=== PATIENT | male | born 1955 | race Caucasian/White ===

== ENCOUNTER 2016-10-02 13:53 | Emergency (ER) | payer MEDICARE, MEDICAID ==
[~2016-10-02] VITALS: Ht 198.1 cm; Wt 122.5 kg
[~2016-10-02 13:53] MED LIST: ALPR1T PO; ALPR2TAB2 PO; AMLO5TAB2 PO; AMPH20TA2 PO; AMPH30TA2 PO; ASPI325T32 PO; ATOR10TA66 PO; CITA10TA PO; CLON2TAB22 PO; CLON2TAB3 PO; ESCT10T PO; HYDR1TAB8 PO; IBUP-30 PO; INSU100V5 SQ; KCL10CCR PO; LEVE500T PO; LIRA0.6P3 SQ; LISI5TAB; NFMET1000 PO; OLME1TAB25 PO; SULF1TAB38 PO; [UNRECOGNIZED DRUG - REMARK]
[2016-10-02] MEDS ORDERED: NS IV 500 ML 500 ML IV ONE (14:04)
[2016-10-02 14:10] LABS: BASOPHILS # (AUTO) 0.1 10^3/uL (0.0-0.1); BASOPHILS % (AUTO) 1 % (0-10); EOSINOPHILS # (AUTO) 0.2 10^3/uL (0.0-0.3); EOSINOPHILS % (AUTO) 2 % (0-10); LYMPHOCYTES # (AUTO) 2.6 X 10^3 (1.0-4.0); LYMPHOCYTES % (AUTO) 27 % (12-44); MEAN CORPUSCULAR HEMOGLOBIN 29 PG (25-34); MEAN CORPUSCULAR HGB CONC 35 G/DL (32-36); MEAN CORPUSCULAR VOLUME 85 FL (80-99); MEAN PLATELET VOLUME 9.8 FL (7.4-10.4); MONOCYTES # (AUTO) 0.6 X 10^3 (0.0-1.0); MONOCYTES % (AUTO) 6 % (0-12); NEUTROPHILS # (AUTO) 6.2 X 10^3 (1.8-7.8); NEUTROPHILS % (AUTO) 65 % (42-75); PLATELET COUNT 344 10^3/uL (130-400); RED BLOOD COUNT 5.72 10^6/uL (4.35-5.85); RED CELL DISTRIBUTION WIDTH 13.3 % (10.0-14.5); WHITE BLOOD COUNT 9.6 10^3/uL (4.3-11.0)
[2016-10-02 14:28] LABS: ALANINE AMINOTRANSFERASE 37 U/L (0-55); ALBUMIN 3.8 GM/DL (3.2-4.5); ALCOHOL < 10 MG/DL (<10); AMMONIA 21 UMOL/L (11-32); ANION GAP 7 MMOL/L (5-14); ASPARTATE AMINO TRANSFERASE 19 U/L (5-34); BILIRUBIN,TOTAL 0.4 MG/DL (0.1-1.0); BLOOD UREA NITROGEN 13 MG/DL (7-18); BUN/CREATININE RATIO 12; CALCIUM 8.7 MG/DL (8.5-10.1); CARBON DIOXIDE 26 MMOL/L (21-32); CHLORIDE 101 MMOL/L (98-107); CREATININE SERUM 1.06 MG/DL (0.60-1.30); GFR ESTIMATED > 60; GLUCOSE 280 MG/DL (70-105); MAGNESIUM 1.7 MG/DL (1.8-2.4); POTASSIUM 3.7 MMOL/L (3.6-5.0); SODIUM 134 MMOL/L (135-145)
--- NOTE | 2016-10-02 14:34 | Diagnostic Imaging Report ---
INDICATION: Difficulty speaking. TECHNIQUE: Routine non contrast-enhanced axial images were obtained from the skull base to the vertex. COMPARISON: 09/30/2013 FINDINGS: The ventricles and cortical sulci are diffusely prominent, compatible with age-related volume loss. There are confluent areas of abnormal, low attenuation in the periventricular white matter. This is consistent with chronic small vessel ischemic changes. Area of old small infarct is also noted involving the superolateral margins of the right frontal lobe. This is stable when compared to prior exam. There is no midline shift or mass-effect. No acute intra-axial hemorrhage is seen. There are no abnormal areas of increased or decreased density to suggest acute hemorrhage or edema. No extra-axial masses or collections are present. The bony calvarium is intact. The visualized paranasal sinuses are unremarkable. The mastoid air cells are clear. IMPRESSION: 1. No acute intracranial abnormality. No CT evidence of mass, acute infarct or intracranial hemorrhage. 2. Chronic small vessel ischemic changes in deep white matter. 3. Stable area of old small infarct involving the superolateral right frontal lobe. Dictated by: Dictated on workstation # [id number]
--- NOTE | 2016-10-02 14:39 | ED Neurological Problem ---
General Chief Complaint: Neuro-Stroke Like Symptoms Stated Complaint: CONFUSION Nursing Triage Note: Pt ambulatory to ED 3. Pt's family reports pt has had difficulty finding his words off and on for past 2 days. Family reports these symptoms are similar to pt's symptoms when he had a stroke 4 years ago. Pt alert but having diffuculty verbally answering questions during initial assessment. Family states pt "completely recovered" from prior stroke w/ no defecits. Nursing Sepsis Screen: No Definite Risk Source: patient, family Exam Limitations: clinical condition History of Present Illness Time seen by provider: 13:55 Initial Comments Patient ambulates into the emergency room with his significant other with complaints of difficulty finding words and speaking for about 2 days. Significant other is concerned because he apparently had a CVA several years ago that presented with similar symptoms. Patient woke up late today and has not taken his medications. Blood sugars have reportedly been high. Review of patient's chart notes that a prior MRI demonstrated stroke in the frontal lobe. A carotid ultrasound from 2013 was normal. Patient presents cuddling stuffed animals. Significant other states that he uses them for comfort since his stroke. Patient has been upset recently because his daughter has moved. She also reports symptoms have been present since patient returned from a libertarian 2 days ago. Patient is selectively cooperative with exam. Stroke activation was not pursued since symptoms have been present for 2 days. Patient denies any drug or alcohol use. He does have a history of hepatitis C but no mention of liver failure. Allergies and Home Medications Allergies Coded Allergies: NKANo Known Allergies (Verified Allergy, Unknown, 07/29/05) Home Medications Alprazolam 1 Mg Tab, 1-2 MG PO TID PRN for ANXIETY, (Reported) TAKES 1-2 (1MG) TABLETS NEEDED FOR ANXIETY Amlodipine Besylate 5 Mg Tab, 10 MG PO DAILY @ 1200 for 30 Days Prescribed by: FAUSTINO LARSON on 06/10/13 1435 Amphet Asp/Amphet/D-Amphet 20 Mg Tablet, 20 MG PO DAILY PRN for NERVOUSNESS for 0 Days Prescribed by: ALICJA QUINTANA on 10/01/13 0334 Aspirin 325 Mg Tablet.dr, 325 MG PO DAILY PRN for HEADACHE, (Reported) NEEDED FOR HEADACHE Atorvastatin Calcium 10 Mg Tablet, 10 MG PO DAILY for 30 Days Prescribed by: FAUSITNO LARSON on 06/10/13 1439 Citalopram Hydrobromide 10 Mg Tablet, 10 MG PO DAILY @ 1200, (Reported) Clonazepam 2 Mg Tablet, 2 MG PO HS, (Reported) Hydrocodone Bit/Ibuprofen 1 Each Tablet, 1 TAB PO Q6H PRN for PAIN, (Reported) NEEDED FOR PAIN 7.5-200MG TABLET Insulin Detemir 100 U/Ml Vial, 46 U SQ HS, (Reported) Levetiracetam 500 Mg Tab, 750 MG PO BID, #60 Ref 0 Prescribed by: SHANNAN DHILLON on 10/05/13 0956 Liraglutide 0.6 Mg/0.1 Ml Pen.injctr, 1.8 MG SQ DAILY @ 1200, (Reported) Metformin Hcl 1,000 Mg Tablet, 500 MG PO BID, (Reported) Ol[place]artn/Hydrochlorothiazide 1 Tab Tablet, 1 TAB PO DAILY @ 1200, (Reported) 40-25MG TABLET Potassium Chloride 10 Meq Capcr, 10 MEQ PO DAILY@0700 for 30 Days Prescribed by: FAUSTINO LARSON on 06/10/13 1435 Constitutional: no symptoms reported Eyes: No Symptoms Reported Ears, Nose, Mouth, Throat: no symptoms reported Respiratory: no symptoms reported Cardiovascular: no symptoms reported Gastrointestinal: no symptoms reported Genitourinary: no symptoms reported Musculoskeletal: no symptoms reported Skin: no symptoms reported Psychiatric/Neurological: See HPI Endocrine: See HPI Hematologic/Lymphatic: No Symptoms Reported Past Hcqjmjb-Hzfrih-Spctum Hx Patient Social History Alcohol Use: Denies Use Recreational Drug Use: No Smoking Status: Current Someday Smoker Type Used: Cigarettes Recent Foreign Travel: No Contact w/Someone Who Travel: No Recent Infectious Disease Expo: No Recent Hopitalizations: No Immunizations Up To Date Date of Pneumonia Vaccine: Jun 10, 2013 Date of Influenza Vaccine: Dec 02, 2013 Surgeries HX Surgeries: Yes (LIPOMA REMOVAL/LIVER BX) Respiratory Hx Respiratory Disorders: No Cardiovascular Hx Cardiac Disorders: Yes Cardiac Disorders: Hypertension Neurological Hx Neurological Disorders: Yes Neurological Disorders: Seizure Disorder, Stroke Genitourinary Hx Genitourinary Disorders: No Gastrointestinal Hx Gastrointestinal Disorders: Yes Gastrointestinal Disorders: Hepatitis (Hepatitis C) Musculoskeletal Hx Musculoskeletal Disorders: No Endocrine Hx Endocrine Disorders: Yes Endocrine Disorders: Diabetes, Insulin dep HEENT HX ENT Disorders: No Cancer Hx Cancer: No Psychosocial Hx Psychiatric Problems: Yes Behavioral Health Disorders: Anxiety, Depression Integumentary HX Skin/Integumentary Disorder: No Blood Transfusions Hx Blood Disorders: Yes (HEPATITIS C) Adverse Reaction to a Blood Tr: No Family Medical History Family Medial History: Family history: Cardiovascular disease 03 FATHER (MACKENZIE PARKINSONS SYNDROME) Family history: Hypertension 03 FATHER History of - disorder 03 MOTHER (DEPRESSION) 09 SISTER (MENTAL HEALTH ISSUES) Physical Exam Vital Signs Vital Sign - Last 12Hours 10/02/16 13:59 Temp 98.2 Pulse 95 Resp 18 B/P (MAP) 172/119 Pulse Ox 95 O2 Delivery Room Air Capillary Refill : Less Than 3 Seconds General Appearance: WD/WN, mild distress HEENT: PERRL/EOMI, normal ENT inspection, pharynx normal Neck: normal inspection Respiratory: lungs clear, normal breath sounds, no respiratory distress, no accessory muscle use Cardiovascular: regular rate, rhythm, no edema, no murmur Gastrointestinal: normal bowel sounds, non tender, soft Extremities: normal inspection, no pedal edema Neurologic/Psychiatric: no motor/sensory deficits, alert, other (Patient appears to have some difficulty with word finding. NIH score performed by nursing staff was zero) Crainal Nerves: normal hearing, PERRL, other (Difficulty with word finding) Coordination/Gait: normal finger to nose Motor/Sensory: no motor deficit, no sensory deficit Skin: normal color, warm/dry Stroke Onset of Symptoms Date of Onset of Symptoms: Sep 30, 2016 NIH Stroke Scale Assessment Select: Initial Level of Consciousness: 0=Alert Level of Consciousness-Questio: 0=Answers both month/age LOC Commands: 0=Performs both tasks Gaze: 0=Normal Visual [place]: 0=No visual loss Facial Movement (Facial Paresi: 0=Normal symmetrical mnt Motor Function-Arms Right: 0=No drift Motor Function-Arms Left: 0=No drift Motor Function-Legs Right: 0=No drift Motor Function-Legs Left: 0=No drift Limb Ataxia: 0=Absent Sensory: 0=Normal:no loss Best Language: 0=No aphasia Dysarthria: 0=Normal Extinction & Inattention: 0=No abnormality NIH Stroke Scale Score: 0 Stroke Thrombolytic Exclusion Age 18 or Over: Yes Progress/Results/Core Measures Results/Orders Lab Results Laboratory Tests Test 10/02/16 13:55 10/02/16 13:58 10/02/16 15:15 Range/Units White Blood Count 9.6 4.3-11.0 10^3/uL Red Blood Count 5.72 4.35-5.85 10^6/uL Hemoglobin 16.8 13.3-17.7 G/DL Hematocrit 48 40-54 % Mean Corpuscular Volume 85 80-99 FL Mean Corpuscular Hemoglobin 29 25-34 PG Mean Corpuscular Hemoglobin Concent 35 32-36 G/DL Red Cell Distribution Width 13.3 10.0-14.5 % Platelet Count 344 130-400 10^3/uL Mean Platelet Volume 9.8 7.4-10.4 FL Neutrophils (%) (Auto) 65 42-75 % Lymphocytes (%) (Auto) 27 12-44 % Monocytes (%) (Auto) 6 0-12 % Eosinophils (%) (Auto) 2 0-10 % Basophils (%) (Auto) 1 0-10 % Neutrophils # (Auto) 6.2 1.8-7.8 X 10^3 Lymphocytes # (Auto) 2.6 1.0-4.0 X 10^3 Monocytes # (Auto) 0.6 0.0-1.0 X 10^3 Eosinophils # (Auto) 0.2 0.0-0.3 10^3/uL Basophils # (Auto) 0.1 0.0-0.1 10^3/uL Sodium Level 134 L 135-145 MMOL/L Potassium Level 3.7 3.6-5.0 MMOL/L Chloride Level 101 98-107 MMOL/L Carbon Dioxide Level 26 21-32 MMOL/L Anion Gap 7 5-14 MMOL/L Blood Urea Nitrogen 13 7-18 MG/DL Creatinine 1.06 0.60-1.30 MG/DL Estimat Glomerular Filtration Rate > 60 BUN/Creatinine Ratio 12 Glucose Level 280 H 70-105 MG/DL Calcium Level 8.7 8.5-10.1 MG/DL Magnesium Level 1.7 L 1.8-2.4 MG/DL Total Bilirubin 0.4 0.1-1.0 MG/DL Aspartate Amino Transf (AST/SGOT) 19 5-34 U/L Alanine Aminotransferase (ALT/SGPT) 37 0-55 U/L Alkaline Phosphatase 120 40-136 U/L Ammonia 21 11-32 UMOL/L Total Protein 7.0 6.4-8.2 GM/DL Albumin 3.8 3.2-4.5 GM/DL Serum Alcohol < 10 <10 MG/DL Glucometer 247 H 70-110 MG/DL Urine Color YELLOW Urine Clarity CLEAR Urine pH 6.5 5-9 Urine Specific [place] 1.010 L 1.016-1.022 Urine Protein NEGATIVE NEGATIVE Urine Glucose (UA) 4+ H NEGATIVE Urine Ketones NEGATIVE NEGATIVE Urine Nitrite NEGATIVE NEGATIVE Urine Bilirubin NEGATIVE NEGATIVE Urine Urobilinogen NORMAL NORMAL MG/DL Urine Leukocyte Esterase NEGATIVE NEGATIVE Urine RBC (Auto) NEGATIVE NEGATIVE Urine RBC RARE /HPF Urine WBC NONE /HPF Urine Crystals NONE /LPF Urine Bacteria NONE /HPF Urine Casts NONE /LPF Urine Mucus NEGATIVE /LPF Urine Culture Indicated NO Urine Opiates Screen NEGATIVE NEGATIVE Urine Oxycodone Screen NEGATIVE NEGATIVE Urine Methadone Screen NEGATIVE NEGATIVE Urine Propoxyphene Screen NEGATIVE NEGATIVE Urine Barbiturates Screen NEGATIVE NEGATIVE Ur Tricyclic Antidepressants Screen NEGATIVE NEGATIVE Urine Phencyclidine Screen NEGATIVE NEGATIVE Urine Amphetamines Screen POSITIVE H NEGATIVE Urine Methamphetamines Screen POSITIVE H NEGATIVE Urine Benzodiazepines Screen NEGATIVE NEGATIVE Urine Cocaine Screen NEGATIVE NEGATIVE Urine Cannabinoids Screen NEGATIVE NEGATIVE My Orders Orders - KEVIN WEEKS MD Alcohol (10/02/16 14:04) Ammonia (10/02/16 14:04) Cbc With Automated Diff (10/02/16 14:04) Comprehensive Metabolic Panel (10/02/16 14:04) Drug Screen Stat (Urine) (10/02/16 14:04) Magnesium (10/02/16 14:04) Ua Culture If Indicated (10/02/16 14:04) Accucheck Stat ONCE (10/02/16 14:04) Saline Lock/Iv-Start (10/02/16 14:04) Monitor-Rhythm Ecg Trace Only (10/02/16 14:04) Ns Iv 500 Ml (Sodium Chloride 0.9%) (10/02/16 14:04) Ct Head Wo-R/O Stroke (10/02/16 14:08) Chest 1 View, Ap/Pa Only (10/02/16 14:09) Levetiracetam Injection (Keppra Injectio (10/02/16 16:00) Ketorolac Injection (Toradol Injection) (10/02/16 16:30) Medications Given in ED Current Medications Medications Dose Ordered Sig/Nacho Route Start Time Stop Time Status Last Admin Dose Admin Ketorolac Tromethamine 15 mg ONCE ONCE IVP 10/02/16 16:30 10/02/16 16:31 DC 10/02/16 16:20 15 MG Levetiracetam 1000 mg/Sodium Chloride 110 ml @ 440 mls/hr ONCE ONCE IV 10/02/16 16:00 10/02/16 16:14 DC 10/02/16 16:00 440 MLS/HR Sodium Chloride 500 ml @ 0 mls/hr Q0M ONCE IV 10/02/16 14:04 10/02/16 14:06 DC 10/02/16 14:13 500 MLS/HR Vital Signs/I&O Vital Sign - Last 12Hours 10/02/16 10/02/16 13:59 17:20 Temp 98.2 Pulse 95 84 Resp 18 18 B/P (MAP) 172/119 Pulse Ox 95 95 O2 Delivery Room Air Blood Pressure Mean: 136 Progress Note : Progress Note Patient's workup was essentially unremarkable. Ammonia level was normal. CT showed prior stroke but no acute or subacute infarct. Patient did have 2 very brief episodes of partial body tremoring which may have been partial seizures. Patient had not yet taken his Keppra prior to arrival. Keppra 1000 mg IV was administered. Patient was observed for at least one hour after administration of Keppra. There were no other neurologic episodes after Keppra administration. Patient received 500 mL bolus of saline. Patient complained of headache after the convulsive seizure like activity. Toradol 50 mg IV was administered. Blood pressure improved during his ER stay. Patient's drug screen was positive for methamphetamines. When confronted about this, patient remarks that he "doesn't know" if he used methamphetamines but acknowledges this could have happened at the libertarian he attended prior to onset of symptoms. Patient and significant other were anxious to depart after a one hour observation and were dismissed. Diagnostic Imaging Diagonstic Imaging: CT Plain Films/CT/US/NM/MRI: head Comments CT head viewed by me and report reviewed. See report below: NAME: EDDIE CARRANZA [facility] REC#: [id number] PT STATUS: REG ER : 1955 PHYSICIAN: KEVIN WEEKS MD ADMIT DATE: 10/02/16/ER Draft Date of Exam:10/02/16 CT HEAD WO-R/O STROKE INDICATION: Difficulty speaking. TECHNIQUE: Routine non contrast-enhanced axial images were obtained from the skull base to the vertex. COMPARISON: 09/30/2013 FINDINGS: The ventricles and cortical sulci are diffusely prominent, compatible with age-related volume loss. There are confluent areas of abnormal, low attenuation in the periventricular white matter. This is consistent with chronic small vessel ischemic changes. Area of old small infarct is also noted involving the superolateral margins of the right frontal lobe. This is stable when compared to prior exam. There is no midline shift or mass-effect. No acute intra-axial hemorrhage is seen. There are no abnormal areas of increased or decreased density to suggest acute hemorrhage or edema. No extra-axial masses or collections are present. The bony calvarium is intact. The visualized paranasal sinuses are unremarkable. The mastoid air cells are clear. IMPRESSION: 1. No acute intracranial abnormality. No CT evidence of mass, acute infarct or intracranial hemorrhage. 2. Chronic small vessel ischemic changes in deep white matter. 3. Stable area of old small infarct involving the superolateral right frontal lobe. Dictated on workstation # [id number] Dict: 10/02/16 1430 Trans: 10/02/16 1433 [id number] Interpreted by: RYAN SENA Imaging: Xray Plain Films/CT/US/NM/MRI: chest Comments Chest x-ray viewed by me and report reviewed. See report below: NAME: EDDIE CARRANZA [facility] REC#: [id number] PT STATUS: REG ER : 1955 PHYSICIAN: KEVIN WEEKS MD ADMIT DATE: 10/02/16/ER Signed Date of Exam: 10/02/16 CHEST 1 VIEW, AP/PA ONLY CHEST 1 VIEW, AP/PA ONLY Indication: Altered mental status, change in mental status. Comparison: 12/05/13 Findings: No focal airspace disease in the visualized lungs. Please note that the posterior lower lobes are poorly evaluated by portable radiography. No pleural effusion or pneumothorax. Normal cardiomediastinal silhouette. Impression: No acute cardiopulmonary process by portable radiography. Dictated by: Dictated on workstation # [id number] Dict: 10/02/16 1503 Trans: 10/02/16 1503 Interpreted by: HONORIO GALINDO MD Electronically signed by: HONORIO GALINDO MD 10/02/16 1503 Departure Impression Impression: Primary Impression: Expressive aphasia Additional Impressions: Partial seizure Methamphetamine abuse Disposition: 01 HOME, SELF-CARE Condition: Improved Departure-Patient Inst. Decision time for Depature: 17:13 Referrals: [facility] (PCP/Family) Primary Care Physician Patient Instructions: Methamphetamine, Seizures Add. Discharge Instructions: Continue with your Keppra as previously prescribed. Follow-up with your primary care provider soon as possible. Return to the emergency room if symptoms worsen. All discharge instructions reviewed with patient and/or family. Voiced understanding. KEVIN WEEKS MD Oct 02, 2016 14:39
--- NOTE | 2016-10-02 15:06 | Diagnostic Imaging Report ---
CHEST 1 VIEW, AP/PA ONLY Indication: Altered mental status, change in mental status. Comparison: 12/05/13 Findings: No focal airspace disease in the visualized lungs. Please note that the posterior lower lobes are poorly evaluated by portable radiography. No pleural effusion or pneumothorax. Normal cardiomediastinal silhouette. Impression: No acute cardiopulmonary process by portable radiography. Dictated by: Dictated on workstation # [id number]
[2016-10-02 15:35] LABS: BILIRUBIN,URINE NEGATIVE (NEGATIVE); KETONES,URINE NEGATIVE (NEGATIVE); LEUKOCYTE ESTERASE ,URINE NEGATIVE (NEGATIVE); NITRITE,URINE NEGATIVE (NEGATIVE); PH,URINE 6.5 (5-9); PROTEIN,URINE NEGATIVE (NEGATIVE); UROBILINOGEN,URINE NORMAL (NORMAL)
[2016-10-02] MEDS ORDERED: LEVETIRACETAM INJECTION 1,000 MG in NS (IVPB) 100 ML IV ONE (16:00)
[2016-10-02] MEDS ORDERED: KETOROLAC 30 MG/ML VIAL IVP ONE (16:30)
[2016-10-02 17:20] VITALS: BP 163/99
--- OUTSIDE RECORDS SUMMARY | 2016-10-11 18:32 | XMS REPORT ---
Author MELISSA Junior Organization [employer] Address Unknown Phone Unavailable Care Team Providers Care Extractor Machine Operator Name Role Phone MELISSA FERNANDEZ CP Unavailable Allergies No Known Allergies Problems Problem Type Condition Code Onset Dates Condition Status Problem Diabetes type 2, uncontrolled E11.65 Active Problem Anxiety F41.9 Active Problem detention 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.899 Active Problem Noncompliance of patient with dietary regimen Z91.11 Active Problem Noncompliance w/medication treatment due to intermit use of medication Z91.14 Active Problem Mood disorder F39 Active Problem Attention deficit hyperactivity disorder (ADHD), predominantly inattentive type F90.0 Active Medications No Known Medications Results No Known Results Summary Purpose [employer] Submission
--- OUTSIDE RECORDS SUMMARY | 2016-10-11 18:32 | XMS REPORT ---
Author Author MELISSA FERNANDEZ Organization [facility] Address [address] [place] [address] Care Team Providers Care Uniform Patrol Police Officer Name Role Phone MELISSA FERNANDEZ Unavailable PROBLEMS Type Condition ICD9-CM Code HBS35-[place] Code Onset Dates Condition Status SNOMED Code Problem Attention deficit hyperactivity disorder (ADHD), predominantly inattentive type F90.0 Active 76709170 Problem Anxiety F41.9 Active 65845748 Problem Mood disorder F39 Active 47948177 Assessment Noncompliance w/medication treatment due to intermit use of medication Z91.14 Oct, Active 012596542 Problem Noncompliance w/medication treatment due to intermit use of medication Z91.14 Active 336105209 Problem Noncompliance of patient with dietary regimen Z91.11 Active 426341169 Problem Generalized anxiety disorder F41.1 Active 30858129 Problem Attention deficit hyperactivity disorder, combined type F90.2 Active 41883825 Problem alf 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.899 Active 723395673 Problem Diabetes type 2, uncontrolled E11.65 Active 359662303 Problem Major depression, chronic F32.9 Active 429273224 Problem Recurrent major depressive disorder, in partial remission F33.41 Active 55431263 ALLERGIES Unknown Allergies SOCIAL HISTORY No smoking Hx information available PLAN OF CARE VITAL SIGNS MEDICATIONS Unknown Medications RESULTS Name Result Date Reference Range URINE DRUG SCREEN (IN HOUSE) Lot # [id number] Exp date Mar 2017 Control + COCAINE Negative AMPH POSITIVE MTD Negative THC Negative OPIATE Negative BENZO POSITIVE PCP Negative BAR Negative OXY Negative MAMP POSITIVE TCA Negative MDMA Negative PROCEDURES Procedure Date Ordered Related Diagnosis Body Site DRUG SCREEN NON TLC DEVICES Nov 15, 2015 IMMUNIZATIONS No Known Immunizations
--- OUTSIDE RECORDS SUMMARY | 2016-10-11 18:32 | XMS REPORT | Clinical Summary ---
Author Author [facility] Organization [facility] Address Unknown Phone Unavailable Care Team Providers Care Forge Operator Name Role Phone PCP Unavailable Source Comments Some departments are not documenting in the electronic medical record. If you do not see the information that you expected, contact Release of Information in the Health Information Management department at [phone] for further assistance in locating additional records.[facility] Allergies Not on File Current Medications Not on file Active Problems Not on file Social History Tobacco Use Types Packs/Day Years Used Date Never Assessed Sex Assigned at Date Recorded Not on file Last Filed Vital Signs Not on file Plan of Treatment Health Maintenance Due Date Last Done Comments HEPATITIS C SCREENING 1957 PHYSICAL (COMPREHENSIVE) 1964 EXAM PERTUSSIS VACCINE 1968 TETANUS VACCINE 1974 CERVICAL CANCER SCREENING 11/06/1987 BREAST CANCER SCREENING 1997 COLORECTAL CANCER 11/06/2007 SCREENING INFLUENZA VACCINE 11/17/2016 Results Not on filefrom Last 3 Months
--- OUTSIDE RECORDS SUMMARY | 2016-10-11 18:33 | XMS REPORT ---
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 Problem Encounter for long-term (current) use of other medications V58.69 Active Problem Other and unspecified bipolar disorders 296.89 Active Problem Hypocalcemia 275.41 Active Problem Chest pain, unspecified 786.50 Active Problem Hypopotassemia 276.8 Active Problem Attention deficit disorder of childhood without mention of hyperactivity 314.00 Active Problem Major depressive disorder, recurrent episode, severe, specified as with psychotic behavior 296.34 Active Problem Diabetes with renal manifestations, type II or unspecified type, uncontrolled 250.42 Active Problem Generalized anxiety disorder 300.02 Active Assessment Type 2 diabetes mellitus with hyperglycemia E11.65 Active Assessment 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
--- OUTSIDE RECORDS SUMMARY | 2016-10-11 18:33 | XMS REPORT ---
Author MELISSA Junior Organization [employer] Address Unknown Phone Unavailable Care Team Providers Care Linotype Mechanic Name Role Phone MELISSA FERNANDEZ CP Unavailable Allergies No Known Allergies Problems Problem Type Condition Code Onset Dates Condition Status Problem Anxiety F41.9 Active Problem Mood disorder F39 Active Problem Diabetes type 2, uncontrolled E11.65 Active Problem Noncompliance w/medication treatment due to intermit use of medication Z91.14 Active Problem Attention deficit hyperactivity disorder (ADHD), predominantly inattentive type F90.0 Active Problem Noncompliance of patient with dietary regimen Z91.11 Active Medications Medication Code System Code Instructions Start Date End Date Status Dosage Vicoprofen [facility] [address]-18 7.5-200 MG Orally every 6 hrs as needed for pain (DO NOT EXCEED 5 TABS/24HRS, MUST LAST 30 DAYS). July 24, 2014 1 tablet as needed Results No Known Results Summary Purpose [employer] Submission
--- OUTSIDE RECORDS SUMMARY | 2016-10-11 18:33 | XMS REPORT ---
Author MELISSA Junior [facility] [employer] Address Unknown Phone Unavailable Care Team Providers Care Railroad Car Checker Name Role Phone MELISSA FERNANDEZ CP Unavailable Allergies No Known Allergies Problems Problem Type Condition Code Onset Dates Condition Status Assessment Noncompliance w/medication treatment due to intermit use of medication Z91.14 Active Problem Diabetes type 2, uncontrolled E11.65 Active Problem Anxiety F41.9 Active Problem buttermaker 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.899 Active Problem Noncompliance of patient with dietary regimen Z91.11 Active Problem Noncompliance w/medication treatment due to intermit use of medication Z91.14 Active Problem Mood disorder F39 Active Problem Attention deficit hyperactivity disorder (ADHD), predominantly inattentive type F90.0 Active Medications Medication Code System Code Instructions Start Date End Date Status Dosage Vicoprofen [facility] [address]-42 7.5-200 MG Orally every 6 hrs as needed for pain (DO NOT EXCEED 5 TABS/24HRS, MUST LAST 30 DAYS). July 24, 2014 1 tablet as needed Procedures Procedure Coding System Code Date No Charge CPT-4 61037 Nov 11, 2015 Results No Known Results Summary Purpose [employer] Submission
--- OUTSIDE RECORDS SUMMARY | 2016-10-11 18:33 | XMS REPORT ---
Author MELISSA Junior Organization [employer] Address Unknown Phone Unavailable Care Team Providers Care Procedure Tech Name Role Phone MELISSA FERNANDEZ CP Unavailable [...] Instructions Start Date End Date Status Dosage OneTouch Ultra Test [facility] [id number] USE ONE STRIP TO TEST TWICE A DAY. DX E11.65 Results No Known Results Summary Purpose [employer] Submission
--- OUTSIDE RECORDS SUMMARY | 2016-10-11 18:33 | XMS REPORT ---
Author Author ANNE HU [facility] [employer] Address Unknown Phone Unavailable Care Team Providers Care Reservations Manager Name Role Phone ANNE HU CP Unavailable Allergies No Known Allergies Problems [...] Instructions Start Date End Date Status Dosage Vyvanse [facility] [address]-12 50 MG Orally Once a day. Dr Vargas to sign for Zachery Dec 30, 2014 1 capsule in the morning Results No Known Results Summary Purpose [employer] Submission
--- OUTSIDE RECORDS SUMMARY | 2016-10-11 18:33 | XMS REPORT ---
Author MELISSA Junior Organization [employer] Address Unknown Phone Unavailable Care Team Providers Care Aws Software Development Engineer Name Role Phone MELISSA FERNANDEZ CP Unavailable Allergies No Known Allergies Problems Problem Type Condition Code Onset Dates Condition Status Problem Noncompliance w/medication treatment due to intermit use of medication Z91.14 Active Problem Attention deficit hyperactivity disorder (ADHD), predominantly inattentive type F90.0 Active Problem Noncompliance of patient with dietary regimen Z91.11 Active Problem Major depression F32.9 Active Problem Attention deficit hyperactivity disorder, combined type F90.2 Active Problem Generalized anxiety disorder F41.1 Active Problem Anxiety F41.9 Active Problem Mood disorder F39 Active Problem group home 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.899 Active Problem Diabetes type 2, uncontrolled E11.65 Active Medications No Known Medications Results No Known Results Summary Purpose [employer] Submission
--- OUTSIDE RECORDS SUMMARY | 2016-10-11 18:33 | XMS REPORT ---
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 Problem Encounter for long-term (current) use of other medications V58.69 Active Problem Other and unspecified bipolar disorders 296.89 Active Problem Other convulsions 780.39 Active Problem Hypocalcemia 275.41 Active Problem Chest pain, unspecified 786.50 Active Problem Hypopotassemia 276.8 Active Problem Attention deficit disorder of childhood without mention of hyperactivity 314.00 Active Problem Major depressive disorder, recurrent episode, severe, specified as with psychotic behavior 296.34 Active Problem Diabetes with renal manifestations, type II or unspecified type, uncontrolled 250.42 Active Problem Generalized anxiety disorder 300.02 Active Medications Medication Code System Code Instructions Start Date End Date Status Dosage Vyvanse [facility] [address]-90 50 MG Orally Once a day. Dr Vargas to sign for Zachery Dec 30, 2014 1 capsule in the morning Results No Known Results Summary Purpose [employer] Submission
--- OUTSIDE RECORDS SUMMARY | 2016-10-11 18:33 | XMS REPORT ---
Author Author ANNE HU Organization [employer] Address Unknown Phone Unavailable Care Team Providers Care Hazmat Tanker Driver Name Role Phone ANNE HU CP Unavailable [...] Start Date End Date Status Dosage Vyvanse [facility] [address]-14 40 MG Orally Once a day Anne-Marie to sign for Ronald Dec 16, 2014 1 capsule in the morning Results No Known Results Summary Purpose [employer] Submission
--- OUTSIDE RECORDS SUMMARY | 2016-10-11 18:33 | XMS REPORT ---
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 driver 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.899 Active Problem Noncompliance of patient with dietary regimen Z91.11 Active Problem Noncompliance w/medication treatment due to intermit use of medication Z91.14 Active Problem Mood disorder F39 Active Problem Attention deficit hyperactivity disorder (ADHD), predominantly inattentive type F90.0 Active Medications Medication Code System Code Instructions Start Date End Date Status Dosage Valium [facility] [address]-14 5 MG Orally as needed Twice a day Apr 21, 2015 1 tablet as needed Vyvanse [facility] [address]-92 50 MG Orally Once a day. Dr Vargas to sign for Zachery Dec 30, 2014 1 capsule in the morning Results No Known Results Summary Purpose eClinicalWorks Submission
--- OUTSIDE RECORDS SUMMARY | 2016-10-11 18:33 | XMS REPORT ---
Author MELISSA Junior Organization [employer] Address Unknown Phone Unavailable Care Team Providers Care Petroleum Refinery Laborer Name Role Phone MELISSA FERNANDEZ CP Unavailable [...] Problem Generalized anxiety disorder 300.02 Active Medications No Known Medications Results No Known Results Summary Purpose eClinicalWorks Submission
--- OUTSIDE RECORDS SUMMARY | 2016-10-11 18:33 | XMS REPORT ---
Author MELISSA Junior Organization [employer] Address Unknown Phone Unavailable Care Team Providers Care Environmental Inspector Name Role Phone MELISSA FERNANDEZ CP Unavailable [...]
--- OUTSIDE RECORDS SUMMARY | 2016-10-11 18:33 | XMS REPORT ---
Author MELISSA Junior Organization [employer] Address Unknown Phone Unavailable Care Team Providers Care Park Superintendent Name Role Phone MELISSA FERNANDEZ CP Unavailable [...] Start Date End Date Status Dosage Vicoprofen [facility] [place] [address]-80 7.5-200 MG Orally every 6 hrs as needed for pain (DO NOT EXCEED 5 TABS/24HRS). July 24, 2014 1 tablet as needed Results No Known Results Summary Purpose [employer] Submission
--- OUTSIDE RECORDS SUMMARY | 2016-10-11 18:33 | XMS REPORT ---
Author MELISSA Junior [facility] eClinicalWorks Address Unknown Phone Unavailable Care Team Providers Care Floor Person Name Role Phone MELISSA FERNANDEZ CP Unavailable Allergies, Adverse Reactions, Alerts Substance Reaction Event Type N.K.D.A. Info Not Available Non Drug Allergy Problems Problem Type Condition Code Onset Dates Condition Status Problem Anxiety F41.9 Active Problem Mood disorder F39 Active Problem Diabetes type 2, uncontrolled E11.65 Active Problem Noncompliance w/medication treatment due to intermit use of medication Z91.14 Active Assessment Diabetes type 2, uncontrolled E11.65 Active Problem Attention deficit hyperactivity disorder (ADHD), predominantly inattentive type F90.0 Active Problem Noncompliance of patient with dietary regimen Z91.11 Active Medications Medication Code System Code Instructions Start Date End Date Status Dosage Vicoprofen [facility] [address]-89 7.5-200 MG Orally every 6 hrs as needed for pain (DO NOT EXCEED 5 TABS/24HRS, MUST LAST 30 DAYS). July 24, 2014 1 tablet as needed Lexapro [facility] 69033359520 20 MG Orally Once a day 1 tablet Atorvastatin Calcium [facility] [address]-63 10 MG Orally Once a day 1 tablet Amlodipine Besylate [facility] 01891326432 10 MG TAKE ONE TABLET BY MOUTH DAILY Aspirin [facility] [address]-00 325 mg June 18, 2013 take 1 tablet ( 325 mg) by oral route once daily Clonazepam [facility] [address]-93 1 MG TAKE ONE TABLET BY MOUTH AT BEDTIME NEEDED Levemir FlexTouch [facility] 36296594284 100 UNIT/ML INJECT 60 UNITS SUBCUTANEOUSLY DAILY (MUST HAVE DM FOLLOW-UP APPOINTMENT FOR REFILLS!!!) Victoza [facility] 72401177995 18 MG/3ML INJECT 1.8 MG SUBCUTANEOUSLY DAILY Metformin HCl [facility] [address]-62 1000 MG Twice a day TAKE ONE TABLET Benicar HCT [facility] [address]-76 40-25 MG Orally Once a day June 15, 2014 1 tablet Vyvanse [facility] [address]-64 50 MG Orally Once a day. Dr Vargas to sign for Zachery Dec 30, 2014 1 capsule in the morning OneTouch Delica Lancets 33G [facility] 86520433963 33 USE ONE LANCET TO TEST TWO TIMES A DAY OneTouch Ultra Test [facility] 13013482415 USE ONE STRIP TO TEST TWICE A DAY Alprazolam [facility] [address]-06 1 MG TAKE ONE TABLET BY MOUTH TWICE DAILY NEEDED Potassium Chloride Nessa ER [facility] 05021987419 10 MEQ TAKE ONE TABLET BY MOUTH ONCE DAILY Keppra [facility] [address]-90 750 MG 2 times a day Apr 14, 2014 1 tablet Procedures Procedure Coding System Code Date Office Visit, Est Pt., Level 3 CPT-4 13694 Feb 15, 2015 [facility] VISIT ESTABLISHED PATIENT CPT-4 G0467 Feb 15, 2015 Vital Signs Date/Time: Feb 15, 2015 Temperature 97.6 F Weight 276.4 lbs Height 77 in BMI 32.77 Index Blood Pressure Diastolic 90 mmHg Blood Pressure Systolic 142 mmHg Cardiac Monitoring Heart Rate 98 bpm Results No Known Results Summary Purpose eClinicalWorks Submission
--- OUTSIDE RECORDS SUMMARY | 2016-10-11 18:33 | XMS REPORT ---
Author MELISSA Junior Organization eClinical[employer] Address Unknown Phone Unavailable Care Team Providers Care Guest Services Ambassador Name Role Phone MELISSA FERNANDEZ CP Unavailable [...] Start Date End Date Status Dosage Vicoprofen [facility] [address]-91 7.5-200 MG Orally every 6 hrs as needed for pain (DO NOT EXCEED 5 TABS/24HRS, MUST LAST 30 DAYS). July 24, 2014 1 tablet as needed Results No Known Results Summary Purpose eClinicalWorks Submission
--- OUTSIDE RECORDS SUMMARY | 2016-10-11 18:33 | XMS REPORT ---
Author Author ANNE HU Organization eClinical[employer] Address Unknown Phone Unavailable Care Team Providers Care Environmental Technology Professor Name Role Phone ANNE HU CP Unavailable Allergies No Known Allergies Problems Problem Type Condition ICD-9 Code Onset Dates Condition Status Problem Aphasia [...] Instructions Start Date End Date Status Dosage Alprazolam [facility] 69169609513 1 MG TAKE ONE TABLET BY MOUTH TWICE DAILY NEEDED Clonazepam [facility] 77987848334 1 MG TAKE ONE TABLET BY MOUTH AT BEDTIME NEEDED Results No Known Results Summary Purpose eClinicalWorks Submission
--- OUTSIDE RECORDS SUMMARY | 2016-10-11 18:34 | XMS REPORT ---
Author Author ANNE HU Organization eClinical[employer] Address Unknown Phone Unavailable Care Team Providers Care Corporate Librarian Name Role Phone ANNE HU CP Unavailable [...] Start Date End Date Status Dosage Vyvanse [facility] [address]-68 40 MG Orally Once a day qAM discontinue vyvanse 30 mg July 28, 2014 1 capsule Results No Known Results Summary Purpose eClinicalWorks Submission
--- OUTSIDE RECORDS SUMMARY | 2016-10-11 18:34 | XMS REPORT ---
Author MELISSA Junior Organization [employer] Address Unknown Phone Unavailable Care Team Providers Care Communications Assistant Name Role Phone MELISSA FERNANDEZ CP Unavailable [...] Start Date End Date Status Dosage Vicoprofen [facility] [address]-56 7.5-200 MG Orally every 6 hrs as needed for pain (DO NOT EXCEED 5 TABS/24HRS). July 24, 2014 1 tablet as needed Results No Known Results Summary Purpose eClinicalWorks Submission
--- OUTSIDE RECORDS SUMMARY | 2016-10-11 18:34 | XMS REPORT ---
Author MELISSA Junior Organization [employer]ClinicalWorks Address Unknown Phone Unavailable Care Team Providers Care Pressure Tester Operator Name Role Phone MELISSA FERNANDEZ CP Unavailable Allergies No Known Allergies Problems Problem Type Condition Code Onset Dates Condition Status Problem Diabetes type 2, uncontrolled E11.65 Active Problem Anxiety F41.9 Active Problem [facility] 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.899 Active Problem Noncompliance of patient with dietary regimen Z91.11 Active Problem Noncompliance w/medication treatment due to intermit use of medication Z91.14 Active Problem Mood disorder F39 Active Problem Attention deficit hyperactivity disorder (ADHD), predominantly inattentive type F90.0 Active Medications No Known Medications Results No Known Results Summary Purpose eClinicalWorks Submission
--- OUTSIDE RECORDS SUMMARY | 2016-10-11 18:34 | XMS REPORT ---
Author Author ANNE HU [facility] Address Unknown Care Team Providers Care Follow Up Rep Name Role Phone FRITZANNE Unavailable PROBLEMS Type Condition ICD9-CM Code [id number] Code Onset Dates Condition Status SNOMED Code Problem Attention deficit hyperactivity disorder (ADHD), predominantly inattentive type F90.0 Active 22790705 Problem Anxiety F41.9 Active 18762639 Problem Mood disorder F39 Active 17974369 Assessment Generalized anxiety disorder F41.1 Dec, Active 49674951 Problem Noncompliance w/medication treatment due to intermit use of medication Z91.14 Active 858049728 Problem Noncompliance of patient with dietary regimen Z91.11 Active 196960930 Problem Generalized anxiety disorder F41.1 Active 31928566 Problem Attention deficit hyperactivity disorder, combined type F90.2 Active 68606393 Problem [facility] 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.899 Active 645827519 Problem Diabetes type 2, uncontrolled E11.65 Active 449109948 Problem Major depression, chronic F32.9 Active 634593812 Problem Recurrent major depressive disorder, in partial remission F33.41 Active 38849767 ALLERGIES Unknown Allergies SOCIAL HISTORY No smoking Hx information available PLAN OF CARE VITAL SIGNS Height 77 in 2016-01-12 Weight 266.9 lbs 2016-01-12 Heart Rate 80 bpm 2016-01-12 Respiratory Rate 20 2016-01-12 BMI 31.65 kg/m2 2016-01-12 Blood pressure systolic 156 mmHg 2016-01-12 Blood pressure diastolic 94 mmHg 2016-01-12 MEDICATIONS Medication Instructions Dosage Frequency Start Date End Date Duration Status Atorvastatin Calcium 10 MG TAKE ONE TABLET BY MOUTH ONCE DAILY 30 Active Benicar HCT 40-25 MG Orally Once a day 1 tablet 24h 30 Active Triamcinolone Acetonide 0.1 % Externally Twice a day 1 application to affected area 12h 30 Aug, 2015 Active Lantus 100 UNIT/ML Subcutaneous Once a day 60 units 24h Active Lexapro 20 mg Orally Once a day 1 tablet 24h 14 May, 2015 30 days Active OneTouch Ultra Test - USE ONE STRIP TO TEST TWICE A DAY 25 Active Potassium Chloride Nessa ER 10 MEQ TAKE ONE TABLET BY MOUTH ONCE DAILY 30 Active Victoza 18 MG/3ML INJECT 1.8 MG SUBCUTANEOUSLY DAILY 30 Active Levemir FlexTouch 100 UNIT/ML INJECT 60 UNITS SUBCUTANEOUSLY DAILY (MUST HAVE DIABETIC APPOINTMENT FOR REFILLS) 25 Active Amlodipine Besylate 10 MG TAKE ONE TABLET BY MOUTH DAILY 30 Active OneTouch Delica Lancets 33G 33 USE LANCETS TO TEST TWO TIMES A DAY 50 Active OneTouch Ultra Test USE ONE STRIP TO TEST TWICE A DAY. DX E11.65 Active Aspirin 325 mg take 1 tablet (325 mg) by oral route once daily Jun, Active Metformin HCl 1000 MG TAKE ONE TABLET 12h 30 Active Keppra 750 MG 1 tablet 12h Mar, 30 Active Zofran 8 MG Orally 3 times a day 1 tablet 8h 10 Active RESULTS No Results PROCEDURES Procedure Date Ordered Related Diagnosis Body Site [facility] VISIT ESTABLISHED PATIENT Jan 12, 2016 Office Visit, Est Pt., Level 3 Jan 12, 2016 IMMUNIZATIONS No Known Immunizations
--- OUTSIDE RECORDS SUMMARY | 2016-10-11 18:34 | XMS REPORT ---
Author Author ANNE HU Organization eClinicalWorks Address Unknown Phone Unavailable Care Team Providers Care Officer Lieutenant Name Role Phone ANNE HU CP Unavailable [...] Start Date End Date Status Dosage Alprazolam [facility] [address]-01 1 MG TAKE ONE TABLET BY MOUTH TWICE DAILY NEEDED Clonazepam [facility] [address]-87 1 MG TAKE ONE TABLET BY MOUTH AT BEDTIME NEEDED Results No Known Results Summary Purpose eClinicalWorks Submission
--- OUTSIDE RECORDS SUMMARY | 2016-10-11 18:34 | XMS REPORT ---
Author MELISSA Junior Organization [employer]ClinicalWorks Address Unknown Phone Unavailable Care Team Providers Care Disability Insurance Claim Examiner Name Role Phone MELISSA FERNANDEZ CP Unavailable Allergies No Known Allergies Problems Problem Type Condition Code Onset Dates Condition Status Assessment Diabetes type 2, uncontrolled E11.65 Active Problem Diabetes type 2, uncontrolled E11.65 Active Problem Anxiety F41.9 Active Problem 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 Active Problem Noncompliance of patient with dietary regimen Z91.11 Active Problem Noncompliance w/medication treatment due to intermit use of medication Z91.14 Active Problem Mood disorder F39 Active Problem Attention deficit hyperactivity disorder (ADHD), predominantly inattentive type F90.0 Active Medications Medication Code System Code Instructions Start Date End Date Status Dosage OneTouch Delica Lancets 33G [facility] [id number] 33 USE LANCETS TO TEST TWO TIMES A DAY OneTouch Ultra Test [facility] 87918782520 - USE ONE STRIP TO TEST TWICE A DAY Results No Known Results Summary Purpose eClinicalWorks Submission
--- OUTSIDE RECORDS SUMMARY | 2016-10-11 18:34 | XMS REPORT ---
Author MELISSA Junior Organization eClinicalWorks Address Unknown Phone Unavailable Care Team Providers Care Medical Office Representative Name Role Phone MELISSA FERNANDEZ CP Unavailable [...] Date Status Dosage Vicoprofen [facility] [address]-06 7.5-200 MG Orally every 6 hrs as needed for pain (DO NOT EXCEED 5 TABS/24HRS, MUST LAST 30 DAYS). July 24, 2014 1 tablet as needed Results No Known Results Summary Purpose eClinicalWorks Submission
--- OUTSIDE RECORDS SUMMARY | 2016-10-11 18:34 | XMS REPORT ---
Author MELISSA Junior Organization [employer]ClinicalWorks Address Unknown Phone Unavailable Care Team Providers Care Motor Teacher Name Role Phone MELISSA FERNANDEZ CP Unavailable [...]
--- OUTSIDE RECORDS SUMMARY | 2016-10-11 18:34 | XMS REPORT ---
Author Author ANNE HU Organization [employer]ClinicalWorks Address Unknown Phone Unavailable Care Team Providers Care Dumpster Operator Name Role Phone ANNE HU CP Unavailable [...] Start Date End Date Status Dosage Alprazolam [facility] [address]-83 1 MG TAKE ONE TABLET BY MOUTH TWICE DAILY NEEDED Clonazepam [facility] [address]-46 1 MG TAKE ONE TABLET BY MOUTH AT BEDTIME NEEDED Results No Known Results Summary Purpose eClinicalWorks Submission
--- OUTSIDE RECORDS SUMMARY | 2016-10-11 18:34 | XMS REPORT ---
Author Author ANNE HU [facility] eClinicalWorks Address Unknown Phone Unavailable Care Team Providers Care Blurb Writer Name Role Phone ANNE HU CP Unavailable [...] Start Date End Date Status Dosage Vyvanse [facility] [address]-27 50 MG Orally Once a day. Dr Vargas to sign for Zachery Dec 30, 2014 1 capsule in the morning Results No Known Results Summary Purpose eClinicalWorks Submission
--- OUTSIDE RECORDS SUMMARY | 2016-10-11 18:34 | XMS REPORT ---
Author Author ANNE HU Organization eClinicalWorks Address Unknown Phone Unavailable Care Team Providers Care Program Director Cable Television Name Role Phone ANNE HU CP Unavailable [...] Date End Date Status Dosage Vyvanse [facility] [address]-57 50 MG Orally Once a day. Anne-Marie to sign for Zachery Dec 30, 2014 1 capsule in the morning Results No Known Results Summary Purpose eClinicalWorks Submission
--- OUTSIDE RECORDS SUMMARY | 2016-10-11 18:34 | XMS REPORT ---
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
--- OUTSIDE RECORDS SUMMARY | 2016-10-11 18:35 | XMS REPORT ---
Author Author MELISSA FERNANDEZ [facility] Address [address] [place] [address] Care Team Providers Care Bending Roll Operator Name Role Phone MELISSA FERNANDEZ Unavailable PROBLEMS Type Condition ICD9-CM Code [id number] Code Onset Dates Condition Status SNOMED Code Problem Attention deficit hyperactivity disorder (ADHD), predominantly inattentive type F90.0 Active 66036270 Problem Anxiety F41.9 Active 71181060 Problem Mood disorder F39 Active 20186976 Problem Noncompliance w/medication treatment due to intermit use of medication Z91.14 Active 136478593 Problem Noncompliance of patient with dietary regimen Z91.11 Active 271807843 Problem Generalized anxiety disorder F41.1 Active 82194736 Problem Attention deficit hyperactivity disorder, combined type F90.2 Active 22514720 Problem jail 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.899 Active 567335027 Problem Diabetes type 2, uncontrolled E11.65 Active 665055051 Problem Major depression, chronic F32.9 Active 118581156 Problem Recurrent major depressive disorder, in partial remission F33.41 Active 99694211 ALLERGIES Unknown Allergies SOCIAL HISTORY No smoking Hx information available PLAN OF CARE VITAL SIGNS MEDICATIONS Unknown Medications RESULTS No Results PROCEDURES No Known procedures IMMUNIZATIONS No Known Immunizations
--- OUTSIDE RECORDS SUMMARY | 2016-10-11 18:35 | XMS REPORT ---
Author MELISSA Junior Organization eClinicalWorks Address Unknown Phone Unavailable Care Team Providers Care Relaster Name Role Phone MELISSA FERNANDEZ CP Unavailable [...] Active Problem Mood disorder F39 Active Problem snf 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.899 Active Problem Diabetes type 2, uncontrolled E11.65 Active Medications No Known Medications Results No Known Results Summary Purpose eClinicalWorks Submission
--- OUTSIDE RECORDS SUMMARY | 2016-10-11 18:35 | XMS REPORT ---
Author Author ANNE HU [facility] eClinicalWorks Address Unknown Phone Unavailable Care Team Providers Care Health Information Coder Name Role Phone ANNE HU CP Unavailable Allergies, Adverse Reactions, Alerts Substance [...] Problem Generalized anxiety disorder 300.02 Active Assessment Major depression F32.9 Active Assessment Generalized anxiety disorder F41.1 Active Assessment Attention deficit hyperactivity disorder, combined type F90.2 Active Problem Other convulsions 780.39 Active Medications Medication Code System Code Instructions Start Date End Date Status Dosage Victoza [facility] 23829622366 18 MG/3ML INJECT 1.8 MG SUBCUTANEOUSLY DAILY OneTouch Delica Lancets 33G [facility] 14839490196 33 USE ONE LANCET TO TEST TWO TIMES A DAY Benicar HCT [facility] [address]-86 40-25 MG Orally Once a day June 15, 2014 1 tablet Potassium Chloride Nessa ER [facility] 52434873808 10 MEQ TAKE ONE TABLET BY MOUTH ONCE DAILY Atorvastatin Calcium [facility] [address]-33 10 MG Orally Once a day 1 tablet Keppra [facility] [address]-79 750 MG 2 times a day Apr 14, 2014 1 tablet Aspirin [facility] [address]-13 325 mg June 18, 2013 take 1 tablet ( 325 mg) by oral route once daily Lexapro [facility] 55400624163 20 MG Orally Once a day 1 tablet Vicoprofen [facility] [address]-78 7.5-200 MG Orally every 6 hrs as needed for pain (DO NOT EXCEED 5 TABS/24HRS). July 24, 2014 1 tablet as needed Clonazepam [facility] 85846118247 1 MG TAKE ONE TABLET BY MOUTH AT BEDTIME NEEDED Vyvanse [facility] [address]-62 50 MG Orally Once a day Dec 30, 2014 1 capsule in the morning Metformin HCl [facility] [address]-35 1000 MG Twice a day TAKE ONE TABLET Alprazolam [facility] 76249166748 1 MG TAKE ONE TABLET BY MOUTH TWICE DAILY NEEDED Levemir FlexTouch [facility] 98912450387 100 UNIT/ML INJECT 60 UNITS SUBCUTANEOUSLY DAILY (MUST HAVE DM FOLLOW-UP APPOINTMENT FOR REFILLS!!!) OneTouch Ultra Test [facility] 60871528594 USE ONE STRIP TO TEST TWICE A DAY Amlodipine Besylate [facility] 81334559520 10 MG TAKE ONE TABLET BY MOUTH DAILY Procedures Procedure Coding System Code Date Office Visit, Est Pt., Level 3 CPT-4 12141 Dec 30, 2014 [facility] VISIT ESTABLISHED PATIENT CPT-4 G0467 Dec 30, 2014 Vital Signs Date/Time: Dec 30, 2014 Cardiac Monitoring Heart Rate 104 bpm Weight 272.0 lbs Height 77 in BMI 32.25 Index Blood Pressure Diastolic 90 mmHg Blood Pressure Systolic 160 mmHg Results No Known Results Summary Purpose eClinicalWorks Submission
--- OUTSIDE RECORDS SUMMARY | 2016-10-11 18:35 | XMS REPORT ---
Author Author ANNE HU Organization eClinicalWorks Address Unknown Phone Unavailable Care Team Providers Care Heel Sorter Name Role Phone ANNE HU CP Unavailable [...] Start Date End Date Status Dosage Alprazolam [facility] [address]-80 1 MG TAKE ONE TABLET BY MOUTH TWICE DAILY NEEDED Clonazepam [facility] [address]-64 1 MG TAKE ONE TABLET BY MOUTH AT BEDTIME NEEDED Results No Known Results Summary Purpose eClinicalWorks Submission
--- OUTSIDE RECORDS SUMMARY | 2016-10-11 18:35 | XMS REPORT ---
Author MELISSA Junior Organization eClinicalWorks Address Unknown Phone Unavailable Care Team Providers Care Tool And Die Repair Name Role Phone MELISSA FERNANDEZ CP Unavailable [...] Instructions Start Date End Date Status Dosage Benicar HCT [facility] [address]-64 40-25 MG Orally Once a day June 15, 2014 1 tablet Results No Known Results Summary Purpose eClinicalWorks Submission
--- OUTSIDE RECORDS SUMMARY | 2016-10-11 18:35 | XMS REPORT ---
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 [address]-54 8 MG Orally 3 times a day May 31, [address] [facility] 25539620310 10 MG TAKE ONE TABLET BY MOUTH DAILY Metformin HCl [facility] [address]-57 1000 MG Twice a day TAKE ONE TABLET Lantus [facility] [address]-38 100 UNIT/ML Subcutaneous Once a day [address] [facility] [address]-36 50 mg TAKE ONE CAPSULE BY MOUTH ONCE DAILY IN THE MORNING Victoza [facility] 30283443367 18 MG/3ML INJECT 1.8 MG SUBCUTANEOUSLY DAILY Potassium Chloride Nessa ER [facility] 13403031959 10 MEQ TAKE ONE TABLET BY MOUTH ONCE DAILY Valium [facility] [address]-80 5 mg Orally as needed Twice a day Apr 21, 2015 1 tablet as needed OneTouch Delica Lancets 33G [facility] 65020909023 33 USE ONE LANCET TO TEST TWO TIMES A DAY Aspirin [facility] [address]-37 325 mg June 18, 2013 take 1 tablet ( 325 mg) by oral route once daily Benicar HCT [facility] 79764706239 40-25 MG Orally Once a day [address] [facility] [address]-81 7.5-200 MG Orally every 6 hrs as needed for pain (DO NOT EXCEED 5 TABS/24HRS, MUST LAST 30 DAYS). July 24, 2014 1 tablet as needed Lexapro [facility] [address]-00 20 mg Orally Once a day May 31, [address] [facility] 13554176880 10 MG TAKE ONE TABLET BY MOUTH ONCE DAILY Keppra [facility] [address]-03 750 MG 2 times a day Apr 14, [address] [facility] [address]-09 0.1 % Externally Twice a day September 16, 2015 1 application to affected area OneTouch Ultra Test [facility] 85590308711 USE ONE STRIP TO TEST TWICE A DAY. DX E11.65 Procedures Procedure Coding System Code Date Office Visit, Est Pt., Level 3 CPT-4 33509 October 14, 2015 [facility] VISIT ESTABLISHED PATIENT CPT-4 G0467 October 14, 2015 Vital Signs Date/Time: October 14, 2015 Cardiac Monitoring Heart Rate 96 bpm Weight 263.2 lbs Height 77 in BMI 31.21 Index Blood Pressure Diastolic 92 mmHg Blood Pressure Systolic 148 mmHg Results No Known Results Summary Purpose eClinicalWorks Submission
== END 2016-10-02 17:20 | disposition home or self-care (01) ==
LOC: EDUNIT# 13:53 → ER 13:55
DX: B19.20 Unspecified viral hepatitis C without hepatic coma (principal); F80.1 Expressive language disorder; G40.109 Localization-related (focal) (partial) symptomatic epilepsy and epileptic syndromes with simple partial seizures, not intractable, without status epilepticus; E11.9 Type 2 diabetes mellitus without complications; F41.9 Anxiety disorder, unspecified; F32.9 Major depressive disorder, single episode, unspecified; I10 Essential (primary) hypertension; F15.10 Other stimulant abuse, uncomplicated; F17.210 Nicotine dependence, cigarettes, uncomplicated; Z82.49 Family history of ischemic heart disease and other diseases of the circulatory system; Z86.73 Personal history of transient ischemic attack (TIA), and cerebral infarction without residual deficits; Z79.82 Long term (current) use of aspirin; Z79.84 Long term (current) use of oral hypoglycemic drugs; Z79.4 Long term (current) use of insulin
CPT/HCPCS: 36415; 70450; 71010; 80053; 80306; 80320; 81000; 82140; 82962; 83735; 84484; 85025; 85379; 85610; 85730; 93005; 93041; 96365; 96374; 96375

== ENCOUNTER 2016-10-02 22:42 | Emergency (ER) | payer MEDICARE, MEDICAID ==
[~2016-10-02] VITALS: Ht 198.1 cm; Wt 122.5 kg
--- NOTE | 2016-10-02 23:01 | ED Neurological Problem ---
General Chief Complaint: Neurological Problems Stated Complaint: SEIZURE Nursing Triage Note: BROUGHT IN BY [facility] FOR SEIZURE. SEEN EARLIER FOR EXPRESSIVE ASPHASIA Nursing Sepsis Screen: No Definite Risk Source: patient, family, EMS Exam Limitations: clinical condition History of Present Illness Time seen by provider: 22:54 Initial Comments Patient presented to ER by EMS after his called the ambulance stating that he had had 2 seizures while in his sleep and then wake up. When he was having difficulty expressing himself. He was seen earlier in the ER today for the same neurologic symptoms and was worked up extensively for a potential stroke but nothing was found. His UDS was positive for amphetamines. He states his last use was probably 2 days ago. He says he is out of all of his medicines for least a day or so for seizures. Allergies and Home Medications Allergies Coded Allergies: Althea Known Allergies (Verified Allergy, Unknown, 07/29/05) Home Medications Alprazolam 1 Mg Tab, 1-2 MG PO TID PRN for ANXIETY, (Reported) TAKES 1-2 (1MG) TABLETS NEEDED FOR ANXIETY Amlodipine Besylate 5 Mg Tab, 10 MG PO DAILY @ 1200 for 30 Days Prescribed by: FAUSTINO LARSON on 06/10/13 1435 Amphet Asp/Amphet/D-Amphet 20 Mg Tablet, 20 MG PO DAILY PRN for NERVOUSNESS for 0 Days Prescribed by: ALICJA QUINTANA on 10/01/13 0334 Aspirin 325 Mg Tablet.dr, 325 MG PO DAILY PRN for HEADACHE, (Reported) NEEDED FOR HEADACHE Atorvastatin Calcium 10 Mg Tablet, 10 MG PO DAILY for 30 Days Prescribed by: FAUSTINO LARSON on 06/10/13 1439 Citalopram Hydrobromide 10 Mg Tablet, 10 MG PO DAILY @ 1200, (Reported) Clonazepam 2 Mg Tablet, 2 MG PO HS, (Reported) Hydrocodone Bit/Ibuprofen 1 Each Tablet, 1 TAB PO Q6H PRN for PAIN, (Reported) NEEDED FOR PAIN 7.5-200MG TABLET Insulin Detemir 100 U/Ml Vial, 46 U SQ HS, (Reported) Levetiracetam 500 Mg Tab, 750 MG PO BID, #60 Ref 0 Prescribed by: SHANNAN DHILLON on 10/05/13 0956 Liraglutide 0.6 Mg/0.1 Ml Pen.injctr, 1.8 MG SQ DAILY @ 1200, (Reported) Metformin Hcl 1,000 Mg Tablet, 500 MG PO BID, (Reported) Olmesartn/Hydrochlorothiazide 1 Tab Tablet, 1 TAB PO DAILY @ 1200, (Reported) 40-25MG TABLET Potassium Chloride 10 Meq Capcr, 10 MEQ PO DAILY@0700 for 30 Days Prescribed by: FAUSTINO LARSON on 06/10/13 1435 Constitutional: No chills, No diaphoresis, No dizziness, No fever, No malaise, No weakness Eyes: Denies Blindness, Denies Blurred Vision Respiratory: No cough, No short of breath Cardiovascular: No chest pain, No palpitations, No syncope Gastrointestinal: No abdominal pain, No constipation, No diarrhea, No nausea, No vomiting Genitourinary: No discharge, No dysuria Musculoskeletal: No back pain, No joint pain Skin: No pruritus, No rash Psychiatric/Neurological: See HPI, Depressed, Cognitive Dysfunction, Denies Headache, Denies Numbness, [place] Seizures Past Voymqxd-Fsfehu-Imwrai Hx Patient Social History Alcohol Use: Denies Use Recreational Drug Use: No Smoking Status: Current Everyday Smoker Type Used: Cigarettes 2nd Hand Smoke Exposure: Yes Recent Foreign Travel: No Contact w/Someone Who Travel: No Recent Infectious Disease Expo: No Recent Hopitalizations: No Immunizations Up To Date Date of Pneumonia Vaccine: Jun 10, 2013 Date of Influenza Vaccine: Dec 02, 2013 Seasonal Allergies Seasonal Allergies: No Surgeries HX Surgeries: Yes (LIPOMA REMOVAL/LIVER BX) Respiratory Hx Respiratory Disorders: No Cardiovascular Hx Cardiac Disorders: Yes Cardiac Disorders: Hypertension Neurological Hx Neurological Disorders: Yes Genitourinary Hx Genitourinary Disorders: No Gastrointestinal Hx Gastrointestinal Disorders: No Musculoskeletal Hx Musculoskeletal Disorders: No Endocrine Hx Endocrine Disorders: Yes Endocrine Disorders: Diabetes, Insulin dep HEENT HX ENT Disorders: No Cancer Hx Cancer: No Psychosocial Hx Psychiatric Problems: Yes Behavioral Health Disorders: Anxiety, Depression Integumentary HX Skin/Integumentary Disorder: No Blood Transfusions Hx Blood Disorders: Yes (HEPATITIS C) Adverse Reaction to a Blood Tr: No Family Medical History Family Medial History: Family history: Cardiovascular disease 03 FATHER (MACKENZIE PARKINSONS SYNDROME) Family history: Hypertension 03 FATHER History of - disorder 03 MOTHER (DEPRESSION) 09 SISTER (MENTAL HEALTH ISSUES) Physical Exam Vital Signs Vital Sign - Last 12Hours 10/02/16 22:47 Temp 98.2 Pulse 91 Resp 11 B/P (MAP) 179/96 Pulse Ox 98 O2 Delivery Room Air Capillary Refill : Less Than 3 Seconds General Appearance: WD/WN, mild distress HEENT: PERRL/EOMI, normal ENT inspection, TMs normal, pharynx normal Neck: non-tender, supple, normal inspection Respiratory: lungs clear, normal breath sounds Cardiovascular: normal peripheral pulses, regular rate, rhythm, no edema Peripheral Pulses: 3+ Dorsalis Pedis (R), 3+ Left Dors-Pedis (L), 3+ Radial Pulses (R), 3+ Radial Pulses (L) Gastrointestinal: normal bowel sounds, non tender, soft Extremities: normal range of motion, non-tender, normal inspection, no pedal edema, no calf tenderness, normal capillary refill 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5 13.3-17.7 G/DL Hematocrit 42 40-54 % Mean Corpuscular Volume 86 80-99 FL Mean Corpuscular Hemoglobin 30 25-34 PG Mean Corpuscular Hemoglobin Concent 35 32-36 G/DL Red Cell Distribution Width 13.1 10.0-14.5 % Platelet Count 280 130-400 10^3/uL Mean Platelet Volume 9.8 7.4-10.4 FL Neutrophils (%) (Auto) 59 42-75 % Lymphocytes (%) (Auto) 31 12-44 % Monocytes (%) (Auto) 8 0-12 % Eosinophils (%) (Auto) 2 0-10 % Basophils (%) (Auto) 0 0-10 % Neutrophils # (Auto) 5.3 1.8-7.8 X 10^3 Lymphocytes # (Auto) 2.7 1.0-4.0 X 10^3 Monocytes # (Auto) 0.7 0.0-1.0 X 10^3 Eosinophils # (Auto) 0.2 0.0-0.3 10^3/uL Basophils # (Auto) 0.0 0.0-0.1 10^3/uL Prothrombin Time 11.8 L 12.2-14.7 SEC INR Comment 0.9 0.8-1.4 Activated Partial Thromboplast Time 26 24-35 SEC D-Dimer 0.29 0.00-0.49 UG/ML Sodium Level 136 135-145 MMOL/L Potassium Level 3.6 3.6-5.0 MMOL/L Chloride Level 106 98-107 MMOL/L Carbon Dioxide Level 22 21-32 MMOL/L Anion Gap 8 5-14 MMOL/L Blood Urea Nitrogen 14 7-18 MG/DL Creatinine 0.96 0.60-1.30 MG/DL Estimat Glomerular Filtration Rate > 60 BUN/Creatinine Ratio 15 Glucose Level 344 H 70-105 MG/DL Calcium Level 8.2 L 8.5-10.1 MG/DL Total Bilirubin 0.2 0.1-1.0 MG/DL Aspartate Amino Transf (AST/SGOT) 18 5-34 U/L Alanine Aminotransferase (ALT/SGPT) 30 0-55 U/L Alkaline Phosphatase 89 40-136 U/L Troponin I < 0.30 <0.30 NG/ML Total Protein 5.6 L 6.4-8.2 GM/DL Albumin 3.1 L 3.2-4.5 GM/DL Glucometer 308 H 70-110 MG/DL My Orders Orders - ARASH AHN Cbc With Automated Diff (10/02/16 23:02) Protime With Inr (10/02/16 23:02) Partial Thromboplastin Time (10/02/16 23:02) Comprehensive Metabolic Panel (10/02/16 23:02) Fibrin Degradation Products (10/02/16 23:02) Troponin I (10/02/16 23:02) Chest 1 View, Ap/Pa Only (10/02/16 23:02) Ekg Tracing (10/02/16 23:02) Accucheck Stat ONCE (10/02/16 23:02) Saline Lock/Iv-Start (10/02/16 23:02) Vital Signs-Stroke Q1H (10/02/16 23:02) O2 (10/02/16 23:02) Intake & Output 06,14,22 (10/02/16 23:02) Monitor-Rhythm Ecg Trace Only (10/02/16 23:02) Dysphagia Screening Tool (10/02/16 23:02) Lorazepam Injection (Ativan Injection) (10/02/16 23:15) Medications Given in ED Current Medications Medications Dose Ordered Sig/Nacho Route Start Time Stop Time Status Last Admin Dose Admin Lorazepam 2 mg ONCE ONCE IVP 10/02/16 23:15 10/02/16 23:16 DC 10/02/16 23:08 2 MG Vital Signs/I&O Vital Sign - Last 12Hours 10/02/16 10/02/16 10/02/16 22:47 23:11 23:57 Temp 98.2 98.2 Pulse 91 89 Resp 11 11 B/P (MAP) 179/96 Pulse Ox 98 95 95 O2 Delivery Room Air Room Air Room Air Blood Pressure Mean: 123 Progress Note : Time: 23:41 Progress Note After speaking to the it has become apparent that this patient has a history of seizure disorder that has been treated with Keppra 1 g twice a day and according to the patient he may not be fastidious about taking his Keppra and he did have a democrat with some Adderall/amphetamines about 2 days ago. If he is withdrawing from amphetamines which were present in his urine this morning this could contribute to his seizure-like activity. That is why the called the ambulance because she saw him have two seizures which she estimated to be about a minute to minute and a half long. Patient did not vomit. There is no reason to reimage the gentlemen's head as he had a CT this morning. If there was stroke and 2 weeks of the same symptoms we should've been seen this morning. We discussed the use of amphetamines and other drugs such as alcohol can lower his seizure threshold and how important it is that he take his Keppra on time. It may also be reasonable that he follow up with his PCP to discuss altering the dosage. The stated while I was present that he was having a seizure but he was talking and responding throughout the "seizure". states she gave him his Keppra tonight and he has plenty of Keppra at home. He was given 2 mg IV Ativan in the ER tonight which should cover him for most of the night. She was given intensive instructions on how to take care of someone having a seizure. ECG Initial ECG Impression Date: Oct 02, 2016 Initial ECG Impression Time: 23:23 Initial ECG Rate: 91 Initial ECG Rhythm: Normal Sinus Initial ECG Intervals: Normal Initial ECG Impression: Nonspecific Changes Comment PVCs without ST aberrations Diagnostic Imaging Diagonstic Imaging: Xray Plain Films/CT/US/NM/MRI: chest Comments No acute cardiopulmonary process noted. Reviewed: Reviewed by Me Departure Impression Impression: Primary Impression: Convulsions Qualified Codes: R56.9 - Unspecified convulsions Disposition: HOME, SELF-CARE Condition: Stable Departure-Patient Inst. Decision time for Depature: 23:44 Referrals: [facility] (PCP/Family) Primary Care Physician Patient Instructions: Seizures, Adult (DC) Add. Discharge Instructions: Follow-up with your primary care physician this week. If the patient has a seizure is important that you make sure he is safe by lowering him to a safe level if he is standing or sitting up. He should not place anything in his mouth nor attempt to stop her restrain him from seizing. Time how long the seizure lasts. Make sure he is safe and if he has any nausea and vomiting make sure he is laying on one of his sides so that the vomiting exit his mouth. All discharge instructions reviewed with patient and/or family. Voiced understanding. Copy Copies To 1: MACKENZIE GARCIA TITUS J Oct 02, 2016 23:01
[2016-10-02 23:14] LABS: BASOPHILS % (AUTO) 0 % (0-10); EOSINOPHILS # (AUTO) 0.2 10^3/uL (0.0-0.3); EOSINOPHILS % (AUTO) 2 % (0-10); LYMPHOCYTES # (AUTO) 2.7 X 10^3 (1.0-4.0); LYMPHOCYTES % (AUTO) 31 % (12-44); MEAN CORPUSCULAR HEMOGLOBIN 30 PG (25-34); MEAN CORPUSCULAR HGB CONC 35 G/DL (32-36); MEAN CORPUSCULAR VOLUME 86 FL (80-99); MEAN PLATELET VOLUME 9.8 FL (7.4-10.4); MONOCYTES # (AUTO) 0.7 X 10^3 (0.0-1.0); MONOCYTES % (AUTO) 8 % (0-12); NEUTROPHILS # (AUTO) 5.3 X 10^3 (1.8-7.8); NEUTROPHILS % (AUTO) 59 % (42-75); PLATELET COUNT 280 10^3/uL (130-400); RED BLOOD COUNT 4.86 10^6/uL (4.35-5.85); RED CELL DISTRIBUTION WIDTH 13.1 % (10.0-14.5); WHITE BLOOD COUNT 8.9 10^3/uL (4.3-11.0)
[2016-10-02] MEDS ORDERED: LORazepam INJ 2 MG/ML (ATIVAN) VIAL IVP ONE (23:15)
[2016-10-02 23:24] LABS: INR 0.9 (0.8-1.4); PROTHROMBIN TIME PATIENT 11.8 SEC (12.2-14.7)
[2016-10-02 23:32] LABS: ALANINE AMINOTRANSFERASE 30 U/L (0-55); ALBUMIN 3.1 GM/DL (3.2-4.5); ANION GAP 8 MMOL/L (5-14); ASPARTATE AMINO TRANSFERASE 18 U/L (5-34); BILIRUBIN,TOTAL 0.2 MG/DL (0.1-1.0); BLOOD UREA NITROGEN 14 MG/DL (7-18); BUN/CREATININE RATIO 15; CALCIUM 8.2 MG/DL (8.5-10.1); CARBON DIOXIDE 22 MMOL/L (21-32); CHLORIDE 106 MMOL/L (98-107); CREATININE SERUM 0.96 MG/DL (0.60-1.30); GFR ESTIMATED > 60; GLUCOSE 344 MG/DL (70-105); POTASSIUM 3.6 MMOL/L (3.6-5.0); SODIUM 136 MMOL/L (135-145); TOTAL PROTEIN 5.6 GM/DL (6.4-8.2)
[2016-10-02 23:38] LABS: TROPONIN I < 0.30 NG/ML (<0.30)
[2016-10-02 23:57] VITALS: BP 148/105
--- NOTE | 2016-10-03 06:58 | Diagnostic Imaging Report ---
INDICATION: Seizure. TECHNIQUE: Single view chest 11:08 PM. CORRELATION STUDY: 10/02/2016 FINDINGS: Heart size is borderline. Mediastinum is mildly prominent. Vasculature is within normal limits. The lungs are clear with no consolidating infiltrate. There is no significant effusion or pneumothorax. IMPRESSION: 1. Borderline heart size without failure otherwise acute findings of the chest. Dictated by: Dictated on workstation # [id number]
--- OUTSIDE RECORDS SUMMARY | 2016-10-11 19:14 | XMS REPORT | Clinical Summary ---
Author Author [facility] Organization [facility] Address Unknown Phone Unavailable Care Team Providers Care Automation Control Integrator Name Role Phone PCP Unavailable Source Comments Some departments are not documenting in the electronic medical record. If you do not see the information that you expected, contact Release of Information in the Health Information Management department at [phone] for further assistance in locating additional records.[facility] Allergies Not on File Current Medications [...]
== END 2016-10-02 23:57 | disposition home or self-care (01) ==
LOC: EDUNIT# 22:42 → ER 22:43
DX: R56.9 Unspecified convulsions (principal); I10 Essential (primary) hypertension; F41.9 Anxiety disorder, unspecified; F32.9 Major depressive disorder, single episode, unspecified; B19.20 Unspecified viral hepatitis C without hepatic coma; E11.9 Type 2 diabetes mellitus without complications; F15.10 Other stimulant abuse, uncomplicated; F17.210 Nicotine dependence, cigarettes, uncomplicated; Z82.49 Family history of ischemic heart disease and other diseases of the circulatory system; Z79.82 Long term (current) use of aspirin; Z79.84 Long term (current) use of oral hypoglycemic drugs; Z79.4 Long term (current) use of insulin
CPT/HCPCS: 36415; 71010; 80053; 82962; 84484; 85025; 85379; 85610; 85730; 93005; 93041; 96374

== ENCOUNTER 2017-12-18 21:52 | Emergency (ER) | payer MEDICARE, MEDICAID ==
[~2017-12-18] VITALS: Ht 198.1 cm; Wt 122.5 kg
[2017-12-18] MEDS ORDERED: TETANUS,DIPTH,PERTUSS P/F (BOOSTRIX) 0.5 ML VIAL IM ONE (22:15)
[2017-12-18] MEDS ORDERED: LIDOCAINE 1% INJ 20 ML 20 ML VIAL INJ ONE (22:15)
--- NOTE | 2017-12-18 22:43 | ED Integumentary General ---
General Chief Complaint: Laceration Stated Complaint: CUT HAND BLEEDING Nursing Triage Note: WAS CLEANING WIRES AND PUNCTURE HAND WITH KNIFE- DID SEE BLOOD SQUIRT. WRAPPED IN HANDERKIEF AND PRESSURE APPLIED BLEEDING CONTROLLED Source: patient Exam Limitations: no limitations History of Present Illness Date Seen by Provider: Dec 18, 2017 Time Seen by Provider: 22:10 Initial Comments Patient is a 62-year-old male who presents to the emergency room with complaints of a laceration to his left hand. He reports that he was cleaning wires with a knife when it slipped and punctured his left hand. He reports seeing blood squirted initially and wrapped it in a handkerchief and apply pressure on the way to the emergency room. He has a 2 cm laceration to the palmar surface of the left hand just below the second finger DIP joint. Full range of motion with a hand and no tendon injury noted. Timing/Duration: just prior to arrival Location: hands (left hand) Associated Symptoms: other (laceration) Allergies and Home Medications Allergies Coded Allergies: NKANo Known Allergies (Verified Allergy, Unknown, 12/18/17) Home Medications Alprazolam 1 Mg Tab, 1-2 MG PO TID PRN for ANXIETY, (Reported) TAKES 1-2 (1MG) TABLETS NEEDED FOR ANXIETY Amlodipine Besylate 5 Mg Tab, 10 MG PO DAILY @ 1200 Prescribed by: FAUSTINO LARSON on 06/10/13 1435 Amphet Asp/Amphet/D-Amphet 20 Mg Tablet, 20 MG PO DAILY PRN for NERVOUSNESS Prescribed by: ALICJA QUINTANA on 10/01/13 0334 Aspirin 325 Mg Tablet.dr, 325 MG PO DAILY PRN for HEADACHE, (Reported) NEEDED FOR HEADACHE Atorvastatin Calcium 10 Mg Tablet, 10 MG PO DAILY Prescribed by: FAUSTINO LARSON on 06/10/13 1439 Cephalexin 500 Mg Capsule, 500 MG PO BID Prescribed by: JENNI WILLINGHAM on 12/18/17 2253 Citalopram Hydrobromide 10 Mg Tablet, 10 MG PO DAILY @ 1200, (Reported) Clonazepam 2 Mg Tablet, 2 MG PO HS, (Reported) Hydrocodone Bit/Ibuprofen 1 Each Tablet, 1 TAB PO Q6H PRN for PAIN, (Reported) NEEDED FOR PAIN 7.5-200MG TABLET Insulin Detemir 100 U/Ml Vial, 46 U SQ HS, (Reported) Levetiracetam 500 Mg Tab, 750 MG PO BID Prescribed by: SHANNAN DHILLON on 10/05/13 0956 Liraglutide 0.6 Mg/0.1 Ml Pen.injctr, 1.8 MG SQ DAILY @ 1200, (Reported) Metformin Hcl 1,000 Mg Tablet, 500 MG PO BID, (Reported) Olmesartn/Hydrochlorothiazide 1 Tab Tablet, 1 TAB PO DAILY @ 1200, (Reported) 40-25MG TABLET Potassium Chloride 10 Meq Capcr, 10 MEQ PO DAILY@0700 Prescribed by: FAUSTINO LARSON on 06/10/13 1435 Patient Home Medication List Home Medication List Reviewed: Yes Review of Systems Review of Systems Constitutional: see HPI; No chills, No fever Skin: see HPI, other (laceration) Past Szrpras-Pxbhal-Wrrqbz Hx Past Med/Social Hx: Reviewed Nursing Past Med/Soc Hx Patient Social History Alcohol Use: Denies Use Recreational Drug Use: Yes Drug of Choice: METH Type Used: Cigarettes 2nd Hand Smoke Exposure: Yes Recent Foreign Travel: No Contact w/Someone Who Travel: No Recent Infectious Disease Expo: Yes Recent Hopitalizations: No Physical Abuse: No Sexual Abuse: No Mistreated: No Fear: No Immunizations Up To Date Tetanus Booster (TDap): More than 5yrs Date of Pneumonia Vaccine: Jun 10, 2013 Date of Influenza Vaccine: Dec 02, 2013 Seasonal Allergies Seasonal Allergies: No Past Medical History Surgeries: Yes (LIPOMA REMOVAL/LIVER BX) Respiratory: No Cardiac: Yes Hypertension Neurological: Yes Seizure Disorder, Stroke Genitourinary: No Gastrointestinal: No Hepatitis Musculoskeletal: No Endocrine: Yes Diabetes, Insulin dep HEENT: No Cancer: No Psychosocial: Yes Anxiety, Depression Integumentary: No Blood Disorders: Yes (HEPATITIS C) Adverse Reaction/Blood Tranf: No Family Medical History Reviewed Nursing Family Hx Family history: Cardiovascular disease 03 FATHER (MACKENZIE PARKINSONS SYNDROME) Family history: Hypertension 03 FATHER History of - disorder 03 MOTHER (DEPRESSION) 09 SISTER (MENTAL HEALTH ISSUES) Physical Exam Vital Signs Vital Signs - First Documented 12/18/17 21:59 Temp 98.0 Pulse 68 Resp 16 B/P (MAP) 162/80 (107) Pulse Ox 99 Capillary Refill : Less Than 3 Seconds General Appearance: WD/WN, no apparent distress Neck: non-tender, full range of motion, supple, normal inspection Cardiovascular: normal peripheral pulses, regular rate, rhythm, no edema, no gallop, no JVD, no murmur Respiratory: chest non-tender, lungs clear, normal breath sounds, no respiratory distress, no accessory muscle use Neurologic/Psychiatric: alert, normal mood/affect, oriented x 3 Skin: normal color, warm/dry Skin Problem Location: upper extremities (laceration to palmar surface of left hand see images) Procedures/Interventions Wound Location: Upper Extremities (left hand) Other Wound Location Left hand see images Wound's Depth, Shape: superficial Irrigated w/ Saline (ccs): 300 Anesthesia: 1% Lidocaine Suture: Prolene Suture Size: 5-0 Number of Sutures: 3 Progress The wound was cleaned and irrigated with normal saline. The area was anesthetized with 2.5 ml of lidocaine 1%. The wound was closed with 3 simple interrupted sutures of 4-0 Prolene. Dressing was applied. Progress/Results/Core Measures Results/Orders My Orders Orders - BERNOT,JENNI Dipht,Pertuss(Acell),Tet Adult (Boostrix (12/18/17 22:15) Lidocaine 1% Inj 20 Ml (Xylocaine 1% Inj (12/18/17 22:15) Cephalexin Capsule (Keflex Capsule) (12/18/17 23:00) Medications Given in ED Vital Signs/I&O 12/18/17 12/18/17 21:59 23:10 Temp 98.0 98.0 Pulse 68 71 Resp 16 16 B/P (MAP) 162/80 (107) 136/71 Pulse Ox 99 99 Progress Progress Note : Time: 22:40 Progress Note I have seen and evaluated the patient. I have closed the wound with sutures. He tolerated the procedure well. I will be prescribing Keflex due to nature of wound. He was updated on tetanus. He agrees with plan of care. Return precautions were given. Departure Impression Primary Impression: Laceration Disposition: 01 HOME, SELF-CARE Condition: Stable/Unchanged Departure-Patient Inst. Decision time for Depature: 22:43 Referrals: [facility] (PCP/Family) Primary Care Physician Patient Instructions: Laceration Repair With Stitches (DC) Add. Discharge Instructions: Take medications as directed. Watch for signs of infection such as increased redness, pain, swelling or any other concerns as needed. Return back to the emergency room in 7 days to have the sutures removed. Follow-up with primary care as needed. All discharge instructions reviewed with patient and/or family. Voiced understanding. Scripts Cephalexin (Keflex) 500 Mg Capsule 500 MG PO BID for 7 Days, #14 CAP Prov: JENNI WILLINGHAM 12/18/17 Images Extremities-Upper 1 - Laceration JENNI WILLINGHAM Dec 18, 2017 22:43
[2017-12-18] MEDS ORDERED: CEPH-507 PO (22:53)
[2017-12-18] MEDS ORDERED: CEPHALEXIN 250 MG (KEFLEX) CAP PO ONE (23:00)
[2017-12-18 23:10] VITALS: BP 136/71
== END 2017-12-18 23:10 | disposition home or self-care (01) ==
LOC: EDUNIT# 21:52 → ER 21:53
DX: S61.412A Laceration without foreign body of left hand, initial encounter (principal); I10 Essential (primary) hypertension; G40.909 Epilepsy, unspecified, not intractable, without status epilepticus; E11.9 Type 2 diabetes mellitus without complications; F41.9 Anxiety disorder, unspecified; F32.9 Major depressive disorder, single episode, unspecified; B19.20 Unspecified viral hepatitis C without hepatic coma; F15.10 Other stimulant abuse, uncomplicated; Z77.22 Contact with and (suspected) exposure to environmental tobacco smoke (acute) (chronic); Z86.73 Personal history of transient ischemic attack (TIA), and cerebral infarction without residual deficits; Z82.49 Family history of ischemic heart disease and other diseases of the circulatory system; Z23 Encounter for immunization; Z79.82 Long term (current) use of aspirin; Z79.4 Long term (current) use of insulin; W26.0XXA Contact with knife, initial encounter
CPT/HCPCS: 12041; 90715

== ENCOUNTER → 2018-01-01 | Outpatient (CLI) | payer MEDICARE, MEDICAID ==
[~2018-01-01] MED LIST changes: +CEPH-507 PO
== END ==
LOC: RAD 12:19
PROVIDERS: ATTEND Nurse Practitioner
DX: S62.92XA Unspecified fracture of left hand, initial encounter for closed fracture (principal); Z53.1 Procedure and treatment not carried out because of patient's decision for reasons of belief and group pressure; X58.XXXA Exposure to other specified factors, initial encounter

== ENCOUNTER 2018-02-25 23:27 | Inpatient (IN) | payer MEDICARE, MEDICAID ==
[~2018-02-25] VITALS: Ht 188 cm; Wt 117.5 kg
[2018-02-25] MEDS: SODIUM BICARB 8.4% 50 MEQ/50 ML (ABBOTT) SYR ONE (00:11)
[2018-02-25] MEDS ORDERED: NS IV 1000 ML 1,000 ML IV ONE (23:32)
--- OUTSIDE RECORDS SUMMARY | 2018-02-25 23:32 | XMS REPORT | Clinical Summary ---
Author Author [facility] Organization [facility] Address Unknown Phone Unavailable Care Team Providers Care Hospital Product Specialist Name Role Phone Self, Referral PCP Unavailable Source Comments Some departments are not documenting in the electronic medical record. If you do not see the information that you expected, contact Release of Information in the Health Information Management department at [phone] for further assistance in locating additional records.[facility] Allergies Not on File Medications Not on file Active Problems Not on file Social History Date Tobacco Use Types Packs/Day Years Used Never Assessed Sex Assigned at Date Recorded Not on file Industry Job Start Date Occupation Not on file Not on file Not on file Travel End Travel History Travel Start No recent travel history available. Last Filed Vital Signs Not on file Plan of Treatment Health Maintenance Due Date Last Done Comments HEPATITIS C SCREENING 1957 PHYSICAL (COMPREHENSIVE) 1964 EXAM HIV SCREENING 1972 DTAP/TDAP VACCINES (1 - 11/06/1975 Tdap) CERVICAL CANCER SCREENING 11/06/1987 BREAST CANCER SCREENING 1997 COLORECTAL CANCER 11/06/2007 SCREENING SHINGLES RECOMBINANT 11/06/2007 VACCINE (1 of 2) INFLUENZA VACCINE 10/17/2017 Results Not on filefrom Last 3 Months
--- OUTSIDE RECORDS SUMMARY | 2018-02-25 23:33 | XMS REPORT ---
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 Active 871708360 Problem group home 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.4 Active 748205238 Problem Type 2 diabetes mellitus with diabetic nephropathy E11.21 Active 110785019 Problem Type 2 diabetes mellitus with hyperglycemia E11.65 Active 210994740 Problem Uncontrolled type 2 diabetes mellitus without complication, without long-term 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 E11.65 Active 355697605 Problem Diabetes type 2, uncontrolled E11.65 Active 717023824 Problem Noncompliance of patient with dietary regimen Z91.11 Active 678516172 Problem Mood disorder F39 Active 30206658 Problem Attention deficit hyperactivity disorder (ADHD), predominantly inattentive type F90.0 Active 40848102 Problem Major depression, chronic F32.9 Active 400162990 Problem Generalized anxiety disorder F41.1 Active 35213540 Problem Noncompliance w/medication treatment due to intermit use of medication Z91.14 Active 812237679 Problem Recurrent major depressive disorder, in partial remission F33.41 Active 18704140 Problem 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 Active 970697403 Problem Attention deficit hyperactivity disorder, combined type F90.2 Active 94939104 ALLERGIES No Information ENCOUNTERS Encounter Location Date Diagnosis [facility] [address] [facility] [id number] [address] Jan, [facility] [address] [address] Jan, [facility] [id number] [place] [address] 69134- 2518 Dec, Diabetes type 2, uncontrolled E11.65 [facility] [address] [place] [address] 33112- 4015 Dec, Diabetes type 2, uncontrolled E11.65 [facility] [id number] [place] [address] 21001- 1555 Dec, Cutaneous abscess of unspecified hand L02.519 and Cellulitis of unspecified part of limb L03.119 [facility] [id number] [place] [address] 10345 -2602 Dec, Acute pain of left wrist M25.532 and Closed fracture of left wrist, initial encounter S62.102A [facility] [id number] [place] [address] 62614- 3350 Dec, [facility] [id number] [place] [address] 85668- 5092 Dec, [facility] [id number] [place] [address] 76230- 0929 Oct, [facility] [id number] [place] [address] 22856- 8427 Oct, [facility] [id number] [place] [address] 78702- 7842 Aug, [facility] [address] [place] [address] 12420- 2914 July, Generalized anxiety disorder F41.1 ; Bipolar II disorder F31.81 ; Attention deficit hyperactivity disorder, combined type F90.2 ; Cannabis abuse F12.10 and Amphetamine and psychostimulant abuse, 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 [facility] [address] [address] 3834 Mar, Type 2 diabetes mellitus with diabetic nephropathy E11.21 [facility] [address] [address] 4751 Mar, Anxiety F41.9 ; Diabetes type 2, uncontrolled E11.65 and Tooth infection K04.7 [facility] [address] [address] 9464 Mar, Type 2 diabetes mellitus with diabetic nephropathy E11.21 [facility] [id number] [place] [address] 42554- 9340 Feb, [facility] [id number] [place] [address] 05921- 8547 Jan, Type 2 diabetes mellitus with diabetic nephropathy E11.21 [facility] [id number] [place] [address] 99596- 6758 Dec, Type 2 diabetes mellitus with diabetic nephropathy E11.21 [facility] [id number] [place] [address] 58484- 3282 Nov, Mood disorder F39 and Type 2 diabetes mellitus with hyperglycemia E11.65 [facility] [address] [place] [address] 36850- 1866 Oct, Mood disorder F39 and Type 2 diabetes mellitus with hyperglycemia E11.65 [facility] [address] [place] [address] 33964- 1354 Sep, Type 2 diabetes mellitus with diabetic nephropathy E11.21 and Seizures R56.9 [facility] [address] [address]- 4093 Sep, [facility] [address] [address] 9414 Sep, [facility] [address] [address]- 3674 Sep, [facility] [address] [address]- 3656 July, [facility] [address] [address]- 1747 Jun, [facility] [address] [address]- 1755 Jun, [facility] [address] [place] [address] 39845- 3151 Jun, Uncontrolled type 2 diabetes mellitus without complication, without long-term 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 E11.65 [facility] [address] [place] [address] 74298- 8110 May, [facility] [address] [place] [address] 51717- 5693 May, [facility] [address] [place] [address] 34948- 9692 Mar, Generalized anxiety disorder F41.1 ; Major depression F32.9 ; Attention deficit hyperactivity disorder, combined type F90.2 ; Amphetamine and psychostimulant abuse, 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 and Cannabis abuse F12.10 [facility] [address] [place] [address] 61390- 3752 Mar, Type 2 diabetes mellitus with diabetic nephropathy E11.21 ; Type 2 diabetes mellitus with hyperglycemia E11.65 and 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 [facility] [address] [place] [address] 18545- 0088 Feb, [facility] [address] [address]- 3406 Jan, [facility] [address] [place] [address] 41402- 8901 Dec, [facility] [address] [place] [address] 70115- 5299 Dec, Generalized anxiety disorder F41.1 ; Attention deficit hyperactivity disorder, combined type F90.2 and Recurrent major depressive disorder, in partial remission F33.41 [facility] [address] [address]- 0278 Dec, Diabetes type 2, uncontrolled E11.65 [facility] [address] [address]- 2140 Dec, [facility] [address] [address]- 5021 Dec, [facility] [address] [address] Dec, [facility] [address] [address]- 1171 Nov, [facility] [address] [address]- 4535 Oct, Noncompliance w/medication treatment due to intermit use of medication Z91.14 [facility] [address] [address]- 4930 Oct, Noncompliance w/medication treatment due to intermit use of medication Z91.14 [facility] [address] [address]- 5158 Oct, [facility] [address] [address]- 1889 Oct, [facility] [address] [address]- 8102 Oct, [facility] [address] [address]- 0810 Sep, Diabetic polyneuropathy associated with type 2 diabetes mellitus E11.42 [facility] [address] [address]- 5855 Sep, [facility] [id number] [address]- 0102 Aug, Diabetes type 2, uncontrolled E11.65 and Diabetic polyneuropathy associated with type 2 diabetes mellitus E11.42 [facility] [address] [address]- 3001 Aug, [facility] [address] [address]- 8750 Aug, [facility] [address] [place] [address] 28913- 7174 July, Generalized anxiety disorder F41.1 and Major depression F32.9 [facility] [address] [place] [address] 59762- 4054 July, [facility] [address] [place] [address] 99471- 3569 Jun, [facility] [address] [place] [address] 61151- 4399 May, group home 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.899 ; Diabetes type 2, uncontrolled E11.65 ; Gastroenteritis K52.9 ; Malaise R53.81 and Dysrhythmia I49.9 [facility] [address] [place] [address] 41968- 4209 May, [facility] [address] [place] [address] 77197- 2807 May, [facility] [address] [place] [address] 22100- 4375 Apr, [facility] [address] [place] [address] 02415- 0518 Apr, Type 2 diabetes mellitus with hyperglycemia E11.65 [facility] [address] [place] [address] 58663- 5116 Apr, [facility] [address] [place] [address] 82641- 7073 Apr, 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 ; Generalized anxiety disorder F41.1 ; Attention deficit hyperactivity disorder, combined type F90.2 and Major depression F32.9 [facility] [address] [address]- 2635 Mar, [facility] [id number] [place] [address] 99258- 6190 Mar, [facility] [address] [facility] [id number] [address]- 6559 Mar, [facility] [address] [facility] [id number] [place] [address]- 2977 Mar, [facility] [address] [facility] [id number] [place] [address]- 9127 Mar, [facility] [address] [place] [address], [place] [address]- 7629 Feb, [facility] [address] [facility] [id number] [place] [address]- 5442 Feb, [facility] [address] [place] [address], [place] [address]- 7341 Feb, [facility] [address] [address]- 3476 Jan, Diabetes type 2, uncontrolled E11.65 [facility] [address] [address]- 2143 Jan, [facility] [address] [address]- 7502 Jan, [facility] [address] [address]- 4247 Jan, [facility] [address] [address]- 0747 Dec, [facility] [address] [address]- 6397 Dec, [facility] [id number] [address]- 2564 Dec, [facility] [address] [address]- 0622 Dec, Type 2 diabetes mellitus with diabetic nephropathy E11.21 [facility] [address] [address]- 3187 Dec, [facility] [address] [address]- 6517 Dec, [facility] [address] [place] [address] 99384- 8246 Dec, [facility] [address] [place] [address] 59404- 9521 Dec, Attention deficit hyperactivity disorder, combined type F90.2 ; Generalized anxiety disorder F41.1 and Major depression F32.9 [facility] [address] [place] [address] 194643- 3393 Dec, Type 2 diabetes mellitus with diabetic nephropathy E11.21 and Type 2 diabetes mellitus with hyperglycemia E11.65 [facility] [address] [place] [address] 27644941- 7162 30 Nov, 2014 [facility] [address] [place] [address] 00709- 0127 Nov, [facility] [address] [place] [address] 58018- 0667 16 Nov, 2014 [facility] [address] [place] [address] 20972- 6582 Oct, [facility] [address] [place] [address] 33285- 3143 Oct, [facility] [address] [place] [address] 35294- 2106 Oct, [facility] [address] [place] [address] 70521- 7521 Sep, Hepatitis C 070.70 and URI, acute 465.9 [facility] [address] [place] [address] 26198- 8570 Sep, [facility] [address] [address]- 8106 Sep, [facility] [address] [place] [address] 47914- 0212 Sep, [facility] [address] [address]- 1335 Aug, [facility] [address] [address]- 4201 Aug, [facility] [address] [address]- 9846 Aug, [facility] [address] [place] [address] 43369- 7145 Aug, [facility] [address] [place] [address] 24517- 0920 Aug, [facility] [address] [place] [address] 02766- 5748 Aug, [facility] [address] [address]- 3563 Aug, Generalized anxiety disorder 300.02 ; Attention deficit disorder of childhood without mention of hyperactivity 314.00 and Major depressive disorder, recurrent episode, severe, specified as with psychotic behavior 296.34 [facility] [address] 1472 July, Diabetes with renal manifestations, type II or unspecified type, uncontrolled 250.42 [facility] [address] [address]- 4473 July, [facility] [address] [address]- 8507 July, [facility] [address] [address]- 3371 July, [facility] [address]- 9249 30 Jun, 2014 [facility] [address] 7038 14 Jun, 2014 [facility] [address] [address]- 0373 13 Jun, 2014 [facility] [place] [facility] [address] [id number] [place] [address]- 7958 30 May, 2014 [facility] [place] [facility] [address] [id number] [place] [address]- 2864 30 May, 2014 [facility] [place] [facility] [address] [id number] [place] [address]- 6747 30 May, 2014 [facility] [place] [facility] [address] [id number] [place] [address]- 2369 30 May, 2014 [facility] [place] [facility] [address] [id number] [place] [address]- 7037 May, [facility] [place] [facility] [address] [id number] [place] [address]- 9328 May, [facility] [place] [facility] [address] [id number] [place] [address]- 3678 May, [facility] [place] [facility] [address] [id number] [place] [address]- 1317 May, [facility] [place] [facility] [address] [id number] [place] [address]- 6591 18 May, 2014 [facility] [place] [facility] [address] [id number] [place] [address]- 2974 18 May, 2014 [facility] [place] [facility] [address] [id number] [place] [address]- 5500 May, [facility] [place] [facility] [address] [id number] [address]- 3647 May, [facility] [place] [facility] [address] [id number] [place] [address]- 8073 May, [facility] [place] [facility] [address] [id number] [place] [address]- 1247 May, [facility] [place] [facility] [address] [id number] [place] [address]- 2618 23 Apr, 2014 [facility] [place] [facility] [address] [id number] [place] [address]- 2544 23 Apr, 2014 [facility] [place] [facility] [address] [id number] [place] [address] 2546 Apr, 2014 [facility] [place] [facility] [address] [id number] [place] [address] 2546 17 Apr, 2014 [facility] [place] [facility] [address] [id number] [place] [address] 2546 Apr, 2014 [facility] [place] [facility] [address] [id number] [place] [address]- 2547 Apr, 2014 [facility] [place] [facility] [address] [id number] [place] [address]- 6246 Apr, [facility] [place] [facility] [address] [id number] [place] [address]- 5795 Apr, [facility] [place] [facility] [address] [id number] [place] [address]- 5202 Mar, [facility] [place] [facility] [address] [id number] [place] [address]- 2837 Mar, [facility] [place] [facility] [address] [id number] [place] [address]- 2873 Mar, [facility] [place] [facility] [address] [id number] [place] [address]- 2243 Mar, [facility] [place] [facility] [address] [id number] [place] [address]- 2545 Mar, [facility] [place] [facility] [address] [id number] [place] [address] 2541 Mar, [facility] [place] [facility] [address] [id number] [place] [address]- 2544 Mar, [facility] [place] [facility] [address] [id number] [place] [address]- 2546 Mar, [facility] [place] [facility] [address] [id number] [place] [address]- 4276 Mar, [facility] [place] [facility] [address] [id number] [place] [address]- 0847 16 Mar, 2014 [facility] [place] [facility] [address] [id number] [place] [address]- 0354 Mar, [facility] [place] [facility] [address] [id number] [place] [address]- 3584 Mar, [facility] [place] [facility] [address] [id number] [place] [address]- 9284 Mar, [facility] [place] [facility] [address] [id number] [place] [address]- 8888 Mar, [facility] [place] [facility] [address] [id number] [place] [address]- 9043 Mar, [facility] [place] [facility] [address] [id number] [place] [address]- 2357 Mar, [facility] [place] [facility] [address] [id number] [place] [address]- 0975 Feb, [facility] [place] [facility] [address] [id number] [place] [address]- 1099 Feb, [facility] [place] [facility] [address] [id number] [place] [address]- 9257 Feb, [facility] [place] [facility] [address] [id number] [place] [address]- 4685 Feb, [facility] [place] [facility] [address] [id number] [place] [address]- 4496 19 Feb, 2014 [facility] [place] [facility] [address] [id number] [place] [address]- 8377 19 Feb, 2014 [facility] [place] [facility] [address] [id number] [place] [address]- 3872 15 Feb, 2014 [facility] [place] [facility] [address] [id number] [place] [address]- 0965 15 Feb, 2014 [facility] [place] [facility] [address] [id number] [place] [address]- 7967 08 Feb, 2014 [facility] [place] [facility] [address] [id number] [place] [address]- 6864 Feb, [facility] [place] [facility] [address] [id number] [place] [address]- 2571 Jan, [facility] [place] [facility] [address] [id number] [place] [address]- 9689 Jan, [facility] [place] [facility] [address] [id number] [place] [address]- 4331 Jan, [facility] [place] [facility] [address] [id number] [place] [address]- 5815 Jan, [facility] [place] [facility] [address] [id number] [place] [address]- 6125 Jan, [facility] [place] [facility] [address] [id number] [place] [address]- 1527 Jan, [facility] [place] [facility] [address] [id number] [place] [address]- 6105 Jan, [facility] [place] [facility] [address] [id number] [place] [address]- 2741 Jan, [facility] [place] [facility] [address] [facility] [id number] [place] [address]- 4769 Jan, [facility] [place] [facility] [address] [id number] [place] [address]- 7307 Dec, [facility] [place] [facility] [address] [id number] [place] [address]- 1476 Dec, [facility] [place] [facility] [address] [id number] [place] [address]- 0652 Dec, [facility] [place] [facility] [address] [id number] [place] [address]- 8360 Dec, [facility] [place] [facility] [address] [id number] [address]- 8132 Dec, [facility] [place] [facility] [address] [id number] [place] [address]- 7543 Dec, [facility] [place] [facility] [address] [id number] [place] [address]- 6002 Nov, [facility] [place] [facility] [address] [id number] [place] [address]- 6208 Nov, 2013 [facility] [place] [facility] [address] [id number] [place] [address] Nov, 2013 [facility] [place] [facility] [address] [id number] [place] [address] Nov, 2013 [facility] [place] [facility] [address] [id number] [place] [address] Nov, 2013 [facility] [place] [facility] [address] [id number] [place] [address] Nov, 2013 [facility] [place] [facility] [address] [id number] [place] [address] Nov, [facility] [place] [facility] [address] [id number] [place] [address] Nov, [facility] [place] [facility] [address] [id number] [place] [address] Oct, [facility] [place] [facility] [address] [id number] [place] [address] Oct, [facility] [place] [facility] [address] [id number] [place] [address] Oct, [facility] [place] [facility] [address] [id number] [place] [address] Oct, [facility] [place] [facility] [address] [id number] [place] [address] Oct, [facility] [place] [facility] [address] [id number] [place] [address] Oct, [facility] [place] [facility] [address] [id number] [place] [address] Sep, [facility] [place] [facility] [address] [id number] [place] [address] Sep, [facility] [place] [facility] [address] [id number] [place] [address] Sep, [facility] [place] [facility] [address] [id number] [place] [address] Aug, [facility] [place] [facility] [address] [id number] [place] [address] Aug, [facility] [place] [facility] [address] [id number] [place] [address] July, [facility] [place] [facility] [address] [id number] [place] [address] July, [facility] [place] [facility] [address] [id number] [place] [address] Jun, [facility] [place] [facility] [address] [id number] [place] [address] Jun, [facility] [place] [facility] [address] [id number] [place] [address] Jun, [facility] [place] [facility] [address] [id number] [place] [address] Jun, [facility] [place] [facility] [address] [id number] [place] [address] Jun, [facility] [place] [facility] [address] [id number] [place] [address] Jun, [facility] [place] [facility] [address] [id number] [place] [address] Jun, [facility] [place] [facility] [address] [id number] [place] [address] Jun, [facility] [place] [facility] [address] [id number] [place] [address] Jun, [facility] [place] [facility] [address] [id number] [place] [address] Jun, [facility] [place] [facility] [address] [id number] [place] [address] Jun, [facility] [place] [facility] [address] [id number] [place] [address] Jun, [facility] [place] [facility] [address] [id number] [place] [address] May, [facility] [place] [facility] [address] [id number] [place] [address] May, [facility] [place] [facility] [address] [address] [id number] [place] [address] May, [facility] [place] [facility] [address] [id number] [place] [address] May, [facility] [place] [facility] [address] [id number] [place] [address] May, [facility] [place] [facility] [address] [id number] [place] [address] Apr, [facility] [place] [facility] [address] [id number] [place] [address] Apr, [facility] [place] [facility] [address] [id number] [place] [address] Apr, [facility] [place] [facility] [address] [id number] [place] [address] Apr, [facility] [place] [facility] [address] [id number] [place] [address] Mar, [facility] [place] [facility] [address] [id number] [place] [address] Mar, [facility] [place] [facility] [address] [id number] [place] [address] Mar, [facility] [place] [facility] [address] [id number] [place] [address] Mar, [facility] [address] [id number] [place] [address] Feb, [facility] [place] [facility] [address] [id number] [place] [address] Feb, [facility] [place] [facility] [address] [id number] [place] [address] Feb, [facility] [place] [facility] [address] [id number] [place] [address] Feb, [facility] [place] [facility] [address] [id number] [place] [address] Jan, [facility] [place] [facility] [address] [id number] [place] [address] Jan, [facility] [place] [facility] [address] [id number] [place] [address] Jan, [facility] [place] [facility] [address] [id number] [place] [address] Jan, [facility] [place] [facility] [address] [id number] [place] [address] Dec, [facility] [place] [facility] [address] [id number] [place] [address] 27 Nov, 2012 [facility] [place] [facility] [address] [id number] [place] [address] 23 Nov, 2012 [facility] [place] [facility] [address] [id number] [place] [address] 23 Nov, 2012 [facility] [place] [facility] [address] [id number] [place] [address] 10 Nov, 2012 [facility] [place] [facility] [address] [id number] [place] [address] 09 Nov, 2012 [facility] [place] [facility] [address] [id number] [place] [address] 15 Oct, 2012 [facility] [place] [facility] [address] [id number] [place] [address] Oct, [facility] [address] [id number] [place] [address] Sep, [facility] [place] [facility] [address] [id number] [place] [address] Sep, [facility] [address] [id number] [place] [address] Sep, [facility] [place] [facility] [address] [id number] [place] [address] Sep, [facility] [address] [id number] [place] [address] Sep, [facility] [place] [facility] [address] [id number] [place] [address] Aug, [facility] [address] [id number] [place] [address] Aug, [facility] [place] [facility] [address] [id number] [place] [address] 1447 Aug, [facility] [place] [facility] [address] [id number] [place] [address] Aug, [facility] [address] [id number] [place] [address] July, [facility] [place] [facility] [address] [id number] [place] [address]147 July, [facility] [place] [facility] [address] [id number] [place] [address] July, [facility] [place] [facility] [address] [id number] [place] [address]26 Jun, [facility] [place] [facility] [address] [id number] [place] [address] May, [facility] [place] [facility] [address] [id number] [place] [address] 74[address] May, [facility] [place] [facility] [address] [id number] [place] [address] Apr, [facility] [address] [id number] [place] [address] Mar, [facility] [address] [id number] [place] [address] Mar, [facility] [address] [id number] [place] [address] 8766 Mar, [facility] [address] [id number] [place] [address] 4056 Mar, [facility] [address] [id number] [place] [address]66 Feb, [facility] [address] [id number] [place] [address]99 Feb, [facility] [address] [id number] [place] [address] Feb, [facility] [address] [id number] [place] [address] Feb, [facility] [address] [id number] [place] [address]26 Jan, [facility] [address] [id number] [place] [address] Jan, [facility] [address] [id number] [place] [address]46 Sep, [facility] [place] [facility] [address] [id number] [place] [address]46 Sep, [facility] [place] [facility] [address] [id number] [place] [address] 7236 Aug, [facility] [place] [facility] [address] [id number] [place] [address]46 Aug, [facility] [place] [facility] [address] [id number] [place] [address] Jun, [facility] [address] [address] May, [facility] [address] [place] [address] May, [facility] [address] [place] [address] Mar, [facility] [address] [place] [address] Mar, [facility] [address] [id number] [address] Feb, [facility] [address] [place] [address] Feb, [facility] [address] [place] [address] Feb, [facility] [address] [place] [address] 64[address] Dec, [facility] [address] [place] [address] Aug, [facility] [address] [place] [address] 9[address] May, [facility] [address] [place] [address]- [address] Mar, [facility] [address] [place] [address] Oct, [facility] [address] [address] Sep, [facility] [address] [place] [address] Jun, IMMUNIZATIONS No Known Immunizations SOCIAL HISTORY Never Assessed REASON FOR VISIT Medication question PLAN OF CARE VITAL SIGNS MEDICATIONS Unknown Medications RESULTS No Results PROCEDURES No Known procedures INSTRUCTIONS MEDICATIONS ADMINISTERED No Known Medications MEDICAL (GENERAL) HISTORY Type Description Date Medical History type II diabetes Medical History hypertension Medical History hepatitis C-dx 2001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
--- OUTSIDE RECORDS SUMMARY | 2018-02-25 23:33 | XMS REPORT ---
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 Active 225328918 Problem [facility] 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.4 Active 779307267 Problem Type 2 diabetes mellitus with diabetic nephropathy E11.21 Active 056602431 Problem Type 2 diabetes mellitus with hyperglycemia E11.65 Active 033325418 Problem Uncontrolled type 2 diabetes mellitus without complication, without long-term 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 E11.65 Active 099768460 Problem Diabetes type 2, uncontrolled E11.65 Active 452240043 Problem Noncompliance of patient with dietary regimen Z91.11 Active 166253869 Problem Mood disorder F39 Active 44676879 Problem Attention deficit hyperactivity disorder (ADHD), predominantly inattentive type F90.0 Active 09840721 Problem Major depression, chronic F32.9 Active 993745159 Problem Generalized anxiety disorder F41.1 Active 72039355 Problem Noncompliance w/medication treatment due to intermit use of medication Z91.14 Active 546390442 Problem Recurrent major depressive disorder, in partial remission F33.41 Active 65347240 Problem 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 Active 820718477 Problem Attention deficit hyperactivity disorder, combined type F90.2 Active 56866750 ALLERGIES No Information ENCOUNTERS Encounter Location Date Diagnosis [facility] [address] [facility] [id number] [address] Jan, [facility] [address] [address] Jan, [facility] [id number] [place] [address] 38927- 9120 Jan, [facility] [id number] [place] [address] 53624- 1020 Dec, Diabetes type 2, uncontrolled E11.65 [facility] [id number] [place] [address] 01294- 9640 Dec, Diabetes type 2, uncontrolled E11.65 [facility] [address] [place] [address] 31285- 3961 Dec, Cutaneous abscess of unspecified hand L02.519 and Cellulitis of unspecified part of limb L03.119 [facility] [address] [place] [address] 02823 -1659 Dec, Acute pain of left wrist M25.532 and Closed fracture of left wrist, initial encounter S62.102A [facility] [address] [place] [address] 55907- 8116 Dec, [facility] [id number] [place] [address] 08893- 2909 Dec, [facility] [id number] [place] [address] 04843- 3307 Oct, [facility] [id number] [place] [address] 05893- 2686 Oct, [facility] [id number] [place] [address] 61227- 1504 Aug, [facility] [id number] [place] [address] 74635- 6418 July, Generalized anxiety disorder F41.1 ; Bipolar II disorder F31.81 ; Attention deficit hyperactivity disorder, combined type F90.2 ; Cannabis abuse F12.10 and Amphetamine and psychostimulant abuse, 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 [facility] [id number] [place] [address] 03830- 4651 Mar, Type 2 diabetes mellitus with diabetic nephropathy E11.21 [facility] [address], [place] [address] 7507 Mar, Anxiety F41.9 ; Diabetes type 2, uncontrolled E11.65 and Tooth infection K04.7 [facility] [address], [place] [address] 5824 Mar, Type 2 diabetes mellitus with diabetic nephropathy E11.21 [facility] [id number] [place] [address] 44551- 8923 Feb, [facility] [id number] [place] [address] 81268- 5817 Jan, Type 2 diabetes mellitus with diabetic nephropathy E11.21 [facility] [address] [id number] [address] 0288 Dec, Type 2 diabetes mellitus with diabetic nephropathy E11.21 [facility] [address] [id number] [address] 3429 Nov, Mood disorder F39 and Type 2 diabetes mellitus with hyperglycemia E11.65 [facility] [address] [id number], [place] [address] 4859 Oct, Mood disorder F39 and Type 2 diabetes mellitus with hyperglycemia E11.65 [facility] [address], [place] [address] 9617 Sep, Type 2 diabetes mellitus with diabetic nephropathy E11.21 and Seizures R56.9 [facility] [address], [place] [address]- 4866 Sep, [facility] [address] [id number], [place] [address] 6301 Sep, [facility] [address], [place] [address]- 2393 Sep, [facility] [address] [id number] [address] 5738 July, [facility] [address], [place] [address]- 9010 Jun, [facility] [id number] [place] [address] 76721- 0821 Jun, [facility] [address], [place] [address]- 2118 Jun, Uncontrolled type 2 diabetes mellitus without complication, without long-term 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 E11.65 [facility] [address], [place] [address]- 4912 May, [place] [id number] [place] [address] 73174- 5556 May, [place] [address] [place] [address] 99667- 9768 Mar, Generalized anxiety disorder F41.1 ; Major depression F32.9 ; Attention deficit hyperactivity disorder, combined type F90.2 ; Amphetamine and psychostimulant abuse, 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 and Cannabis abuse F12.10 [place] [address] [place] [address] 75954- 8691 Mar, Type 2 diabetes mellitus with diabetic nephropathy E11.21 ; Type 2 diabetes mellitus with hyperglycemia E11.65 and [facility] 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.4 [place] [address], [place] [address]- 3805 Feb, [place] [address], [place] [address]- 0731 Jan, [place] [address], [place] [address]- 4214 Dec, [place] [id number] [place] [address] 67748- 6528 Dec, Generalized anxiety disorder F41.1 ; Attention deficit hyperactivity disorder, combined type F90.2 and Recurrent major depressive disorder, in partial remission F33.41 [place] [id number] [place] [address] 64336- 2740 Dec, Diabetes type 2, uncontrolled E11.65 [facility] [address], [place] [address]- 8770 Dec, [facility] [address] 7566 Dec, [facility] [address], [place] [address]- 0722 Dec, [facility] [address], [place] [address]- 3551 Nov, [facility] [id number] [place] [address] 999495- 1760 Oct, Noncompliance w/medication treatment due to intermit use of medication Z91.14 [facility] [address], [place] [address]- 8858 Oct, Noncompliance w/medication treatment due to intermit use of medication Z91.14 [facility] [address], [place] [address]- 0819 Oct, [facility] [address], [place] [address]- 9639 Oct, [facility] [address], [place] [address]- 7424 Oct, [facility] [address], [place] [address]- 3636 Sep, Diabetic polyneuropathy associated with type 2 diabetes mellitus E11.42 [facility] [address], [place] [address]- 9931 Sep, [facility] [address], [place] [address]- 1455 Aug, Diabetes type 2, uncontrolled E11.65 and Diabetic polyneuropathy associated with type 2 diabetes mellitus E11.42 [facility] [address], [place] [address]- 7868 Aug, [facility] [address] [place] [address] 45721- 2749 Aug, [facility] [id number] [place] [address] 23882- 4256 July, Generalized anxiety disorder F41.1 and Major depression F32.9 [facility] [id number] [place] [address] 56719- 7138 July, [facility] [id number] [place] [address] 32220- 9859 Jun, [facility] [id number] [place] [address] 31022- 7202 May, 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 ; Diabetes type 2, uncontrolled E11.65 ; Gastroenteritis K52.9 ; Malaise R53.81 and Dysrhythmia I49.9 [place] [id number] [place] [address] 55169- 5262 May, [facility] [id number] [place] [address] 87525- 4499 May, [facility] [id number] [place] [address] 24420- 7060 Apr, [facility] [address] [place] [address] 47667- 6732 Apr, Type 2 diabetes mellitus with hyperglycemia E11.65 [facility] [address] [place] [address] 16483- 1072 Apr, [facility] [id number] [place] [address] 19705- 8894 Apr, [facility] 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.899 ; Generalized anxiety disorder F41.1 ; Attention deficit hyperactivity disorder, combined type F90.2 and Major depression F32.9 [facility] [address] [place] [address] 59094- 6720 Mar, [facility] [address] [id number] [place] [address]- 7794 Mar, [facility] [address] [facility] [id number] [place] [address]- 6154 Mar, [facility] [address] [facility] [id number] [place] [address]- 2731 Mar, [facility] [address] [facility] [id number] [place] [address], [place] [address]- 4975 Mar, [facility] [address] [facility] [id number] [place] [address]- 9666 Feb, [facility] [address] [facility] [id number] [place] [address], [place] [address]- 1028 Feb, [facility] [address] [place] [address]- 2995 Feb, [facility] [address] [place] [address] 35366- 4832 Jan, Diabetes type 2, uncontrolled E11.65 [facility] [address], [place] [address]- 5088 Jan, [facility] [address], [place] [address]- 9948 Jan, [facility] [address], [place] [address]- 6712 Jan, [facility] [address] [facility] [id number], [place] [address]- 9766 Dec, [facility] [address] [facility] [id number], [place] [address]- 8360 Dec, [facility] [address] [facility] [id number], [place] [address]- 3487 Dec, [facility] [id number], [place] [address]- 5922 Dec, Type 2 diabetes mellitus with diabetic nephropathy E11.21 [facility] [address], [place] [address]- 9928 Dec, [facility] [id number] [place] [address] 53653- 7859 Dec, [facility] [id number] [place] [address] 27530- 6746 Dec, [facility] [id number] [place] [address] 05355- 9226 Dec, Attention deficit hyperactivity disorder, combined type F90.2 ; Generalized anxiety disorder F41.1 and Major depression F32.9 [facility] [id number] [place] [address] 758605- 8491 Dec, Type 2 diabetes mellitus with diabetic nephropathy E11.21 and Type 2 diabetes mellitus with hyperglycemia E11.65 [facility] [id number] [place] [address] 74485- 2199 30 Nov, 2014 [facility] [id number] [place] [address] 32492- 7756 17 Nov, 2014 [facility] [id number] [place] [address] 25360- 0016 Nov, [facility] [id number] [place] [address] 71817- 4690 Oct, [facility] [id number] [place] [address] 80338- 6934 Oct, [facility] [id number] [place] [address] 52070- 1459 Oct, [facility] [id number] [place] [address] 904175- 4468 Sep, Hepatitis C 070.70 and URI, acute 465.9 [facility] [address], [place] [address]- 2560 Sep, [facility] [id number] [place] [address] 18607917- 6180 Sep, [facility] [address] 9695 Sep, [facility] [address], [place] [address]- 1308 Aug, [facility] [address]- 7693 Aug, [facility] [id number] [place] [address] 43549- 5653 Aug, [facility] [address] [place] [address] 431552- 0155 Aug, [facility] [id number] [place] [address] 900913- 1190 Aug, [facility] [address], [place] [address]- 9841 Aug, [facility] [address], [place] [address]- 8875 Aug, Generalized anxiety disorder 300.02 ; Attention deficit disorder of childhood without mention of hyperactivity 314.00 and Major depressive disorder, recurrent episode, severe, specified as with psychotic behavior 296.34 [facility] [address], [place] [address]- 6164 July, Diabetes with renal manifestations, type II or unspecified type, uncontrolled 250.42 [facility] [address], [place] [address]- 6576 July, [facility] [address]- 7496 July, [facility] [id number] 6720 July, [facility] [address] 4314 30 Jun, 2014 [facility] [address], [place] [address]- 4235 14 Jun, 2014 [facility] [place] [facility] [address] [id number] [place] [address]- 9434 13 Jun, 2014 [facility] [place] [facility] [address] [id number] [place] [address]- 7067 30 May, 2014 [facility] [place] [facility] [address] [id number] [place] [address]- 8621 30 May, 2014 [facility] [place] [facility] [address] [id number] [place] [address]- 1373 30 May, 2014 [facility] [place] [facility] [address] [id number] [place] [address]- 7762 30 May, 2014 [facility] [place] [facility] [address] [id number] [place] [address]- 1295 28 May, 2014 [facility] [place] [facility] [address] [id number] [place] [address]- 2517 28 May, 2014 [facility] [place] [facility] [address] [id number] [place] [address]- 8568 26 May, 2014 [facility] [place] [facility] [address] [id number] [place] [address]- 7323 26 May, 2014 [facility] [place] [facility] [address] [id number] [place] [address]- 6265 18 May, 2014 [facility] [place] [facility] [address] [id number] [place] [address]- 6202 18 May, 2014 [facility] [place] [facility] [address] [id number], [place] [address]- 8742 13 May, 2014 [facility] [place] [facility] [address] [id number] [place] [address]- 0519 13 May, 2014 [facility] [place] [facility] [address] [id number] [place] [address]- 5477 11 May, 2014 [facility] [place] [facility] [address] [id number] [place] [address]- 0293 11 May, 2014 [facility] [place] [facility] [address] [id number] [place] [address]- 1273 Apr, 2014 [facility] [place] [facility] [address] [id number] [place] [address]- 7756 Apr, 2014 [facility] [place] [facility] [address] [id number] [place] [address] 2546 Apr, 2014 [facility] [place] [facility] [address] [id number] [place] [address] 2546 Apr, 2014 [facility] [place] [facility] [address] [id number] [place] [address]- 2540 Apr, 2014 [facility] [place] [facility] [address] [id number] [place] [address]- 7246 Apr, 2014 [facility] [place] [facility] [address] [id number] [place] [address]- 254 Apr, 2014 [facility] [place] [facility] [address] [id number] [place] [address]- 5535 Apr, [facility] [place] [facility] [address] [id number] [place] [address]- 1134 Mar, [facility] [place] [facility] [address] [id number] [place] [address]- 6082 Mar, [facility] [place] [facility] [address] [id number] [place] [address]- 4697 Mar, [facility] [place] [facility] [address] [id number] [place] [address]- 2541 Mar, [facility] [place] [facility] [address] [id number] [place] [address] 2544 Mar, [facility] [place] [facility] [address] [id number] [place] [address]- 2546 Mar, [facility] [place] [facility] [address] [id number] [place] [address]- 254 Mar, [facility] [place] [facility] [address] [id number] [place] [address]- 8653 Mar, [facility] [place] [facility] [address] [id number] [place] [address]- 9637 Mar, [facility] [place] [facility] [address] [id number] [place] [address]- 9628 Mar, [facility] [place] [facility] [address] [id number] [place] [address]- 8103 Mar, [facility] [place] [facility] [address] [id number] [place] [address]- 7737 Mar, [facility] [place] [facility] [address] [id number] [place] [address]- 6145 Mar, [facility] [place] [facility] [address] [id number] [place] [address]- 6625 Mar, [facility] [place] [facility] [address] [id number] [place] [address]- 1635 Mar, [facility] [place] [facility] [address] [id number] [place] [address]- 1097 Mar, [facility] [place] [facility] [address] [id number] [place] [address]- 3156 Feb, [facility] [place] [facility] [address] [id number] [place] [address]- 9356 Feb, [facility] [place] [facility] [address] [id number] [place] [address]- 0336 Feb, [facility] [place] [facility] [address] [id number] [place] [address]- 0323 Feb, [facility] [place] [facility] [address] [id number] [place] [address]- 0545 Feb, [facility] [place] [facility] [address] [id number] [place] [address]- 4821 Feb, [facility] [place] [facility] [address] [id number] [place] [address]- 1024 15 Feb, 2014 [facility] [place] [facility] [address] [id number] [place] [address]- 8049 15 Feb, 2014 [facility] [place] [facility] [address] [id number] [place] [address]- 0656 Feb, [facility] [place] [facility] [address] [id number] [place] [address]- 4298 Feb, [facility] [place] [facility] [address] [id number] [place] [address]- 5490 Jan, [facility] [place] [facility] [address] [id number] [place] [address]- 4093 Jan, [facility] [place] [facility] [address] [id number] [place] [address]- 0932 Jan, [facility] [place] [facility] [address] [id number] [place] [address]- 9754 Jan, [facility] [place] [facility] [address] [id number] [place] [address]- 0020 Jan, [facility] [place] [facility] [address] [id number] [place] [address]- 7709 Jan, [facility] [place] [facility] [address] [id number] [place] [address]- 9897 Jan, [facility] [place] [facility] [address] [facility] [id number] [place] [address]- 5143 Jan, [facility] [place] [facility] [address] [id number] [place] [address] Jan, [facility] [place] [facility] [address] [id number], [place] [address] Dec, [facility] [place] [facility] [address] [id number] [place] [address] Dec, [facility] [place] [facility] [address] [facility] [id number] [place] [address] Dec, [facility] [place] [facility] [address] [id number] [place] [address] Dec, [facility] [place] [facility] [address] [id number] [place] [address] Dec, [facility] [place] [facility] [address] [id number] [place] [address] Dec, [facility] [place] [facility] [address] [id number] [place] [address] Nov, [facility] [place] [facility] [address] [id number] [place] [address] Nov, [facility] [place] [facility] [address] [id number] [place] [address] Nov, [facility] [place] [facility] [address] [id number] [place] [address] Nov, 2013 [facility] [place] [facility] [address] [id number] [place] [address] Nov, 2013 [facility] [place] [facility] [address] [id number] [place] [address] Nov, [facility] [place] [facility] [address] [id number] [place] [address] Nov, [facility] [place] [facility] [address] [id number] [place] [address] Nov, [facility] [place] [facility] [address] [id number] [place] [address] Oct, [facility] [place] [facility] [address] [id number] [place] [address] Oct, [facility] [place] [facility] [address] [id number] [place] [address] Oct, [facility] [place] [facility] [address] [id number] [place] [address] Oct, [facility] [place] [facility] [address] [id number] [place] [address] Oct, [facility] [place] [facility] [address] [id number] [place] [address] Oct, [facility] [place] [facility] [address] [id number] [place] [address] Sep, [facility] [place] [facility] [address] [id number] [place] [address] Sep, [facility] [place] [facility] [address] [id number] [place] [address] Sep, [facility] [place] [facility] [address] [id number] [place] [address] Aug, [facility] [place] [facility] [address] [id number] [place] [address] Aug, [facility] [place] [facility] [address] [id number] [place] [address] July, [facility] [place] [facility] [address] [id number] [place] [address] July, [facility] [place] [facility] [address] [id number] [place] [address] Jun, [facility] [place] [facility] [address] [id number] [place] [address] Jun, [facility] [place] [facility] [address] [id number] [place] [address] Jun, [facility] [place] [facility] [address] [id number] [place] [address] Jun, [facility] [place] [facility] [address] [id number] [place] [address] Jun, [facility] [place] [facility] [address] [id number] [place] [address] Jun, [facility] [place] [facility] [address] [id number] [place] [address] Jun, [facility] [place] [facility] [address] [id number] [place] [address] Jun, [facility] [place] [facility] [address] [id number] [place] [address] Jun, [facility] [place] [facility] [address] [id number] [place] [address] Jun, [facility] [place] [facility] [address] [address] [id number] [place] [address] Jun, [facility] [place] [facility] [address] [id number] [place] [address] Jun, [facility] [place] [facility] [address] [id number] [place] [address] May, [facility] [place] [facility] [address] [id number] [place] [address] May, [facility] [place] [facility] [address] [id number] [place] [address] May, [facility] [place] [facility] [address] [id number] [place] [address] May, [facility] [place] [facility] [address] [id number] [place] [address] May, [facility] [place] [facility] [address] [id number] [place] [address] Apr, [facility] [place] [facility] [address] [id number] [place] [address] Apr, [facility] [place] [facility] [address] [id number] [place] [address] Apr, [facility] [place] [facility] [address] [id number] [place] [address] Apr, [facility] [place] [facility] [address] [id number] [place] [address] Mar, [facility] [place] [facility] [address] [id number] [place] [address] Mar, [facility] [place] [facility] [address] [id number] [place] [address] Mar, [facility] [place] [facility] [address] [id number] [place] [address]97 Mar, [facility] [place] [facility] [address] [id number] [place] [address] Feb, [facility] [place] [facility] [address] [id number] [place] [address] Feb, [facility] [place] [facility] [address] [id number] [place] [address] Feb, [facility] [place] [facility] [address] [id number] [place] [address] 69[address] Feb, [facility] [place] [facility] [address] [id number] [place] [address] Jan, [facility] [place] [facility] [address] [id number] [place] [address] Jan, [facility] [place] [facility] [address] [id number], [place] [address] Jan, [facility] [place] [facility] [address] [id number] [place] [address] 79[address] Jan, [facility] [place] [facility] [address] [id number], [place] [address] 08 Dec, 2012 [facility] [place] [facility] [address] [id number], [place] [address] 27 Nov, 2012 [facility] [place] [facility] [address] [id number], [place] [address] 23 Nov, 2012 [facility] [place] [facility] [address] [id number] [place] [address] 23 Nov, 2012 [facility] [place] [facility] [address] [id number], [place] [address] 10 Nov, 2012 [facility] [place] [facility] [address] [id number], [place] [address] 09 Nov, 2012 [facility] [place] [facility] [address] [id number] [place] [address] Oct, [facility] [address] [id number] [place] [address] Oct, [facility] [place] [facility] [address] [id number] [place] [address] Sep, [facility] [address] [id number] [place] [address] Sep, [facility] [place] [facility] [address] [id number] [place] [address] 49[address] Sep, [facility] [address] [id number] [place] [address]9 Sep, [facility] [place] [facility] [address] [id number] [place] [address] Sep, [facility] [address] [id number] [place] [address] 7089 Aug, [facility] [place] [facility] [address] [id number] [place] [address] 9869 Aug, [facility] [place] [facility] [address] [id number] [place] [address] Aug, [facility] [place] [facility] [address] [id number] [place] [address] Aug, [facility] [place] [facility] [address] [id number] [place] [address] 16[address] July, [facility] [place] [facility] [address] [id number] [place] [address] July, [facility] [place] [facility] [address] [id number] [place] [address] July, [facility] [place] [facility] [address] [id number] [place] [address] Jun, [facility] [place] [facility] [address] [id number] [place] [address] 2437 May, [facility] [place] [facility] [address] [id number] [place] [address] 2547 May, [facility] [address] [id number] [place] [address] 9579 Apr, [facility] [address] [id number] [place] [address] Mar, [facility] [address] [id number] [place] [address]48 Mar, [facility] [address] [id number] [place] [address] 7443 Mar, [facility] [address] [id number] [place] [address] 9226 Mar, [facility] [address] [id number] [place] [address] Feb, [facility] [address] [id number] [place] [address] 3032 Feb, [facility] [address] [id number] [place] [address] 5974 Feb, [facility] [address] [id number] [place] [address] Feb, [facility] [address] [id number] [place] [address]- 5546 Jan, [facility] [address] [id number] [place] [address]- 2543 Jan, [facility] [place] [facility] [address] [id number] [place] [address] 0369 Sep, [facility] [place] [facility] [address] [id number] [place] [address]- 2546 Sep, [facility] [address] [id number] [place] [address] 45[address] Aug, [facility] [place] [facility] [address] [id number], [place] [address] Aug, [facility] [address] [facility] [id number] [place] [address] Jun, [facility] [address] [facility] [id number], [place] [address] May, [facility] [address] [facility] [id number] [place] [address]- 2733 May, [facility] [address] [facility] [id number], [place] [address] Mar, [facility] [address] [facility] [id number] [place] [address]- 4121 Mar, [facility] [address] [facility] [id number] [place] [address]- 5708 Feb, [facility] [address] [facility] [id number], [place] [address]- 8789 Feb, [facility] [address] [facility] [id number], [place] [address] 8926 Feb, [facility] [address] [facility] [id number], [place] [address]- 74[address] Dec, [facility] [address] [facility] [id number], [place] [address]- 3767 Aug, [facility] [address] [facility] [id number], [place] [address] 6057 May, [facility] [address] [facility] [id number], [place] [address]- 99[address] Mar, [facility] [address] [facility] [id number], [place] [address]- [address] Oct, [facility] [address] [facility] [id number], [place] [address]- [address] 14 Sep, 2009 [facility] [address] [facility] [id number], [place] [address]- [address] 16 Jun, 2009 IMMUNIZATIONS No Known Immunizations SOCIAL HISTORY Never Assessed REASON FOR VISIT med request PLAN OF CARE VITAL SIGNS MEDICATIONS Medication Instructions Dosage Frequency Start Date End Date Duration Status Benicar HCT 40-25 MG TAKE ONE TABLET BY MOUTH ONCE DAILY 30 Active RESULTS No Results PROCEDURES No Known procedures [...]
--- OUTSIDE RECORDS SUMMARY | 2018-02-25 23:34 | XMS REPORT ---
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 Active 528124627 Problem correction 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.4 Active 889252637 Problem Type 2 diabetes mellitus with diabetic nephropathy E11.21 Active 804948456 Problem Type 2 diabetes mellitus with hyperglycemia E11.65 Active 975842995 Problem Uncontrolled type 2 diabetes mellitus without complication, without long-term 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 E11.65 Active 211537951 Problem Diabetes type 2, uncontrolled E11.65 Active 569152177 Problem Noncompliance of patient with dietary regimen Z91.11 Active 392460245 Problem Mood disorder F39 Active 40032874 Problem Attention deficit hyperactivity disorder (ADHD), predominantly inattentive type F90.0 Active 78535346 Problem Major depression, chronic F32.9 Active 379726875 Problem Generalized anxiety disorder F41.1 Active 80998900 Problem Noncompliance w/medication treatment due to intermit use of medication Z91.14 Active 626708426 Problem Recurrent major depressive disorder, in partial remission F33.41 Active 23674958 Problem director ehs 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.899 Active 858915940 Problem Attention deficit hyperactivity disorder, combined type F90.2 Active 30449507 ALLERGIES No Information ENCOUNTERS Encounter Location Date Diagnosis [facility] [address] [facility] [id number] [address] Jan, [facility] [address] [address] Dec, Diabetes type 2, uncontrolled E11.65 [facility] [id number] [place] [address] 27996- 3951 Dec, Diabetes type 2, uncontrolled E11.65 [facility] [id number] [place] [address] 19321- 6966 Dec, Cutaneous abscess of unspecified hand L02.519 and Cellulitis of unspecified part of limb L03.119 [facility] [id number] [place] [address] 07811 -9940 Dec, Acute pain of left wrist M25.532 and Closed fracture of left wrist, initial encounter S62.102A [facility] [id number] [place] [address] 95230- 8389 Dec, [facility] [id number] [place] [address] 21656- 0319 Dec, [facility] [id number] [place] [address] 29905- 2317 Oct, [facility] [id number] [place] [address] 49061- 4285 Oct, [facility] [id number] [place] [address] 62070- 2290 Aug, [facility] [id number] [place] [address] 72134- 1823 July, Generalized anxiety disorder F41.1 ; Bipolar II disorder F31.81 ; Attention deficit hyperactivity disorder, combined type F90.2 ; Cannabis abuse F12.10 and Amphetamine and psychostimulant abuse, 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 [facility] [id number] [place] [address] 74458- 2235 Mar, Type 2 diabetes mellitus with diabetic nephropathy E11.21 [facility] [id number] [place] [address] 79597- 4049 Mar, Anxiety F41.9 ; Diabetes type 2, uncontrolled E11.65 and Tooth infection K04.7 [facility] [address] [place] [address]- 2902 Mar, Type 2 diabetes mellitus with diabetic nephropathy E11.21 [facility] [address] [place] [address]- 6296 Feb, [facility] [id number] [place] [address] 93372- 2795 Jan, Type 2 diabetes mellitus with diabetic nephropathy E11.21 [facility] [id number] [place] [address]- 6149 Dec, Type 2 diabetes mellitus with diabetic nephropathy E11.21 [facility] [id number] [address] 1275 Nov, Mood disorder F39 and Type 2 diabetes mellitus with hyperglycemia E11.65 [facility] [id number] [place] [address] 89973- 1675 Oct, Mood disorder F39 and Type 2 diabetes mellitus with hyperglycemia E11.65 [facility] [address] [address]- 9828 Sep, Type 2 diabetes mellitus with diabetic nephropathy E11.21 and Seizures R56.9 [facility] [address] [address]- 6462 Sep, [facility] [address] [address]- 3171 Sep, [facility] [address] [address]- 0637 Sep, [facility] [id number] [place] [address]- 6675 July, [facility] [address] [place] [address]- 2485 Jun, [facility] [address] [address]- 6538 Jun, [place] [address], [place] [address]- 5185 Jun, Uncontrolled type 2 diabetes mellitus without complication, without long-term 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 E11.65 [facility] [address] [address]- 7721 May, [place] [id number] [place] [address] 15465- 3643 May, [facility] [id number] [place] [address] 74994- 5747 Mar, Generalized anxiety disorder F41.1 ; Major depression F32.9 ; Attention deficit hyperactivity disorder, combined type F90.2 ; Amphetamine and psychostimulant abuse, 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 and Cannabis abuse F12.10 [place] [facility] [address] [address]- 0771 Mar, Type 2 diabetes mellitus with diabetic nephropathy E11.21 ; Type 2 diabetes mellitus with hyperglycemia E11.65 and correction 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.4 [facility] [facility] [address] [address]- 4225 Feb, [facility] [id number] [place] [address] 93108- 6443 Jan, [place] [address] [address]- 0676 Dec, [facility] [id number] [place] [address] 17884- 0804 Dec, Generalized anxiety disorder F41.1 ; Attention deficit hyperactivity disorder, combined type F90.2 and Recurrent major depressive disorder, in partial remission F33.41 [facility] [id number] [place] [address] 65410- 2459 Dec, Diabetes type 2, uncontrolled E11.65 [place] [address], [place] [address]- 7287 Dec, [place] [address] 8871 Dec, [facility] [address] [address]- 0226 Dec, [facility] [address] [address] Nov, [facility] [id number] [address]- 3279 Oct, Noncompliance w/medication treatment due to intermit use of medication Z91.14 [facility] [address] [address] Oct, Noncompliance w/medication treatment due to intermit use of medication Z91.14 [facility] [address], [place] [address]- 1363 Oct, [facility] [address], [place] [address]- 5614 Oct, [facility] [address], [place] [address]- 7028 Oct, [facility] [address], [place] [address]- 5302 Sep, Diabetic polyneuropathy associated with type 2 diabetes mellitus E11.42 [facility] [address], [place] [address]- 7049 Sep, [facility] [address], [place] [address]- 1526 Aug, Diabetes type 2, uncontrolled E11.65 and Diabetic polyneuropathy associated with type 2 diabetes mellitus E11.42 [facility] [address], [place] [address]- 9004 Aug, [facility] [address], [place] [address]- 6274 Aug, [facility] [address] [address]- 4123 July, Generalized anxiety disorder F41.1 and Major depression F32.9 [facility] [id number] [place] [address] 64673- 6278 July, [facility] [id number] [place] [address] 82707- 7017 Jun, [facility] [id number] [place] [address] 84329- 8104 May, director ehs 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.899 ; Diabetes type 2, uncontrolled E11.65 ; Gastroenteritis K52.9 ; Malaise R53.81 and Dysrhythmia I49.9 [facility] [id number] [place] [address] 44612- 5421 May, [facility] [facility] [id number] [place] [address] 04091- 4037 May, [facility] [id number] [place] [address] 34236- 1037 Apr, [facility] [id number] [place] [address] 38915- 9118 Apr, Type 2 diabetes mellitus with hyperglycemia E11.65 [facility] [id number] [place] [address] 13457- 9801 Apr, [facility] [id number] [place] [address] 16159- 3110 Apr, director ehs 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.899 ; Generalized anxiety disorder F41.1 ; Attention deficit hyperactivity disorder, combined type F90.2 and Major depression F32.9 [facility] [id number] [place] [address] 77665- 7543 Mar, [facility] [id number] [place] [address] 19190- 2632 Mar, [facility] [id number] [place] [address] 00934- 8432 Mar, [facility] [address] [facility] [id number], [place] [address]- 8036 Mar, [facility] [address] [facility] [id number], [place] [address]- 8475 Mar, [facility] [address] [facility] [id number] [place] [address]- 4545 Feb, [facility] [address] [facility] [id number] [place] [address] 84948- 1666 Feb, [facility] [address] [facility] [id number] [place] [address]- 1740 Feb, [facility] [id number] [place] [address] 69294- 4621 Jan, Diabetes type 2, uncontrolled E11.65 [facility] [address] [address]- 2539 Jan, [facility] [address], [place] [address]- 7139 Jan, [facility] [address], [place] [address]- 0251 Jan, [facility] [address], [place] [address]- 5737 Dec, [facility] [address], [place] [address]- 7684 Dec, [facility] [address], [place] [address]- 8412 Dec, [facility] [id number] 2806 Dec, Type 2 diabetes mellitus with diabetic nephropathy E11.21 [facility] [address] [facility] [id number], [place] [address]- 7321 Dec, [facility] [address], [place] [address]- 0938 Dec, [facility] [address], [place] [address]- 3735 Dec, [facility] [id number] [place] [address] 91471- 6643 Dec, Attention deficit hyperactivity disorder, combined type F90.2 ; Generalized anxiety disorder F41.1 and Major depression F32.9 [facility] [id number] [place] [address] 370991- 2986 Dec, Type 2 diabetes mellitus with diabetic nephropathy E11.21 and Type 2 diabetes mellitus with hyperglycemia E11.65 [facility] [id number] [place] [address] 85407- 0625 30 Nov, 2014 [facility] [id number] [place] [address] 44149- 9873 Nov, [facility] [id number] [place] [address] 03800- 3915 16 Nov, 2014 [facility] [id number] [place] [address] 78165- 1035 Oct, [facility] [id number] [place] [address] 74237- 6817 Oct, [facility] [id number] [place] [address] 80780- 0823 Oct, [facility] [id number] [place] [address] 97238- 5389 Sep, Hepatitis C 070.70 and URI, acute 465.9 [facility] [address], [place] [address]- 4073 Sep, [facility] [id number] [place] [address] 568013- 2666 Sep, [facility] [id number] [place] [address] 74113- 2546 Sep, [facility] [id number] [place] [address] 55139- 8262 Aug, [facility] [address], [place] [address]- 4715 Aug, [facility] [address], [place] [address]- 0927 Aug, [facility] [address], [place] [address]- 9268 Aug, [facility] [id number] [place] [address] 57914- 9315 Aug, [facility] [id number] [place] [address] 24767- 0400 Aug, [facility] [id number] [place] [address] 89246- 7330 Aug, Generalized anxiety disorder 300.02 ; Attention deficit disorder of childhood without mention of hyperactivity 314.00 and Major depressive disorder, recurrent episode, severe, specified as with psychotic behavior 296.34 [facility] [address] [address]- 3564 July, Diabetes with renal manifestations, type II or unspecified type, uncontrolled 250.42 [facility] [address], [place] [address]- 0794 July, [facility] [address], [place] [address]- 1324 July, [facility] [address], [place] [address]- 3854 July, [facility] [address], [place] [address]- 4273 Jun, [facility] [id number] [place] [address] 31894- 5505 Jun, [facility] [address] 9641 Jun, [facility] [address] [place] [address] 42749- 1262 30 May, 2014 [facility] [place] [facility] [address] [id number] [place] [address]- 8243 30 May, 2014 [facility] [place] [facility] [address] [id number] [place] [address]- 9485 30 May, 2014 [facility] [place] [facility] [address] [id number] [place] [address]- 9108 30 May, 2014 [facility] [place] [facility] [address] [id number] [place] [address]- 4650 May, [facility] [place] [facility] [address] [id number] [place] [address]- 6247 May, [facility] [place] [facility] [address] [id number] [place] [address]- 0983 May, [facility] [place] [facility] [address] [id number] [place] [address]- 6498 May, [facility] [place] [facility] [address] [id number] [place] [address]- 2147 18 May, 2014 [facility] [place] [facility] [address] [id number] [place] [address]- 1764 18 May, 2014 [facility] [place] [facility] [address] [id number] [place] [address]- 8982 May, [facility] [place] [facility] [address] [id number] [place] [address]- 5932 May, [facility] [place] [facility] [address] [id number], [place] [address]- 5141 May, [facility] [place] [facility] [address] [id number] [place] [address]- 1222 May, [facility] [place] [facility] [address] [id number] [place] [address]- 0237 Apr, [facility] [place] [facility] [address] [id number] [place] [address]- 6315 Apr, [facility] [place] [facility] [address] [id number] [place] [address]- 4486 17 Apr, 2014 [facility] [place] [facility] [address] [id number] [place] [address]- 9546 17 Apr, 2014 [facility] [place] [facility] [address] [id number] [place] [address]- 2546 13 Apr, 2014 [facility] [place] [facility] [address] [id number] [place] [address]- 1016 Apr, 2014 [facility] [place] [facility] [address] [id number] [place] [address]- 2544 Apr, [facility] [place] [facility] [address] [id number] [place] [address]- 0492 Apr, [facility] [place] [facility] [address] [id number] [place] [address]- 0845 Mar, [facility] [place] [facility] [address] [id number] [place] [address]- 8868 Mar, [facility] [place] [facility] [address] [id number] [place] [address]- 2374 Mar, [facility] [place] [facility] [address] [id number] [place] [address]- 0917 Mar, [facility] [place] [facility] [address] [id number] [place] [address]- 6388 Mar, [facility] [place] [facility] [address] [id number] [place] [address]- 5542 Mar, [facility] [place] [facility] [address] [id number] [place] [address]- 7532 Mar, [facility] [place] [facility] [address] [id number] [place] [address]- 1826 Mar, [facility] [place] [facility] [address] [id number] [place] [address] 2546 Mar, [facility] [place] [facility] [address] [id number] [place] [address]- 7813 Mar, [facility] [place] [facility] [address] [id number] [place] [address]- 0790 Mar, [facility] [place] [facility] [address] [id number] [place] [address]- 2486 16 Mar, 2014 [facility] [place] [facility] [address] [id number] [place] [address]- 0017 Mar, [facility] [place] [facility] [address] [id number] [place] [address]- 4988 Mar, [facility] [place] [facility] [address] [id number] [place] [address]- 1014 Mar, [facility] [place] [facility] [address] [id number] [place] [address]- 1758 Mar, [facility] [place] [facility] [address] [id number] [place] [address]- 7675 Feb, [facility] [place] [facility] [address] [id number] [place] [address]- 5823 Feb, [facility] [place] [facility] [address] [id number] [place] [address]- 4392 Feb, [facility] [place] [facility] [address] [id number] [place] [address]- 8033 Feb, [facility] [place] [facility] [address] [id number] [place] [address]- 0252 Feb, [facility] [place] [facility] [address] [id number] [place] [address]- 8772 19 Feb, 2014 [facility] [place] [facility] [address] [id number] [place] [address]- 2507 15 Feb, 2014 [facility] [place] [facility] [address] [id number] [place] [address]- 7444 15 Feb, 2014 [facility] [place] [facility] [address] [id number] [place] [address]- 9644 08 Feb, 2014 [facility] [place] [facility] [address] [id number] [place] [address]- 2897 Feb, [facility] [place] [facility] [address] [id number] [place] [address]- 2059 Jan, [facility] [place] [facility] [address] [id number] [place] [address]- 2491 Jan, [facility] [place] [facility] [address] [id number] [place] [address]- 6747 Jan, [facility] [place] [facility] [address] [id number] [place] [address]- 5217 Jan, [facility] [place] [facility] [address] [id number] [place] [address]- 1766 Jan, [facility] [place] [facility] [address] [id number] [place] [address]- 1609 Jan, [facility] [place] [facility] [address] [id number] [place] [address]- 0512 Jan, [facility] [place] [facility] [address] [id number] [place] [address]- 8195 Jan, [facility] [place] [facility] [address] [id number] [place] [address]- 5287 Jan, [facility] [place] [facility] [address] [facility] [id number] [place] [address]- 4712 Dec, [facility] [place] [facility] [address] [id number] [place] [address]- 4963 Dec, [facility] [place] [facility] [address] [id number], [place] [address]- 8664 Dec, [facility] [place] [facility] [address] [id number] [place] [address]- 3110 Dec, [facility] [place] [facility] [address] [id number] [place] [address]- 3307 Dec, [facility] [place] [facility] [address] [id number], [place] [address]- 6160 Dec, [facility] [place] [facility] [address] [id number] [place] [address]- 5545 Nov, 2013 [facility] [place] [facility] [address] [id number] [place] [address] Nov, 2013 [facility] [place] [facility] [address] [id number] [place] [address] Nov, 2013 [facility] [place] [facility] [address] [id number] [place] [address] Nov, 2013 [facility] [place] [facility] [address] [id number] [place] [address] Nov, 2013 [facility] [place] [facility] [address] [id number] [place] [address] Nov, 2013 [facility] [place] [facility] [address] [id number] [place] [address] Nov, 2013 [facility] [place] [facility] [address] [id number] [place] [address] Nov, [facility] [place] [facility] [address] [id number] [place] [address] Oct, [facility] [place] [facility] [address] [id number] [place] [address] Oct, [facility] [place] [facility] [address] [id number] [place] [address] Oct, [facility] [place] [facility] [address] [id number] [place] [address] Oct, [facility] [place] [facility] [address] [id number] [place] [address] Oct, [facility] [place] [facility] [address] [id number] [place] [address] Oct, [facility] [place] [facility] [address] [id number] [place] [address] Sep, [facility] [place] [facility] [address] [id number] [place] [address] Sep, [facility] [place] [facility] [address] [id number] [place] [address] Sep, [facility] [place] [facility] [address] [id number] [place] [address] Aug, [facility] [place] [facility] [address] [id number] [place] [address]- [address] Aug, [facility] [place] [facility] [address] [id number] [place] [address] July, [facility] [place] [facility] [address] [id number] [place] [address] July, [facility] [place] [facility] [address] [id number] [place] [address] Jun, [facility] [place] [facility] [address] [id number] [place] [address] Jun, [facility] [place] [facility] [address] [id number] [place] [address] Jun, [facility] [place] [facility] [address] [id number] [place] [address] Jun, [facility] [place] [facility] [address] [id number] [place] [address] Jun, [facility] [place] [facility] [address] [id number] [place] [address] Jun, [facility] [place] [facility] [address] [id number] [place] [address] Jun, [facility] [place] [facility] [address] [id number] [place] [address]- [address] Jun, [facility] [place] [facility] [address] [id number] [place] [address] Jun, [facility] [place] [facility] [address] [id number] [place] [address]- [address] Jun, [facility] [place] [facility] [address] [id number] [place] [address] Jun, [facility] [place] [facility] [address] [id number] [place] [address] Jun, [facility] [place] [facility] [address] [id number] [place] [address] May, [facility] [place] [facility] [address] [id number] [place] [address] May, [facility] [place] [facility] [address] [id number] [place] [address] May, [facility] [place] [facility] [address] [id number] [place] [address] May, [facility] [place] [facility] [address] [id number] [place] [address] May, [facility] [place] [facility] [address] [id number] [place] [address] Apr, [facility] [place] [facility] [address] [id number] [place] [address] Apr, [facility] [place] [facility] [address] [id number] [place] [address] Apr, [facility] [place] [facility] [address] [id number] [place] [address] Apr, [facility] [place] [facility] [address] [id number] [place] [address] Mar, [facility] [place] [facility] [address] [id number] [place] [address] Mar, [facility] [place] [facility] [address] [id number] [place] [address] Mar, [facility] [place] [facility] [address] [id number] [place] [address] Mar, [facility] [place] [facility] [address] [id number] [place] [address] Feb, [facility] [place] [facility] [address] [id number] [place] [address] 17 Feb, 2013 [facility] [place] [facility] [address] [id number] [place] [address] Feb, [facility] [place] [facility] [address] [id number] [place] [address] Feb, [facility] [place] [facility] [address] [id number] [place] [address] Jan, [facility] [place] [facility] [address] [id number] [place] [address] Jan, [facility] [place] [facility] [address] [id number] [place] [address] Jan, [facility] [place] [facility] [address] [id number] [place] [address] Jan, [facility] [place] [facility] [address] [id number] [place] [address] Dec, [facility] [place] [facility] [address] [id number] [place] [address] 27 Nov, 2012 [facility] [place] [facility] [address] [id number] [place] [address]- [address] 23 Nov, 2012 [facility] [place] [facility] [address] [id number], [place] [address] 23 Nov, 2012 [facility] [place] [facility] [address] [id number], [place] [address] 10 Nov, 2012 [facility] [place] [facility] [address] [id number] [place] [address]- [address] 09 Nov, 2012 [facility] [place] [facility] [address] [id number], [place] [address] 15 Oct, 2012 [facility] [place] [facility] [address] [id number], [place] [address] Oct, [facility] [place] [facility] [address] [id number] [place] [address] Sep, [facility] [address] [id number] [place] [address] Sep, [facility] [place] [facility] [address] [id number] [place] [address] Sep, [facility] [address] [id number] [place] [address] Sep, [facility] [place] [facility] [address] [id number] [place] [address]- [address] Sep, [facility] [address] [id number] [place] [address] Aug, [facility] [place] [facility] [address] [id number] [place] [address] Aug, [facility] [address] [id number] [place] [address]- 9499 Aug, [facility] [address] [id number] [place] [address]- [address]666 Aug, [facility] [place] [facility] [address] [id number] [place] [address] July, [facility] [address] [id number] [place] [address] July, [facility] [place] [facility] [address] [id number] [place] [address]169 July, [facility] [place] [facility] [address] [id number] [place] [address] Jun, [facility] [place] [facility] [address] [id number] [place] [address] May, [facility] [place] [facility] [address] [id number] [place] [address]46 May, [facility] [place] [facility] [address] [id number] [place] [address] Apr, [facility] [place] [facility] [address] [id number] [place] [address] Mar, [facility] [address] [id number] [place] [address] 2676 Mar, [facility] [address] [id number] [place] [address] Mar, [facility] [address] [id number] [place] [address] Mar, [facility] [address] [id number] [place] [address] Feb, [facility] [address] [id number] [place] [address] Feb, [facility] [address] [id number] [place] [address] Feb, [facility] [address] [id number] [place] [address] 116[address] Feb, [facility] [address] [id number] [place] [address]- [address]295 Jan, [facility] [address] [id number] [place] [address]- 1432 Jan, [facility] [address] [id number] [place] [address]- 7163 Sep, [facility] [address] [id number], [place] [address] Sep, [facility] [place] [facility] [address] [id number] [place] [address] Aug, [facility] [place] [facility] [address] [id number] [place] [address]- 6596 Aug, [facility] [address] [id number] [place] [address]- 2546 Jun, [facility] [place] [facility] [address] [id number], [place] [address] May, [facility] [id number], [place] [address] May, [facility] [id number], [place] [address] Mar, [facility] [id number], [place] [address] Mar, [facility] [id number], [place] [address] Feb, [facility] [id number], [place] [address] Feb, [facility] [id number], [place] [address] Feb, [facility] [id number], [place] [address] Dec, [facility] [id number], [place] [address] Aug, [facility] [id number], [place] [address] May, [facility] [id number], [place] [address] Mar, [facility] [id number], [place] [address] Oct, [facility] [id number], [place] [address] Sep, [facility] [address] [id number], [place] [address] Jun, IMMUNIZATIONS No Known Immunizations SOCIAL HISTORY Never Assessed REASON FOR VISIT Refill request PLAN OF CARE VITAL SIGNS MEDICATIONS Medication Instructions Dosage Frequency Start Date End Date Duration Status Amlodipine Besylate 10 mg 1 tablet 24h 30 Active Atorvastatin Calcium 10 mg 1 tablet 24h 30 Active Potassium Chloride Nessa ER 10 MEQ 1 tablet 24h 30 Active Metformin HCl 1000 mg TAKE ONE TABLET 12h 30 Active Lexapro 20 mg Orally Once a day 1 tablet 24h 30 days Active RESULTS No Results PROCEDURES No Known [...]
[2018-02-25] MEDS ORDERED: LORazepam INJ 2 MG/ML (ATIVAN) VIAL ONE (23:35)
--- OUTSIDE RECORDS SUMMARY | 2018-02-25 23:35 | XMS REPORT ---
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 Active 578284643 Problem MCC 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.4 Active 458588441 Problem Type 2 diabetes mellitus with diabetic nephropathy E11.21 Active 056837495 Problem Type 2 diabetes mellitus with hyperglycemia E11.65 Active 183611895 Problem Uncontrolled type 2 diabetes mellitus without complication, without long-term 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 E11.65 Active 475921627 Problem Diabetes type 2, uncontrolled E11.65 Active 589682709 Problem Noncompliance of patient with dietary regimen Z91.11 Active 902873893 Problem Mood disorder F39 Active 22398533 Problem Attention deficit hyperactivity disorder (ADHD), predominantly inattentive type F90.0 Active 59974990 Problem Major depression, chronic F32.9 Active 382029134 Problem Generalized anxiety disorder F41.1 Active 03832660 Problem Noncompliance w/medication treatment due to intermit use of medication Z91.14 Active 042953383 Problem Recurrent major depressive disorder, in partial remission F33.41 Active 47501523 Problem 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 Active 397010105 Problem Attention deficit hyperactivity disorder, combined type F90.2 Active 61137982 ALLERGIES No Information ENCOUNTERS Encounter Location Date Diagnosis [facility] [address] [facility] [id number] [address] Jan, [facility] [address], [place] [address] 89[address] Dec, [facility] [id number] [place] [address] 30508- 6441 Dec, Diabetes type 2, uncontrolled E11.65 [facility] [id number] [place] [address] 48581- 5906 Dec, Cutaneous abscess of unspecified hand L02.519 and Cellulitis of unspecified part of limb L03.119 [facility] [id number] [place] [address] 32137 -9130 Dec, Acute pain of left wrist M25.532 and Closed fracture of left wrist, initial encounter S62.102A [facility] [id number] [place] [address] 57265- 3527 Dec, [facility] [id number] [place] [address] 34448- 8486 Dec, [facility] [id number] [place] [address] 24519- 4668 Oct, [facility] [id number] [place] [address] 94165- 6767 Oct, [facility] [id number] [place] [address] 76781- 3068 Aug, [facility] [id number] [place] [address] 92942- 4790 July, Generalized anxiety disorder F41.1 ; Bipolar II disorder F31.81 ; Attention deficit hyperactivity disorder, combined type F90.2 ; Cannabis abuse F12.10 and Amphetamine and psychostimulant abuse, 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 [facility] [id number] [place] [address] 37759- 5669 Mar, Type 2 diabetes mellitus with diabetic nephropathy E11.21 [facility] [id number] [place] [address] 72803- 3062 Mar, Anxiety F41.9 ; Diabetes type 2, uncontrolled E11.65 and Tooth infection K04.7 [facility] [address], [place] [address] 7374 Mar, Type 2 diabetes mellitus with diabetic nephropathy E11.21 [facility] [address] [place] [address] 4366 Feb, [facility] [address], [place] [address] 0906 Jan, Type 2 diabetes mellitus with diabetic nephropathy E11.21 [facility] [address] [place] [address] 9590 Dec, Type 2 diabetes mellitus with diabetic nephropathy E11.21 [facility] [address] [id number], [place] [address] 0466 Nov, Mood disorder F39 and Type 2 diabetes mellitus with hyperglycemia E11.65 [facility] [address], [place] [address] 1530 Oct, Mood disorder F39 and Type 2 diabetes mellitus with hyperglycemia E11.65 [facility] [address], [place] [address] 1907 Sep, Type 2 diabetes mellitus with diabetic nephropathy E11.21 and Seizures R56.9 [facility] [address], [place] [address] 5777 Sep, [facility] [address], [place] [address]- 4562 Sep, [facility] [address], [place] [address]- 1146 Sep, [facility] [address], [place] [address] 5463 July, [facility] [address] [place] [address]- 2963 Jun, [facility] [address], [place] [address]- 3137 Jun, [facility] [address], [place] [address]- 1280 Jun, Uncontrolled type 2 diabetes mellitus without complication, without long-term 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 E11.65 [facility] [id number] [place] [address] 37783- 0533 May, [facility] [id number] [place] [address] 80194- 6378 May, [facility] [id number] [place] [address] 58139- 0099 Mar, Generalized anxiety disorder F41.1 ; Major depression F32.9 ; Attention deficit hyperactivity disorder, combined type F90.2 ; Amphetamine and psychostimulant abuse, 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 and Cannabis abuse F12.10 [facility] [id number] [place] [address] 34577- 0001 Mar, Type 2 diabetes mellitus with diabetic nephropathy E11.21 ; Type 2 diabetes mellitus with hyperglycemia E11.65 and MCC 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.4 [facility] [id number] [place] [address] 87064- 1165 Feb, [facility] [id number] [place] [address] 78002- 3101 Jan, [facility] [id number] [place] [address] 01245- 5398 Dec, [facility] [id number] [place] [address] 30871- 4592 Dec, Generalized anxiety disorder F41.1 ; Attention deficit hyperactivity disorder, combined type F90.2 and Recurrent major depressive disorder, in partial remission F33.41 [facility] [id number] [place] [address] 70414- 9776 Dec, Diabetes type 2, uncontrolled E11.65 [facility] [id number] [place] [address] 88377- 3919 Dec, [facility] [id number] [place] [address] 31888- 4796 Dec, [facility] [address] 7355 Dec, [facility] [address] [address] Nov, [facility] [address] [address] Oct, Noncompliance w/medication treatment due to intermit use of medication Z91.14 [facility] [address] 6704 Oct, Noncompliance w/medication treatment due to intermit use of medication Z91.14 [facility] [address], [place] [address]- 5202 Oct, [facility] [address], [place] [address]- 8053 Oct, [facility] [address], [place] [address]- 7728 Oct, [facility] [address], [place] [address]- 6253 Sep, Diabetic polyneuropathy associated with type 2 diabetes mellitus E11.42 [facility] [address], [place] [address]- 0925 Sep, [facility] [address], [place] [address]- 2142 Aug, Diabetes type 2, uncontrolled E11.65 and Diabetic polyneuropathy associated with type 2 diabetes mellitus E11.42 [facility] [address] 2997 Aug, [facility] [address], [place] [address]- 5842 Aug, [facility] [address], [place] [address]- 4478 July, Generalized anxiety disorder F41.1 and Major depression F32.9 [facility] [id number] [place] [address] 64812- 9247 July, [facility] [id number] [place] [address] 10432- 8520 Jun, [facility] [id number] [place] [address] 44656- 7046 May, MCC 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.899 ; Diabetes type 2, uncontrolled E11.65 ; Gastroenteritis K52.9 ; Malaise R53.81 and Dysrhythmia I49.9 [facility] [address] 34662- 5709 May, [facility] [id number] [place] [address] 26302- 6269 May, [facility] [id number] [place] [address] 18490- 5737 Apr, [facility] [id number] [place] [address] 24539- 6278 Apr, Type 2 diabetes mellitus with hyperglycemia E11.65 [facility] [id number] [place] [address] 60378- 4672 Apr, [facility] [id number] [place] [address] 64046- 5604 Apr, MCC 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.899 ; Generalized anxiety disorder F41.1 ; Attention deficit hyperactivity disorder, combined type F90.2 and Major depression F32.9 [facility] [id number] [place] [address] 34595- 4237 Mar, [facility] [id number] [place] [address] 62563- 1590 Mar, [facility] [id number] [place] [address] 10802- 5968 Mar, [facility] [id number], [place] [address]- 9909 Mar, [facility] [address] [facility] [id number], [place] [address]- 1555 Mar, [facility] [address] [facility] [id number] [place] [address]- 8586 Feb, [facility] [address], [place] [address]- 1304 Feb, [facility] [address] [facility] [id number] [place] [address]- 0593 Feb, [facility] [id number] [place] [address] 97294- 2826 Jan, Diabetes type 2, uncontrolled E11.65 [facility] [address], [place] [address]- 8738 Jan, [facility] [id number] [place] [address] 62984- 2123 Jan, [facility] [id number], [place] [address]- 3678 Jan, [facility] [address], [place] [address]- 9957 Dec, [facility] [address], [place] [address]- 8376 Dec, [facility] [address], [place] [address]- 4274 Dec, [facility] [id number], [place] [address]- 0245 Dec, Type 2 diabetes mellitus with diabetic nephropathy E11.21 [facility] [id number] 9671 Dec, [facility] [id number], [place] [address]- 6234 Dec, [facility] [address], [place] [address]- 5980 14 Dec, 2014 [facility] [id number] [place] [address] 60314- 0707 Dec, Attention deficit hyperactivity disorder, combined type F90.2 ; Generalized anxiety disorder F41.1 and Major depression F32.9 [facility] [id number] [place] [address] 141353- 9102 Dec, Type 2 diabetes mellitus with diabetic nephropathy E11.21 and Type 2 diabetes mellitus with hyperglycemia E11.65 [facility] [id number] [place] [address] 14720- 1615 30 Nov, 2014 [facility] [id number] [place] [address] 04777- 7693 17 Nov, 2014 [facility] [id number] [place] [address] 46665- 1281 Nov, [facility] [id number] [place] [address] 04230- 6352 Oct, [facility] [id number] [place] [address] 54016- 8780 Oct, [facility] [id number] [place] [address] 55382- 2942 Oct, [facility] [address], [place] [address]- 0435 Sep, Hepatitis C 070.70 and URI, acute 465.9 [facility] [address], [place] [address]- 3225 Sep, [facility] [id number] [place] [address] 97144- 3705 Sep, [facility] [address], [place] [address]- 5606 Sep, [facility] [id number] [place] [address] 944506- 7181 Aug, [facility] [address], [place] [address]- 4808 Aug, [facility] [id number] [place] [address] 74567- 7873 Aug, [facility] [address], [place] [address]- 9443 Aug, [facility] [id number] [place] [address] 28379- 9557 Aug, [facility] [id number] [place] [address] 02360- 0228 Aug, [facility] [id number] [place] [address] 65128- 8699 Aug, Generalized anxiety disorder 300.02 ; Attention deficit disorder of childhood without mention of hyperactivity 314.00 and Major depressive disorder, recurrent episode, severe, specified as with psychotic behavior 296.34 [facility] [address], [place] [address]- 8338 July, Diabetes with renal manifestations, type II or unspecified type, uncontrolled 250.42 [facility] [id number] [place] [address] 93004- 6333 July, [facility] [address], [place] [address]- 4598 July, [facility] [address], [place] [address]- 6573 July, [facility] [address], [place] [address]- 9742 Jun, [facility] [id number] [place] [address] 57947- 7915 Jun, [facility] [address] 1132 Jun, [facility] [address], [place] [address]- 4987 May, [facility] [place] [facility] [address] [id number] [place] [address]- 6304 30 May, 2014 [facility] [place] [facility] [address] [id number] [place] [address]- 4970 30 May, 2014 [facility] [place] [facility] [address] [id number] [place] [address]- 9530 30 May, 2014 [facility] [place] [facility] [address] [id number] [place] [address]- 5675 May, [facility] [place] [facility] [address] [id number] [place] [address]- 5647 May, [facility] [place] [facility] [address] [id number] [place] [address]- 8773 May, [facility] [place] [facility] [address] [id number] [place] [address]- 1821 May, [facility] [place] [facility] [address] [id number] [place] [address]- 7402 May, [facility] [place] [facility] [address] [id number] [place] [address]- 5085 18 May, 2014 [facility] [place] [facility] [address] [id number] [place] [address]- 6163 May, [facility] [place] [facility] [address] [id number] [place] [address]- 8997 May, [facility] [place] [facility] [address] [id number] [place] [address]- 3914 May, [facility] [place] [facility] [address] [id number] [place] [address]- 0610 May, [facility] [place] [facility] [address] [id number] [place] [address]- 5964 Apr, [facility] [place] [facility] [address] [id number] [place] [address]- 9158 Apr, [facility] [place] [facility] [address] [id number] [place] [address]- 4892 Apr, 2014 [facility] [place] [facility] [address] [id number] [place] [address]- 3966 Apr, [facility] [place] [facility] [address] [id number] [place] [address]- 9456 Apr, 2014 [facility] [place] [facility] [address] [id number] [place] [address]- 5136 Apr, 2014 [facility] [place] [facility] [address] [id number] [place] [address]- 0638 Apr, [facility] [place] [facility] [address] [id number] [place] [address]- 7914 Apr, [facility] [place] [facility] [address] [id number] [place] [address]- 7236 Mar, [facility] [place] [facility] [address] [id number] [place] [address]- 6976 Mar, [facility] [place] [facility] [address] [id number] [place] [address]- 3247 Mar, [facility] [place] [facility] [address] [id number] [place] [address]- 7485 Mar, [facility] [place] [facility] [address] [id number] [place] [address]- 8874 Mar, [facility] [place] [facility] [address] [id number] [place] [address]- 2782 Mar, [facility] [place] [facility] [address] [id number] [place] [address]- 1959 Mar, [facility] [place] [facility] [address] [id number] [place] [address]- 4328 Mar, [facility] [place] [facility] [address] [id number] [place] [address]- 6602 Mar, [facility] [place] [facility] [address] [id number] [place] [address]- 6260 Mar, [facility] [place] [facility] [address] [id number] [place] [address]- 3230 Mar, [facility] [place] [facility] [address] [id number] [place] [address]- 6293 Mar, [facility] [place] [facility] [address] [id number] [place] [address]- 2480 Mar, [facility] [place] [facility] [address] [id number] [place] [address]- 2522 Mar, [facility] [address] [id number] [place] [address]- 2846 Mar, [facility] [place] [facility] [address] [id number] [place] [address]- 1030 Mar, [facility] [address] [id number] [place] [address]- 8329 Feb, [facility] [address] [id number] [place] [address]- 6264 Feb, [facility] [place] [facility] [address] [id number] [place] [address]- 2939 Feb, [facility] [place] [facility] [address] [id number] [place] [address]- 0807 Feb, [facility] [place] [facility] [address] [id number] [place] [address]- 8344 Feb, [facility] [place] [facility] [address] [id number] [place] [address]- 5093 Feb, [facility] [place] [facility] [address] [id number] [place] [address]- 3149 15 Feb, 2014 [facility] [place] [facility] [address] [id number] [place] [address]- 1601 15 Feb, 2014 [facility] [place] [facility] [address] [id number] [place] [address]- 3206 08 Feb, 2014 [facility] [place] [facility] [address] [id number] [place] [address]- 4645 Feb, [facility] [place] [facility] [address] [id number] [place] [address]- 7283 Jan, [facility] [place] [facility] [address] [id number] [place] [address]- 3463 Jan, [facility] [place] [facility] [address] [id number] [place] [address]- 2534 Jan, [facility] [place] [facility] [address] [id number] [place] [address]- 4816 Jan, [facility] [place] [facility] [address] [id number] [place] [address]- 3317 Jan, [facility] [place] [facility] [address] [id number] [place] [address]- 7072 Jan, [facility] [place] [facility] [address] [id number] [place] [address]- 5022 Jan, [facility] [place] [facility] [address] [id number] [place] [address]- 9344 Jan, [facility] [place] [facility] [address] [id number] [place] [address]- 0594 Jan, [facility] [place] [facility] [address] [id number] [place] [address]- 6177 Dec, [facility] [place] [facility] [address] [id number], [place] [address]- 3089 Dec, [facility] [place] [facility] [address] [id number], [place] [address]- 0285 Dec, [facility] [place] [facility] [address] [id number] [place] [address] Dec, [facility] [place] [facility] [address] [id number], [place] [address] Dec, [facility] [place] [facility] [address] [id number] [place] [address] Dec, [facility] [place] [facility] [address] [id number] [place] [address] Nov, 2013 [facility] [place] [facility] [address] [id number] [place] [address] Nov, 2013 [facility] [place] [facility] [address] [id number] [place] [address] Nov, 2013 [facility] [place] [facility] [address] [id number] [place] [address] Nov, 2013 [facility] [place] [facility] [address] [id number] [place] [address] Nov, 2013 [facility] [place] [facility] [address] [id number] [place] [address] Nov, 2013 [facility] [place] [facility] [address] [id number] [place] [address] Nov, 2013 [facility] [place] [facility] [address] [id number] [place] [address] Nov, 2013 [facility] [place] [facility] [address] [id number] [place] [address] Oct, [facility] [place] [facility] [address] [id number] [place] [address] Oct, [facility] [place] [facility] [address] [id number] [place] [address] Oct, [facility] [place] [facility] [address] [id number] [place] [address] Oct, [facility] [place] [facility] [address] [id number] [place] [address] Oct, [facility] [place] [facility] [address] [id number] [place] [address] Oct, [facility] [place] [facility] [address] [id number] [place] [address] Sep, [facility] [place] [facility] [address] [id number] [place] [address] Sep, [facility] [place] [facility] [address] [id number] [place] [address] Sep, [facility] [place] [facility] [address] [id number] [place] [address] Aug, [facility] [place] [facility] [address] [id number] [place] [address] Aug, [facility] [place] [facility] [address] [id number] [place] [address] July, [facility] [place] [facility] [address] [id number] [place] [address] July, [facility] [place] [facility] [address] [id number] [place] [address] Jun, [facility] [place] [facility] [address] [id number] [place] [address] Jun, [facility] [place] [facility] [address] [id number] [place] [address] Jun, [facility] [place] [facility] [address] [id number] [place] [address] Jun, [facility] [place] [facility] [address] [id number] [place] [address] Jun, [facility] [place] [facility] [address] [id number] [place] [address] Jun, [facility] [place] [facility] [address] [id number] [place] [address] Jun, [facility] [place] [facility] [address] [id number] [place] [address] Jun, [facility] [place] [facility] [address] [id number] [place] [address] Jun, [facility] [place] [facility] [address] [id number] [place] [address] Jun, [facility] [place] [facility] [address] [id number] [place] [address] Jun, [facility] [place] [facility] [address] [id number] [place] [address] Jun, [facility] [place] [facility] [address] [id number] [place] [address] May, [facility] [place] [facility] [address] [facility] [id number] [place] [address] May, [facility] [place] [facility] [address] [facility] [id number] [place] [address] 18 May, 2013 [facility] [place] [facility] [address] [id number] [place] [address] May, [facility] [place] [facility] [address] [facility] [id number] [place] [address] May, [facility] [place] [facility] [address] [id number] [place] [address] Apr, [facility] [place] [facility] [address] [id number] [place] [address] Apr, [facility] [place] [facility] [address] [facility] [id number] [place] [address] 07 Apr, 2013 [facility] [place] [facility] [address] [facility] [id number] [place] [address] Apr, [facility] [place] [facility] [address] [facility] [id number] [place] [address] Mar, [facility] [place] [facility] [address] [id number] [place] [address] Mar, [facility] [place] [facility] [address] [id number] [place] [address] Mar, [facility] [place] [facility] [address] [facility] [id number] [place] [address] Mar, [facility] [place] [facility] [address] [facility] [id number] [place] [address] Feb, [facility] [place] [facility] [address] [id number] [place] [address] 39[address] Feb, [facility] [address] [id number] [place] [address] Feb, [facility] [place] [facility] [address] [id number] [place] [address] Feb, [facility] [place] [facility] [address] [id number] [place] [address] Jan, [facility] [address] [id number] [place] [address] Jan, [facility] [place] [facility] [address] [id number] [place] [address] Jan, [facility] [address] [id number] [place] [address] Jan, [facility] [address] [id number] [place] [address] Dec, [facility] [place] [facility] [address] [id number] [place] [address] 27 Nov, 2012 [facility] [place] [facility] [address] [id number] [place] [address] 23 Nov, 2012 [facility] [place] [facility] [address] [id number] [place] [address] 23 Nov, 2012 [facility] [place] [facility] [address] [id number] [place] [address] 10 Nov, 2012 [facility] [place] [facility] [address] [id number] [place] [address] 09 Nov, 2012 [facility] [place] [facility] [address] [id number] [place] [address] 15 Oct, 2012 [facility] [place] [facility] [address] [id number] [place] [address] 70[address] 13 Oct, 2012 [facility] [place] [facility] [address] [id number] [place] [address] Sep, [facility] [address] [id number] [place] [address] 4084 Sep, [facility] [place] [facility] [address] [id number] [place] [address] 2010 Sep, [facility] [place] [facility] [address] [id number] [place] [address] Sep, [facility] [place] [facility] [address] [id number] [place] [address] Sep, [facility] [place] [facility] [address] [id number] [place] [address] 1370 Aug, [facility] [place] [facility] [address] [id number] [place] [address] Aug, [facility] [place] [facility] [address] [id number] [place] [address] Aug, [facility] [place] [facility] [address] [id number] [place] [address] 8[address] Aug, [facility] [place] [facility] [address] [id number] [place] [address]34 July, [facility] [place] [facility] [address] [id number] [place] [address] July, [facility] [place] [facility] [address] [id number] [place] [address] 1809 July, [facility] [place] [facility] [address] [id number] [place] [address] 2071 Jun, [facility] [place] [facility] [address] [id number] [place] [address] May, [facility] [place] [facility] [address] [id number] [place] [address] May, [facility] [place] [facility] [address] [id number] [place] [address] Apr, [facility] [place] [facility] [address] [id number] [place] [address] Mar, [facility] [address] [id number] [place] [address] Mar, [facility] [address] [id number] [place] [address] 2546 Mar, [facility] [address] [id number] [place] [address] 8936 Mar, [facility] [address] [id number] [place] [address] 5974 Feb, [facility] [address] [id number] [place] [address] 4860 Feb, [facility] [address] [id number] [place] [address] 5971 Feb, [facility] [address] [id number] [place] [address] 5164 Feb, [facility] [address] [id number] [place] [address] 8587 Jan, [facility] [address] [id number] [place] [address] Jan, [facility] [address] [id number] [place] [address] 4107 Sep, [facility] [address] [id number] [place] [address] 2546 Sep, [facility] [address] [id number] [place] [address] Aug, [facility] [place] [facility] [address] [id number] [place] [address] 2546 Aug, [facility] [address] [id number] [place] [address] 2546 Jun, [facility] [address] [id number] [place] [address] 1396 May, [facility] [address] [id number] [address] May, [facility] [id number] [address] Mar, [facility] [address] [id number] [address] Mar, [facility] [id number] [address] Feb, [facility] [address] [facility] [id number], [place] [address] Feb, [facility] [id number], [place] [address] 79[address] Feb, [facility] [id number], [place] [address] Dec, [facility] [id number], [place] [address] Aug, [facility] [id number], [place] [address] May, [facility] [id number], [place] [address] Mar, [facility] [address] [id number], [place] [address] Oct, [facility] [address] [id number], [place] [address] Sep, [facility] [address] [id number], [place] [address] Jun, IMMUNIZATIONS No Known Immunizations SOCIAL HISTORY Never Assessed REASON FOR VISIT Diabetes-PHUC duran PLAN OF CARE Activity Details Follow Up 4 Weeks Reason:dm2 uncontrolled. VITAL SIGNS Height 77 in 2018-01-09 Weight 247 lbs 2018-01-09 Temperature 97 degrees Fahrenheit 2018-01-09 Heart Rate 88 bpm 2018-01-09 Respiratory Rate 16 2018-01-09 BMI 29.29 kg/m2 2018-01-09 Blood pressure systolic 116 mmHg 2018-01-09 Blood pressure diastolic 76 mmHg 2018-01-09 MEDICATIONS Medication Instructions Dosage Frequency Start Date End Date Duration Status Allison Delica Lancets 33G 33 TEST TWO TIMES A DAY 50 Active KayleeTouch Ultra Test - TEST TWO TIMES A DAY 25 Active Lexapro 20 mg Orally Once a day 1 tablet 24h Active Metformin HCl 1000 MG TAKE ONE TABLET 12h 30 Active Amlodipine Besylate 10 mg 1 tablet 24h 30 Active Keppra 1000 MG TAKE ONE TABLET BY MOUTH TWICE DAILY 30 Active Lantus SoloStar 100 UNIT/ML Subcutaneous twice a day 42 units 12h Oct, Active Aspirin 325 mg take 1 tablet (325 mg) by oral route once daily Jun, Active Atorvastatin Calcium 10 mg 1 tablet 24h 30 Active Potassium Chloride Nessa ER 10 MEQ 1 tablet 24h 30 Active RESULTS Name Result Date Reference Range A1C (IN HOUSE) 2018-01-09 A1C IN HOUSE 12.1 4.3 - 5.6 % Previous A1c 14.0 Lot [id number] Exp date PROCEDURES Procedure Date Ordered Result Body Site [facility] VISIT ESTABLISHED PATIENT Jan 09, 2018 GLYCATED HEMOGLOBIN TEST Jan 09, 2018 INSTRUCTIONS MEDICATIONS ADMINISTERED No Known Medications MEDICAL [...]
--- OUTSIDE RECORDS SUMMARY | 2018-02-25 23:35 | XMS REPORT ---
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 Active 036465526 Problem retirement 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.4 Active 715565896 Problem Type 2 diabetes mellitus with diabetic nephropathy E11.21 Active 706443842 Problem Type 2 diabetes mellitus with hyperglycemia E11.65 Active 789385408 Problem Uncontrolled type 2 diabetes mellitus without complication, without long-term 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 E11.65 Active 441526701 Problem Diabetes type 2, uncontrolled E11.65 Active 806663540 Problem Noncompliance of patient with dietary regimen Z91.11 Active 606778430 Problem Mood disorder F39 Active 46875997 Problem Attention deficit hyperactivity disorder (ADHD), predominantly inattentive type F90.0 Active 37367487 Problem Major depression, chronic F32.9 Active 952171174 Problem Generalized anxiety disorder F41.1 Active 04206274 Problem Noncompliance w/medication treatment due to intermit use of medication Z91.14 Active 654462692 Problem Recurrent major depressive disorder, in partial remission F33.41 Active 88050881 Problem 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 [id number] [place] [address] 97884- 3495 Dec, [facility] [id number] [place] [address] 86791- 6564 Dec, Cutaneous abscess of unspecified hand L02.519 and Cellulitis of unspecified part of limb L03.119 [facility] [address] [address] Dec, Acute pain of left wrist M25.532 and Closed fracture of left wrist, initial encounter S62.102A [facility] [address] [address]- [address]80 Dec, [facility] [address] [address]47- 4885 Dec, [facility] [address] [address]12- 5639 Oct, [facility] [id number] [place] [address] 00707- 5815 Oct, [facility] [id number] [place] [address] 87998- 3423 Aug, 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 [address] 28407- 4270 Mar, Type 2 diabetes mellitus with diabetic nephropathy E11.21 [facility] [id number] [place] [address] 54493- 7987 Mar, Anxiety F41.9 ; Diabetes type 2, uncontrolled E11.65 and Tooth infection K04.7 [facility] [address], [place] [address] 8178 Mar, Type 2 diabetes mellitus with diabetic nephropathy E11.21 [facility] [address] [place] [address] 26[address] Feb, [facility] [address], [place] [address] 2799 Jan, Type 2 diabetes mellitus with diabetic nephropathy E11.21 [facility] [address] [place] [address]- 5075 Dec, Type 2 diabetes mellitus with diabetic nephropathy E11.21 [facility] [address] 8794 Nov, Mood disorder F39 and Type 2 diabetes mellitus with hyperglycemia E11.65 [facility] [address], [place] [address]- 5766 Oct, Mood disorder F39 and Type 2 diabetes mellitus with hyperglycemia E11.65 [facility] [address], [place] [address]- 6486 Sep, Type 2 diabetes mellitus with diabetic nephropathy E11.[address] [facility] [address], [place] [address] 9063 Sep, [facility] [address], [place] [address]- [address]25 Sep, [facility] [address], [place] [address]- 1592 Sep, [facility] [address], [place] [address] 8568 July, [facility] [address], [place] [address]- 6645 Jun, [facility] [address], [place] [address]- 3830 Jun, [facility] [id number] [place] [address] 58435- 1881 Jun, Uncontrolled type 2 diabetes mellitus without complication, without long-term 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 E11.65 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 and Cannabis abuse F12.10 [facility] [id number] [place] [address] 59027- 5210 Mar, Type 2 diabetes mellitus with diabetic nephropathy E11.21 ; Type 2 diabetes mellitus with hyperglycemia E11.65 and retirement 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.4 [facility] [id number] [place] [address] 05589- 9310 Feb, [facility] [id number] [place] [address] 85202- 8298 Jan, [facility] [id number] [place] [address] 07623- 1087 Dec, [facility] [id number] [place] [address] 95121- 4728 Dec, Generalized anxiety disorder F41.1 ; Attention deficit hyperactivity disorder, combined type F90.2 and Recurrent major depressive disorder, in partial remission F33.41 [facility] [id number] [place] [address] 54198- 0826 13 Dec, 2015 Diabetes type 2, uncontrolled E11.65 [facility] [id number] [place] [address] 92100- 7429 Dec, [facility] [id number] [place] [address] 87226- 6010 Dec, [facility] [id number] [address]82 Dec, [facility] [address], [place] [address]- 6176 Nov, [facility] [address] 6664 Oct, Noncompliance w/medication treatment due to intermit use of medication Z91.14 [facility] [address] [facility] [id number] [address] 6728 Oct, Noncompliance w/medication treatment due to intermit use of medication Z91.14 [facility] [address] 3480 Oct, [facility] [address], [place] [address]- 5668 Oct, [facility] [address], [place] [address]- 7145 Oct, [facility] [address], [place] [address]- 1418 Sep, Diabetic polyneuropathy associated with type [address] [facility] [address], [place] [address]- 5140 Sep, [facility] [address], [place] [address]- 3144 Aug, Diabetes type 2, uncontrolled E11.65 and Diabetic polyneuropathy associated with type [address] [facility] [address], [place] [address]- 0085 Aug, [facility] [address] 0968 Aug, [facility] [address], [place] [address]- 1920 July, Generalized anxiety disorder F41.1 and Major depression F32.9 [facility] [address], [place] [address]- 5813 July, [facility] [id number] [place] [address] 36752- 8255 Jun, [facility] [id number] [place] [address] 80423- 4099 May, retirement 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.899 ; Diabetes type 2, uncontrolled E11.65 ; Gastroenteritis K52.9 ; Malaise R53.[address] [facility] [id number] [place] [address] 67890- 9318 May, [facility] [id number] [place] [address] 66180- 5161 May, [facility] [id number] [place] [address] 02988- 5218 Apr, [facility] [id number] [place] [address] 29661- 7063 Apr, Type 2 diabetes mellitus with hyperglycemia E11.65 [facility] [address] [place] [address] 43837- 8364 Apr, [facility] [address], [place] [address]- 0070 Apr, retirement 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.899 ; Generalized anxiety disorder F41.1 ; Attention deficit hyperactivity disorder, combined type F90.2 and Major depression F32.9 [facility] [address], [place] [address]- 8422 Mar, [facility] [id number] [place] [address] 02723- 1334 Mar, [facility] [address], [place] [address]- 9354 Mar, [facility] [id number] [address]- 5107 Mar, [facility] [address] [facility] [id number], [place] [address]- 9920 Mar, [facility] [address] [facility] [id number], [place] [address]- 8718 Feb, [facility] [address] [facility] [id number] [place] [address] 02010- 8231 Feb, [facility] [address] [facility] [id number], [place] [address]- 6904 Feb, [facility] [id number] [place] [address] 71781- 7731 Jan, Diabetes type [address], [address] [facility] [address] [place] [address] 83380- 0224 Jan, [facility] [id number] [place] [address] 69199- 7051 Jan, [facility] [address], [place] [address]- 0558 Jan, [facility] [address], [place] [address]- 2327 Dec, [facility] [address], [place] [address]- 3915 Dec, [facility] [address], [place] [address]- 3486 Dec, [facility] [id number], [place] [address]- 4112 Dec, Type 2 diabetes mellitus with diabetic nephropathy E11.21 [facility] [address], [place] [address]- 0368 Dec, [facility] [address], [place] [address]- 2601 Dec, [facility] [id number], [place] [address]- 6963 [address], [address] [facility] [id number] [place] [address] 96338- 4666 Dec, Attention deficit hyperactivity disorder, combined type F90.2 ; Generalized anxiety disorder F41.1 and Major depression F32.9 [facility] [id number] [place] [address] 510794- 8012 Dec, Type 2 diabetes mellitus with diabetic nephropathy E11.21 and Type 2 diabetes mellitus with hyperglycemia E11.65 [facility] [id number] [place] [address] 37342- 0403 30 Nov, 2014 [facility] [id number] [place] [address] 78291- 6933 17 Nov, 2014 [facility] [id number] [place] [address] 05577- 7123 16 Nov, 2014 [facility] [id number] [place] [address] 05874- 4492 Oct, [facility] [id number] [place] [address] 02298- 6424 Oct, [facility] [id number] [place] [address] 02016- 6328 Oct, [facility] [id number] [place] [address] 38992- 2836 Sep, Hepatitis C 070.70 and URI, acute 465.9 [facility] [address], [place] [address]- 2502 Sep, [facility] [id number] [place] [address] 97553- 2318 Sep, [facility] [id number] [place] [address] 42104- 2822 Sep, [facility] [id number] [place] [address] 38504- 0245 Aug, [facility] [address], [place] [address]- 9742 Aug, [facility] [id number] [place] [address] 13162- 1644 Aug, [facility] [address] [place] [address] 82287- 7097 Aug, [facility] [id number] [place] [address] 64687- 3077 Aug, [facility] [address] [place] [address] 07043- 8957 Aug, [facility] [id number] [place] [address] 95438- 9301 Aug, Generalized anxiety disorder 300.02 ; Attention deficit disorder of childhood without mention of hyperactivity 314.00 and Major depressive disorder, recurrent episode, severe, specified as with psychotic behavior 296.34 [facility] [id number] [place] [address] 74967- 9771 July, Diabetes with renal manifestations, type II or unspecified type, uncontrolled 250.42 [facility] [id number] [place] [address] 76340- 2063 July, [facility] [id number] [place] [address] 17448- 1336 July, [facility] [address], [place] [address]- 5687 July, [facility] [address], [place] [address]- 0522 Jun, [facility] [id number] [place] [address] 80815- 5925 Jun, [facility] [id number] [place] [address] 69244- 8011 Jun, [facility] [address], [place] [address]- 1719 May, [facility] [place] [facility] [address] [id number] [place] [address]- 8154 30 May, 2014 [facility] [place] [facility] [address] [id number] [place] [address]- 6091 30 May, 2014 [facility] [place] [facility] [address] [id number] [place] [address]- 9856 30 May, 2014 [facility] [place] [facility] [address] [id number] [place] [address]- 5586 May, [facility] [place] [facility] [address] [id number] [place] [address]- 7679 May, [facility] [place] [facility] [address] [id number] [place] [address]- 5057 May, [facility] [place] [facility] [address] [id number] [place] [address]- 9224 May, [facility] [place] [facility] [address] [id number] [place] [address]- 9277 18 May, 2014 [facility] [place] [facility] [address] [id number] [place] [address]- 1662 18 May, 2014 [facility] [place] [facility] [address] [id number] [place] [address]- 1234 May, [facility] [place] [facility] [address] [id number] [place] [address]- 8689 May, [facility] [place] [facility] [address] [id number] [place] [address]- 6600 11 May, 2014 [facility] [place] [facility] [address] [id number] [place] [address]- 1763 May, [facility] [place] [facility] [address] [id number] [place] [address]- 6894 Apr, [facility] [place] [facility] [address] [id number] [place] [address]- 5574 Apr, [facility] [place] [facility] [address] [id number] [place] [address]- 1769 Apr, [facility] [place] [facility] [address] [id number] [place] [address]- 2051 Apr, [facility] [place] [facility] [address] [id number] [place] 1556 Apr, [facility] [place] [facility] [address] [id number] [place] [address]- 3429 Apr, [facility] [place] [facility] [address] [id number] [place] [address]- 3425 Apr, [facility] [place] [facility] [address] [id number] [place] [address]- 0542 Apr, [facility] [place] [facility] [address] [id number] [place] [address]- 6382 Mar, [facility] [place] [facility] [address] [id number] [place] [address]- 6366 Mar, [facility] [place] [facility] [address] [id number] [place] [address]- 5706 Mar, [facility] [place] [facility] [address] [id number] [place] [address]- 7269 Mar, [facility] [place] [facility] [address] [id number] [place] [address]- 3849 Mar, [facility] [place] [facility] [address] [id number] [place] [address]- 0095 Mar, [facility] [place] [facility] [address] [id number], [place] [address]- 8019 Mar, [facility] [place] [facility] [address] [id number] [place] [address]- 8457 Mar, [facility] [place] [facility] [address] [id number] [place] [address]- 5977 Mar, [facility] [place] [facility] [address] [id number] [place] [address]- 3864 Mar, [facility] [place] [facility] [address] [id number] [place] [address]- 3936 16 Mar, 2014 [facility] [place] [facility] [address] [id number] [place] [address]- 5334 16 Mar, 2014 [facility] [place] [facility] [address] [id number] [place] [address]- 9456 Mar, [facility] [place] [facility] [address] [id number] [place] [address]- 3912 Mar, [facility] [place] [facility] [address] [id number] [place] [address]- 1234 Mar, [facility] [place] [facility] [address] [id number] [place] [address]- 9891 Mar, [facility] [place] [facility] [address] [id number] [place] [address]- 0256 Feb, [facility] [place] [facility] [address] [id number] [place] [address]- 2448 Feb, [facility] [place] [facility] [address] [id number] [place] [address]- 2029 Feb, [facility] [place] [facility] [address] [id number] [place] [address]- 1208 Feb, [facility] [place] [facility] [address] [id number] [place] [address]- 5068 Feb, [facility] [place] [facility] [address] [id number] [place] [address]- 8587 Feb, [facility] [place] [facility] [address] [id number] [place] 3205 15 Feb, 2014 [facility] [place] [facility] [address] [id number] [place] 5786 15 Feb, 2014 [facility] [place] [facility] [address] [id number] [place] [address]- 5935 08 Feb, 2014 [facility] [place] [facility] [address] [id number] [place] [address]- 9072 Feb, [facility] [place] [facility] [address] [id number] [place] [address]- 9532 Jan, [facility] [place] [facility] [address] [id number] [place] [address] Jan, [facility] [place] [facility] [address] [id number] [place] [address] Jan, [facility] [place] [facility] [address] [id number] [place] [address] Jan, [facility] [place] [facility] [address] [id number] [place] [address] Jan, [facility] [place] [facility] [address] [id number] [place] [address] Jan, [facility] [place] [facility] [address] [id number] [place] [address] Jan, [facility] [place] [facility] [address] [id number] [place] [address] Jan, [facility] [place] [facility] [address] [id number] [place] [address] Jan, [facility] [place] [facility] [address] [id number] [place] [address] Dec, [facility] [place] [facility] [address] [id number], [place] [address] Dec, [facility] [place] [facility] [address] [id number], [place] [address] Dec, [facility] [place] [facility] [address] [id number], [place] [address] Dec, [facility] [place] [facility] [address] [id number], [place] [address] Dec, [facility] [place] [facility] [address] [id number], [place] [address] Dec, [facility] [place] [facility] [address] [id number] [place] [address] Nov, 2013 [facility] [place] [facility] [address] [id number] [place] [address] Nov, 2013 [facility] [place] [facility] [address] [id number] [place] [address] Nov, 2013 [facility] [place] [facility] [address] [id number] [place] [address] Nov, 2013 [facility] [place] [facility] [address] [id number] [place] [address] Nov, 2013 [facility] [place] [facility] [address] [id number] [place] [address] Nov, 2013 [facility] [place] [facility] [address] [id number] [place] [address] Nov, 2013 [facility] [place] [facility] [address] [id number] [place] [address] Nov, 2013 [facility] [place] [facility] [address] [id number] [place] [address] Oct, [facility] [place] [facility] [address] [id number] [place] [address] Oct, [facility] [place] [facility] [address] [id number] [place] [address] Oct, [facility] [place] [facility] [address] [id number] [place] [address] Oct, [facility] [place] [facility] [address] [id number] [place] [address] Oct, [facility] [place] [facility] [address] [id number] [place] [address] 164[address] Oct, [facility] [place] [facility] [address] [id number] [place] [address] Sep, [facility] [place] [facility] [address] [id number] [place] [address] Sep, [facility] [place] [facility] [address] [id number] [place] [address] Sep, [facility] [place] [facility] [address] [id number] [place] [address] Aug, [facility] [place] [facility] [address] [id number] [place] [address] Aug, [facility] [place] [facility] [address] [id number] [place] [address] July, [facility] [place] [facility] [address] [id number] [place] [address] July, [facility] [place] [facility] [address] [id number] [place] [address] Jun, [facility] [place] [facility] [address] [id number] [place] [address] Jun, [facility] [place] [facility] [address] [id number] [place] [address] Jun, [facility] [place] [facility] [address] [id number] [place] [address] Jun, [facility] [place] [facility] [address] [id number] [place] [address] Jun, [facility] [facility] [address] [id number] [place] [address] Jun, [facility] [place] [facility] [address] [id number] [place] [address] Jun, [facility] [place] [facility] [address] [id number] [place] [address] Jun, [facility] [place] [facility] [address] [id number] [place] [address] Jun, [facility] [place] [facility] [address] [id number] [place] [address] Jun, [facility] [place] [facility] [address] [id number] [place] [address] Jun, [facility] [place] [facility] [address] [id number] [place] [address] Jun, [facility] [place] [facility] [address] [id number] [place] [address] May, [facility] [place] [facility] [address] [facility] [id number] [place] [address] May, [facility] [place] [facility] [address] [id number] [place] [address] May, [facility] [place] [facility] [address] [id number] [place] [address] May, [facility] [place] [facility] [address] [facility] [id number] [place] [address] May, [facility] [place] [facility] [address] [facility] [id number] [place] [address] Apr, [facility] [place] [facility] [address] [id number] [place] [address] Apr, [facility] [place] [facility] [address] [facility] [id number] [place] [address] Apr, [facility] [place] [facility] [address] [facility] [id number] [place] [address] Apr, [facility] [place] [facility] [address] [id number] [place] [address] Mar, [facility] [place] [facility] [address] [id number] [place] [address] Mar, [facility] [place] [facility] [address] [id number] [place] [address]105 Mar, [facility] [place] [facility] [address] [id number] [place] [address] Mar, [facility] [place] [facility] [address] [facility] [id number] [place] [address] Feb, [facility] [place] [facility] [address] [id number] [place] [address] 17 Feb, 2013 [facility] [place] [facility] [address] [id number] [place] [address] Feb, [facility] [place] [facility] [address] [id number] [place] [address] Feb, [facility] [place] [facility] [address] [id number] [place] [address] Jan, [facility] [place] [facility] [address] [id number] [place] [address] Jan, [facility] [place] [facility] [address] [id number] [place] [address] Jan, [facility] [place] [facility] [address] [id number] [place] [address] Jan, [facility] [place] [facility] [address] [id number] [place] [address] Dec, [facility] [place] [facility] [address] [id number] [place] [address] 1996 27 Nov, 2012 [facility] [place] [facility] [address] [id number] [place] [address] 23 Nov, 2012 [facility] [place] [address] [id number] [place] [address] 23 Nov, 2012 [facility] [place] [facility] [address] [id number] [place] [address]- [address] 10 Nov, 2012 [facility] [place] [facility] [address] [id number] [place] [address]- [address] 09 Nov, 2012 [facility] [address] [id number] [place] [address] 15 Oct, 2012 [facility] [place] [facility] [address] [id number] [place] [address] Oct, [facility] [facility] [address] [id number] [place] [address] Sep, [facility] [address] [id number] [place] [address]843 Sep, [facility] [place] [facility] [address] [id number] [place] [address] Sep, [facility] [address] [id number] [place] [address] Sep, [facility] [address] [id number] [place] [address] Sep, [facility] [address] [id number] [place] [address] Aug, [facility] [address] [id number] [place] [address]- 245[address] Aug, [facility] [facility] [address] [id number] [place] [address]2 Aug, [facility] [address] [id number] [place] [address] Aug, [facility] [address] [id number] [place] [address] 99[address] July, [facility] [address] [id number] [place] [address]- 7649 July, [facility] [address] [id number], [place] [address] July, [facility] [address] [id number], [place] [address]- [address] Jun, [facility] [address] [id number] [place] [address]20 May, [facility] [facility] [address] [id number] [place] [address]- 6882 May, [facility] [facility] [address] [id number] [place] [address]- [address]88 Apr, [facility] [address] [id number] [place] [address]- [address]245 Mar, [facility] [address] [id number] [place] [address]- 8096 Mar, [facility] [address] [id number] [place] [address]- [address]246 Mar, [facility] [address] [id number] [place] [address]- 0809 Mar, [facility] [facility] [address] [id number] [place] [address] 3847 Feb, [facility] [address] [id number] [place] [address]- 1419 Feb, [facility] [address] [id number] [place] [address]- 4104 Feb, [facility] [address] [id number] [place] [address]- [address]197 Feb, [facility] [address] [id number] [place] [address]- 4277 Jan, [facility] [address] [id number] [place] [address] 8416 Jan, [facility] [address] [id number] [place] [address]- 3581 Sep, [facility] [address] [id number] [place] [address]- 2546 Sep, [facility] [address] [id number] [place] [address]783 Aug, [facility] [address] [id number] [place] [address]- 4301 Aug, [facility] [address] [id number] [place] [address]- 2546 Jun, [facility] [address] [id number] [place] [address]- [address] May, [facility] [address] [id number] [address] May, [facility] [id number] [address] Mar, [facility] [address] [id number] [address] Mar, [facility] [id number] [address] 1396 Feb, [facility] [id number] [address] 6836 Feb, [facility] [id number] [address]366 Feb, [facility] [id number] [address] 7976 Dec, [facility] [address] [address]806 Aug, [facility] [id number] [address]686 May, [facility] [id number] [address]666 Mar, [facility] [address] [id number] [address] Oct, [facility] [address] [id number], [place] [address] Sep, [facility] [address] [id number], [place] [address] Jun, IMMUNIZATIONS No Known Immunizations SOCIAL HISTORY Never Assessed REASON FOR VISIT Routine nurse call/ PLAN OF CARE VITAL SIGNS MEDICATIONS Medication Instructions Dosage Frequency Start Date End Date Duration Status Bactrim DS 800-160 MG Orally Twice a day 1 tablet 12h Dec, Jan, 10 day(s) Active RESULTS No Results PROCEDURES No Known [...]
--- OUTSIDE RECORDS SUMMARY | 2018-02-25 23:36 | XMS REPORT ---
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 Active Problem USP 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.4 Active 264711607 Problem Type 2 diabetes mellitus with diabetic nephropathy E11.21 Active 184223846 Problem Type 2 diabetes mellitus with hyperglycemia E11.65 Active 547876489 Problem Uncontrolled type 2 diabetes mellitus without complication, without long-term 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 E11.65 Active 119745964 Problem Diabetes type 2, uncontrolled E11.65 Active 719896273 Problem Noncompliance of patient with dietary regimen Z91.11 Active 518914983 Problem Mood disorder F39 Active 05147535 Problem Attention deficit hyperactivity disorder (ADHD), predominantly inattentive type F90.0 Active 45467247 Problem Major depression, chronic F32.9 Active 416512934 Problem Generalized anxiety disorder F41.1 Active 28613026 Problem Noncompliance w/medication treatment due to intermit use of medication Z91.14 Active 963607493 Problem Recurrent major depressive disorder, in partial remission F33.41 Active 61851516 Problem visual developer 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.899 Active 210295154 Problem Attention deficit hyperactivity disorder, combined type F90.2 Active 39077460 ALLERGIES No Information ENCOUNTERS Encounter Location Date Diagnosis [facility] [address] [facility] [id number] [address] Dec, [facility] [address] [facility] [id number] [place] [address] 31182 -3009 Dec, Acute pain of left wrist M25.532 and Closed fracture of left wrist, initial encounter S62.102A [facility] [id number] [place] [address] 41860- 6070 Dec, [facility] [id number] [place] [address] 40276- 6414 Dec, [facility] [id number] [place] [address] 22610- 5192 Oct, [facility] [id number] [place] [address] 47237- 3646 Oct, [facility] [id number] [place] [address] 31545- 1115 Aug, [facility] [id number] [place] [address] 44018- 1533 July, Generalized anxiety disorder F41.1 ; Bipolar II disorder F31.81 ; Attention deficit hyperactivity disorder, combined type F90.2 ; Cannabis abuse F12.10 and Amphetamine and psychostimulant abuse, 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 [facility] [id number] [place] [address] 01070- 9915 Mar, Type 2 diabetes mellitus with diabetic nephropathy E11.21 [facility] [address] [address] Mar, Anxiety F41.9 ; Diabetes type 2, uncontrolled E11.65 and Tooth infection K04.7 [facility] [id number] [place] [address] 93675- 2323 Mar, Type 2 diabetes mellitus with diabetic nephropathy E11.21 [facility] [id number] [place] [address] 25700- 5161 Feb, [facility] [id number] [place] [address] 22231- 9418 Jan, Type 2 diabetes mellitus with diabetic nephropathy E11.21 [facility] [address] [id number] [address] Dec, Type 2 diabetes mellitus with diabetic nephropathy E11.21 [facility] [address] [id number] 7612 Nov, Mood disorder F39 and Type 2 diabetes mellitus with hyperglycemia E11.65 [facility] [address] [address] 4522 Oct, Mood disorder F39 and Type 2 diabetes mellitus with hyperglycemia E11.65 [facility] [id number] [place] [address] 41315- 7394 Sep, Type 2 diabetes mellitus with diabetic nephropathy E11.21 and Seizures R56.9 [facility] [address] [address]- 8506 Sep, [facility] [address] [id number] [address]- 8796 Sep, [facility] [address] [id number] [address]- 8210 Sep, [facility] [address] [address] 0776 July, [facility] [address] [address]- 5651 Jun, [facility] [address] [address] 5660 Jun, [facility] [address] [address] 1385 Jun, Uncontrolled type 2 diabetes mellitus without complication, without long-term 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 E11.65 [facility] [address] 5222 May, [facility] [address] [address]- 3989 May, [facility] [id number] [place] [address] 06319- 9563 Mar, Generalized anxiety disorder F41.1 ; Major depression F32.9 ; Attention deficit hyperactivity disorder, combined type F90.2 ; Amphetamine and psychostimulant abuse, 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 and Cannabis abuse F12.10 [facility] [address] [address] 7715 Mar, Type 2 diabetes mellitus with diabetic nephropathy E11.21 ; Type 2 diabetes mellitus with hyperglycemia E11.65 and USP 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.4 [facility] [id number] [place] [address] 57379- 9611 Feb, [facility] [id number] [place] [address] 24727- 7021 Jan, [facility] [id number] [place] [address] 29034- 3099 Dec, [facility] [id number] [place] [address] 51437- 2550 Dec, Generalized anxiety disorder F41.1 ; Attention deficit hyperactivity disorder, combined type F90.2 and Recurrent major depressive disorder, in partial remission F33.41 [place] [facility] [id number] [place] [address] 45647- 3886 Dec, Diabetes type 2, uncontrolled E11.65 [place] [facility] [id number] [place] [address] 38364- 3900 Dec, [facility] [id number] [place] [address] 01502- 2172 Dec, [facility] [id number] [place] [address] 13745- 5926 Dec, [place] [id number] [place] [address] 82921- 0320 Nov, [facility] [address] [place] [address] 99296- 5038 Oct, Noncompliance w/medication treatment due to intermit use of medication Z91.14 [facility] [address] [address]- 6919 Oct, Noncompliance w/medication treatment due to intermit use of medication Z91.14 [facility] [address], [place] [address]- 8943 Oct, [facility] [address] [address]- 9321 Oct, [facility] [address], [place] [address]- 3619 Oct, [facility] [address] [place] [address] 88233- 7178 Sep, Diabetic polyneuropathy associated with type 2 diabetes mellitus E11.42 [facility] [address] [address]- 6625 Sep, [facility] [address] [address]- 2977 Aug, Diabetes type 2, uncontrolled E11.65 and Diabetic polyneuropathy associated with type 2 diabetes mellitus E11.42 [facility] [address] [place] [address] 84916- 9078 Aug, [facility] [address] [address]- 8679 Aug, [facility] [address], [place] [address]- 5301 July, Generalized anxiety disorder F41.1 and Major depression F32.9 [facility] [address] [address]- 6393 July, [facility] [address] [address]- 6933 Jun, [facility] [address] [address]- 5988 May, USP 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.899 ; Diabetes type 2, uncontrolled E11.65 ; Gastroenteritis K52.9 ; Malaise R53.81 and Dysrhythmia I49.9 [facility] [address] [place] [address] 89061- 5875 May, [facility] [id number] [place] [address] 23483- 9562 May, [facility] [id number] [place] [address] 06651- 4599 Apr, [facility] [id number] [place] [address] 86887- 2766 Apr, Type 2 diabetes mellitus with hyperglycemia E11.65 [facility] [id number] [place] [address] 68055- 2251 Apr, [facility] [address] [place] [address] 34163- 1277 Apr, USP 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.899 ; Generalized anxiety disorder F41.1 ; Attention deficit hyperactivity disorder, combined type F90.2 and Major depression F32.9 [facility] [address] [address]- 7711 Mar, [facility] [address] [address]- 4557 Mar, [facility] [address] [address]- 9334 Mar, [facility] [address] [address]- 7388 Mar, [facility] [address], [place] [address]- 1552 Mar, [facility] [address] [address]- 2831 Feb, [facility] [address], [place] [address]- 6185 Feb, [facility] [id number] [address]- 0675 Feb, [facility] [address] [place] [address] 39215- 2543 Jan, Diabetes type 2, uncontrolled E11.65 [facility] [address] [address]- 5478 Jan, [facility] [id number] [place] [address] 98942- 5939 Jan, [facility] [address] [place] [address] 93352- 2293 Jan, [facility] [id number] [place] [address] 54165- 9225 Dec, [facility] [id number] [place] [address] 95388- 3600 Dec, [facility] [id number] [place] [address] 91848- 7138 Dec, [facility] [address] [address]- 7921 Dec, Type 2 diabetes mellitus with diabetic nephropathy E11.21 [facility] [address] [address]- 7153 Dec, [facility] [address], [place] [address]- 8241 Dec, [facility] [address] [address]- 4212 Dec, [facility] [address], [place] [address]- 8933 Dec, Attention deficit hyperactivity disorder, combined type F90.2 ; Generalized anxiety disorder F41.1 and Major depression F32.9 [facility] [address], [place] [address]- 1739 Dec, Type 2 diabetes mellitus with diabetic nephropathy E11.21 and Type 2 diabetes mellitus with hyperglycemia E11.65 [facility] [id number] [place] [address]- 2363 30 Nov, 2014 [facility] [address] [place] [address]- 0863 17 Nov, 2014 [facility] [address] [address]- 3495 16 Nov, 2014 [facility] [id number] [place] [address] 73549- 9238 Oct, [facility] [address] [place] [address]- 1877 Oct, [facility] [id number] [place] [address] 10283- 2637 Oct, [facility] [id number] [place] [address] 53030- 9343 Sep, Hepatitis C 070.70 and URI, acute 465.9 [facility] [address] [address]- 2419 Sep, [facility] [address] [place] [address] 10625- 8811 Sep, [facility] [address] [address]- 6036 Sep, [facility] [address] [address]- 9230 Aug, [facility] [address] [address]- 3996 Aug, [facility] [address] [address]- 8165 Aug, [facility] [address] [address]- 4915 Aug, [facility] [id number] [address]- 4293 Aug, [facility] [address] [address]- 8243 Aug, [facility] [address] 9501 Aug, Generalized anxiety disorder 300.02 ; Attention deficit disorder of childhood without mention of hyperactivity 314.00 and Major depressive disorder, recurrent episode, severe, specified as with psychotic behavior 296.34 [facility] [id number] [address]- 2539 July, Diabetes with renal manifestations, type II or unspecified type, uncontrolled 250.42 [facility] [id number] [place] [address] 40791- 0104 July, [facility] [id number] [place] [address] 88333- 4605 July, [facility] [id number] [place] [address] 74936- 9811 July, [facility] [address], [place] [address]- 4812 Jun, [facility] [id number] [address]- 0574 Jun, [facility] [address], [place] [address]- 8042 Jun, [facility] [address], [place] [address]- 1971 May, [facility] [address], [place] [address]- 9018 May, [facility] [address] 3494 May, [facility] [address] 9119 May, [facility] [address]- 7925 May, [facility] [place] [facility] [address] [id number] [place] [address]- 8574 May, [facility] [place] [facility] [address] [id number] [place] [address]- 0076 May, [facility] [place] [facility] [address] [id number] [place] [address]- 9964 May, [facility] [place] [facility] [address] [id number] [place] [address]- 8208 May, [facility] [place] [facility] [address] [id number] [place] [address]- 6312 May, [facility] [place] [facility] [address] [id number] [place] [address]- 4232 May, [facility] [place] [facility] [address] [facility] [id number] [place] [address]- 4186 May, [facility] [place] [facility] [address] [id number] [place] [address]- 5408 May, [facility] [place] [facility] [address] [id number] [place] [address]- 5279 May, [facility] [place] [facility] [address] [id number] [place] [address]- 9011 Apr, 2014 [facility] [place] [facility] [address] [id number] [place] [address]- 6594 Apr, 2014 [facility] [place] [facility] [address] [id number], [place] [address]- 8226 Apr, 2014 [facility] [place] [facility] [address] [id number] [place] [address]- 5430 Apr, 2014 [facility] [place] [facility] [address] [id number] [place] [address]- 4194 Apr, 2014 [facility] [place] [facility] [address] [id number] [place] [address]- 2049 Apr, 2014 [facility] [place] [facility] [address] [id number], [place] [address]- 9817 Apr, [facility] [place] [facility] [address] [id number] [place] [address]- 1247 Apr, [facility] [place] [facility] [address] [id number] [place] [address]- 6754 Mar, [facility] [place] [facility] [address] [id number] [place] [address]- 1418 Mar, [facility] [place] [facility] [address] [id number] [place] [address]- 7915 Mar, [facility] [place] [facility] [address] [id number] [place] [address]- 8926 Mar, [facility] [place] [facility] [address] [id number] [place] [address]- 9672 Mar, [facility] [place] [facility] [address] [id number] [place] [address]- 4043 Mar, [facility] [place] [facility] [address] [id number] [place] [address]- 4540 Mar, [facility] [place] [facility] [address] [id number] [place] [address]- 8224 Mar, [facility] [place] [facility] [address] [id number] [place] [address]- 1664 Mar, [facility] [place] [facility] [address] [id number] [place] [address]- 2000 Mar, [facility] [place] [facility] [address] [id number], [place] [address]- 5764 Mar, [facility] [place] [facility] [address] [id number] [place] [address]- 9469 Mar, [facility] [place] [facility] [address] [id number] [place] [address]- 4894 Mar, [facility] [place] [facility] [address] [id number], [place] [address]- 0971 Mar, [facility] [place] [facility] [address] [id number] [place] [address]- 8270 Mar, [facility] [place] [facility] [address] [id number] [place] [address]- 0568 Mar, [facility] [place] [facility] [address] [id number] [place] [address]- 0064 Feb, [facility] [place] [facility] [address] [id number] [place] [address]- 4883 Feb, [facility] [place] [facility] [address] [id number] [place] [address]- 3619 Feb, [facility] [place] [facility] [address] [id number] [place] [address]- 2703 Feb, [facility] [place] [facility] [address] [id number] [place] [address]- 3919 Feb, [facility] [place] [facility] [address] [id number] [place] [address]- 7109 Feb, [facility] [place] [facility] [address] [id number] [place] [address]- 6892 Feb, [facility] [place] [facility] [address] [id number] [place] [address]- 0549 Feb, [facility] [place] [facility] [address] [id number] [place] [address]- 2141 Feb, [facility] [place] [facility] [address] [id number] [place] [address]- 1139 Feb, [facility] [place] [facility] [address] [id number] [place] [address]- 1791 Jan, [facility] [place] [facility] [address] [id number] [place] [address]- 5667 Jan, [facility] [place] [facility] [address] [id number] [place] [address]- 1121 Jan, [facility] [place] [facility] [address] [id number] [place] [address]- 5938 Jan, [facility] [place] [facility] [address] [id number] [place] [address]- 5215 Jan, [facility] [place] [facility] [address] [id number] [place] [address]- 2903 Jan, [facility] [place] [facility] [address] [id number] [place] [address]- 9008 Jan, [facility] [place] [facility] [address] [id number] [place] [address]- 6544 Jan, [facility] [place] [facility] [address] [id number] [place] [address] Jan, [facility] [place] [facility] [address] [id number] [place] [address] Dec, [facility] [place] [facility] [address] [id number] [place] [address] Dec, [facility] [place] [facility] [address] [id number] [place] [address] Dec, [facility] [place] [facility] [address] [id number] [place] [address] Dec, [facility] [place] [facility] [address] [id number] [place] [address] Dec, [facility] [place] [facility] [address] [id number], [place] [address] Dec, [facility] [place] [facility] [address] [id number], [place] [address] Nov, [facility] [place] [facility] [address] [id number] [place] [address] Nov, [facility] [place] [facility] [address] [id number], [place] [address] Nov, [facility] [place] [facility] [address] [id number], [place] [address] Nov, [facility] [place] [facility] [address] [id number] [place] [address] 08 Nov, 2013 [facility] [place] [facility] [address] [id number] [place] [address] Nov, [facility] [place] [facility] [address] [id number] [place] [address] Nov, [facility] [place] [facility] [address] [id number] [place] [address] Nov, [facility] [place] [facility] [address] [id number] [place] [address] Oct, [facility] [place] [facility] [address] [id number] [place] [address] Oct, [facility] [place] [facility] [address] [id number] [place] [address] Oct, [facility] [place] [facility] [address] [id number] [place] [address] Oct, [facility] [place] [facility] [address] [id number] [place] [address] Oct, [facility] [place] [facility] [address] [id number] [place] [address] Oct, [facility] [place] [facility] [address] [id number] [place] [address] Sep, [facility] [place] [facility] [address] [id number] [place] [address] Sep, [facility] [place] [facility] [address] [id number] [place] [address] Sep, [facility] [place] [facility] [address] [id number] [place] [address] Aug, [facility] [place] [facility] [address] [id number] [place] [address] Aug, [facility] [place] [facility] [address] [id number] [place] [address] July, [facility] [place] [facility] [address] [id number] [place] [address] July, [facility] [place] [facility] [address] [id number] [place] [address] Jun, [facility] [place] [facility] [address] [id number] [place] [address] Jun, [facility] [place] [facility] [address] [id number] [place] [address] Jun, [facility] [place] [facility] [address] [id number] [place] [address] Jun, [facility] [place] [facility] [address] [id number] [place] [address] Jun, [facility] [place] [facility] [address] [id number] [place] [address] Jun, [facility] [place] [facility] [address] [id number] [place] [address] Jun, [facility] [place] [facility] [address] [id number] [place] [address] Jun, [facility] [facility] [address] [id number] [place] [address] Jun, [facility] [place] [facility] [address] [id number] [place] [address] Jun, [facility] [place] [facility] [address] [id number] [place] [address] Jun, [facility] [place] [facility] [address] [id number] [place] [address] Jun, [facility] [place] [facility] [address] [id number] [place] [address] May, [facility] [place] [facility] [address] [id number] [place] [address] May, [facility] [place] [facility] [address] [id number], [place] [address] 18 May, 2013 [facility] [place] [facility] [address] [id number] [place] [address] 10 May, 2013 [facility] [place] [facility] [address] [id number] [place] [address] 10 May, 2013 [facility] [place] [facility] [address] [id number] [place] [address] Apr, [facility] [place] [facility] [address] [id number] [place] [address] Apr, [facility] [place] [facility] [address] [id number] [place] [address] 07 Apr, 2013 [facility] [place] [facility] [address] [id number] [place] [address] Apr, [facility] [place] [address] [id number] [place] [address] 17 Mar, 2013 [facility] [place] [facility] [address] [id number] [place] [address]- [address]283 17 Mar, 2013 [facility] [place] [facility] [address] [id number] [place] [address] Mar, [facility] [address] [facility] [id number] [place] [address] Mar, [facility] [place] [facility] [address] [id number] [place] [address]398 17 Feb, 2013 [facility] [place] [facility] [address] [id number] [place] [address]28 17 Feb, 2013 [facility] [place] [facility] [address] [id number] [place] [address] Feb, [facility] [place] [facility] [address] [id number] [place] [address] 13 Feb, 2013 [facility] [address] [id number], [place] [address] 12 Jan, 2013 [facility] [address] [id number] [place] [address] Jan, [facility] [place] [facility] [address] [id number] [place] [address] Jan, [facility] [place] [facility] [address] [id number] [place] [address]- 1473 Jan, [facility] [address] [id number] [place] [address] Dec, [facility] [place] [facility] [address] [id number] [place] [address] Nov, [facility] [place] [facility] [address] [id number] [place] [address] Nov, [facility] [place] [facility] [address] [id number] [place] [address]- [address]64 Nov, [facility] [place] [facility] [address] [id number] [place] [address] Nov, [facility] [place] [facility] [address] [id number] [place] [address]- 4[address] Nov, [facility] [place] [address] [id number] [place] [address]4 15 Oct, 2012 [facility] [facility] [address] [id number] [place] [address]6 Oct, [facility] [facility] [address] [id number] [place] [address]687 Sep, [facility] [place] [facility] [address] [id number] [place] [address] Sep, [facility] [place] [facility] [address] [id number] [place] [address] Sep, [facility] [place] [address] [id number] [place] [address]- [address]283 Sep, [facility] [place] [facility] [address] [id number] [place] [address]28 Sep, [facility] [address] [id number] [place] [address] Aug, [facility] [address] [id number] [place] [address] 75[address] Aug, [facility] [address] [id number] [place] [address] Aug, [facility] [address] [id number] [place] [address] 8551 Aug, [facility] [address] [id number] [place] [address]63 July, [facility] [address] [id number] [place] [address]- 6267 July, [facility] [address] [id number] [place] [address]- [address] July, [facility] [address] [id number] [place] [address]- [address]842 Jun, [facility] [address] [id number] [place] [address]- 8247 May, [facility] [address] [id number] [place] [address]- 7565 May, [facility] [address] [id number] [place] [address]- 3735 Apr, [facility] [address] [id number] [place] [address] 8832 Mar, [facility] [address] [id number] [place] [address]- [address]143 Mar, [facility] [address] [id number] [place] [address]- 6441 Mar, [facility] [address] [id number] [place] [address]- 3809 Mar, [facility] [address] [id number] [place] [address]- [address]46 07 Feb, 2012 [facility] [address] [id number] [place] [address]- [address]46 Feb, [facility] [address] [id number] [place] [address] 2546 Feb, [facility] [address] [id number] [place] [address]- 2546 Feb, [facility] [address] [id number] [place] [address]46 Jan, [facility] [address] [id number] [place] [address]- 2546 Jan, [facility] [address] [id number] [place] [address]- [address]46 Sep, [facility] [address] [id number] [place] [address]- [address]46 Sep, [facility] [address] [id number] [place] [address]- 8196 Aug, [facility] [address] [id number] [place] [address]- 0416 Aug, [facility] [address] [facility] [id number] [place] [address]- [address]46 Jun, [facility] [address] [id number] [place] [address]- 2546 May, [facility] [address] [id number] [place] [address]- 2546 May, [facility] [address] [id number] [place] [address]- 2546 Mar, [facility] [address] [id number] [place] [address]- 2546 Mar, [facility] [address] [id number] [place] [address]- 2436 Feb, [facility] [address] [id number], [place] [address] Feb, [facility] [address] [id number], [place] [address]66 Feb, [facility] [address] [id number], [place] [address] 14 Dec, 2010 [facility] [id number], [place] [address] Aug, [facility] [id number], [place] [address]641 May, [facility] [id number], [place] [address]66 Mar, [facility] [id number], [place] [address] 16 Oct, 2009 [facility] [address] [id number], [place] [address] Sep, [facility] [address] [id number], [place] [address] Jun, IMMUNIZATIONS No Known Immunizations SOCIAL HISTORY Never Assessed REASON FOR VISIT Refill request PLAN OF CARE VITAL SIGNS MEDICATIONS Unknown [...]
--- OUTSIDE RECORDS SUMMARY | 2018-02-25 23:36 | XMS REPORT ---
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 Active Problem group home 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.4 Active 003112977 Problem Type 2 diabetes mellitus with diabetic nephropathy E11.21 Active 064831498 Problem Type 2 diabetes mellitus with hyperglycemia E11.65 Active 347703956 Problem Uncontrolled type 2 diabetes mellitus without complication, without long-term 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 E11.65 Active 225372809 Problem Diabetes type 2, uncontrolled E11.65 Active 423741724 Problem Noncompliance of patient with dietary regimen Z91.11 Active 700232236 Problem Mood disorder F39 Active 98587173 Problem Attention deficit hyperactivity disorder (ADHD), predominantly inattentive type F90.0 Active 26532514 Problem Major depression, chronic F32.9 Active 771215803 Problem Generalized anxiety disorder F41.1 Active 15860631 Problem Noncompliance w/medication treatment due to intermit use of medication Z91.14 Active 126139992 Problem Recurrent major depressive disorder, in partial remission F33.41 Active 27770059 Problem 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 Active 653501342 Problem Attention deficit hyperactivity disorder, combined type F90.2 Active 48285700 ALLERGIES No Information ENCOUNTERS Encounter Location Date Diagnosis [facility] [address] [facility] [id number] [address] Dec, [facility] [address] [facility] [id number] [place] [address] 12923 -3224 Dec, Acute pain of left wrist M25.532 and Closed fracture of left wrist, initial encounter S62.102A [facility] [id number] [place] [address] 40859- 6025 Dec, [facility] [id number] [place] [address] 90244- 7317 Dec, [facility] [id number] [place] [address] 42413- 4885 Oct, [facility] [id number] [place] [address] 64250- 4850 Oct, [facility] [id number] [place] [address] 22440- 5929 Aug, [facility] [id number] [place] [address] 34457- 1034 July, Generalized anxiety disorder F41.1 ; Bipolar II disorder F31.81 ; Attention deficit hyperactivity disorder, combined type F90.2 ; Cannabis abuse F12.10 and Amphetamine and psychostimulant abuse, 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 [facility] [id number] [place] [address] 76122- 5272 Mar, Type 2 diabetes mellitus with diabetic nephropathy E11.21 [facility] [address], [place] [address] 2750 Mar, Anxiety F41.9 ; Diabetes type 2, uncontrolled E11.65 and Tooth infection K04.7 [facility] [id number] [place] [address] 67274- 1626 Mar, Type 2 diabetes mellitus with diabetic nephropathy E11.21 [facility] [id number] [place] [address] 64506- 9205 Feb, [facility] [id number] [place] [address] 63066- 1003 Jan, Type 2 diabetes mellitus with diabetic nephropathy E11.21 [facility] [address] [id number] [address] [address]52 Dec, Type 2 diabetes mellitus with diabetic nephropathy E11.21 [facility] [address] [id number] 8110 Nov, Mood disorder F39 and Type 2 diabetes mellitus with hyperglycemia E11.65 [facility] [address], [place] [address] 2558 Oct, Mood disorder F39 and Type 2 diabetes mellitus with hyperglycemia E11.65 [facility] [id number] [place] [address] 39680- 6197 Sep, Type 2 diabetes mellitus with diabetic nephropathy E11.21 and Seizures R56.9 [facility] [address], [place] [address] 3986 Sep, [facility] [address] [id number] [address] 4247 Sep, [facility] [address] [id number] [address] 5204 Sep, [facility] [address], [place] [address] 6161 July, [facility] [address], [place] [address] 9976 Jun, [facility] [address], [place] [address]- 7688 Jun, [facility] [address], [place] [address] 9167 Jun, Uncontrolled type 2 diabetes mellitus without complication, without long-term 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 E11.65 [facility] [address] 9197 May, [facility] [address], [place] [address] 5247 May, [facility] [id number] [place] [address] 09576- 9694 Mar, Generalized anxiety disorder F41.1 ; Major depression F32.9 ; Attention deficit hyperactivity disorder, combined type F90.2 ; Amphetamine and psychostimulant abuse, 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 and Cannabis abuse F12.10 [facility] [address], [place] [address] 9295 Mar, Type 2 diabetes mellitus with diabetic nephropathy E11.21 ; Type 2 diabetes mellitus with hyperglycemia E11.65 and group home 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.4 [place] [facility] [id number] [place] [address] 97235- 7751 Feb, [place] [id number] [place] [address] 69002- 3012 Jan, [place] [id number] [place] [address] 43979- 0284 Dec, [place] [id number] [place] [address] 83452- 9782 Dec, Generalized anxiety disorder F41.1 ; Attention deficit hyperactivity disorder, combined type F90.2 and Recurrent major depressive disorder, in partial remission F33.41 [place] [id number] [place] [address] 26278- 7245 Dec, Diabetes type 2, uncontrolled E11.65 [place] [id number] [place] [address] 35414- 6318 Dec, [facility] [id number] [place] [address] 86451- 2051 Dec, [facility] [id number] [place] [address] 75381- 6628 Dec, [place] [id number] [place] [address] 43037- 3347 Nov, [facility] [id number] [place] [address] 88867- 9103 Oct, Noncompliance w/medication treatment due to intermit use of medication Z91.14 [facility] [address], [place] [address]- 4691 Oct, Noncompliance w/medication treatment due to intermit use of medication Z91.14 [facility] [address], [place] [address]- 0859 Oct, [facility] [address], [place] [address]- 3081 Oct, [facility] [address], [place] [address]- 6711 Oct, [facility] [id number] [place] [address] 39663- 6246 Sep, Diabetic polyneuropathy associated with type 2 diabetes mellitus E11.42 [facility] [address], [place] [address]- 1142 Sep, [facility] [id number] [address]- 8730 Aug, Diabetes type 2, uncontrolled E11.65 and Diabetic polyneuropathy associated with type 2 diabetes mellitus E11.42 [facility] [id number] [place] [address] 25234- 9802 Aug, [facility] [address], [place] [address]- 4734 Aug, [facility] [address], [place] [address]- 8345 July, Generalized anxiety disorder F41.1 and Major depression F32.9 [facility] [address], [place] [address]- 4742 July, [facility] [address], [place] [address]- 1279 Jun, [facility] [address], [place] [address]- 2983 May, group home 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.899 ; Diabetes type 2, uncontrolled E11.65 ; Gastroenteritis K52.9 ; Malaise R53.81 and Dysrhythmia I49.9 [facility] [id number] [place] [address] 88966- 0620 May, [facility] [id number] [place] [address] 60102- 7909 May, [facility] [id number] [place] [address] 57893- 2683 Apr, [facility] [id number] [place] [address] 64754- 1076 Apr, Type 2 diabetes mellitus with hyperglycemia E11.65 [facility] [id number] [place] [address] 60203- 3954 Apr, [facility] [id number] [place] [address] 40233- 8727 Apr, group home 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.899 ; Generalized anxiety disorder F41.1 ; Attention deficit hyperactivity disorder, combined type F90.2 and Major depression F32.9 [facility] [address], [place] [address]- 7718 Mar, [facility] [address], [place] [address]- 5927 Mar, [facility] [address], [place] [address]- 9151 Mar, [facility] [address], [place] [address]- 6442 Mar, [facility] [address], [place] [address]- 0711 Mar, [facility] [address], [place] [address]- 8583 Feb, [facility] [address], [place] [address]- 7737 Feb, [facility] [id number] [address]- 6658 Feb, [facility] [id number] [place] [address] 44387- 1988 Jan, Diabetes type 2, uncontrolled E11.65 [facility] [address], [place] [address]- 6790 Jan, [facility] [id number] [place] [address] 28890- 5784 Jan, [facility] [id number] [place] [address] 27102- 5239 Jan, [facility] [id number] [place] [address] 45121- 7745 Dec, [facility] [id number] [place] [address] 96697- 1793 Dec, [facility] [id number] [place] [address] 26563- 6956 Dec, [facility] [address] [address]- 0034 Dec, Type 2 diabetes mellitus with diabetic nephropathy E11.21 [facility] [address], [place] [address]- 9038 Dec, [facility] [address], [place] [address]- 2827 Dec, [facility] [address], [place] [address]- 9967 Dec, [facility] [address], [place] [address]- 9861 Dec, Attention deficit hyperactivity disorder, combined type F90.2 ; Generalized anxiety disorder F41.1 and Major depression F32.9 [facility] [address], [place] [address]- 9524 Dec, Type 2 diabetes mellitus with diabetic nephropathy E11.21 and Type 2 diabetes mellitus with hyperglycemia E11.65 [facility] [id number] [place] [address]- 9671 30 Nov, 2014 [facility] [id number] [place] [address]- 9297 17 Nov, 2014 [facility] [address], [place] [address]- 8274 16 Nov, 2014 [facility] [id number] [place] [address] 26122- 6342 Oct, [facility] [id number] [place] [address]- 7105 Oct, [facility] [id number] [place] [address] 49185- 2183 Oct, [facility] [id number] [place] [address] 08245- 7072 Sep, Hepatitis C 070.70 and URI, acute 465.9 [facility] [address], [place] [address]- 2991 Sep, [facility] [id number] [place] [address] 65129- 0875 Sep, [facility] [address], [place] [address]- 2150 Sep, [facility] [address], [place] [address]- 3458 Aug, [facility] [address], [place] [address]- 6538 Aug, [facility] [address], [place] [address]- 2689 Aug, [facility] [address], [place] [address]- 9151 Aug, [facility] [id number] [address]- 1524 Aug, [facility] [address] [address]- 7253 Aug, [facility] [address] 5071 Aug, Generalized anxiety disorder 300.02 ; Attention deficit disorder of childhood without mention of hyperactivity 314.00 and Major depressive disorder, recurrent episode, severe, specified as with psychotic behavior 296.34 [facility] [id number] [address]- 4803 July, Diabetes with renal manifestations, type II or unspecified type, uncontrolled 250.42 [facility] [id number] [place] [address] 87574- 3279 July, [facility] [id number] [place] [address] 26512- 8126 July, [facility] [id number] [place] [address] 00753- 7190 July, [facility] [address], [place] [address]- 6702 Jun, [facility] [id number] [address]- 0007 Jun, [facility] [address], [place] [address]- 1932 Jun, [facility] [address], [place] [address]- 9777 May, [facility] [address], [place] [address]- 8841 May, [facility] [address] 1966 May, [facility] [address] 9971 May, [facility] [address] 1456 May, [facility] [place] [facility] [address] [id number] [place] [address]- 9187 May, [facility] [place] [facility] [address] [id number] [place] [address]- 6368 May, [facility] [place] [facility] [address] [id number] [place] [address]- 8135 May, [facility] [place] [facility] [address] [id number] [place] [address]- 0146 May, [facility] [place] [facility] [address] [id number] [place] [address]- 0690 May, [facility] [place] [facility] [address] [id number] [place] [address]- 0454 May, [facility] [place] [facility] [address] [facility] [id number] [place] [address]- 2151 May, [facility] [place] [facility] [address] [id number] [place] [address]- 3002 May, [facility] [place] [facility] [address] [id number] [place] [address]- 9907 May, [facility] [place] [facility] [address] [id number] [place] [address]- 6857 Apr, 2014 [facility] [place] [facility] [address] [id number] [place] [address]- 8667 Apr, 2014 [facility] [place] [facility] [address] [id number], [place] [address]- 5127 Apr, 2014 [facility] [place] [facility] [address] [id number] [place] [address]- 2199 Apr, 2014 [facility] [place] [facility] [address] [id number] [place] [address]- 9089 Apr, 2014 [facility] [place] [facility] [address] [id number] [place] [address]- 3243 Apr, 2014 [facility] [place] [facility] [address] [id number], [place] [address]- 3137 Apr, [facility] [place] [facility] [address] [id number] [place] [address]- 8676 Apr, [facility] [place] [facility] [address] [id number] [place] [address]- 8730 Mar, [facility] [place] [facility] [address] [id number] [place] [address]- 8322 Mar, [facility] [place] [facility] [address] [id number] [place] [address]- 3050 Mar, [facility] [place] [facility] [address] [id number] [place] [address]- 7439 Mar, [facility] [place] [facility] [address] [id number] [place] [address]- 0262 Mar, [facility] [place] [facility] [address] [id number] [place] [address]- 2106 Mar, [facility] [place] [facility] [address] [id number] [place] [address]- 7167 Mar, [facility] [place] [facility] [address] [id number] [place] [address]- 8579 Mar, [facility] [place] [facility] [address] [id number] [place] [address]- 7957 Mar, [facility] [place] [facility] [address] [id number] [place] [address]- 8800 Mar, [facility] [place] [facility] [address] [id number], [place] [address]- 2506 Mar, [facility] [place] [facility] [address] [id number] [place] [address]- 2515 Mar, [facility] [place] [facility] [address] [id number] [place] [address]- 8801 Mar, [facility] [place] [facility] [address] [id number], [place] [address]- 2779 Mar, [facility] [place] [facility] [address] [id number] [place] [address]- 6327 Mar, [facility] [place] [facility] [address] [id number] [place] [address]- 8527 Mar, [facility] [place] [facility] [address] [id number] [place] [address]- 7240 Feb, [facility] [place] [facility] [address] [id number] [place] [address]- 0725 Feb, [facility] [place] [facility] [address] [id number] [place] [address]- 9089 Feb, [facility] [place] [facility] [address] [id number] [place] [address]- 8274 Feb, [facility] [place] [facility] [address] [id number] [place] [address]- 2679 Feb, [facility] [place] [facility] [address] [id number] [place] [address]- 3075 Feb, [facility] [place] [facility] [address] [id number] [place] [address]- 2025 Feb, [facility] [place] [facility] [address] [id number] [place] [address]- 2694 Feb, [facility] [place] [facility] [address] [id number] [place] [address]- 6878 Feb, [facility] [place] [facility] [address] [id number] [place] [address]- 7014 Feb, [facility] [place] [facility] [address] [id number] [place] [address]- 3689 Jan, [facility] [place] [facility] [address] [id number] [place] [address]- 8551 Jan, [facility] [place] [facility] [address] [id number] [place] [address]- 3167 Jan, [facility] [place] [facility] [address] [id number] [place] [address]- 8382 Jan, [facility] [place] [facility] [address] [id number] [place] [address]- 7063 Jan, [facility] [place] [facility] [address] [id number] [place] [address]- 8207 Jan, [facility] [place] [facility] [address] [id number] [place] [address]- 8181 Jan, [facility] [place] [facility] [address] [id number] [place] [address]- 0583 Jan, [facility] [place] [facility] [address] [id number] [place] [address]- 6603 Jan, [facility] [place] [facility] [address] [id number] [place] [address]- 7602 Dec, [facility] [place] [facility] [address] [id number] [place] [address]- 8147 Dec, [facility] [place] [facility] [address] [id number] [place] [address]- 3941 Dec, [facility] [place] [facility] [address] [id number] [place] [address]- 6966 Dec, [facility] [place] [facility] [address] [id number] [place] [address]- 5992 Dec, [facility] [place] [facility] [address] [id number], [place] [address]- 6532 Dec, [facility] [place] [facility] [address] [id number], [place] [address]- 9541 Nov, [facility] [place] [facility] [address] [id number] [place] [address] Nov, [facility] [place] [facility] [address] [id number], [place] [address] Nov, [facility] [place] [facility] [address] [id number], [place] [address] Nov, [facility] [place] [facility] [address] [id number] [place] [address] 08 Nov, 2013 [facility] [place] [facility] [address] [id number] [place] [address] Nov, [facility] [place] [facility] [address] [id number] [place] [address] Nov, [facility] [place] [facility] [address] [id number] [place] [address] Nov, [facility] [place] [facility] [address] [id number] [place] [address] Oct, [facility] [place] [facility] [address] [id number] [place] [address] Oct, [facility] [place] [facility] [address] [id number] [place] [address] Oct, [facility] [place] [facility] [address] [id number] [place] [address] Oct, [facility] [place] [facility] [address] [id number] [place] [address] Oct, [facility] [place] [facility] [address] [id number] [place] [address] Oct, [facility] [place] [facility] [address] [id number] [place] [address] Sep, [facility] [place] [facility] [address] [id number] [place] [address] Sep, [facility] [place] [facility] [address] [id number] [place] [address] Sep, [facility] [place] [facility] [address] [id number] [place] [address] Aug, [facility] [place] [facility] [address] [id number] [place] [address] Aug, [facility] [place] [facility] [address] [id number] [place] [address] July, [facility] [place] [facility] [address] [id number] [place] [address] July, [facility] [place] [facility] [address] [id number] [place] [address] Jun, [facility] [place] [facility] [address] [id number] [place] [address] Jun, [facility] [place] [facility] [address] [id number] [place] [address] Jun, [facility] [place] [facility] [address] [id number] [place] [address] Jun, [facility] [place] [facility] [address] [id number] [place] [address] Jun, [facility] [place] [facility] [address] [id number] [place] [address] Jun, [facility] [place] [facility] [address] [id number] [place] [address] Jun, [facility] [place] [facility] [address] [id number] [place] [address] Jun, [facility] [place] [facility] [address] [id number] [place] [address] Jun, [facility] [place] [facility] [address] [id number] [place] [address] Jun, [facility] [place] [facility] [address] [id number] [place] [address] Jun, [facility] [place] [facility] [address] [id number] [place] [address] Jun, [facility] [place] [facility] [address] [id number] [place] [address] May, [facility] [place] [facility] [address] [id number] [place] [address] May, [facility] [place] [facility] [address] [id number], [place] [address] 18 May, 2013 [facility] [place] [facility] [address] [id number] [place] [address] 10 May, 2013 [facility] [place] [facility] [address] [id number] [place] [address] 10 May, 2013 [facility] [place] [facility] [address] [id number] [place] [address] Apr, [facility] [place] [facility] [address] [id number] [place] [address] Apr, [facility] [place] [facility] [address] [id number] [place] [address] 07 Apr, 2013 [facility] [place] [facility] [address] [id number] [place] [address] Apr, [facility] [place] [facility] [address] [id number] [place] [address] 17 Mar, 2013 [facility] [place] [facility] [address] [id number] [place] [address] 17 Mar, 2013 [facility] [place] [facility] [address] [id number] [place] [address] Mar, [facility] [place] [facility] [address] [facility] [id number] [place] [address] Mar, [facility] [place] [facility] [address] [id number] [place] [address] 17 Feb, 2013 [facility] [place] [facility] [address] [id number] [place] [address] 17 Feb, 2013 [facility] [place] [facility] [address] [id number] [place] [address] Feb, [facility] [place] [facility] [address] [id number] [place] [address] 13 Feb, 2013 [facility] [place] [facility] [address] [id number], [place] [address] 12 Jan, 2013 [facility] [place] [facility] [address] [id number] [place] [address] Jan, [facility] [place] [facility] [address] [id number] [place] [address] Jan, [facility] [place] [facility] [address] [id number] [place] [address] Jan, [facility] [place] [facility] [address] [id number] [place] [address] Dec, [facility] [place] [facility] [address] [id number] [place] [address] Nov, [facility] [place] [facility] [address] [id number] [place] [address] Nov, [facility] [place] [facility] [address] [id number] [place] [address] Nov, [facility] [place] [facility] [address] [id number] [place] [address]99 Nov, [facility] [place] [facility] [address] [id number] [place] [address] Nov, [facility] [place] [facility] [address] [id number] [place] [address] 15 Oct, 2012 [facility] [place] [facility] [address] [id number] [place] [address] Oct, [facility] [place] [facility] [address] [id number] [place] [address] Sep, [facility] [place] [facility] [address] [id number] [place] [address] Sep, [facility] [place] [facility] [address] [id number] [place] [address] Sep, [facility] [place] [facility] [address] [id number] [place] [address] Sep, [facility] [place] [facility] [address] [id number] [place] [address]47 Sep, [facility] [address] [id number] [place] [address] Aug, [facility] [place] [facility] [address] [id number] [place] [address] Aug, [facility] [place] [facility] [address] [id number] [place] [address] Aug, [facility] [place] [facility] [address] [id number] [place] [address] Aug, [facility] [place] [facility] [address] [id number] [place] [address] July, [facility] [place] [facility] [address] [id number] [place] [address]169 July, [facility] [place] [facility] [address] [id number] [place] [address] July, [facility] [place] [facility] [address] [id number] [place] [address] Jun, [facility] [place] [facility] [address] [id number] [place] [address] May, [facility] [place] [facility] [address] [id number] [place] [address] May, [facility] [place] [facility] [address] [id number] [place] [address] Apr, [facility] [place] [facility] [address] [id number] [place] [address] Mar, [facility] [place] [facility] [address] [id number] [place] [address] Mar, [facility] [place] [facility] [address] [id number] [place] [address] Mar, [facility] [place] [facility] [address] [id number] [place] [address] Mar, [facility] [place] [facility] [address] [id number] [place] [address] 07 Feb, 2012 [facility] [address] [id number] [place] [address] Feb, [facility] [address] [id number] [place] [address] Feb, [facility] [address] [id number] [place] [address]46 Feb, [facility] [address] [id number] [place] [address] Jan, [facility] [address] [id number] [place] [address] Jan, [facility] [address] [id number] [place] [address] Sep, [facility] [address] [id number] [place] [address] Sep, [facility] [address] [id number] [place] [address] Aug, [facility] [address] [id number] [place] [address]846 Aug, [facility] [address] [facility] [id number] [place] [address] Jun, [facility] [address] [id number] [place] [address]46 May, [facility] [address] [id number] [place] [address]46 May, [facility] [place] [facility] [address] [id number] [place] [address] Mar, [facility] [place] [facility] [address] [id number] [place] [address]46 Mar, [facility] [address] [id number] [place] [address]6 Feb, [facility] [address] [id number], [place] [address] Feb, [facility] [id number], [place] [address] Feb, [facility] [address] [id number], [place] [address] Dec, [facility] [id number], [place] [address] Aug, [facility] [id number], [place] [address] May, [facility] [id number], [place] [address] Mar, [facility] [id number], [place] [address] 16 Oct, 2009 [facility] [id number], [place] [address] Sep, [facility] [address] [id number], [place] [address] Jun, IMMUNIZATIONS No Known Immunizations SOCIAL HISTORY Never Assessed REASON FOR VISIT ER visit PLAN OF CARE VITAL SIGNS MEDICATIONS Unknown [...]
--- OUTSIDE RECORDS SUMMARY | 2018-02-25 23:37 | XMS REPORT ---
Author Author MELISSA FERNANDEZ 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 Active Problem custodial 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.4 Active 207251545 Problem Type 2 diabetes mellitus with diabetic nephropathy E11.21 Active 952806838 Problem Type 2 diabetes mellitus with hyperglycemia E11.65 Active 668578180 Problem Uncontrolled type 2 diabetes mellitus without complication, without long-term 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 E11.65 Active 313067952 Problem Diabetes type 2, uncontrolled E11.65 Active 026847993 Problem Noncompliance of patient with dietary regimen Z91.11 Active 723954896 Problem Mood disorder F39 Active 80552602 Problem Attention deficit hyperactivity disorder (ADHD), predominantly inattentive type F90.0 Active 70487163 Problem Major depression, chronic F32.9 Active 873660940 Problem Generalized anxiety disorder F41.1 Active 11758210 Problem Noncompliance w/medication treatment due to intermit use of medication Z91.14 Active 742381296 Problem Recurrent major depressive disorder, in partial remission F33.41 Active 12502848 Problem 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 Active 080666083 Problem Attention deficit hyperactivity disorder, combined type F90.2 Active 49531097 ALLERGIES No Information ENCOUNTERS Encounter Location Date Diagnosis [facility] [address] [facility] [id number] [address] Oct, [facility] [id number] [place] [address] 98127- 4574 Oct, [place] [id number] [place] [address] 28282- 2994 Aug, [place] [id number] [place] [address] 92618- 1085 July, Generalized anxiety disorder F41.1 ; Bipolar II disorder F31.81 ; Attention deficit hyperactivity disorder, combined type F90.2 ; Cannabis abuse F12.10 and Amphetamine and psychostimulant abuse, 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 [place] [id number] [place] [address] 15858- 6421 Mar, Type 2 diabetes mellitus with diabetic nephropathy E11.21 [place] [id number] [place] [address] 27642- 8921 Mar, Anxiety F41.9 ; Diabetes type 2, uncontrolled E11.65 and Tooth infection K04.7 [place] [id number] [place] [address] 17159- 5404 Mar, Type 2 diabetes mellitus with diabetic nephropathy E11.21 [place] [id number] [place] [address] 92065- 5773 Feb, [place] [id number] [place] [address] 05543- 9437 Jan, Type 2 diabetes mellitus with diabetic nephropathy E11.21 [place] [id number] [place] [address] 29437- 8097 Dec, Type 2 diabetes mellitus with diabetic nephropathy E11.21 [place] [id number] [place] [address] 46775- 3322 Nov, Mood disorder F39 and Type 2 diabetes mellitus with hyperglycemia E11.65 [place] [id number] [place] [address] 45307- 8483 Oct, Mood disorder F39 and Type 2 diabetes mellitus with hyperglycemia E11.65 [place] [id number] [place] [address] 78490- 1196 Sep, Type 2 diabetes mellitus with diabetic nephropathy E11.21 and Seizures R56.9 [facility] [address], [place] [address] 8034 Sep, [facility] [id number] [place] [address] 57521- 0380 Sep, [facility] [id number] [place] [address] 16869- 4401 Sep, [facility] [id number] [place] [address] 17790- 5493 July, [facility] [id number] [place] [address] 07334- 7955 Jun, [facility] [id number] [place] [address] 98445- 2596 Jun, [facility] [id number] [place] [address] 26533- 1502 Jun, Uncontrolled type 2 diabetes mellitus without complication, without long-term 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 E11.65 [facility] [id number] [place] [address] 64583- 6808 May, [facility] [id number] [place] [address] 13703- 4685 May, [facility] [id number] [place] [address] 69533- 1021 Mar, Generalized anxiety disorder F41.1 ; Major depression F32.9 ; Attention deficit hyperactivity disorder, combined type F90.2 ; Amphetamine and psychostimulant abuse, 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 and Cannabis abuse F12.10 [facility] [id number] [place] [address] 66971- 9307 Mar, Type 2 diabetes mellitus with diabetic nephropathy E11.21 ; Type 2 diabetes mellitus with hyperglycemia E11.65 and extermination supervisor 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.4 [facility] [id number] [place] [address] 17973- 4311 Feb, [facility] [address], [place] [address] 5121 Jan, [facility] [id number] [place] [address] 79959- 8999 Dec, [facility] [address], [place] [address] 0339 Dec, Generalized anxiety disorder F41.1 ; Attention deficit hyperactivity disorder, combined type F90.2 and Recurrent major depressive disorder, in partial remission F33.41 [facility] [address], [place] [address] 6098 Dec, Diabetes type 2, uncontrolled E11.65 [facility] [id number] [place] [address] 31966- 7266 Dec, [facility] [id number] [place] [address] 96758- 3645 Dec, [facility] [address] [place] [address] 00703- 9652 Dec, [facility] [address], [place] [address] 8020 Nov, [facility] [address], [place] [address] 2267 Oct, Noncompliance w/medication treatment due to intermit use of medication Z91.14 [facility] [address], [place] [address] 4368 Oct, Noncompliance w/medication treatment due to intermit use of medication Z91.14 [facility] [address], [place] [address] 0391 Oct, [facility] [address] 1471 Oct, [facility] [address], [place] [address]- 2340 Oct, [facility] [address], [place] [address]- 6368 Sep, Diabetic polyneuropathy associated with type 2 diabetes mellitus E11.42 [facility] [id number] [place] [address] 30910- 6518 Sep, [facility] [id number] [place] [address] 44589- 5845 Aug, Diabetes type 2, uncontrolled E11.65 and Diabetic polyneuropathy associated with type 2 diabetes mellitus E11.42 [facility] [address], [place] [address]- 4676 Aug, [facility] [id number] [place] [address] 12087- 0753 Aug, [place] [id number] [place] [address] 12774- 1211 July, Generalized anxiety disorder F41.1 and Major depression F32.9 [place] [address], [place] [address]- 8473 July, [facility] [address] [place] [address] 45729- 7486 Jun, [facility] [address], [place] [address]- 1905 May, 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 ; Diabetes type 2, uncontrolled E11.65 ; Gastroenteritis K52.9 ; Malaise R53.81 and Dysrhythmia I49.9 [facility] [address], [place] [address]- 6640 May, [facility] [id number] [place] [address] 74452- 5983 May, [facility] [address], [place] [address]- 7705 Apr, [facility] [address] [place] [address] 87199- 9071 Apr, Type 2 diabetes mellitus with hyperglycemia E11.65 [facility] [address], [place] [address]- 7914 12 Apr, 2015 [facility] [address] 1027 03 Apr, 2015 custodial 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.899 ; Generalized anxiety disorder F41.1 ; Attention deficit hyperactivity disorder, combined type F90.2 and Major depression F32.9 [facility] [id number] [address]- 4426 Mar, [facility] [id number] [place] [address] 34263- 5037 Mar, [facility] [id number] [place] [address] 23411- 4169 Mar, [facility] [id number] [place] [address] 10787- 3608 Mar, [facility] [address], [place] [address]- 4531 Mar, [facility] [address], [place] [address]- 0124 Feb, [facility] [address], [place] [address]- 7571 Feb, [facility] [address], [place] [address]- 7774 Feb, [facility] [address], [place] [address]- 5101 Jan, Diabetes type 2, uncontrolled E11.65 [facility] [address], [place] [address]- 4796 Jan, [facility] [address], [place] [address]- 2036 Jan, [facility] [address], [place] [address]- 6994 Jan, [facility] [address], [place] [address]- 2709 Dec, [facility] [address], [place] [address]- 7139 Dec, [facility] [address], [place] [address]- 4397 Dec, [facility] [id number] [place] [address] 26312- 4308 Dec, Type 2 diabetes mellitus with diabetic nephropathy E11.21 [facility] [id number] [place] [address] 284112- 0006 Dec, [facility] [id number] [place] [address] 78183- 3994 Dec, [facility] [id number] [place] [address] 67222- 9271 Dec, [facility] [address], [place] [address]- 8063 Dec, Attention deficit hyperactivity disorder, combined type F90.2 ; Generalized anxiety disorder F41.1 and Major depression F32.9 [facility] [address], [place] [address]- 1846 Dec, Type 2 diabetes mellitus with diabetic nephropathy E11.21 and Type 2 diabetes mellitus with hyperglycemia E11.65 [facility] [address], [place] [address]- 9079 30 Nov, 2014 [facility] [address], [place] [address]- 4834 17 Nov, 2014 [facility] [id number] [place] [address] 21466- 2142 16 Nov, 2014 [facility] [address], [place] [address]- 0713 Oct, [facility] [address] [place] [address] 62883- 7706 Oct, [facility] [address] 5402 Oct, [facility] [address] [place] [address] 80643- 8816 Sep, Hepatitis C 070.70 and URI, acute 465.9 [facility] [id number] [place] [address] 03493- 0434 Sep, [facility] [id number] [place] [address] 12853- 7732 Sep, [facility] [id number] [place] [address] 25362- 0497 Sep, [facility] [id number] [place] [address] 33243- 0039 Aug, [facility] [id number] [place] [address] 14089- 5248 Aug, [facility] [address] [place] [address] 52491- 0391 Aug, [facility] [id number] [place] [address] 414051- 0359 Aug, [facility] [address], [place] [address]- 9242 Aug, [facility] [address] [place] [address] 14966- 4159 Aug, [facility] [id number] [address]- 8603 Aug, Generalized anxiety disorder 300.02 ; Attention deficit disorder of childhood without mention of hyperactivity 314.00 and Major depressive disorder, recurrent episode, severe, specified as with psychotic behavior 296.34 [facility] [id number], [place] [address]- 9976 July, Diabetes with renal manifestations, type II or unspecified type, uncontrolled 250.42 [facility] [address] [facility] [id number] [place] [address]- 7076 July, [facility] [place] [facility] [address] [id number] [place] [address]- 2416 July, [facility] [place] [facility] [address] [id number] [place] [address]- 5256 July, [facility] [place] [facility] [address] [id number] [place] [address]- 6446 30 Jun, 2014 [facility] [place] [facility] [address] [id number] [place] [address]- 5550 Jun, [facility] [place] [facility] [address] [id number] [place] [address]- 5005 Jun, [facility] [place] [facility] [address] [id number] [place] [address]- 7266 May, [facility] [place] [facility] [address] [id number] [place] [address]- 5521 May, [facility] [place] [facility] [address] [id number] [place] [address]- 2422 May, [facility] [place] [facility] [address] [id number] [place] [address]- 1267 May, [facility] [place] [facility] [address] [id number] [place] [address]- 5417 May, [facility] [place] [facility] [address] [id number] [place] [address]- 1940 May, [facility] [place] [facility] [address] [id number] [place] [address]- 9746 May, [facility] [place] [facility] [address] [id number] [place] [address]- 8636 May, [facility] [place] [facility] [address] [id number] [place] [address]- 1396 May, [facility] [place] [facility] [address] [id number] [place] [address]- 2796 May, [facility] [place] [facility] [address] [id number] [place] [address]- 3138 May, [facility] [place] [facility] [address] [id number] [place] [address]- 2480 May, [facility] [place] [facility] [address] [id number] [place] [address]- 4605 May, [facility] [place] [facility] [address] [id number] [place] [address]- 2177 May, [facility] [place] [facility] [address] [id number] [place] [address]- 9023 Apr, [facility] [place] [facility] [address] [id number] [place] [address]- 3188 Apr, [facility] [place] [facility] [address] [id number] [place] [address]- 2942 Apr, [facility] [place] [facility] [address] [id number] [place] [address]- 7202 Apr, [facility] [place] [facility] [address] [id number] [place] [address]- 1327 Apr, [facility] [place] [facility] [address] [id number] [place] [address]- 0784 Apr, [facility] [place] [facility] [address] [id number] [place] [address]- 6323 Apr, [facility] [place] [facility] [address] [id number] [place] [address]- 7494 Apr, [facility] [place] [facility] [address] [id number] [place] [address]- 7524 Mar, [facility] [place] [facility] [address] [id number] [place] [address]- 2183 Mar, [facility] [place] [facility] [address] [id number] [place] [address]- 8320 Mar, [facility] [place] [facility] [address] [id number] [place] [address]- 7263 Mar, [facility] [address] [id number] [place] [address]- 9340 Mar, [facility] [place] [facility] [address] [id number] [place] [address]- 7966 Mar, [facility] [address] [id number] [place] [address]- 3016 Mar, [facility] [place] [facility] [address] [id number] [place] [address]- 3424 Mar, [facility] [address] [id number] [place] [address]- 0028 Mar, [facility] [place] [facility] [address] [id number] [place] [address]- 3312 Mar, [facility] [place] [facility] [address] [id number] [place] [address]- 7722 Mar, [facility] [address] [id number] [place] [address]- 9218 Mar, [facility] [place] [facility] [address] [id number] [place] [address]- 6239 Mar, [facility] [address] [id number] [place] [address]- 6287 Mar, [facility] [place] [facility] [address] [id number] [place] [address]- 6409 Mar, [facility] [place] [facility] [address] [id number] [place] [address]- 5301 Mar, [facility] [place] [facility] [address] [id number] [place] [address]- 8784 Feb, [facility] [place] [facility] [address] [id number] [place] [address]- 1866 Feb, [facility] [place] [facility] [address] [id number] [place] [address]- 3357 Feb, [facility] [place] [facility] [address] [id number] [place] [address]- 4467 Feb, [facility] [place] [facility] [address] [id number] [place] [address]- 6502 Feb, [facility] [place] [facility] [address] [id number] [place] [address]- 8571 Feb, [facility] [place] [facility] [address] [id number] [place] [address]- 6864 Feb, [facility] [place] [facility] [address] [id number] [place] [address]- 4304 Feb, [facility] [place] [facility] [address] [id number] [place] [address]- 9008 Feb, [facility] [place] [facility] [address] [id number] [place] [address]- 6988 Feb, [facility] [place] [facility] [address] [id number] [place] [address]- 0674 Jan, [facility] [place] [facility] [address] [id number] [place] [address]- 7582 Jan, [facility] [place] [facility] [address] [id number] [place] [address]- 1294 Jan, [facility] [place] [facility] [address] [id number] [place] [address]- 6584 Jan, [facility] [place] [facility] [address] [id number], [place] [address]- 4529 Jan, [facility] [place] [facility] [address] [id number] [place] [address]- 3353 Jan, [facility] [place] [facility] [address] [id number] [place] [address]- 5913 Jan, [facility] [place] [facility] [address] [id number] [place] [address]- 2336 Jan, [facility] [place] [facility] [address] [id number] [place] [address]- 8926 Jan, [facility] [place] [facility] [address] [id number] [place] [address]- 7711 Dec, [facility] [place] [facility] [address] [id number] [place] [address]- 5725 Dec, [facility] [place] [facility] [address] [id number] [place] [address]- 3085 Dec, [facility] [place] [facility] [address] [id number] [place] [address]- 6569 Dec, [facility] [place] [facility] [address] [id number] [place] [address]- 4981 Dec, [facility] [place] [facility] [address] [id number] [place] [address]- 3044 Dec, [facility] [place] [facility] [address] [id number] [place] [address]- 6438 Nov, 2013 [facility] [place] [facility] [address] [id number] [place] [address]- 4400 Nov, 2013 [facility] [place] [facility] [address] [id number] [place] [address]- 0960 Nov, 2013 [facility] [place] [facility] [address] [facility] [id number] [place] [address]- 9906 Nov, 2013 [facility] [place] [facility] [address] [id number] [place] [address]- 9510 Nov, 2013 [facility] [place] [facility] [address] [id number] [place] [address]- 3125 Sep, 2013 [facility] [place] [facility] [address] [id number] [place] [address]- 2792 Nov, 2013 [facility] [place] [facility] [address] [id number] [place] [address]- 4830 Nov, 2013 [facility] [place] [facility] [address] [id number] [place] [address]- 8485 Oct, [facility] [place] [facility] [address] [id number] [place] [address]- 3409 Oct, [facility] [place] [facility] [address] [id number] [place] [address]- 3296 Oct, [facility] [place] [facility] [address] [id number] [place] [address]- 8140 Oct, [facility] [place] [facility] [address] [id number] [place] [address]- 8523 Oct, [facility] [place] [facility] [address] [id number] [place] [address] Oct, [facility] [place] [facility] [address] [id number] [place] [address] Sep, [facility] [place] [facility] [address] [id number] [place] [address] Sep, [facility] [place] [facility] [address] [id number] [place] [address] Sep, [facility] [place] [facility] [address] [id number] [place] [address] Aug, [facility] [place] [facility] [address] [id number] [place] [address] Aug, [facility] [place] [facility] [address] [id number] [place] [address] July, [facility] [place] [facility] [address] [id number] [place] [address] July, [facility] [place] [facility] [address] [id number] [place] [address] Jun, [facility] [place] [facility] [address] [id number] [place] [address] Jun, [facility] [place] [facility] [address] [id number] [place] [address] Jun, [facility] [place] [facility] [address] [id number] [place] [address] Jun, [facility] [place] [facility] [address] [id number] [place] [address] Jun, [facility] [place] [facility] [address] [id number] [place] [address] Jun, [facility] [place] [facility] [address] [id number] [place] [address] Jun, [facility] [place] [facility] [address] [id number] [place] [address] Jun, [facility] [place] [facility] [address] [id number] [place] [address] Jun, [facility] [place] [facility] [address] [id number] [place] [address] Jun, [facility] [place] [facility] [address] [id number] [place] [address] Jun, [facility] [place] [facility] [address] [id number] [place] [address]- [address] Jun, [facility] [place] [facility] [address] [id number] [place] [address] May, [facility] [place] [facility] [address] [id number] [place] [address] May, [facility] [place] [facility] [address] [id number] [place] [address] May, [facility] [place] [facility] [address] [id number] [place] [address] May, [facility] [place] [facility] [address] [id number] [place] [address]- [address] May, [facility] [place] [facility] [address] [id number] [place] [address] Apr, [facility] [place] [facility] [address] [id number] [place] [address] Apr, [facility] [place] [facility] [address] [id number] [place] [address]- [address] 07 Apr, 2013 [facility] [address] [id number] [place] [address] 07 Apr, 2013 [facility] [place] [facility] [address] [id number] [place] [address] 17 Mar, 2013 [facility] [address] [id number] [place] [address] 17 Mar, 2013 [facility] [place] [facility] [address] [id number] [place] [address] Mar, [facility] [address] [id number] [place] [address] Mar, [facility] [address] [id number] [place] [address] Feb, [facility] [address] [id number] [place] [address] Feb, [facility] [address] [id number] [place] [address] Feb, [facility] [address] [id number] [place] [address] Feb, [facility] [address] [id number] [place] [address] Jan, [facility] [address] [id number] [place] [address] Jan, [facility] [facility] [place] [facility] [address] [id number] [place] [address] Jan, [facility] [place] [facility] [address] [id number] [place] [address] Jan, [facility] [place] [facility] [address] [id number] [place] [address] Dec, [facility] [place] [facility] [address] [id number] [place] [address] Nov, [facility] [place] [facility] [address] [id number] [place] [address] Nov, [facility] [place] [facility] [address] [id number] [place] [address] 23 Nov, 2012 [facility] [place] [facility] [address] [id number] [place] [address] 10 Nov, 2012 [facility] [place] [facility] [address] [id number] [place] [address] 09 Nov, 2012 [facility] [place] [facility] [address] [id number] [place] [address] 15 Oct, 2012 [facility] [place] [facility] [address] [id number] [place] [address] Oct, [facility] [place] [facility] [address] [id number] [place] [address] Sep, [facility] [place] [facility] [address] [id number] [place] [address] Sep, [facility] [place] [facility] [address] [id number] [place] [address] Sep, [facility] [place] [facility] [address] [id number] [place] [address] Sep, [facility] [place] [facility] [address] [id number] [place] [address] Sep, [facility] [place] [facility] [address] [id number], [place] [address] Aug, [facility] [place] [facility] [address] [id number] [place] [address] Aug, [facility] [place] [facility] [address] [id number] [place] [address] Aug, [facility] [place] [facility] [address] [id number] [place] [address] Aug, [facility] [place] [facility] [address] [id number] [place] [address] July, [facility] [address] [id number] [place] [address] July, [facility] [address] [id number] [place] [address] July, [facility] [address] [id number] [place] [address] Jun, [facility] [address] [id number] [place] [address] May, [facility] [address] [id number] [place] [address] May, [facility] [address] [id number] [place] [address]- [address] Apr, [facility] [address] [id number] [place] [address] Mar, [facility] [address] [id number] [place] [address] Mar, [facility] [address] [id number] [place] [address] Mar, [facility] [address] [id number] [place] [address] Mar, [facility] [address] [id number] [place] [address] Feb, [facility] [address] [id number] [place] [address] Feb, [facility] [address] [id number] [place] [address] Feb, [facility] [place] [facility] [address] [id number] [place] [address] Feb, [facility] [address] [id number] [place] [address]- [address] 16 Jan, 2012 [facility] [address] [id number] [place] [address] Jan, [facility] [place] [facility] [address] [id number] [place] [address]- [address] Sep, [facility] [place] [facility] [address] [id number] [place] [address] Sep, [facility] [place] [facility] [address] [id number] [place] [address] Aug, [facility] [place] [facility] [address] [id number] [place] [address] Aug, [facility] [place] [facility] [address] [id number] [place] [address] Jun, [facility] [place] [facility] [address] [id number] [place] [address] May, [facility] [place] [facility] [address] [id number] [place] [address] May, [facility] [place] [facility] [address] [id number] [place] [address] Mar, [facility] [place] [facility] [address] [id number] [place] [address] Mar, [facility] [place] [facility] [address] [id number] [place] [address] Feb, [facility] [place] [facility] [address] [id number] [place] [address] Feb, [facility] [place] [facility] [address] [id number] [place] [address]- [address] 12 Feb, 2011 [facility] [place] [facility] [address] [id number] [place] [address]- [address] 14 Dec, 2010 [facility] [place] [facility] [address] [id number] [place] [address] 15 Aug, 2010 [facility] [place] [facility] [address] [id number], [place] [address] May, [facility] [address] [facility] [id number] [place] [address] Mar, [facility] [address] [facility] [id number], [place] [address] Oct, [facility] [address] [facility] [id number], [place] [address] Sep, [facility] [address] [facility] [id number], [place] [address] Jun, IMMUNIZATIONS No Known Immunizations SOCIAL HISTORY Never Assessed REASON FOR VISIT Medication refill request PLAN OF CARE VITAL SIGNS MEDICATIONS Medication Instructions Dosage Frequency Start Date End Date Duration Status Keppra 250 MG Orally Twice a day 1 tablet 12h Sep, 30 day(s) Active RESULTS No Results PROCEDURES No [...]
--- OUTSIDE RECORDS SUMMARY | 2018-02-25 23:37 | XMS REPORT ---
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 Active Problem penitentiary 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.4 Active 207537613 Problem Type 2 diabetes mellitus with diabetic nephropathy E11.21 Active 463572287 Problem Type 2 diabetes mellitus with hyperglycemia E11.65 Active 209833278 Problem Uncontrolled type 2 diabetes mellitus without complication, without long-term 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 E11.65 Active 908259021 Problem Diabetes type 2, uncontrolled E11.65 Active 621687175 Problem Noncompliance of patient with dietary regimen Z91.11 Active 305284596 Problem Mood disorder F39 Active 92894387 Problem Attention deficit hyperactivity disorder (ADHD), predominantly inattentive type F90.0 Active 07224941 Problem Major depression, chronic F32.9 Active 327516872 Problem Generalized anxiety disorder F41.1 Active 73484824 Problem Noncompliance w/medication treatment due to intermit use of medication Z91.14 Active 332441589 Problem Recurrent major depressive disorder, in partial remission F33.41 Active 76310776 Problem intermediate manager 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.899 Active 847305987 Problem Attention deficit hyperactivity disorder, combined type F90.2 Active 29100662 ALLERGIES No Information ENCOUNTERS Encounter Location Date Diagnosis [facility] [address] [facility] [id number] [address] Oct, [facility] [id number] [place] [address] 53706- 3503 Oct, [place] [place] [id number] [place] [address] 12531- 5473 Aug, [facility] [id number] [place] [address] 26356- 2239 July, Generalized anxiety disorder F41.1 ; Bipolar II disorder F31.81 ; Attention deficit hyperactivity disorder, combined type F90.2 ; Cannabis abuse F12.10 and Amphetamine and psychostimulant abuse, 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 [place] [place] [id number] [place] [address] 07378- 6316 Mar, Type 2 diabetes mellitus with diabetic nephropathy E11.21 [facility] [id number] [place] [address] 28667- 2956 Mar, Anxiety F41.9 ; Diabetes type 2, uncontrolled E11.65 and Tooth infection K04.7 [place] [id number] [place] [address] 92302- 1107 Mar, Type 2 diabetes mellitus with diabetic nephropathy E11.21 [place] [id number] [place] [address] 02678- 5916 Feb, [facility] [place] [id number] [place] [address] 40620- 5119 Jan, Type 2 diabetes mellitus with diabetic nephropathy E11.21 [facility] [place] [id number] [place] [address] 23039- 9662 Dec, Type 2 diabetes mellitus with diabetic nephropathy E11.21 [place] [id number] [place] [address] 43697- 4717 Nov, Mood disorder F39 and Type 2 diabetes mellitus with hyperglycemia E11.65 [place] [place] [id number] [place] [address] 58940- 1453 Oct, Mood disorder F39 and Type 2 diabetes mellitus with hyperglycemia E11.65 [place] [id number] [place] [address] 16334- 9670 Sep, Type 2 diabetes mellitus with diabetic nephropathy E11.21 and Seizures R56.9 [facility] [address] [address] 9551 Sep, [facility] [id number] [place] [address] 77176- 3937 Sep, [facility] [id number] [place] [address] 58689- 7579 Sep, [facility] [id number] [place] [address] 13825- 8059 July, [facility] [id number] [place] [address] 26403- 9827 Jun, [facility] [id number] [place] [address] 12601- 4284 Jun, [facility] [id number] [place] [address] 37872- 2773 Jun, Uncontrolled type 2 diabetes mellitus without complication, without long-term 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 E11.65 [facility] [id number] [place] [address] 50147- 6089 May, [facility] [id number] [place] [address] 36433- 6769 May, [facility] [id number] [place] [address] 66196- 7291 Mar, Generalized anxiety disorder F41.1 ; Major depression F32.9 ; Attention deficit hyperactivity disorder, combined type F90.2 ; Amphetamine and psychostimulant abuse, 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 and Cannabis abuse F12.10 [facility] [id number] [place] [address] 65827- 0114 Mar, Type 2 diabetes mellitus with diabetic nephropathy E11.21 ; Type 2 diabetes mellitus with hyperglycemia E11.65 and intermediate manager 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.4 [facility] [id number] [place] [address] 77841- 3033 Feb, [facility] [address] [address]- 6898 Jan, [facility] [id number] [place] [address] 53806- 4434 Dec, [facility] [address] [address]- 5559 Dec, Generalized anxiety disorder F41.1 ; Attention deficit hyperactivity disorder, combined type F90.2 and Recurrent major depressive disorder, in partial remission F33.41 [facility] [address] [address]- 4786 Dec, Diabetes type 2, uncontrolled E11.65 [facility] [id number] [place] [address] 59878- 4065 Dec, [facility] [id number] [place] [address] 85420- 6328 Dec, [facility] [id number] [place] [address] 91634- 4893 Dec, [facility] [address] [address]- 9346 Nov, [facility] [address], [place] [address]- 3974 Oct, Noncompliance w/medication treatment due to intermit use of medication Z91.14 [facility] [address], [place] [address]- 2289 Oct, Noncompliance w/medication treatment due to intermit use of medication Z91.14 [facility] [address], [place] [address]- 4750 Oct, [facility] [address] 2155 Oct, [facility] [address], [place] [address]- 7091 Oct, [facility] [address], [place] [address]- 5546 Sep, Diabetic polyneuropathy associated with type 2 diabetes mellitus E11.42 [facility] [id number] [place] [address] 84258- 7182 Sep, [facility] [id number] [place] [address] 82242- 0270 Aug, Diabetes type 2, uncontrolled E11.65 and Diabetic polyneuropathy associated with type 2 diabetes mellitus E11.42 [facility] [address], [place] [address]- 8224 Aug, [facility] [id number] [place] [address] 90485- 3000 Aug, [place] [id number] [place] [address] 90261- 4000 July, Generalized anxiety disorder F41.1 and Major depression F32.9 [place] [address], [place] [address]- 0243 July, [facility] [id number] [place] [address] 13381- 3013 Jun, [facility] [address], [place] [address]- 8555 May, intermediate manager 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.899 ; Diabetes type 2, uncontrolled E11.65 ; Gastroenteritis K52.9 ; Malaise R53.81 and Dysrhythmia I49.9 [facility] [address], [place] [address]- 6654 May, [facility] [id number] [place] [address] 99925- 5180 May, [facility] [address], [place] [address]- 1356 Apr, [facility] [id number] [place] [address] 10838- 4586 Apr, Type 2 diabetes mellitus with hyperglycemia E11.65 [facility] [address], [place] [address]- 5927 12 Apr, 2015 [facility] [address] 2629 03 Apr, 2015 penitentiary 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.899 ; Generalized anxiety disorder F41.1 ; Attention deficit hyperactivity disorder, combined type F90.2 and Major depression F32.9 [facility] [address] [place], [place] [address]- 0277 Mar, [facility] [id number] [place] [address] 13969- 2369 Mar, [facility] [id number] [place] [address] 68402- 4038 Mar, [facility] [id number] [place] [address] 15018- 2467 Mar, [facility] [address], [place] [address]- 0759 Mar, [facility] [address], [place] [address]- 0146 Feb, [facility] [address], [place] [address]- 9513 Feb, [facility] [address], [place] [address]- 7449 Feb, [facility] [address], [place] [address]- 0864 Jan, Diabetes type 2, uncontrolled E11.65 [facility] [address], [place] [address]- 8706 Jan, [facility] [address], [place] [address]- 1566 Jan, [facility] [address], [place] [address]- 8061 Jan, [facility] [address], [place] [address]- 5094 Dec, [facility] [address], [place] [address]- 3948 Dec, [facility] [address], [place] [address]- 7403 Dec, [facility] [id number] [place] [address] 93368- 1509 Dec, Type 2 diabetes mellitus with diabetic nephropathy E11.21 [facility] [id number] [place] [address] 075184- 4582 Dec, [facility] [id number] [place] [address] 59271- 4359 Dec, [facility] [id number] [place] [address] 83923- 3327 Dec, [facility] [address], [place] [address]- 6319 Dec, Attention deficit hyperactivity disorder, combined type F90.2 ; Generalized anxiety disorder F41.1 and Major depression F32.9 [facility] [address], [place] [address]- 5974 Dec, Type 2 diabetes mellitus with diabetic nephropathy E11.21 and Type 2 diabetes mellitus with hyperglycemia E11.65 [facility] [address], [place] [address]- 5851 30 Nov, 2014 [facility] [address], [place] [address]- 4023 17 Nov, 2014 [facility] [id number] [place] [address] 95558- 8462 16 Nov, 2014 [facility] [address], [place] [address]- 1705 Oct, [facility] [id number] [place] [address] 97811- 5416 Oct, [facility] [address] 4579 Oct, [facility] [id number] [place] [address] 68910- 3116 Sep, Hepatitis C 070.70 and URI, acute 465.9 [facility] [id number] [place] [address] 40584- 0171 Sep, [facility] [id number] [place] [address] 24406- 0526 Sep, [facility] [id number] [place] [address] 14608- 4587 Sep, [facility] [id number] [place] [address] 27039- 9212 Aug, [facility] [id number] [place] [address] 18540- 2924 Aug, [facility] [id number] [place] [address] 53849- 9240 Aug, [facility] [id number] [place] [address] 657790- 3336 Aug, [facility] [address], [place] [address]- 7496 Aug, [facility] [id number] [place] [address] 57303- 0575 Aug, [facility] [id number] [address]- 5968 Aug, Generalized anxiety disorder 300.02 ; Attention deficit disorder of childhood without mention of hyperactivity 314.00 and Major depressive disorder, recurrent episode, severe, specified as with psychotic behavior 296.34 [facility] [id number] [address]- 8029 July, Diabetes with renal manifestations, type II or unspecified type, uncontrolled 250.42 [facility] [address] [facility] [id number] [place] [address]- 5586 July, [facility] [place] [facility] [address] [id number] [place] [address]- 6566 July, [facility] [place] [facility] [address] [id number] [place] [address]- 0306 July, [facility] [place] [facility] [address] [id number] [place] [address]- 2210 30 Jun, 2014 [facility] [place] [facility] [address] [id number] [place] [address]- 4352 Jun, [facility] [place] [facility] [address] [id number] [place] [address]- 2557 Jun, [facility] [place] [facility] [address] [id number] [place] [address]- 3482 May, [facility] [place] [facility] [address] [id number] [place] [address]- 1790 May, [facility] [place] [facility] [address] [id number] [place] [address]- 8548 May, [facility] [place] [facility] [address] [id number] [place] [address]- 7489 May, [facility] [place] [facility] [address] [id number] [place] [address]- 3729 May, [facility] [place] [facility] [address] [id number] [place] [address]- 5481 May, [facility] [place] [facility] [address] [id number] [place] [address]- 6207 May, [facility] [place] [facility] [address] [id number] [place] [address]- 1481 May, [facility] [place] [facility] [address] [id number] [place] [address]- 5816 May, [facility] [place] [facility] [address] [id number] [place] [address]- 0205 May, [facility] [place] [facility] [address] [id number] [place] [address]- 5844 May, [facility] [place] [facility] [address] [id number] [place] [address]- 1568 May, [facility] [place] [facility] [address] [id number] [place] [address]- 9903 May, [facility] [place] [facility] [address] [id number] [place] [address]- 6661 May, [facility] [place] [facility] [address] [id number] [place] [address]- 2486 Apr, [facility] [place] [facility] [address] [id number] [place] [address]- 2617 Apr, [facility] [place] [facility] [address] [id number] [place] [address]- 1566 Apr, [facility] [place] [facility] [address] [id number] [place] [address]- 8140 Apr, [facility] [place] [facility] [address] [id number] [place] [address]- 6321 Apr, [facility] [place] [facility] [address] [id number] [place] [address]- 9753 Apr, [facility] [place] [facility] [address] [id number] [place] [address]- 7450 Apr, [facility] [place] [facility] [address] [id number] [place] [address]- 0334 Apr, [facility] [place] [facility] [address] [id number] [place] [address]- 5842 Mar, [facility] [place] [facility] [address] [id number] [place] [address]- 0139 Mar, [facility] [place] [facility] [address] [id number] [place] [address]- 5161 Mar, [facility] [place] [facility] [address] [id number] [place] [address]- 2059 Mar, [facility] [address] [id number] [place] [address]- 7032 Mar, [facility] [place] [facility] [address] [id number] [place] [address]- 9895 Mar, [facility] [address] [id number] [place] [address]- 8682 Mar, [facility] [place] [facility] [address] [id number] [place] [address]- 4306 Mar, [facility] [address] [id number] [place] [address]- 8052 Mar, [facility] [place] [facility] [address] [id number] [place] [address]- 0027 Mar, [facility] [place] [facility] [address] [id number] [place] [address]- 1826 Mar, [facility] [address] [id number] [place] [address]- 7494 Mar, [facility] [place] [facility] [address] [id number] [place] [address]- 2766 Mar, [facility] [address] [id number] [place] [address]- 2310 Mar, [facility] [place] [facility] [address] [id number] [place] [address]- 4030 Mar, [facility] [place] [facility] [address] [id number] [place] [address]- 8287 Mar, [facility] [place] [facility] [address] [id number] [place] [address]- 6453 Feb, [facility] [place] [facility] [address] [id number] [place] [address]- 8866 Feb, [facility] [place] [facility] [address] [id number] [place] [address]- 5506 Feb, [facility] [place] [facility] [address] [id number] [place] [address]- 6303 Feb, [facility] [place] [facility] [address] [id number] [place] [address]- 4558 Feb, [facility] [place] [facility] [address] [id number] [place] [address]- 3459 Feb, [facility] [place] [facility] [address] [id number] [place] [address]- 6273 Feb, [facility] [place] [facility] [address] [id number] [place] [address]- 6089 Feb, [facility] [place] [facility] [address] [id number] [place] [address]- 5874 Feb, [facility] [place] [facility] [address] [id number] [place] [address]- 3995 Feb, [facility] [place] [facility] [address] [id number] [place] [address]- 8736 Jan, [facility] [place] [facility] [address] [id number] [place] [address]- 3731 Jan, [facility] [place] [facility] [address] [id number] [place] [address]- 6173 Jan, [facility] [place] [facility] [address] [id number] [place] [address]- 7151 Jan, [facility] [place] [facility] [address] [id number], [place] [address]- 8195 Jan, [facility] [place] [facility] [address] [id number] [place] [address]- 8356 Jan, [facility] [place] [facility] [address] [id number] [place] [address]- 94[address] Jan, [facility] [place] [facility] [address] [id number] [place] [address] Jan, [facility] [place] [facility] [address] [id number] [place] [address] Jan, [facility] [place] [facility] [address] [id number] [place] [address] Dec, [facility] [place] [facility] [address] [id number] [place] [address] Dec, [facility] [place] [facility] [address] [id number] [place] [address] Dec, [facility] [place] [facility] [address] [id number] [place] [address] Dec, [facility] [place] [facility] [address] [id number] [place] [address] Dec, [facility] [place] [facility] [address] [id number] [place] [address] Dec, [facility] [place] [facility] [address] [id number] [place] [address] Nov, 2013 [facility] [place] [facility] [address] [id number] [place] [address]- [address] Nov, 2013 [facility] [place] [facility] [address] [id number] [place] [address]- [address] Nov, 2013 [facility] [place] [facility] [address] [facility] [id number] [place] [address]- [address] Nov, 2013 [facility] [place] [facility] [address] [id number] [place] [address] Nov, 2013 [facility] [place] [facility] [address] [id number] [place] [address] Sep, 2013 [facility] [place] [facility] [address] [id number] [place] [address]- [address] Nov, 2013 [facility] [place] [facility] [address] [id number] [place] [address]- [address] Nov, 2013 [facility] [place] [facility] [address] [id number] [place] [address]- [address] Oct, [facility] [place] [facility] [address] [id number] [place] [address] Oct, [facility] [place] [facility] [address] [id number] [place] [address] Oct, [facility] [place] [facility] [address] [id number] [place] [address] Oct, [facility] [place] [facility] [address] [id number] [place] [address]- [address] Oct, [facility] [place] [facility] [address] [id number] [place] [address] Oct, [facility] [place] [facility] [address] [id number] [place] [address]- [address] Sep, [facility] [place] [facility] [address] [id number] [place] [address]- [address] Sep, [facility] [place] [facility] [address] [id number] [place] [address]- [address] Sep, [facility] [place] [facility] [address] [id number] [place] [address] Aug, [facility] [place] [facility] [address] [id number] [place] [address]- [address] Aug, [facility] [place] [facility] [address] [id number] [place] [address] July, [facility] [place] [facility] [address] [id number] [place] [address]- [address] July, [facility] [place] [facility] [address] [id number] [place] [address]- [address] Jun, [facility] [place] [facility] [address] [id number] [place] [address] Jun, [facility] [place] [facility] [address] [id number] [place] [address] Jun, [facility] [place] [facility] [address] [id number] [place] [address]- [address] Jun, [facility] [place] [facility] [address] [id number] [place] [address]- [address] Jun, [facility] [place] [facility] [address] [id number] [place] [address]- [address] Jun, [facility] [place] [facility] [address] [id number] [place] [address]- [address] Jun, [facility] [place] [facility] [address] [id number] [place] [address]- [address] Jun, [facility] [place] [facility] [address] [id number] [place] [address]- [address] Jun, [facility] [place] [facility] [address] [id number] [place] [address]- [address] Jun, [facility] [place] [facility] [address] [id number] [place] [address]- [address] Jun, [facility] [place] [facility] [address] [id number] [place] [address] Jun, [facility] [place] [facility] [address] [id number] [place] [address] May, [facility] [place] [facility] [address] [id number] [place] [address] May, [facility] [place] [facility] [address] [id number] [place] [address] May, [facility] [place] [facility] [address] [id number] [place] [address] May, [facility] [place] [facility] [address] [id number] [place] [address] May, [facility] [place] [facility] [address] [id number] [place] [address] Apr, [facility] [place] [facility] [address] [id number] [place] [address] Apr, [facility] [place] [facility] [address] [id number] [place] [address] 07 Apr, 2013 [facility] [address] [id number] [place] [address] 07 Apr, 2013 [facility] [place] [facility] [address] [id number] [place] [address] 17 Mar, 2013 [facility] [address] [id number] [place] [address]46 17 Mar, 2013 [facility] [place] [facility] [address] [id number] [place] [address] Mar, [facility] [address] [id number] [place] [address] Mar, [facility] [address] [id number] [place] [address] Feb, [facility] [address] [id number] [place] [address] Feb, [facility] [address] [id number] [place] [address] Feb, [facility] [address] [id number] [place] [address] Feb, [facility] [address] [id number] [place] [address] Jan, [facility] [place] [facility] [address] [id number] [place] [address] Jan, [facility] [place] [facility] [address] [id number] [place] [address] Jan, [facility] [place] [facility] [address] [id number] [place] [address]- [address] Jan, [facility] [place] [facility] [address] [id number] [place] [address] Dec, [facility] [place] [facility] [address] [id number] [place] [address] Nov, [facility] [place] [facility] [address] [id number] [place] [address] Nov, [facility] [place] [facility] [address] [id number] [place] [address] 23 Nov, 2012 [facility] [place] [facility] [address] [id number] [place] [address]79 10 Nov, 2012 [facility] [place] [facility] [address] [id number] [place] [address]- [address] 09 Nov, 2012 [facility] [place] [facility] [address] [id number] [place] [address] 15 Oct, 2012 [facility] [place] [facility] [address] [id number] [place] [address] Oct, [facility] [place] [facility] [address] [id number] [place] [address]- [address] Sep, [facility] [place] [facility] [address] [id number] [place] [address]- 44[address] Sep, [facility] [place] [facility] [address] [id number] [place] [address]- [address]162 Sep, [facility] [place] [facility] [address] [id number] [place] [address]- 2815 Sep, [facility] [place] [facility] [address] [id number] [place] [address] Sep, [facility] [place] [facility] [address] [id number], [place] [address] Aug, [facility] [place] [facility] [address] [id number] [place] [address] Aug, [facility] [place] [facility] [address] [id number] [place] [address] 2818 Aug, [facility] [place] [facility] [address] [id number] [place] [address]146 Aug, [facility] [place] [facility] [address] [id number] [place] [address] July, [facility] [address] [id number] [place] [address] 47[address] July, [facility] [address] [id number] [place] [address] 94[address] July, [facility] [address] [id number] [place] [address]- [address] Jun, [facility] [address] [id number] [place] [address]- 1709 May, [facility] [address] [id number] [place] [address]- [address] May, [facility] [address] [id number] [place] [address]- [address] Apr, [facility] [address] [id number] [place] [address]- 1516 Mar, [facility] [address] [id number] [place] [address] 43[address] Mar, [facility] [address] [id number] [place] [address] Mar, [facility] [address] [id number] [place] [address]- 2894 Mar, [facility] [address] [id number] [place] [address]- 4137 Feb, [facility] [address] [id number] [place] [address]- [address]647 Feb, [facility] [address] [id number] [place] [address] 9995 Feb, [facility] [place] [facility] [address] [id number] [place] [address]- 2055 Feb, [facility] [address] [id number] [place] [address]- [address] 16 Jan, 2012 [facility] [address] [id number] [place] [address]- [address] Jan, [facility] [place] [facility] [address] [id number] [place] [address]- [address]76 Sep, [facility] [place] [facility] [address] [id number] [place] [address]- 2546 Sep, [facility] [place] [facility] [address] [id number] [place] [address]- 7426 Aug, [facility] [place] [facility] [address] [id number] [place] [address]- 6763 Aug, [facility] [place] [facility] [address] [id number] [place] [address]- [address]136 Jun, [facility] [place] [facility] [address] [id number] [place] [address]- 3456 May, [facility] [place] [facility] [address] [id number] [place] [address]- 8764 May, [facility] [place] [facility] [address] [id number] [place] [address]- [address] Mar, [facility] [place] [facility] [address] [id number] [place] [address]- 7266 Mar, [facility] [place] [facility] [address] [id number] [place] [address]- 1154 Feb, [facility] [place] [facility] [address] [id number] [place] [address]- 5766 Feb, [facility] [place] [facility] [address] [id number] [place] [address]- 2882 12 Feb, 2011 [facility] [place] [facility] [address] [id number] [place] [address]- 0916 14 Dec, 2010 [facility] [place] [facility] [address] [id number] [place] [address]- [address]156 15 Aug, 2010 [facility] [place] [facility] [address] [id number], [place] [address]- [address] May, [facility] [address] [facility] [id number] [place] [address] Mar, [facility] [address] [id number], [place] [address] Oct, [facility] [address] [facility] [id number], [place] [address]- [address] Sep, [facility] [address] [facility] [id number], [place] [address] Jun, IMMUNIZATIONS No Known Immunizations SOCIAL HISTORY Never Assessed REASON FOR VISIT med clarification PLAN OF CARE VITAL SIGNS MEDICATIONS Unknown [...]
[2018-02-25] MEDS ORDERED: LEVETIRACETAM 500 MG/5 ML (KEPPRA) VIAL IV ONE ×2 (23:38→23:40)
--- OUTSIDE RECORDS SUMMARY | 2018-02-25 23:38 | XMS REPORT ---
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 Active Problem senior living 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.4 Active 877686470 Problem Type 2 diabetes mellitus with diabetic nephropathy E11.21 Active 296668967 Problem Type 2 diabetes mellitus with hyperglycemia E11.65 Active 103962905 Problem Uncontrolled type 2 diabetes mellitus without complication, without long-term 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 E11.65 Active 823499357 Problem Diabetes type 2, uncontrolled E11.65 Active 918623057 Problem Noncompliance of patient with dietary regimen Z91.11 Active 132793461 Problem Mood disorder F39 Active 72003407 Problem Attention deficit hyperactivity disorder (ADHD), predominantly inattentive type F90.0 Active 07410159 Problem Major depression, chronic F32.9 Active 511716751 Problem Generalized anxiety disorder F41.1 Active 77353900 Problem Noncompliance w/medication treatment due to intermit use of medication Z91.14 Active 424093246 Problem Recurrent major depressive disorder, in partial remission F33.41 Active 17391152 Problem 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 Active 922364285 Problem Attention deficit hyperactivity disorder, combined type F90.2 Active 01628780 ALLERGIES No Information ENCOUNTERS Encounter Location Date Diagnosis [facility] [address] [facility] [id number] [address] Oct, [facility] [id number] [place] [address] 97223- 8304 Oct, [place] [id number] [place] [address] 10352- 2304 Aug, [place] [id number] [place] [address] 19608- 4476 July, Generalized anxiety disorder F41.1 ; Bipolar II disorder F31.81 ; Attention deficit hyperactivity disorder, combined type F90.2 ; Cannabis abuse F12.10 and Amphetamine and psychostimulant abuse, 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 [place] [id number] [place] [address] 20396- 3404 Mar, Type 2 diabetes mellitus with diabetic nephropathy E11.21 [place] [id number] [place] [address] 97948- 3936 Mar, Anxiety F41.9 ; Diabetes type 2, uncontrolled E11.65 and Tooth infection K04.7 [place] [id number] [place] [address] 39357- 3439 Mar, Type 2 diabetes mellitus with diabetic nephropathy E11.21 [place] [id number] [place] [address] 25013- 1254 Feb, [place] [id number] [place] [address] 86085- 5400 Jan, Type 2 diabetes mellitus with diabetic nephropathy E11.21 [place] [id number] [place] [address] 77082- 7445 Dec, Type 2 diabetes mellitus with diabetic nephropathy E11.21 [place] [id number] [place] [address] 27357- 8489 Nov, Mood disorder F39 and Type 2 diabetes mellitus with hyperglycemia E11.65 [place] [id number] [place] [address] 36351- 5196 Oct, Mood disorder F39 and Type 2 diabetes mellitus with hyperglycemia E11.65 [place] [id number] [place] [address] 56005- 4761 Sep, Type 2 diabetes mellitus with diabetic nephropathy E11.21 and Seizures R56.9 [facility] [address] [address] 6623 Sep, [facility] [id number] [place] [address] 69484- 2024 Sep, [facility] [id number] [place] [address] 85290- 4007 Sep, [facility] [id number] [place] [address] 41685- 2445 July, [facility] [id number] [place] [address] 21702- 1410 Jun, [facility] [id number] [place] [address] 34928- 1867 Jun, [facility] [id number] [place] [address] 00648- 2186 Jun, Uncontrolled type 2 diabetes mellitus without complication, without long-term 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 E11.65 [facility] [id number] [place] [address] 73236- 9578 May, [facility] [id number] [place] [address] 84339- 3143 May, [facility] [id number] [place] [address] 27390- 2297 Mar, Generalized anxiety disorder F41.1 ; Major depression F32.9 ; Attention deficit hyperactivity disorder, combined type F90.2 ; Amphetamine and psychostimulant abuse, 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 and Cannabis abuse F12.10 [facility] [id number] [place] [address] 84146- 1982 Mar, Type 2 diabetes mellitus with diabetic nephropathy E11.21 ; Type 2 diabetes mellitus with hyperglycemia E11.65 and 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.4 [facility] [id number] [place] [address] 17573- 5341 Feb, [facility] [address] [address] 3141 Jan, [facility] [id number] [place] [address] 32620- 0950 Dec, [facility] [address] [address]- 9856 Dec, Generalized anxiety disorder F41.1 ; Attention deficit hyperactivity disorder, combined type F90.2 and Recurrent major depressive disorder, in partial remission F33.41 [facility] [address] [address]- 6727 Dec, Diabetes type 2, uncontrolled E11.65 [facility] [id number] [place] [address] 35798- 5390 Dec, [facility] [id number] [place] [address] 23829- 7899 Dec, [facility] [id number] [place] [address] 91818- 0608 Dec, [facility] [address] [address]- 1061 Nov, [facility] [address] [address]- 9365 Oct, Noncompliance w/medication treatment due to intermit use of medication Z91.14 [facility] [address] [address]- 1006 Oct, Noncompliance w/medication treatment due to intermit use of medication Z91.14 [facility] [address], [place] [address]- 3516 Oct, [facility] [address] 2276 Oct, [facility] [address] [address]- 1700 Oct, [facility] [address], [place] [address]- 2709 Sep, Diabetic polyneuropathy associated with type 2 diabetes mellitus E11.42 [facility] [id number] [place] [address] 14063- 8423 Sep, [facility] [id number] [place] [address] 82416- 0380 Aug, Diabetes type 2, uncontrolled E11.65 and Diabetic polyneuropathy associated with type 2 diabetes mellitus E11.42 [facility] [address] [address]- 5275 Aug, [facility] [id number] [place] [address] 80646- 0157 Aug, [place] [id number] [place] [address] 72628- 7113 July, Generalized anxiety disorder F41.1 and Major depression F32.9 [place] [address] [address]- 5884 July, [facility] [id number] [place] [address] 57674- 0834 Jun, [facility] [address], [place] [address]- 0735 May, 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 ; Diabetes type 2, uncontrolled E11.65 ; Gastroenteritis K52.9 ; Malaise R53.81 and Dysrhythmia I49.9 [facility] [address], [place] [address]- 7532 May, [facility] [id number] [place] [address] 51031- 2127 May, [facility] [address], [place] [address]- 6357 Apr, [facility] [id number] [place] [address] 45294- 6040 Apr, Type 2 diabetes mellitus with hyperglycemia E11.65 [facility] [address], [place] [address]- 0576 12 Apr, 2015 [facility] [address] 0695 03 Apr, 2015 senior living 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.899 ; Generalized anxiety disorder F41.1 ; Attention deficit hyperactivity disorder, combined type F90.2 and Major depression F32.9 [facility] [id number] [address]- 6597 Mar, [facility] [id number] [place] [address] 82570- 9292 Mar, [facility] [id number] [place] [address] 33108- 8276 Mar, [facility] [id number] [place] [address] 55274- 2413 Mar, [facility] [address], [place] [address]- 5221 Mar, [facility] [address], [place] [address]- 9032 Feb, [facility] [address], [place] [address]- 2191 Feb, [facility] [address], [place] [address]- 3084 Feb, [facility] [address], [place] [address]- 5266 Jan, Diabetes type 2, uncontrolled E11.65 [facility] [address], [place] [address]- 4846 Jan, [facility] [address], [place] [address]- 0516 Jan, [facility] [address], [place] [address]- 0565 Jan, [facility] [address], [place] [address]- 7265 Dec, [facility] [address], [place] [address]- 8660 Dec, [facility] [address] [address]- 7568 Dec, [facility] [id number] [place] [address] 42393- 9835 Dec, Type 2 diabetes mellitus with diabetic nephropathy E11.21 [facility] [id number] [place] [address] 841929- 4297 Dec, [facility] [id number] [place] [address] 50238- 6284 Dec, [facility] [id number] [place] [address] 27670- 3974 Dec, [facility] [address], [place] [address]- 2392 Dec, Attention deficit hyperactivity disorder, combined type F90.2 ; Generalized anxiety disorder F41.1 and Major depression F32.9 [facility] [address], [place] [address]- 1830 Dec, Type 2 diabetes mellitus with diabetic nephropathy E11.21 and Type 2 diabetes mellitus with hyperglycemia E11.65 [facility] [address], [place] [address]- 8760 30 Nov, 2014 [facility] [address], [place] [address]- 0827 17 Nov, 2014 [facility] [id number] [place] [address] 49572- 5114 16 Nov, 2014 [facility] [address], [place] [address]- 9120 Oct, [facility] [id number] [place] [address] 67873- 2116 Oct, [facility] [address] 0295 Oct, [facility] [id number] [place] [address] 56368- 8586 Sep, Hepatitis C 070.70 and URI, acute 465.9 [facility] [id number] [place] [address] 98151- 7360 Sep, [facility] [id number] [place] [address] 94306- 0893 Sep, [facility] [id number] [place] [address] 72583- 5832 Sep, [facility] [id number] [place] [address] 75655- 6093 Aug, [facility] [id number] [place] [address] 33224- 5981 Aug, [facility] [id number] [place] [address] 52118- 9516 Aug, [facility] [id number] [place] [address] 552191- 1819 Aug, [facility] [address], [place] [address]- 6323 Aug, [facility] [id number] [place] [address] 53655- 9134 Aug, [facility] [id number] [address]- 2666 Aug, Generalized anxiety disorder 300.02 ; Attention deficit disorder of childhood without mention of hyperactivity 314.00 and Major depressive disorder, recurrent episode, severe, specified as with psychotic behavior 296.34 [facility] [id number] [address]- 1930 July, Diabetes with renal manifestations, type II or unspecified type, uncontrolled 250.42 [facility] [address] [facility] [id number] [place] [address]- 9276 July, [facility] [place] [facility] [address] [id number] [place] [address]- 7066 July, [facility] [place] [facility] [address] [id number] [place] [address]- 7366 July, [facility] [place] [facility] [address] [id number] [place] [address]- 9858 30 Jun, 2014 [facility] [place] [facility] [address] [id number] [place] [address]- 6664 Jun, [facility] [place] [facility] [address] [id number] [place] [address]- 1419 Jun, [facility] [place] [facility] [address] [id number] [place] [address]- 1776 May, [facility] [place] [facility] [address] [id number] [place] [address]- 4555 May, [facility] [place] [facility] [address] [id number] [place] [address]- 5188 May, [facility] [place] [facility] [address] [id number] [place] [address]- 9236 May, [facility] [place] [facility] [address] [id number] [place] [address]- 5455 May, [facility] [place] [facility] [address] [id number] [place] [address]- 5028 May, [facility] [place] [facility] [address] [id number] [place] [address]- 7383 May, [facility] [place] [facility] [address] [id number] [place] [address]- 5506 May, [facility] [place] [facility] [address] [id number] [place] [address]- 1256 May, [facility] [place] [facility] [address] [id number] [place] [address]- 8236 May, [facility] [place] [facility] [address] [id number] [place] [address]- 7456 May, [facility] [place] [facility] [address] [id number] [place] [address]- 8509 May, [facility] [place] [facility] [address] [id number] [place] [address]- 6110 May, [facility] [place] [facility] [address] [id number] [place] [address]- 7599 May, [facility] [place] [facility] [address] [id number] [place] [address]- 8055 Apr, [facility] [place] [facility] [address] [id number] [place] [address]- 8551 Apr, [facility] [place] [facility] [address] [id number] [place] [address]- 4084 Apr, [facility] [place] [facility] [address] [id number] [place] [address]- 2110 Apr, [facility] [place] [facility] [address] [id number] [place] [address]- 4915 Apr, [facility] [place] [facility] [address] [id number] [place] [address]- 0528 Apr, [facility] [place] [facility] [address] [id number] [place] [address]- 8503 Apr, [facility] [place] [facility] [address] [id number] [place] [address]- 7673 Apr, [facility] [place] [facility] [address] [id number] [place] [address]- 5050 Mar, [facility] [place] [facility] [address] [id number] [place] [address]- 9371 Mar, [facility] [place] [facility] [address] [id number] [place] [address]- 3759 Mar, [facility] [place] [facility] [address] [id number] [place] [address]- 2018 Mar, [facility] [address] [id number] [place] [address]- 2278 Mar, [facility] [place] [facility] [address] [id number] [place] [address]- 9637 Mar, [facility] [address] [id number] [place] [address]- 4312 Mar, [facility] [place] [facility] [address] [id number] [place] [address]- 6052 Mar, [facility] [address] [id number] [place] [address]- 0621 Mar, [facility] [place] [facility] [address] [id number] [place] [address]- 3519 Mar, [facility] [place] [facility] [address] [id number] [place] [address]- 2821 Mar, [facility] [address] [id number] [place] [address]- 4331 Mar, [facility] [place] [facility] [address] [id number] [place] [address]- 2085 Mar, [facility] [address] [id number] [place] [address]- 7942 Mar, [facility] [place] [facility] [address] [id number] [place] [address]- 2675 Mar, [facility] [place] [facility] [address] [id number] [place] [address]- 1287 Mar, [facility] [place] [facility] [address] [id number] [place] [address]- 5467 Feb, [facility] [place] [facility] [address] [id number] [place] [address]- 0516 Feb, [facility] [place] [facility] [address] [id number] [place] [address]- 5465 Feb, [facility] [place] [facility] [address] [id number] [place] [address]- 8987 Feb, [facility] [place] [facility] [address] [id number] [place] [address]- 6656 Feb, [facility] [place] [facility] [address] [id number] [place] [address]- 8871 Feb, [facility] [place] [facility] [address] [id number] [place] [address]- 2713 Feb, [facility] [place] [facility] [address] [id number] [place] [address]- 0970 Feb, [facility] [place] [facility] [address] [id number] [place] [address]- 1211 Feb, [facility] [place] [facility] [address] [id number] [place] [address]- 3342 Feb, [facility] [place] [facility] [address] [id number] [place] [address]- 4893 Jan, [facility] [place] [facility] [address] [id number] [place] [address]- 4915 Jan, [facility] [place] [facility] [address] [id number] [place] [address]- 1899 Jan, [facility] [place] [facility] [address] [id number] [place] [address]- 2517 Jan, [facility] [place] [facility] [address] [id number], [place] [address]- 9802 Jan, [facility] [place] [facility] [address] [id number] [place] [address]- 7941 Jan, [facility] [place] [facility] [address] [id number] [place] [address]- 9917 Jan, [facility] [place] [facility] [address] [id number] [place] [address]- 0910 Jan, [facility] [place] [facility] [address] [id number] [place] [address]- 4368 Jan, [facility] [place] [facility] [address] [id number] [place] [address]- 5648 Dec, [facility] [place] [facility] [address] [id number] [place] [address]- 3538 Dec, [facility] [place] [facility] [address] [id number] [place] [address]- 4677 Dec, [facility] [place] [facility] [address] [id number] [place] [address]- 3799 Dec, [facility] [place] [facility] [address] [id number] [place] [address] Dec, [facility] [place] [facility] [address] [id number] [place] [address] Dec, [facility] [place] [facility] [address] [id number] [place] [address] Nov, 2013 [facility] [place] [facility] [address] [id number] [place] [address] Nov, 2013 [facility] [place] [facility] [address] [id number] [place] [address] Nov, 2013 [facility] [place] [facility] [address] [facility] [id number] [place] [address] Nov, 2013 [facility] [place] [facility] [address] [id number] [place] [address] Nov, 2013 [facility] [place] [facility] [address] [id number] [place] [address] Sep, 2013 [facility] [place] [facility] [address] [id number] [place] [address] Nov, 2013 [facility] [place] [facility] [address] [id number] [place] [address] Nov, 2013 [facility] [place] [facility] [address] [id number] [place] [address] Oct, [facility] [place] [facility] [address] [id number] [place] [address] Oct, [facility] [place] [facility] [address] [id number] [place] [address] Oct, [facility] [place] [facility] [address] [id number] [place] [address] Oct, [facility] [place] [facility] [address] [id number] [place] [address] Oct, [facility] [place] [facility] [address] [id number] [place] [address] Oct, [facility] [place] [facility] [address] [id number] [place] [address] Sep, [facility] [place] [facility] [address] [id number] [place] [address] Sep, [facility] [place] [facility] [address] [id number] [place] [address] Sep, [facility] [place] [facility] [address] [id number] [place] [address] Aug, [facility] [place] [facility] [address] [id number] [place] [address] Aug, [facility] [place] [facility] [address] [id number] [place] [address] July, [facility] [place] [facility] [address] [id number] [place] [address] July, [facility] [place] [facility] [address] [id number] [place] [address] Jun, [facility] [place] [facility] [address] [id number] [place] [address] Jun, [facility] [place] [facility] [address] [id number] [place] [address] Jun, [facility] [place] [facility] [address] [id number] [place] [address] Jun, [facility] [place] [facility] [address] [id number] [place] [address] Jun, [facility] [place] [facility] [address] [id number] [place] [address] Jun, [facility] [place] [facility] [address] [id number] [place] [address] Jun, [facility] [place] [facility] [address] [id number] [place] [address] Jun, [facility] [place] [facility] [address] [id number] [place] [address] Jun, [facility] [place] [facility] [address] [id number] [place] [address] Jun, [facility] [place] [facility] [address] [id number] [place] [address] Jun, [facility] [place] [facility] [address] [id number] [place] [address] Jun, [facility] [place] [facility] [address] [id number] [place] [address] May, [facility] [place] [facility] [address] [id number] [place] [address] May, [facility] [place] [facility] [address] [id number] [place] [address] May, [facility] [place] [facility] [address] [id number] [place] [address] May, [facility] [place] [facility] [address] [id number] [place] [address] May, [facility] [place] [facility] [address] [id number] [place] [address] Apr, [facility] [place] [facility] [address] [id number] [place] [address] Apr, [facility] [place] [facility] [address] [id number] [place] [address] 07 Apr, 2013 [facility] [address] [id number] [place] [address] 07 Apr, 2013 [facility] [place] [facility] [address] [id number] [place] [address] 17 Mar, 2013 [facility] [address] [id number] [place] [address] 17 Mar, 2013 [facility] [place] [facility] [address] [id number] [place] [address] Mar, [facility] [address] [id number] [place] [address] Mar, [facility] [address] [id number] [place] [address] Feb, [facility] [address] [id number] [place] [address] Feb, [facility] [address] [id number] [place] [address] Feb, [facility] [address] [id number] [place] [address] Feb, [facility] [address] [id number] [place] [address] Jan, [facility] [place] [facility] [address] [id number] [place] [address] Jan, [facility] [place] [facility] [address] [id number] [place] [address] Jan, [facility] [place] [facility] [address] [id number] [place] [address]- [address] Jan, [facility] [place] [facility] [address] [id number] [place] [address] Dec, [facility] [place] [facility] [address] [id number] [place] [address]14 Nov, [facility] [place] [facility] [address] [id number] [place] [address] Nov, [facility] [place] [facility] [address] [id number] [place] [address] 23 Nov, 2012 [facility] [place] [facility] [address] [id number] [place] [address] 10 Nov, 2012 [facility] [place] [facility] [address] [id number] [place] [address]- [address] 09 Nov, 2012 [facility] [place] [facility] [address] [id number] [place] [address]99 15 Oct, 2012 [facility] [place] [facility] [address] [id number] [place] [address] Oct, [facility] [place] [facility] [address] [id number] [place] [address] Sep, [facility] [place] [facility] [address] [id number] [place] [address] Sep, [facility] [place] [facility] [address] [id number] [place] [address] 7910 Sep, [facility] [place] [facility] [address] [id number] [place] [address] Sep, [facility] [place] [facility] [address] [id number] [place] [address] Sep, [facility] [place] [facility] [address] [id number], [place] [address] Aug, [facility] [place] [facility] [address] [id number] [place] [address] Aug, [facility] [place] [facility] [address] [id number] [place] [address] Aug, [facility] [place] [facility] [address] [id number] [place] [address] Aug, [facility] [place] [facility] [address] [id number] [place] [address] July, [facility] [address] [id number] [place] [address] July, [facility] [address] [id number] [place] [address]842 July, [facility] [address] [id number] [place] [address] Jun, [facility] [address] [id number] [place] [address]14 May, [facility] [address] [id number] [place] [address] May, [facility] [address] [id number] [place] [address]36 Apr, [facility] [address] [id number] [place] [address] Mar, [facility] [address] [id number] [place] [address] 74[address] Mar, [facility] [address] [id number] [place] [address] Mar, [facility] [address] [id number] [place] [address] Mar, [facility] [address] [id number] [place] [address] Feb, [facility] [address] [id number] [place] [address]- 9320 Feb, [facility] [address] [id number] [place] [address]- [address] Feb, [facility] [place] [facility] [address] [id number] [place] [address]- 7926 Feb, [facility] [address] [id number] [place] [address]- [address] 16 Jan, 2012 [facility] [address] [id number] [place] [address] 17[address] Jan, [facility] [place] [facility] [address] [id number] [place] [address] 9196 Sep, [facility] [place] [facility] [address] [id number] [place] [address]- 2546 Sep, [facility] [place] [facility] [address] [id number] [place] [address]- 8266 Aug, [facility] [place] [facility] [address] [id number] [place] [address]- [address]007 Aug, [facility] [place] [facility] [address] [id number] [place] [address]- 1516 Jun, [facility] [place] [facility] [address] [id number] [place] [address]- 4716 May, [facility] [place] [facility] [address] [id number] [place] [address]- [address]498 May, [facility] [place] [facility] [address] [id number] [place] [address]- [address] Mar, [facility] [place] [facility] [address] [id number] [place] [address]- 0366 Mar, [facility] [place] [facility] [address] [id number] [place] [address]- [address]30 Feb, [facility] [place] [facility] [address] [id number] [place] [address]- [address]116 Feb, [facility] [place] [facility] [address] [id number] [place] [address]- [address]40 12 Feb, 2011 [facility] [place] [facility] [address] [id number] [place] [address]- [address]76 14 Dec, 2010 [facility] [place] [facility] [address] [id number] [place] [address]- [address]266 15 Aug, 2010 [facility] [place] [facility] [address] [id number], [place] [address] May, [facility] [address] [facility] [id number] [place] [address] Mar, [facility] [address] [facility] [id number], [place] [address]46 Oct, [facility] [address] [facility] [id number], [place] [address] Sep, [facility] [address] [facility] [id number], [place] [address] Jun, IMMUNIZATIONS No Known Immunizations SOCIAL HISTORY Never Assessed REASON FOR VISIT dr note/ PLAN OF CARE VITAL SIGNS MEDICATIONS Unknown [...]
--- OUTSIDE RECORDS SUMMARY | 2018-02-25 23:39 | XMS REPORT ---
Author Author MELISSA FERNANDEZ Organization [facility] Address [address] [place] [address] Care Team Providers Care Chucking Machine Operator Name Role Phone MELISSA FERNANDEZ Unavailable PROBLEMS Type Condition ICD9-CM Code WWY89-NU Code Onset Dates Condition Status SNOMED Code Problem Recurrent major depressive disorder, in partial remission F33.41 Active 36043458 Problem Cannabis abuse F12.10 Active 03471041 Problem Attention deficit hyperactivity disorder, combined type F90.2 Active 76675406 Problem Type 2 diabetes mellitus with hyperglycemia E11.65 Active 440449796 Problem Uncontrolled type 2 diabetes mellitus without complication, without long-term 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 E11.65 Active 086360112 Problem 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 Active 838599322 Problem Major depression F32.9 Active 739034105 Problem Type 2 diabetes mellitus with diabetic nephropathy E11.21 Active 183065292 Problem Type 2 diabetes mellitus with hyperglycemia E11.65 Active 428376848 Problem Diabetes type 2, uncontrolled E11.65 Active 058043358 Problem Mood disorder F39 Active 86648596 Problem Attention deficit hyperactivity disorder (ADHD), predominantly inattentive type F90.0 Active 22081741 Problem Noncompliance w/medication treatment due to intermit use of medication Z91.14 Active 296860555 Problem terminal 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 [id number] [address] Jun, [facility] [address] [place] [address] 7[address] Mar, Type 2 diabetes mellitus with diabetic nephropathy E11.21 [facility] [address] [place] [address] Mar, Anxiety F41.9 ; Diabetes type 2, uncontrolled E11.65 and Tooth infection K04.7 [facility] [address] [place] [address] 5[address] Mar, Type 2 diabetes mellitus with diabetic nephropathy E11.21 [facility] [address] [place] [address] Feb, [facility] [id number] [place] [address], [place] [address] Jan, Type 2 diabetes mellitus with diabetic nephropathy E11.21 [facility] [address] [place] [address] 365[address] Dec, Type 2 diabetes mellitus with diabetic nephropathy E11.21 [facility] [address] [address] Nov, Mood disorder F39 and Type 2 diabetes mellitus with hyperglycemia E11.65 [facility] [address] [place] [address] 2[address] Oct, Mood disorder F39 and Type 2 diabetes mellitus with hyperglycemia E11.65 [facility] [address] [address] Sep, Type 2 diabetes mellitus with diabetic nephropathy E11.21 and Seizures R56.9 [facility] [address] [place] [address] 84[address] Sep, [facility] [address] [place] [address] 2418 Sep, [facility] [address] [address] 8[address] Sep, [facility] [address] [address] 66[address] July, [facility] [address] [address] 8[address] Jun, [facility] [address] [address] Jun, [facility] [address] [address] 97[address] Jun, Uncontrolled type 2 diabetes mellitus without complication, without long-term 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 E11.65 [facility] [address] [address] 7[address] May, [facility] [id number] [place] [address]- 5[address] May, [address] [address] 6[address] Mar, Generalized anxiety disorder F41.1 ; Major depression F32.9 ; Attention deficit hyperactivity disorder, combined type F90.2 ; Amphetamine and psychostimulant abuse, 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 and Cannabis abuse F12.10 [place] [address] [address] 74[address] Mar, Type 2 diabetes mellitus with diabetic nephropathy E11.21 ; Type 2 diabetes mellitus with hyperglycemia E11.65 and senior living 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.4 [facility] [facility] [address] [address] 115[address] Feb, [facility] [address], [place] [address]- 07[address] Jan, [facility] [address] [address]- 1624 Dec, [facility] [facility] [id number] [place] [address]- 3778 Dec, Generalized anxiety disorder F41.1 ; Attention deficit hyperactivity disorder, combined type F90.2 and Recurrent major depressive disorder, in partial remission F33.41 [place] [facility] [id number] [address] 1218 Dec, Diabetes type 2, uncontrolled E11.65 [facility] [address] [address]- 5387 Dec, [facility] [address] [address] Dec, [facility] [address] [address] Dec, [facility] [address] [address]- 6826 Nov, [facility] [id number] [place] [address]- 3207 Oct, Noncompliance w/medication treatment due to intermit use of medication Z91.14 [facility] [address] [address]- 5[address] Oct, Noncompliance w/medication treatment due to intermit use of medication Z91.14 [facility] [address], [place] [address]- 7605 Oct, [facility] [address] [address]- 6651 Oct, [facility] [address], [place] [address]- 6881 Oct, [facility] [address] [address]- 0358 Sep, Diabetic polyneuropathy associated with type 2 diabetes mellitus E11.42 [facility] [address] [address]- 1453 Sep, [facility] [address] [address] Aug, Diabetes type 2, uncontrolled E11.65 and Diabetic polyneuropathy associated with type 2 diabetes mellitus E11.42 [facility] [address] [place] [address]- 0137 Aug, [facility] [id number] [place] [address] 13808- 1103 Aug, [address] [facility] [id number] [place] [address]- 4811 July, Generalized anxiety disorder F41.1 and Major depression F32.9 [address] [place] [address] [address]- 137[address] July, [place] [facility] [id number] [place] [address]- 7862 Jun, [place] [address] [address]- [address] May, senior living 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.899 ; Diabetes type 2, uncontrolled E11.65 ; Gastroenteritis K52.9 ; Malaise R53.81 and Dysrhythmia I49.9 [place] [id number] [place] [address] 5[address]- 7091 May, [place] [facility] [id number] [place] [address]- 7877 May, [place] [id number] [place] [address] 40435- 9326 Apr, [address] [id number] [place] [address] 518[address]- 3541 Apr, Type 2 diabetes mellitus with hyperglycemia E11.65 [facility] [id number] [place] [address] 56114- 4457 Apr, [place] [id number] [place] [address] 58856- 8224 Apr, 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 [id number] [address] 8[address] Mar, [facility] [address] [facility] [id number] [place] [address]- 3178 Mar, [facility] [address] [facility] [id number] [place] [address]- 0049 Mar, [facility] [address] [facility] [id number] [place] [address] 99361- 6042 Mar, [facility] [address] [facility] [id number] [place] [address]- 6929 Feb, [facility] [address] [facility] [id number] [place] [address] 602[address]- 0332 Feb, [facility] [address] [place] [address]- 1597 Feb, [facility] [address], [place] [address]- 3122 Jan, Diabetes type 2, uncontrolled E11.65 [facility] [address], [place] [address]- 4310 Jan, [facility] [address], [place] [address]- 7405 Jan, [facility] [address], [place] [address]- 6708 Jan, [facility] [address], [place] [address]- 7771 Dec, [facility] [address], [place] [address]- 0634 Dec, [facility] [address] [facility] [id number] [address]- 3630 Dec, [facility] [address] [id number] [address]- 7777 Dec, Type 2 diabetes mellitus with diabetic nephropathy E11.21 [facility] [place] [facility] [id number] [place] [address] 69571- 7833 Dec, [facility] [id number] [place] [address] 43208- 0721 Dec, [facility] [id number] [place] [address] 31811- 5921 Dec, [facility] [id number] [place] [address] 67009- 2662 Dec, Attention deficit hyperactivity disorder, combined type F90.2 ; Generalized anxiety disorder F41.1 and Major depression F32.9 [facility] [id number] [place] [address] 30736- 4689 Dec, Type 2 diabetes mellitus with diabetic nephropathy E11.21 and Type 2 diabetes mellitus with hyperglycemia E11.65 [facility] [id number] [place] [address] 78110- 0308 30 Nov, 2014 [facility] [id number] [place] [address] 54504- 6598 17 Nov, 2014 [facility] [id number] [place] [address] 00867- 1554 16 Nov, 2014 [facility] [id number] [place] [address] 90037- 6721 Oct, [facility] [id number] [place] [address] 02953- 2396 Oct, [facility] [id number] [place] [address] 87540- 0186 Oct, [facility] [id number] [place] [address] 11809- 4977 Sep, Hepatitis C 070.70 and URI, acute 465.9 [facility] [id number] [place] [address] 62615- 0805 Sep, [facility] [id number] [place] [address] 15760- 2546 Sep, [facility] [address] 5300 Sep, [facility] [address], [place] [address]- 9873 Aug, [facility] [address] 3452 Aug, [facility] [id number] [place] [address] 60002- 1177 Aug, [facility] [id number] [place] [address] 280771- 7989 Aug, [facility] [id number] [place] [address] 682964- 4763 Aug, [facility] [address] [place] [address] 105584- 6260 Aug, [facility] [address], [place] [address]- 7081 Aug, Generalized anxiety disorder 300.02 ; Attention deficit disorder of childhood without mention of hyperactivity 314.00 and Major depressive disorder, recurrent episode, severe, specified as with psychotic behavior 296.34 [facility] [address], [place] [address]- 0464 July, Diabetes with renal manifestations, type II or unspecified type, uncontrolled 250.42 [facility] [address], [place] [address]- 7174 July, [facility] [address] 7485 July, [facility] [id number] 1259 July, [facility] [id number] 6415 Jun, [facility] [id number] [address]- 3713 14 Jun, 2014 [facility] [place] [facility] [address] [id number] [place] [address]- 5210 13 Jun, 2014 [facility] [place] [facility] [address] [id number] [place] [address]- 2816 30 May, 2014 [facility] [place] [facility] [address] [id number] [place] [address]- 8816 30 May, 2014 [facility] [place] [facility] [address] [id number] [place] [address]- 7864 30 May, 2014 [facility] [place] [facility] [address] [id number] [place] [address]- 7950 30 May, 2014 [facility] [place] [facility] [address] [id number] [place] [address]- 5181 May, [facility] [place] [facility] [address] [id number] [place] [address]- 9342 May, [facility] [place] [facility] [address] [id number] [place] [address]- 3289 May, [facility] [place] [facility] [address] [id number] [place] [address]- 5213 26 May, 2014 [facility] [place] [facility] [address] [id number] [place] [address]- 3364 18 May, 2014 [facility] [place] [facility] [address] [id number] [place] [address]- 6307 18 May, 2014 [facility] [place] [facility] [address] [id number] [place] [address]- 1417 13 May, 2014 [facility] [place] [facility] [address] [id number] [place] [address]- 7065 13 May, 2014 [facility] [place] [facility] [address] [id number] [place] 9057 May, [facility] [place] [facility] [address] [id number] [place] [address]- 3823 11 May, 2014 [facility] [place] [facility] [address] [id number] [place] [address]- 7162 Apr, 2014 [facility] [place] [facility] [address] [id number] [place] [address]- 6106 Apr, 2014 [facility] [place] [facility] [address] [id number] [place] [address] 2546 Apr, 2014 [facility] [place] [facility] [address] [id number] [place] [address]- 9216 Apr, 2014 [facility] [place] [facility] [address] [id number] [place] [address]- 2548 Apr, 2014 [facility] [place] [facility] [address] [id number] [place] [address]- 8031 Apr, 2014 [facility] [place] [facility] [address] [id number] [place] [address]- 8301 Apr, [facility] [place] [facility] [address] [id number] [place] [address]- 1786 Apr, [facility] [place] [facility] [address] [id number] [place] [address]- 4626 Mar, [facility] [place] [facility] [address] [id number] [place] [address]- 6159 Mar, [facility] [place] [facility] [address] [id number] [place] [address]- 0409 Mar, [facility] [place] [facility] [address] [id number], [place] [address]- 7999 Mar, [facility] [place] [facility] [address] [id number] [place] [address]- 4754 Mar, [facility] [place] [facility] [address] [id number] [place] [address]- 2207 Mar, [facility] [place] [facility] [address] [id number] [place] [address]- 8054 Mar, [facility] [place] [facility] [address] [id number] [place] [address]- 8748 Mar, [facility] [place] [facility] [address] [id number] [place] [address]- 3637 Mar, [facility] [place] [facility] [address] [id number] [place] [address]- 5178 Mar, [facility] [place] [facility] [address] [id number] [place] [address]- 8187 Mar, [facility] [place] [facility] [address] [id number] [place] [address]- 5699 Mar, [facility] [place] [facility] [address] [id number] [place] [address]- 6559 Mar, [facility] [place] [facility] [address] [id number] [place] [address]- 7427 Mar, [facility] [place] [facility] [address] [id number] [place] [address]- 2563 Mar, [facility] [place] [facility] [address] [id number] [place] [address]- 9533 Mar, [facility] [place] [facility] [address] [id number] [place] [address]- 7545 Feb, [facility] [place] [facility] [address] [id number] [place] [address]- 6589 Feb, [facility] [place] [facility] [address] [id number] [place] [address]- 8522 Feb, [facility] [place] [facility] [address] [id number] [place] [address]- 2710 Feb, [facility] [place] [facility] [address] [id number] [place] [address]- 5440 Feb, [facility] [place] [facility] [address] [id number] [place] [address]- 6340 Feb, [facility] [place] [facility] [address] [id number] [place] [address]- 2699 15 Feb, 2014 [facility] [place] [facility] [address] [id number] [place] [address]- 9349 15 Feb, 2014 [facility] [place] [facility] [address] [id number] [place] [address]- 8580 Feb, [facility] [place] [facility] [address] [id number] [place] [address]- 4693 Feb, [facility] [place] [facility] [address] [id number] [place] [address]- 9134 Jan, [facility] [place] [facility] [address] [id number] [place] [address]- 3165 Jan, [facility] [place] [facility] [address] [id number] [place] [address]- 9162 Jan, [facility] [place] [facility] [address] [id number] [place] [address]- 1258 Jan, [facility] [place] [facility] [address] [id number] [place] [address]- 6847 Jan, [facility] [place] [facility] [address] [id number] [place] [address]- 0159 Jan, [facility] [place] [facility] [address] [id number] [place] [address]- 9221 Jan, [facility] [place] [facility] [address] [facility] [id number] [place] [address]- 4443 Jan, [facility] [place] [facility] [address] [id number] [place] [address]- 5160 Jan, [facility] [place] [facility] [address] [id number] [place] [address]- 2953 Dec, [facility] [place] [facility] [address] [id number] [place] [address]- 9296 Dec, [facility] [place] [facility] [address] [id number] [place] [address]- 1969 Dec, [facility] [place] [facility] [address] [id number] [place] [address]- 0123 Dec, [facility] [place] [facility] [address] [id number] [place] [address]- 9117 Dec, [facility] [place] [facility] [address] [id number] [place] [address]- 1946 Dec, [facility] [place] [facility] [address] [id number] [place] [address]- 1937 Nov, [facility] [place] [facility] [address] [id number] [place] [address]- 9424 Nov, 2013 [facility] [place] [facility] [address] [id number] [place] [address]- 4659 Nov, [facility] [place] [facility] [address] [id number] [place] [address]- 9791 Nov, [facility] [place] [facility] [address] [id number] [place] [address]- 4516 Nov, [facility] [place] [facility] [address] [id number] [place] [address]- 2920 Nov, [facility] [place] [facility] [address] [id number] [place] [address]- 9253 Nov, [facility] [place] [facility] [address] [id number] [place] [address]- 5454 Nov, [facility] [place] [facility] [address] [id number] [place] [address]- 3957 Oct, [facility] [place] [facility] [address] [id number], [place] [address]- 1446 Oct, [facility] [place] [facility] [address] [id number] [place] [address]- 0237 Oct, [facility] [place] [facility] [address] [id number] [place] [address]- 7851 Oct, [facility] [place] [facility] [address] [id number] [place] [address]- 8713 Oct, [facility] [place] [facility] [address] [id number] [place] [address]- 0986 Oct, [facility] [place] [facility] [address] [id number] [place] [address]- 9426 Sep, [facility] [place] [facility] [address] [id number] [place] [address]- 4816 Sep, [facility] [place] [facility] [address] [id number] [place] [address]- 0958 Sep, [facility] [place] [facility] [address] [id number] [place] [address]- 5769 Aug, [facility] [place] [facility] [address] [id number] [place] [address]- 9496 Aug, [facility] [place] [facility] [address] [id number] [place] [address]- 0524 July, [facility] [place] [facility] [address] [id number] [place] [address]- 2934 July, [facility] [place] [facility] [address] [id number] [place] [address]- 1319 Jun, [facility] [place] [facility] [address] [id number] [place] [address]- 6715 Jun, [facility] [place] [facility] [address] [id number] [place] [address] Jun, [facility] [place] [facility] [address] [id number] [place] [address] Jun, [facility] [place] [facility] [address] [id number] [place] [address] Jun, [facility] [place] [facility] [address] [id number] [place] [address] Jun, [facility] [place] [facility] [address] [id number] [place] [address] Jun, [facility] [place] [facility] [address] [id number] [place] [address] Jun, [facility] [place] [facility] [address] [id number] [place] [address] Jun, [facility] [place] [facility] [address] [id number] [place] [address] Jun, [facility] [place] [facility] [address] [id number] [place] [address] Jun, [facility] [place] [facility] [address] [id number] [place] [address] Jun, [facility] [place] [facility] [address] [id number] [place] [address] May, [facility] [place] [facility] [address] [id number] [place] [address] May, [facility] [place] [facility] [address] [id number] [place] [address] May, [facility] [place] [facility] [address] [id number] [place] [address] May, [facility] [place] [facility] [address] [id number] [place] [address] May, [facility] [place] [facility] [address] [id number] [place] [address] Apr, [facility] [place] [facility] [address] [id number] [place] [address] Apr, [facility] [place] [facility] [address] [id number] [place] [address] Apr, [facility] [place] [facility] [address] [id number] [place] [address] Apr, [facility] [place] [facility] [address] [id number] [place] [address] Mar, [facility] [place] [facility] [address] [id number] [place] [address] Mar, [facility] [place] [facility] [address] [id number], [place] [address] Mar, [facility] [address] [id number] [place] [address] Mar, [facility] [place] [facility] [address] [id number] [place] [address] Feb, [facility] [place] [facility] [address] [id number] [place] [address] Feb, [facility] [place] [facility] [address] [id number] [place] [address] Feb, [facility] [place] [facility] [address] [id number] [place] [address] Feb, [facility] [place] [facility] [address] [id number] [place] [address] Jan, [facility] [place] [facility] [address] [id number] [place] [address] Jan, [facility] [place] [facility] [address] [id number] [place] [address] Jan, [facility] [place] [facility] [address] [id number] [place] [address] Jan, [facility] [place] [facility] [address] [id number] [place] [address] 08 Dec, 2012 [facility] [place] [facility] [address] [id number], [place] [address] 27 Nov, 2012 [facility] [place] [facility] [address] [id number], [place] [address] 23 Nov, 2012 [facility] [place] [facility] [address] [id number] [place] [address] 23 Nov, 2012 [facility] [place] [facility] [address] [id number] [place] [address] 10 Nov, 2012 [facility] [place] [facility] [address] [id number] [place] [address] 09 Nov, 2012 [facility] [place] [facility] [address] [id number] [place] [address] Oct, [facility] [address] [id number] [place] [address] Oct, [facility] [address] [id number] [place] [address] Sep, [facility] [facility] [address] [id number] [place] [address] Sep, [facility] [address] [id number] [place] [address] Sep, [facility] [address] [id number] [place] [address] Sep, [facility] [address] [id number] [place] [address] Sep, [facility] [address] [id number] [place] [address] Aug, [facility] [address] [id number] [place] [address] Aug, [facility] [address] [id number] [place] [address] Aug, [facility] [address] [id number] [place] [address] Aug, [facility] [address] [id number] [place] [address] July, [facility] [address] [id number] [place] [address] July, [facility] [address] [id number] [place] [address] July, [facility] [address] [id number] [place] [address] Jun, [facility] [address] [id number] [place] [address] May, [facility] [address] [id number] [place] [address] May, [facility] [place] [facility] [address] [id number] [place] [address] Apr, [facility] [place] [facility] [address] [id number] [place] [address] Mar, [facility] [place] [facility] [address] [id number] [place] [address] Mar, [facility] [address] [id number] [place] [address] Mar, [facility] [place] [facility] [address] [id number] [place] [address] Mar, [facility] [place] [facility] [address] [id number] [place] [address] Feb, [facility] [place] [facility] [address] [id number] [place] [address] Feb, [facility] [place] [facility] [address] [id number] [place] [address] Feb, [facility] [place] [facility] [address] [id number] [place] [address] Feb, [facility] [place] [facility] [address] [id number] [place] [address] Jan, [facility] [place] [facility] [address] [id number] [address] Jan, [facility] [place] [facility] [address] [id number] [place] [address] Sep, [facility] [place] [facility] [address] [id number], [place] [address] Sep, [facility] [place] [facility] [address] [id number] [place] [address] Aug, [facility] [place] [facility] [id number] [place] [address] 20 Aug, 2011 [facility] [address] [facility] [id number] [place] [address] Jun, [facility] [address] [facility] [id number] [place] [address] 30 May, 2011 [facility] [address] [facility] [id number] [place] [address] May, [facility] [address] [facility] [id number] [place] [address] Mar, [facility] [address] [facility] [id number] [place] [address] Mar, [facility] [address] [facility] [id number] [place] [address] Feb, [facility] [id number] [place] [address] Feb, [facility] [address] [facility] [id number] [place] [address] Feb, [facility] [id number] [place] [address] 14 Dec, 2010 [facility] [id number] [place] [address] Aug, [facility] [address] [id number] [place] [address] 18 May, 2010 [facility] [address] [facility] [id number], [place] [address] 10 Mar, 2010 [facility] [address] [facility] [id number], [place] [address] 16 Oct, 2009 [facility] [address] [facility] [id number] [place] [address] 14 Sep, 2009 [facility] [address] [id number] [address] 16 Jun, 2009 IMMUNIZATIONS No Known Immunizations [...]
--- OUTSIDE RECORDS SUMMARY | 2018-02-25 23:39 | XMS REPORT ---
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 Active Problem supervisor intermediates 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.4 Active 862179056 Problem Type 2 diabetes mellitus with diabetic nephropathy E11.21 Active 890904176 Problem Type 2 diabetes mellitus with hyperglycemia E11.65 Active 474349100 Problem Uncontrolled type 2 diabetes mellitus without complication, without long-term 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 E11.65 Active 983380925 Problem Diabetes type 2, uncontrolled E11.65 Active 229521088 Problem Noncompliance of patient with dietary regimen Z91.11 Active 881049088 Problem Mood disorder F39 Active 59370380 Problem Attention deficit hyperactivity disorder (ADHD), predominantly inattentive type F90.0 Active 54835648 Problem Major depression, chronic F32.9 Active 917957509 Problem Generalized anxiety disorder F41.1 Active 25571913 Problem Noncompliance w/medication treatment due to intermit use of medication Z91.14 Active 905575351 Problem Recurrent major depressive disorder, in partial remission F33.41 Active 17938088 Problem FDC 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.899 Active 340158283 Problem Attention deficit hyperactivity disorder, combined type F90.2 Active 16051127 ALLERGIES Substance Reaction Event Type Date Status Vicoprofen VIOLATION OF CONTRACT Drug Allergy July, Active Losartan Potassium-HCTZ elevated BP Drug Allergy July, Active Lisinopril-Hydrochlorothiazide cough/headache Drug Allergy July, Active Clonidine HCl throat swelling Drug Allergy July, Active ENCOUNTERS Encounter Location Date Diagnosis [place] [facility] [id number] [place] [address] 81580- 1767 Aug, [place] [id number] [place] [address] 28866- 4516 July, Generalized anxiety disorder F41.1 ; Bipolar II disorder F31.81 ; Attention deficit hyperactivity disorder, combined type F90.2 ; Cannabis abuse F12.10 and Amphetamine and psychostimulant abuse, 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 [place] [facility] [id number] [place] [address] 03525- 2282 Mar, Type 2 diabetes mellitus with diabetic nephropathy E11.21 [place] [id number] [place] [address] 38290- 2895 Mar, Anxiety F41.9 ; Diabetes type 2, uncontrolled E11.65 and Tooth infection K04.7 [place] [id number] [place] [address] 77155- 3061 Mar, Type 2 diabetes mellitus with diabetic nephropathy E11.21 [place] [id number] [place] [address] 28900- 8445 Feb, [place] [id number] [place] [address] 60157- 4951 Jan, Type 2 diabetes mellitus with diabetic nephropathy E11.21 [place] [id number] [place] [address] 71303- 2577 Dec, Type 2 diabetes mellitus with diabetic nephropathy E11.21 [place] [id number] [place] [address] 00849- 4313 Nov, Mood disorder F39 and Type 2 diabetes mellitus with hyperglycemia E11.65 [place] [id number] [place] [address] 76827- 0693 Oct, Mood disorder F39 and Type 2 diabetes mellitus with hyperglycemia E11.65 [place] [id number] [place] [address] 91641- 2501 Sep, Type 2 diabetes mellitus with diabetic nephropathy E11.21 and Seizures R56.9 [facility] [id number] [place] [address] 20479- 4270 Sep, [facility] [id number] [place] [address] 63734- 5577 Sep, [facility] [id number] [place] [address] 52020- 6812 Sep, [facility] [id number] [place] [address] 33323- 2074 July, [facility] [id number] [place] [address] 44945- 4960 Jun, [facility] [id number] [place] [address] 50989- 7952 Jun, [facility] [id number] [place] [address] 21451- 2070 Jun, Uncontrolled type 2 diabetes mellitus without complication, without long-term 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 E11.65 [place] [id number] [place] [address] 16119- 1528 May, [facility] [id number] [place] [address] 16539- 9296 May, [place] [id number] [place] [address] 43732- 4639 Mar, Generalized anxiety disorder F41.1 ; Major depression F32.9 ; Attention deficit hyperactivity disorder, combined type F90.2 ; Amphetamine and psychostimulant abuse, 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 and Cannabis abuse F12.10 [facility] [address] [address] 2219 Mar, Type 2 diabetes mellitus with diabetic nephropathy E11.21 ; Type 2 diabetes mellitus with hyperglycemia E11.65 and FDC 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.4 [place] [id number] [place] [address] 13357- 5406 Feb, [facility] [address] [address]- 6445 Jan, [facility] [address] [address]- 2298 Dec, [facility] [address] [address]- 5789 Dec, Generalized anxiety disorder F41.1 ; Attention deficit hyperactivity disorder, combined type F90.2 and Recurrent major depressive disorder, in partial remission F33.41 [facility] [address] [address]- 0082 Dec, Diabetes type 2, uncontrolled E11.65 [facility] [id number] [address]- 9699 Dec, [facility] [id number] [place] [address] 69941- 5839 Dec, [facility] [address] [address]- 6734 Dec, [facility] [address] [address]- 6074 Nov, [facility] [address] [address]- 2841 Oct, Noncompliance w/medication treatment due to intermit use of medication Z91.14 [facility] [address] [address]- 3004 Oct, Noncompliance w/medication treatment due to intermit use of medication Z91.14 [facility] [address] 2486 Oct, [facility] [address] [address]- 1429 Oct, [facility] [address] [address] 8732 Oct, [facility] [address] [address]- 5141 Sep, Diabetic polyneuropathy associated with type 2 diabetes mellitus E11.42 [facility] [address] [place] [address] 43871- 6246 Sep, [facility] [id number] [place] [address] 37405- 7963 Aug, Diabetes type 2, uncontrolled E11.65 and Diabetic polyneuropathy associated with type 2 diabetes mellitus E11.42 [facility] [address] [place] [address] 00570- 3374 Aug, [facility] [id number] [place] [address] 67349- 3082 Aug, [facility] [id number] [place] [address] 80706- 7848 July, Generalized anxiety disorder F41.1 and Major depression F32.9 [facility] [id number] [place] [address] 11815- 4705 July, [facility] [id number] [place] [address] 70786- 1192 Jun, [facility] [address] [place] [address] 21559- 7713 May, FDC 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.899 ; Diabetes type 2, uncontrolled E11.65 ; Gastroenteritis K52.9 ; Malaise R53.81 and Dysrhythmia I49.9 [facility] [address] [address]- 3939 May, [facility] [id number] [place] [address] 80926- 9775 May, [facility] [address] [place] [address] 51629- 2382 Apr, [facility] [id number] [place] [address] 43063- 7309 15 Apr, 2015 Type 2 diabetes mellitus with hyperglycemia E11.65 [facility] [address] [place] [address] 83664- 1676 Apr, [facility] [id number] [place] [address] 78934- 9962 Apr, FDC 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.899 ; Generalized anxiety disorder F41.1 ; Attention deficit hyperactivity disorder, combined type F90.2 and Major depression F32.9 [facility] [address] [place] [address] 17707- 6925 Mar, [facility] [id number] [place] [address] 24254- 2239 Mar, [facility] [id number] [place] [address] 94475- 5814 Mar, [facility] [id number] [place] [address] 86717- 4839 Mar, [facility] [address] [place] [address] 35159- 1403 Mar, [facility] [id number] [place] [address] 08329- 3152 Feb, [facility] [address] [place] [address] 58704- 5153 Feb, [facility] [address] [place] [address] 43741- 2597 Feb, [facility] [address] [address]- 0409 Jan, Diabetes type 2, uncontrolled E11.65 [facility] [address] [place] [address] 71682- 2212 Jan, [facility] [address] [address]- 8559 Jan, [facility] [id number] [address]- 2492 Jan, [facility] [address] [address]- 4158 30 Dec, 2014 [facility] [address] [address]- 1138 Dec, [facility] [address] [address]- 2894 Dec, [facility] [id number] [place] [address] 32005- 3483 Dec, Type 2 diabetes mellitus with diabetic nephropathy E11.21 [facility] [id number] [place] [address] 06255- 4639 Dec, [facility] [id number] [place] [address] 41298- 9462 Dec, [facility] [id number] [place] [address] 30417- 8229 Dec, [facility] [address] [address]- 6816 Dec, Attention deficit hyperactivity disorder, combined type F90.2 ; Generalized anxiety disorder F41.1 and Major depression F32.9 [facility] [address] [address]- 6152 Dec, Type 2 diabetes mellitus with diabetic nephropathy E11.21 and Type 2 diabetes mellitus with hyperglycemia E11.65 [facility] [address] [address]- 2059 30 Nov, 2014 [facility] [address] [address]- 0132 17 Nov, 2014 [facility] [address] 1506 16 Nov, 2014 [facility] [address] [address]- 9032 Oct, [facility] [id number] 8731 Oct, [facility] [address] 6348 Oct, [facility] [address] 8250 Sep, Hepatitis C 070.70 and URI, acute 465.9 [facility] [id number] [place] [address] 62321- 0031 Sep, [facility] [address] 0037 Sep, [facility] [id number] [place] [address] 801326- 4423 Sep, [facility] [id number] [place] [address] 18161- 2549 Aug, [facility] [id number] [place] [address] 63897- 2838 Aug, [facility] [address] [address]- 4018 Aug, [facility] [address] [address]- 1099 Aug, [facility] [address] [address]- 6605 Aug, [facility] [address] 0414 Aug, [facility] [id number] 5070 Aug, Generalized anxiety disorder 300.02 ; Attention deficit disorder of childhood without mention of hyperactivity 314.00 and Major depressive disorder, recurrent episode, severe, specified as with psychotic behavior 296.34 [facility] [id number] 5694 July, Diabetes with renal manifestations, type II or unspecified type, uncontrolled 250.42 [facility] [place] [facility] [address] [id number] [place] [address]- 7929 July, [facility] [place] [facility] [address] [id number] [place] [address]- 9346 July, [facility] [place] [facility] [address] [id number] [place] [address]- 7832 July, [facility] [place] [facility] [address] [id number] [place] [address]- 9947 Jun, [facility] [place] [facility] [address] [id number] [place] [address]- 3126 Jun, [facility] [place] [facility] [address] [id number] [place] [address]- 0132 Jun, [facility] [place] [facility] [address] [id number] [place] [address]- 6373 May, [facility] [place] [facility] [address] [id number] [place] [address]- 7758 May, [facility] [place] [facility] [address] [id number] [place] [address]- 6924 May, [facility] [place] [facility] [address] [id number] [place] [address]- 4152 May, [facility] [place] [facility] [address] [id number] [place] [address]- 8938 May, [facility] [place] [facility] [address] [id number] [place] [address]- 3128 May, [facility] [place] [facility] [address] [id number] [place] [address]- 4156 May, [facility] [place] [facility] [address] [id number] [place] [address]- 5665 May, [facility] [place] [facility] [address] [id number] [place] [address]- 1898 May, [facility] [place] [facility] [address] [id number] [place] [address]- 6272 18 May, 2014 [facility] [place] [facility] [address] [id number] [place] [address]- 2823 13 May, 2014 [facility] [place] [facility] [address] [id number] [place] [address]- 3723 13 May, 2014 [facility] [place] [facility] [address] [id number] [place] [address]- 6170 11 May, 2014 [facility] [place] [facility] [address] [id number] [place] [address]- 1995 May, [facility] [place] [facility] [address] [id number] [place] [address]- 9009 Apr, [facility] [place] [facility] [address] [id number] [place] [address]- 0140 Apr, 2014 [facility] [place] [facility] [address] [id number] [place] [address]- 1780 Apr, [facility] [place] [facility] [address] [id number] [place] [address]- 2911 Apr, [facility] [place] [facility] [address] [id number] [place] [address]- 2460 Apr, [facility] [place] [facility] [address] [id number] [place] [address]- 8939 Apr, [facility] [place] [facility] [address] [id number] [place] [address]- 7103 Apr, [facility] [place] [facility] [address] [id number] [place] [address]- 5493 Apr, [facility] [place] [facility] [address] [id number] [place] [address]- 5720 Mar, [facility] [place] [facility] [address] [id number] [place] [address]- 4615 Mar, [facility] [place] [facility] [address] [id number] [place] 6870 Mar, [facility] [place] [facility] [address] [id number] [place] [address]- 2756 Mar, [facility] [place] [facility] [address] [id number] [place] [address]- 8662 Mar, [facility] [place] [facility] [address] [id number] [place] [address]- 1406 Mar, [facility] [place] [facility] [address] [id number] [place] [address]- 6303 Mar, [facility] [place] [facility] [address] [id number] [place] [address]- 8925 Mar, [facility] [place] [facility] [address] [id number] [place] [address]- 9326 Mar, [facility] [place] [facility] [address] [id number] [place] [address]- 4346 Mar, [facility] [place] [facility] [address] [id number] [place] [address]- 3434 Mar, [facility] [place] [facility] [address] [id number] [place] [address]- 2961 Mar, [facility] [place] [facility] [address] [id number] [place] [address]- 5275 Mar, [facility] [place] [facility] [address] [id number] [place] [address]- 1360 Mar, [facility] [place] [facility] [address] [id number] [place] [address]- 4461 Mar, [facility] [place] [facility] [address] [id number] [place] [address]- 8679 Mar, [facility] [place] [facility] [address] [id number] [place] [address]- 7109 Feb, [facility] [place] [facility] [address] [id number] [place] [address]- 3665 Feb, [facility] [place] [facility] [address] [id number] [place] [address]- 6809 Feb, [facility] [place] [facility] [address] [id number] [place] [address]- 3209 Feb, [facility] [place] [facility] [address] [id number] [place] [address]- 9156 Feb, [facility] [place] [facility] [address] [id number] [place] [address]- 3430 Feb, [facility] [place] [facility] [address] [id number] [place] [address]- 0315 15 Feb, 2014 [facility] [place] [facility] [address] [id number] [place] [address]- 8487 15 Feb, 2014 [facility] [place] [facility] [address] [id number] [place] [address]- 9822 Feb, [facility] [place] [facility] [address] [id number] [place] [address]- 1087 Feb, [facility] [place] [facility] [address] [id number] [place] [address]- 9011 Jan, [facility] [place] [facility] [address] [id number] [place] [address]- 8053 Jan, [facility] [place] [facility] [address] [id number] [place] [address]- 1993 Jan, [facility] [place] [facility] [address] [id number] [place] [address]- 2376 Jan, [facility] [place] [facility] [address] [id number] [address]- 1092 Jan, [facility] [place] [facility] [address] [id number] [place] [address]- 9665 Jan, [facility] [place] [facility] [address] [id number] [place] [address]- 5125 Jan, [facility] [place] [facility] [address] [id number] [address]- 7246 Jan, [facility] [place] [facility] [address] [id number] [place] [address]- 5919 Jan, [facility] [place] [facility] [address] [id number] [place] [address]- 6078 Dec, [facility] [place] [facility] [address] [id number] [place] [address]- 9431 Dec, [facility] [place] [facility] [address] [id number] [place] [address]- 5220 Dec, [facility] [place] [facility] [address] [id number] [place] [address]- 0109 Dec, [facility] [place] [facility] [address] [id number] [place] [address]- 6382 Dec, [facility] [place] [facility] [address] [id number] [place] [address]- 5144 Dec, [facility] [place] [facility] [address] [id number] [place] [address]- 2423 Nov, 2013 [facility] [place] [facility] [address] [id number] [place] [address]- 8890 Nov, 2013 [facility] [place] [facility] [address] [id number] [place] [address]- 1741 Sep, 2013 [facility] [place] [facility] [address] [id number] [place] [address]- 8602 Sep, 2013 [facility] [place] [facility] [address] [id number] [place] [address]- 0960 Sep, 2013 [facility] [place] [facility] [address] [id number] [place] [address] 2548 Sep, 2013 [facility] [place] [facility] [address] [id number] [place] [address]- 2546 Sep, 2013 [facility] [place] [facility] [address] [id number] [place] [address]- 25[address] Sep, 2013 [facility] [place] [facility] [address] [id number] [place] [address] Oct, [facility] [place] [facility] [address] [id number] [place] [address] Oct, [facility] [place] [facility] [address] [id number] [place] [address] Oct, [facility] [place] [facility] [address] [id number] [place] [address] Oct, [facility] [place] [facility] [address] [id number] [place] [address] Oct, [facility] [place] [facility] [address] [id number] [place] [address] Oct, [facility] [place] [facility] [address] [id number] [place] [address] Sep, [facility] [place] [facility] [address] [id number] [place] [address] Sep, [facility] [place] [facility] [address] [id number] [place] [address] Sep, [facility] [place] [facility] [address] [id number] [place] [address] Aug, [facility] [place] [facility] [address] [id number] [place] [address] Aug, [facility] [place] [facility] [address] [id number] [place] [address] July, [facility] [place] [facility] [address] [id number] [place] [address] July, [facility] [place] [facility] [address] [id number] [place] [address] Jun, [facility] [place] [facility] [address] [id number] [place] [address] Jun, [facility] [place] [facility] [address] [id number] [place] [address] Jun, [facility] [place] [facility] [address] [id number] [place] [address] Jun, [facility] [place] [facility] [address] [id number] [place] [address] Jun, [facility] [place] [facility] [address] [id number] [place] [address] Jun, [facility] [place] [facility] [address] [id number] [place] [address] Jun, [facility] [place] [facility] [address] [id number] [place] [address] Jun, [facility] [place] [facility] [address] [id number] [place] [address] Jun, [facility] [place] [facility] [address] [id number] [place] [address] Jun, [facility] [place] [facility] [address] [id number] [place] [address] Jun, [facility] [place] [facility] [address] [id number] [place] [address] Jun, [facility] [place] [facility] [address] [id number] [place] [address] May, [facility] [place] [facility] [address] [id number] [place] [address] May, [facility] [place] [facility] [address] [id number] [place] [address] May, [facility] [place] [facility] [address] [id number] [place] [address] May, [facility] [place] [facility] [address] [id number] [place] [address] May, [facility] [place] [facility] [address] [id number] [place] [address] Apr, [facility] [place] [facility] [address] [id number] [place] [address] Apr, [facility] [place] [facility] [address] [id number] [place] [address] 07 Apr, 2013 [facility] [place] [facility] [address] [id number] [place] [address] Apr, [facility] [place] [facility] [address] [id number] [place] [address] 17 Mar, 2013 [facility] [place] [facility] [address] [id number] [place] [address] Mar, [facility] [place] [facility] [address] [id number] [place] [address] Mar, [facility] [place] [facility] [address] [id number] [place] [address] Mar, [facility] [place] [facility] [address] [id number] [place] [address] Feb, [facility] [place] [facility] [address] [id number] [place] [address] Feb, [facility] [place] [facility] [address] [id number] [place] [address] Feb, [facility] [place] [facility] [address] [id number] [place] [address] Feb, [facility] [place] [facility] [address] [id number] [place] [address] Jan, [facility] [place] [facility] [address] [id number] [place] [address] Jan, [facility] [place] [facility] [address] [id number] [place] [address] Jan, [facility] [place] [facility] [address] [id number] [place] [address] Jan, [facility] [place] [facility] [address] [id number] [place] [address] 08 Dec, 2012 [facility] [place] [facility] [address] [id number] [place] [address] 27 Nov, 2012 [facility] [address] [id number] [place] [address] 23 Nov, 2012 [facility] [place] [facility] [address] [id number] [place] [address] 23 Nov, 2012 [facility] [place] [facility] [address] [id number] [place] [address] 10 Nov, 2012 [facility] [place] [facility] [address] [id number] [place] [address] 09 Nov, 2012 [facility] [address] [id number] [place] [address] 15 Oct, 2012 [facility] [place] [facility] [address] [id number] [place] [address] Oct, [facility] [address] [id number] [place] [address] Sep, [facility] [place] [facility] [address] [id number] [place] [address] Sep, [facility] [place] [facility] [address] [id number] [place] [address] Sep, [facility] [place] [facility] [address] [id number] [place] [address] Sep, [facility] [place] [facility] [address] [id number] [place] [address] Sep, [facility] [place] [facility] [address] [id number] [place] [address] Aug, [facility] [place] [facility] [address] [id number] [place] [address] Aug, [facility] [place] [facility] [address] [id number] [place] [address] Aug, [facility] [place] [facility] [address] [id number] [place] [address] Aug, [facility] [place] [facility] [address] [id number] [place] [address] July, [facility] [address] [id number] [place] [address] July, [facility] [address] [id number] [place] [address] July, [facility] [address] [id number] [place] [address] Jun, [facility] [address] [id number] [place] [address] May, [facility] [address] [id number] [place] [address] May, [facility] [address] [id number] [place] [address] Apr, [facility] [address] [id number] [place] [address] Mar, [facility] [address] [id number] [place] [address] Mar, [facility] [address] [id number] [place] [address] Mar, [facility] [address] [id number] [place] [address] Mar, [facility] [address] [id number] [place] [address] Feb, [facility] [place] [facility] [address] [id number] [place] [address] Feb, [facility] [place] [facility] [address] [id number] [place] [address] Feb, [facility] [place] [facility] [address] [id number] [place] [address] Feb, [facility] [place] [facility] [address] [id number] [place] [address] Jan, [facility] [place] [facility] [address] [id number] [place] [address] 2546 Jan, [facility] [place] [facility] [address] [id number] [place] [address] Sep, [facility] [place] [facility] [address] [id number] [place] [address] Sep, [facility] [place] [facility] [address] [id number] [place] [address] Aug, [facility] [place] [facility] [address] [id number] [place] [address] 2546 Aug, [facility] [place] [facility] [address] [id number] [place] [address] 2546 Jun, [facility] [place] [facility] [address] [id number] [place] [address] May, [facility] [place] [facility] [address] [id number] [place] [address] May, [facility] [place] [facility] [address] [id number] [place] [address] 47[address] Mar, [facility] [place] [facility] [address] [id number] [place] [address] 47[address] Mar, [facility] [place] [facility] [address] [id number] [place] [address] Feb, [facility] [place] [facility] [address] [id number] [place] [address] 2546 Feb, [facility] [place] [facility] [address] [id number] [place] [address] 2546 Feb, [facility] [place] [facility] [address] [id number] [place] [address] 2546 14 Dec, 2010 [facility] [place] [facility] [address] [id number] [place] [address] Aug, [facility] [place] [facility] [address] [facility] [id number] [place] [address] May, [facility] [address] [facility] [id number] [place] [address] Mar, [facility] [address] [facility] [id number] [place] [address] Oct, [facility] [address] [facility] [id number] [place] [address] Sep, [facility] [address] [facility] [id number] [place] [address] Jun, IMMUNIZATIONS No Known Immunizations SOCIAL HISTORY Never Assessed REASON FOR VISIT intake Josie PLAN OF CARE Activity Details Follow Up 4 Weeks Reason: f/u VITAL SIGNS Height 77 in 2017-07-20 Weight 246.8 lbs 2017-07-20 Heart Rate 82 bpm 2017-07-20 Respiratory Rate 20 2017-07-20 BMI 29.26 kg/m2 2017-07-20 Blood pressure systolic 144 mmHg 2017-07-20 Blood pressure diastolic 80 mmHg 2017-07-20 MEDICATIONS Medication Instructions Dosage Frequency Start Date End Date Duration Status Atorvastatin Calcium 10 MG TAKE ONE TABLET BY MOUTH ONCE DAILY 30 Active Triamcinolone Acetonide 0.1 % Externally Twice a day 1 application to affected area 12h 30 Aug, 2015 Active Escitalopram Oxalate 20 MG TAKE ONE TABLET BY MOUTH ONCE DAILY 30 Active Amlodipine Besylate 10 MG TAKE ONE TABLET BY MOUTH ONCE DAILY 30 Active Aspirin 325 mg take 1 tablet (325 mg) by oral route once daily Jun, Active OneTouch Delica Lancets 33G 33 TEST TWO TIMES A DAY 50 Active Metformin HCl 1000 MG TAKE ONE TABLET 12h 30 Active Gabapentin 300 MG Orally twice a day 1 capsule 12h July, 30 day( s) Active Keppra 1000 MG Orally 2 times a day 1 tablet 12h 30 Active Zofran 8 MG Orally 3 times a day 1 tablet 8h 10 Active Potassium Chloride Nessa ER 10 MEQ TAKE ONE TABLET BY MOUTH ONCE DAILY 30 Active Lantus SoloStar 100 UNIT/ML Subcutaneous twice a day 42 units 12h 21 Oct, 2016 Active Benicar HCT 40-25 MG TAKE ONE TABLET BY MOUTH ONCE DAILY 30 Active Lexapro 20 mg Orally Once a day 1 tablet 24h Active OneTouch Ultra Test - TEST TWO TIMES A DAY 25 Active Levetiracetam 250 MG TAKE ONE TABLET BY MOUTH TWICE DAILY 30 Active Keppra 250 MG Orally Twice a day 1 tablet 12h Sep, 30 day(s) Active RESULTS No Results PROCEDURES Procedure Date Ordered Result Body Site [facility] VISIT ESTABLISHED PATIENT July 20, 2017 INSTRUCTIONS MEDICATIONS ADMINISTERED No Known Medications MEDICAL [...]
[2018-02-25] MEDS ORDERED: NS (IVPB) 100 ML ONE (23:40)
--- OUTSIDE RECORDS SUMMARY | 2018-02-25 23:40 | XMS REPORT ---
Author Author MELISSA FERNANDEZ [facility] Address [address] [place] [address] Care Team Providers Care Cruise Guide Name Role Phone MELISSA FERNANDEZ Unavailable PROBLEMS Type Condition ICD9-CM Code [id number] Code Onset Dates Condition Status SNOMED Code Problem Recurrent major depressive disorder, in partial remission F33.41 Active 65953467 Problem Cannabis abuse F12.10 Active 08224894 Problem Attention deficit hyperactivity disorder, combined type F90.2 Active 46293404 Problem Type 2 diabetes mellitus with hyperglycemia E11.65 Active 490482535 Problem Uncontrolled type 2 diabetes mellitus without complication, without long-term 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 E11.65 Active 041095236 Problem terminal clerk 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.4 Active 177833877 Problem Major depression F32.9 Active 271417267 Problem Type 2 diabetes mellitus with diabetic nephropathy E11.21 Active 341527747 Problem Type 2 diabetes mellitus with hyperglycemia E11.65 Active 860587723 Problem Diabetes type 2, uncontrolled E11.65 Active 469866129 Problem Mood disorder F39 Active 79637458 Problem Attention deficit hyperactivity disorder (ADHD), predominantly inattentive type F90.0 Active 48736457 Problem Noncompliance w/medication treatment due to intermit use of medication Z91.14 Active 766895089 Problem terminal clerk 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.899 Active 641910034 Problem Anxiety F41.9 Active 67744374 Problem Generalized anxiety disorder F41.1 Active 02373939 Problem Noncompliance of patient with dietary regimen Z91.11 Active 446532332 Problem Major depression, chronic F32.9 Active 363968263 ALLERGIES No Information SOCIAL HISTORY Never Assessed PLAN OF CARE VITAL SIGNS MEDICATIONS Medication Instructions Dosage Frequency Start Date End Date Duration Status Levemir FlexTouch 100 UNIT/ML Subcutaneous Once a day inject 60 units 24h daily Active RESULTS No Results PROCEDURES No Known procedures IMMUNIZATIONS No Known Immunizations MEDICAL (GENERAL) HISTORY Type Description Date Medical [...]
--- OUTSIDE RECORDS SUMMARY | 2018-02-25 23:40 | XMS REPORT ---
Author Author JONATAN Hernandez [facility] Address Unknown Care Team Providers Care Surgeon/President Name Role Phone [email or web address] WREN Unavailable PROBLEMS Type Condition ICD9-CM Code [id number] Code Onset Dates Condition Status SNOMED Code Problem Recurrent major depressive disorder, in partial remission F33.41 Active 68545196 Problem Cannabis abuse F12.10 Active 09416835 Problem Attention deficit hyperactivity disorder, combined type F90.2 Active 00705429 Problem Type 2 diabetes mellitus with hyperglycemia E11.65 Active 461099003 Problem Uncontrolled type 2 diabetes mellitus without complication, without long-term 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 E11.65 Active 890124902 Problem 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.4 Active 028264224 Problem Major depression F32.9 Active 270873194 Problem Type 2 diabetes mellitus with diabetic nephropathy E11.21 Active 676971345 Problem Type 2 diabetes mellitus with hyperglycemia E11.65 Active 995559434 Problem Diabetes type 2, uncontrolled E11.65 Active 282910806 Problem Mood disorder F39 Active 97902962 Problem Attention deficit hyperactivity disorder (ADHD), predominantly inattentive type F90.0 Active 77503613 Problem Noncompliance w/medication treatment due to intermit use of medication Z91.14 Active 535001062 Problem 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 Active 482416531 Problem Anxiety F41.9 Active 92892334 Problem Generalized anxiety disorder F41.1 Active 19744890 Problem Noncompliance of patient with dietary regimen Z91.11 Active 473518602 Problem Major depression, chronic F32.9 Active 821325738 ALLERGIES No Information SOCIAL HISTORY Never Assessed PLAN OF CARE VITAL SIGNS MEDICATIONS Unknown [...]
--- OUTSIDE RECORDS SUMMARY | 2018-02-25 23:40 | XMS REPORT ---
Author Author ANNE Stephens Organization [facility] Address Unknown Care Team Providers Care Cobbler Apprentice Name Role Phone ANNE Stephens Unavailable PROBLEMS Type Condition ICD9-CM Code HYP69-UN Code Onset Dates Condition Status SNOMED Code Problem Recurrent major depressive disorder, in partial remission F33.41 Active 35463237 Problem Cannabis abuse F12.10 Active 54652998 Problem Attention deficit hyperactivity disorder, combined type F90.2 Active 85554366 Problem Type 2 diabetes mellitus with hyperglycemia E11.65 Active 120416514 Problem Uncontrolled type 2 diabetes mellitus without complication, without long-term 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 E11.65 Active 347015253 Problem 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 mechanic 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.4 Active 837952403 Problem Major depression F32.9 Active 629369834 Problem Type 2 diabetes mellitus with diabetic nephropathy E11.21 Active 736741007 Problem Type 2 diabetes mellitus with hyperglycemia E11.65 Active 216334046 Problem Diabetes type 2, uncontrolled E11.65 Active 894818697 Problem Mood disorder F39 Active 51770515 Problem Attention deficit hyperactivity disorder (ADHD), predominantly inattentive type F90.0 Active 65125423 Problem Noncompliance w/medication treatment due to intermit use of medication Z91.14 Active 061484516 Problem scagliola mechanic 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.899 Active 500607401 Problem Anxiety F41.9 Active 01325625 Problem Generalized anxiety disorder F41.1 Active 95580039 Problem Noncompliance of patient with dietary regimen Z91.11 Active 829946802 Problem Major depression, chronic F32.9 Active 636836372 ALLERGIES Substance Reaction Event Type Date Status Vicoprofen VIOLATION OF CONTRACT Drug Allergy Mar, Active SOCIAL HISTORY No smoking Hx information available PLAN OF CARE Activity Details Follow Up prn Reason: VITAL SIGNS Height 77 in 2016-04-12 Weight 259.2 lbs 2016-04-12 Heart Rate 100 bpm 2016-04-12 Respiratory Rate 20 2016-04-12 BMI 30.73 kg/m2 2016-04-12 Blood pressure systolic 142 mmHg 2016-04-12 Blood pressure diastolic 74 mmHg 2016-04-12 MEDICATIONS Medication Instructions Dosage Frequency Start Date End Date Duration Status OneTouch Delica Lancets 33G 33 USE LANCETS TO TEST TWO TIMES A DAY 50 Active Levemir FlexTouch 100 UNIT/ML INJECT 60 UNITS SUBCUTANEOUSLY DAILY (MUST HAVE DIABETIC APPOINTMENT FOR REFILLS) 25 Active Metformin HCl 1000 MG TAKE ONE TABLET 12h 30 Active OneTouch Ultra Test - USE ONE STRIP TO TEST TWICE A DAY 25 Active OneTouch Ultra Test USE ONE STRIP TO TEST TWICE A DAY. DX E11.65 Active Victoza 18 MG/3ML INJECT 1.8 MG SUBCUTANEOUSLY DAILY 30 Active Potassium Chloride Nessa ER 10 MEQ TAKE ONE TABLET BY MOUTH ONCE DAILY 30 Active Keppra 750 MG 1 tablet 12h Mar, 30 Active Aspirin 325 mg take 1 tablet (325 mg) by oral route once daily Jun, Active Triamcinolone Acetonide 0.1 % Externally Twice a day 1 application to affected area 12h Aug, Active Lexapro 20 MG TAKE ONE TABLET BY MOUTH ONCE DAILY. 30 Active Insulin Syringe 31G X 5/16 as directed Feb, Active Amlodipine Besylate 10 MG TAKE ONE TABLET BY MOUTH DAILY 30 Active Zofran 8 MG Orally 3 times a day 1 tablet 8h 10 Active Benicar HCT 40-25 MG Orally Once a day 1 tablet 24h 30 Active Atorvastatin Calcium 10 MG TAKE ONE TABLET BY MOUTH ONCE DAILY 30 Active RESULTS No Results PROCEDURES Procedure Date Ordered Related Diagnosis Body Site [facility] VISIT ESTABLISHED PATIENT Apr 12, 2016 Office Visit, Est Pt., Level 3 Apr 12, 2016 IMMUNIZATIONS No Known Immunizations
--- OUTSIDE RECORDS SUMMARY | 2018-02-25 23:40 | XMS REPORT ---
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 Active Problem halfway 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.4 Active 339532966 Problem Type 2 diabetes mellitus with diabetic nephropathy E11.21 Active 775280782 Problem Type 2 diabetes mellitus with hyperglycemia E11.65 Active 326919947 Problem Uncontrolled type 2 diabetes mellitus without complication, without long-term 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 E11.65 Active 955346002 Problem Diabetes type 2, uncontrolled E11.65 Active 518847589 Problem Noncompliance of patient with dietary regimen Z91.11 Active 661033268 Problem Mood disorder F39 Active 30223445 Problem Attention deficit hyperactivity disorder (ADHD), predominantly inattentive type F90.0 Active 48623083 Problem Major depression, chronic F32.9 Active 008986707 Problem Generalized anxiety disorder F41.1 Active 21398519 Problem Noncompliance w/medication treatment due to intermit use of medication Z91.14 Active 074035238 Problem Recurrent major depressive disorder, in partial remission F33.41 Active 20491463 Problem 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 Active 007250512 Problem Attention deficit hyperactivity disorder, combined type F90.2 Active 17561158 ALLERGIES No Information ENCOUNTERS Encounter Location Date Diagnosis [facility] [address] [facility] [id number] [address] July, Generalized anxiety disorder F41.1 ; Bipolar II disorder F31.81 ; Attention deficit hyperactivity disorder, combined type F90.2 ; Cannabis abuse F12.10 and Amphetamine and psychostimulant abuse, 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 [facility] [id number] [place] [address] 13812- 2755 Mar, Type 2 diabetes mellitus with diabetic nephropathy E11.21 [facility] [id number] [place] [address] 90689- 5106 Mar, Anxiety F41.9 ; Diabetes type 2, uncontrolled E11.65 and Tooth infection K04.7 [facility] [id number] [place] [address] 98359- 7202 Mar, Type 2 diabetes mellitus with diabetic nephropathy E11.21 [facility] [id number] [place] [address] 85066- 7165 Feb, [facility] [id number] [place] [address] 57571- 4555 Jan, Type 2 diabetes mellitus with diabetic nephropathy E11.21 [facility] [id number] [place] [address] 06232- 8696 Dec, Type 2 diabetes mellitus with diabetic nephropathy E11.21 [facility] [id number] [place] [address] 08649- 8509 Nov, Mood disorder F39 and Type 2 diabetes mellitus with hyperglycemia E11.65 [facility] [id number] [place] [address] 24935- 7515 Oct, Mood disorder F39 and Type 2 diabetes mellitus with hyperglycemia E11.65 [facility] [id number] [place] [address] 06909- 0505 Sep, Type 2 diabetes mellitus with diabetic nephropathy E11.21 and Seizures R56.9 [facility] [id number] [place] [address] 77596- 0717 Sep, [facility] [id number] [place] [address] 64452- 7600 Sep, [facility] [address] [place] [address] 4202 Sep, [facility] [address] [address] 1191 July, [facility] [address] [address]- 7336 Jun, [facility] [id number] [place] [address] 62661- 1270 Jun, [facility] [id number] [place] [address] 36884- 7001 Jun, Uncontrolled type 2 diabetes mellitus without complication, without long-term 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 E11.65 [facility] [id number] [place] [address] 99378- 8248 May, [facility] [id number] [place] [address] 83842- 1806 May, [facility] [id number] [place] [address] 98777- 6563 Mar, Generalized anxiety disorder F41.1 ; Major depression F32.9 ; Attention deficit hyperactivity disorder, combined type F90.2 ; Amphetamine and psychostimulant abuse, 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 and Cannabis abuse F12.10 [facility] [address] [address] 3889 Mar, Type 2 diabetes mellitus with diabetic nephropathy E11.21 ; Type 2 diabetes mellitus with hyperglycemia E11.65 and halfway 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.4 [facility] [address] [address] 8487 Feb, [facility] [address] [address]- 7582 Jan, [facility] [address] [address]- 7019 Dec, [facility] [address] [address]- 1589 Dec, Generalized anxiety disorder F41.1 ; Attention deficit hyperactivity disorder, combined type F90.2 and Recurrent major depressive disorder, in partial remission F33.41 [facility] [id number] [place] [address] 53910- 2069 Dec, Diabetes type 2, uncontrolled E11.65 [facility] [address] [address]- 2156 Dec, [facility] [id number] [place] [address] 313179- 6940 Dec, [facility] [id number] [place] [address] 51532- 1798 Dec, [facility] [id number] [place] [address] 44478- 8582 Nov, [facility] [id number] [place] [address] 45437- 6511 Oct, Noncompliance w/medication treatment due to intermit use of medication Z91.14 [facility] [id number] [place] [address] 47377- 8358 Oct, Noncompliance w/medication treatment due to intermit use of medication Z91.14 [facility] [address] [address]- 0813 Oct, [facility] [address] [place] [address] 27591- 1538 Oct, [facility] [address] [address]- 4418 Oct, [facility] [id number] [place] [address] 42428- 4839 Sep, Diabetic polyneuropathy associated with type 2 diabetes mellitus E11.42 [facility] [address] [address]- 3874 Sep, [facility] [id number] [place] [address] 89280- 2415 Aug, Diabetes type 2, uncontrolled E11.65 and Diabetic polyneuropathy associated with type 2 diabetes mellitus E11.42 [facility] [address] [address]- 5996 Aug, [facility] [id number] [place] [address] 54717- 6325 Aug, [facility] [id number] [place] [address] 84282- 7533 July, Generalized anxiety disorder F41.1 and Major depression F32.9 [facility] [id number] [place] [address] 66615- 1522 July, [facility] [id number] [place] [address] 43507- 1467 Jun, [facility] [id number] [place] [address] 79197- 8183 May, halfway 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.899 ; Diabetes type 2, uncontrolled E11.65 ; Gastroenteritis K52.9 ; Malaise R53.81 and Dysrhythmia I49.9 [facility] [address] [place] [address] 32535- 1890 May, [facility] [address] [place] [address] 79363- 8291 May, [facility] [address] [place] [address] 53651- 5027 Apr, [facility] [address] [place] [address] 49017- 3865 Apr, Type 2 diabetes mellitus with hyperglycemia E11.65 [facility] [id number] [place] [address] 56008- 3221 Apr, [facility] [address] [address]- 0727 Apr, halfway 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.899 ; Generalized anxiety disorder F41.1 ; Attention deficit hyperactivity disorder, combined type F90.2 and Major depression F32.9 [facility] [address] [address]- 8622 Mar, [facility] [address] [address]- 8517 Mar, [facility] [id number] [place] [address] 76922- 1852 Mar, [facility] [id number] [place] [address] 76884- 9815 Mar, [facility] [id number] [place] [address] 78609- 7211 Mar, [facility] [id number] [place] [address] 16447- 5227 Feb, [facility] [id number] [place] [address] 43709- 8021 Feb, [facility] [address] [address]- 0843 Feb, [facility] [id number] [place] [address] 69406- 7842 Jan, Diabetes type 2, uncontrolled E11.65 [facility] [address] [address]- 9964 Jan, [facility] [address] [address]- 2813 Jan, [facility] [address] [address]- 7055 Jan, [facility] [address] 5175 Dec, [facility] [address] 1030 Dec, [facility] [address] [address]- 2025 Dec, [facility] [address] [address]- 4217 Dec, Type 2 diabetes mellitus with diabetic nephropathy E11.21 [facility] [id number] [place] [address] 801302- 0899 Dec, [facility] [id number] [place] [address] 99083- 6417 Dec, [facility] [id number] [place] [address] 13987- 4836 Dec, [facility] [id number] [place] [address] 93572- 1689 Dec, Attention deficit hyperactivity disorder, combined type F90.2 ; Generalized anxiety disorder F41.1 and Major depression F32.9 [facility] [id number] [place] [address] 41736- 2605 Dec, Type 2 diabetes mellitus with diabetic nephropathy E11.21 and Type 2 diabetes mellitus with hyperglycemia E11.65 [facility] [id number] [place] [address] 25461- 3106 Nov, [facility] [id number] [place] [address] 78179- 3372 17 Nov, 2014 [facility] [id number] [place] [address] 86402- 7682 Nov, [facility] [id number] [place] [address] 40972- 3819 Oct, [facility] [id number] [place] [address] 05051- 9872 Oct, [facility] [id number] [place] [address] 760968- 7767 Oct, [facility] [id number] [place] [address] 27872- 7086 Sep, Hepatitis C 070.70 and URI, acute 465.9 [facility] [address] [address]- 5046 Sep, [facility] [address] [address]- 0493 Sep, [facility] [address] [address]- 0791 Sep, [facility] [address] [address]- 0105 Aug, [facility] [address] [address]- 0389 Aug, [facility] [address] [place] [address] 62962- 9235 Aug, [facility] [address] [address]- 9270 Aug, [facility] [address] [place] [address] 20655- 2985 Aug, [facility] [address] [address]- 4084 Aug, [facility] [address] [address]- 4347 Aug, Generalized anxiety disorder 300.02 ; Attention deficit disorder of childhood without mention of hyperactivity 314.00 and Major depressive disorder, recurrent episode, severe, specified as with psychotic behavior 296.34 [facility] [address] [address]- 3269 July, Diabetes with renal manifestations, type II or unspecified type, uncontrolled 250.42 [facility] [address] [address]- 5387 July, [facility] [address] [address]- 9809 July, [facility] [address] [address]- 0329 July, [facility] [address] [facility] [place] [place] [id number] [place] [address]- 1218 30 Jun, 2014 [facility] [place] [facility] [address] [id number] [place] [address]- 3706 14 Jun, 2014 [facility] [place] [facility] [address] [id number] [place] [address]- 3546 13 Jun, 2014 [facility] [place] [facility] [address] [id number] [place] [address]- 2806 30 May, 2014 [facility] [place] [facility] [address] [id number] [place] [address]- 0998 30 May, 2014 [facility] [place] [facility] [address] [id number] [place] [address]- 8879 30 May, 2014 [facility] [place] [facility] [address] [id number] [place] [address]- 2335 30 May, 2014 [facility] [place] [facility] [address] [id number] [place] [address]- 7653 28 May, 2014 [facility] [place] [facility] [address] [id number] [place] [address]- 1197 28 May, 2014 [facility] [place] [facility] [address] [id number] [place] [address]- 3640 26 May, 2014 [facility] [place] [facility] [address] [id number] [place] [address]- 3119 26 May, 2014 [facility] [place] [facility] [address] [id number] [place] [address]- 6341 18 May, 2014 [facility] [place] [facility] [address] [id number] [place] [address]- 4248 18 May, 2014 [facility] [place] [facility] [address] [id number] [place] [address]- 8566 13 May, 2014 [facility] [place] [facility] [address] [id number] [place] [address]- 2546 13 May, 2014 [facility] [place] [facility] [address] [id number] [place] [address]- 8523 May, [facility] [place] [facility] [address] [id number] [place] [address]- 3045 May, [facility] [place] [facility] [address] [id number] [place] [address]- 5006 Apr, [facility] [place] [facility] [address] [id number] [place] [address]- 4108 Apr, [facility] [place] [facility] [address] [id number] [place] [address]- 8248 Apr, [facility] [place] [facility] [address] [id number] [place] [address]- 3306 Apr, [facility] [place] [facility] [address] [id number] [place] [address]- 8805 Apr, [facility] [place] [facility] [address] [id number] [place] [address]- 2500 Apr, [facility] [place] [facility] [address] [id number] [place] [address]- 0273 Apr, [facility] [place] [facility] [address] [id number] [place] [address]- 2606 Apr, [facility] [place] [facility] [address] [id number] [place] [address]- 9469 Mar, [facility] [place] [facility] [address] [id number] [place] [address]- 9818 Mar, [facility] [place] [facility] [address] [id number] [place] [address]- 2605 Mar, [facility] [place] [facility] [address] [id number] [place] [address]- 7474 Mar, [facility] [place] [facility] [address] [id number] [place] [address]- 9754 Mar, [facility] [place] [facility] [address] [id number] [place] [address]- 7901 Mar, [facility] [place] [facility] [address] [id number] [place] [address]- 0102 Mar, [facility] [address] [id number] [place] [address]- 3394 Mar, [facility] [place] [facility] [address] [id number] [place] [address]- 0306 Mar, [facility] [address] [id number] [place] [address]- 6893 Mar, [facility] [place] [facility] [address] [id number] [place] [address]- 0345 Mar, [facility] [address] [id number] [place] [address]- 6256 Mar, [facility] [place] [facility] [address] [id number] [place] [address]- 2700 Mar, [facility] [address] [id number] [place] [address]- 5108 Mar, [facility] [address] [id number] [place] [address]- 6210 Mar, [facility] [address] [id number] [place] [address]- 4720 Mar, [facility] [address] [id number] [place] [address]- 2926 Feb, [facility] [place] [facility] [address] [id number] [place] [address]- 2445 Feb, [facility] [place] [facility] [address] [id number] [place] [address]- 2250 Feb, [facility] [place] [facility] [address] [id number] [place] [address]- 8309 Feb, [facility] [place] [facility] [address] [id number] [place] [address]- 7116 Feb, [facility] [place] [facility] [address] [id number] [place] [address]- 6300 Feb, [facility] [place] [facility] [address] [id number] [place] [address]- 2900 Feb, [facility] [place] [facility] [address] [id number] [place] [address]- 7093 Feb, [facility] [place] [facility] [address] [id number] [place] [address]- 7576 Feb, [facility] [place] [facility] [address] [id number] [place] [address]- 9933 Feb, [facility] [place] [facility] [address] [id number] [place] [address]- 7200 Jan, [facility] [place] [facility] [address] [id number] [place] [address]- 9045 Jan, [facility] [place] [facility] [address] [id number] [place] [address]- 9602 Jan, [facility] [place] [facility] [address] [id number] [place] [address]- 7027 Jan, [facility] [place] [facility] [address] [id number] [place] [address]- 9190 Jan, [facility] [place] [facility] [address] [id number] [address]- 3155 Jan, [facility] [place] [facility] [address] [id number] [address]- 4377 Jan, [facility] [place] [facility] [address] [id number] [address]- 1674 Jan, [facility] [place] [facility] [address] [id number] [place] [address]- 3984 Jan, [facility] [place] [facility] [address] [id number] [address]- 7989 Dec, [facility] [place] [facility] [address] [id number] [place] [address]- 8892 Dec, [facility] [place] [facility] [address] [id number] [place] [address]- 4248 Dec, [facility] [place] [facility] [address] [id number] [place] [address]- 4432 Dec, [facility] [place] [facility] [address] [id number] [place] [address]- 0140 Dec, [facility] [place] [facility] [address] [id number] [place] [address]- 2077 Dec, [facility] [place] [facility] [address] [id number] [place] [address]- 4390 Nov, 2013 [facility] [place] [facility] [address] [id number] [place] [address]- 8077 Nov, 2013 [facility] [place] [facility] [address] [id number] [place] [address]- 2981 Nov, 2013 [facility] [place] [facility] [address] [id number] [place] [address]- 2192 09 Nov, 2013 [facility] [place] [facility] [address] [id number] [place] [address]- 6653 08 Nov, 2013 [facility] [place] [facility] [address] [id number] [place] [address]- 2927 08 Nov, 2013 [facility] [place] [facility] [address] [id number] [place] [address]- 4562 08 Nov, 2013 [facility] [place] [facility] [address] [id number] [place] [address]- 3527 08 Nov, 2013 [facility] [place] [facility] [address] [id number] [place] [address]- 9744 Oct, [facility] [place] [facility] [address] [id number] [place] [address]- 3854 Oct, [facility] [place] [facility] [address] [id number] [place] [address]- 2181 Oct, [facility] [place] [facility] [address] [id number] [place] [address]- 4124 Oct, [facility] [place] [facility] [address] [id number] [place] [address]- 8418 Oct, [facility] [place] [facility] [address] [id number] [place] [address]- 9789 Oct, [facility] [place] [facility] [address] [id number] [place] [address] Sep, [facility] [place] [facility] [address] [id number] [place] [address] Sep, [facility] [place] [facility] [address] [id number] [place] [address] Sep, [facility] [place] [facility] [address] [id number] [place] [address] Aug, [facility] [place] [facility] [address] [id number] [place] [address] Aug, [facility] [place] [facility] [address] [id number] [place] [address] July, [facility] [place] [facility] [address] [id number] [place] [address] July, [facility] [place] [facility] [address] [id number] [place] [address] Jun, [facility] [place] [facility] [address] [id number] [place] [address] Jun, [facility] [place] [facility] [address] [id number] [place] [address] Jun, [facility] [place] [facility] [address] [id number] [place] [address] Jun, [facility] [place] [facility] [address] [id number] [place] [address] Jun, [facility] [place] [facility] [address] [id number] [place] [address] Jun, [facility] [place] [facility] [address] [id number] [place] [address] Jun, [facility] [place] [facility] [address] [id number] [place] [address] Jun, [facility] [place] [facility] [address] [id number] [place] [address] Jun, [facility] [place] [facility] [address] [id number] [place] [address] Jun, [facility] [place] [facility] [address] [id number] [place] [address] Jun, [facility] [place] [facility] [address] [id number] [place] [address] Jun, [facility] [place] [facility] [address] [id number] [place] [address] May, [facility] [place] [facility] [address] [id number] [place] [address] May, [facility] [place] [facility] [address] [id number] [place] [address] May, [facility] [place] [facility] [address] [id number] [place] [address] May, [facility] [place] [facility] [address] [id number] [place] [address] May, [facility] [place] [facility] [address] [id number] [place] [address] Apr, [facility] [place] [facility] [address] [id number] [place] [address] Apr, [facility] [place] [facility] [address] [id number] [place] [address] Apr, [facility] [place] [facility] [address] [id number] [place] [address] Apr, [facility] [place] [facility] [address] [id number] [place] [address] Mar, [facility] [place] [facility] [address] [id number] [place] [address] 17 Mar, [facility] [address] [id number] [place] [address] Mar, [facility] [address] [id number] [place] [address] Mar, [facility] [address] [id number] [place] [address] Feb, [facility] [address] [id number] [place] [address] Feb, [facility] [address] [id number] [place] [address] Feb, [facility] [address] [id number] [place] [address] Feb, [facility] [address] [id number] [place] [address] Jan, [facility] [address] [id number] [place] [address] Jan, [facility] [address] [id number] [place] [address] Jan, [facility] [address] [id number] [place] [address] Jan, [facility] [place] [facility] [address] [id number] [place] [address] 08 Dec, 2012 [facility] [address] [id number] [place] [address] 27 Nov, 2012 [facility] [place] [facility] [address] [id number] [place] [address] Nov, [facility] [place] [facility] [address] [id number] [place] [address] Nov, [facility] [place] [facility] [address] [id number] [place] [address] Nov, [facility] [address] [id number] [place] [address] Nov, [facility] [place] [facility] [address] [id number] [place] [address] Oct, [facility] [place] [facility] [address] [id number] [place] [address] Oct, [facility] [place] [facility] [address] [id number] [place] [address] Sep, [facility] [address] [id number] [place] [address] Sep, [facility] [place] [facility] [address] [id number] [place] [address] Sep, [facility] [place] [facility] [address] [id number] [place] [address] Sep, [facility] [place] [facility] [address] [id number] [place] [address] Sep, [facility] [place] [facility] [address] [id number] [place] [address] Aug, [facility] [place] [facility] [address] [id number] [place] [address] Aug, [facility] [place] [facility] [address] [id number] [place] [address] Aug, [facility] [place] [facility] [address] [id number] [place] [address] Aug, [facility] [place] [facility] [address] [id number] [place] [address] July, [facility] [place] [facility] [address] [id number] [place] [address] July, [facility] [place] [facility] [address] [id number] [place] [address] July, [facility] [place] [facility] [address] [id number] [place] [address] Jun, [facility] [address] [id number] [place] [address] May, [facility] [place] [facility] [address] [id number] [place] [address] May, [facility] [place] [facility] [address] [id number] [place] [address] Apr, [facility] [place] [facility] [address] [id number] [place] [address] Mar, [facility] [place] [facility] [address] [id number] [place] [address] Mar, [facility] [place] [facility] [address] [id number] [place] [address]45 Mar, [facility] [address] [id number] [place] [address] 39[address] Mar, [facility] [place] [facility] [address] [id number] [place] [address] Feb, [facility] [place] [facility] [address] [id number] [place] [address] Feb, [facility] [place] [facility] [address] [id number] [place] [address] Feb, [facility] [place] [facility] [address] [id number] [place] [address] Feb, [facility] [place] [facility] [address] [id number] [place] [address] Jan, [facility] [place] [facility] [address] [id number] [place] [address] Jan, [facility] [place] [facility] [address] [id number] [place] [address] Sep, [facility] [place] [facility] [address] [id number] [place] [address] Sep, [facility] [place] [facility] [address] [id number] [place] [address] Aug, [facility] [place] [facility] [address] [id number] [place] [address] Aug, [facility] [place] [facility] [address] [id number] [place] [address] Jun, [facility] [place] [facility] [address] [id number] [place] [address] May, [facility] [place] [facility] [address] [id number] [place] [address] May, [facility] [place] [facility] [address] [id number] [place] [address] 269[address] Mar, [facility] [place] [facility] [address] [id number] [place] [address] Mar, [facility] [place] [facility] [address] [id number] [place] [address] Feb, [facility] [place] [facility] [address] [id number] [place] [address] Feb, [facility] [place] [facility] [address] [id number] [place] [address] Feb, [facility] [place] [facility] [address] [id number] [place] [address] 14 Dec, 2010 [facility] [place] [facility] [address] [id number] [place] [address] 15 Aug, 2010 [facility] [place] [facility] [address] [id number] [place] [address] 18 May, 2010 [facility] [place] [facility] [address] [id number] [place] [address] 10 Mar, 2010 [facility] [place] [facility] [address] [id number] [place] [address] 16 Oct, 2009 [facility] [place] [facility] [address] [id number] [place] [address] Sep, [facility] [address] [facility] [id number] [place] [id number] Jun, IMMUNIZATIONS No Known Immunizations SOCIAL HISTORY Never Assessed REASON FOR VISIT Refill request/unable to contact PLAN OF CARE VITAL SIGNS MEDICATIONS No Known Medications RESULTS No Results PROCEDURES No Known [...]
--- OUTSIDE RECORDS SUMMARY | 2018-02-25 23:41 | XMS REPORT ---
Author Author MELISSA FERNANDEZ [facility] Address [address] [place] [address] Care Team Providers Care Crime Victim Specialist Name Role Phone MELISSA FERNANDEZ Unavailable PROBLEMS Type Condition ICD9-CM Code [id number] Code Onset Dates Condition Status SNOMED Code Problem Major depression, chronic F32.9 Active 632336560 Problem Generalized anxiety disorder F41.1 Active 41235433 Problem Attention deficit hyperactivity disorder, combined type F90.2 Active 64244048 Problem Uncontrolled type 2 diabetes mellitus without complication, without long-term 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 E11.65 Active 494002722 Problem Type 2 diabetes mellitus with diabetic nephropathy E11.21 Active 990119971 Problem Major depression F32.9 Active 416840442 Problem Cannabis abuse F12.10 Active 22879706 Problem Type 2 diabetes mellitus with hyperglycemia E11.65 Active 281411447 Problem group home 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.4 Active 126141437 Problem Noncompliance w/medication treatment due to intermit use of medication Z91.14 Active 141948680 Problem Noncompliance of patient with dietary regimen Z91.11 Active 279731083 Problem Anxiety F41.9 Active 39097165 Problem Diabetes type 2, uncontrolled E11.65 Active 015400588 Problem Attention deficit hyperactivity disorder (ADHD), predominantly inattentive type F90.0 Active 58177753 Problem group home 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.899 Active 460090923 Problem Mood disorder F39 Active 70989748 Problem Recurrent major depressive disorder, in partial remission F33.41 Active 47056202 ALLERGIES No Known Allergies SOCIAL HISTORY No smoking Hx information available PLAN OF CARE VITAL SIGNS MEDICATIONS Medication Instructions Dosage Frequency Start Date End Date Duration Status Insulin Syringe 31G X 5/16" 1 ML as directed Feb, Active Lantus 100 UNIT/ML Subcutaneous Once a day 60 units 24h Active RESULTS No Results PROCEDURES No Known procedures IMMUNIZATIONS No Known Immunizations
--- OUTSIDE RECORDS SUMMARY | 2018-02-25 23:41 | XMS REPORT ---
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 Name Role Phone MELISSA FERNANDEZ Unavailable PROBLEMS Type Condition ICD9-CM Code FUX09-UH Code Onset Dates Condition Status SNOMED Code Problem Recurrent major depressive disorder, in partial remission F33.41 Active 31765956 Problem Cannabis abuse F12.10 Active 13608389 Problem Attention deficit hyperactivity disorder, combined type F90.2 Active 23932335 Problem Type 2 diabetes mellitus with hyperglycemia E11.65 Active 592319038 Problem Uncontrolled type 2 diabetes mellitus without complication, without long-term 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 E11.65 Active 285428767 Problem emt intermediate 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.4 Active 086134614 Problem Major depression F32.9 Active 768377692 Problem Type 2 diabetes mellitus with diabetic nephropathy E11.21 Active 692107903 Problem Type 2 diabetes mellitus with hyperglycemia E11.65 Active 695321006 Problem Diabetes type 2, uncontrolled E11.65 Active 283123789 Problem Mood disorder F39 Active 07527688 Problem Attention deficit hyperactivity disorder (ADHD), predominantly inattentive type F90.0 Active 72010046 Problem Noncompliance w/medication treatment due to intermit use of medication Z91.14 Active 565193218 Problem emt intermediate 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.899 Active 697180437 Problem Anxiety F41.9 Active 03992339 Problem Generalized anxiety disorder F41.1 Active 47056099 Problem Noncompliance of patient with dietary regimen Z91.11 Active 942007255 Problem Major depression, chronic F32.9 Active 988761762 ALLERGIES No Information ENCOUNTERS Encounter Location Date Diagnosis [facility] [id number] [address] Jun, [facility] [id number], [place] [address] Jun, [facility] [address] [place] [address] Mar, Type 2 diabetes mellitus with diabetic nephropathy E11.21 [facility] [address] [place] [address] Mar, Anxiety F41.9 ; Diabetes type 2, uncontrolled E11.65 and Tooth infection K04.7 [facility] [address] [place] [address] 4366 Mar, Type 2 diabetes mellitus with diabetic nephropathy E11.21 [facility] [address] [place] [address] 1949 Feb, [facility] [id number] [place] [address], [place] [address]- [address] Jan, Type 2 diabetes mellitus with diabetic nephropathy E11.21 [facility] [address] [place] [address]- 1618 Dec, Type 2 diabetes mellitus with diabetic nephropathy E11.21 [facility] [address] [address] Nov, Mood disorder F39 and Type 2 diabetes mellitus with hyperglycemia E11.65 [facility] [address] [place] [address]- 45[address] Oct, Mood disorder F39 and Type 2 diabetes mellitus with hyperglycemia E11.65 [facility] [address] [address]- 09[address] Sep, Type 2 diabetes mellitus with diabetic nephropathy E11.21 and Seizures R56.9 [facility] [address] [place] [address]- 290[address] Sep, [facility] [address] [place] [address]- 0766 Sep, [facility] [address], [place] [address]- 6226 Sep, [facility] [address], [place] [address] 5735 July, [facility] [address], [place] [address]- 5268 Jun, [facility] [address] [address]- 1006 Jun, [facility] [address], [place] [address] 1968 Jun, Uncontrolled type 2 diabetes mellitus without complication, without long-term 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 E11.65 [facility] [address], [place] [address] 95[address] May, [facility] [id number] [place] [address]- 2699 May, [address], [place] [address] 1944 Mar, Generalized anxiety disorder F41.1 ; Major depression F32.9 ; Attention deficit hyperactivity disorder, combined type F90.2 ; Amphetamine and psychostimulant abuse, 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 and Cannabis abuse F12.10 [address] [place] [address], [place] [address] 1856 Mar, Type 2 diabetes mellitus with diabetic nephropathy E11.21 ; Type 2 diabetes mellitus with hyperglycemia E11.65 and long-term 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.4 [place] [address], [place] [address]- 1274 Feb, [facility] [address], [place] [address]- 5[address] Jan, [facility] [address], [place] [address]- 8199 Dec, [place] [place] [id number] [place] [address]- 0288 Dec, Generalized anxiety disorder F41.1 ; Attention deficit hyperactivity disorder, combined type F90.2 and Recurrent major depressive disorder, in partial remission F33.41 [address] [id number], [place] [address]- 5613 Dec, Diabetes type 2, uncontrolled E11.65 [facility] [address], [place] [address]- 4[address] Dec, [facility] [address] [address] Dec, [facility] [address] [address] Dec, [facility] [address], [place] [address]- 8731 Nov, [facility] [id number] [place] [address]- 4306 Oct, Noncompliance w/medication treatment due to intermit use of medication Z91.14 [facility] [address], [place] [address]- [address] Oct, Noncompliance w/medication treatment due to intermit use of medication Z91.14 [facility] [address], [place] [address]- 9904 Oct, [facility] [address], [place] [address]- 1901 Oct, [facility] [address], [place] [address]- 9031 Oct, [facility] [address], [place] [address]- 3941 Sep, Diabetic polyneuropathy associated with type 2 diabetes mellitus E11.42 [facility] [address], [place] [address] Sep, [facility] [address] [address] Aug, Diabetes type 2, uncontrolled E11.65 and Diabetic polyneuropathy associated with type 2 diabetes mellitus E11.42 [facility] [address] [place] [address]- 1545 Aug, [facility] [id number] [place] [address] 34[address]- 9416 Aug, [address] [place] [id number] [place] [address]- 9120 July, Generalized anxiety disorder F41.1 and Major depression F32.9 [address] [place] [address] [address]- [address] July, [address] [id number] [place] [address]- 2886 Jun, [address] [address]- [address] May, long-term 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.899 ; Diabetes type 2, uncontrolled E11.65 ; Gastroenteritis K52.9 ; Malaise R53.81 and Dysrhythmia I49.9 [address] [place] [id number] [place] [address]- 7738 May, [address] [place] [id number] [place] [address]- 1485 May, [address] [id number] [place] [address] 21414- 6707 Apr, [address] [id number] [place] [address] 87191- 8913 Apr, Type 2 diabetes mellitus with hyperglycemia E11.65 [address] [id number] [place] [address] 05[address]- 0848 Apr, [place] [id number] [place] [address] 68695- 7763 Apr, emt intermediate 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.899 ; Generalized anxiety disorder F41.1 ; Attention deficit hyperactivity disorder, combined type F90.2 and Major depression F32.9 [place] [id number] [place] [address] 97[address]- 8064 Mar, [facility] [address] [facility] [id number] [address]- [address] Mar, [facility] [address] [facility] [id number] [place] [address]- 9903 Mar, [facility] [address] [facility] [id number] [place] [address]- 7072 Mar, [facility] [address] [facility] [id number] [place] [address] 39871- 0962 Mar, [facility] [address] [facility] [id number] [place] [address]- 7861 Feb, [facility] [address] [facility] [id number] [place] [address] 99471- 0573 Feb, [facility] [address] [place] [address]- 7877 Feb, [facility] [address], [place] [address]- 1784 Jan, Diabetes type 2, uncontrolled E11.65 [facility] [address], [place] [address]- 5374 Jan, [facility] [address], [place] [address]- 0600 Jan, [facility] [address], [place] [address]- 8094 Jan, [facility] [address], [place] [address]- 0948 Dec, [facility] [address], [place] [address]- 0458 Dec, [facility] [address] [facility] [id number], [place] [address]- 8243 Dec, [facility] [id number], [place] [address]- 2554 Dec, Type 2 diabetes mellitus with diabetic nephropathy E11.21 [facility] [place] [facility] [address] [place] [address] 68282- 8990 Dec, [facility] [id number] [place] [address] 95343- 6554 Dec, [facility] [id number] [place] [address] 20395- 2641 Dec, [facility] [id number] [place] [address] 30895- 9359 Dec, Attention deficit hyperactivity disorder, combined type F90.2 ; Generalized anxiety disorder F41.1 and Major depression F32.9 [facility] [id number] [place] [address] 65595- 8983 Dec, Type 2 diabetes mellitus with diabetic nephropathy E11.21 and Type 2 diabetes mellitus with hyperglycemia E11.65 [facility] [id number] [place] [address] 78872- 4787 30 Nov, 2014 [facility] [id number] [place] [address] 14691- 9081 17 Nov, 2014 [facility] [id number] [place] [address] 88177- 2921 16 Nov, 2014 [facility] [id number] [place] [address] 12112- 6358 Oct, [facility] [id number] [place] [address] 86774- 5055 Oct, [facility] [id number] [place] [address] 18128- 1650 Oct, [facility] [id number] [place] [address] 29717- 1681 Sep, Hepatitis C 070.70 and URI, acute 465.9 [facility] [id number] [place] [address] 16548- 1128 Sep, [facility] [id number] [place] [address] 09069- 2546 Sep, [facility] [address] 0841 Sep, [facility] [address], [place] [address]- 2124 Aug, [facility] [address] 2135 Aug, [facility] [id number] [place] [address] 52671- 3723 Aug, [facility] [address] [place] [address] 011294- 8894 Aug, [facility] [address] [place] [address] 814619- 4066 Aug, [facility] [address] [place] [address] 594542- 5232 Aug, [facility] [address], [place] [address]- 6863 Aug, Generalized anxiety disorder 300.02 ; Attention deficit disorder of childhood without mention of hyperactivity 314.00 and Major depressive disorder, recurrent episode, severe, specified as with psychotic behavior 296.34 [facility] [address], [place] [address]- 9687 July, Diabetes with renal manifestations, type II or unspecified type, uncontrolled 250.42 [facility] [address], [place] [address]- 9878 July, [facility] [address] 1481 July, [facility] [id number] 2983 July, [facility] [id number] 2607 Jun, [facility] [id number], [place] [address]- 9959 14 Jun, 2014 [facility] [place] [facility] [address] [id number] [place] [address]- 6453 13 Jun, 2014 [facility] [place] [facility] [address] [id number] [place] [address]- 8816 30 May, 2014 [facility] [place] [facility] [address] [id number] [place] [address]- 3086 30 May, 2014 [facility] [place] [facility] [address] [id number] [place] [address]- 9955 30 May, 2014 [facility] [place] [facility] [address] [id number] [place] [address]- 8982 30 May, 2014 [facility] [place] [facility] [address] [id number] [place] [address]- 1204 May, [facility] [place] [facility] [address] [id number] [place] [address]- 5176 May, [facility] [place] [facility] [address] [id number] [place] [address]- 2049 May, [facility] [place] [facility] [address] [id number] [place] [address]- 8291 26 May, 2014 [facility] [place] [facility] [address] [id number] [place] [address]- 3779 18 May, 2014 [facility] [place] [facility] [address] [id number] [place] [address]- 5881 18 May, 2014 [facility] [place] [facility] [address] [id number] [place] [address]- 5547 13 May, 2014 [facility] [place] [facility] [address] [id number] [place] [address]- 9872 13 May, 2014 [facility] [place] [facility] [address] [id number] [place] 7196 May, [facility] [place] [facility] [address] [id number] [place] [address]- 3533 11 May, 2014 [facility] [place] [facility] [address] [id number] [place] [address]- 7694 Apr, 2014 [facility] [place] [facility] [address] [id number] [place] [address]- 6856 Apr, 2014 [facility] [place] [facility] [address] [id number] [place] [address] 2546 Apr, 2014 [facility] [place] [facility] [address] [id number] [place] [address]- 8616 Apr, 2014 [facility] [place] [facility] [address] [id number] [place] [address]- 2542 Apr, 2014 [facility] [place] [facility] [address] [id number] [place] [address]- 0801 Apr, 2014 [facility] [place] [facility] [address] [id number] [place] [address]- 0410 Apr, [facility] [place] [facility] [address] [id number] [place] [address]- 8968 Apr, [facility] [place] [facility] [address] [id number] [place] [address]- 7096 Mar, [facility] [place] [facility] [address] [id number] [place] [address]- 4132 Mar, [facility] [place] [facility] [address] [id number] [place] [address]- 8210 Mar, [facility] [place] [facility] [address] [id number], [place] [address]- 8271 Mar, [facility] [place] [facility] [address] [id number] [place] [address]- 5346 Mar, [facility] [place] [facility] [address] [id number] [place] [address]- 0021 Mar, [facility] [place] [facility] [address] [id number] [place] [address]- 3322 Mar, [facility] [place] [facility] [address] [id number] [place] [address]- 3017 Mar, [facility] [place] [facility] [address] [id number] [place] [address]- 8375 Mar, [facility] [place] [facility] [address] [id number] [place] [address]- 5811 Mar, [facility] [place] [facility] [address] [id number] [place] [address]- 7229 Mar, [facility] [place] [facility] [address] [id number] [place] [address]- 5967 Mar, [facility] [place] [facility] [address] [id number] [place] [address]- 5352 Mar, [facility] [place] [facility] [address] [id number] [place] [address]- 7359 Mar, [facility] [place] [facility] [address] [id number] [place] [address]- 0203 Mar, [facility] [place] [facility] [address] [id number] [place] [address]- 3299 Mar, [facility] [place] [facility] [address] [id number] [place] [address]- 6939 Feb, [facility] [place] [facility] [address] [id number] [place] [address]- 3105 Feb, [facility] [place] [facility] [address] [id number] [place] [address]- 0287 Feb, [facility] [place] [facility] [address] [id number] [place] [address]- 6119 Feb, [facility] [place] [facility] [address] [id number] [place] [address]- 9330 Feb, [facility] [place] [facility] [address] [id number] [place] [address]- 1513 Feb, [facility] [place] [facility] [address] [id number] [place] [address]- 2102 15 Feb, 2014 [facility] [place] [facility] [address] [id number] [place] [address]- 3804 15 Feb, 2014 [facility] [place] [facility] [address] [id number] [place] [address]- 8785 Feb, [facility] [place] [facility] [address] [id number] [place] [address]- 1578 Feb, [facility] [place] [facility] [address] [id number] [place] [address]- 8262 Jan, [facility] [place] [facility] [address] [id number] [place] [address]- 2036 Jan, [facility] [place] [facility] [address] [id number] [place] [address]- 2758 Jan, [facility] [place] [facility] [address] [id number] [place] [address]- 3988 Jan, [facility] [place] [facility] [address] [id number] [place] [address]- 3827 Jan, [facility] [place] [facility] [address] [id number] [place] [address]- 5659 Jan, [facility] [place] [facility] [address] [id number] [place] [address]- 4185 Jan, [facility] [place] [facility] [address] [facility] [id number] [place] [address]- 2221 Jan, [facility] [place] [facility] [address] [id number] [place] [address]- 6880 Jan, [facility] [place] [facility] [address] [id number] [place] [address]- 9804 Dec, [facility] [place] [facility] [address] [id number] [place] [address]- 7297 Dec, [facility] [place] [facility] [address] [id number] [place] [address]- 1638 Dec, [facility] [place] [facility] [address] [id number] [place] [address]- 4372 Dec, [facility] [place] [facility] [address] [id number] [place] [address]- 4144 Dec, [facility] [place] [facility] [address] [id number] [place] [address]- 7634 Dec, [facility] [place] [facility] [address] [id number] [place] [address]- 4004 Nov, [facility] [place] [facility] [address] [id number] [place] [address]- 4358 Nov, 2013 [facility] [place] [facility] [address] [id number] [place] [address]- 0261 Nov, [facility] [place] [facility] [address] [id number] [place] [address]- 5318 Nov, [facility] [place] [facility] [address] [id number] [place] [address]- 9209 Nov, [facility] [place] [facility] [address] [id number] [place] [address]- 9352 Nov, [facility] [place] [facility] [address] [id number] [place] [address]- 4708 Nov, [facility] [place] [facility] [address] [id number] [place] [address]- 9678 Nov, [facility] [place] [facility] [address] [id number] [place] [address]- 0300 Oct, [facility] [place] [facility] [address] [id number], [place] [address]- 5196 Oct, [facility] [place] [facility] [address] [id number] [place] [address]- 9545 Oct, [facility] [place] [facility] [address] [id number] [place] [address]- 0650 Oct, [facility] [place] [facility] [address] [id number] [place] [address]- 2466 Oct, [facility] [place] [facility] [address] [id number] [place] [address]- 8388 Oct, [facility] [place] [facility] [address] [id number] [place] [address]- 1891 Sep, [facility] [place] [facility] [address] [id number] [place] [address]- 3064 Sep, [facility] [place] [facility] [address] [id number] [place] [address]- 6148 Sep, [facility] [place] [facility] [address] [id number] [place] [address]- 9751 Aug, [facility] [place] [facility] [address] [id number] [place] [address]- 6050 Aug, [facility] [place] [facility] [address] [id number] [place] [address] July, [facility] [place] [facility] [address] [id number] [place] [address] July, [facility] [place] [facility] [address] [id number] [place] [address] Jun, [facility] [place] [facility] [address] [id number] [place] [address] Jun, [facility] [place] [facility] [address] [id number] [place] [address] Jun, [facility] [place] [facility] [address] [id number] [place] [address] Jun, [facility] [place] [facility] [address] [id number] [place] [address] Jun, [facility] [place] [facility] [address] [id number] [place] [address] Jun, [facility] [place] [facility] [address] [id number] [place] [address] Jun, [facility] [place] [facility] [address] [id number] [place] [address] Jun, [facility] [place] [facility] [address] [id number] [place] [address] Jun, [facility] [place] [facility] [address] [id number] [place] [address] Jun, [facility] [place] [facility] [address] [id number] [place] [address] Jun, [facility] [place] [facility] [address] [id number] [place] [address] Jun, [facility] [place] [facility] [address] [id number] [place] [address] May, [facility] [place] [facility] [address] [id number] [place] [address] May, [facility] [place] [facility] [address] [id number] [place] [address] May, [facility] [place] [facility] [address] [id number] [place] [address] May, [facility] [place] [facility] [address] [id number] [place] [address] May, [facility] [place] [facility] [address] [id number] [place] [address] Apr, [facility] [place] [facility] [address] [id number] [place] [address]- [address] Apr, [facility] [place] [facility] [address] [id number] [place] [address] Apr, [facility] [place] [facility] [address] [id number] [place] [address] Apr, [facility] [place] [facility] [address] [id number] [place] [address] Mar, [facility] [place] [facility] [address] [id number] [place] [address] Mar, [facility] [place] [facility] [address] [id number], [place] [address] Mar, [facility] [address] [id number] [place] [address] Mar, [facility] [place] [facility] [address] [id number] [place] [address] Feb, [facility] [place] [facility] [address] [id number] [place] [address] Feb, [facility] [place] [facility] [address] [id number] [place] [address] Feb, [facility] [place] [facility] [address] [id number] [place] [address] Feb, [facility] [place] [facility] [address] [id number] [place] [address] Jan, [facility] [place] [facility] [address] [id number] [place] [address] Jan, [facility] [place] [facility] [address] [id number] [place] [address] Jan, [facility] [place] [facility] [address] [id number] [place] [address] Jan, [facility] [place] [facility] [address] [id number] [place] [address] 08 Dec, 2012 [facility] [place] [facility] [address] [id number], [place] [address] 27 Nov, 2012 [facility] [place] [facility] [address] [id number], [place] [address] 23 Nov, 2012 [facility] [place] [facility] [address] [address] [id number] [place] [address] 23 Nov, 2012 [facility] [place] [facility] [address] [id number] [place] [address] 10 Nov, 2012 [facility] [place] [facility] [address] [id number] [place] [address] 09 Nov, 2012 [facility] [place] [facility] [address] [id number] [place] [address] Oct, [facility] [address] [id number] [place] [address] Oct, [facility] [address] [id number] [place] [address] Sep, [facility] [address] [id number] [place] [address] Sep, [facility] [address] [id number] [place] [address] Sep, [facility] [address] [id number] [place] [address] Sep, [facility] [address] [id number] [place] [address] Sep, [facility] [address] [id number] [place] [address] Aug, [facility] [address] [id number] [place] [address] Aug, [facility] [address] [id number] [place] [address] Aug, [facility] [address] [id number] [place] [address] Aug, [facility] [address] [id number] [place] [address] July, [facility] [address] [id number] [place] [address] July, [facility] [address] [id number] [place] [address] July, [facility] [address] [id number] [place] [address] Jun, [facility] [address] [id number] [place] [address] May, [facility] [address] [id number] [place] [address] May, [facility] [place] [facility] [address] [id number] [place] [address] Apr, [facility] [place] [facility] [address] [id number] [place] [address] Mar, [facility] [place] [facility] [address] [id number] [place] [address] Mar, [facility] [address] [id number] [place] [address] Mar, [facility] [place] [facility] [address] [id number] [place] [address] Mar, [facility] [place] [facility] [address] [id number] [place] [address] Feb, [facility] [place] [facility] [address] [id number] [place] [address] Feb, [facility] [place] [facility] [address] [id number] [place] [address] Feb, [facility] [place] [facility] [address] [id number] [place] [address] Feb, [facility] [place] [facility] [address] [id number] [place] [address] Jan, [facility] [place] [facility] [address] [id number], [place] [address] Jan, [facility] [place] [facility] [address] [id number] [place] [address] Sep, [facility] [place] [facility] [address] [id number], [place] [address] Sep, [facility] [place] [facility] [address] [id number] [place] [address] Aug, [facility] [place] [facility] [id number] [place] [address] 20 Aug, 2011 [facility] [address] [facility] [id number] [place] [address] Jun, [facility] [address] [facility] [id number] [place] [address] 30 May, 2011 [facility] [address] [facility] [id number] [place] [address] May, [facility] [address] [facility] [id number] [place] [address] Mar, [facility] [address] [facility] [id number] [place] [address] Mar, [facility] [address] [facility] [id number] [place] [address] Feb, [facility] [id number] [place] [address] Feb, [facility] [address] [facility] [id number] [place] [address] Feb, [facility] [id number] [place] [address] 14 Dec, 2010 [facility] [id number] [place] [address] Aug, [facility] [address] [id number] [place] [address] 18 May, 2010 [facility] [address] [facility] [id number], [place] [address] 10 Mar, 2010 [facility] [address] [facility] [id number], [place] [address] 16 Oct, 2009 [facility] [address] [facility] [id number] [place] [address] 14 Sep, 2009 [facility] [address] [id number], [place] [address] 16 Jun, 2009 IMMUNIZATIONS No Known Immunizations SOCIAL HISTORY Never Assessed REASON FOR VISIT Tesha REYNA required PLAN OF CARE VITAL SIGNS MEDICATIONS Unknown [...]
--- OUTSIDE RECORDS SUMMARY | 2018-02-25 23:41 | XMS REPORT ---
Author Author MELISSA FERNANDEZ [facility] Address [address] [place] [address] Care Team Providers Care Developer [employer] Name Role Phone MELISSA FERNANDEZ Unavailable PROBLEMS Type Condition ICD9-CM Code [id number] Code Onset Dates Condition Status SNOMED Code Problem Recurrent major depressive disorder, in partial remission F33.41 Active 74248127 Problem Cannabis abuse F12.10 Active 46181446 Problem Attention deficit hyperactivity disorder, combined type F90.2 Active 42405211 Problem Type 2 diabetes mellitus with hyperglycemia E11.65 Active 898705898 Problem Uncontrolled type 2 diabetes mellitus without complication, without long-term 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 E11.65 Active 999918533 Problem long term care pharmacist 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.4 Active 325680955 Problem Major depression F32.9 Active 238579258 Problem Type 2 diabetes mellitus with diabetic nephropathy E11.21 Active 613257302 Problem Type 2 diabetes mellitus with hyperglycemia E11.65 Active 316662682 Problem Diabetes type 2, uncontrolled E11.65 Active 491091165 Problem Mood disorder F39 Active 63044489 Problem Attention deficit hyperactivity disorder (ADHD), predominantly inattentive type F90.0 Active 67792521 Problem Noncompliance w/medication treatment due to intermit use of medication Z91.14 Active 590467219 Problem skilled nursing 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.899 Active 184003960 Problem Anxiety F41.9 Active 24954979 Problem Generalized anxiety disorder F41.1 Active 58409392 Problem Noncompliance of patient with dietary regimen Z91.11 Active 264430846 Problem Major depression, chronic F32.9 Active 957686865 ALLERGIES Substance Reaction Event Type Date Status Vicoprofen VIOLATION OF CONTRACT Drug Allergy Mar, Active SOCIAL HISTORY No smoking Hx information available PLAN OF CARE Activity Details Follow Up 4 Weeks Reason:dm2 VITAL SIGNS Height 77 in 2016-03-20 Weight 264.0 lbs 2016-03-20 Temperature 98.3 degrees Fahrenheit 2016-03-20 Heart Rate 120 bpm 2016-03-20 Respiratory Rate 22 2016-03-20 BMI 31.30 kg/m2 2016-03-20 Blood pressure systolic 162 mmHg 2016-03-20 Blood pressure diastolic 110 mmHg 2016-03-20 MEDICATIONS Medication Instructions Dosage Frequency Start Date End Date Duration Status Zofran 8 MG Orally 3 times a day 1 tablet 8h 10 Active Amlodipine Besylate 10 MG TAKE ONE TABLET BY MOUTH DAILY 30 Active Potassium Chloride Nessa ER 10 MEQ TAKE ONE TABLET BY MOUTH ONCE DAILY 30 Active Victoza 18 MG/3ML INJECT 1.8 MG SUBCUTANEOUSLY DAILY 30 Active Lantus 100 UNIT/ML Subcutaneous Once a day 60 units 24h Active OneTouch Delica Lancets 33G 33 USE LANCETS TO TEST TWO TIMES A DAY 50 Active Aspirin 325 mg take 1 tablet (325 mg) by oral route once daily Jun, Active Insulin Syringe 31G X 5/16 as directed Feb, Active Metformin HCl 1000 MG TAKE ONE TABLET 12h 30 Active Benicar HCT 40-25 MG Orally Once a day 1 tablet 24h 30 Active Levemir FlexTouch 100 UNIT/ML INJECT 60 UNITS SUBCUTANEOUSLY DAILY (MUST HAVE DIABETIC APPOINTMENT FOR REFILLS) 25 Active OneTouch Ultra Test - USE ONE STRIP TO TEST TWICE A DAY 25 Active Atorvastatin Calcium 10 MG TAKE ONE TABLET BY MOUTH ONCE DAILY 30 Active Lexapro 20 MG TAKE ONE TABLET BY MOUTH ONCE DAILY. 30 Active Keppra 750 MG 1 tablet 12h 27 Mar, 2014 30 Active Triamcinolone Acetonide 0.1 % Externally Twice a day 1 application to affected area 12h 30 Aug, 2015 Active OneTouch Ultra Test USE ONE STRIP TO TEST TWICE A DAY. DX E11.65 Active RESULTS Name Result Date Reference Range A1C (IN HOUSE) 2016-03-20 A1C IN HOUSE >14.0 4.3 - 5.6 % Previous A1c 11.3 Lot [id number] Exp date PROCEDURES Procedure Date Ordered Related Diagnosis Body Site GLYCATED HEMOGLOBIN TEST Mar 20, 2016 [facility] VISIT ESTABLISHED PATIENT Mar 20, 2016 Office Visit, Est Pt., Level 3 Mar 20, 2016 IMMUNIZATIONS No Known Immunizations
--- OUTSIDE RECORDS SUMMARY | 2018-02-25 23:42 | XMS REPORT ---
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 Active Problem [facility] 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.4 Active 331057632 Problem Type 2 diabetes mellitus with diabetic nephropathy E11.21 Active 764328912 Problem Type 2 diabetes mellitus with hyperglycemia E11.65 Active 635607675 Problem Uncontrolled type 2 diabetes mellitus without complication, without long-term 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 E11.65 Active 315279040 Problem Diabetes type 2, uncontrolled E11.65 Active 253750309 Problem Noncompliance of patient with dietary regimen Z91.11 Active 075867495 Problem Mood disorder F39 Active 79335027 Problem Attention deficit hyperactivity disorder (ADHD), predominantly inattentive type F90.0 Active 70938112 Problem Major depression, chronic F32.9 Active 066330343 Problem Generalized anxiety disorder F41.1 Active 10289222 Problem Noncompliance w/medication treatment due to intermit use of medication Z91.14 Active 470468351 Problem Recurrent major depressive disorder, in partial remission F33.41 Active 29591094 Problem 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 Active 323806470 Problem Attention deficit hyperactivity disorder, combined type F90.2 Active 07241419 ALLERGIES No Information ENCOUNTERS Encounter Location Date Diagnosis [facility] [address] [facility] [id number] [address] Aug, [facility] [id number] [place] [address] 90854- 5441 Aug, [facility] [address], [place] [address] 12[address] July, Generalized anxiety disorder F41.1 ; Bipolar II disorder F31.81 ; Attention deficit hyperactivity disorder, combined type F90.2 ; Cannabis abuse F12.10 and Amphetamine and psychostimulant abuse, 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 [facility] [id number] [place] [address] 94556- 3428 Mar, Type 2 diabetes mellitus with diabetic nephropathy E11.21 [facility] [id number] [place] [address] 72140- 6053 Mar, Anxiety F41.9 ; Diabetes type 2, uncontrolled E11.65 and Tooth infection K04.7 [facility] [id number] [place] [address] 42963- 3566 Mar, Type 2 diabetes mellitus with diabetic nephropathy E11.21 [facility] [id number] [place] [address] 25238- 9403 Feb, [facility] [id number] [place] [address] 47719- 2214 Jan, Type 2 diabetes mellitus with diabetic nephropathy E11.21 [facility] [address] [id number], [place] [address] 7621 Dec, Type 2 diabetes mellitus with diabetic nephropathy E11.21 [facility] [id number], [place] [address] 7456 Nov, Mood disorder F39 and Type 2 diabetes mellitus with hyperglycemia E11.65 [facility] [id number] [place] [address] 86492- 3532 Oct, Mood disorder F39 and Type 2 diabetes mellitus with hyperglycemia E11.65 [facility] [id number], [place] [address] 7172 Sep, Type 2 diabetes mellitus with diabetic nephropathy E11.21 and Seizures R56.9 [facility] [address] [place] [address] 2195 Sep, [facility] [address], [place] [address] 6790 Sep, [facility] [address], [place] [address] 5980 Sep, [facility] [address], [place] [address] 7549 July, [facility] [address], [place] [address] 6279 Jun, [facility] [id number] [place] [address] 76443- 4441 Jun, [facility] [address], [place] [address] 2649 Jun, Uncontrolled type 2 diabetes mellitus without complication, without long-term 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 E11.65 [facility] [address], [place] [address] 6056 May, [facility] [address], [place] [address]- 5276 May, [facility] [address], [place] [address] 0987 Mar, Generalized anxiety disorder F41.1 ; Major depression F32.9 ; Attention deficit hyperactivity disorder, combined type F90.2 ; Amphetamine and psychostimulant abuse, 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 and Cannabis abuse F12.10 [facility] [id number], [place] [address] 8211 Mar, Type 2 diabetes mellitus with diabetic nephropathy E11.21 ; Type 2 diabetes mellitus with hyperglycemia E11.65 and [facility] 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.4 [facility] [address], [place] [address] 4916 Feb, [facility] [address], [place] [address]- 2072 Jan, [facility] [address], [place] [address]- 2816 Dec, [facility] [id number] [place] [address] 96220- 0980 Dec, Generalized anxiety disorder F41.1 ; Attention deficit hyperactivity disorder, combined type F90.2 and Recurrent major depressive disorder, in partial remission F33.41 [facility] [id number] [place] [address] 01642- 3048 Dec, Diabetes type 2, uncontrolled E11.65 [facility] [id number], [place] [address]- 7817 Dec, [facility] [id number] [place] [address] 97864- 1470 Dec, [facility] [id number] [place] [address] 18807- 7529 Dec, [facility] [id number] [place] [address] 35371- 4143 Nov, [facility] [id number] [place] [address] 12478- 0268 Oct, Noncompliance w/medication treatment due to intermit use of medication Z91.14 [facility] [address], [place] [address]- 4425 Oct, Noncompliance w/medication treatment due to intermit use of medication Z91.14 [facility] [address], [place] [address]- 6569 Oct, [facility] [id number], [place] [address]- 9565 Oct, [facility] [address] 8326 Oct, [facility] [address], [place] [address]- 9422 Sep, Diabetic polyneuropathy associated with type 2 diabetes mellitus E11.42 [facility] [address], [place] [address]- 3442 Sep, [facility] [id number] [place] [address] 82755- 9994 Aug, Diabetes type 2, uncontrolled E11.65 and Diabetic polyneuropathy associated with type 2 diabetes mellitus E11.42 [facility] [id number] [place] [address] 49645- 2303 Aug, [facility] [id number] [place] [address] 68792- 4426 Aug, [facility] [id number] [place] [address] 38476- 8212 July, Generalized anxiety disorder F41.1 and Major depression F32.9 [facility] [id number] [place] [address] 30466- 3375 July, [facility] [id number] [place] [address] 04890- 5630 Jun, [facility] [id number] [place] [address] 45684- 4809 May, 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 ; Diabetes type 2, uncontrolled E11.65 ; Gastroenteritis K52.9 ; Malaise R53.81 and Dysrhythmia I49.9 [facility] [address], [place] [address]- 9526 May, [facility] [address], [place] [address]- 1820 May, [facility] [id number] [place] [address] 88396- 6577 Apr, [facility] [id number] [place] [address] 92335- 9193 Apr, Type 2 diabetes mellitus with hyperglycemia E11.65 [facility] [id number] [place] [address] 20087- 2546 Apr, [facility] [address] 5629 Apr, 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 ; Generalized anxiety disorder F41.1 ; Attention deficit hyperactivity disorder, combined type F90.2 and Major depression F32.9 [facility] [address], [place] [address]- 1976 Mar, [facility] [id number] [place] [address] 22386- 5932 Mar, [facility] [id number] [place] [address] 85696- 6695 Mar, [facility] [id number] [place] [address] 28072- 7586 Mar, [facility] [id number] [place] [address] 58489- 1874 Mar, [facility] [id number] [place] [address] 48217- 7621 Feb, [facility] [id number] [place] [address] 91120- 7395 Feb, [facility] [address], [place] [address]- 8466 Feb, [facility] [address], [place] [address]- 7418 Jan, Diabetes type 2, uncontrolled E11.65 [facility] [address], [place] [address]- 7086 Jan, [facility] [id number] [place] [address] 66872- 5246 Jan, [facility] [address], [place] [address]- 2546 Jan, [facility] [address], [place] [address]- 5694 Dec, [facility] [address], [place] [address]- 6526 Dec, [facility] [id number] [place] [address] 54622- 0718 30 Dec, 2014 [facility] [id number] [place] [address] 80326- 7766 Dec, Type 2 diabetes mellitus with diabetic nephropathy E11.21 [facility] [id number] [place] [address] 02400- 3069 Dec, [facility] [id number] [place] [address] 24782- 0276 Dec, [facility] [id number] [place] [address] 72368- 8555 Dec, [facility] [id number] [place] [address] 85771- 1500 Dec, Attention deficit hyperactivity disorder, combined type F90.2 ; Generalized anxiety disorder F41.1 and Major depression F32.9 [facility] [id number] [place] [address] 08883- 4809 Dec, Type 2 diabetes mellitus with diabetic nephropathy E11.21 and Type 2 diabetes mellitus with hyperglycemia E11.65 [facility] [address], [place] [address]- 1109 30 Nov, 2014 [facility] [id number] [place] [address] 00911- 9854 17 Nov, 2014 [facility] [id number] [place] [address] 32342- 4279 16 Nov, 2014 [facility] [id number] [place] [address] 47333- 3065 31 Oct, 2014 [facility] [id number] [place] [address] 28270- 9462 Oct, [facility] [id number] [place] [address] 22123- 8256 Oct, [facility] [id number] [place] [address] 679878- 9666 Sep, Hepatitis C 070.70 and URI, acute 465.9 [facility] [address] 7963 Sep, [facility] [id number] [place] [address] 475370- 0801 Sep, [facility] [id number] [place] [address] 223360- 3665 Sep, [facility] [id number] [place] [address] 043609- 3330 Aug, [facility] [id number] [place] [address] 500460- 6003 Aug, [facility] [id number] [place] [address] 09666- 5008 Aug, [facility] [id number] [place] [address] 80657- 3058 Aug, [facility] [id number] [place] [address] 871035- 2361 Aug, [facility] [id number] [place] [address] 42546- 2090 Aug, [facility] [id number] [place] [address] 684317- 3774 Aug, Generalized anxiety disorder 300.02 ; Attention deficit disorder of childhood without mention of hyperactivity 314.00 and Major depressive disorder, recurrent episode, severe, specified as with psychotic behavior 296.34 [facility] [id number] [place] [address] 002010- 6136 July, Diabetes with renal manifestations, type II or unspecified type, uncontrolled 250.42 [facility] [id number] [place] [address] 47782- 7077 July, [facility] [address] [facility] [id number] [place] [address]- 1036 July, [facility] [place] [facility] [address] [id number] [place] [address]- 2331 July, [facility] [place] [facility] [address] [id number] [place] [address]- 8316 30 Jun, 2014 [facility] [place] [facility] [address] [id number] [place] [address]- 9106 14 Jun, 2014 [facility] [place] [facility] [address] [id number] [place] [address]- 2095 Jun, [facility] [place] [facility] [address] [id number] [place] [address]- 6046 30 May, 2014 [facility] [place] [facility] [address] [id number] [place] [address]- 9633 30 May, 2014 [facility] [place] [facility] [address] [id number] [place] [address]- 5291 30 May, 2014 [facility] [place] [facility] [address] [id number] [place] [address]- 6891 30 May, 2014 [facility] [place] [facility] [address] [id number] [place] [address]- 0003 May, [facility] [place] [facility] [address] [id number] [place] [address]- 4173 28 May, 2014 [facility] [place] [facility] [address] [id number] [place] [address]- 5969 May, [facility] [place] [facility] [address] [id number] [place] [address]- 0056 May, [facility] [place] [facility] [address] [id number] [place] [address]- 7446 18 May, 2014 [facility] [place] [facility] [address] [id number] [place] [address]- 2546 18 May, 2014 [facility] [place] [facility] [address] [id number] [place] [address]- 3432 May, [facility] [place] [facility] [address] [id number] [place] [address]- 0596 13 May, 2014 [facility] [place] [facility] [address] [id number] [place] [address]- 0159 May, [facility] [place] [facility] [address] [id number] [place] [address]- 0394 May, [facility] [place] [facility] [address] [id number] [place] [address]- 6346 Apr, 2014 [facility] [place] [facility] [address] [id number] [place] [address]- 1254 Apr, [facility] [place] [facility] [address] [id number] [place] [address]- 8284 Apr, 2014 [facility] [place] [facility] [address] [id number] [place] [address]- 8380 Apr, 2014 [facility] [place] [facility] [address] [id number] [place] [address]- 5460 Apr, [facility] [place] [facility] [address] [id number] [place] [address]- 9711 Apr, [facility] [place] [facility] [address] [id number] [place] [address]- 5212 Apr, [facility] [place] [facility] [address] [id number] [place] [address]- 8028 Apr, [facility] [place] [facility] [address] [id number] [place] [address]- 6215 Mar, [facility] [place] [facility] [address] [id number] [place] [address]- 3289 Mar, [facility] [place] [facility] [address] [id number] [place] [address]- 4136 Mar, [facility] [place] [facility] [address] [id number] [place] [address]- 0408 Mar, [facility] [place] [facility] [address] [id number] [place] [address]- 7258 Mar, [facility] [address] [id number] [place] [address]- 6183 Mar, [facility] [place] [facility] [address] [id number] [place] [address]- 2314 Mar, [facility] [address] [id number] [place] [address]- 9858 Mar, [facility] [place] [facility] [address] [id number] [place] [address]- 0537 Mar, [facility] [place] [facility] [address] [id number] [place] [address]- 2354 Mar, [facility] [place] [facility] [address] [id number] [place] [address]- 2085 Mar, [facility] [address] [id number] [place] [address]- 2731 Mar, [facility] [address] [id number] [place] [address]- 1047 Mar, [facility] [place] [facility] [address] [id number] [place] [address]- 8620 Mar, [facility] [address] [id number] [place] [address]- 4590 Mar, [facility] [place] [facility] [address] [id number] [place] [address]- 9593 Mar, [facility] [place] [facility] [address] [id number] [place] [address]- 9036 Feb, [facility] [place] [facility] [address] [id number] [place] [address]- 9648 Feb, [facility] [place] [facility] [address] [id number] [place] [address]- 3933 Feb, [facility] [place] [facility] [address] [id number] [place] [address]- 6548 Feb, [facility] [place] [facility] [address] [id number] [place] [address]- 4194 Feb, [facility] [place] [facility] [address] [id number] [place] [address]- 0377 Feb, [facility] [place] [facility] [address] [id number] [place] [address]- 0303 Feb, [facility] [place] [facility] [address] [id number] [place] [address]- 1273 Feb, [facility] [place] [facility] [address] [id number] [place] [address]- 2209 Feb, [facility] [place] [facility] [address] [id number] [place] [address]- 7689 Feb, [facility] [place] [facility] [address] [id number] [place] [address]- 1150 Jan, [facility] [place] [facility] [address] [id number] [place] [address]- 6759 Jan, [facility] [place] [facility] [address] [id number] [place] [address]- 1951 Jan, [facility] [place] [facility] [address] [id number] [place] [address]- 9652 Jan, [facility] [place] [facility] [address] [id number] [place] [address]- 5586 Jan, [facility] [place] [facility] [address] [id number], [place] [address]- 1424 Jan, [facility] [place] [facility] [address] [id number] [place] [address]- 4754 Jan, [facility] [place] [facility] [address] [id number], [place] [address]- 5911 Jan, [facility] [place] [facility] [address] [id number] [place] [address]- 8757 Jan, [facility] [place] [facility] [address] [id number] [place] [address]- 2748 Dec, [facility] [place] [facility] [address] [id number] [place] [address]- 4149 Dec, [facility] [place] [facility] [address] [id number] [place] [address]- 4173 Dec, [facility] [place] [facility] [address] [id number] [place] [address]- 7087 Dec, [facility] [place] [facility] [address] [id number] [place] [address]- 4507 Dec, [facility] [place] [facility] [address] [id number] [place] [address]- 1384 Dec, [facility] [place] [facility] [address] [id number] [place] [address]- 5377 Nov, 2013 [facility] [place] [facility] [address] [id number] [place] [address]- 0154 Nov, 2013 [facility] [place] [facility] [address] [id number] [place] [address]- 6085 Sep, 2013 [facility] [place] [facility] [address] [id number] [place] [address]- 3175 Nov, 2013 [facility] [place] [facility] [address] [id number] [place] [address]- 7977 Sep, 2013 [facility] [place] [facility] [address] [id number] [place] [address]- 3966 08 Nov, 2013 [facility] [place] [facility] [address] [id number] [place] [address]- 2544 Sep, 2013 [facility] [place] [facility] [address] [id number] [place] [address] Nov, 2013 [facility] [place] [facility] [address] [id number] [place] [address] Oct, [facility] [place] [facility] [address] [id number] [place] [address] Oct, [facility] [place] [facility] [address] [id number] [place] [address] Oct, [facility] [place] [facility] [address] [id number] [place] [address] Oct, [facility] [place] [facility] [address] [id number] [place] [address] Oct, [facility] [place] [facility] [address] [id number] [place] [address] Oct, [facility] [place] [facility] [address] [id number] [place] [address] Sep, [facility] [place] [facility] [address] [id number] [place] [address] Sep, [facility] [place] [facility] [address] [id number] [place] [address] Sep, [facility] [place] [facility] [address] [id number] [place] [address] Aug, [facility] [place] [facility] [address] [id number] [place] [address] Aug, [facility] [place] [facility] [address] [id number] [place] [address] July, [facility] [place] [facility] [address] [id number] [place] [address] July, [facility] [place] [facility] [address] [id number] [place] [address] Jun, [facility] [place] [facility] [address] [id number] [place] [address] Jun, [facility] [place] [facility] [address] [id number] [place] [address]- [address] Jun, [facility] [place] [facility] [address] [id number] [place] [address]- [address] Jun, [facility] [place] [facility] [address] [id number] [place] [address]- [address] Jun, [facility] [place] [facility] [address] [id number] [place] [address] Jun, [facility] [place] [facility] [address] [id number] [place] [address] Jun, [facility] [place] [facility] [address] [id number] [place] [address] Jun, [facility] [place] [facility] [address] [id number] [place] [address]- [address] Jun, [facility] [place] [facility] [address] [id number] [place] [address] Jun, [facility] [place] [facility] [address] [id number] [place] [address]- [address] Jun, [facility] [place] [facility] [address] [id number] [place] [address] Jun, [facility] [place] [facility] [address] [id number] [place] [address] May, [facility] [place] [facility] [address] [id number] [place] [address] May, [facility] [place] [facility] [address] [id number] [place] [address] May, [facility] [place] [facility] [address] [id number] [place] [address] May, [facility] [place] [facility] [address] [id number] [place] [address] May, [facility] [place] [facility] [address] [id number] [place] [address] Apr, [facility] [place] [facility] [address] [id number] [place] [address] Apr, [facility] [place] [facility] [address] [id number] [place] [address] Apr, [facility] [place] [facility] [address] [id number] [place] [address] 07 Apr, 2013 [facility] [address] [id number] [place] [address] Mar, [facility] [address] [id number] [place] [address] Mar, [facility] [address] [id number] [place] [address] Mar, [facility] [address] [id number] [place] [address] Mar, [facility] [address] [id number] [place] [address] 2008 Feb, [facility] [address] [id number] [place] [address] Feb, [facility] [address] [id number] [place] [address] Feb, [facility] [address] [id number] [place] [address] Feb, [facility] [address] [id number] [place] [address] Jan, [facility] [address] [id number] [place] [address] Jan, [facility] [place] [place] [facility] [address] [id number] [place] [address] Jan, [facility] [place] [facility] [address] [id number] [place] [address] Jan, [facility] [place] [facility] [address] [id number] [place] [address] Dec, [facility] [place] [facility] [address] [id number] [place] [address] Nov, [facility] [place] [facility] [address] [id number] [place] [address] Nov, [facility] [place] [facility] [address] [id number] [place] [address] Nov, [facility] [place] [facility] [address] [id number] [place] [address] Nov, [facility] [place] [facility] [address] [id number] [place] [address] Nov, [facility] [place] [facility] [address] [id number] [place] [address] Oct, [facility] [place] [facility] [address] [id number] [place] [address] Oct, [facility] [place] [facility] [address] [id number] [place] [address] Sep, [facility] [place] [facility] [address] [id number] [place] [address] Sep, [facility] [place] [facility] [address] [id number] [place] [address] Sep, [facility] [place] [facility] [address] [id number] [place] [address] Sep, [facility] [place] [facility] [address] [id number] [place] [address] Sep, [facility] [place] [facility] [address] [id number] [place] [address] Aug, [facility] [place] [facility] [address] [id number] [place] [address] Aug, [facility] [place] [facility] [address] [id number] [place] [address] Aug, [facility] [place] [facility] [address] [id number] [place] [address] Aug, [facility] [place] [facility] [address] [id number] [place] [address] July, [facility] [place] [facility] [address] [id number] [place] [address] July, [facility] [address] [id number] [place] [address] July, [facility] [address] [id number] [place] [address] Jun, [facility] [address] [id number] [place] [address] May, [facility] [place] [facility] [address] [id number] [place] [address] May, [facility] [address] [id number] [place] [address] Apr, [facility] [place] [facility] [address] [id number] [place] [address] Mar, [facility] [address] [id number] [place] [address] Mar, [facility] [address] [id number] [place] [address] Mar, [facility] [address] [id number] [place] [address] Mar, [facility] [address] [id number] [place] [address] Feb, [facility] [address] [id number] [place] [address] Feb, [facility] [place] [facility] [address] [id number] [place] [address]- [address] Feb, [facility] [place] [facility] [address] [id number] [place] [address] Feb, [facility] [place] [facility] [address] [id number] [place] [address]- [address] Jan, [facility] [place] [facility] [address] [id number] [place] [address] Jan, [facility] [place] [facility] [address] [id number] [place] [address]- [address] Sep, [facility] [place] [facility] [address] [id number] [place] [address]- [address] Sep, [facility] [place] [facility] [address] [id number] [place] [address] Aug, [facility] [place] [facility] [address] [id number] [place] [address] Aug, [facility] [place] [facility] [address] [id number] [place] [address]- [address] Jun, [facility] [place] [facility] [address] [id number] [place] [address] May, [facility] [place] [facility] [address] [id number] [place] [address] May, [facility] [place] [facility] [address] [id number] [place] [address] Mar, [facility] [place] [facility] [address] [id number] [place] [address] Mar, [facility] [place] [facility] [address] [id number] [place] [address]- [address] Feb, [facility] [place] [facility] [address] [id number] [place] [address]- [address] Feb, [facility] [place] [facility] [address] [id number] [place] [address]- [address] Feb, [facility] [place] [facility] [address] [id number] [place] [address] 14 Dec, 2010 [facility] [place] [facility] [address] [id number] [place] [address] 15 Aug, 2010 [facility] [place] [facility] [address] [id number] [place] [address] 18 May, 2010 [facility] [place] [facility] [address] [id number], [place] [address] Mar, [facility] [address] [facility] [id number] [place] [address] Oct, [facility] [address] [facility] [id number], [place] [address] Sep, [facility] [address] [facility] [id number] [place] [address] Jun, IMMUNIZATIONS No Known Immunizations SOCIAL HISTORY Never Assessed REASON FOR VISIT Controlled Med Refill PLAN OF CARE VITAL SIGNS MEDICATIONS Medication Instructions Dosage Frequency Start Date End Date Duration Status Ativan 2 MG Orally 2 times a day 1 tablet as needed 12h 21 Sep, 2016 Active RESULTS No Results PROCEDURES No Known [...]
--- OUTSIDE RECORDS SUMMARY | 2018-02-25 23:42 | XMS REPORT ---
Author Author MELISSA FERNANDEZ [facility] Address [address] [place] [address] Care Team Providers Care Occupational Health And Safety Adviser Name Role Phone MELISSA FERNANDEZ Unavailable PROBLEMS Type Condition ICD9-CM Code NLU25-YF Code Onset Dates Condition Status SNOMED Code Problem Cannabis abuse F12.10 Active 74770038 Problem Type 2 diabetes mellitus with hyperglycemia E11.65 Active 833741805 Problem Major depression F32.9 Active 168063455 Problem Bipolar II disorder F31.81 Active 13467112 Problem Anxiety F41.9 Active 17074799 Problem Amphetamine and psychostimulant abuse, 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 Active Problem half-way 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.4 Active 758476895 Problem Type 2 diabetes mellitus with diabetic nephropathy E11.21 Active 999359001 Problem Type 2 diabetes mellitus with hyperglycemia E11.65 Active 985896547 Problem Uncontrolled type 2 diabetes mellitus without complication, without long-term 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 E11.65 Active 130401924 Problem Diabetes type 2, uncontrolled E11.65 Active 211243289 Problem Noncompliance of patient with dietary regimen Z91.11 Active 712578036 Problem Mood disorder F39 Active 05325395 Problem Attention deficit hyperactivity disorder (ADHD), predominantly inattentive type F90.0 Active 83155805 Problem Major depression, chronic F32.9 Active 734017245 Problem Generalized anxiety disorder F41.1 Active 65291394 Problem Noncompliance w/medication treatment due to intermit use of medication Z91.14 Active 217059420 Problem Recurrent major depressive disorder, in partial remission F33.41 Active 12453928 Problem intermediate accountant 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.899 Active 365338150 Problem Attention deficit hyperactivity disorder, combined type F90.2 Active 10030445 ALLERGIES No Information ENCOUNTERS Encounter Location Date Diagnosis [facility] [address] [facility] [id number], [place] [address] Aug, [facility] [id number] [place] [address] 98615- 6349 July, Generalized anxiety disorder F41.1 ; Bipolar II disorder F31.81 ; Attention deficit hyperactivity disorder, combined type F90.2 ; Cannabis abuse F12.10 and Amphetamine and psychostimulant abuse, 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 [facility] [id number] [place] [address] 50099- 1147 Mar, Type 2 diabetes mellitus with diabetic nephropathy E11.21 [facility] [id number] [place] [address] 81510- 2800 Mar, Anxiety F41.9 ; Diabetes type 2, uncontrolled E11.65 and Tooth infection K04.7 [facility] [id number] [place] [address] 33780- 2266 Mar, Type 2 diabetes mellitus with diabetic nephropathy E11.21 [facility] [id number] [place] [address] 97851- 7264 Feb, [facility] [id number] [place] [address] 14554- 8900 Jan, Type 2 diabetes mellitus with diabetic nephropathy E11.21 [facility] [id number] [place] [address] 95443- 6036 Dec, Type 2 diabetes mellitus with diabetic nephropathy E11.21 [facility] [id number] [place] [address] 82628- 3364 Nov, Mood disorder F39 and Type 2 diabetes mellitus with hyperglycemia E11.65 [facility] [id number] [place] [address] 77426- 3039 Oct, Mood disorder F39 and Type 2 diabetes mellitus with hyperglycemia E11.65 [facility] [id number] [place] [address] 62495- 4048 Sep, Type 2 diabetes mellitus with diabetic nephropathy E11.21 and Seizures R56.9 [facility] [id number] [place] [address] 00813- 9729 Sep, [facility] [place] [address] [place] [address] 6290 Sep, [facility] [address], [place] [address] 6338 Sep, [facility] [id number] [place] [address] 87654- 3107 July, [facility] [id number] [place] [address] 96940- 5164 Jun, [facility] [id number] [place] [address] 25576- 4788 Jun, [facility] [id number] [place] [address] 27164- 8933 Jun, Uncontrolled type 2 diabetes mellitus without complication, without long-term 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 E11.65 [facility] [place] [id number] [place] [address] 29655- 6398 May, [facility] [id number] [place] [address] 94555- 2481 May, [facility] [id number] [place] [address] 24080- 4981 Mar, Generalized anxiety disorder F41.1 ; Major depression F32.9 ; Attention deficit hyperactivity disorder, combined type F90.2 ; Amphetamine and psychostimulant abuse, 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 and Cannabis abuse F12.10 [facility] [address] [address] 3393 Mar, Type 2 diabetes mellitus with diabetic nephropathy E11.21 ; Type 2 diabetes mellitus with hyperglycemia E11.65 and half-way 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.4 [facility] [id number] [place] [address] 44791- 4665 Feb, [facility] [id number] [place] [address] 31296- 1328 Jan, [facility] [id number] [place] [address] 23545- 8550 Dec, [facility] [address], [place] [address] 0551 Dec, Generalized anxiety disorder F41.1 ; Attention deficit hyperactivity disorder, combined type F90.2 and Recurrent major depressive disorder, in partial remission F33.41 [facility] [address], [place] [address]- 4784 Dec, Diabetes type 2, uncontrolled E11.65 [facility] [id number] [place] [address] 52499- 5503 Dec, [facility] [address] [id number] [address] 6418 Dec, [facility] [place] [id number] [place] [address] 63853- 3983 Dec, [facility] [address] [address]- 1022 Nov, [facility] [place] [id number] [place] [address] 49991- 0751 Oct, Noncompliance w/medication treatment due to intermit use of medication Z91.14 [facility] [place] [address] [address] 3715 Oct, Noncompliance w/medication treatment due to intermit use of medication Z91.14 [facility] [address], [place] [address]- 3431 Oct, [facility] [place] [address], [place] [address]- 4971 Oct, [facility] [address] [address]- 4258 Oct, [facility] [address] [address] 8936 Sep, Diabetic polyneuropathy associated with type 2 diabetes mellitus E11.42 [facility] [address], [place] [address]- 4201 Sep, [facility] [id number] [place] [address] 26692- 4273 Aug, Diabetes type 2, uncontrolled E11.65 and Diabetic polyneuropathy associated with type 2 diabetes mellitus E11.42 [facility] [id number] [place] [address] 60492- 2708 Aug, [facility] [id number] [place] [address] 48283- 2285 Aug, [facility] [id number] [place] [address] 12640- 3981 July, Generalized anxiety disorder F41.1 and Major depression F32.9 [facility] [id number] [place] [address] 74010- 3017 July, [facility] [id number] [place] [address] 68553- 2544 Jun, [facility] [id number] [place] [address] 01692- 3931 May, intermediate accountant 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.899 ; Diabetes type 2, uncontrolled E11.65 ; Gastroenteritis K52.9 ; Malaise R53.81 and Dysrhythmia I49.9 [facility] [id number] [place] [address] 30274- 5286 May, [facility] [id number] [place] [address] 60834- 1636 May, [facility] [id number] [place] [address] 61222- 9533 Apr, [facility] [id number] [place] [address] 96307- 6311 Apr, Type 2 diabetes mellitus with hyperglycemia E11.65 [facility] [id number] [place] [address] 61914- 8670 Apr, [facility] [id number] [place] [address] 15986- 1394 Apr, intermediate accountant 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.899 ; Generalized anxiety disorder F41.1 ; Attention deficit hyperactivity disorder, combined type F90.2 and Major depression F32.9 [facility] [address], [place] [address]- 2309 Mar, [facility] [address], [place] [address]- 2096 Mar, [facility] [address], [place] [address]- 4480 Mar, [facility] [id number] [place] [address] 34951- 4365 Mar, [facility] [id number] [place] [address] 61566- 3722 Mar, [facility] [id number] [place] [address] 11126- 4606 Feb, [facility] [address], [place] [address]- 2033 Feb, [facility] [id number] [place] [address] 486142- 4465 Feb, [facility] [address], [place] [address]- 0432 Jan, Diabetes type 2, uncontrolled E11.65 [facility] [address], [place] [address]- 2777 Jan, [facility] [address], [place] [address]- 8959 Jan, [facility] [id number] [address]- 7336 Jan, [facility] [address], [place] [address]- 5346 Dec, [facility] [address], [place] [address]- 7201 Dec, [facility] [address], [place] [address]- 9012 Dec, [facility] [id number] [place] [address] 11963- 9229 Dec, Type 2 diabetes mellitus with diabetic nephropathy E11.21 [facility] [id number] [place] [address] 95029- 4643 Dec, [facility] [id number] [place] [address] 01882- 6165 Dec, [facility] [id number] [place] [address] 75050- 3314 Dec, [facility] [id number] [place] [address] 21208- 5077 Dec, Attention deficit hyperactivity disorder, combined type F90.2 ; Generalized anxiety disorder F41.1 and Major depression F32.9 [facility] [id number] [place] [address] 60894- 9274 Dec, Type 2 diabetes mellitus with diabetic nephropathy E11.21 and Type 2 diabetes mellitus with hyperglycemia E11.65 [facility] [id number] [place] [address] 30950- 3402 30 Nov, 2014 [facility] [address], [place] [address]- 9634 17 Nov, 2014 [facility] [id number] [place] [address] 78651- 4055 16 Nov, 2014 [facility] [id number] [place] [address] 77766- 8151 Oct, [facility] [id number] [place] [address] 03815- 9802 Oct, [facility] [address]- 3185 Oct, [facility] [id number] [place] [address] 87661- 8327 Sep, Hepatitis C 070.70 and URI, acute 465.9 [facility] [id number] [place] [address] 54494- 1854 Sep, [facility] [id number] [place] [address] 43445- 9230 Sep, [facility] [id number] [place] [address] 26939- 6072 Sep, [facility] [id number] [place] [address] 86434- 2131 Aug, [facility] [id number] [place] [address] 03227- 4836 Aug, [facility] [id number] [place] [address] 50106- 4613 Aug, [facility] [id number] [place] [address] 79955- 8402 Aug, [facility] [id number] [place] [address] 07546- 7972 Aug, [facility] [id number] [place] [address] 35261- 0221 Aug, [facility] [address], [place] [address]- 1252 Aug, Generalized anxiety disorder 300.02 ; Attention deficit disorder of childhood without mention of hyperactivity 314.00 and Major depressive disorder, recurrent episode, severe, specified as with psychotic behavior 296.34 [facility] [address], [place] [address]- 4289 July, Diabetes with renal manifestations, type II or unspecified type, uncontrolled 250.42 [facility] [id number] [place] [address] 74531- 8352 July, [facility] [id number] [place] [address] 13321- 6843 July, [facility] [address] [facility] [id number] [place] [address]- 3496 July, [facility] [place] [facility] [address] [id number] [place] [address]- 0077 30 Jun, 2014 [facility] [place] [facility] [address] [id number] [place] [address]- 9596 14 Jun, 2014 [facility] [place] [facility] [address] [id number] [place] [address]- 3724 Jun, [facility] [place] [facility] [address] [id number] [place] [address]- 4145 30 May, 2014 [facility] [place] [facility] [address] [id number] [place] [address]- 0814 30 May, 2014 [facility] [place] [facility] [address] [id number] [place] [address]- 1528 30 May, 2014 [facility] [place] [facility] [address] [id number] [place] [address]- 6538 30 May, 2014 [facility] [place] [facility] [address] [id number] [place] [address]- 5271 May, [facility] [place] [facility] [address] [id number] [place] [address]- 4126 May, [facility] [place] [facility] [address] [id number] [place] [address]- 1497 May, [facility] [place] [facility] [address] [id number] [place] [address]- 3026 26 May, 2014 [facility] [place] [facility] [address] [id number] [place] [address]- 4086 18 May, 2014 [facility] [place] [facility] [address] [id number] [place] [address]- 5120 18 May, 2014 [facility] [place] [facility] [address] [id number] [place] [address]- 5696 May, [facility] [place] [facility] [address] [id number] [place] [address]- 5876 May, [facility] [place] [facility] [address] [id number] [place] [address]- 0035 May, [facility] [place] [facility] [address] [id number] [place] [address]- 4014 May, [facility] [place] [facility] [address] [id number] [place] [address]- 2799 Apr, [facility] [place] [facility] [address] [id number] [place] [address]- 6824 Apr, [facility] [place] [facility] [address] [id number] [place] [address]- 7595 Apr, [facility] [place] [facility] [address] [id number] [place] [address]- 7861 Apr, [facility] [place] [facility] [address] [id number] [place] [address]- 0204 Apr, [facility] [place] [facility] [address] [id number] [place] [address]- 1026 Apr, [facility] [place] [facility] [address] [id number] [place] [address]- 5542 Apr, [facility] [place] [facility] [address] [id number] [place] [address]- 4611 Apr, [facility] [place] [facility] [address] [id number] [place] [address]- 0496 Mar, [facility] [place] [facility] [address] [id number] [place] [address]- 4264 Mar, [facility] [place] [facility] [address] [id number] [place] [address]- 2231 Mar, [facility] [place] [facility] [address] [id number] [place] [address]- 3666 Mar, [facility] [place] [facility] [address] [id number] [place] [address]- 5572 Mar, [facility] [place] [facility] [address] [id number] [place] [address]- 5788 Mar, [facility] [address] [id number] [place] [address]- 3242 Mar, [facility] [place] [facility] [address] [id number] [place] [address]- 7099 Mar, [facility] [address] [id number] [place] [address]- 9204 Mar, [facility] [place] [facility] [address] [id number] [place] [address]- 1893 Mar, [facility] [address] [id number] [place] [address]- 6571 Mar, [facility] [place] [facility] [address] [id number] [place] [address]- 3726 Mar, [facility] [address] [id number] [place] [address]- 7937 Mar, [facility] [address] [id number] [place] [address]- 8596 Mar, [facility] [place] [facility] [address] [id number] [place] [address]- 9231 Mar, [facility] [address] [id number] [place] [address]- 2292 Mar, [facility] [place] [facility] [address] [id number] [place] [address]- 5245 Feb, [facility] [place] [facility] [address] [id number] [place] [address]- 9167 Feb, [facility] [place] [facility] [address] [id number] [place] [address]- 7076 Feb, [facility] [place] [facility] [address] [id number] [place] [address]- 6862 Feb, [facility] [place] [facility] [address] [id number] [place] [address]- 3124 Feb, [facility] [place] [facility] [address] [id number] [place] [address]- 6783 Feb, [facility] [place] [facility] [address] [id number] [place] [address]- 5595 Feb, [facility] [place] [facility] [address] [id number] [place] [address]- 7233 Feb, [facility] [place] [facility] [address] [id number] [place] [address] Feb, [facility] [place] [facility] [address] [id number] [place] [address] Feb, [facility] [place] [facility] [address] [id number] [place] [address] Jan, [facility] [place] [facility] [address] [id number] [place] [address] Jan, [facility] [place] [facility] [address] [id number] [place] [address] Jan, [facility] [place] [facility] [address] [id number] [place] [address] Jan, [facility] [place] [facility] [address] [id number], [place] [address] Jan, [facility] [place] [facility] [address] [id number], [place] [address] Jan, [facility] [place] [facility] [address] [id number], [place] [address] Jan, [facility] [place] [facility] [address] [id number] [place] [address] Jan, [facility] [place] [facility] [address] [id number], [place] [address] Jan, [facility] [place] [facility] [address] [id number] [place] [address] Dec, [facility] [place] [facility] [address] [id number] [place] [address] Dec, [facility] [place] [facility] [address] [id number] [place] [address] Dec, [facility] [place] [facility] [address] [id number] [place] [address] Dec, [facility] [place] [facility] [address] [id number] [place] [address] Dec, [facility] [place] [facility] [address] [id number] [place] [address] Dec, [facility] [place] [facility] [address] [id number] [place] [address] Nov, 2013 [facility] [place] [facility] [address] [id number] [place] [address] Nov, 2013 [facility] [place] [facility] [address] [id number] [place] [address]- [address] 09 Nov, 2013 [facility] [place] [facility] [address] [id number] [place] [address]- [address] 09 Nov, 2013 [facility] [place] [facility] [address] [id number] [place] [address] 08 Nov, 2013 [facility] [place] [facility] [address] [id number] [place] [address] 08 Nov, 2013 [facility] [place] [facility] [address] [id number] [place] [address]- [address] 08 Nov, 2013 [facility] [place] [facility] [address] [id number] [place] [address] 08 Nov, 2013 [facility] [place] [facility] [address] [id number] [place] [address] Oct, [facility] [place] [facility] [address] [id number] [place] [address] Oct, [facility] [place] [facility] [address] [id number] [place] [address] Oct, [facility] [place] [facility] [address] [id number] [place] [address] Oct, [facility] [place] [facility] [address] [id number] [place] [address] Oct, [facility] [place] [facility] [address] [id number] [place] [address] Oct, [facility] [place] [facility] [address] [id number] [place] [address] Sep, [facility] [place] [facility] [address] [id number] [place] [address] Sep, [facility] [place] [facility] [address] [id number] [place] [address] Sep, [facility] [place] [facility] [address] [id number] [place] [address] Aug, [facility] [place] [facility] [address] [id number] [place] [address] Aug, [facility] [place] [facility] [address] [id number] [place] [address] July, [facility] [place] [facility] [address] [id number] [place] [address] July, [facility] [place] [facility] [address] [id number] [place] [address] Jun, [facility] [place] [facility] [address] [id number] [place] [address] Jun, [facility] [place] [facility] [address] [id number] [place] [address] Jun, [facility] [place] [facility] [address] [id number] [place] [address] Jun, [facility] [place] [facility] [address] [id number] [place] [address] Jun, [facility] [place] [facility] [address] [id number] [place] [address] Jun, [facility] [place] [facility] [address] [id number] [place] [address] Jun, [facility] [place] [facility] [address] [id number] [place] [address] Jun, [facility] [place] [facility] [address] [id number] [place] [address] Jun, [facility] [place] [facility] [address] [id number] [place] [address] Jun, [facility] [place] [facility] [address] [id number] [place] [address] Jun, [facility] [place] [facility] [address] [id number] [place] [address] Jun, [facility] [place] [facility] [address] [id number] [place] [address] May, [facility] [place] [facility] [address] [id number] [place] [address] May, [facility] [place] [facility] [address] [id number] [place] [address] 14[address] May, [facility] [place] [facility] [address] [id number] [place] [address] May, [facility] [place] [facility] [address] [id number] [place] [address] May, [facility] [place] [facility] [address] [id number] [place] [address]30 Apr, [facility] [place] [facility] [address] [id number] [place] [address]64 Apr, [facility] [place] [facility] [address] [id number] [place] [address] Apr, [facility] [place] [facility] [address] [id number] [place] [address]- [address] Apr, [facility] [place] [facility] [address] [id number] [place] [address] 17 Mar, 2013 [facility] [address] [id number] [place] [address] 17 Mar, 2013 [facility] [place] [facility] [address] [id number] [place] [address] Mar, [facility] [address] [id number] [place] [address] Mar, [facility] [place] [facility] [address] [id number] [place] [address]106 Feb, [facility] [address] [id number] [place] [address] Feb, [facility] [address] [id number] [place] [address] 8560 Feb, [facility] [address] [id number] [place] [address] Feb, [facility] [address] [id number] [place] [address] Jan, [facility] [place] [facility] [address] [id number] [place] [address] Jan, [facility] [address] [id number] [place] [address] 37[address] Jan, [facility] [place] [facility] [address] [id number] [place] [address] 65[address] Jan, [facility] [place] [facility] [address] [id number] [place] [address]- 8565 Dec, [facility] [place] [facility] [address] [id number] [place] [address] Nov, [facility] [place] [facility] [address] [id number] [place] [address] Nov, [facility] [place] [facility] [address] [id number] [place] [address] 69[address] Nov, [facility] [address] [id number] [place] [address]- [address]88 Nov, [facility] [place] [facility] [address] [id number] [place] [address] Nov, [facility] [place] [facility] [address] [id number] [place] [address] Oct, [facility] [place] [facility] [address] [id number] [place] [address] Oct, [facility] [place] [facility] [address] [id number] [place] [address] Sep, [facility] [place] [facility] [address] [id number] [place] [address] Sep, [facility] [place] [facility] [address] [id number] [place] [address] Sep, [facility] [place] [facility] [address] [id number] [place] [address]- [address] Sep, [facility] [place] [facility] [address] [id number] [place] [address]65 Sep, [facility] [place] [facility] [address] [id number] [place] [address] Aug, [facility] [place] [facility] [address] [id number] [place] [address]- 9[address] Aug, [facility] [place] [facility] [address] [id number] [place] [address] Aug, [facility] [place] [facility] [address] [id number] [place] [address] Aug, [facility] [place] [facility] [address] [id number] [place] [address]- [address] July, [facility] [place] [facility] [address] [id number] [place] [address]- [address]44 July, [facility] [place] [facility] [address] [id number] [place] [address] 2546 July, [facility] [address] [id number] [place] [address] Jun, [facility] [place] [facility] [address] [id number] [place] [address] 2546 May, [facility] [address] [id number] [place] [address]- 2546 May, [facility] [place] [facility] [address] [id number] [place] [address] 2546 Apr, [facility] [place] [facility] [address] [id number] [place] [address]- 7716 Mar, [facility] [place] [facility] [address] [id number] [place] [address]- 2546 Mar, [facility] [address] [id number] [place] [address]- 5320 Mar, [facility] [place] [facility] [address] [id number] [place] [address]- 0424 Mar, [facility] [address] [id number] [place] [address]- 8848 Feb, [facility] [address] [id number] [place] [address]- 9276 Feb, [facility] [place] [facility] [address] [id number] [place] [address]- 2546 Feb, [facility] [place] [facility] [address] [id number] [place] [address]- 2546 Feb, [facility] [place] [facility] [address] [id number] [place] [address]- 2546 Jan, [facility] [place] [facility] [address] [id number] [place] [address]- 2546 Jan, [facility] [place] [facility] [address] [id number] [place] [address]- 2546 Sep, [facility] [place] [facility] [address] [id number] [place] [address]- [address] Sep, [facility] [place] [facility] [address] [id number] [place] [address]- 4299 Aug, [facility] [place] [facility] [address] [id number] [place] [address]- 6476 Aug, [facility] [place] [facility] [address] [id number] [place] [address]- 5466 Jun, [facility] [place] [facility] [address] [id number] [place] [address]- 7330 May, [facility] [place] [facility] [address] [id number] [place] [address]- 1726 May, [facility] [place] [facility] [address] [id number] [place] [address]- 0863 Mar, [facility] [place] [facility] [address] [id number] [place] [address]- 4932 Mar, [facility] [place] [facility] [address] [id number] [place] [address]- 9282 Feb, [facility] [place] [facility] [address] [id number] [place] [address]- 9476 Feb, [facility] [place] [facility] [address] [id number] [place] [address]- 0252 Feb, [facility] [place] [facility] [address] [id number] [place] [address]- [address] 14 Dec, 2010 [facility] [place] [facility] [address] [id number] [place] [address]- [address]71 15 Aug, 2010 [facility] [place] [facility] [address] [id number] [place] [address]- [address]136 18 May, 2010 [facility] [place] [facility] [address] [id number] [place] [address]- [address] 10 Mar, 2010 [facility] [place] [facility] [address] [id number] [place] [address]- [address] Oct, [facility] [address] [facility] [id number] [place] [address]- [address] Sep, [facility] [address] [facility] [id number] [place] [address]- [address]46 Jun, IMMUNIZATIONS No Known Immunizations SOCIAL HISTORY Never Assessed REASON FOR VISIT narc violation. PLAN OF CARE VITAL SIGNS MEDICATIONS Unknown [...]
--- OUTSIDE RECORDS SUMMARY | 2018-02-25 23:43 | XMS REPORT ---
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 Active Problem shelter 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.4 Active 640981817 Problem Type 2 diabetes mellitus with diabetic nephropathy E11.21 Active 923568334 Problem Type 2 diabetes mellitus with hyperglycemia E11.65 Active 435143191 Problem Uncontrolled type 2 diabetes mellitus without complication, without long-term 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 E11.65 Active 917834672 Problem Diabetes type 2, uncontrolled E11.65 Active 753645855 Problem Noncompliance of patient with dietary regimen Z91.11 Active 808127247 Problem Mood disorder F39 Active 62714182 Problem Attention deficit hyperactivity disorder (ADHD), predominantly inattentive type F90.0 Active 90502819 Problem Major depression, chronic F32.9 Active 289443703 Problem Generalized anxiety disorder F41.1 Active 84462015 Problem Noncompliance w/medication treatment due to intermit use of medication Z91.14 Active 005419402 Problem Recurrent major depressive disorder, in partial remission F33.41 Active 63963020 Problem 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 Active 879426868 Problem Attention deficit hyperactivity disorder, combined type F90.2 Active 19814213 ALLERGIES No Information ENCOUNTERS Encounter Location Date Diagnosis [facility] [address] [facility] [id number] [address] Aug, [facility] [id number] [place] [address] 98697- 1493 July, Generalized anxiety disorder F41.1 ; Bipolar II disorder F31.81 ; Attention deficit hyperactivity disorder, combined type F90.2 ; Cannabis abuse F12.10 and Amphetamine and psychostimulant abuse, 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 [facility] [id number] [place] [address] 22761- 5186 Mar, Type 2 diabetes mellitus with diabetic nephropathy E11.21 [place] [id number] [place] [address] 32073- 4096 Mar, Anxiety F41.9 ; Diabetes type 2, uncontrolled E11.65 and Tooth infection K04.7 [place] [id number] [place] [address] 63471- 5879 Mar, Type 2 diabetes mellitus with diabetic nephropathy E11.21 [place] [id number] [place] [address] 83630- 8040 Feb, [place] [id number] [place] [address] 32772- 2608 Jan, Type 2 diabetes mellitus with diabetic nephropathy E11.21 [place] [id number] [place] [address] 65332- 5172 Dec, Type 2 diabetes mellitus with diabetic nephropathy E11.21 [place] [id number] [place] [address] 19531- 2484 Nov, Mood disorder F39 and Type 2 diabetes mellitus with hyperglycemia E11.65 [facility] [id number] [place] [address] 27040- 7738 Oct, Mood disorder F39 and Type 2 diabetes mellitus with hyperglycemia E11.65 [facility] [id number] [place] [address] 78225- 5093 Sep, Type 2 diabetes mellitus with diabetic nephropathy E11.21 and Seizures R56.9 [facility] [id number] [place] [address] 23566- 1440 Sep, [place] [address] [place] [address] 3999 Sep, [facility] [address] [address] 8719 Sep, [facility] [id number] [place] [address] 62241- 3700 July, [facility] [id number] [place] [address] 89740- 5102 Jun, [facility] [id number] [place] [address] 58775- 7670 Jun, [facility] [id number] [place] [address] 52494- 9942 Jun, Uncontrolled type 2 diabetes mellitus without complication, without long-term 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 E11.65 [place] [id number] [place] [address] 26255- 9710 May, [facility] [id number] [place] [address] 35618- 2082 May, [facility] [id number] [place] [address] 27513- 4710 Mar, Generalized anxiety disorder F41.1 ; Major depression F32.9 ; Attention deficit hyperactivity disorder, combined type F90.2 ; Amphetamine and psychostimulant abuse, 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 and Cannabis abuse F12.10 [facility] [address] [address] 1697 Mar, Type 2 diabetes mellitus with diabetic nephropathy E11.21 ; Type 2 diabetes mellitus with hyperglycemia E11.65 and shelter 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.4 [facility] [id number] [place] [address] 15272- 7433 Feb, [facility] [id number] [place] [address] 18931- 8372 Jan, [facility] [id number] [place] [address] 95586- 3641 Dec, [facility] [address] [address] 1500 Dec, Generalized anxiety disorder F41.1 ; Attention deficit hyperactivity disorder, combined type F90.2 and Recurrent major depressive disorder, in partial remission F33.41 [place] [address] [address]- 0066 Dec, Diabetes type 2, uncontrolled E11.65 [place] [id number] [place] [address] 99622- 6399 Dec, [facility] [id number] [address]- 5063 Dec, [place] [id number] [place] [address] 02449- 7014 Dec, [place] [address] [address]- 2759 Nov, [place] [address] [place] [address] 69236- 5992 Oct, Noncompliance w/medication treatment due to intermit use of medication Z91.14 [place] [address] [address]- 8883 Oct, Noncompliance w/medication treatment due to intermit use of medication Z91.14 [place] [address] [address]- 1332 Oct, [place] [address] [address]- 4981 Oct, [place] [address] [address]- 4755 Oct, [place] [address] 5125 Sep, Diabetic polyneuropathy associated with type 2 diabetes mellitus E11.42 [facility] [address] [address]- 5600 Sep, [facility] [id number] [place] [address] 52484- 6206 Aug, Diabetes type 2, uncontrolled E11.65 and Diabetic polyneuropathy associated with type 2 diabetes mellitus E11.42 [facility] [id number] [place] [address] 96628- 4466 Aug, [facility] [id number] [place] [address] 44952- 1638 Aug, [facility] [id number] [place] [address] 81575- 6351 July, Generalized anxiety disorder F41.1 and Major depression F32.9 [facility] [id number] [place] [address] 46014- 5534 July, [facility] [id number] [place] [address] 54154- 1728 Jun, [facility] [id number] [place] [address] 39035- 9113 May, 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 ; Diabetes type 2, uncontrolled E11.65 ; Gastroenteritis K52.9 ; Malaise R53.81 and Dysrhythmia I49.9 [facility] [address] [place] [address] 82275- 6784 May, [facility] [id number] [place] [address] 71135- 7907 May, [facility] [id number] [place] [address] 39083- 7914 Apr, [facility] [id number] [place] [address] 01684- 2816 Apr, Type 2 diabetes mellitus with hyperglycemia E11.65 [facility] [id number] [place] [address] 21298- 3373 Apr, [facility] [id number] [place] [address] 18812- 5282 Apr, 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 ; Generalized anxiety disorder F41.1 ; Attention deficit hyperactivity disorder, combined type F90.2 and Major depression F32.9 [facility] [address] [address]- 6640 Mar, [facility] [address] [address]- 1476 Mar, [facility] [address] [address]- 7658 Mar, [facility] [id number] [place] [address] 00426- 2954 Mar, [facility] [id number] [place] [address] 37299- 2272 Mar, [facility] [id number] [place] [address] 17627- 1117 Feb, [facility] [address] [address]- 1916 Feb, [facility] [id number] [place] [address] 320075- 6016 Feb, [facility] [address] [address]- 0462 Jan, Diabetes type 2, uncontrolled E11.65 [facility] [address] [address]- 6834 Jan, [facility] [address] [address]- 3420 Jan, [facility] [id number] [address]- 6696 Jan, [facility] [address] [address]- 8336 Dec, [facility] [address] [address]- 3153 Dec, [facility] [address] [address]- 8359 Dec, [facility] [id number] [place] [address] 81012- 6124 Dec, Type 2 diabetes mellitus with diabetic nephropathy E11.21 [facility] [id number] [place] [address] 95821- 5264 Dec, [facility] [id number] [place] [address] 10835- 6259 Dec, [facility] [id number] [place] [address] 10365- 2622 Dec, [facility] [id number] [place] [address] 78283- 1850 Dec, Attention deficit hyperactivity disorder, combined type F90.2 ; Generalized anxiety disorder F41.1 and Major depression F32.9 [facility] [id number] [place] [address] 64532- 3024 Dec, Type 2 diabetes mellitus with diabetic nephropathy E11.21 and Type 2 diabetes mellitus with hyperglycemia E11.65 [facility] [id number] [place] [address] 14101- 1406 30 Nov, 2014 [facility] [address] [address]- 0282 17 Nov, 2014 [facility] [id number] [place] [address] 74233- 1387 16 Nov, 2014 [facility] [id number] [place] [address] 73425- 4926 Oct, [facility] [id number] [place] [address] 97925- 0449 Oct, [facility] [address] 3193 Oct, [facility] [id number] [place] [address] 95083- 2450 Sep, Hepatitis C 070.70 and URI, acute 465.9 [facility] [id number] [place] [address] 51290- 2343 Sep, [facility] [id number] [place] [address] 67261- 7103 Sep, [facility] [id number] [place] [address] 21589- 6768 Sep, [facility] [id number] [place] [address] 80907- 2110 Aug, [facility] [id number] [place] [address] 98245- 7873 Aug, [facility] [id number] [place] [address] 39430- 5469 Aug, [facility] [id number] [place] [address] 78596- 2520 Aug, [facility] [address] [place] [address] 63705- 6601 Aug, [facility] [id number] [place] [address] 78324- 1851 Aug, [facility] [address] [address]- 4288 Aug, Generalized anxiety disorder 300.02 ; Attention deficit disorder of childhood without mention of hyperactivity 314.00 and Major depressive disorder, recurrent episode, severe, specified as with psychotic behavior 296.34 [facility] [address] [address]- 6532 July, Diabetes with renal manifestations, type II or unspecified type, uncontrolled 250.42 [facility] [address] [place] [address] 20029- 8628 July, [facility] [id number] [place] [address] 51521- 4345 July, [facility] [address] [facility] [place] [facility] [id number] [place] [address]- 0566 July, [facility] [place] [facility] [address] [id number] [place] [address]- 7379 30 Jun, 2014 [facility] [place] [facility] [address] [id number] [place] [address]- 4446 14 Jun, 2014 [facility] [place] [facility] [address] [id number] [place] [address]- 4215 Jun, [facility] [place] [facility] [address] [id number] [place] [address]- 6673 30 May, 2014 [facility] [place] [facility] [address] [id number] [place] [address]- 9483 30 May, 2014 [facility] [place] [facility] [address] [id number] [place] [address]- 4372 30 May, 2014 [facility] [place] [facility] [address] [id number] [place] [address]- 7215 30 May, 2014 [facility] [place] [facility] [address] [id number] [place] [address]- 0487 May, [facility] [place] [facility] [address] [id number] [place] [address]- 4337 May, [facility] [place] [facility] [address] [id number] [place] [address]- 0910 May, [facility] [place] [facility] [address] [id number] [place] [address]- 4826 26 May, 2014 [facility] [place] [facility] [address] [id number] [place] [address]- 0565 18 May, 2014 [facility] [place] [facility] [address] [id number] [place] [address]- 5781 18 May, 2014 [facility] [place] [facility] [address] [id number] [place] [address]- 4146 May, [facility] [place] [facility] [address] [id number] [place] [address]- 6465 May, [facility] [place] [facility] [address] [id number] [place] [address]- 7161 May, [facility] [place] [facility] [address] [id number] [place] [address]- 5408 May, [facility] [place] [facility] [address] [id number] [place] [address]- 3060 Apr, [facility] [place] [facility] [address] [id number] [place] [address]- 0174 Apr, [facility] [place] [facility] [address] [id number] [place] [address]- 4458 Apr, [facility] [place] [facility] [address] [id number] [place] [address]- 1026 Apr, [facility] [place] [facility] [address] [id number] [place] [address]- 0248 Apr, [facility] [place] [facility] [address] [id number] [place] [address]- 9450 Apr, [facility] [place] [facility] [address] [id number] [place] [address]- 7996 Apr, [facility] [place] [facility] [address] [id number] [place] [address]- 9479 Apr, [facility] [place] [facility] [address] [id number] [place] [address]- 8963 Mar, [facility] [place] [facility] [address] [id number] [place] [address]- 0277 Mar, [facility] [place] [facility] [address] [id number] [place] [address]- 6661 Mar, [facility] [place] [facility] [address] [id number] [place] [address]- 9578 Mar, [facility] [place] [facility] [address] [id number] [place] [address]- 1529 Mar, [facility] [place] [facility] [address] [id number] [place] [address]- 3686 Mar, [facility] [address] [id number] [place] [address]- 3332 Mar, [facility] [place] [facility] [address] [id number] [place] [address]- 1307 Mar, [facility] [address] [id number] [place] [address]- 6909 Mar, [facility] [place] [facility] [address] [id number] [place] [address]- 7300 Mar, [facility] [address] [id number] [place] [address]- 1380 Mar, [facility] [place] [facility] [address] [id number] [place] [address]- 9235 Mar, [facility] [address] [id number] [place] [address]- 1253 Mar, [facility] [address] [id number] [place] [address]- 9984 Mar, [facility] [place] [facility] [address] [id number] [place] [address]- 0089 Mar, [facility] [address] [id number] [place] [address]- 2238 Mar, [facility] [place] [facility] [address] [id number] [place] [address]- 3873 Feb, [facility] [place] [facility] [address] [id number] [place] [address]- 5741 Feb, [facility] [place] [facility] [address] [id number] [place] [address]- 7200 Feb, [facility] [place] [facility] [address] [id number] [place] [address]- 4242 Feb, [facility] [place] [facility] [address] [id number] [place] [address]- 7963 Feb, [facility] [place] [facility] [address] [id number] [place] [address]- 5081 Feb, [facility] [place] [facility] [address] [id number] [place] [address]- 0463 Feb, [facility] [place] [facility] [address] [id number] [place] [address]- 1393 Feb, [facility] [place] [facility] [address] [id number] [place] [address]- 1376 Feb, [facility] [place] [facility] [address] [id number] [place] [address]- 8179 Feb, [facility] [place] [facility] [address] [id number] [place] [address]- 4999 Jan, [facility] [place] [facility] [address] [id number] [place] [address]- 5970 Jan, [facility] [place] [facility] [address] [id number] [place] [address]- 5583 Jan, [facility] [place] [facility] [address] [id number] [place] [address]- 2656 Jan, [facility] [place] [facility] [address] [id number] [place] [address]- 2110 Jan, [facility] [place] [facility] [address] [id number] [place] [address]- 0127 Jan, [facility] [place] [facility] [address] [id number] [place] [address]- 1908 Jan, [facility] [place] [facility] [address] [id number] [place] [address]- 3086 Jan, [facility] [place] [facility] [address] [id number] [place] [address]- 4642 Jan, [facility] [place] [facility] [address] [id number] [place] [address]- 5255 Dec, [facility] [place] [facility] [address] [id number] [place] [address]- 3096 Dec, [facility] [place] [facility] [address] [id number] [place] [address] Dec, [facility] [place] [facility] [address] [id number] [place] [address] Dec, [facility] [place] [facility] [address] [id number] [place] [address] Dec, [facility] [place] [facility] [address] [id number] [place] [address] Dec, [facility] [place] [facility] [address] [id number] [place] [address] Nov, 2013 [facility] [place] [facility] [address] [id number] [place] [address] Nov, 2013 [facility] [place] [facility] [address] [id number] [place] [address] 09 Nov, 2013 [facility] [place] [facility] [address] [id number] [place] [address] 09 Nov, 2013 [facility] [place] [facility] [address] [id number] [place] [address] 08 Nov, 2013 [facility] [place] [facility] [address] [id number] [place] [address]- [address] 08 Nov, 2013 [facility] [place] [facility] [address] [id number] [place] [address] 08 Nov, 2013 [facility] [place] [facility] [address] [id number] [place] [address] 08 Nov, 2013 [facility] [place] [facility] [address] [id number] [place] [address] Oct, [facility] [place] [facility] [address] [id number] [place] [address] Oct, [facility] [place] [facility] [address] [id number] [place] [address] Oct, [facility] [place] [facility] [address] [id number] [place] [address] Oct, [facility] [place] [facility] [address] [id number] [place] [address] Oct, [facility] [place] [facility] [address] [id number] [place] [address] Oct, [facility] [place] [facility] [address] [id number] [place] [address] Sep, [facility] [place] [facility] [address] [id number] [place] [address] Sep, [facility] [place] [facility] [address] [id number] [place] [address] Sep, [facility] [place] [facility] [address] [id number] [place] [address] Aug, [facility] [place] [facility] [address] [id number] [place] [address] Aug, [facility] [place] [facility] [address] [id number] [place] [address] July, [facility] [place] [facility] [address] [id number] [place] [address] July, [facility] [place] [facility] [address] [id number] [place] [address] Jun, [facility] [place] [facility] [address] [id number] [place] [address] Jun, [facility] [place] [facility] [address] [id number] [place] [address] Jun, [facility] [place] [facility] [address] [id number] [place] [address] Jun, [facility] [place] [facility] [address] [id number] [place] [address] Jun, [facility] [place] [facility] [address] [id number] [place] [address] Jun, [facility] [place] [facility] [address] [id number] [place] [address] Jun, [facility] [place] [facility] [address] [id number] [place] [address] Jun, [facility] [place] [facility] [address] [id number] [place] [address] Jun, [facility] [place] [facility] [address] [address] [id number] [place] [address] Jun, [facility] [place] [facility] [address] [id number] [place] [address] Jun, [facility] [place] [facility] [address] [id number] [place] [address] Jun, [facility] [place] [facility] [address] [id number] [place] [address] May, [facility] [place] [facility] [address] [id number] [place] [address] May, [facility] [place] [facility] [address] [id number] [place] [address] May, [facility] [place] [facility] [address] [id number] [place] [address] May, [facility] [place] [facility] [address] [id number] [place] [address] May, [facility] [place] [facility] [address] [id number] [place] [address] Apr, [facility] [place] [facility] [address] [id number] [place] [address] Apr, [facility] [place] [facility] [address] [id number] [place] [address] Apr, [facility] [place] [facility] [address] [id number] [place] [address] Apr, [facility] [place] [facility] [address] [id number] [place] [address] 17 Mar, 2013 [facility] [address] [id number] [place] [address] 17 Mar, 2013 [facility] [place] [facility] [address] [id number] [place] [address] Mar, [facility] [address] [id number] [place] [address] Mar, [facility] [place] [facility] [address] [id number] [place] [address] Feb, [facility] [address] [id number] [place] [address] Feb, [facility] [address] [id number] [place] [address] Feb, [facility] [address] [id number] [place] [address] Feb, [facility] [address] [id number] [place] [address] Jan, [facility] [place] [facility] [address] [id number] [place] [address] Jan, [facility] [address] [id number] [place] [address] Jan, [facility] [place] [facility] [address] [id number] [place] [address] Jan, [facility] [place] [facility] [address] [id number] [place] [address] Dec, [facility] [place] [facility] [address] [id number] [place] [address] Nov, [facility] [place] [facility] [address] [id number] [place] [address] Nov, [facility] [place] [facility] [address] [id number] [place] [address] Nov, [facility] [address] [id number] [place] [address] Nov, [facility] [place] [facility] [address] [id number] [place] [address] Nov, [facility] [place] [facility] [address] [id number] [place] [address] Oct, [facility] [place] [facility] [address] [id number] [place] [address]67 Oct, [facility] [place] [facility] [address] [id number] [place] [address] Sep, [facility] [place] [facility] [address] [id number] [place] [address] Sep, [facility] [place] [facility] [address] [id number] [place] [address] Sep, [facility] [place] [facility] [address] [id number] [place] [address] Sep, [facility] [place] [facility] [address] [id number] [place] [address] Sep, [facility] [place] [facility] [address] [id number] [place] [address]162 Aug, [facility] [place] [facility] [address] [id number] [place] [address] Aug, [facility] [place] [facility] [address] [id number] [place] [address] 04[address] Aug, [facility] [place] [facility] [address] [id number] [place] [address] Aug, [facility] [place] [facility] [address] [id number] [place] [address] July, [facility] [place] [facility] [address] [id number] [place] [address] July, [facility] [place] [facility] [address] [id number] [place] [address] 2546 July, [facility] [address] [id number] [place] [address] Jun, [facility] [place] [facility] [address] [id number] [place] [address] 2546 May, [facility] [address] [id number] [place] [address]46 May, [facility] [place] [facility] [address] [id number] [place] [address] 2546 Apr, [facility] [place] [facility] [address] [id number] [place] [address] Mar, [facility] [place] [facility] [address] [id number] [place] [address]- 2546 Mar, [facility] [address] [id number] [place] [address]- [address] Mar, [facility] [place] [facility] [address] [id number] [place] [address]- [address]84 Mar, [facility] [address] [id number] [place] [address]- 6693 Feb, [facility] [address] [id number] [place] [address]- [address] Feb, [facility] [place] [facility] [address] [id number] [place] [address]- 2546 Feb, [facility] [place] [facility] [address] [id number] [place] [address]- [address] Feb, [facility] [place] [facility] [address] [id number] [place] [address]- [address]46 Jan, [facility] [place] [facility] [address] [id number] [place] [address]- 2546 Jan, [facility] [place] [facility] [address] [id number] [place] [address] Sep, [facility] [place] [facility] [address] [id number] [place] [address]- [address]67 Sep, [facility] [place] [facility] [address] [id number] [place] [address] 0432 Aug, [facility] [place] [facility] [address] [id number] [place] [address]206 Aug, [facility] [place] [facility] [address] [id number] [place] [address]- 1786 Jun, [facility] [place] [facility] [address] [id number] [place] [address]- 0725 May, [facility] [place] [facility] [address] [id number] [place] [address]- 1156 May, [facility] [place] [facility] [address] [id number] [place] [address]- 8660 Mar, [facility] [place] [facility] [address] [id number] [place] [address]- [address] Mar, [facility] [place] [facility] [address] [id number] [place] [address]- 2445 Feb, [facility] [place] [facility] [address] [id number] [place] [address]- 9127 Feb, [facility] [place] [facility] [address] [id number] [place] [address]- 9255 Feb, [facility] [place] [facility] [address] [id number] [place] [address]- 1081 14 Dec, 2010 [facility] [place] [facility] [address] [id number] [place] [address]- [address] 15 Aug, 2010 [facility] [place] [facility] [address] [id number] [place] [address]- [address]26 18 May, 2010 [facility] [place] [facility] [address] [id number] [place] [address]- 6187 10 Mar, 2010 [facility] [place] [facility] [address] [id number] [place] [address] Oct, [facility] [address] [facility] [place] [id number] [place] [address] Sep, [facility] [address] [facility] [place] [id number] [place] [address]- [address] Jun, IMMUNIZATIONS No Known Immunizations SOCIAL HISTORY Never Assessed REASON FOR VISIT Controlled Refill Request PLAN OF CARE VITAL SIGNS MEDICATIONS Medication [...]
--- OUTSIDE RECORDS SUMMARY | 2018-02-25 23:44 | XMS REPORT ---
Author Author MELISSA FERNANDEZ Organization [facility] Address [address] [place] [address] Care Team Providers Care Cheese Processor Name Role Phone MELISSA FERNANDEZ Unavailable PROBLEMS Type Condition ICD9-CM Code HWG27-AS Code Onset Dates Condition Status SNOMED Code Problem Recurrent major depressive disorder, in partial remission F33.41 Active 25461676 Problem Cannabis abuse F12.10 Active 58805720 Problem Attention deficit hyperactivity disorder, combined type F90.2 Active 36199160 Problem Type 2 diabetes mellitus with hyperglycemia E11.65 Active 121904224 Problem Uncontrolled type 2 diabetes mellitus without complication, without long-term 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 E11.65 Active 190310014 Problem 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 Active 315078054 Problem Major depression F32.9 Active 485268255 Problem Type 2 diabetes mellitus with diabetic nephropathy E11.21 Active 533951921 Problem Type 2 diabetes mellitus with hyperglycemia E11.65 Active 684041833 Problem Diabetes type 2, uncontrolled E11.65 Active 137171281 Problem Mood disorder F39 Active 59904842 Problem Attention deficit hyperactivity disorder (ADHD), predominantly inattentive type F90.0 Active 48474958 Problem Noncompliance w/medication treatment due to intermit use of medication Z91.14 Active 730274906 Problem 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.899 Active 073522250 Problem Anxiety F41.9 Active 88233347 Problem Generalized anxiety disorder F41.1 Active 56673574 Problem Noncompliance of patient with dietary regimen Z91.11 Active 913139456 Problem Major depression, chronic F32.9 Active 420649508 ALLERGIES No Information ENCOUNTERS Encounter Location Date Diagnosis [facility] [id number] [address] Jun, [facility] [id number] [address] Jun, [facility] [address] [address] Mar, Type 2 diabetes mellitus with diabetic nephropathy E11.21 [facility] [address] [address] Mar, Anxiety F41.9 ; Diabetes type 2, uncontrolled E11.65 and Tooth infection K04.7 [facility] [address] [address] Mar, Type 2 diabetes mellitus with diabetic nephropathy E11.21 [facility] [address] [address] Feb, [facility] [id number] [place] [address], [place] [address] Jan, Type 2 diabetes mellitus with diabetic nephropathy E11.21 [facility] [address] [address] 1518 Dec, Type 2 diabetes mellitus with diabetic nephropathy E11.21 [facility] [address] [address] Nov, Mood disorder F39 and Type 2 diabetes mellitus with hyperglycemia E11.65 [facility] [address] [address]- 8766 Oct, Mood disorder F39 and Type 2 diabetes mellitus with hyperglycemia E11.65 [facility] [address] [address] 160[address] Sep, Type 2 diabetes mellitus with diabetic nephropathy E11.21 and Seizures R56.9 [facility] [address] [address]- 0873 Sep, [facility] [address] [address]- 2906 Sep, [facility] [address] [address] 1706 Sep, [facility] [address] [address] 7983 July, [facility] [address] [address] Jun, [facility] [address] [address] Jun, [facility] [address] [address] 3[address] Jun, Uncontrolled type 2 diabetes mellitus without complication, without long-term 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 E11.65 [facility] [address] [address] 0[address] May, [facility] [id number] [place] [address]99- 6767 May, [address] [address] [address] Mar, Generalized anxiety disorder F41.1 ; Major depression F32.9 ; Attention deficit hyperactivity disorder, combined type F90.2 ; Amphetamine and psychostimulant abuse, 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 and Cannabis abuse F12.10 [place] [facility] [address] [address]25 Mar, Type 2 diabetes mellitus with diabetic nephropathy E11.21 ; Type 2 diabetes mellitus with hyperglycemia E11.65 and senior living 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.4 [facility] [address] [address] 37[address] Feb, [facility] [address] [address] 5127 Jan, [facility] [address] [address]- 4147 Dec, [facility] [facility] [id number] [place] [address] 26049- 6149 Dec, Generalized anxiety disorder F41.1 ; Attention deficit hyperactivity disorder, combined type F90.2 and Recurrent major depressive disorder, in partial remission F33.41 [facility] [id number] [address]- 4161 Dec, Diabetes type 2, uncontrolled E11.65 [facility] [address] [address]- 1319 Dec, [facility] [address] [address] Dec, [facility] [address] [address] Dec, [facility] [address] [address] 3237 Nov, [facility] [id number] [place] [address] 8[address]- 8278 Oct, Noncompliance w/medication treatment due to intermit use of medication Z91.14 [facility] [address] [address] Oct, Noncompliance w/medication treatment due to intermit use of medication Z91.14 [facility] [address], [place] [address]- 8609 Oct, [facility] [address] [address]- 6824 Oct, [facility] [address] [address]- 9735 Oct, [facility] [address] [address]- 2596 Sep, Diabetic polyneuropathy associated with type 2 diabetes mellitus E11.42 [facility] [address] [address]- 7[address] Sep, [facility] [address] [address] Aug, Diabetes type 2, uncontrolled E11.65 and Diabetic polyneuropathy associated with type 2 diabetes mellitus E11.42 [facility] [address] [place] [address] 47066- 9400 Aug, [facility] [id number] [place] [address] 44[address]- 9863 Aug, [place] [id number] [place] [address] 40587- 5430 July, Generalized anxiety disorder F41.1 and Major depression F32.9 [place] [address] [address] July, [facility] [id number] [place] [address] 24[address]- 9927 Jun, [place] [address] [address]- [address] May, senior living 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.899 ; Diabetes type 2, uncontrolled E11.65 ; Gastroenteritis K52.9 ; Malaise R53.81 and Dysrhythmia I49.9 [place] [id number] [place] [address] 59892- 0329 May, [place] [id number] [place] [address] 36127- 1946 May, [place] [id number] [place] [address] 55[address]- 2014 Apr, [place] [id number] [place] [address] 72086- 2685 Apr, Type 2 diabetes mellitus with hyperglycemia E11.65 [facility] [id number] [place] [address] 08609- 1076 Apr, [place] [id number] [place] [address] 73041- 7844 Apr, 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.899 ; Generalized anxiety disorder F41.1 ; Attention deficit hyperactivity disorder, combined type F90.2 and Major depression F32.9 [facility] [facility] [id number] [place] [address] 45773- 9309 Mar, [facility] [address] [facility] [id number] [address] 6[address] Mar, [facility] [address] [facility] [id number] [place] [address]- 8308 Mar, [facility] [address] [facility] [id number] [place] [address]- 3367 Mar, [facility] [address] [facility] [id number] [place] [address] 56271- 0250 Mar, [facility] [address] [facility] [id number] [place] [address]- 3806 Feb, [facility] [address] [facility] [id number] [place] [address] 21366- 4100 Feb, [facility] [address] [address]- 3569 Feb, [facility] [address] [address]- 8089 Jan, Diabetes type 2, uncontrolled E11.65 [facility] [address], [place] [address]- 6908 Jan, [facility] [address], [place] [address]- 9683 Jan, [facility] [address] [address]- 2343 Jan, [facility] [address] [address]- 1455 Dec, [facility] [address] [address]- 6162 Dec, [facility] [address] [facility] [id number], [place] [address]- 2450 Dec, [facility] [id number] [address]- 1295 Dec, Type 2 diabetes mellitus with diabetic nephropathy E11.21 [facility] [place] [facility] [id number] [place] [address] 08623- 5196 Dec, [facility] [id number] [place] [address] 95754- 3308 Dec, [facility] [id number] [place] [address] 75676- 8207 Dec, [facility] [id number] [place] [address] 11029- 9313 Dec, Attention deficit hyperactivity disorder, combined type F90.2 ; Generalized anxiety disorder F41.1 and Major depression F32.9 [facility] [id number] [place] [address] 52199- 2430 Dec, Type 2 diabetes mellitus with diabetic nephropathy E11.21 and Type 2 diabetes mellitus with hyperglycemia E11.65 [facility] [id number] [place] [address] 22764- 4051 30 Nov, 2014 [facility] [id number] [place] [address] 52338- 4086 17 Nov, 2014 [facility] [id number] [place] [address] 49064- 9286 16 Nov, 2014 [facility] [id number] [place] [address] 66083- 7881 Oct, [facility] [id number] [place] [address] 61608- 7666 Oct, [facility] [id number] [place] [address] 22708- 7291 Oct, [facility] [id number] [place] [address] 01161- 1936 Sep, Hepatitis C 070.70 and URI, acute 465.9 [facility] [id number] [place] [address] 90295- 9480 Sep, [facility] [id number] [place] [address] 15364- 2546 Sep, [facility] [address] 7314 Sep, [facility] [address] [address]- 4358 Aug, [facility] [address] 9836 Aug, [facility] [id number] [place] [address] 49770- 1123 Aug, [facility] [id number] [place] [address] 517334- 0789 Aug, [facility] [id number] [place] [address] 640438- 3555 Aug, [facility] [id number] [place] [address] 956384- 3128 Aug, [facility] [address] [address]- 5109 Aug, Generalized anxiety disorder 300.02 ; Attention deficit disorder of childhood without mention of hyperactivity 314.00 and Major depressive disorder, recurrent episode, severe, specified as with psychotic behavior 296.34 [facility] [address], [place] [address]- 1541 July, Diabetes with renal manifestations, type II or unspecified type, uncontrolled 250.42 [facility] [address] [address]- 4537 July, [facility] [address] 2497 July, [facility] [id number]- 2195 July, [facility] [id number] 8320 Jun, [facility] [id number] [address]- 5347 14 Jun, 2014 [facility] [place] [facility] [address] [id number] [place] [address]- 7492 13 Jun, 2014 [facility] [place] [facility] [address] [id number] [place] [address]- 9436 30 May, 2014 [facility] [place] [facility] [address] [id number] [place] [address]- 8943 30 May, 2014 [facility] [place] [facility] [address] [id number] [place] [address]- 5644 30 May, 2014 [facility] [place] [facility] [address] [id number] [place] [address]- 7296 30 May, 2014 [facility] [place] [facility] [address] [id number] [place] [address]- 1263 May, [facility] [place] [facility] [address] [id number] [place] [address]- 7928 May, [facility] [place] [facility] [address] [id number] [place] [address]- 9223 May, [facility] [place] [facility] [address] [id number] [place] [address]- 6417 26 May, 2014 [facility] [place] [facility] [address] [id number] [place] [address]- 9748 18 May, 2014 [facility] [place] [facility] [address] [id number] [place] [address]- 5462 18 May, 2014 [facility] [place] [facility] [address] [id number] [place] [address]- 6682 13 May, 2014 [facility] [place] [facility] [address] [id number] [place] [address]- 5813 13 May, 2014 [facility] [place] [facility] [address] [id number] [place] 6123 May, [facility] [place] [facility] [address] [id number] [place] [address]- 6522 11 May, 2014 [facility] [place] [facility] [address] [id number] [place] [address]- 8081 Apr, 2014 [facility] [place] [facility] [address] [id number] [place] [address]- 7306 Apr, 2014 [facility] [place] [facility] [address] [id number] [place] [address] 2546 Apr, 2014 [facility] [place] [facility] [address] [id number] [place] [address]- 8746 Apr, 2014 [facility] [place] [facility] [address] [id number] [place] [address]- 2543 Apr, 2014 [facility] [place] [facility] [address] [id number] [place] [address]- 7170 Apr, 2014 [facility] [place] [facility] [address] [id number] [place] [address]- 8924 Apr, [facility] [place] [facility] [address] [id number] [place] [address]- 0398 Apr, [facility] [place] [facility] [address] [id number] [place] [address]- 4069 Mar, [facility] [place] [facility] [address] [id number] [place] [address]- 8312 Mar, [facility] [place] [facility] [address] [id number] [place] [address]- 5213 Mar, [facility] [place] [facility] [address] [id number], [place] [address]- 8631 Mar, [facility] [place] [facility] [address] [id number] [place] [address]- 4361 Mar, [facility] [place] [facility] [address] [id number] [place] [address]- 6443 Mar, [facility] [place] [facility] [address] [id number] [place] [address]- 5137 Mar, [facility] [place] [facility] [address] [id number] [place] [address]- 7111 Mar, [facility] [place] [facility] [address] [id number] [place] [address]- 7925 Mar, [facility] [place] [facility] [address] [id number] [place] [address]- 3589 Mar, [facility] [place] [facility] [address] [id number] [place] [address]- 2390 Mar, [facility] [place] [facility] [address] [id number] [place] [address]- 5855 Mar, [facility] [place] [facility] [address] [id number] [place] [address]- 2047 Mar, [facility] [place] [facility] [address] [id number] [place] [address]- 4145 Mar, [facility] [place] [facility] [address] [id number] [place] [address]- 7604 Mar, [facility] [place] [facility] [address] [id number] [place] [address]- 5004 Mar, [facility] [place] [facility] [address] [id number] [place] [address]- 7382 Feb, [facility] [place] [facility] [address] [id number] [place] [address]- 7844 Feb, [facility] [place] [facility] [address] [id number] [place] [address]- 4076 Feb, [facility] [place] [facility] [address] [id number] [place] [address]- 4983 Feb, [facility] [place] [facility] [address] [id number] [place] [address]- 1945 Feb, [facility] [place] [facility] [address] [id number] [place] [address]- 5773 Feb, [facility] [place] [facility] [address] [id number] [place] [address]- 3492 15 Feb, 2014 [facility] [place] [facility] [address] [id number] [place] [address]- 2409 15 Feb, 2014 [facility] [place] [facility] [address] [id number] [place] [address]- 0428 Feb, [facility] [place] [facility] [address] [id number] [place] [address]- 8406 Feb, [facility] [place] [facility] [address] [id number] [place] [address]- 8519 Jan, [facility] [place] [facility] [address] [id number] [place] [address]- 6479 Jan, [facility] [place] [facility] [address] [id number] [place] [address]- 4305 Jan, [facility] [place] [facility] [address] [id number] [place] [address]- 7522 Jan, [facility] [place] [facility] [address] [id number] [place] [address]- 2615 Jan, [facility] [place] [facility] [address] [id number] [place] [address]- 0301 Jan, [facility] [place] [facility] [address] [id number] [place] [address]- 2277 Jan, [facility] [place] [facility] [address] [facility] [id number] [place] [address]- 6939 Jan, [facility] [place] [facility] [address] [id number] [place] [address]- 9987 Jan, [facility] [place] [facility] [address] [id number] [place] [address]- 4152 Dec, [facility] [place] [facility] [address] [id number] [place] [address]- 2678 Dec, [facility] [place] [facility] [address] [id number] [place] [address]- 8829 Dec, [facility] [place] [facility] [address] [id number] [place] [address]- 7310 Dec, [facility] [place] [facility] [address] [id number] [place] [address]- 8876 Dec, [facility] [place] [facility] [address] [id number] [place] [address]- 3025 Dec, [facility] [place] [facility] [address] [id number] [place] [address]- 7476 Nov, [facility] [place] [facility] [address] [id number] [place] [address]- 3341 Nov, 2013 [facility] [place] [facility] [address] [id number] [place] [address]- 8461 Nov, [facility] [place] [facility] [address] [id number] [place] [address]- 1565 Nov, [facility] [place] [facility] [address] [id number] [place] [address]- 2693 Nov, [facility] [place] [facility] [address] [id number] [place] [address]- 2234 Nov, [facility] [place] [facility] [address] [id number] [place] [address]- 0462 Nov, [facility] [place] [facility] [address] [id number] [place] [address]- 6286 Nov, [facility] [place] [facility] [address] [id number] [place] [address]- 0450 Oct, [facility] [place] [facility] [address] [id number] [address]- 9503 Oct, [facility] [place] [facility] [address] [id number] [place] [address] Oct, [facility] [place] [facility] [address] [id number] [place] [address] Oct, [facility] [place] [facility] [address] [id number] [place] [address] Oct, [facility] [place] [facility] [address] [id number] [place] [address] Oct, [facility] [place] [facility] [address] [id number] [place] [address] Sep, [facility] [place] [facility] [address] [id number] [place] [address] Sep, [facility] [place] [facility] [address] [id number] [place] [address] Sep, [facility] [place] [facility] [address] [id number] [place] [address] Aug, [facility] [place] [facility] [address] [id number] [place] [address] Aug, [facility] [place] [facility] [address] [id number] [place] [address] July, [facility] [place] [facility] [address] [id number] [place] [address] July, [facility] [place] [facility] [address] [id number] [place] [address] Jun, [facility] [place] [facility] [address] [id number] [place] [address]- [address] Jun, [facility] [place] [facility] [address] [id number] [place] [address]- [address] Jun, [facility] [place] [facility] [address] [id number] [place] [address]- [address] Jun, [facility] [place] [facility] [address] [id number] [place] [address]- [address] Jun, [facility] [place] [facility] [address] [id number] [place] [address] Jun, [facility] [place] [facility] [address] [id number] [place] [address]- [address] Jun, [facility] [place] [facility] [address] [id number] [place] [address]- [address] Jun, [facility] [place] [facility] [address] [id number] [place] [address]- [address] Jun, [facility] [place] [facility] [address] [id number] [place] [address]- [address] Jun, [facility] [place] [facility] [address] [id number] [place] [address]- [address] Jun, [facility] [place] [facility] [address] [id number] [place] [address]- [address] Jun, [facility] [place] [facility] [address] [id number] [place] [address]- [address] May, [facility] [place] [facility] [address] [id number] [place] [address] May, [facility] [place] [facility] [address] [id number] [place] [address] May, [facility] [place] [facility] [address] [id number] [place] [address]- [address] May, [facility] [place] [facility] [address] [id number] [place] [address]- [address] May, [facility] [place] [facility] [address] [id number] [place] [address] Apr, [facility] [place] [facility] [address] [id number] [place] [address] Apr, [facility] [place] [facility] [address] [id number] [place] [address]- [address] Apr, [facility] [place] [facility] [address] [id number] [place] [address] Apr, [facility] [place] [facility] [address] [id number] [place] [address] Mar, [facility] [place] [facility] [address] [id number] [place] [address] Mar, [facility] [place] [facility] [address] [id number] [address] Mar, [facility] [facility] [address] [id number] [place] [address] Mar, [facility] [place] [facility] [address] [id number] [place] [address] Feb, [facility] [place] [facility] [address] [id number] [place] [address] Feb, [facility] [place] [facility] [address] [id number] [place] [address] Feb, [facility] [place] [facility] [address] [id number] [place] [address] Feb, [facility] [place] [facility] [address] [id number] [place] [address] Jan, [facility] [place] [facility] [address] [id number] [place] [address] Jan, [facility] [place] [facility] [address] [id number] [place] [address] Jan, [facility] [place] [facility] [address] [id number] [place] [address] Jan, [facility] [place] [facility] [address] [id number] [place] [address] 08 Dec, 2012 [facility] [place] [facility] [address] [id number] [address] 27 Nov, 2012 [facility] [place] [facility] [address] [id number], [place] [address] 23 Nov, 2012 [facility] [place] [facility] [address] [id number] [place] [address] 23 Nov, 2012 [facility] [place] [facility] [address] [id number] [place] [address] 10 Nov, 2012 [facility] [place] [facility] [address] [id number] [place] [address] 09 Nov, 2012 [facility] [place] [facility] [address] [id number] [place] [address] Oct, [facility] [address] [id number] [place] [address] Oct, [facility] [address] [id number] [place] [address]46 Sep, [facility] [address] [id number] [place] [address] Sep, [facility] [address] [id number] [place] [address] Sep, [facility] [address] [id number] [place] [address] Sep, [facility] [address] [id number] [place] [address] Sep, [facility] [address] [id number] [place] [address] Aug, [facility] [address] [id number] [place] [address]185 Aug, [facility] [address] [id number] [place] [address] Aug, [facility] [address] [id number] [place] [address] 4089 Aug, [facility] [address] [id number] [place] [address] July, [facility] [address] [id number] [place] [address] July, [facility] [address] [id number] [place] [address] July, [facility] [address] [id number] [place] [address] Jun, [facility] [address] [id number] [place] [address]98 May, [facility] [address] [id number] [place] [address] 2785 May, [facility] [place] [facility] [address] [id number] [place] [address] 3315 Apr, [facility] [place] [facility] [address] [id number] [place] [address] Mar, [facility] [place] [facility] [address] [id number] [place] [address] Mar, [facility] [address] [id number] [place] [address] Mar, [facility] [place] [facility] [address] [id number] [place] [address] Mar, [facility] [place] [facility] [address] [id number] [place] [address] 8345 Feb, [facility] [place] [facility] [address] [id number] [place] [address]- 40[address] Feb, [facility] [place] [facility] [address] [id number] [place] [address] 4748 Feb, [facility] [place] [facility] [address] [id number] [place] [address] 8447 Feb, [facility] [place] [facility] [address] [id number] [place] [address] Jan, [facility] [place] [facility] [address] [id number], [place] [address] Jan, [facility] [place] [facility] [address] [id number] [place] [address]- 6974 Sep, [facility] [place] [facility] [address] [id number], [place] [address] Sep, [facility] [place] [facility] [address] [id number] [place] [address]- [address]349 Aug, [facility] [place] [facility] [id number] [address] 20 Aug, 2011 [facility] [address] [facility] [id number] [place] [address] Jun, [facility] [address] [facility] [id number] [place] [address]- 7916 30 May, 2011 [facility] [address] [facility] [id number] [place] [address]- [address] May, [facility] [address] [facility] [id number] [place] [address] 254 Mar, [facility] [address] [facility] [id number] [place] [address] 0925 Mar, [facility] [address] [facility] [id number] [place] [address] 97[address] Feb, [facility] [id number] [address] Feb, [facility] [address] [facility] [id number] [place] [address] 3985 Feb, [facility] [id number] [address] 14 Dec, 2010 [facility] [id number] [address] Aug, [facility] [address] [id number] [address] 18 May, 2010 [facility] [address] [facility] [id number], [place] [address] 2543 10 Mar, 2010 [facility] [address] [facility] [id number], [place] [address] 16 Oct, 2009 [facility] [address] [facility] [id number] [place] [address] 2546 14 Sep, 2009 [facility] [address] [id number] [address] 16 Jun, 2009 IMMUNIZATIONS No Known Immunizations SOCIAL HISTORY Never Assessed REASON FOR VISIT med refill PLAN OF CARE VITAL SIGNS MEDICATIONS Unknown [...]
--- OUTSIDE RECORDS SUMMARY | 2018-02-25 23:46 | XMS REPORT ---
Author Author MELISSA FERNANDEZ Organization [facility] Address [address] [place] [address] Care Team Providers Care Land Surveyor Assistant Name Role Phone MELISSA FERNANDEZ Unavailable PROBLEMS Type Condition ICD9-CM Code NVD41-UG Code Onset Dates Condition Status SNOMED Code Problem Recurrent major depressive disorder, in partial remission F33.41 Active 92962567 Problem Cannabis abuse F12.10 Active 15387383 Problem Attention deficit hyperactivity disorder, combined type F90.2 Active 00110961 Problem Type 2 diabetes mellitus with hyperglycemia E11.65 Active 873528787 Problem Uncontrolled type 2 diabetes mellitus without complication, without long-term 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 E11.65 Active 177972803 Problem body finisher 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.4 Active 939992571 Problem Major depression F32.9 Active 124329878 Problem Type 2 diabetes mellitus with diabetic nephropathy E11.21 Active 369493283 Problem Type 2 diabetes mellitus with hyperglycemia E11.65 Active 079319286 Problem Diabetes type 2, uncontrolled E11.65 Active 840669587 Problem Mood disorder F39 Active 82353614 Problem Attention deficit hyperactivity disorder (ADHD), predominantly inattentive type F90.0 Active 69462184 Problem Noncompliance w/medication treatment due to intermit use of medication Z91.14 Active 070652693 Problem body finisher 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.899 Active 367266533 Problem Anxiety F41.9 Active 19888276 Problem Generalized anxiety disorder F41.1 Active 68580358 Problem Noncompliance of patient with dietary regimen Z91.11 Active 349023678 Problem Major depression, chronic F32.9 Active 335113886 ALLERGIES No Information ENCOUNTERS Encounter Location Date Diagnosis [facility] [address] [facility] [id number], [place] [address] July, [facility] [address] [facility] [id number], [place] [address] Mar, Type 2 diabetes mellitus with diabetic nephropathy E11.21 [facility] [address], [place] [address] Mar, Anxiety F41.9 ; Diabetes type 2, uncontrolled E11.65 and Tooth infection K04.7 [facility] [address], [place] [address] Mar, Type 2 diabetes mellitus with diabetic nephropathy E11.21 [facility] [id number] [address] Feb, [facility] [id number] [place] [address] 10411- 4691 Jan, Type 2 diabetes mellitus with diabetic nephropathy E11.21 [facility] [id number] [place] [address] 21823- 9904 Dec, Type 2 diabetes mellitus with diabetic nephropathy E11.21 [facility] [id number] [address] 245[address] Nov, Mood disorder F39 and Type 2 diabetes mellitus with hyperglycemia E11.65 [facility] [address], [place] [address] Oct, Mood disorder F39 and Type 2 diabetes mellitus with hyperglycemia E11.65 [facility] [address], [place] [address] 8[address] Sep, Type 2 diabetes mellitus with diabetic nephropathy E11.21 and Seizures R56.9 [facility] [address], [place] [address] 9791 Sep, [facility] [address], [place] [address] 0551 Sep, [facility] [id number], [place] [address] 8608 Sep, [facility] [address], [place] [address] 8717 July, [facility] [address], [place] [address] 0837 Jun, [facility] [address], [place] [address] Jun, [place] [id number] [place] [address] 30363- 9878 Jun, Uncontrolled type 2 diabetes mellitus without complication, without long-term 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 E11.65 [place] [id number] [place] [address] 53145- 2843 May, [place] [id number] [place] [address] 13019- 0017 May, [place] [id number] [place] [address] 15709- 8494 Mar, Generalized anxiety disorder F41.1 ; Major depression F32.9 ; Attention deficit hyperactivity disorder, combined type F90.2 ; Amphetamine and psychostimulant abuse, 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 and Cannabis abuse F12.10 [place] [id number] [place] [address] 73574- 3165 Mar, Type 2 diabetes mellitus with diabetic nephropathy E11.21 ; Type 2 diabetes mellitus with hyperglycemia E11.65 and body finisher 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.4 [place] [address], [place] [address] 7198 Feb, [place] [address], [place] [address] 7696 Jan, [place] [id number] [place] [address] 08462- 0906 Dec, [place] [address], [place] [address] 7159 Dec, Generalized anxiety disorder F41.1 ; Attention deficit hyperactivity disorder, combined type F90.2 and Recurrent major depressive disorder, in partial remission F33.41 [place] [address], [place] [address] 0257 Dec, Diabetes type 2, uncontrolled E11.65 [place] [address] [facility] [id number] [place] [address]- 7182 Dec, [facility] [address] [address] 7384 Dec, [facility] [address] [facility] [id number], [place] [address] 2540 Dec, [facility] [address], [place] [address] 1798 Nov, [facility] [address] [facility] [id number], [place] [address] 7236 Oct, Noncompliance w/medication treatment due to intermit use of medication Z91.14 [facility] [address], [place] [address] 2933 Oct, Noncompliance w/medication treatment due to intermit use of medication Z91.14 [facility] [address], [place] [address] 4831 Oct, [facility] [address], [place] [address]- 6471 Oct, [facility] [address], [place] [address] 2698 Oct, [facility] [id number], [place] [address] 3448 Sep, Diabetic polyneuropathy associated with type 2 diabetes mellitus E11.42 [facility] [address], [place] [address]- 6633 Sep, [facility] [address], [place] [address] 2689 Aug, Diabetes type 2, uncontrolled E11.65 and Diabetic polyneuropathy associated with type 2 diabetes mellitus E11.42 [facility] [address], [place] [address]- 7394 Aug, [facility] [address], [place] [address]- 7641 Aug, [facility] [id number] [place] [address] 14533- 6910 July, Generalized anxiety disorder F41.1 and Major depression F32.9 [facility] [address], [place] [address]- 7306 July, [facility] [id number] [place] [address] 81350- 1954 Jun, [facility] [id number] [place] [address] 55734- 1201 May, body finisher 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.899 ; Diabetes type 2, uncontrolled E11.65 ; Gastroenteritis K52.9 ; Malaise R53.81 and Dysrhythmia I49.9 [place] [id number], [place] [address]- 1278 May, [place] [id number] [place] [address] 01785- 5231 May, [facility] [id number] [place] [address] 73982- 7783 Apr, [place] [id number] [place] [address] 68687- 3767 Apr, Type 2 diabetes mellitus with hyperglycemia E11.65 [place] [address], [place] [address] 1943 Apr, [place] [address], [place] [address]- 3533 Apr, USP 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.899 ; Generalized anxiety disorder F41.1 ; Attention deficit hyperactivity disorder, combined type F90.2 and Major depression F32.9 [facility] [address], [place] [address]- 4677 Mar, [facility] [id number] [place] [address] 73187- 7581 Mar, [facility] [address] [facility] [id number] [place] [address]- 3713 Mar, [facility] [address] [facility] [id number] [place] [address]- 6320 Mar, [facility] [address] [facility] [id number] [place] [address]- 6097 Mar, [facility] [address] [facility] [id number] [place] [address], [place] [address]- 4440 Feb, [facility] [address] [facility] [id number] [place] [address]- 0108 Feb, [facility] [address] [facility] [id number] [place] [address] 27986- 6281 Feb, [facility] [address] [address]- 4765 Jan, Diabetes type 2, uncontrolled E11.65 [facility] [address] [address]- 3039 Jan, [facility] [id number] [place] [address] 56488- 8243 Jan, [facility] [address], [place] [address]- 1775 Jan, [facility] [address], [place] [address]- 2967 Dec, [facility] [id number], [place] [address]- 1292 Dec, [facility] [address], [place] [address]- 1027 Dec, [facility] [address], [place] [address]- 5374 Dec, Type 2 diabetes mellitus with diabetic nephropathy E11.21 [facility] [address], [place] [address]- 3178 Dec, [facility] [id number] [place] [address] 32457- 7593 Dec, [facility] [id number] [place] [address] 13999- 9386 Dec, [facility] [id number] [place] [address] 64042- 9644 Dec, Attention deficit hyperactivity disorder, combined type F90.2 ; Generalized anxiety disorder F41.1 and Major depression F32.9 [facility] [id number] [place] [address] 86792- 0161 Dec, Type 2 diabetes mellitus with diabetic nephropathy E11.21 and Type 2 diabetes mellitus with hyperglycemia E11.65 [facility] [id number] [place] [address] 24408- 6699 30 Nov, 2014 [facility] [id number] [place] [address] 27295- 7245 17 Nov, 2014 [facility] [id number] [place] [address] 86869- 1090 16 Nov, 2014 [facility] [id number] [place] [address] 63868- 1571 Oct, [facility] [id number] [place] [address] 17303- 7006 Oct, [facility] [id number] [place] [address] 64701- 8560 Oct, [facility] [id number] [place] [address] 26114- 9051 Sep, Hepatitis C 070.70 and URI, acute 465.9 [facility] [id number] [place] [address] 20103- 1874 Sep, [facility] [id number] [place] [address] 555854- 7681 Sep, [facility] [id number] [place] [address] 97415- 2410 Sep, [facility] [address], [place] [address]- 5689 Aug, [facility] [address] 7823 Aug, [facility] [address], [place] [address]- 3502 Aug, [facility] [id number] [place] [address] 796275- 1557 Aug, [facility] [id number] [place] [address] 00457- 9668 Aug, [facility] [id number] [place] [address] 35616- 2153 Aug, [facility] [id number] [place] [address] 73499- 0156 Aug, Generalized anxiety disorder 300.02 ; Attention deficit disorder of childhood without mention of hyperactivity 314.00 and Major depressive disorder, recurrent episode, severe, specified as with psychotic behavior 296.34 [facility] [id number] [place] [address] 72022- 8246 July, Diabetes with renal manifestations, type II or unspecified type, uncontrolled 250.42 [facility] [address], [place] [address]- 7536 July, [facility] [address], [place] [address]- 8555 July, [facility] [address], [place] [address]- 8235 July, [facility] [id number], [place] [address]- 3398 Jun, [facility] [address] 0005 Jun, [facility] [id number] [place] [address] 41778- 1032 Jun, [facility] [place] [facility] [address] [id number] [place] [address]- 4524 30 May, 2014 [facility] [place] [facility] [address] [id number] [place] [address]- 6836 30 May, 2014 [facility] [place] [facility] [address] [id number] [place] [address]- 2189 30 May, 2014 [facility] [place] [facility] [address] [id number] [place] [address]- 4364 30 May, 2014 [facility] [place] [facility] [address] [id number] [place] [address]- 9935 May, [facility] [place] [facility] [address] [id number] [place] [address]- 2399 May, [facility] [place] [facility] [address] [id number] [place] [address]- 0347 May, [facility] [place] [facility] [address] [id number] [place] [address]- 9420 May, [facility] [place] [facility] [address] [id number] [place] [address]- 7407 May, [facility] [place] [facility] [address] [id number] [place] [address]- 0012 May, [facility] [place] [facility] [address] [id number] [place] [address]- 1967 May, [facility] [place] [facility] [address] [id number] [place] [address]- 8643 May, [facility] [place] [facility] [address] [id number] [place] [address]- 9776 May, [facility] [place] [facility] [address] [id number] [place] [address]- 8370 May, [facility] [place] [facility] [address] [id number] [place] [address]- 0939 Apr, [facility] [place] [facility] [address] [id number] [place] [address]- 7925 Apr, 2014 [facility] [place] [facility] [address] [id number] [place] [address]- 6090 Apr, 2014 [facility] [place] [facility] [address] [id number] [place] [address]- 2546 Apr, 2014 [facility] [place] [facility] [address] [id number] [place] [address]- 5212 Apr, 2014 [facility] [place] [facility] [address] [id number] [place] [address]- 4771 Apr, 2014 [facility] [place] [facility] [address] [id number] [place] [address]- 3725 Apr, 2014 [facility] [place] [facility] [address] [id number] [place] [address]- 5219 Apr, 2014 [facility] [place] [facility] [address] [id number] [place] [address]- 4346 Mar, [facility] [place] [facility] [address] [id number] [place] [address]- 3445 Mar, [facility] [place] [facility] [address] [id number] [place] [address]- 2796 Mar, [facility] [place] [facility] [address] [id number] [place] [address]- 7100 Mar, [facility] [place] [facility] [address] [id number] [place] [address]- 7649 Mar, [facility] [place] [facility] [address] [id number] [place] [address]- 5601 Mar, [facility] [place] [facility] [address] [id number] [place] [address]- 5927 Mar, [facility] [place] [facility] [address] [id number] [place] [address]- 9799 Mar, [facility] [place] [facility] [address] [id number] [place] [address]- 5840 Mar, [facility] [place] [facility] [address] [id number] [place] [address]- 9786 Mar, [facility] [place] [facility] [address] [id number] [place] [address]- 8686 Mar, [facility] [place] [facility] [address] [id number] [place] [address]- 5998 Mar, [facility] [place] [facility] [address] [id number] [place] [address]- 2260 Mar, [facility] [place] [facility] [address] [id number] [place] [address]- 8407 Mar, [facility] [place] [facility] [address] [id number] [place] [address]- 6203 Mar, [facility] [place] [facility] [address] [id number] [place] [address]- 4856 Mar, [facility] [place] [facility] [address] [id number] [place] [address]- 7845 Feb, [facility] [place] [facility] [address] [id number] [place] [address]- 0473 Feb, [facility] [place] [facility] [address] [id number] [place] [address]- 2740 Feb, [facility] [place] [facility] [address] [id number] [place] [address]- 6897 Feb, [facility] [place] [facility] [address] [id number] [place] [address]- 7521 Feb, [facility] [place] [facility] [address] [id number] [place] [address]- 8416 19 Feb, 2014 [facility] [place] [facility] [address] [id number] [place] [address]- 7976 15 Feb, 2014 [facility] [place] [facility] [address] [id number] [place] [address]- 0857 15 Feb, 2014 [facility] [place] [facility] [address] [id number] [place] [address]- 6597 08 Feb, 2014 [facility] [place] [facility] [address] [id number] [place] [address]- 4938 Feb, [facility] [place] [facility] [address] [id number] [place] [address]- 3637 Jan, [facility] [place] [facility] [address] [id number] [place] [address]- 6845 Jan, [facility] [place] [facility] [address] [id number] [place] [address]- 7037 Jan, [facility] [place] [facility] [address] [id number] [place] [address]- 2744 Jan, [facility] [place] [facility] [address] [id number] [place] [address]- 1358 Jan, [facility] [place] [facility] [address] [id number] [place] [address]- 0161 Jan, [facility] [place] [facility] [address] [id number] [place] [address]- 5934 Jan, [facility] [place] [facility] [address] [id number] [place] [address]- 7189 Jan, [facility] [place] [facility] [address] [id number] [place] [address]- 4006 Jan, [facility] [place] [facility] [address] [id number] [place] [address]- 8404 Dec, [facility] [place] [facility] [address] [id number] [place] [address]- 6845 Dec, [facility] [place] [facility] [address] [id number] [place] [address]- 4674 Dec, [facility] [place] [facility] [address] [id number] [place] [address]- 6605 Dec, [facility] [place] [facility] [address] [id number] [place] [address]- 5667 Dec, [facility] [place] [facility] [address] [id number] [place] [address]- 3554 Dec, [facility] [place] [facility] [address] [id number] [place] [address] Nov, [facility] [place] [facility] [address] [id number] [place] [address] Nov, 2013 [facility] [place] [facility] [address] [id number] [place] [address] Nov, 2013 [facility] [place] [facility] [address] [id number] [place] [address] Nov, 2013 [facility] [place] [facility] [address] [id number] [place] [address] Nov, 2013 [facility] [place] [facility] [address] [id number] [place] [address] Nov, [facility] [place] [facility] [address] [id number] [place] [address] Nov, [facility] [place] [facility] [address] [id number] [place] [address] Nov, [facility] [place] [facility] [address] [id number] [place] [address] Oct, [facility] [place] [facility] [address] [id number] [place] [address] Oct, [facility] [place] [facility] [address] [id number], [place] [address] Oct, [facility] [place] [facility] [address] [id number] [place] [address] Oct, [facility] [place] [facility] [address] [id number] [place] [address] Oct, [facility] [place] [facility] [address] [id number] [place] [address] Oct, [facility] [place] [facility] [address] [id number] [place] [address] Sep, [facility] [place] [facility] [address] [id number] [place] [address] Sep, [facility] [place] [facility] [address] [id number] [place] [address] Sep, [facility] [place] [facility] [address] [id number] [place] [address] Aug, [facility] [place] [facility] [address] [id number] [place] [address] Aug, [facility] [place] [facility] [address] [id number] [place] [address] July, [facility] [place] [facility] [address] [id number] [place] [address] July, [facility] [address] [id number] [place] [address] Jun, [facility] [place] [facility] [address] [id number] [place] [address] Jun, [facility] [place] [facility] [address] [id number] [place] [address] Jun, [facility] [place] [facility] [address] [id number] [place] [address] Jun, [facility] [place] [facility] [address] [id number] [place] [address] Jun, [facility] [place] [facility] [address] [id number] [place] [address] Jun, [facility] [place] [facility] [address] [id number] [place] [address] Jun, [facility] [place] [facility] [address] [id number] [place] [address] Jun, [facility] [place] [facility] [address] [id number] [place] [address] Jun, [facility] [place] [facility] [address] [id number] [place] [address] Jun, [facility] [place] [facility] [address] [id number] [place] [address] Jun, [facility] [place] [facility] [address] [id number] [place] [address] Jun, [facility] [place] [facility] [address] [id number] [place] [address] May, [facility] [place] [facility] [address] [id number] [place] [address] May, [facility] [place] [facility] [address] [id number] [place] [address] May, [facility] [place] [facility] [address] [id number] [place] [address] May, [facility] [place] [facility] [address] [id number] [place] [address] May, [facility] [place] [facility] [address] [id number] [place] [address] Apr, [facility] [place] [facility] [address] [id number] [place] [address] Apr, [facility] [place] [facility] [address] [id number] [place] [address] Apr, [facility] [place] [facility] [address] [id number] [place] [address] Apr, [facility] [place] [facility] [address] [id number] [place] [address] Mar, [facility] [place] [facility] [address] [id number] [place] [address] Mar, [facility] [place] [facility] [address] [id number] [place] [address] Mar, [facility] [place] [facility] [address] [id number], [place] [address] Mar, [facility] [place] [facility] [address] [id number] [place] [address] Feb, [facility] [place] [facility] [address] [id number] [place] [address] Feb, [facility] [place] [facility] [address] [id number] [place] [address] Feb, [facility] [place] [facility] [address] [id number] [place] [address] Feb, [facility] [place] [facility] [address] [id number] [place] [address] Jan, [facility] [place] [facility] [address] [id number] [place] [address] Jan, [facility] [place] [facility] [address] [id number] [place] [address] Jan, [facility] [place] [facility] [address] [id number] [place] [address] Jan, [facility] [place] [facility] [address] [id number] [place] [address] 08 Dec, 2012 [facility] [place] [facility] [address] [id number] [place] [address] 27 Nov, 2012 [facility] [place] [facility] [address] [id number], [place] [address] 23 Nov, 2012 [facility] [place] [facility] [address] [id number], [place] [address] 23 Nov, 2012 [facility] [place] [facility] [address] [id number] [place] [address] 10 Nov, 2012 [facility] [place] [facility] [address] [id number] [place] [address] 09 Nov, 2012 [facility] [place] [facility] [address] [id number] [place] [address] 15 Oct, 2012 [facility] [place] [facility] [address] [id number] [place] [address] Oct, [facility] [address] [id number] [place] [address] Sep, [facility] [address] [id number] [place] [address] 14[address] Sep, [facility] [address] [id number] [place] [address] Sep, [facility] [address] [id number] [place] [address] Sep, [facility] [address] [id number] [place] [address] Sep, [facility] [address] [id number] [place] [address] Aug, [facility] [address] [id number] [place] [address] 39[address] Aug, [facility] [address] [id number] [place] [address] Aug, [facility] [address] [id number] [place] [address] Aug, [facility] [address] [id number] [place] [address] July, [facility] [address] [id number] [place] [address] July, [facility] [address] [id number] [place] [address] July, [facility] [place] [facility] [address] [id number] [place] [address] Jun, [facility] [address] [id number] [place] [address]46 May, [facility] [address] [id number] [place] [address] May, [facility] [address] [id number] [place] [address] 1989 Apr, [facility] [place] [facility] [address] [id number] [place] [address] Mar, [facility] [place] [facility] [address] [id number] [place] [address]36 Mar, [facility] [place] [facility] [address] [id number] [place] [address] 3317 Mar, [facility] [address] [id number] [place] [address] Mar, [facility] [place] [facility] [address] [id number] [place] [address] Feb, [facility] [place] [facility] [address] [id number] [place] [address] 6046 Feb, [facility] [place] [facility] [address] [id number] [place] [address] Feb, [facility] [place] [facility] [address] [id number] [place] [address] 45[address] Feb, [facility] [place] [facility] [address] [id number] [place] [address] Jan, [facility] [place] [facility] [address] [id number] [place] [address] 9806 Jan, [facility] [place] [facility] [address] [id number], [place] [address] Sep, [facility] [place] [facility] [address] [id number] [place] [address]- 4869 Sep, [facility] [place] [facility] [address] [id number] [place] [address]- 1716 Aug, [facility] [place] [facility] [address] [id number] [place] [address] 3313 Aug, [facility] [place] [facility] [address] [id number], [place] [address] 09 Jun, 2011 [facility] [address] [id number], [place] [address] 30 May, 2011 [facility] [address] [id number], [place] [address] May, [facility] [id number], [place] [address] Mar, [facility] [id number], [place] [address] Mar, [facility] [id number], [place] [address] Feb, [facility] [id number], [place] [address] Feb, [facility] [id number], [place] [address] Feb, [facility] [id number], [place] [address] Dec, [facility] [id number], [place] [address] Aug, [facility] [address] [id number], [place] [address] May, [facility] [address] [id number], [place] [address] Mar, [facility] [address] [id number], [place] [address] 16 Oct, 2009 [facility] [id number], [place] [address] 14 Sep, 2009 [facility] [id number], [place] [address] Jun, IMMUNIZATIONS No Known Immunizations SOCIAL HISTORY Never Assessed REASON FOR VISIT PLAN OF CARE VITAL SIGNS MEDICATIONS Medication Instructions Dosage Frequency Start Date End Date Duration Status Lantus SoloStar 100 UNIT/ML Subcutaneous twice a day 42 units 12h 21 Oct, 2016 Active RESULTS No Results PROCEDURES No [...]
[2018-02-25 23:48] LABS: BASOPHILS # (AUTO) 0.1 10^3/uL (0.0-0.1); BASOPHILS % (AUTO) 1 % (0-10); EOSINOPHILS # (AUTO) 0.3 10^3/uL (0.0-0.3); EOSINOPHILS % (AUTO) 2 % (0-10); HEMATOCRIT 46 % (40-54); HEMOGLOBIN 16.2 G/DL (13.3-17.7); LYMPHOCYTES # (AUTO) 2.9 X 10^3 (1.0-4.0); LYMPHOCYTES % (AUTO) 23 % (12-44); MEAN CORPUSCULAR HEMOGLOBIN 30 PG (25-34); MEAN CORPUSCULAR HGB CONC 35 G/DL (32-36); MEAN CORPUSCULAR VOLUME 86 FL (80-99); MEAN PLATELET VOLUME 10.4 FL (7.4-10.4); MONOCYTES # (AUTO) 0.6 X 10^3 (0.0-1.0); MONOCYTES % (AUTO) 5 % (0-12); NEUTROPHILS % (AUTO) 70 % (42-75); PLATELET COUNT 420 10^3/uL (130-400); RED BLOOD COUNT 5.38 10^6/uL (4.35-5.85); RED CELL DISTRIBUTION WIDTH 12.8 % (10.0-14.5); WHITE BLOOD COUNT 12.9 10^3/uL (4.3-11.0)
--- OUTSIDE RECORDS SUMMARY | 2018-02-25 23:49 | XMS REPORT ---
Author Author MELISSA FERNANDEZ Organization [facility] Address [address] [place] [address] Care Team Providers Care Principal Statistical Scientist Name Role Phone MELISSA FERNANDEZ Unavailable PROBLEMS Type Condition ICD9-CM Code [id number] Code Onset Dates Condition Status SNOMED Code Problem Recurrent major depressive disorder, in partial remission F33.41 Active 13933411 Problem Cannabis abuse F12.10 Active 97838340 Problem Attention deficit hyperactivity disorder, combined type F90.2 Active 17027937 Problem Type 2 diabetes mellitus with hyperglycemia E11.65 Active 726093750 Problem Uncontrolled type 2 diabetes mellitus without complication, without long-term 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 E11.65 Active 266814402 Problem 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 Active 183321634 Problem Major depression F32.9 Active 183601539 Problem Type 2 diabetes mellitus with diabetic nephropathy E11.21 Active 391632053 Problem Type 2 diabetes mellitus with hyperglycemia E11.65 Active 757868132 Problem Diabetes type 2, uncontrolled E11.65 Active 662118816 Problem Mood disorder F39 Active 98014220 Problem Attention deficit hyperactivity disorder (ADHD), predominantly inattentive type F90.0 Active 00856491 Problem Noncompliance w/medication treatment due to intermit use of medication Z91.14 Active 602534016 Problem 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 Active 415492710 Problem Anxiety F41.9 Active 22925212 Problem Generalized anxiety disorder F41.1 Active 98250098 Problem Noncompliance of patient with dietary regimen Z91.11 Active 872861441 Problem Major depression, chronic F32.9 Active 122868700 ALLERGIES No Information ENCOUNTERS Encounter Location Date Diagnosis [facility] [id number], [place] [address] Jun, [facility] [address] [facility] [id number] [address] Jun, [facility] [address] [place] [address] Mar, Type 2 diabetes mellitus with diabetic nephropathy E11.21 [facility] [address] [place] [address]756 Mar, Anxiety F41.9 ; Diabetes type 2, uncontrolled E11.65 and Tooth infection K04.7 [facility] [address] [place] [address] 8[address] Mar, Type 2 diabetes mellitus with diabetic nephropathy E11.21 [facility] [address] [place] [address] 1985 Feb, [facility] [id number] [place] [address], [place] [address] Jan, Type 2 diabetes mellitus with diabetic nephropathy E11.21 [facility] [address] [place] [address] 8145 Dec, Type 2 diabetes mellitus with diabetic nephropathy E11.21 [facility] [address], [place] [address] Nov, Mood disorder F39 and Type 2 diabetes mellitus with hyperglycemia E11.65 [facility] [address] [place] [address] 0483 Oct, Mood disorder F39 and Type 2 diabetes mellitus with hyperglycemia E11.65 [facility] [address], [place] [address] Sep, Type 2 diabetes mellitus with diabetic nephropathy E11.21 and Seizures R56.9 [facility] [address] [place] [address] 0831 Sep, [facility] [address] [place] [address]- 2440 Sep, [facility] [address], [place] [address] 0[address] Sep, [facility] [address], [place] [address] 8780 July, [facility] [address], [place] [address] 7[address] Jun, [facility] [address], [place] [address] Jun, [facility] [address], [place] [address] 9[address] Jun, Uncontrolled type 2 diabetes mellitus without complication, without long-term 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 E11.65 [facility] [address], [place] [address] 6[address] May, [facility] [id number] [place] [address]- 9183 May, [address], [place] [address] 0947 Mar, Generalized anxiety disorder F41.1 ; Major depression F32.9 ; Attention deficit hyperactivity disorder, combined type F90.2 ; Amphetamine and psychostimulant abuse, 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 and Cannabis abuse F12.10 [address] [place] [address], [place] [address] 8515 Mar, Type 2 diabetes mellitus with diabetic nephropathy E11.21 ; Type 2 diabetes mellitus with hyperglycemia E11.65 and longterm 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.4 [address] [place] [address], [place] [address] 6126 Feb, [facility] [address], [place] [address] 7845 Jan, [facility] [address], [place] [address]- 7505 Dec, [address] [place] [id number] [place] [address]- 3465 Dec, Generalized anxiety disorder F41.1 ; Attention deficit hyperactivity disorder, combined type F90.2 and Recurrent major depressive disorder, in partial remission F33.41 [address] [place] [id number], [place] [address] 37[address] Dec, Diabetes type 2, uncontrolled E11.65 [facility] [address], [place] [address] 2986 Dec, [facility] [address] [address] Dec, [facility] [address] [address] Dec, [facility] [address], [place] [address]- 0236 Nov, [facility] [id number] [place] [address]- 7744 Oct, Noncompliance w/medication treatment due to intermit use of medication Z91.14 [facility] [address], [place] [address] 2915 Oct, Noncompliance w/medication treatment due to intermit use of medication Z91.14 [facility] [address], [place] [address]- 8490 Oct, [facility] [address], [place] [address]- 1070 Oct, [facility] [address], [place] [address]- 0967 Oct, [facility] [address], [place] [address]- 0911 Sep, Diabetic polyneuropathy associated with type 2 diabetes mellitus E11.42 [facility] [address], [place] [address]- 7313 Sep, [facility] [address] [address] Aug, Diabetes type 2, uncontrolled E11.65 and Diabetic polyneuropathy associated with type 2 diabetes mellitus E11.42 [facility] [id number] [place] [address]- 8780 Aug, [facility] [id number] [place] [address] 39[address]- 7727 Aug, [address] [place] [id number] [place] [address]- 2882 July, Generalized anxiety disorder F41.1 and Major depression F32.9 [address] [address] [address] July, [address] [id number] [place] [address] 8[address]- 8311 Jun, [address] [address] May, longterm 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.899 ; Diabetes type 2, uncontrolled E11.65 ; Gastroenteritis K52.9 ; Malaise R53.81 and Dysrhythmia I49.9 [place] [id number] [place] [address]- 8093 May, [place] [id number] [place] [address] 97186- 8373 May, [place] [id number] [place] [address] 77697- 5642 Apr, [place] [id number] [place] [address] 00818- 9667 Apr, Type 2 diabetes mellitus with hyperglycemia E11.65 [place] [id number] [place] [address] 90227- 4238 Apr, [place] [id number] [place] [address] 30192- 3135 Apr, 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 ; Generalized anxiety disorder F41.1 ; Attention deficit hyperactivity disorder, combined type F90.2 and Major depression F32.9 [place] [id number] [place] [address]- 7757 Mar, [facility] [address] [facility] [id number], [place] [address]80 Mar, [facility] [address] [facility] [id number] [place] [address]- 8425 Mar, [facility] [address] [facility] [id number] [place] [address]- 3632 Mar, [facility] [address] [facility] [id number] [place] [address] 27824- 7806 Mar, [facility] [address] [facility] [id number] [place] [address]- 9905 Feb, [facility] [address] [facility] [id number] [place] [address] 52039- 5454 Feb, [facility] [address] [place] [address]- 5277 Feb, [facility] [address], [place] [address]- 5682 Jan, Diabetes type 2, uncontrolled E11.65 [facility] [address], [place] [address]- 8625 Jan, [facility] [address], [place] [address]- 5344 Jan, [facility] [address], [place] [address]- 3874 Jan, [facility] [address], [place] [address]- 0035 Dec, [facility] [address], [place] [address]- 1856 Dec, [facility] [address] [facility] [id number], [place] [address]- 6145 Dec, [facility] [id number], [place] [address]- 1529 Dec, Type 2 diabetes mellitus with diabetic nephropathy E11.21 [facility] [place] [facility] [id number] [place] [address] 01726- 6431 Dec, [facility] [id number] [place] [address] 55268- 9661 Dec, [facility] [id number] [place] [address] 19537- 6331 Dec, [facility] [id number] [place] [address] 32077- 5429 Dec, Attention deficit hyperactivity disorder, combined type F90.2 ; Generalized anxiety disorder F41.1 and Major depression F32.9 [facility] [id number] [place] [address] 33580- 5978 Dec, Type 2 diabetes mellitus with diabetic nephropathy E11.21 and Type 2 diabetes mellitus with hyperglycemia E11.65 [facility] [id number] [place] [address] 81667- 1485 30 Nov, 2014 [facility] [id number] [place] [address] 39343- 9037 17 Nov, 2014 [facility] [id number] [place] [address] 40626- 2699 16 Nov, 2014 [facility] [id number] [place] [address] 69046- 4244 Oct, [facility] [id number] [place] [address] 60464- 1850 Oct, [facility] [id number] [place] [address] 90571- 9649 Oct, [facility] [id number] [place] [address] 79015- 5235 Sep, Hepatitis C 070.70 and URI, acute 465.9 [facility] [id number] [place] [address] 35244- 0323 Sep, [facility] [id number] [place] [address] 85704- 2546 Sep, [facility] [address] 2226 Sep, [facility] [address], [place] [address]- 5528 Aug, [facility] [address] 9680 Aug, [facility] [id number] [place] [address] 76671- 6691 Aug, [facility] [id number] [place] [address] 654206- 8726 Aug, [facility] [id number] [place] [address] 715280- 7003 Aug, [facility] [id number] [place] [address] 902694- 2779 Aug, [facility] [address], [place] [address]- 3438 Aug, Generalized anxiety disorder 300.02 ; Attention deficit disorder of childhood without mention of hyperactivity 314.00 and Major depressive disorder, recurrent episode, severe, specified as with psychotic behavior 296.34 [facility] [address], [place] [address]- 7466 July, Diabetes with renal manifestations, type II or unspecified type, uncontrolled 250.42 [facility] [address], [place] [address]- 3356 July, [facility] [address] 6576 July, [facility] [id number] 5003 July, [facility] [id number] 6203 Jun, [facility] [id number], [place] [address]- 5985 14 Jun, 2014 [facility] [place] [facility] [address] [id number] [place] [address]- 8404 13 Jun, 2014 [facility] [place] [facility] [address] [id number] [place] [address]- 2276 30 May, 2014 [facility] [place] [facility] [address] [id number] [place] [address]- 8003 30 May, 2014 [facility] [place] [facility] [address] [id number] [place] [address]- 7670 30 May, 2014 [facility] [place] [facility] [address] [id number] [place] [address]- 6627 30 May, 2014 [facility] [place] [facility] [address] [id number] [place] [address]- 7417 May, [facility] [place] [facility] [address] [id number] [place] [address]- 6546 May, [facility] [place] [facility] [address] [id number] [place] [address]- 0255 May, [facility] [place] [facility] [address] [id number] [place] [address]- 5026 26 May, 2014 [facility] [place] [facility] [address] [id number] [place] [address]- 7927 18 May, 2014 [facility] [place] [facility] [address] [id number] [place] [address]- 7644 18 May, 2014 [facility] [place] [facility] [address] [id number] [place] [address]- 7046 13 May, 2014 [facility] [place] [facility] [address] [id number] [place] [address]- 6457 13 May, 2014 [facility] [place] [facility] [address] [id number] [place] 6856 May, [facility] [place] [facility] [address] [id number] [place] [address]- 6783 11 May, 2014 [facility] [place] [facility] [address] [id number] [place] [address]- 5724 Apr, 2014 [facility] [place] [facility] [address] [id number] [place] [address]- 1336 Apr, 2014 [facility] [place] [facility] [address] [id number] [place] [address] 2546 Apr, 2014 [facility] [place] [facility] [address] [id number] [place] [address]- 7356 Apr, 2014 [facility] [place] [facility] [address] [id number] [place] [address]- 2545 Apr, 2014 [facility] [place] [facility] [address] [id number] [place] [address]- 1086 Apr, 2014 [facility] [place] [facility] [address] [id number] [place] [address]- 2350 Apr, [facility] [place] [facility] [address] [id number] [place] [address]- 8016 Apr, [facility] [place] [facility] [address] [id number] [place] [address]- 8001 Mar, [facility] [place] [facility] [address] [id number] [place] [address]- 0872 Mar, [facility] [place] [facility] [address] [id number] [place] [address]- 9630 Mar, [facility] [place] [facility] [address] [id number], [place] [address]- 5008 Mar, [facility] [place] [facility] [address] [id number] [place] [address]- 1027 Mar, [facility] [place] [facility] [address] [id number] [place] [address]- 5836 Mar, [facility] [place] [facility] [address] [id number] [place] [address]- 2420 Mar, [facility] [place] [facility] [address] [id number] [place] [address]- 1939 Mar, [facility] [place] [facility] [address] [id number] [place] [address]- 0807 Mar, [facility] [place] [facility] [address] [id number] [place] [address]- 4231 Mar, [facility] [place] [facility] [address] [id number] [place] [address]- 6283 Mar, [facility] [place] [facility] [address] [id number] [place] [address]- 1032 Mar, [facility] [place] [facility] [address] [id number] [place] [address]- 5352 Mar, [facility] [place] [facility] [address] [id number] [place] [address]- 3332 Mar, [facility] [place] [facility] [address] [id number] [place] [address]- 4769 Mar, [facility] [place] [facility] [address] [id number] [place] [address]- 7354 Mar, [facility] [place] [facility] [address] [id number] [place] [address]- 1288 Feb, [facility] [place] [facility] [address] [id number] [place] [address]- 9623 Feb, [facility] [place] [facility] [address] [id number] [place] [address]- 8817 Feb, [facility] [place] [facility] [address] [id number] [place] [address]- 7725 Feb, [facility] [place] [facility] [address] [id number] [place] [address]- 8437 Feb, [facility] [place] [facility] [address] [id number] [place] [address]- 2555 Feb, [facility] [place] [facility] [address] [id number] [place] [address]- 4018 15 Feb, 2014 [facility] [place] [facility] [address] [id number] [place] [address]- 6669 15 Feb, 2014 [facility] [place] [facility] [address] [id number] [place] [address]- 7526 Feb, [facility] [place] [facility] [address] [id number] [place] [address]- 7055 Feb, [facility] [place] [facility] [address] [id number] [place] [address]- 5101 Jan, [facility] [place] [facility] [address] [id number] [place] [address]- 5804 Jan, [facility] [place] [facility] [address] [id number] [place] [address]- 9128 Jan, [facility] [place] [facility] [address] [id number] [place] [address]- 1046 Jan, [facility] [place] [facility] [address] [id number] [place] [address]- 7079 Jan, [facility] [place] [facility] [address] [id number] [place] [address]- 3241 Jan, [facility] [place] [facility] [address] [id number] [place] [address]- 1521 Jan, [facility] [place] [facility] [address] [facility] [id number] [place] [address]- 2629 Jan, [facility] [place] [facility] [address] [id number] [place] [address]- 2437 Jan, [facility] [place] [facility] [address] [id number] [place] [address]- 5344 Dec, [facility] [place] [facility] [address] [id number] [place] [address]- 7154 Dec, [facility] [place] [facility] [address] [id number] [place] [address]- 0481 Dec, [facility] [place] [facility] [address] [id number] [place] [address]- 3198 Dec, [facility] [place] [facility] [address] [id number] [place] [address]- 2040 Dec, [facility] [place] [facility] [address] [id number] [place] [address]- 1352 Dec, [facility] [place] [facility] [address] [id number] [place] [address]- 1568 Nov, [facility] [place] [facility] [address] [id number] [place] [address]- 8853 Nov, 2013 [facility] [place] [facility] [address] [id number] [place] [address]- 1959 Nov, [facility] [place] [facility] [address] [id number] [place] [address]- 7330 Nov, [facility] [place] [facility] [address] [id number] [place] [address]- 0383 Nov, [facility] [place] [facility] [address] [id number] [place] [address]- 2152 Nov, [facility] [place] [facility] [address] [id number] [place] [address] Nov, [facility] [place] [facility] [address] [id number] [place] [address] Nov, [facility] [place] [facility] [address] [id number] [place] [address] Oct, [facility] [place] [facility] [address] [id number], [place] [address] Oct, [facility] [place] [facility] [address] [id number] [place] [address] Oct, [facility] [place] [facility] [address] [id number] [place] [address] Oct, [facility] [place] [facility] [address] [id number] [place] [address] Oct, [facility] [place] [facility] [address] [id number] [place] [address] Oct, [facility] [place] [facility] [address] [id number] [place] [address] Sep, [facility] [place] [facility] [address] [id number] [place] [address] Sep, [facility] [place] [facility] [address] [id number] [place] [address] Sep, [facility] [place] [facility] [address] [id number] [place] [address] Aug, [facility] [place] [facility] [address] [id number] [place] [address] Aug, [facility] [place] [facility] [address] [id number] [place] [address] July, [facility] [place] [facility] [address] [id number] [place] [address] July, [facility] [place] [facility] [address] [id number] [place] [address] Jun, [facility] [place] [facility] [address] [id number] [place] [address] Jun, [facility] [place] [facility] [address] [id number] [place] [address] Jun, [facility] [place] [facility] [address] [id number] [place] [address] Jun, [facility] [place] [facility] [address] [id number] [place] [address] Jun, [facility] [place] [facility] [address] [id number] [place] [address] Jun, [facility] [place] [facility] [address] [id number] [place] [address] Jun, [facility] [place] [facility] [address] [id number] [place] [address] Jun, [facility] [place] [facility] [address] [id number] [place] [address] Jun, [facility] [place] [facility] [address] [id number] [place] [address] Jun, [facility] [place] [facility] [address] [id number] [place] [address] Jun, [facility] [place] [facility] [address] [id number] [place] [address] Jun, [facility] [place] [facility] [address] [id number] [place] [address] May, [facility] [place] [facility] [address] [id number] [place] [address] May, [facility] [place] [facility] [address] [id number] [place] [address] May, [facility] [place] [facility] [address] [id number] [place] [address] May, [facility] [place] [facility] [address] [id number] [place] [address] May, [facility] [place] [facility] [address] [id number] [place] [address] Apr, [facility] [place] [facility] [address] [id number] [place] [address] Apr, [facility] [place] [facility] [address] [id number] [place] [address] Apr, [facility] [place] [facility] [address] [id number] [place] [address] Apr, [facility] [place] [facility] [address] [id number] [place] [address] Mar, [facility] [place] [facility] [address] [id number] [place] [address] Mar, [facility] [place] [facility] [address] [id number], [place] [address] Mar, [facility] [address] [id number] [place] [address] Mar, [facility] [place] [facility] [address] [id number] [place] [address] [address] Feb, [facility] [place] [facility] [address] [id number] [place] [address] Feb, [facility] [place] [facility] [address] [id number] [place] [address] Feb, [facility] [place] [facility] [address] [id number] [place] [address] Feb, [facility] [place] [facility] [address] [id number] [place] [address] Jan, [facility] [place] [facility] [address] [id number] [place] [address] Jan, [facility] [place] [facility] [address] [id number] [place] [address] Jan, [facility] [place] [facility] [address] [id number] [place] [address] Jan, [facility] [place] [facility] [address] [id number] [place] [address] 08 Dec, 2012 [facility] [place] [facility] [address] [id number], [place] [address] 27 Nov, 2012 [facility] [place] [facility] [address] [id number], [place] [address] 23 Nov, 2012 [facility] [place] [facility] [address] [id number] [place] [address] 23 Nov, 2012 [facility] [place] [facility] [address] [id number] [place] [address] 10 Nov, 2012 [facility] [place] [facility] [address] [id number] [place] [address] 09 Nov, 2012 [facility] [place] [facility] [address] [id number] [place] [address] Oct, [facility] [address] [id number] [place] [address] Oct, [facility] [address] [id number] [place] [address] Sep, [facility] [address] [id number] [place] [address] Sep, [facility] [address] [id number] [place] [address] Sep, [facility] [address] [id number] [place] [address] Sep, [facility] [address] [id number] [place] [address] Sep, [facility] [address] [id number] [place] [address] Aug, [facility] [address] [id number] [place] [address] 96[address] Aug, [facility] [address] [id number] [place] [address] Aug, [facility] [address] [id number] [place] [address] Aug, [facility] [address] [id number] [place] [address] July, [facility] [address] [id number] [place] [address] July, [facility] [address] [id number] [place] [address] July, [facility] [address] [id number] [place] [address] Jun, [facility] [address] [id number] [place] [address] May, [facility] [address] [id number] [place] [address] May, [facility] [place] [facility] [address] [id number] [place] [address] 2814 Apr, [facility] [place] [facility] [address] [id number] [place] [address] Mar, [facility] [place] [facility] [address] [id number] [place] [address] Mar, [facility] [address] [id number] [place] [address] Mar, [facility] [place] [facility] [address] [id number] [place] [address] 56[address] Mar, [facility] [place] [facility] [address] [id number] [place] [address]841 Feb, [facility] [place] [facility] [address] [id number] [place] [address] Feb, [facility] [place] [facility] [address] [id number] [place] [address] Feb, [facility] [place] [facility] [address] [id number] [place] [address] Feb, [facility] [place] [facility] [address] [id number] [place] [address] 101[address] Jan, [facility] [place] [facility] [address] [id number], [place] [address] Jan, [facility] [place] [facility] [address] [id number] [place] [address] Sep, [facility] [place] [facility] [address] [id number], [place] [address] Sep, [facility] [place] [facility] [address] [id number] [place] [address] 9080 Aug, [facility] [place] [facility] [id number] [place] [address] 20 Aug, 2011 [facility] [address] [facility] [id number] [place] [address] Jun, [facility] [address] [facility] [id number] [place] [address] 30 May, 2011 [facility] [address] [facility] [id number] [place] [address] May, [facility] [address] [facility] [id number] [place] [address] 2544 Mar, [facility] [address] [facility] [id number] [place] [address] 7634 Mar, [facility] [address] [facility] [id number] [place] [address] 49[address] Feb, [facility] [id number] [place] [address] Feb, [facility] [address] [facility] [id number] [place] [address] 69[address] Feb, [facility] [id number] [place] [address] 14 Dec, 2010 [facility] [id number] [place] [address] Aug, [facility] [address] [id number] [place] [address] 18 May, 2010 [facility] [address] [facility] [id number], [place] [address] 254 10 Mar, 2010 [facility] [address] [facility] [id number], [place] [address] 16 Oct, 2009 [facility] [address] [facility] [id number] [place] [address] 2546 14 Sep, 2009 [facility] [address] [id number], [place] [address] 16 Jun, 2009 IMMUNIZATIONS No Known Immunizations SOCIAL HISTORY Never Assessed REASON FOR VISIT VICTOZA PLAN OF CARE VITAL SIGNS MEDICATIONS Unknown [...]
--- OUTSIDE RECORDS SUMMARY | 2018-02-25 23:49 | XMS REPORT ---
Author Author MELISSA FERNANDEZ Organization [facility] Address [address] [place] [address] Care Team Providers Care Manager Field Services Name Role Phone MELISSA FERNANDEZ Unavailable PROBLEMS Type Condition ICD9-CM Code [id number] Code Onset Dates Condition Status SNOMED Code Problem Recurrent major depressive disorder, in partial remission F33.41 Active 59053899 Problem Cannabis abuse F12.10 Active 35106294 Problem Attention deficit hyperactivity disorder, combined type F90.2 Active 61930155 Problem Type 2 diabetes mellitus with hyperglycemia E11.65 Active 552392545 Problem Uncontrolled type 2 diabetes mellitus without complication, without long-term 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 E11.65 Active 040295937 Problem long term acute care registered nurse 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.4 Active 091816372 Problem Major depression F32.9 Active 740347453 Problem Type 2 diabetes mellitus with diabetic nephropathy E11.21 Active 516000903 Problem Type 2 diabetes mellitus with hyperglycemia E11.65 Active 124977601 Problem Diabetes type 2, uncontrolled E11.65 Active 728926520 Problem Mood disorder F39 Active 29814873 Problem Attention deficit hyperactivity disorder (ADHD), predominantly inattentive type F90.0 Active 62447019 Problem Noncompliance w/medication treatment due to intermit use of medication Z91.14 Active 118328140 Problem long term acute care registered nurse 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.899 Active 763282109 Problem Anxiety F41.9 Active 12081340 Problem Generalized anxiety disorder F41.1 Active 77381635 Problem Noncompliance of patient with dietary regimen Z91.11 Active 059071607 Problem Major depression, chronic F32.9 Active 227826100 ALLERGIES Substance Reaction Event Type Date Status Vicoprofen VIOLATION OF CONTRACT Drug Allergy May, Active Losartan Potassium-HCTZ elevated BP Drug Allergy May, Active Lisinopril-Hydrochlorothiazide cough/headache Drug Allergy May, Active Clonidine HCl throat swelling Drug Allergy May, Active SOCIAL HISTORY Never Assessed PLAN OF CARE VITAL SIGNS MEDICATIONS Medication Instructions Dosage Frequency Start Date End Date Duration Status Benicar HCT 40-25 MG Orally Once a day 1 tablet 24h Active RESULTS No Results PROCEDURES No [...]
--- OUTSIDE RECORDS SUMMARY | 2018-02-25 23:50 | XMS REPORT ---
Author Author MELISSA FERNANDEZ Organization [facility] [place] Address [address] [place] [address] Care Team Providers Care Plant Biology Professor Name Role Phone MELISSA FERNANDEZ Unavailable PROBLEMS Type Condition ICD9-CM Code FRR82-PD Code Onset Dates Condition Status SNOMED Code Problem Recurrent major depressive disorder, in partial remission F33.41 Active 67300624 Problem Cannabis abuse F12.10 Active 43542169 Problem Attention deficit hyperactivity disorder, combined type F90.2 Active 50139425 Problem Type 2 diabetes mellitus with hyperglycemia E11.65 Active 276362522 Problem Uncontrolled type 2 diabetes mellitus without complication, without long-term 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 E11.65 Active 794340032 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 Active 745897038 Problem Major depression F32.9 Active 494729401 Problem Type 2 diabetes mellitus with diabetic nephropathy E11.21 Active 601556463 Problem Type 2 diabetes mellitus with hyperglycemia E11.65 Active 632122437 Problem Diabetes type 2, uncontrolled E11.65 Active 300619606 Problem Mood disorder F39 Active 19674490 Problem Attention deficit hyperactivity disorder (ADHD), predominantly inattentive type F90.0 Active 31218730 Problem Noncompliance w/medication treatment due to intermit use of medication Z91.14 Active 728294664 Problem 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 Active 190854347 Problem Anxiety F41.9 Active 71149254 Problem Generalized anxiety disorder F41.1 Active 28517133 Problem Noncompliance of patient with dietary regimen Z91.11 Active 596905730 Problem Major depression, chronic F32.9 Active 358967128 ALLERGIES Substance Reaction Event Type Date Status Vicoprofen VIOLATION OF CONTRACT Drug Allergy Oct, Active Losartan Potassium-HCTZ elevated BP Drug Allergy Oct, Active Lisinopril-Hydrochlorothiazide cough/headache Drug Allergy Oct, Active Clonidine HCl throat swelling Drug Allergy Oct, Active ENCOUNTERS Encounter Location Date Diagnosis [facility] [place] [address] [address] July, [facility] [place] [id number] [place] [address] 48012- 6231 Mar, Type 2 diabetes mellitus with diabetic nephropathy E11.21 [facility] [place] [id number] [place] [address] 44415- 3372 Mar, Anxiety F41.9 ; Diabetes type 2, uncontrolled E11.65 and Tooth infection K04.7 [facility] [place] [id number] [place] [address] 79889- 7263 Mar, Type 2 diabetes mellitus with diabetic nephropathy E11.21 [facility] [place] [id number] [place] [address], [place] [address] 63[address] Feb, [facility] [place] [id number] [place] [address] 78133- 7869 Jan, Type 2 diabetes mellitus with diabetic nephropathy E11.21 [facility] [place] [id number] [place] [address] 35545- 2013 Dec, Type 2 diabetes mellitus with diabetic nephropathy E11.21 [facility] [place] [id number] [place] [address] 38036- 8641 Nov, Mood disorder F39 and Type 2 diabetes mellitus with hyperglycemia E11.65 [facility] [place] [id number] [address] 7739 Oct, Mood disorder F39 and Type 2 diabetes mellitus with hyperglycemia E11.65 [facility] [place] [address] [address] 8795 Sep, Type 2 diabetes mellitus with diabetic nephropathy E11.21 and Seizures R56.9 [facility] [place] [id number] [address] 4160 Sep, [facility] [place] [id number] [address] 4630 Sep, [facility] [place] [id number] [place] [address] 04969- 8810 Sep, [facility] [place] [address] [address] 6791 July, [facility] [place] [address] [address] Jun, [facility] [place] [address] [address] 1971 Jun, [facility] [place] [id number] [place] [address] 83757- 6847 Jun, Uncontrolled type 2 diabetes mellitus without complication, without long-term 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 E11.65 [place] [id number] [place] [address] 37858- 0501 May, [facility] [place] [address] [address]- 7480 May, [facility] [place] [id number] [place] [address] 55723- 1589 Mar, Generalized anxiety disorder F41.1 ; Major depression F32.9 ; Attention deficit hyperactivity disorder, combined type F90.2 ; Amphetamine and psychostimulant abuse, 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 and Cannabis abuse F12.10 [facility] [place] [address] [address] 1566 Mar, Type 2 diabetes mellitus with diabetic nephropathy E11.21 ; Type 2 diabetes mellitus with hyperglycemia E11.65 and 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 [facility] [place] [address] [address]- 0911 Feb, [facility] [place] [address] [address]- 4451 Jan, [facility] [place] [address] [address]- 6830 Dec, [facility] [place] [address] [address]- 3007 Dec, Generalized anxiety disorder F41.1 ; Attention deficit hyperactivity disorder, combined type F90.2 and Recurrent major depressive disorder, in partial remission F33.41 [place] [address] [address]- 2426 Dec, Diabetes type 2, uncontrolled E11.65 [facility] [place] [address] [address]- 3686 Dec, [facility] [place] [id number] [place] [address] 33580- 7076 Dec, [facility] [place] [id number] [address]- 4577 Dec, [facility] [place] [id number] [place] [address] 36944- 2007 Nov, [facility] [place] [id number] [place] [address] 46607- 7603 Oct, Noncompliance w/medication treatment due to intermit use of medication Z91.14 [facility] [place] [address] [address]- 8678 Oct, Noncompliance w/medication treatment due to intermit use of medication Z91.14 [place] [address] [address]- 5897 Oct, [facility] [place] [address] [address]- 5593 Oct, [facility] [place] [address] [address]- 5162 Oct, [facility] [place] [address] [address]- 7579 Sep, Diabetic polyneuropathy associated with type 2 diabetes mellitus E11.42 [facility] [place] [address] [address]- 7786 Sep, [facility] [place] [address] [address]- 4130 Aug, Diabetes type 2, uncontrolled E11.65 and Diabetic polyneuropathy associated with type 2 diabetes mellitus E11.42 [facility] [place] [address] [address]- 9035 Aug, [facility] [place] [address] [address]- 2406 Aug, [facility] [place] [id number] [place] [address] 92620- 7835 July, Generalized anxiety disorder F41.1 and Major depression F32.9 [facility] [place] [address] [address]- 4218 July, [facility] [place] [id number] [place] [address] 93806- 6594 Jun, [facility] [place] [id number] [place] [address] 13129- 2691 May, prison 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.899 ; Diabetes type 2, uncontrolled E11.65 ; Gastroenteritis K52.9 ; Malaise R53.81 and Dysrhythmia I49.9 [facility] [place] [id number] [place] [address] 66626- 9642 May, [facility] [place] [address] [address]- 4198 May, [facility] [place] [address] [address]- 5984 Apr, [facility] [place] [address] [address]- 2051 Apr, Type 2 diabetes mellitus with hyperglycemia E11.65 [facility] [place] [id number] [place] [address] 78902- 5582 Apr, [facility] [place] [address] [address]- 8115 Apr, prison 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.899 ; Generalized anxiety disorder F41.1 ; Attention deficit hyperactivity disorder, combined type F90.2 and Major depression F32.9 [facility] [place] [address] [address]- 1139 Mar, [facility] [place] [id number] [place] [address] 80156- 6835 Mar, [facility] [place] [address] [address]- 1340 Mar, [facility] [place] [id number] [place] [address] 88044- 8342 Mar, [facility] [place] [id number] [place] [address], [place] [address]- 8725 Mar, [facility] [place] [id number] [place] [address] 89044- 2593 Feb, [facility] [place] [id number] [place] [address] 87841- 3760 Feb, [facility] [place] [id number] [place] [address] 36345- 8596 Feb, [facility] [place] [id number] [place] [address] 85227- 0577 Jan, Diabetes type 2, uncontrolled E11.65 [facility] [place] [address] [address]- 7659 Jan, [facility] [place] [id number] [place] [address] 18707- 5177 Jan, [facility] [place] [address] [address]- 6403 Jan, [facility] [place] [address] [address]- 1169 Dec, [facility] [place] [address] [address]- 9683 Dec, [facility] [place] [address] [address]- 8327 Dec, [facility] [place] [address] [address]- 0371 Dec, Type 2 diabetes mellitus with diabetic nephropathy E11.21 [facility] [place] [id number] [place] [address] 39495- 2234 Dec, [facility] [place] [id number] [place] [address] 05315- 4620 Dec, [facility] [place] [id number] [place] [address] 92020- 2171 Dec, [facility] [place] [id number] [place] [address] 39300- 7270 Dec, Attention deficit hyperactivity disorder, combined type F90.2 ; Generalized anxiety disorder F41.1 and Major depression F32.9 [facility] [place] [id number] [place] [address] 72729- 6784 Dec, Type 2 diabetes mellitus with diabetic nephropathy E11.21 and Type 2 diabetes mellitus with hyperglycemia E11.65 [facility] [place] [id number] [place] [address] 69736- 4303 30 Nov, 2014 [facility] [place] [id number] [place] [address] 20791- 3067 17 Nov, 2014 [facility] [place] [id number] [place] [address] 21344- 6520 16 Nov, 2014 [facility] [place] [id number] [place] [address] 59690- 4310 Oct, [facility] [place] [id number] [place] [address] 81499- 6719 Oct, [facility] [place] [id number] [place] [address] 14894- 0743 Oct, [facility] [place] [id number] [place] [address] 24016- 9255 Sep, Hepatitis C 070.70 and URI, acute 465.9 [facility] [place] [id number] [place] [address] 13863- 8254 Sep, [facility] [place] [address] [address]- 0474 Sep, [facility] [place] [address] 3221 Sep, [facility] [place] [address] [address]- 5542 Aug, [facility] [place] [id number] [place] [address] 28806- 4495 Aug, [facility] [place] [id number] [place] [address] 49503- 0748 Aug, [facility] [place] [id number] [place] [address] 27232- 7491 Aug, [facility] [place] [id number] [place] [address] 75329- 1767 Aug, [facility] [place] [address] [address]- 6492 Aug, [facility] [place] [address] [address]- 2343 Aug, Generalized anxiety disorder 300.02 ; Attention deficit disorder of childhood without mention of hyperactivity 314.00 and Major depressive disorder, recurrent episode, severe, specified as with psychotic behavior 296.34 [facility] [place] [address] [address]- 8211 July, Diabetes with renal manifestations, type II or unspecified type, uncontrolled 250.42 [facility] [place] [address] [address]- 0588 July, [facility] [place] [address] [address]- 8789 July, [facility] [place] [address] [address]- 4751 July, [facility] [place] [id number] [place] [address] [place] [address]- 1685 30 Jun, 2014 [facility] [place] [facility] [address] [id number] [place] [address]- 4104 14 Jun, 2014 [facility] [place] [facility] [address] [id number] [place] [address]- 9828 13 Jun, 2014 [facility] [place] [facility] [address] [id number] [place] [address]- 1631 30 May, 2014 [facility] [place] [facility] [address] [id number] [place] [address]- 8887 30 May, 2014 [facility] [place] [facility] [address] [id number] [place] [address]- 4831 30 May, 2014 [facility] [place] [facility] [address] [id number] [place] [address]- 9397 30 May, 2014 [facility] [place] [facility] [address] [id number] [place] [address]- 9035 28 May, 2014 [facility] [place] [facility] [address] [id number] [place] [address]- 3191 28 May, 2014 [facility] [place] [facility] [address] [id number] [place] [address]- 7763 26 May, 2014 [facility] [place] [facility] [address] [id number] [place] [address]- 5618 26 May, 2014 [facility] [place] [facility] [address] [id number] [place] [address]- 9554 18 May, 2014 [facility] [place] [facility] [address] [id number] [place] [address]- 4445 18 May, 2014 [facility] [place] [facility] [address] [id number] [place] [address]- 1364 13 May, 2014 [facility] [place] [facility] [address] [id number] [place] [address]- 1908 13 May, 2014 [facility] [place] [facility] [address] [id number] [place] [address]- 2981 11 May, 2014 [facility] [place] [facility] [address] [id number] [place] [address]- 3589 May, [facility] [place] [facility] [address] [id number] [place] [address]- 6522 Apr, 2014 [facility] [place] [facility] [address] [id number] [place] [address]- 0789 Apr, 2014 [facility] [place] [facility] [address] [id number] [place] [address]- 2666 Apr, 2014 [facility] [place] [facility] [address] [id number] [place] [address]- 6053 Apr, 2014 [facility] [place] [facility] [address] [id number] [place] [address]- 1596 Apr, [facility] [place] [facility] [address] [id number] [place] [address]- 6855 Apr, [facility] [place] [facility] [address] [id number] [place] [address]- 4030 Apr, [facility] [place] [facility] [address] [id number] [place] [address]- 3559 Apr, [facility] [place] [facility] [address] [id number] [place] [address]- 7587 Mar, [facility] [place] [facility] [address] [id number] [place] [address]- 7963 Mar, [facility] [place] [facility] [address] [id number] [place] [address]- 6751 Mar, [facility] [place] [facility] [address] [id number] [place] [address]- 1044 Mar, [facility] [place] [facility] [address] [id number] [place] [address]- 5097 Mar, [facility] [place] [facility] [address] [id number] [place] [address]- 9660 Mar, [facility] [place] [facility] [address] [id number] [place] [address]- 7592 Mar, [facility] [address] [id number] [place] [address]- 4454 Mar, [facility] [place] [facility] [address] [id number] [place] [address]- 6447 Mar, [facility] [place] [facility] [address] [id number] [place] [address]- 8908 Mar, [facility] [place] [facility] [address] [id number] [place] [address]- 0439 Mar, [facility] [place] [facility] [address] [id number] [place] [address]- 9672 Mar, [facility] [place] [facility] [address] [id number] [place] [address]- 3993 Mar, [facility] [address] [id number] [place] [address]- 3588 Mar, [facility] [place] [facility] [address] [id number] [place] [address]- 7350 Mar, [facility] [place] [facility] [address] [id number] [place] [address]- 1658 Mar, [facility] [place] [facility] [address] [id number] [place] [address]- 8458 Feb, [facility] [place] [facility] [address] [id number] [place] [address]- 8661 Feb, [facility] [place] [facility] [address] [id number] [place] [address]- 1845 Feb, [facility] [place] [facility] [address] [id number] [place] [address]- 5176 Feb, [facility] [place] [facility] [address] [id number] [place] [address]- 2090 Feb, [facility] [place] [facility] [address] [id number] [place] [address]- 9854 Feb, [facility] [place] [facility] [address] [id number] [place] [address]- 7418 15 Feb, 2014 [facility] [place] [facility] [address] [id number] [place] [address]- 2823 Feb, [facility] [place] [facility] [address] [id number] [place] [address]- 0531 Feb, [facility] [place] [facility] [address] [id number] [place] [address]- 3997 Feb, [facility] [place] [facility] [address] [id number] [place] [address]- 1077 Jan, [facility] [place] [facility] [address] [id number] [place] [address]- 0233 Jan, [facility] [place] [facility] [address] [id number] [place] [address]- 5480 Jan, [facility] [place] [facility] [address] [id number] [place] [address]- 2628 Jan, [facility] [place] [facility] [address] [id number] [place] [address]- 4836 Jan, [facility] [place] [facility] [address] [id number] [place] [address]- 8880 Jan, [facility] [place] [facility] [address] [id number] [place] [address]- 8241 Jan, [facility] [place] [facility] [address] [id number] [place] [address]- 6383 Jan, [facility] [place] [facility] [address] [id number] [place] [address]- 6365 Jan, [facility] [place] [facility] [address] [id number] [place] [address]- 4251 Dec, [facility] [place] [facility] [address] [id number] [place] [address]- 0799 Dec, [facility] [place] [facility] [address] [id number] [place] [address] Dec, [facility] [place] [facility] [address] [id number] [place] [address] Dec, [facility] [place] [facility] [address] [id number] [place] [address] Dec, [facility] [place] [facility] [address] [id number] [place] [address] Dec, [facility] [place] [facility] [address] [id number] [place] [address] Nov, 2013 [facility] [place] [facility] [address] [id number] [place] [address] Nov, 2013 [facility] [place] [facility] [address] [id number] [place] [address] Nov, 2013 [facility] [place] [facility] [address] [id number] [place] [address] Nov, 2013 [facility] [place] [facility] [address] [id number] [address] Nov, 2013 [facility] [place] [facility] [address] [id number] [place] [address] Nov, 2013 [facility] [place] [facility] [address] [id number] [place] [address] Nov, 2013 [facility] [place] [facility] [address] [id number] [address] Nov, 2013 [facility] [place] [facility] [address] [id number] [place] [address] Oct, [facility] [place] [facility] [address] [id number] [place] [address] Oct, [facility] [place] [facility] [address] [id number] [place] [address] Oct, [facility] [place] [facility] [address] [id number] [place] [address] Oct, [facility] [place] [facility] [address] [id number] [place] [address] Oct, [facility] [place] [facility] [address] [id number] [place] [address] Oct, [facility] [place] [facility] [address] [id number] [place] [address] Sep, [facility] [place] [facility] [address] [id number] [place] [address] Sep, [facility] [place] [facility] [address] [id number] [place] [address] Sep, [facility] [place] [facility] [address] [id number] [place] [address] Aug, [facility] [place] [facility] [address] [id number] [place] [address] Aug, [facility] [place] [facility] [address] [id number] [place] [address] July, [facility] [place] [facility] [address] [id number] [place] [address] July, [facility] [place] [facility] [address] [id number] [place] [address] Jun, [facility] [place] [facility] [address] [id number] [place] [address] Jun, [facility] [place] [facility] [address] [id number] [place] [address] Jun, [facility] [place] [facility] [address] [id number] [place] [address] Jun, [facility] [place] [facility] [address] [id number] [place] [address] Jun, [facility] [place] [facility] [address] [id number] [place] [address] Jun, [facility] [place] [facility] [address] [id number] [place] [address] Jun, [facility] [place] [facility] [address] [id number] [place] [address] Jun, [facility] [place] [facility] [address] [id number] [place] [address] Jun, [facility] [place] [facility] [address] [id number] [place] [address] Jun, [facility] [place] [facility] [address] [id number] [place] [address] Jun, [facility] [place] [facility] [address] [id number] [place] [address] Jun, [facility] [place] [facility] [address] [id number] [place] [place] [address] May, [facility] [place] [facility] [address] [id number] [place] [address] May, [facility] [place] [facility] [address] [id number] [place] [address] May, [facility] [place] [facility] [address] [id number] [place] [address] May, [facility] [place] [facility] [address] [id number] [place] [address] May, [facility] [place] [facility] [address] [id number] [place] [address] Apr, [facility] [place] [facility] [address] [id number] [place] [address] Apr, [facility] [place] [facility] [address] [id number] [place] [address] Apr, [facility] [place] [facility] [address] [id number] [place] [address] Apr, [facility] [place] [facility] [address] [id number] [place] [address] Mar, [facility] [place] [facility] [address] [id number] [place] [address] 17 Mar, 2013 [facility] [address] [id number] [place] [address] Mar, [facility] [address] [id number] [place] [address] 13 Mar, 2013 [facility] [address] [id number] [place] [address] 17 Feb, 2013 [facility] [place] [facility] [address] [id number] [place] [address] 17 Feb, 2013 [facility] [address] [id number] [place] [address] Feb, [facility] [place] [facility] [address] [id number] [place] [address] 14[address] Feb, [facility] [address] [id number] [place] [address] Jan, [facility] [place] [facility] [address] [id number] [place] [address] Jan, [facility] [address] [id number] [place] [address]16 05 Jan, 2013 [facility] [place] [facility] [address] [id number] [place] [address] Jan, [facility] [address] [id number] [place] [address] 08 Dec, 2012 [facility] [place] [facility] [address] [id number] [address] 27 Nov, 2012 [facility] [place] [facility] [address] [id number] [place] [address]90 23 Nov, 2012 [facility] [place] [facility] [address] [id number] [place] [address] 23 Nov, 2012 [facility] [place] [facility] [address] [id number] [address] 10 Nov, 2012 [facility] [place] [facility] [address] [id number] [place] [address] 7988 Nov, [facility] [address] [id number] [place] [address] Oct, [facility] [place] [facility] [address] [id number] [place] [address] 2456 Oct, [facility] [place] [facility] [address] [id number] [place] [address] Sep, [facility] [place] [facility] [address] [id number] [place] [address] Sep, [facility] [place] [facility] [address] [id number] [place] [address] Sep, [facility] [place] [facility] [address] [id number] [place] [address] Sep, [facility] [place] [facility] [address] [id number] [place] [address] Sep, [facility] [address] [id number] [place] [address] Aug, [facility] [place] [facility] [address] [id number] [place] [address] Aug, [facility] [place] [facility] [address] [id number] [place] [address] 39[address] Aug, [facility] [place] [facility] [address] [id number] [place] [address] Aug, [facility] [place] [facility] [address] [id number] [place] [address] July, [facility] [place] [facility] [address] [id number] [place] [address] July, [facility] [place] [facility] [address] [id number] [place] [address] July, [facility] [place] [facility] [address] [id number] [place] [address] 28[address] Jun, [facility] [place] [facility] [address] [id number] [place] [address] May, [facility] [place] [facility] [address] [id number] [place] [address] May, [facility] [place] [facility] [address] [facility] [id number] [place] [address] Apr, [facility] [place] [facility] [address] [id number] [place] [address] Mar, [facility] [place] [facility] [address] [id number] [place] [address]245 Mar, [facility] [place] [facility] [address] [id number] [place] [address] Mar, [facility] [place] [facility] [address] [id number] [place] [address] Mar, [facility] [place] [facility] [address] [id number] [place] [address] 58[address] Feb, [facility] [place] [facility] [address] [id number] [place] [address]168 Feb, [facility] [place] [facility] [address] [id number] [place] [address] 2085 Feb, [facility] [place] [facility] [address] [id number] [address] Feb, [facility] [place] [facility] [address] [id number] [address] Jan, [facility] [place] [facility] [address] [id number] [place] [address]46 Jan, [facility] [place] [facility] [address] [id number] [place] [address]46 Sep, [facility] [place] [facility] [address] [id number] [place] [address] 2546 Sep, [facility] [place] [facility] [address] [id number] [place] [address] 8466 Aug, [facility] [address] [id number] [place] [address] 98[address] Aug, [facility] [address] [id number] [place] [address]- 6536 Jun, [facility] [address] [id number] [place] [address]36 30 May, 2011 [facility] [address] [id number] [place] [address] 1815 May, [facility] [address] [id number] [place] [address] 6965 Mar, [facility] [address] [id number] [place] [address] 6807 Mar, [facility] [address] [id number] [place] [address]- 6567 Feb, [facility] [address] [id number] [place] [address] 68[address] Feb, [facility] [address] [id number] [place] [address] Feb, [facility] [address] [id number] [place] [address] 14 Dec, 2010 [facility] [address] [id number] [place] [address]- 2738 15 Aug, 2010 [facility] [address] [id number] [place] [address]66 18 May, 2010 [facility] [place] [facility] [address] [id number] [place] [address]- 9585 10 Mar, 2010 [facility] [place] [facility] [address] [id number] [place] [address]- 2546 16 Oct, 2009 [facility] [address] [id number] [place] [address]- 8992 14 Sep, 2009 [facility] [place] [address] [facility] [id number] [place] [address] Jun, IMMUNIZATIONS No Known Immunizations SOCIAL HISTORY Never Assessed REASON FOR VISIT Seizure f/u and hospital f/u, was in the hospital last month, medication f/u. wants to restart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
--- OUTSIDE RECORDS SUMMARY | 2018-02-25 23:51 | XMS REPORT ---
Author Author MELISSA FERNANDEZ [facility] Address [address] [place] [address] Care Team Providers Care Bartender Helper Name Role Phone MELISSA FERNANDEZ Unavailable PROBLEMS Type Condition ICD9-CM Code NRV01-FE Code Onset Dates Condition Status SNOMED Code Problem Cannabis abuse F12.10 Active 70369433 Problem Type 2 diabetes mellitus with hyperglycemia E11.65 Active 157724591 Problem Major depression F32.9 Active 591642323 Problem Bipolar II disorder F31.81 Active 73171809 Problem Anxiety F41.9 Active 04056902 Problem Amphetamine and psychostimulant abuse, 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 Active Problem skilled nursing 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.4 Active 709973001 Problem Type 2 diabetes mellitus with diabetic nephropathy E11.21 Active 748416363 Problem Type 2 diabetes mellitus with hyperglycemia E11.65 Active 103982151 Problem Uncontrolled type 2 diabetes mellitus without complication, without long-term 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 E11.65 Active 711603428 Problem Diabetes type 2, uncontrolled E11.65 Active 159223388 Problem Noncompliance of patient with dietary regimen Z91.11 Active 280160951 Problem Mood disorder F39 Active 62689050 Problem Attention deficit hyperactivity disorder (ADHD), predominantly inattentive type F90.0 Active 73869285 Problem Major depression, chronic F32.9 Active 545860408 Problem Generalized anxiety disorder F41.1 Active 86681564 Problem Noncompliance w/medication treatment due to intermit use of medication Z91.14 Active 717469600 Problem Recurrent major depressive disorder, in partial remission F33.41 Active 79855541 Problem 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 Active 201575871 Problem Attention deficit hyperactivity disorder, combined type F90.2 Active 79432998 ALLERGIES No Information ENCOUNTERS Encounter Location Date Diagnosis [facility] [address] [facility] [id number] [address] Aug, [facility] [id number] [place] [address] 36614- 8898 Aug, [facility] [address], [place] [address] 58[address] July, Generalized anxiety disorder F41.1 ; Bipolar II disorder F31.81 ; Attention deficit hyperactivity disorder, combined type F90.2 ; Cannabis abuse F12.10 and Amphetamine and psychostimulant abuse, 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 [facility] [id number] [place] [address] 48209- 8609 Mar, Type 2 diabetes mellitus with diabetic nephropathy E11.21 [facility] [id number] [place] [address] 57742- 3787 Mar, Anxiety F41.9 ; Diabetes type 2, uncontrolled E11.65 and Tooth infection K04.7 [place] [id number] [place] [address] 06596- 8172 Mar, Type 2 diabetes mellitus with diabetic nephropathy E11.21 [facility] [id number] [place] [address] 68127- 8958 Feb, [facility] [id number] [place] [address] 75320- 4742 Jan, Type 2 diabetes mellitus with diabetic nephropathy E11.21 [facility] [address] [id number] [address] 4066 Dec, Type 2 diabetes mellitus with diabetic nephropathy E11.21 [facility] [address] [id number] [address] 5315 Nov, Mood disorder F39 and Type 2 diabetes mellitus with hyperglycemia E11.65 [facility] [id number] [place] [address] 23703- 0919 Oct, Mood disorder F39 and Type 2 diabetes mellitus with hyperglycemia E11.65 [facility] [id number], [place] [address] 6[address] Sep, Type 2 diabetes mellitus with diabetic nephropathy E11.21 and Seizures R56.9 [facility] [address] [place] [address] 7573 Sep, [facility] [address], [place] [address] 6645 Sep, [facility] [address], [place] [address]- 9667 Sep, [facility] [address], [place] [address] 8475 July, [facility] [address], [place] [address] 5376 Jun, [facility] [id number] [place] [address] 41617- 5553 Jun, [facility] [address], [place] [address]- 1557 Jun, Uncontrolled type 2 diabetes mellitus without complication, without long-term 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 E11.65 [facility] [address], [place] [address] 1318 May, [facility] [address], [place] [address] 2257 May, [facility] [address], [place] [address] 8639 Mar, Generalized anxiety disorder F41.1 ; Major depression F32.9 ; Attention deficit hyperactivity disorder, combined type F90.2 ; Amphetamine and psychostimulant abuse, 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 and Cannabis abuse F12.10 [facility] [id number] [address] 7318 Mar, Type 2 diabetes mellitus with diabetic nephropathy E11.21 ; Type 2 diabetes mellitus with hyperglycemia E11.65 and skilled nursing 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.4 [facility] [address], [place] [address] 2489 Feb, [facility] [address], [place] [address]- 0623 Jan, [facility] [address], [place] [address]- 7020 Dec, [facility] [id number] [place] [address] 28663- 9650 Dec, Generalized anxiety disorder F41.1 ; Attention deficit hyperactivity disorder, combined type F90.2 and Recurrent major depressive disorder, in partial remission F33.41 [facility] [id number] [place] [address] 20100- 5357 Dec, Diabetes type 2, uncontrolled E11.65 [facility] [id number], [place] [address]- 2223 Dec, [facility] [id number] [place] [address] 27218- 9559 Dec, [facility] [id number] [place] [address] 76238- 2486 Dec, [facility] [id number] [place] [address] 46632- 4295 Nov, [facility] [id number] [place] [address] 84729- 8912 Oct, Noncompliance w/medication treatment due to intermit use of medication Z91.14 [place] [address], [place] [address]- 1532 Oct, Noncompliance w/medication treatment due to intermit use of medication Z91.14 [facility] [address], [place] [address]- 8771 Oct, [facility] [id number] [address]- 4632 Oct, [facility] [address] [address] Oct, [facility] [address], [place] [address]- 1733 Sep, Diabetic polyneuropathy associated with type 2 diabetes mellitus E11.42 [facility] [address], [place] [address]- 2741 Sep, [facility] [id number] [place] [address] 53908- 7312 Aug, Diabetes type 2, uncontrolled E11.65 and Diabetic polyneuropathy associated with type 2 diabetes mellitus E11.42 [facility] [id number] [place] [address] 28358- 7968 Aug, [facility] [id number] [place] [address] 01335- 8481 Aug, [facility] [id number] [place] [address] 21971- 4257 July, Generalized anxiety disorder F41.1 and Major depression F32.9 [place] [id number] [place] [address] 76715- 6960 July, [facility] [id number] [place] [address] 45584- 1962 Jun, [facility] [id number] [place] [address] 17602- 9069 May, 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 ; Diabetes type 2, uncontrolled E11.65 ; Gastroenteritis K52.9 ; Malaise R53.81 and Dysrhythmia I49.9 [facility] [address], [place] [address]- 8843 May, [facility] [address], [place] [address]- 5108 May, [facility] [id number] [place] [address] 60033- 1430 Apr, [facility] [id number] [place] [address] 95311- 7365 Apr, Type 2 diabetes mellitus with hyperglycemia E11.65 [facility] [id number] [place] [address] 86864- 2546 Apr, [facility] [address] 0221 Apr, 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 ; Generalized anxiety disorder F41.1 ; Attention deficit hyperactivity disorder, combined type F90.2 and Major depression F32.9 [facility] [address], [place] [address]- 0596 Mar, [facility] [id number] [place] [address] 95540- 5251 Mar, [facility] [id number] [place] [address] 81244- 4477 Mar, [facility] [id number] [place] [address] 68771- 2696 Mar, [facility] [id number] [place] [address] 98565- 1348 Mar, [facility] [id number] [place] [address] 33701- 6949 Feb, [facility] [id number] [place] [address] 32405- 9223 Feb, [facility] [address], [place] [address]- 1226 Feb, [facility] [address], [place] [address]- 5106 Jan, Diabetes type 2, uncontrolled E11.65 [facility] [address], [place] [address]- 3426 Jan, [facility] [id number] [place] [address] 10359- 2896 Jan, [facility] [address], [place] [address]- 2546 Jan, [facility] [address], [place] [address]- 9566 Dec, [facility] [address], [place] [address]- 5395 Dec, [facility] [id number] [place] [address] 60330- 2416 30 Dec, 2014 [facility] [id number] [place] [address] 55202- 6714 Dec, Type 2 diabetes mellitus with diabetic nephropathy E11.21 [facility] [id number] [place] [address] 19602- 2165 Dec, [facility] [id number] [place] [address] 02760- 6869 Dec, [facility] [id number] [place] [address] 82791- 5249 Dec, [facility] [id number] [place] [address] 70783- 6746 Dec, Attention deficit hyperactivity disorder, combined type F90.2 ; Generalized anxiety disorder F41.1 and Major depression F32.9 [facility] [id number] [place] [address] 43442- 1814 Dec, Type 2 diabetes mellitus with diabetic nephropathy E11.21 and Type 2 diabetes mellitus with hyperglycemia E11.65 [facility] [address], [place] [address]- 0669 30 Nov, 2014 [facility] [id number] [place] [address] 76961- 8442 17 Nov, 2014 [facility] [id number] [place] [address] 93509- 3922 16 Nov, 2014 [facility] [id number] [place] [address] 49976- 8078 31 Oct, 2014 [facility] [id number] [place] [address] 32509- 1596 Oct, [facility] [id number] [place] [address] 04133- 2406 Oct, [facility] [id number] [place] [address] 966937- 4269 Sep, Hepatitis C 070.70 and URI, acute 465.9 [facility] [address] 8523 Sep, [facility] [id number] [place] [address] 955991- 0009 Sep, [facility] [id number] [place] [address] 769231- 3205 Sep, [facility] [id number] [place] [address] 797582- 1931 Aug, [facility] [id number] [place] [address] 174739- 5114 Aug, [facility] [id number] [place] [address] 72356- 9175 Aug, [facility] [id number] [place] [address] 36886- 9770 Aug, [facility] [id number] [place] [address] 729380- 0446 Aug, [facility] [id number] [place] [address] 11770- 1647 Aug, [facility] [id number] [place] [address] 753410- 2919 Aug, Generalized anxiety disorder 300.02 ; Attention deficit disorder of childhood without mention of hyperactivity 314.00 and Major depressive disorder, recurrent episode, severe, specified as with psychotic behavior 296.34 [facility] [id number] [place] [address] 606524- 1065 July, Diabetes with renal manifestations, type II or unspecified type, uncontrolled 250.42 [facility] [id number] [place] [address] 72831- 8316 July, [facility] [address] [facility] [id number] [place] [address]- 7056 July, [facility] [place] [facility] [address] [id number] [place] [address]- 2047 July, [facility] [place] [facility] [address] [id number] [place] [address]- 8246 30 Jun, 2014 [facility] [place] [facility] [address] [id number] [place] [address]- 1406 14 Jun, 2014 [facility] [place] [facility] [address] [id number] [place] [address]- 9907 Jun, [facility] [place] [facility] [address] [id number] [place] [address]- 3015 30 May, 2014 [facility] [place] [facility] [address] [id number] [place] [address]- 8577 30 May, 2014 [facility] [place] [facility] [address] [id number] [place] [address]- 2849 30 May, 2014 [facility] [place] [facility] [address] [id number] [place] [address]- 3278 30 May, 2014 [facility] [place] [facility] [address] [id number] [place] [address]- 2280 May, [facility] [place] [facility] [address] [id number] [place] [address]- 1080 28 May, 2014 [facility] [place] [facility] [address] [id number] [place] [address]- 1471 May, [facility] [place] [facility] [address] [id number] [place] [address]- 1326 May, [facility] [place] [facility] [address] [id number] [place] [address]- 4996 18 May, 2014 [facility] [place] [facility] [address] [id number] [place] [address]- 2546 18 May, 2014 [facility] [place] [facility] [address] [id number] [place] [address]- 8339 May, [facility] [place] [facility] [address] [id number] [place] [address]- 9117 13 May, 2014 [facility] [place] [facility] [address] [id number] [place] [address]- 1032 May, [facility] [place] [facility] [address] [id number] [place] [address]- 4742 May, [facility] [place] [facility] [address] [id number] [place] [address]- 9116 Apr, 2014 [facility] [place] [facility] [address] [id number] [place] [address]- 5970 Apr, [facility] [place] [facility] [address] [id number] [place] [address]- 3111 Apr, 2014 [facility] [place] [facility] [address] [id number] [place] [address]- 1845 Apr, 2014 [facility] [place] [facility] [address] [id number] [place] [address]- 0771 Apr, [facility] [place] [facility] [address] [id number] [place] [address]- 3636 Apr, [facility] [place] [facility] [address] [id number] [place] [address]- 5198 Apr, [facility] [place] [facility] [address] [id number] [place] [address]- 7439 Apr, [facility] [place] [facility] [address] [id number] [place] [address]- 9571 Mar, [facility] [place] [facility] [address] [id number] [place] [address]- 8881 Mar, [facility] [place] [facility] [address] [id number] [place] [address]- 6822 Mar, [facility] [place] [facility] [address] [id number] [place] [address]- 2273 Mar, [facility] [place] [facility] [address] [id number] [place] [address]- 3554 Mar, [facility] [address] [id number] [place] [address]- 0531 Mar, [facility] [place] [facility] [address] [id number] [place] [address]- 0285 Mar, [facility] [address] [id number] [place] [address]- 6353 Mar, [facility] [place] [facility] [address] [id number] [place] [address]- 4112 Mar, [facility] [place] [facility] [address] [id number] [place] [address]- 9014 Mar, [facility] [place] [facility] [address] [id number] [place] [address]- 9457 Mar, [facility] [address] [id number] [place] [address]- 4797 Mar, [facility] [address] [id number] [place] [address]- 0896 Mar, [facility] [place] [facility] [address] [id number] [place] [address]- 7039 Mar, [facility] [address] [id number] [place] [address]- 3862 Mar, [facility] [place] [facility] [address] [id number] [place] [address]- 5009 Mar, [facility] [place] [facility] [address] [id number] [place] [address]- 4532 Feb, [facility] [place] [facility] [address] [id number] [place] [address]- 8958 Feb, [facility] [place] [facility] [address] [id number] [place] [address]- 7162 Feb, [facility] [place] [facility] [address] [id number] [place] [address]- 3895 Feb, [facility] [place] [facility] [address] [id number] [place] [address]- 9086 Feb, [facility] [place] [facility] [address] [id number] [place] [address]- 7541 Feb, [facility] [place] [facility] [address] [id number] [place] [address]- 4941 Feb, [facility] [place] [facility] [address] [id number] [place] [address]- 9801 Feb, [facility] [place] [facility] [address] [id number] [place] [address]- 7547 Feb, [facility] [place] [facility] [address] [id number] [place] [address]- 9292 Feb, [facility] [place] [facility] [address] [id number] [place] [address]- 7336 Jan, [facility] [place] [facility] [address] [id number] [place] [address]- 1869 Jan, [facility] [place] [facility] [address] [id number] [place] [address]- 8852 Jan, [facility] [place] [facility] [address] [id number] [place] [address]- 4022 Jan, [facility] [place] [facility] [address] [id number] [place] [address]- 6680 Jan, [facility] [place] [facility] [address] [id number], [place] [address]- 5101 Jan, [facility] [place] [facility] [address] [id number] [place] [address]- 0301 Jan, [facility] [place] [facility] [address] [id number], [place] [address]- 7773 Jan, [facility] [place] [facility] [address] [id number] [place] [address]- 5289 Jan, [facility] [place] [facility] [address] [id number] [place] [address]- 4139 Dec, [facility] [place] [facility] [address] [id number] [place] [address]- 3238 Dec, [facility] [place] [facility] [address] [id number] [place] [address]- 3726 Dec, [facility] [place] [facility] [address] [id number] [place] [address]- 7365 Dec, [facility] [place] [facility] [address] [id number] [place] [address]- 9804 Dec, [facility] [place] [facility] [address] [id number] [place] [address]- 8911 Dec, [facility] [place] [facility] [address] [id number] [place] [address]- 5458 Nov, 2013 [facility] [place] [facility] [address] [id number] [place] [address]- 5881 Nov, 2013 [facility] [place] [facility] [address] [id number] [place] [address] Sep, 2013 [facility] [place] [facility] [address] [id number] [place] [address] Nov, 2013 [facility] [place] [facility] [address] [id number] [place] [address] Sep, 2013 [facility] [place] [facility] [address] [id number] [place] [address] 08 Nov, 2013 [facility] [place] [facility] [address] [id number] [place] [address] Sep, 2013 [facility] [place] [facility] [address] [id number] [place] [address] Nov, 2013 [facility] [place] [facility] [address] [id number] [place] [address] Oct, [facility] [place] [facility] [address] [id number] [place] [address] Oct, [facility] [place] [facility] [address] [id number] [place] [address] Oct, [facility] [place] [facility] [address] [id number] [place] [address] Oct, [facility] [place] [facility] [address] [id number] [place] [address] Oct, [facility] [place] [facility] [address] [id number] [place] [address] Oct, [facility] [place] [facility] [address] [id number] [place] [address] Sep, [facility] [place] [facility] [address] [id number] [place] [address] Sep, [facility] [place] [facility] [address] [id number] [place] [address] Sep, [facility] [place] [facility] [address] [id number] [place] [address] Aug, [facility] [place] [facility] [address] [id number] [place] [address] Aug, [facility] [place] [facility] [address] [id number] [place] [address] July, [facility] [place] [facility] [address] [id number] [place] [address] July, [facility] [place] [facility] [address] [id number] [place] [address] Jun, [facility] [place] [facility] [address] [id number] [place] [address] Jun, [facility] [place] [facility] [address] [id number] [place] [address] Jun, [facility] [place] [facility] [address] [id number] [place] [address] Jun, [facility] [place] [facility] [address] [id number] [place] [address] Jun, [facility] [place] [facility] [address] [id number] [place] [address] Jun, [facility] [place] [facility] [address] [id number] [place] [address] Jun, [facility] [place] [facility] [address] [id number] [place] [address] Jun, [facility] [place] [facility] [address] [id number] [place] [address] Jun, [facility] [place] [facility] [address] [id number] [place] [address] Jun, [facility] [place] [facility] [address] [id number] [place] [address] Jun, [facility] [place] [facility] [address] [id number] [place] [address] Jun, [facility] [place] [facility] [address] [id number] [place] [address] May, [facility] [place] [facility] [address] [id number] [place] [address] May, [facility] [place] [facility] [address] [id number] [place] [address] May, [facility] [place] [facility] [address] [id number] [place] [address] May, [facility] [place] [facility] [address] [id number] [place] [address] May, [facility] [place] [facility] [address] [id number] [place] [address] Apr, [facility] [place] [facility] [address] [id number] [place] [address] Apr, [facility] [place] [facility] [address] [id number] [place] [address] Apr, [facility] [place] [facility] [address] [id number] [place] [address] 07 Apr, 2013 [facility] [address] [id number] [place] [address] Mar, [facility] [address] [id number] [place] [address] Mar, [facility] [address] [id number] [place] [address] Mar, [facility] [address] [id number] [place] [address] Mar, [facility] [address] [id number] [place] [address] 47[address] Feb, [facility] [address] [id number] [place] [address] Feb, [facility] [address] [id number] [place] [address] Feb, [facility] [address] [id number] [place] [address] Feb, [facility] [address] [id number] [place] [address] Jan, [facility] [address] [id number] [place] [address] Jan, [facility] [place] [facility] [address] [id number] [place] [address] Jan, [facility] [place] [facility] [address] [id number] [place] [address] Jan, [facility] [place] [facility] [address] [id number] [place] [address] Dec, [facility] [place] [facility] [address] [id number] [place] [address] Nov, [facility] [place] [facility] [address] [id number] [place] [address] Nov, [facility] [place] [facility] [address] [id number] [place] [address] Nov, [facility] [place] [facility] [address] [id number] [place] [address] Nov, [facility] [place] [facility] [address] [id number] [place] [address] Nov, [facility] [place] [facility] [address] [id number] [place] [address] Oct, [facility] [place] [facility] [address] [id number] [place] [address] Oct, [facility] [place] [facility] [address] [id number] [place] [address]- [address] Sep, [facility] [place] [facility] [address] [id number] [place] [address] Sep, [facility] [place] [facility] [address] [id number] [place] [address] Sep, [facility] [place] [facility] [address] [id number] [place] [address]994 Sep, [facility] [place] [facility] [address] [id number] [place] [address] Sep, [facility] [place] [facility] [address] [id number] [place] [address] 9837 Aug, [facility] [place] [facility] [address] [id number] [place] [address] Aug, [facility] [place] [facility] [address] [id number] [place] [address] Aug, [facility] [place] [facility] [address] [id number] [place] [address] Aug, [facility] [place] [facility] [address] [id number] [place] [address] 39[address] July, [facility] [place] [facility] [address] [id number] [place] [address] July, [facility] [address] [id number] [place] [address]- [address] July, [facility] [address] [id number] [place] [address]- [address] Jun, [facility] [address] [id number] [place] [address]- [address] May, [facility] [place] [facility] [address] [id number] [place] [address] May, [facility] [address] [id number] [place] [address]18 Apr, [facility] [place] [facility] [address] [id number] [place] [address]0 Mar, [facility] [address] [id number] [place] [address]- [address]858 Mar, [facility] [address] [id number] [place] [address] Mar, [facility] [address] [id number] [place] [address]- [address] Mar, [facility] [address] [id number] [place] [address] Feb, [facility] [address] [id number] [place] [address]- [address] Feb, [facility] [place] [facility] [address] [id number] [place] [address]- [address] Feb, [facility] [place] [facility] [address] [id number] [place] [address]- 9418 Feb, [facility] [place] [facility] [address] [id number] [place] [address]- [address] Jan, [facility] [place] [facility] [address] [id number] [place] [address]- [address] Jan, [facility] [place] [facility] [address] [id number] [place] [address]- [address]46 Sep, [facility] [place] [facility] [address] [id number] [place] [address]- [address]46 Sep, [facility] [place] [facility] [address] [id number] [place] [address]- 2546 Aug, [facility] [place] [facility] [address] [id number] [place] [address]- 6686 Aug, [facility] [place] [facility] [address] [id number] [place] [address]- 2546 Jun, [facility] [place] [facility] [address] [id number] [place] [address]- 58[address] May, [facility] [place] [facility] [address] [id number] [place] [address]- 3937 May, [facility] [place] [facility] [address] [id number] [place] [address]- 1326 Mar, [facility] [place] [facility] [address] [id number] [place] [address]- 4670 Mar, [facility] [place] [facility] [address] [id number] [place] [address]- 2536 Feb, [facility] [place] [facility] [address] [id number] [place] [address]- 7006 Feb, [facility] [place] [facility] [address] [id number] [place] [address]- 2756 Feb, [facility] [place] [facility] [address] [id number] [place] [address] 14 Dec, 2010 [facility] [place] [facility] [address] [id number] [place] [address]- [address] 15 Aug, 2010 [facility] [place] [facility] [address] [id number] [place] [address]- [address]46 18 May, 2010 [facility] [place] [facility] [address] [id number], [place] [address] Mar, [facility] [address] [facility] [id number] [place] [address] Oct, [facility] [address] [facility] [id number], [place] [address] Sep, [facility] [address] [facility] [id number] [place] [address] Jun, IMMUNIZATIONS No Known Immunizations SOCIAL HISTORY Never Assessed REASON FOR VISIT Controlled refill Request PLAN OF CARE VITAL SIGNS MEDICATIONS [...]
--- OUTSIDE RECORDS SUMMARY | 2018-02-25 23:53 | XMS REPORT | Continuity of Care Document ---
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 12/20/2017 BERNRITA, JENNI Ot E11.9 TYPE 2 DIABETES MELLITUS WITHOUT COMPLIC 12/20/2017 BERNRITA, JENNI Ot F15.10 OTHER STIMULANT ABUSE, UNCOMPLICATED 12/20/2017 MARKO WILLINGHAMIS Ot F32.9 MAJOR DEPRESSIVE DISORDER, SINGLE EPISOD 12/20/2017 MARKO WILLINGHAMIS Ot F41.9 ANXIETY DISORDER, UNSPECIFIED 12/20/2017 TARSHA JENNI Ot G40.909 EPILEPSY, UNSP, NOT INTRACTABLE, WITHOUT 12/20/2017 BERNOT, JENNI Ot I10 ESSENTIAL (PRIMARY) HYPERTENSION 12/20/2017 TARSHA, JENNI Ot S61.412A LACERATION WITHOUT FOREIGN BODY OF LEFT 12/20/2017 JENNI WILLINGHAM Ot W26.0XXA CONTACT WITH KNIFE, INITIAL ENCOUNTER 12/20/2017 JENNI WILLINGHAM Ot Z23 ENCOUNTER FOR IMMUNIZATION 12/20/2017 MARKO WILLINGHAMIS Ot Z77.22 CNTCT W AND EXPSR TO ENVIRON TOBACCO SMO 12/20/2017 MARKO WILLINGHAMIS Ot Z79.4 JAIL (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 OF INSULIN 12/20/2017 TARSHA JENNI Ot Z79.82 JAIL (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 OF ASPIRIN 12/20/2017 TARSHA JENNI Ot Z82.49 FAMILY HX OF ISCHEM HEART DIS AND OTH DI 12/20/2017 MARKO WILLINGHAMIS Ot Z86.73 PRSNL HX OF TIA (TIA), AND CEREB INFRC W 12/20/2017 MARKO WILLINGHAMIS Ot B19.20 UNSPECIFIED VIRAL HEPATITIS C WITHOUT HE 12/20/2017 MARKO WILLINGHAMIS Ot E11.9 TYPE 2 DIABETES MELLITUS WITHOUT COMPLIC 12/20/2017 TARSHA JENNI Ot F15.10 OTHER STIMULANT ABUSE, UNCOMPLICATED 12/20/2017 MARKO WILLINGHAMIS Ot F32.9 MAJOR DEPRESSIVE DISORDER, SINGLE EPISOD 12/20/2017 TARSHA JENNI Ot F41.9 ANXIETY DISORDER, UNSPECIFIED 12/20/2017 BERNRITA JENNI Ot G40.909 EPILEPSY, UNSP, NOT INTRACTABLE, WITHOUT 12/20/2017 BERNOT, JENNI Ot I10 ESSENTIAL (PRIMARY) HYPERTENSION 12/20/2017 MARKO WILLINGHAMIS Ot S61.412A LACERATION WITHOUT FOREIGN BODY OF LEFT 12/20/2017 JENNI WILLINGHAM Ot W26.0XXA CONTACT WITH KNIFE, INITIAL ENCOUNTER 12/20/2017 JENNI WILLINGHAM Ot Z23 ENCOUNTER FOR IMMUNIZATION 12/20/2017 JENNI WILLINGHAM Ot Z77.22 CNTCT W AND EXPSR TO ENVIRON TOBACCO SMO 12/20/2017 JENNI WILLINGHAM Ot Z79.4 NET MENDER (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 OF INSULIN 12/20/2017 JENNI WILLINGHAM Ot Z79.82 JAIL (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 OF ASPIRIN 12/20/2017 JENNI WILLINGHAM Ot Z82.49 FAMILY HX OF ISCHEM HEART DIS AND OTH DI 12/20/2017 JENNI WILLINGHAM Ot Z86.73 PRSNL HX OF TIA (TIA), AND CEREB INFRC W 01/03/2018 NWNATALIIA HOUSTON O [employer] Ot S62.92XA UNSP FRACTURE OF LEFT WRIST AND HAND, IN 01/03/2018 NWIRLANDA HOUSTONDORE O [employer] Ot X58.XXXA EXPOSURE TO OTHER SPECIFIED FACTORS, INI 01/03/2018 NWCORINNE HOUSTONRE O [employer] Ot Z53.1 PROC/TRTMT NOT CRD OUT BEC PT BELIEF AND Procedures Code Description [place] [address] A1C (IN-HOUSE) 03/22/2012 23008 ROUTINE VENIPUNCTURE 03/29/2012 86321 URINE DRUG SCREEN (IN-HOUSE ) 03/29/2012 34408 MICRO ALBUMIN-IN HOUSE 03/29/2012 74979 CBC 03/29/2012 19300 CMP 03/29/2012 32707 LIPID PANEL 03/29/2012 1990487 GFR CALC (RESULT ONLY) 03/29/2012 96108 A1C (IN-HOUSE) 07/05/2012 [facility] 07/05/2012 25266 A1C (IN-HOUSE) 04/25/2013 51173 MICRO ALBUMIN-IN HOUSE 10/10/2013 07291 EEG 10/10/2013 72005 A1C (IN-HOUSE) 10/10/2013 95941 PSYCH DIAG EVAL W/MED SRVCS 04/04/2014 97851 ROUTINE VENIPUNCTURE 04/08/2014 76966 CBC 04/08/2014 98426 CMP 04/08/2014 04945 LIPID PANEL 04/08/2014 6307857 GFR CALC (RESULT ONLY) 04/08/2014 43284 HEP C PCR QUANT (SERIAL) 04/08/2014 Results Test Result Range Complete blood count (CBC) with automated white blood cell (WBC) differential - 10/02/16 13:55 Blood leukocytes automated count (number/volume) 9.6 10*3/uL 4.3-11.0 Blood erythrocytes automated count (number/volume) 5.72 10*6/uL 4.35-5.85 Venous blood hemoglobin measurement (mass/volume) 16.8 g/dL 13.3-17.7 Blood hematocrit (volume fraction) 48 % 40-54 Automated erythrocyte mean corpuscular volume 85 [foz_us] 80-99 Automated erythrocyte mean corpuscular hemoglobin (mass per erythrocyte) 29 pg 25-34 Automated erythrocyte mean corpuscular hemoglobin concentration measurement ( mass/volume) 35 g/dL 32-36 Automated erythrocyte distribution width ratio 13.3 % 10.0-14.5 Automated blood platelet count (count/volume) 344 10*3/uL 130-400 Automated blood platelet mean volume measurement 9.8 [foz_us] 7.4-10.4 Automated blood neutrophils/100 leukocytes 65 % 42-75 Automated blood lymphocytes/100 leukocytes 27 % 12-44 Blood monocytes/100 leukocytes 6 % 0-12 Automated blood eosinophils/100 leukocytes 2 % 0-10 Automated blood basophils/100 leukocytes 1 % 0-10 Blood neutrophils automated count (number/volume) 6.2 10*3 1.8-7.8 Blood lymphocytes automated count (number/volume) 2.6 10*3 1.0-4.0 Blood monocytes automated count (number/volume) 0.6 10*3 0.0-1.0 Automated eosinophil count 0.2 10*3/uL 0.0-0.3 Automated blood basophil count (count/volume) 0.1 10*3/uL 0.0-0.1 Comprehensive metabolic panel - 10/02/16 13:55 Serum or plasma sodium measurement (moles/volume) 134 mmol/L 135-145 Serum or plasma potassium measurement (moles/volume) 3.7 mmol/L 3.6-5.0 Serum or plasma chloride measurement (moles/volume) 101 mmol/L 98-107 Carbon dioxide 26 mmol/L 21-32 Serum or plasma anion gap determination (moles/volume) 7 mmol/L 5-14 Serum or plasma urea nitrogen measurement (mass/volume) 13 mg/dL 7-18 Serum or plasma creatinine measurement (mass/volume) 1.06 mg/dL 0.60-1.30 Serum or plasma urea nitrogen/creatinine mass ratio 12 NRG Serum or plasma creatinine measurement with calculation of estimated glomerular filtration rate > NRG Serum or plasma glucose measurement (mass/volume) 280 mg/dL 70-105 Serum or plasma calcium measurement (mass/volume) 8.7 mg/dL 8.5-10.1 Serum or plasma total bilirubin measurement (mass/volume) 0.4 mg/dL 0.1-1.0 Serum or plasma alkaline phosphatase measurement (enzymatic activity/volume) 120 U/L 40-136 Serum or plasma aspartate aminotransferase measurement (enzymatic activity/ volume) 19 U/L 5-34 Serum or plasma alanine aminotransferase measurement (enzymatic activity/volume ) 37 U/L 0-55 Serum or plasma protein measurement (mass/volume) 7.0 g/dL 6.4-8.2 Serum or plasma albumin measurement (mass/volume) 3.8 g/dL 3.2-4.5 Magnesium - 10/02/16 13:55 Magnesium 1.7 mg/dL 1.8-2.4 Ammonia - 10/02/16 13:55 Ammonia 21 umol/L 11-32 Serum or plasma ethanol measurement (mass/volume) - 10/02/16 13:55 Serum or plasma ethanol measurement (mass/volume) < mg/dL <10 Capillary blood glucose measurement by glucometer (mass/volume) - 10/02/16 13: 58 Capillary blood glucose measurement by glucometer (mass/volume) 247 mg/dL 70-110 Complete urinalysis with reflex to culture - 10/02/16 15:15 Urine color determination YELLOW NRG Urine clarity determination CLEAR NRG Urine pH measurement by test strip 6.5 5-9 Specific gravity of urine by test strip 1.010 1.016- 1.022 Urine protein assay by test strip, semi-quantitative NEGATIVE NEGATIVE Urine glucose detection by automated test strip 4+ NEGATIVE Erythrocytes detection in urine sediment by light microscopy NEGATIVE NEGATIVE Urine ketones detection by automated test strip NEGATIVE NEGATIVE Urine nitrite detection by test strip NEGATIVE NEGATIVE Urine total bilirubin detection by test strip NEGATIVE NEGATIVE Urine urobilinogen measurement by automated test strip (mass/volume) NORMAL NORMAL Urine leukocyte esterase detection by dipstick NEGATIVE NEGATIVE Automated urine sediment erythrocyte count by microscopy (number/high power field) RARE NRG Automated urine sediment leukocyte count by microscopy (number/high power field ) NONE NRG Bacteria detection in urine sediment by light microscopy NONE NRG Crystals detection in urine sediment by light microscopy NONE NRG Casts detection in urine sediment by light microscopy NONE NRG Mucus detection in urine sediment by light microscopy NEGATIVE NRG Complete urinalysis with reflex to culture NO NRG Urine drug screening test - 10/02/16 15:15 Urine phencyclidine detection by screening method NEGATIVE NEGATIVE Urine benzodiazepines detection by screening method NEGATIVE NEGATIVE Urine cocaine detection NEGATIVE NEGATIVE Urine amphetamines detection by screening method POSITIVE NEGATIVE Urine methamphetamine detection by screening method POSITIVE NEGATIVE Urine cannabinoids detection by screening method NEGATIVE NEGATIVE Urine opiates detection by screening method NEGATIVE NEGATIVE Urine barbiturates detection NEGATIVE NEGATIVE Screening urine tricyclic antidepressants detection NEGATIVE NEGATIVE Urine methadone detection by screening method NEGATIVE NEGATIVE Urine oxycodone detection NEGATIVE NEGATIVE Urine propoxyphene detection NEGATIVE NEGATIVE Complete blood count (CBC) with automated white blood cell (WBC) differential - 10/02/16 23:05 Blood leukocytes automated count (number/volume) 8.9 10*3/uL 4.3-11.0 Blood erythrocytes automated count (number/volume) 4.86 10*6/uL 4.35-5.85 Venous blood hemoglobin measurement (mass/volume) 14.5 g/dL 13.3-17.7 Blood hematocrit (volume fraction) 42 % 40-54 Automated erythrocyte mean corpuscular volume 86 [foz_us] 80-99 Automated erythrocyte mean corpuscular hemoglobin (mass per erythrocyte) 30 pg 25-34 Automated erythrocyte mean corpuscular hemoglobin concentration measurement ( mass/volume) 35 g/dL 32-36 Automated erythrocyte distribution width ratio 13.1 % 10.0-14.5 Automated blood platelet count (count/volume) 280 10*3/uL 130-400 Automated blood platelet mean volume measurement 9.8 [foz_us] 7.4-10.4 Automated blood neutrophils/100 leukocytes 59 % 42-75 Automated blood lymphocytes/100 leukocytes 31 % 12-44 Blood monocytes/100 leukocytes 8 % 0-12 Automated blood eosinophils/100 leukocytes 2 % 0-10 Automated blood basophils/100 leukocytes 0 % 0-10 Blood neutrophils automated count (number/volume) 5.3 10*3 1.8-7.8 Blood lymphocytes automated count (number/volume) 2.7 10*3 1.0-4.0 Blood monocytes automated count (number/volume) 0.7 10*3 0.0-1.0 Automated eosinophil count 0.2 10*3/uL 0.0-0.3 Automated blood basophil count (count/volume) 0.0 10*3/uL 0.0-0.1 PT panel in platelet poor plasma by coagulation assay - 10/02/16 23:05 Prothrombin time (PT) in platelet poor plasma by coagulation assay 11.8 s 12.2-14.7 INR in platelet poor plasma or blood by coagulation assay 0.9 0.8-1.4 Activated partial thromboplastin time (aPTT) in platelet poor plasma bycoagulation assay - 10/02/16 23:05 Activated partial thromboplastin time (aPTT) in platelet poor plasma bycoagulation assay 26 s 24-35 Fibrin D-dimer FEU measurement in platelet poor plasma (mass/volume) - 23:05 Fibrin D-dimer FEU measurement in platelet poor plasma (mass/volume) 0.29 ug/mL 0.00-0.49 Comprehensive metabolic panel - 10/02/16 23:05 Serum or plasma sodium measurement (moles/volume) 136 mmol/L 135-145 Serum or plasma potassium measurement (moles/volume) 3.6 mmol/L 3.6-5.0 Serum or plasma chloride measurement (moles/volume) 106 mmol/L 98-107 Carbon dioxide 22 mmol/L 21-32 Serum or plasma anion gap determination (moles/volume) 8 mmol/L 5-14 Serum or plasma urea nitrogen measurement (mass/volume) 14 mg/dL 7-18 Serum or plasma creatinine measurement (mass/volume) 0.96 mg/dL 0.60-1.30 Serum or plasma urea nitrogen/creatinine mass ratio 15 NRG Serum or plasma creatinine measurement with calculation of estimated glomerular filtration rate > NRG Serum or plasma glucose measurement (mass/volume) 344 mg/dL 70-105 Serum or plasma calcium measurement (mass/volume) 8.2 mg/dL 8.5-10.1 Serum or plasma total bilirubin measurement (mass/volume) 0.2 mg/dL 0.1-1.0 Serum or plasma alkaline phosphatase measurement (enzymatic activity/volume) 89 U/L 40-136 Serum or plasma aspartate aminotransferase measurement (enzymatic activity/ volume) 18 U/L 5-34 Serum or plasma alanine aminotransferase measurement (enzymatic activity/volume ) 30 U/L 0-55 Serum or plasma protein measurement (mass/volume) 5.6 g/dL 6.4-8.2 Serum or plasma albumin measurement (mass/volume) 3.1 g/dL 3.2-4.5 Serum or plasma troponin i.cardiac measurement (mass/volume) - 10/02/16 23:05 Serum or plasma troponin i.cardiac measurement (mass/volume) < ng/ mL <0.30 Capillary blood glucose measurement by glucometer (mass/volume) - 10/02/16 23: 18 Capillary blood glucose measurement by glucometer (mass/volume) 308 mg/dL 70-110 Encounters ACCT No. Visit Date/Time Discharge Status Pt. Type Provider Facility Loc./Unit Complaint [id number] 07/03/2014 12:50:00 07/03/2014 23:59:59 CLS Outpatient ANNE QUINONES [id number] 04/08/2014 12:29:00 04/08/2014 23:59:59 CLS Outpatient MELISSA FERNANDEZ APRN [id number] 04/03/2014 07:48:00 04/03/2014 23:59:59 CLS Outpatient ANNE QUINONES [id number] 04/03/2014 07:48:00 04/03/2014 23:59:59 CLS Outpatient ANNE QUINONES [id number] 01/07/2014 11:52:00 01/07/2014 23:59:59 CLS Outpatient MELISSA FERNANDEZ APRN [id number] 10/31/2013 12:28:00 10/31/2013 23:59:59 CLS Outpatient MELISSA FERNANDEZ APRN [id number] 10/10/2013 11:23:00 10/10/2013 23:59:59 CLS Outpatient MELISSA FERNANDEZ APRN [id number] 07/16/2013 14:11:00 07/16/2013 23:59:59 CLS Outpatient MELISSA FERNANDEZ APRN [id number] 06/24/2013 10:07:00 06/24/2013 23:59:59 CLS Outpatient TRAY DUMONT MD [id number] 06/24/2013 10:07:00 06/24/2013 23:59:59 CLS Outpatient TRAY DUMONT MD [id number] 06/18/2013 12:34:00 06/18/2013 23:59:59 CLS Outpatient MELISSA FERNANDEZ APRN [id number] 06/03/2013 13:41:00 06/03/2013 23:59:59 CLS Outpatient SHANNAN DHILLON MD [id number] 04/25/2013 15:50:00 04/25/2013 23:59:59 CLS Outpatient TRAY DUMONT MD [id number] 04/25/2013 15:50:00 04/25/2013 23:59:59 CLS Outpatient MELISSA FERNANDEZ APRN [id number] 12/13/2012 11:39:00 12/13/2012 23:59:59 CLS Outpatient MELISSA FERNANDEZ APRN [id number] 10/14/2012 11:24:00 10/14/2012 23:59:59 CLS Outpatient MELISSA FERNANDEZ APRN [id number] 03/29/2012 10:12:00 03/29/2012 23:59:59 CLS Outpatient MELISSA FERNANDEZ APRN [id number] 03/22/2012 12:34:00 03/22/2012 23:59:59 CLS Outpatient [id number] 09/06/2011 11:19:00 09/06/2011 23:59:59 CLS Outpatient [id number] 09/06/2011 11:19:00 09/06/2011 23:59:59 CLS Outpatient MELISSA FERNANDEZ APRN [id number] 08/05/2012 10:50:00 Document Registration [id number] 07/05/2012 08:53:00 Document Registration [id number] 07/20/2017 13:20:00 07/20/2017 23:59:59 CLS Outpatient MELISSA FERNANDEZ APRN [facility] [id number] 01/01/2018 12:19:00 01/01/2018 23:59:59 CLS Outpatient NWAGSUKUMAR NATALIIA Armas APRN [facility] RAD ACUTE PAIN OF LEFT WRIST [id number] 12/18/2017 21:53:00 12/18/2017 23:10:00 DIS Emergency JENNI WILLINGHAM [facility] ER CUT HAND BLEEDING [id number] 10/02/2016 22:43:00 10/02/2016 23:57:00 DIS Emergency ARASH AHN MD [facility] ER SEIZURE [id number] 10/02/2016 13:55:00 10/02/2016 17:20:00 DIS Emergency DESI MOORE, KEVIN Villavicencio [facility] ER CONFUSION [id number] 12/05/2013 16:26:00 12/05/2013 18:27:00 DIS Emergency LIAN MOORE, ALEXANDRE Guzman [facility] ER CP [id number] 09/30/2013 19:50:00 10/05/2013 15:31:00 DIS Inpatient JACQUIE MOORE, SHANNAN Crystal [facility] 4TH HYPERGLYCEMIA,WEAKNESS [id number] 06/09/2013 14:52:00 06/10/2013 16:40:00 DIS Inpatient JULIA MOORE, TRAY Jeff [facility] CSD CHEST PAIN
[2018-02-25 23:54] LABS: ABG BASE EXCESS -17.9 MMOL/L (-2.5-2.5); ABG OXYGEN SATURATION 95 % (94-100); ABG PCO2 46 MMHG (35-45); ABG PO2 105 MMHG (79-93); ABG TCO2 12.6 MMOL/L (21.0-31.0)
[2018-02-26] VITALS (37 sets, daily range): BP systolic 56–146; BP diastolic 33–107
[2018-02-26 00:04] LABS: ABG PH 7.01 (7.37-7.43); ALLENS TEST POSITIVE; INSPIRED O2 10; PATIENT TEMP 96.9; VENTILATOR NO
[2018-02-26 00:08] LABS: ALANINE AMINOTRANSFERASE 33 U/L (0-55); ALBUMIN 3.9 GM/DL (3.2-4.5); ALKALINE PHOSPHATASE 128 U/L (40-136); AMYLASE 160 U/L (25-125); BILIRUBIN,TOTAL 0.2 MG/DL (0.1-1.0); BUN/CREATININE RATIO 12; CALCIUM 9.6 MG/DL (8.5-10.1); CARBON DIOXIDE 10 MMOL/L (21-32); CHLORIDE 99 MMOL/L (98-107); CREATINE KINASE 160 U/L (30-200); CREATININE SERUM 1.69 MG/DL (0.60-1.30); GFR ESTIMATED 42; LIPASE 326 U/L (8-78); MAGNESIUM 2.3 MG/DL (1.8-2.4); SODIUM 137 MMOL/L (135-145); TOTAL PROTEIN 6.6 GM/DL (6.4-8.2)
[2018-02-26] MEDS: SODIUM BICARB 8.4% 50 MEQ/50 ML (ABBOTT) SYR ONE (00:08)
[2018-02-26] MEDS ORDERED: LEVETIRACETAM INJECTION 1,000 MG in NS (IVPB) 100 ML IV SCH (00:15)
[2018-02-26] MEDS ORDERED: SODIUM BICARB 8.4% 50 MEQ/50 ML (ABBOTT) SYR IV ONE (00:15)
[2018-02-26] MEDS ORDERED: LORazepam INJ 2 MG/ML (ATIVAN) VIAL IVP ONE (00:15)
[2018-02-26 00:16] LABS: BILIRUBIN,URINE NEGATIVE (NEGATIVE); CLARITY,URINE CLEAR; COLOR,URINE YELLOW; GLUCOSE, URINE (UA) 4+ (NEGATIVE); KETONES,URINE NEGATIVE (NEGATIVE); LEUKOCYTE ESTERASE ,URINE 1+ (NEGATIVE); NITRITE,URINE NEGATIVE (NEGATIVE); PH,URINE 6 (5-9); PROTEIN,URINE 2+ (NEGATIVE); UROBILINOGEN,URINE NORMAL (NORMAL)
[2018-02-26 00:23] LABS: RBC,URINE 0-2 /HPF
[2018-02-26 00:24] LABS: BACTERIA,URINE FEW /HPF; SQUAMOUS EPITHELIAL CELL,UR 0-2 /HPF; WBC,URINE RARE /HPF
[2018-02-26 00:27] LABS: CREATINE KINASE MB 6.5 NG/ML (<6.6); MYOGLOBIN SERUM 300.5 NG/ML (10.0-92.0); TSH (THYROID ANALYZER) 1.75 UIU/ML (0.35-4.94)
[2018-02-26 00:29] LABS: AMPHETAMINE SCREEN, URINE POSITIVE (NEGATIVE); BENZODIAZEPINES SCREEN URINE NEGATIVE (NEGATIVE); CANNABINOID SCREEN, URINE POSITIVE (NEGATIVE); COCAINE SCREEN URINE NEGATIVE (NEGATIVE); METHAMPHETAMINE SCREEN URINE S POSITIVE (NEGATIVE)
[2018-02-26 00:30] LABS: ACETAMINOPHEN < 10 UG/ML (10-30)
[2018-02-26 00:30] LABS: BARBITURATE SCREEN URINE NEGATIVE (NEGATIVE); METHADONE STAT NEGATIVE (NEGATIVE); OPIATE SCREEN URINE NEGATIVE (NEGATIVE); OXYCODONE STAT NEGATIVE (NEGATIVE); PROPOXYPHENE STAT NEGATIVE (NEGATIVE); TRICYCLIC ANTIDEPRESSANTS SCRE NEGATIVE (NEGATIVE)
[2018-02-26 00:33] LABS: GLUCOSE 508 MG/DL (70-105)
[2018-02-26] MEDS ORDERED: NS IV 1000 ML 1,000 ML IV ONE ×2 (00:43→06:45)
[2018-02-26] MEDS ORDERED: inSUlin (REGULAR) HUMAN 1 UNIT/0.01 ML (CHARGE PER UNIT) ONE ×2 (01:26→02:21)
[2018-02-26] MEDS ORDERED: inSUlin (REGULAR) HUMAN 1 UNIT/0.01 ML (CHARGE PER UNIT) IV ONE (01:30)
[2018-02-26 01:36] LABS: ABG BASE EXCESS -0.5 MMOL/L (-2.5-2.5); ABG OXYGEN SATURATION 100 % (94-100); ABG PCO2 45 MMHG (35-45); ABG PH 7.35 (7.37-7.43); ABG PO2 249 MMHG (79-93); ABG TCO2 26.1 MMOL/L (21.0-31.0); ALLENS TEST POSITIVE; INSPIRED O2 80%; PATIENT TEMP 96.8; VENTILATOR YES
[2018-02-26] MEDS ORDERED: MIDAZOLAM 2 MG/2 ML (VERSED) VIAL ONE (01:36)
[2018-02-26] MEDS ORDERED: ROCURONIUM 10 MG/ML 5 ML SYRINGE IV ONE ×2 (01:43→07:37)
[2018-02-26] MEDS ORDERED: MIDAZOLAM 5 MG/5 ML (VERSED) VIAL ONE (01:47)
--- OUTSIDE RECORDS SUMMARY | 2018-02-26 02:00 | XMS REPORT | Clinical Summary ---
Author Author [facility] Organization [facility] Address Unknown Phone Unavailable Care Team Providers Care [employer] Me[employer] Supervisor Name Role Phone Self, Referral PCP Unavailable Source Comments Some departments are not documenting in the electronic medical record. If you do not see the information that you expected, contact Release of Information in the Health Information Management department at [phone] for further assistance in locating additional records.[facility] Allergies Not on File Medications Not [...]
[2018-02-26] MEDS ORDERED: PROPOFOL DRIP (ICU) 100 ML IV ONE (02:01)
--- OUTSIDE RECORDS SUMMARY | 2018-02-26 02:15 | XMS REPORT | Continuity of Care Document ---
Author Author [facility] Address Unknown Phone Unavailable Allergies Active Description [...] APRN 401.1 ESSENTIAL HYPERTENSION BENIGN 07/16/2009 [employer], ANNE M 401.1 ESSENTIAL HYPERTENSION BENIGN 07/16/2009 MELISSA FERNANDEZ APRN 401.1 ESSENTIAL HYPERTENSION BENIGN 07/16/2009 [employer], ANNE M 401.1 ESSENTIAL HYPERTENSION BENIGN 07/16/2009 [employer], ANNE M 401.1 ESSENTIAL HYPERTENSION BENIGN 09/07/2009 [...] 250.00 DIABETES MELLITUS TYPE 2 09/07/2009 REBECCA DISTRIBUTION SUPERVISOR, MELISSA T 250.00 DIABETES MELLITUS TYPE 2 [...] 250.00 DIABETES MELLITUS TYPE 2 09/07/2009 [employer], ANNE M 250.00 DIABETES MELLITUS TYPE 2 09/07/2009 REBECCA COLBY, MELISSA T 250.00 DIABETES MELLITUS TYPE 2 09/07/2009 [employer], ANNE M 250.00 DIABETES MELLITUS TYPE 2 09/07/2009 [employer], ANNE M 250.00 DIABETES MELLITUS TYPE 2 [...] T 070.54 HEPATITIS C CHRONIC 09/08/2009 [employer], ANNE M 070.54 HEPATITIS C CHRONIC 09/08/2009 MELISSA FERNANDEZ APRN T 070.54 HEPATITIS C CHRONIC 09/08/2009 [employer], ANNE M 070.54 HEPATITIS C CHRONIC 09/08/2009 [employer], ANNE M 070.54 HEPATITIS C CHRONIC 11/01/2009 465.9 UPPER RESPIRATORY INFECTION 11/01/2009 REBECCA COLBY MELISSA T 465.9 UPPER RESPIRATORY INFECTION 11/01/2009 465.9 UPPER RESPIRATORY INFECTION 11/01/2009 MELISSA FERNANDEZ APRN T 465.9 UPPER RESPIRATORY INFECTION 11/01/2009 465.9 UPPER RESPIRATORY INFECTION 11/01/2009 465.9 UPPER RESPIRATORY INFECTION 11/01/2009 MELISSA FERNNADEZ APRN T 465.9 UPPER RESPIRATORY INFECTION 11/01/2009 [...] T 465.9 UPPER RESPIRATORY INFECTION 11/01/2009 [employer], ANNE M 465.9 UPPER RESPIRATORY INFECTION 11/01/2009 MELISSA FERNANDEZ APRN T 465.9 UPPER RESPIRATORY INFECTION 11/01/2009 [employer], ANNE M 465.9 UPPER RESPIRATORY INFECTION 11/01/2009 [employer], ANNE M 465.9 UPPER RESPIRATORY INFECTION 11/25/2010 [...] MELISSA FERNANDEZ APRN 724.5 BACKACHE 11/25/2010 [employer], ANNE M 357.9 NEUROPATHY UNSP 11/25/2010 [employer], ANNE M 724.5 BACKACHE 11/25/2010 MELISSA FERNANDEZ APRN T 357.9 NEUROPATHY UNSP 11/25/2010 MELISSA FERNANDEZ APRN 724.5 BACKACHE 11/25/2010 [employer], ANNE M 357.9 NEUROPATHY UNSP 11/25/2010 [employer], ANNE M 724.5 BACKACHE 11/25/2010 [employer], ANNE M 357.9 NEUROPATHY UNSP 11/25/2010 [employer], ANNE M 724.5 BACKACHE 06/26/2011 250.42 DIABETES [...] TYPE 2 UNCONTROLLED 06/26/2011 MELISSA FERNANDEZ APRN T 250.42 DIABETES W/ RENAL MANIFESTATIONS TYPE 2 UNCONTROLLED 06/26/2011 [employer], ANNE M 250.42 DIABETES W/ RENAL MANIFESTATIONS TYPE 2 UNCONTROLLED 06/26/2011 [employer], ANNE M 250.42 DIABETES W/ RENAL MANIFESTATIONS [...] T 296.89 MO BIPOLAR II 08/05/2012 RE[employer]CCA [employer] SUPERVISOR, MELISSA T V58.69 MEDICATION HIGH RISK 08/05/2012 TRAY DUMONT MD 296.89 MO BIPOLAR II 08/05/2012 TRAY DUMONT MD V58.69 MEDICATION HIGH RISK 08/05/2012 REBECCA COLBY, MELISSA T 296.89 MO BIPOLAR II 08/05/2012 REBECCA COLBY, MELISSA T V58.69 MEDICATION HIGH RISK 08/05/2012 [employer], ANNE M 296.89 MO BIPOLAR II 08/05/2012 [employer], ANNE M V58.69 MEDICATION HIGH RISK 08/05/2012 REBECCA ALMARAZN, MELISSA T 296.89 MO BIPOLAR II 08/05/2012 REBECCA ALMARAZN, MELISSA T V58.69 MEDICATION HIGH RISK 08/05/2012 [employer], ANNE M 296.89 MO BIPOLAR II 08/05/2012 [employer], ANNE M V58.69 MEDICATION HIGH RISK 08/05/2012 [employer], ANNE M 296.89 MO BIPOLAR II 08/05/2012 [employer], ANNE M V58.69 MEDICATION HIGH RISK 06/03/2013 [...] 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 06/10/2013 TRAY DUMONT MD Ot 250.00 DIAB MONICA WO COMPL, [...] TRAY DUMONT MD 275.41 HYPOCALCEMIA 06/18/2013 TRAY DUOMNT MD 276.8 HYPOKALEMIA 06/18/2013 TRAY DUMONT MD 786.50 CHEST PAIN 06/18/2013 MELISSA FERNANDEZ APRN T 275.41 HYPOCALCEMIA 06/18/2013 MELISSA FERNANDEZ APRN T 276.8 HYPOKALEMIA 06/18/2013 REBECCA COLBY, MELISSA T 786.50 CHEST PAIN 06/18/2013 [employer], ANNE M 275.41 HYPOCALCEMIA 06/18/2013 [employer], ANNE M 276.8 HYPOKALEMIA 06/18/2013 [employer], ANNE M 786.50 CHEST PAIN 06/18/2013 MELISSA FERNANDEZ APRN T 275.41 HYPOCALCEMIA 06/18/2013 MELISSA FERNANDEZ APRN T 276.8 HYPOKALEMIA 06/18/2013 MELISSA FERNANDEZ APRN T 786.50 CHEST PAIN 06/18/2013 [employer], ANNE M 275.41 HYPOCALCEMIA 06/18/2013 [employer], ANNE M 276.8 HYPOKALEMIA 06/18/2013 [employer], ANNE M 786.50 CHEST PAIN 06/18/2013 [employer], ANNE M 275.41 HYPOCALCEMIA 06/18/2013 [employer], ANNE M 276.8 HYPOKALEMIA 06/18/2013 [employer], ANNE M 786.50 CHEST PAIN 10/05/2013 SHANNAN [...] MELISSA FERNANDEZ APRN 780.39 SEIZURES OTHER 10/10/2013 TRAY [...] M 300.02 AN GEN ANXIETY 04/03/2014 ANNE QUINNOES M 314.00 ADHD INATTENTIVE 04/03/2014 MELISSA FERNANDEZ [...] DISTURBANCES 10/02/2016 KEVIN WEEKS MD Ot 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 ADMINISTRATIVE ASSISTANT (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 OF INSULIN 10/02/2016 KEVIN WEEKS MD Ot Z79.82 CUSTODIAL (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 OF ASPIRIN 10/02/2016 KEVIN WEEKS MD Ot Z79.84 FIELD ADMINISTRATIVE ASSISTANT (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 OF ORAL HYPOGLYC 10/02/2016 KEVIN [...] CONVULSIONS 10/02/2016 ARASH AHN MD Ot Z79.4 FIELD ADMINISTRATIVE ASSISTANT (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 OF INSULIN 10/02/2016 ARASH AHN MD Ot Z79.82 FIELD ADMINISTRATIVE ASSISTANT (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 OF ASPIRIN 10/02/2016 ARASH AHN MD Ot Z79.84 FIELD ADMINISTRATIVE ASSISTANT (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 OF ORAL HYPOGLYC 10/02/2016 ARASH [...] DISORDER 10/04/2016 KEVIN WEEKS MD Ot G40.109 [facility] SYMPTC EPI W SIMP PRT SEIZ,NOT 10/04/2016 KEVIN WEEKS MD Ot I10 ESSENTIAL (PRIMARY) HYPERTENSION 10/04/2016 KEVIN WEEKS MD Ot R47.9 UNSPECIFIED SPEECH DISTURBANCES 10/04/2016 KEVIN WEEKS MD Ot Z79.4 CUSTODIAL (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 OF INSULIN 10/04/2016 KEVIN WEEKS MD Ot Z79.82 CUSTODIAL (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 OF ASPIRIN 10/04/2016 KEVIN WEEKS MD Ot Z79.84 FIELD ADMINISTRATIVE ASSISTANT (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 OF ORAL HYPOGLYC 10/04/2016 KEVIN [...] TOBACCO SMO 12/18/2017 MARKO WILLINGHAMIS Ot Z79.4 CUSTODIAL (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 OF INSULIN 12/18/2017 MARKO WILLINGHAMIS Ot Z79.82 FIELD ADMINISTRATIVE ASSISTANT (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 OF ASPIRIN 12/18/2017 MARKO WILLINGHAMIS [...] TOBACCO SMO 12/20/2017 MARKO WILLINGHAMIS Ot Z79.4 CUSTODIAL (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 OF INSULIN 12/20/2017 TARSHA JENNI Ot Z79.82 CUSTODIAL (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 OF ASPIRIN 12/20/2017 TARSHA JENNI [...] TOBACCO SMO 12/20/2017 JENNI WILLINGHAM Ot Z79.4 FIELD ADMINISTRATIVE ASSISTANT (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 OF INSULIN 12/20/2017 JENNI WILLINGHAM Ot Z79.82 CUSTODIAL (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 OF ASPIRIN 12/20/2017 JENNI WILLINGHAM Ot Z82.49 FAMILY HX OF ISCHEM HEART DIS AND OTH DI 12/20/2017 JENNI WILLINGHAM Ot Z86.73 PRSNL HX OF TIA (TIA), AND CEREB INFRC W 01/03/2018 NWNATALIIA HOUSTON O DISTRIBUTION SUPERVISOR Ot S62.92XA UNSP FRACTURE OF LEFT WRIST AND HAND, IN 01/03/2018 NWIRLANDA HOUSTONDORE O DISTRIBUTION SUPERVISOR Ot X58.XXXA EXPOSURE TO OTHER SPECIFIED FACTORS, INI 01/03/2018 NWCORINNE HOUSTONRE O DISTRIBUTION SUPERVISOR Ot Z53.1 PROC/TRTMT NOT CRD OUT BEC PT BELIEF AND Procedures Code Description [place] [address] A1C (IN-HOUSE) 03/22/2012 12773 ROUTINE VENIPUNCTURE 03/29/2012 96680 URINE DRUG SCREEN (IN-HOUSE ) 03/29/2012 43726 MICRO ALBUMIN-IN HOUSE 03/29/2012 88584 CBC 03/29/2012 81525 CMP 03/29/2012 13796 LIPID PANEL 03/29/2012 7394384 GFR CALC (RESULT ONLY) 03/29/2012 52480 A1C (IN-HOUSE) 07/05/2012 [facility] 07/05/2012 54090 A1C (IN-HOUSE) 04/25/2013 05223 MICRO ALBUMIN-IN HOUSE 10/10/2013 68753 EEG 10/10/2013 28488 A1C (IN-HOUSE) 10/10/2013 64551 PSYCH DIAG EVAL W/MED SRVCS 04/04/2014 73173 ROUTINE VENIPUNCTURE 04/08/2014 99679 CBC 04/08/2014 06582 CMP 04/08/2014 35268 LIPID PANEL 04/08/2014 [id number] GFR CALC (RESULT ONLY) 04/08/2014 99240 HEP C PCR QUANT (SERIAL) 04/08/2014 Results [...] measurement by glucometer (mass/volume) 308 mg/dL 70-110 Complete blood count (CBC) with automated white blood cell (WBC) differential - 02/25/18 23:35 Blood leukocytes automated count (number/volume) 12.9 10*3/uL 4.3-11.0 Blood erythrocytes automated count (number/volume) 5.38 10*6/uL 4.35-5.85 Venous blood hemoglobin measurement (mass/volume) 16.2 g/dL 13.3-17.7 Blood hematocrit (volume fraction) 46 % 40-54 Automated erythrocyte mean corpuscular volume 86 [foz_us] 80-99 Automated erythrocyte mean corpuscular hemoglobin (mass per erythrocyte) 30 pg 25-34 Automated erythrocyte mean corpuscular hemoglobin concentration measurement ( mass/volume) 35 g/dL 32-36 Automated erythrocyte distribution width ratio 12.8 % 10.0-14.5 Automated blood platelet count (count/volume) 420 10*3/uL 130-400 Automated blood platelet mean volume measurement 10.4 [foz_us] 7.4-10.4 Automated blood neutrophils/100 leukocytes 70 % 42-75 Automated blood lymphocytes/100 leukocytes 23 % 12-44 Blood monocytes/100 leukocytes 5 % 0-12 Automated blood eosinophils/100 leukocytes 2 % 0-10 Automated blood basophils/100 leukocytes 1 % 0-10 Blood neutrophils automated count (number/volume) 9.0 10*3 1.8-7.8 Blood lymphocytes automated count (number/volume) 2.9 10*3 1.0-4.0 Blood monocytes automated count (number/volume) 0.6 10*3 0.0-1.0 Automated eosinophil count 0.3 10*3/uL 0.0-0.3 Automated blood basophil count (count/volume) 0.1 10*3/uL 0.0-0.1 Capillary blood glucose measurement by glucometer (mass/volume) - 02/25/18 23: 35 Capillary blood glucose measurement by glucometer (mass/volume) 445 mg/dL 70-110 PT panel in platelet poor plasma by coagulation assay - 02/25/18 23:35 Prothrombin time (PT) in platelet poor plasma by coagulation assay 13.0 s 12.2-14.7 INR in platelet poor plasma or blood by coagulation assay 1.0 0.8-1.4 Activated partial thromboplastin time (aPTT) in platelet poor plasma bycoagulation assay - 02/25/18 23:35 Activated partial thromboplastin time (aPTT) in platelet poor plasma bycoagulation assay 22 s 24-35 Comprehensive metabolic panel - 02/25/18 23:35 Serum or plasma sodium measurement (moles/volume) 137 mmol/L 135-145 Serum or plasma potassium measurement (moles/volume) 4.0 mmol/L 3.6-5.0 Serum or plasma chloride measurement (moles/volume) 99 mmol/L 98-107 Carbon dioxide 10 mmol/L 21-32 Serum or plasma anion gap determination (moles/volume) 28 mmol/L 5-14 Serum or plasma urea nitrogen measurement (mass/volume) 20 mg/dL 7-18 Serum or plasma creatinine measurement (mass/volume) 1.69 mg/dL 0.60-1.30 Serum or plasma urea nitrogen/creatinine mass ratio 12 NRG Serum or plasma creatinine measurement with calculation of estimated glomerular filtration rate 42 NRG Serum or plasma glucose measurement (mass/volume) 508 mg/dL 70-105 Serum or plasma calcium measurement (mass/volume) 9.6 mg/dL 8.5-10.1 Serum or plasma total bilirubin measurement (mass/volume) 0.2 mg/dL 0.1-1.0 Serum or plasma alkaline phosphatase measurement (enzymatic activity/volume) 128 U/L 40-136 Serum or plasma aspartate aminotransferase measurement (enzymatic activity/ volume) 18 U/L 5-34 Serum or plasma alanine aminotransferase measurement (enzymatic activity/volume ) 33 U/L 0-55 Serum or plasma protein measurement (mass/volume) 6.6 g/dL 6.4-8.2 Serum or plasma albumin measurement (mass/volume) 3.9 g/dL 3.2-4.5 CALCIUM CORRECTED 9.7 mg/dL 8.5-10.1 Magnesium - 02/25/18: Magnesium 2.3 mg/dL 1.8-2.4 Serum or plasma creatine kinase measurement (enzymatic activity/volume) - 02/25: Serum or plasma creatine kinase measurement (enzymatic activity/volume) 160 U/L 30-200 Serum or plasma creatine kinase MB measurement (enzymatic activity/volume) - : Serum or plasma creatine kinase MB measurement (enzymatic activity/volume) 6.5 ng/mL <6.6 Serum or plasma troponin i.cardiac measurement (mass/volume) - 02/25/18 Serum or plasma troponin i.cardiac measurement (mass/volume) < ng/ mL <0.30 Serum or plasma lithium measurement (moles/volume) - 02/25/18 BNP level 21.9 pg/mL <100.0 Myoglobin, serum - 02/25/18: Myoglobin, serum 300.5 ng/mL 10.0-92.0 Serum or plasma amylase measurement (enzymatic activity/volume) - 02/25/18: Serum or plasma amylase measurement (enzymatic activity/volume) 160 U/L 25-125 Lipase - 02/25/18: Lipase 326 U/L 8-78 Serum or plasma thyrotropin measurement by detection limit <=0.05 miu/l (units/ volume) - 02/25/18 Serum or plasma thyrotropin measurement by detection limit <=0.05 miu/l (units/ volume) 1.75 u[iU]/mL 0.35-4.94 Serum or plasma acetaminophen measurement (mass/volume) - 02/25/18 23: Serum or plasma acetaminophen measurement (mass/volume) < ug/mL 10-30 Serum or plasma ethanol measurement (mass/volume) - 02/25/18 Serum or plasma ethanol measurement (mass/volume) < mg/dL <10 Blood lactic acid measurement (moles/volume) - 02/25/18: Blood lactic acid measurement (moles/volume) > mmol/L 0.50-2.00 Arterial blood gas measurement - 02/25/18 23:45 Blood pCO2 46 mm[Hg] 35-45 Blood pO2 105 mm[Hg] 79-93 Arterial blood bicarbonate measurement (moles/volume) 11 mmol/L 23-27 Arterial blood base excess by calculation -17.9 mmol/L - 2.5-2.5 Arterial blood oxygen saturation measurement 95 % 94-100 * Inhaled oxygen flow rate 10 NRG Arterial blood pH measurement with patient temperature correction 7.01 7.37-7.43 Arterial blood carbon dioxide, total measurement (moles/volume) 12.6 mmol/L 21.0-31.0 Body site LEFT RADIAL NRG Assessment of wrist artery patency prior to arterial puncture POSITIVE NRG Setting of ventilation mode NO NRG Measurement of body temperature 96.9 NRG Complete urinalysis with reflex to culture - 02/25/18 23:50 Urine color determination YELLOW NRG Urine clarity determination CLEAR NRG Urine pH measurement by test strip 6 5-9 Specific gravity of urine by test strip 1.010 1.016- 1.022 Urine protein assay by test strip, semi-quantitative 2+ NEGATIVE Urine glucose detection by automated test strip 4+ NEGATIVE Erythrocytes detection in urine sediment by light microscopy 1+ NEGATIVE Urine ketones detection by automated test strip NEGATIVE NEGATIVE Urine nitrite detection by test strip NEGATIVE NEGATIVE Urine total bilirubin detection by test strip NEGATIVE NEGATIVE Urine urobilinogen measurement by automated test strip (mass/volume) NORMAL NORMAL Urine leukocyte esterase detection by dipstick 1+ NEGATIVE Automated urine sediment erythrocyte count by microscopy (number/high power field) [HPF] NRG Automated urine sediment leukocyte count by microscopy (number/high power field ) RARE NRG Bacteria detection in urine sediment by light microscopy FEW NRG Squamous epithelial cells detection in urine sediment by light microscopy 0-2 NRG Crystals detection in urine sediment by light microscopy NONE NRG Casts detection in urine sediment by light microscopy NONE NRG Mucus detection in urine sediment by light microscopy NEGATIVE NRG Complete urinalysis with reflex to culture NO NRG Urine drug screening test - 02/25/18 23:50 Urine phencyclidine detection by screening method NEGATIVE NEGATIVE Urine benzodiazepines detection by screening method NEGATIVE NEGATIVE Urine cocaine detection NEGATIVE NEGATIVE Urine amphetamines detection by screening method POSITIVE NEGATIVE Urine methamphetamine detection by screening method POSITIVE NEGATIVE Urine cannabinoids detection by screening method POSITIVE NEGATIVE Urine opiates detection by screening method NEGATIVE NEGATIVE Urine barbiturates detection NEGATIVE NEGATIVE Screening urine tricyclic antidepressants detection NEGATIVE NEGATIVE Urine methadone detection by screening method NEGATIVE NEGATIVE Urine oxycodone detection NEGATIVE NEGATIVE Urine propoxyphene detection NEGATIVE NEGATIVE Ammonia - 02/26/18 00:05 Ammonia 38 umol/L 11-32 Arterial blood gas measurement - 02/26/18 01:25 Blood pCO2 45 mm[Hg] 35-45 Blood pO2 249 mm[Hg] 79-93 Arterial blood bicarbonate measurement (moles/volume) 25 mmol/L 23-27 Arterial blood base excess by calculation -0.5 mmol/L - 2.5-2.5 Arterial blood oxygen saturation measurement 100 % 94- 100 * Inhaled oxygen flow rate 80% NRG Arterial blood pH measurement with patient temperature correction 7.35 7.37-7.43 Arterial blood carbon dioxide, total measurement (moles/volume) 26.1 mmol/L 21.0-31.0 Body site L RADIAL NRG Assessment of wrist artery patency prior to arterial puncture POSITIVE NRG Setting of ventilation mode YES NRG Measurement of body temperature 96.8 NRG Encounters ACCT No. Visit Date/Time Discharge Status Pt. Type Provider Facility Loc./Unit Complaint [id number] 07/03/2014 12:50:00 07/03/2014 23:59:59 [facility] Outpatient ANNE QUINONES [id number] 04/08/2014 12:29:00 04/08/2014 23:59:59 [facility] Outpatient MELISSA FERNANDEZ APRN [id number] 04/03/2014 07:48:00 04/03/2014 23:59:59 [facility] Outpatient ANNE QUINONES [id number] 04/03/2014 07:48:00 04/03/2014 23:59:59 [facility] Outpatient ANNE QUINONES [id number] 01/07/2014 11:52:00 01/07/2014 23:59:59 [facility] Outpatient MELISSA FERNANDEZ APRN [id number] 10/31/2013 12:28:00 10/31/2013 23:59:59 [facility] Outpatient MELISSA FERNANDEZ APRN [id number] 10/10/2013 11:23:00 10/10/2013 23:59:59 [facility] Outpatient MELISSA FERNANDEZ APRN [id number] 07/16/2013 14:11:00 07/16/2013 23:59:59 [facility] Outpatient MELISSA FERNANDEZ APRN [id number] 06/24/2013 10:07:00 06/24/2013 23:59:59 [facility] Outpatient TRAY DUMONT MD [id number] 06/24/2013 10:07:00 06/24/2013 23:59:59 [facility] Outpatient TRAY DUMONT MD [id number] 06/18/2013 12:34:00 06/18/2013 23:59:59 [facility] Outpatient REBECCA ALMARAZNMELISSA [id number] 06/03/2013 13:41:00 06/03/2013 23:59:59 [facility] Outpatient SHANNAN DHILLON MD [id number] 04/25/2013 15:50:00 04/25/2013 23:59:59 CLS Outpatient TRAY DUMONT MD [id number] 04/25/2013 15:50:00 04/25/2013 23:59:59 [facility] Outpatient REBECCA ALMARAZNMELISSA [id number] 12/13/2012 11:39:00 12/13/2012 23:59:59 [facility] Outpatient REBECCA ALMARAZBonilla MELISSA Villavicencio [id number] 10/14/2012 11:24:00 10/14/2012 23:59:59 [facility] Outpatient MELISSA FERNANDEZ APRN [id number] 03/29/2012 10:12:00 03/29/2012 23:59:59 [facility] Outpatient MELISSA FERNANDEZ APRN [id number] 03/22/2012 12:34:00 03/22/2012 23:59:59 [facility] Outpatient [id number] 09/06/2011 11:19:00 09/06/2011 23:59:59 [facility] Outpatient [id number] 09/06/2011 11:19:00 09/06/2011 23:59:59 [facility] Outpatient MELISSA FERNANDEZ APRN [id number] 08/05/2012 10:50:00 Document Registration [id number] 07/05/2012 08:53:00 Document Registration [id number] 07/20/2017 13:20:00 07/20/2017 23:59:59 [facility] Outpatient REBECCA ALMARAZNMELISSA Saud [facility] [id number] 01/01/2018 12:19:00 01/01/2018 23:59:59 [facility] Outpatient NATALIIA FLETCHER APRN [facility] RAD ACUTE PAIN OF LEFT WRIST [id number] 12/18/2017 21:53:00 12/18/2017 23:10:00 DIS Emergency JENNI WILLINGHAM [facility] ER CUT HAND BLEEDING [id number] 10/02/2016 22:43:00 10/02/2016 23:57:00 DIS Emergency ANABELLE MOORE, ARASH Blackwood [facility] ER SEIZURE [id number] 10/02/2016 13:55:00 10/02/2016 17:20:00 DIS Emergency DESI MOORE, KEVIN Villavicencio [facility] ER CONFUSION [id number] 12/05/2013 16:26:00 12/05/2013 18:27:00 DIS Emergency LIAN MOORE, ALEXANDRE Guzman [facility] ER CP [id number] 09/30/2013 19:50:00 10/05/2013 15:31:00 DIS Inpatient JACQUIE MOORE, SHANNAN Crystal [facility] 4TH HYPERGLYCEMIA,WEAKNESS [id number] 06/09/2013 14:52:00 06/10/2013 16:40:00 DIS Inpatient JULIA MOORE, TRAY Jeff [facility] CSD CHEST PAIN [id number] 02/25/2018 23:49:00 Document Registration
[2018-02-26] MEDS ORDERED: 1/2 NS IV SOLUTION 1,000 ML IV ONE (02:20)
[2018-02-26] MEDS ORDERED: NORMAL SALINE 250 ML ONE (02:21)
[2018-02-26] MEDS: PROPOFOL DRIP (ICU) 100 ML IV SCH ×6 (02:30→23:56)
[2018-02-26 02:59] LABS: BASOPHILS % (AUTO) 0 % (0-10); EOSINOPHILS % (AUTO) 0 % (0-10); HEMATOCRIT 44 % (40-54); HEMOGLOBIN 15.3 G/DL (13.3-17.7); LYMPHOCYTES # (AUTO) 0.7 X 10^3 (1.0-4.0); LYMPHOCYTES % (AUTO) 4 % (12-44); MEAN CORPUSCULAR HEMOGLOBIN 30 PG (25-34); MEAN CORPUSCULAR HGB CONC 35 G/DL (32-36); MEAN CORPUSCULAR VOLUME 85 FL (80-99); MEAN PLATELET VOLUME 10.2 FL (7.4-10.4); MONOCYTES # (AUTO) 0.7 X 10^3 (0.0-1.0); MONOCYTES % (AUTO) 4 % (0-12); NEUTROPHILS # (AUTO) 16.7 X 10^3 (1.8-7.8); NEUTROPHILS % (AUTO) 92 % (42-75); PLATELET COUNT 294 10^3/uL (130-400); RED BLOOD COUNT 5.15 10^6/uL (4.35-5.85); RED CELL DISTRIBUTION WIDTH 12.8 % (10.0-14.5); WHITE BLOOD COUNT 18.1 10^3/uL (4.3-11.0)
[2018-02-26] MEDS ORDERED: morphine INJ 4 MG/ML 1 ML (VIAL/SYRINGE) ONE (03:16)
[2018-02-26 03:20] LABS: CALCIUM 9.2 MG/DL (8.5-10.1); CREATININE SERUM 1.59 MG/DL (0.60-1.30); MAGNESIUM 2.2 MG/DL (1.8-2.4); PHOSPHORUS 2.4 MG/DL (2.3-4.7); POTASSIUM 4.2 MMOL/L (3.6-5.0)
[2018-02-26] MEDS: morphine INJ 4 MG/ML 1 ML (VIAL/SYRINGE) IV PRN ×3 (03:20→17:11)
[2018-02-26] MEDS ORDERED: NS IV 1000 ML X 1 WIDE OPEN IV ONE (03:30)
[2018-02-26] MEDS ORDERED: 1/2 NS IV SOLUTION 1,000 ML IV SCH (03:30)
[2018-02-26] MEDS ORDERED: DEXTROSE 10% IV SOLUTION 1,000 ML IV SCH (03:30)
[2018-02-26] MEDS ORDERED: D5 1/2 NS W/KCL 20 MEQ/L 1,000 ML IV SCH (03:30)
[2018-02-26] MEDS ORDERED: 1/2 NS W/KCL 20 MEQ/L 1,000 ML IV SCH (03:30)
[2018-02-26] MEDS ORDERED: REGULAR inSUlin DRIP 250 UNITS/NS 250 ML IV SCH ×2 (03:30)
[2018-02-26] MEDS: D5 1/2 NS IV 1,000 ML IV SCH ×2 (03:30→06:04)
[2018-02-26 04:32] LABS: LYMPHOCYTES % (MANUAL) 4 %; MONOCYTES % (MANUAL) 2 %; NEUTROPHILS % (MANUAL) 94 %; TOXIC GRANULATION/VACUOLAZATIO 2+
[2018-02-26] MEDS ORDERED: POTASSIUM CL 10 MEQ/50 ML IVPB (PRE-MIX) IV SCH (04:45)
--- NOTE | 2018-02-26 05:08 | Pulmonary Consultation ---
SANDRO CORMIER MED STUDENT 02/26/18 0507: History of Present Illness History of Present Illness Date of Consultation 02/26/18 05:01 Time Seen by Provider: 05:05 Date of Admission History of Present Illness This is a 62 yo male who arrived to ED via EMS after having a seizure at home. EMS recorded his blood sugar to be in the 400's and the patient was unresponsive upon arrival. He had a second seizure while in the ED and he was having snoring respirations in his postictal state and therefore he was intubated to protect his airway and then transferred to the ICU. Allergies and Home Medications Allergies Coded Allergies: NKANo Known Allergies (Verified Allergy, Unknown, 12/18/17) Home Medications Alprazolam 1 Mg Tab, 1-2 MG PO TID PRN for ANXIETY, (Reported) TAKES 1-2 (1MG) TABLETS NEEDED FOR ANXIETY Amlodipine Besylate 5 Mg Tab, 10 MG PO DAILY @ 1200 Prescribed by: FAUSTINO LARSON on 06/10/13 1435 Amphet Asp/Amphet/D-Amphet 20 Mg Tablet, 20 MG PO DAILY PRN for NERVOUSNESS Prescribed by: ALICJA QUINTANA on 10/01/13 0334 Aspirin 325 Mg Tablet.dr, 325 MG PO DAILY PRN for HEADACHE, (Reported) NEEDED FOR HEADACHE Atorvastatin Calcium 10 Mg Tablet, 10 MG PO DAILY Prescribed by: FAUSTINO LARSON on 06/10/13 1439 Cephalexin 500 Mg Capsule, 500 MG PO BID Prescribed by: JENNI WILLINGHAM on 12/18/17 2253 Citalopram Hydrobromide 10 Mg Tablet, 10 MG PO DAILY @ 1200, (Reported) Clonazepam 2 Mg Tablet, 2 MG PO HS, (Reported) Hydrocodone Bit/Ibuprofen 1 Each Tablet, 1 TAB PO Q6H PRN for PAIN, (Reported) NEEDED FOR PAIN 7.5-200MG TABLET Insulin Detemir 100 U/Ml Vial, 46 U SQ HS, (Reported) Levetiracetam 500 Mg Tab, 750 MG PO BID Prescribed by: SHANNAN DHILLON on 10/05/13 0956 Liraglutide 0.6 Mg/0.1 Ml Pen.injctr, 1.8 MG SQ DAILY @ 1200, (Reported) Metformin Hcl 1,000 Mg Tablet, 500 MG PO BID, (Reported) Olmesartn/Hydrochlorothiazide 1 Tab Tablet, 1 TAB PO DAILY @ 1200, (Reported) 40-25MG TABLET Potassium Chloride 10 Meq Capcr, 10 MEQ PO DAILY@0700 Prescribed by: FAUSTINO LARSON on 06/10/13 1435 Past Pvnynsh-Wqhqyi-Jvgnla Hx Past Med/Social Hx: Reviewed Nursing Past Med/Soc Hx Patient Social History Alcohol Use: Occasionally Uses Recreational Drug Use: Yes (HAS A HX) Drug of Choice: METH Smoking Status: Current Everyday Smoker Type Used: Cigarettes 2nd Hand Smoke Exposure: Yes Recent Foreign Travel: No Contact w/Someone Who Travel: No Recent Infectious Disease Expo: No Recent Hopitalizations: No Immunizations Up To Date Tetanus Booster (TDap): More than 5yrs Date of Pneumonia Vaccine: Jun 10, 2013 Date of Influenza Vaccine: Dec 02, 2013 Seasonal Allergies Seasonal Allergies: No Past Medical History Surgeries: Yes (LIPOMA REMOVAL/LIVER BX) Respiratory: No Cardiac: Yes Hypertension Neurological: Yes Seizure Disorder, Stroke Genitourinary: No Gastrointestinal: No Hepatitis Musculoskeletal: No Endocrine: Yes Diabetes, Insulin dep HEENT: No Cancer: No Psychosocial: Yes Anxiety, Depression Integumentary: No Blood Disorders: Yes (HEPATITIS C) Adverse Reaction/Blood Tranf: No Family Medical History Reviewed Nursing Family Hx Family history: Cardiovascular disease 03 FATHER (MACKENZIE PARKINSONS SYNDROME) Family history: Hypertension 03 FATHER History of - disorder 03 MOTHER (DEPRESSION) 09 SISTER (MENTAL HEALTH ISSUES) Review of Systems Time Seen by Provider: 05:06 Other unable to obtain as patient is sedated and intubated at this time. Sepsis Event Evaluation Height, Weight, BMI Height: 6'2.00" Weight: 235lbs. 0.3oz. 106.801529fz; 27.73 BMI Method:Estimated Exam Exam Vital Signs Date Time Temp Pulse Resp B/P (MAP) Pulse Ox O2 Delivery O2 Flow Rate FiO2 02/26/18 04:12 92 16 98 50 02/26/18 02:30 98 Mechanical Ventilator 50 02/26/18 02:22 103 16 96 50 02/26/18 02:14 97.5 113 16 146/107 (120) 98 Mechanical Ventilator 50.00 02/26/18 00:42 103 16 100 100 02/25/18 23:31 97 OxyMask 10.00 02/25/18 23:30 97.3 114 20 112/63 (79) 94 Nasal Cannula 2.00 Height & Weight Height: 6'2.00" Weight: 235lbs. 0.3oz. 106.360100zq; 27.73 BMI Method:Estimated General Appearance: Other (intubated) HEENT: Pharynx Normal, Moist Mucous Membranes Neck: Normal Inspection, Supple Respiratory: Lungs Clear, Respiratory Distress (intubated) Cardiovascular: Regular Rate, Rhythm Capillary Refill: Less Than 3 Seconds Neurologic/Psychiatric: Other (sedated) Skin: Normal Color, Warm/Dry Results Lab Laboratory Tests 02/25/18 23:35 02/26/18 02:50 Assessment/Plan Assessment/Plan DKA -insulin drip -IVF Postictal -levetiracetam MEGAN -IVF -monitor closely -improving Leukocytosis -afebrile, no obvious sign of infection -continue to monitor Intubated -Propofol for sedation -consider extubation today JOYCE JAMES DO 02/26/18 0549: History of Present Illness History of Present Illness Time Seen by Provider: 05:42 History of Present Illness 62yo with hx of seizures and drug use presented to the ED secondary to acute seizures while at home. Upon ED arrival pt had another seizure and was intubated for airway protection. Pt was also found to have a BS of 400. Urine ketones are negative. Lactic acid was > 13. UDS is positive for methamphetamines and marijuana Pt is currently intubated and sedated. I am not able to obtain any information from patient. Family is not at bedside currently. Allergies and Home Medications Allergies Coded Allergies: NKANo Known Allergies (Verified Allergy, Unknown, 12/18/17) Home Medications Alprazolam 1 Mg Tab, 1-2 MG PO TID PRN for ANXIETY, (Reported) TAKES 1-2 (1MG) TABLETS NEEDED FOR ANXIETY Amlodipine Besylate 5 Mg Tab, 10 MG PO DAILY @ 1200 Prescribed by: FAUSTINO LARSON on 06/10/13 1435 Amphet Asp/Amphet/D-Amphet 20 Mg Tablet, 20 MG PO DAILY PRN for NERVOUSNESS Prescribed by: ALICJA QUINTANA on 10/01/13 0334 Aspirin 325 Mg Tablet.dr, 325 MG PO DAILY PRN for HEADACHE, (Reported) NEEDED FOR HEADACHE Atorvastatin Calcium 10 Mg Tablet, 10 MG PO DAILY Prescribed by: FAUSTINO LARSON on 06/10/13 1439 Cephalexin 500 Mg Capsule, 500 MG PO BID Prescribed by: JENNI WILLINGHAM on 12/18/17 2253 Citalopram Hydrobromide 10 Mg Tablet, 10 MG PO DAILY @ 1200, (Reported) Clonazepam 2 Mg Tablet, 2 MG PO HS, (Reported) Hydrocodone Bit/Ibuprofen 1 Each Tablet, 1 TAB PO Q6H PRN for PAIN, (Reported) NEEDED FOR PAIN 7.5-200MG TABLET Insulin Detemir 100 U/Ml Vial, 46 U SQ HS, (Reported) Levetiracetam 500 Mg Tab, 750 MG PO BID Prescribed by: SHANNAN DHILLON on 10/05/13 0956 Liraglutide 0.6 Mg/0.1 Ml Pen.injctr, 1.8 MG SQ DAILY @ 1200, (Reported) Metformin Hcl 1,000 Mg Tablet, 500 MG PO BID, (Reported) Olmesartn/Hydrochlorothiazide 1 Tab Tablet, 1 TAB PO DAILY @ 1200, (Reported) 40-25MG TABLET Potassium Chloride 10 Meq Capcr, 10 MEQ PO DAILY@0700 Prescribed by: FAUSTINO LARSON on 06/10/13 1435 Past Usqxhhf-Odwvqz-Mjwybq Hx Family Medical History Family history: Cardiovascular disease 03 FATHER (MACKENZIE PARKINSONS SYNDROME) Family history: Hypertension 03 FATHER History of - disorder 03 MOTHER (DEPRESSION) 09 SISTER (MENTAL HEALTH ISSUES) Exam Exam General Appearance: Other (intubated) HEENT: Other (intubated) Respiratory: Lungs Clear, Respiratory Distress (intubated) Cardiovascular: Regular Rate, Rhythm Capillary Refill: Less Than 3 Seconds Skin: Normal Color, Warm/Dry Assessment/Plan Assessment/Plan Acute respiratory failure -Continue ventilator therapy -Decrease Vt to 550, increase RR to 21. -Repeat ABG 1 hour after change Acute seizures -Continue Keppra -seizure precautions -Ativan PRN SIRS r/o Sepsis -Start Zosyn and Vanco -Broderick cultures pending Hyperglycemia -- this is not DKA -D/C DKA protocol Pancreatitis -Check US Anion gap metabolic acidosis secondary to lactic acid -IVF -Monitor LA Severe dehydration -IVF Acute renal failure -Continue IVF -Abdominal US Drug use with methamphetamines and marijuana -Education SANDRO CORMIER STUDENT Feb 26, 2018 05:07 JOYCE JAMES DO Feb 26, 2018 05:49
[2018-02-26 05:29] LABS: ABG BASE EXCESS 2.4 MMOL/L (-2.5-2.5); ABG OXYGEN SATURATION 99 % (94-100); ABG PCO2 41 MMHG (35-45); ABG PH 7.43 (7.37-7.43); ABG PO2 112 MMHG (79-93); ABG TCO2 27.8 MMOL/L (21.0-31.0)
[2018-02-26 05:30] LABS: ALLENS TEST POSITIVE; INSPIRED O2 50%; PATIENT TEMP 97.3; VENTILATOR YES
[2018-02-26] MEDS: POTASSIUM CL 10MEQ/50ML IVPB 50 ML IV SCH (05:46)
[2018-02-26] MEDS: KCL 20 MEQ TAB (K-DUR) PO SCH (05:46)
[2018-02-26] MEDS: MAGNESIUM 1 GM/100 ML IVPB 100 ML IV SCH (05:46)
[2018-02-26] MEDS ORDERED: LACTATED RINGERS 1,000 ML IV ONE (06:23)
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
[2018-02-26] MEDS ORDERED: PHARMACY TO DOSE IV SCH (06:30)
[2018-02-26] MEDS ORDERED: PIPERACILLIN SODIUM/TAZOBACTAM 4.5 GM in NS (IVPB) 100 ML IV SCH (06:30)
[2018-02-26] MEDS: LACTATED RINGERS 1,000 ML IV SCH ×4 (06:37→19:56)
[2018-02-26] MEDS ORDERED: PIPERACILLIN/TAZO 4.5 GM/NS 100 ML IV ONE ×2 (06:45)
[2018-02-26] MEDS ORDERED: LACTATED RINGERS 1,000 ML IV SCH (07:00)
[2018-02-26] MEDS ORDERED: VANCOMYCIN 2000 MG/NS 500 ML IVPB IV NR ×2 (07:02)
--- NOTE | 2018-02-26 07:10 | Diagnostic Imaging Report ---
PROCEDURE: CT head without contrast. TECHNIQUE: Multiple contiguous axial images were obtained through the brain without the use of intravenous contrast. INDICATION: Seizure, history of stroke. Correlation study: 10/02/2016 Findings: Ventricles and sulci appear generally stable, age-appropriate. Scattered areas of decreased attenuation while nonspecific favor likely change small vessel ischemic disease. The more focal, somewhat linear area of encephalomalacia involving the right frontal lobe is again demonstrated compatible with an old area of infarct. No definitive evidence to suggest acute infarct. No intracranial hemorrhage. No midline shift or mass effect. Bony calvarium unremarkable. Paranasal sinuses appearing generally clear. IMPRESSION: 1. Stable noncontrast CT imaging of the head demonstrates no evidence for acute intracranial abnormality. 2. Findings compatible with a area of encephalomalacia involving the right frontal lobe compatible with prior area of infarct. A preliminary report was provided by [facility]. Dictated by: Dictated on workstation # [id number]
--- NOTE | 2018-02-26 07:11 | Diagnostic Imaging Report ---
INDICATION: Intubation. TECHNIQUE: Single view chest 12:35 AM. CORRELATION STUDY: 10/02/2016 FINDINGS: Endotracheal tube is present tip projects over the trachea at the level of the clavicles. Gastric tube is present likely extend to the gastroesophageal junction. Heart size, mediastinum and vasculature within normal limits. Minimal atelectasis or perhaps infiltrate left lung base. IMPRESSION: 1. Endotracheal tube present. Gastric tube present with the gastric tube tip likely at the gastroesophageal junction. 2. Minimal atelectasis or infiltrate left lung base. Dictated by: Dictated on workstation # [id number]
[2018-02-26 07:26] LABS: CALCIUM 8.1 MG/DL (8.5-10.1); CREATININE SERUM 1.57 MG/DL (0.60-1.30); POTASSIUM 4.2 MMOL/L (3.6-5.0)
--- NOTE | 2018-02-26 07:28 | Diagnostic Imaging Report ---
INDICATION: Intubation. TECHNIQUE: Single view chest 3:20 AM. CORRELATION STUDY: 02/26/2018 FINDINGS: Endotracheal tube superimposed over the trachea at the level of the clavicles. Gastric tube with its tip in left upper quadrant. Heart size and mediastinum generally stable. Small left pleural effusion persists. No significant consolidating infiltrate. Likely minimal basilar atelectasis. IMPRESSION: 1. Stable support lines and tubes. 2. Small left pleural effusion with likely mild bibasilar atelectasis. Dictated by: Dictated on workstation # [id number]
[2018-02-26] MEDS: DEXMEDETOMIDINE INJECTION 200 MCG in NS (IVPB) 50 ML IV SCH ×2 (07:30→13:13)
[2018-02-26] MEDS ORDERED: MIDAZOLAM 5 MG/5 ML (VERSED) VIAL IJ ONE (07:37)
[2018-02-26] MEDS ORDERED: SUCCINYLCHOLINE INJ 100 MG/5 ML SYR INJ ONE (07:37)
--- NOTE | 2018-02-26 08:24 | Occ Therapy Progress Note ---
Therapy Progress Note Order received for OT eval and treat. Chart review completed. Pt is intubated. Hold therapy at this time. Will continue to monitor and initiate evaluation when appropriate. YOGI MOJICA OT Feb 26, 2018 08:24
--- NOTE | 2018-02-26 08:40 | Diagnostic Imaging Report ---
INDICATION: Intubation. TECHNIQUE: Single view chest 2:51 a.m. CORRELATION STUDY: 02/26/2018. FINDINGS: Endotracheal tube remains in place over the trachea at the level of the clavicles. Gastric tube passes below the left hemidiaphragm. Heart size, mediastinum vasculature stable. Small left pleural effusion with minimal atelectasis or infiltrate in the left lung base. Minimal atelectasis in the right lung base. IMPRESSION: 1. Stable support lines and tubes. 2. Trace left pleural effusion, minimal atelectasis or infiltrate in the left lung base, minimal atelectasis in the right lung base. Dictated by: Dictated on workstation # [id number]
[2018-02-26] MEDS: PANTOPRAZOLE 40 MG (PROTONIX) VIAL IV SCH (09:00)
[2018-02-26] MEDS: LEVETIRACETAM 1,000 MG/NS 100 ML IVPB IV SCH ×4 (09:13→16:08)
[2018-02-26] MEDS: inSUlin ASPART (NovoLOG) 1 UNIT/0.01 ML (CHARGE PER UNIT) SQ SCH ×4 (09:17→20:08)
[2018-02-26 09:41] LABS: ABG BASE EXCESS 1.8 MMOL/L (-2.5-2.5); ABG OXYGEN SATURATION 99 % (94-100); ABG PCO2 37 MMHG (35-45); ABG PH 7.45 (7.37-7.43); ABG PO2 105 MMHG (79-93); ABG TCO2 26.8 MMOL/L (21.0-31.0)
[2018-02-26 09:42] LABS: ALLENS TEST ART LINE; INSPIRED O2 50%; PATIENT TEMP 96.9; VENTILATOR YES
--- NOTE | 2018-02-26 09:44 | Anesthesia-Procedure Note ---
Procedures/Interventions Procedure Start/Stop/Diagnosis Date of Procedure: Feb 26, 2018 Start Time: 09:20 Referring Physician: Valdemar Preprocedural Diagnosis: Status epilepticus Brief History Called by UNIT COORDINATOR to place A-line on pt. Brief HX obtained from chart and RN. Pt. sedated on vent with propofol. Under sterile technique place Rt radial A- line on second attempt 20g Arrow. Stong wave form present and good blood flow. Secured with sterile op site and tape. Left pt in care of RN restraint re applied. ASA3 Stop Time: 09:34 Postprocedural Diagnosis: Status epilepticus Arterial Line Arterial Line Catheter: 20G Type: Radial Location: Right Procedure: prepped, draped in sterile fashion, good wave-form was obtained, patient tolerated procedure well, no immediate complications, post procedure area cleaned, post procedure dressing applied LORI MATIAS CRNA Feb 26, 2018 09:44
--- NOTE | 2018-02-26 09:57 | Physical Therapy Progress Note ---
Therapy Progress Note Patient currently intubated and on mechanical ventilator. PT to assess when medically stable. LORIE QUEVEDO PT Feb 26, 2018 09:57
--- NOTE | 2018-02-26 10:14 | Diagnostic Imaging Report ---
INDICATION: Pancreatitis, renal failure TECHNIQUE: Multiple real-time hurtado scale sonographic images of the abdomen. CORRELATION STUDY: None FINDINGS: LIVER: Normal echotexture within the visualized portions of the liver. There is normal, hepatopedal direction of flow within the main portal vein. Liver enlarged at 20 cm. GALLBLADDER: 2.5 cm gallstone is present. Gallbladder wall upper limits normal just under 3 mm. COMMON BILE DUCT: Not well visualized. However, no findings to suggest significant bile duct dilatation. PANCREAS: Largely obscured. SPLEEN: Unremarkable. ABDOMINAL AORTA: Unremarkable. INFERIOR VENA CAVA: Limited in visualization. RIGHT KIDNEY: 11.2 cm. Unremarkable. LEFT KIDNEY: 10.5 cm. Unremarkable. OTHER: None. IMPRESSION: 1. Hepatomegaly. 2. No 2.5 cm gallstone with borderline gallbladder wall thickening. 3. Pancreas cannot be well-visualized, largely obscured. Dictated by: Dictated on workstation # [id number]
[2018-02-26] MEDS ORDERED: POTA10TA10 PO (10:34)
[2018-02-26] MEDS ORDERED: ESCI20TA45 PO (10:34)
[2018-02-26] MEDS ORDERED: ASPI-808 PO (10:34)
[2018-02-26] MEDS ORDERED: METF-399 PO (10:34)
[2018-02-26] MEDS ORDERED: INSU100I10 SC (10:34)
[2018-02-26] MEDS ORDERED: AMLO10TA6 PO (10:34)
[2018-02-26] MEDS ORDERED: OLME1TAB44 PO (10:34)
[2018-02-26] MEDS ORDERED: ATOR10TA66 PO (10:34)
[2018-02-26] MEDS ORDERED: LEVE10006 PO (10:34)
[2018-02-26 11:44] LABS: CALCIUM 7.8 MG/DL (8.5-10.1); CREATININE SERUM 1.52 MG/DL (0.60-1.30); POTASSIUM 3.6 MMOL/L (3.6-5.0)
[2018-02-26] MEDS: PIPERACILLIN/TAZO 4.5 GM/NS 100 ML IV SCH ×4 (13:11→20:09)
[2018-02-26] MEDS ORDERED: NS IV 1000 ML 1,000 ML IV SCH (15:00)
[2018-02-26 16:14] LABS: CREATININE SERUM 1.86 MG/DL (0.60-1.30); POTASSIUM 3.8 MMOL/L (3.6-5.0)
[2018-02-26] MEDS ORDERED: NOREPINEPHRINE 4 MG/4 ML (LEVOPHED) AMP IV ONE (16:24)
[2018-02-26] MEDS ORDERED: NS (IVPB) 250 ML ONE (16:24)
[2018-02-26] MEDS ORDERED: ATROPINE INJ 0.4 MG/ML SDV ONE (16:56)
[2018-02-26 17:07] LABS: BASOPHILS % (AUTO) 0 % (0-10); EOSINOPHILS % (AUTO) 0 % (0-10); HEMATOCRIT 37 % (40-54); HEMOGLOBIN 12.5 G/DL (13.3-17.7); LYMPHOCYTES # (AUTO) 0.9 X 10^3 (1.0-4.0); LYMPHOCYTES % (AUTO) 7 % (12-44); MEAN CORPUSCULAR HEMOGLOBIN 30 PG (25-34); MEAN CORPUSCULAR HGB CONC 34 G/DL (32-36); MEAN CORPUSCULAR VOLUME 88 FL (80-99); MEAN PLATELET VOLUME 10.4 FL (7.4-10.4); MONOCYTES # (AUTO) 0.8 X 10^3 (0.0-1.0); MONOCYTES % (AUTO) 6 % (0-12); NEUTROPHILS # (AUTO) 12.1 X 10^3 (1.8-7.8); NEUTROPHILS % (AUTO) 88 % (42-75); PLATELET COUNT 240 10^3/uL (130-400); RED BLOOD COUNT 4.23 10^6/uL (4.35-5.85); RED CELL DISTRIBUTION WIDTH 12.9 % (10.0-14.5); WHITE BLOOD COUNT 13.8 10^3/uL (4.3-11.0)
[2018-02-26] MEDS ORDERED: fentaNYL INJECTION 100 MCG/2 ML AMP ONE ×2 (17:15→17:21)
[2018-02-26 17:27] LABS: ALBUMIN 2.8 GM/DL (3.2-4.5); BILIRUBIN,TOTAL 0.3 MG/DL (0.1-1.0); CALCIUM 7.7 MG/DL (8.5-10.1); CREATININE SERUM 1.82 MG/DL (0.60-1.30); MAGNESIUM 1.7 MG/DL (1.8-2.4); POTASSIUM 3.9 MMOL/L (3.6-5.0); TOTAL PROTEIN 4.6 GM/DL (6.4-8.2)
[2018-02-26] MEDS ORDERED: fentaNYL INJECTION 100 MCG/2 ML AMP IV NR (17:31)
[2018-02-26 17:32] LABS: BAND NEUTROPHILS 1 %; LYMPHOCYTES % (MANUAL) 6 %; MONOCYTES % (MANUAL) 4 %; NEUTROPHILS % (MANUAL) 89 %
[2018-02-26 17:33] LABS: BASOPHILS % (MANUAL) 0 %; EOSINOPHILS % (MANUAL) 0 %; RBC MORPH NORMAL
[2018-02-26] MEDS ORDERED: fentaNYL INJECTION 100 MCG/2 ML AMP IV PRN (17:45)
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
--- NOTE | 2018-02-26 18:31 | Consultation-Cardiology ---
HPI-Cardiology Cardiology Consultation: Date of Consultation 02/26/18 Time Seen by a Provider: 18:20 Date of Admission Attending Physician Mirian Aldrich MD Admitting Physician [facility] Consulting Physician ELBA BALDERAS MD, MA, FACP, FAC, [facility], [facility] Physician requesting consult: Dr Gilliam HPI: Chief Complaint: Reason for consultation: Transient bradycardia HPI: 62 yo whom we have been asked to see for an episode of bradycardia (heart rate in the 40s) and some question of transient atrial flutter with vent response in the 60s. He is currently intubated and on mech vent. Precedex had been stopped shortly prior to bradycardia. It was stopped for low bp. Currently on low dose Levophed with good bp. History is obtained from hosp records and some [facility] members present Apparently, admitted with seizures and DKA. Intubated for airway protection. Had not been reporting cp prior to presentation. Has a h/o stroke and possible MS (based on ECGs, according to the [facility]) Review of Systems-Cardiology Review of Systems Constitutional: other (A review of systems is not possible because of patient' s intubated state) [id number]-Jdxzko Hx Patient Social History Alcohol Use: Occasionally Uses (HISTORY OF ABUSE) Recreational Drug Use: Yes (METH USE) Drug of Choice: METH Smoking Status: Current Everyday Smoker (1 PPD) Type Used: Cigarettes 2nd Hand Smoke Exposure: Yes Recent Foreign Travel: No Recent Infectious Disease Expo: No Hospitalization with Isolation: Unknown Physical Abuse Screen: No Sexual Abuse: No Immunizations Up To Date Tetanus Booster (TDap): More than 5yrs Date of Pneumonia Vaccine: Jun 10, 2013 Date of Influenza Vaccine: Dec 02, 2013 Past Medical History PMH As described under Assessment. Family Medical History Family History: Family history: Cardiovascular disease 03 FATHER (MACKENZIE PARKINSONS SYNDROME) Family history: Hypertension 03 FATHER History of - disorder 03 MOTHER (DEPRESSION) 09 SISTER (MENTAL HEALTH ISSUES) Allergies and Home Medications Allergies Coded Allergies: NKANo Known Allergies (Verified Allergy, Unknown, 12/18/17) Home Medications Amlodipine Besylate 10 Mg Tablet, 10 MG PO DAILY, (Reported) Aspirin 325 Mg Tablet, 325 MG PO DAILY, (Reported) Atorvastatin Calcium 10 Mg Tablet, 10 MG PO DAILY, (Reported) Escitalopram Oxalate 20 Mg Tablet, 20 MG PO DAILY, (Reported) Insulin Glargine,Hum.rec.anlog 100 Unit/1 Ml Insuln.pen, 42 UNITS SC BID, ( Reported) Levetiracetam 1,000 Mg Tablet, 1,000 MG PO BID, (Reported) LAST FILLED #60 10-22-17 Metformin HCl 1,000 Mg Tablet, 1,000 MG PO BID, (Reported) Olmesartan/Hydrochlorothiazide 1 Each Tablet, 1 TAB PO DAILY, (Reported) Potassium Chloride 10 Meq Tablet.er, 10 MEQ PO DAILY, (Reported) Patient Home Medication List Home Medication List Reviewed: Yes Physical Exam-Cardiology Physical Exam Vital Signs/I&O 02/26/18 02/26/18 02/26/18 02/26/18 06:34 06:56 07:00 07:00 Pulse 89 85 85 Resp 21 20 B/P (MAP) 111/77 97/71 (80) Pulse Ox 100 100 O2 Delivery Mechanical Ventilator O2 Flow Rate 50.00 FiO2 50 02/26/18 02/26/18 02/26/18 02/26/18 07:00 08:00 08:00 08:00 Temp 96.8 Pulse 86 Resp 20 B/P (MAP) 113/77 (89) Pulse Ox 98 100 O2 Delivery Mechanical Ventilator Mechanical Ventilator Mechanical Ventilator O2 Flow Rate 50.00 50.00 02/26/18 02/26/18 02/26/18 02/26/18 09:00 09:51 10:00 10:35 Pulse 87 85 80 81 Resp 28 21 29 21 B/P (MAP) 128/77 (94) Pulse Ox 100 100 100 100 O2 Delivery Mechanical Ventilator Mechanical Ventilator O2 Flow Rate 50.00 50.00 FiO2 50 50 02/26/18 02/26/18 02/26/18 02/26/18 11:00 12:00 12:00 12:16 Temp 96.9 Pulse 76 70 Resp 21 21 B/P (MAP) 134/71 (92) Pulse Ox 100 98 98 O2 Delivery Mechanical Ventilator Mechanical Ventilator O2 Flow Rate 50.00 30.00 FiO2 40 02/26/18 02/26/18 02/26/18 02/26/18 13:00 13:00 13:14 13:30 Pulse 62 62 63 Resp 21 20 B/P (MAP) 105/62 (76) 105/62 (76) Pulse Ox 97 97 O2 Delivery Mechanical Ventilator Mechanical Ventilator Mechanical Ventilator O2 Flow Rate 30.00 30.00 02/26/18 02/26/18 02/26/18 02/26/18 14:00 14:28 14:30 14:46 Pulse 61 60 62 Resp 21 21 20 B/P (MAP) 123/65 (84) 135/70 (91) Pulse Ox 97 97 97 O2 Delivery Mechanical Ventilator Mechanical Ventilator Mechanical Ventilator O2 Flow Rate 30.00 30.00 21.00 FiO2 30 02/26/18 02/26/18 02/26/18 02/26/18 15:00 15:30 16:00 16:23 Pulse 60 60 60 59 Resp 21 20 21 21 B/P (MAP) /62 114/62 (79) 113/62 (79) 110/60 (77) Pulse Ox 93 94 95 93 O2 Delivery Mechanical Ventilator Mechanical Ventilator Mechanical Ventilator O2 Flow Rate 21.00 21.00 21.00 FiO2 21 02/26/18 02/26/18 02/26/18 02/26/18 16:30 17:00 17:30 17:47 Pulse 59 56 68 66 Resp 21 28 21 B/P (MAP) 143/64 (90) 65/50 (55) 82/49 (60) Pulse Ox 94 98 93 O2 Delivery Mechanical Ventilator Mechanical Ventilator Mechanical Ventilator O2 Flow Rate 21.00 21.00 21.00 02/26/18 18:00 Pulse 66 Resp 9 B/P (MAP) 104/54 (71) Pulse Ox 93 O2 Delivery Mechanical Ventilator O2 Flow Rate 21.00 Capillary Refill : Less Than 3 SecondsLess Than 3 Seconds Constitutional: other (intubated and on mech vent) HEENT: PERRL Neck: carotid pulses are 2 + bilaterally Respiratory: other (on mech vent; good air entry bilat) Cardiovascular: regular rate-rhythm, S1 and S2, systolic murmur (soft MOLLY at card base) Gastrointestinal: No tender; soft; No guarding; rebound, audible bowel sounds Extremities: No clubbing, No cyanosis, No significant edema Neurologic/Psychiatric: other (unable to cooperate with a Neuro exam at this time) Skin: No rash on exposed areas, No ulcerations on exposed areas Lymphatic: no adenopathy (neck, axilla or groin) Data Review Labs Laboratory Tests 02/25/18 23:35: White Blood Count 12.9H, Red Blood Count 5.38, Hemoglobin 16.2, Hematocrit 46, Mean Corpuscular Volume 86, Mean Corpuscular Hemoglobin 30, Mean Corpuscular Hemoglobin Concent 35, Red Cell Distribution Width 12.8, Platelet Count 420H, Mean Platelet Volume 10.4, Neutrophils (%) (Auto) 70, Lymphocytes (%) (Auto) 23 , Monocytes (%) (Auto) 5, Eosinophils (%) (Auto) 2, Basophils (%) (Auto) 1, Neutrophils # (Auto) 9.0H, Lymphocytes # (Auto) 2.9, Monocytes # (Auto) 0.6, Eosinophils # (Auto) 0.3, Basophils # (Auto) 0.1, Prothrombin Time 13.0, INR Comment 1.0, Activated Partial Thromboplast Time 22L, Sodium Level 137, Potassium Level 4.0, Chloride Level 99, Carbon Dioxide Level 10L, Anion Gap 28H , Blood Urea Nitrogen 20H, Creatinine 1.69H, Estimat Glomerular Filtration Rate 42, BUN/Creatinine Ratio 12, Glucose Level 508*H, Glucometer 445*H, Lactic Acid Level > 13.35*H, Calcium Level 9.6, Corrected Calcium 9.7, Magnesium Level 2.3, Total Bilirubin 0.2, Aspartate Amino Transf (AST/SGOT) 18, Alanine Aminotransferase (ALT/SGPT) 33, Alkaline Phosphatase 128, Total Creatine Kinase 160, Creatine Kinase MB 6.5, Myoglobin 300.5H, Troponin I < 0.30, B-Type Natriuretic Peptide 21.9, Total Protein 6.6, Albumin 3.9, Amylase Level 160H, Lipase 326H, TSH [place] Testing 1.75, Acetaminophen Level < 10L, Serum Alcohol < 10 02/25/18 23:45: Blood Gas Puncture Site LEFT RADIAL, Blood Gas Patient Temperature 96.9, Arterial Blood pH 7.01*L, Arterial Blood Partial Pressure CO2 46H, Arterial Blood Partial Pressure O2 105H, Arterial Blood HCO3 11*L, Arterial Blood Total CO2 12.6L, Arterial Blood Oxygen Saturation 95, Arterial Blood Base Excess - 17.9L, Hamlet Test POSITIVE, Blood Gas Ventilator Setting NO, Blood Gas Inspired Oxygen 10 02/25/18 23:50: Urine Color YELLOW, Urine Clarity CLEAR, Urine pH 6, Urine Specific [place] 1.010L, Urine Protein 2+H, Urine Glucose (UA) 4+H, Urine Ketones NEGATIVE, Urine Nitrite NEGATIVE, Urine Bilirubin NEGATIVE, Urine Urobilinogen NORMAL, Urine Leukocyte Esterase 1+H, Urine RBC (Auto) 1+H, Urine RBC 0-2, Urine WBC RARE, Urine Squamous Epithelial Cells 0-2, Urine Crystals NONE, Urine Bacteria FEWH, Urine Casts NONE, Urine Mucus NEGATIVE, Urine Culture Indicated NO, Urine Opiates Screen NEGATIVE, Urine Oxycodone Screen NEGATIVE, Urine Methadone Screen NEGATIVE, Urine Propoxyphene Screen NEGATIVE, Urine Barbiturates Screen NEGATIVE, Ur Tricyclic Antidepressants Screen NEGATIVE, Urine Phencyclidine Screen NEGATIVE, Urine Amphetamines Screen POSITIVEH, Urine Methamphetamines Screen POSITIVEH, Urine Benzodiazepines Screen NEGATIVE, Urine Cocaine Screen NEGATIVE, Urine Cannabinoids Screen POSITIVEH 02/26/18 00:05: Ammonia 38H 02/26/18 01:25: Blood Gas Puncture Site L RADIAL, Blood Gas Patient Temperature 96.8, Arterial Blood pH 7.35L, Arterial Blood Partial Pressure CO2 45, Arterial Blood Partial Pressure O2 249H, Arterial Blood HCO3 25, Arterial Blood Total CO2 26.1, Arterial Blood Oxygen Saturation 100, Arterial Blood Base Excess -0.5, Hamlet Test POSITIVE, Blood Gas Ventilator Setting YES, Blood Gas Inspired Oxygen 80% 02/26/18 01:57: Glucometer 476*H 02/26/18 02:50: White Blood Count 18.1H, Red Blood Count 5.15, Hemoglobin 15.3, Hematocrit 44, Mean Corpuscular Volume 85, Mean Corpuscular Hemoglobin 30, Mean Corpuscular Hemoglobin Concent 35, Red Cell Distribution Width 12.8, Platelet Count 294, Mean Platelet Volume 10.2, Neutrophils (%) (Auto) 92H, Lymphocytes (%) (Auto) 4L , Monocytes (%) (Auto) 4, Eosinophils (%) (Auto) 0, Basophils (%) (Auto) 0, Neutrophils # (Auto) 16.7H, Lymphocytes # (Auto) 0.7L, Monocytes # (Auto) 0.7, Eosinophils # (Auto) 0.0, Basophils # (Auto) 0.0, Neutrophils % (Manual) 94, Lymphocytes % (Manual) 4, Monocytes % (Manual) 2, Toxic Granulation 2+, Sodium Level 138, Potassium Level 4.2, Chloride Level 102, Carbon Dioxide Level 21, Anion Gap 15H, Blood Urea Nitrogen 21H, Creatinine 1.59H, Estimat Glomerular Filtration Rate 45, BUN/Creatinine Ratio 13, Glucose Level 412*H, Lactic Acid Level 4.24*H, Calcium Level 9.2, Phosphorus Level 2.4, Magnesium Level 2.2, Triglycerides Level 91 02/26/18 03:33: Glucometer 313H 02/26/18 05:14: Glucometer 273H 02/26/18 05:24: Blood Gas Puncture Site LEFT RADIAL, Blood Gas Patient Temperature 97.3, Arterial Blood pH 7.43, Arterial Blood Partial Pressure CO2 41, Arterial Blood Partial Pressure O2 112H, Arterial Blood HCO3 27, Arterial Blood Total CO2 27.8 , Arterial Blood Oxygen Saturation 99, Arterial Blood Base Excess 2.4, Hamlet Test POSITIVE, Blood Gas Ventilator Setting YES, Blood Gas Inspired Oxygen 50% 02/26/18 05:59: Glucometer 248H 02/26/18 07:01: Sodium Level 140, Potassium Level 4.2, Chloride Level 106, Carbon Dioxide Level 24, Anion Gap 10, Blood Urea Nitrogen 23H, Creatinine 1.57H, Estimat Glomerular Filtration Rate 45, BUN/Creatinine Ratio 15, Glucose Level 235H, Lactic Acid Level 2.14*H, Calcium Level 8.1L 02/26/18 08:48: Glucometer 308H 02/26/18 09:05: Lactic Acid Level 1.07 02/26/18 09:35: Blood Gas Puncture Site ART, Blood Gas Patient Temperature 96.9, Arterial Blood pH 7.45H, Arterial Blood Partial Pressure CO2 37, Arterial Blood Partial Pressure O2 105H, Arterial Blood HCO3 26, Arterial Blood Total CO2 26.8, Arterial Blood Oxygen Saturation 99, Arterial Blood Base Excess 1.8, Hamlet Test ART LINE, Blood Gas Ventilator Setting YES, Blood Gas Inspired Oxygen 50% 02/26/18 11:20: Sodium Level 141, Potassium Level 3.6, Chloride Level 108H, Carbon Dioxide Level 24, Anion Gap 9, Blood Urea Nitrogen 22H, Creatinine 1.52H, Estimat Glomerular Filtration Rate 47, BUN/Creatinine Ratio 14, Glucose Level 214H, Calcium Level 7.8L 02/26/18 12:55: Glucometer 178H 02/26/18 15:50: Sodium Level 140, Potassium Level 3.8, Chloride Level 110H, Carbon Dioxide Level 23, Anion Gap 7, Blood Urea Nitrogen 24H, Creatinine 1.86H, Estimat Glomerular Filtration Rate 37, BUN/Creatinine Ratio 13, Glucose Level 155H, Calcium Level 8.0L 02/26/18 16:55: Sodium Level 140, Potassium Level 3.9, Chloride Level 112H, Carbon Dioxide Level 20L, Anion Gap 8, Blood Urea Nitrogen 23H, Creatinine 1.82H, Estimat Glomerular Filtration Rate 38, BUN/Creatinine Ratio 13, Glucose Level 149H, Calcium Level 7.7L, White Blood Count 13.8H, Red Blood Count 4.23L, Hemoglobin 12.5L, Hematocrit 37L, Mean Corpuscular Volume 88, Mean Corpuscular Hemoglobin 30, Mean Corpuscular Hemoglobin Concent 34, Red Cell Distribution Width 12.9, Platelet Count 240, Mean Platelet Volume 10.4, Neutrophils (%) (Auto) 88H, Lymphocytes (%) (Auto) 7L, Monocytes (%) (Auto) 6, Eosinophils (%) (Auto) 0, Basophils (%) (Auto) 0, Neutrophils # (Auto) 12.1H, Lymphocytes # (Auto) 0.9L, Monocytes # (Auto) 0.8, Eosinophils # (Auto) 0.0, Basophils # (Auto) 0.0, Neutrophils % (Manual) 89, Lymphocytes % (Manual) 6, Monocytes % (Manual) 4, Eosinophils % (Manual) 0, Basophils % (Manual) 0, Band Neutrophils 1, Blood Morphology Comment NORMAL, Lactic Acid Level 1.91, Corrected Calcium 8.7, Phosphorus Level 2.0L, Magnesium Level 1.7L, Total Bilirubin 0.3, Aspartate Amino Transf (AST/SGOT) 17, Alanine Aminotransferase (ALT/SGPT) 22, Alkaline Phosphatase 80, Total Protein 4.6L, Albumin 2.8L Microbiology 02/26/18 Blood Culture - Preliminary, Resulted No growth 02/26/18 Gram Stain - Final, Resulted 02/26/18 Sputum Culture, Resulted Pending A/P-Cardiology Assessment/Admission Diagnosis Transient bradycardia (sinus guanaco alternating with junctional rhythm with heart rate approx 45 bpm) No evidence of A Flutter or A Fib, so far Seizure with status epilepticus at presentation (according to this hospitalization records) DM II with DKA (according to this hospitalization records) Acute renal failure, managed by the Med ce H/o CVA in 2013 (speech impairment) followed and treated by his pcp H/o noncompliance with meds (according to this hospitalization records) Discussion and Recomendations * I have reviewed his records and ECG and tele strips. What was interpreted as A Flutter appears to be baseline artifact. There is sinus rhythm seen through the artifact * Transient bradycardia may have been related to meds and/or a vasovagal episode. Currently NSR * Use vasopressors to support bp * Avoid Precedex or other bradycardia-causing meds * Monitor labs and heart rhythm Clinical Quality Measures DVT/VTE Risk/Contraindication: Risk Factor Score Per Nursin RFS Level Per Nursing on Admit: 3=High ELBA BALDERAS MD FACP FAC CCDS Feb 26, 2018 18:31
[2018-02-26] MEDS: VANCOMYCIN 1500 MG/NS 500 ML IVPB IV SCH ×2 (19:00)
[2018-02-26] MEDS: ENOXAPARIN 40 MG/0.4 ML (LOVENOX) SYR SQ SCH (19:57)
[2018-02-26] MEDS ORDERED: NS IV 1000 ML 1,000 ML ONE (21:16)
--- NOTE | 2018-02-26 21:28 | OPERATIVE REPORT ---
DATE OF SERVICE: PREOPERATIVE DIAGNOSES: Hypotension, seizures, venous insufficiency, diabetes mellitus, history of CVA. POSTOPERATIVE DIAGNOSES: Hypotension, seizures, venous insufficiency, diabetes mellitus, history of CVA. PROCEDURE: Insertion of triple lumen catheter, right IJ with ultrasound guidance. SURGEON: Dru Martínez DO. SHORE WORKER: None. ANESTHESIA: Just local lidocaine. BLOOD LOSS: Scant. SPECIMENS: None. FLUIDS: Minimal. POSTOPERATIVE CONDITION: Stable. INDICATION FOR PROCEDURE: The patient is a 62-year-old male who unfortunately came in with some seizure activity. He had stopped taking his medications then became hypotensive once they intubated him, needed a central access for pressors. FINDINGS: The patient had a right IJ triple lumen catheter placed under ultrasound guidance without any difficulty. PROCEDURE NOTE: After informed consent was obtained from the patient's family, he was in the ICU bed sterilely prepped and draped in normal fashion. Local lidocaine was used to infiltrate the right neck. Then, using ultrasound guidance advanced the 18-gauge fine needle and negative inspiration and watched the needle go into the IJ, got a good flush of blood, removed the syringe, placed a guidewire down the needle using Seldinger technique, it went in easily, could see the guidewire down and the IJ with ultrasound probe. Removed the needle, then made a stab incision along the guidewire with a #11 blade and then over the guidewire placed a dilator using Seldinger technique, it went in easily. I then removed the dilator and then over the guidewire placed the triple lumen catheter, went in easily placed the triple lumen catheter, removed the guidewire and then all 3 ports had a locking flushes on them. Easily aspirated and flushed in all 3 ports then sutured in place with 3-0 silk suture and then the area was cleaned and dried and nurse placed the occlusive sterile dressing. The patient tolerated the procedure. Instrument count correct at the end of case. Job ID: [id number] DocumentID: [id number] Dictated Date: 02/26/2018 18:11:28 Carbonator Date: 02/26/2018 21:27:34 Dictated By: DRU MARTÍNEZ DO
--- NOTE | 2018-02-26 21:39 | History & Physicial (CHS) ---
HPI History of Present Illness: 62 yo Non compliant patient that presented to ER via EMS due to multiple seizures. Patient was intubated in ER due to post ictal status and respiratory failure. Found that have profound acidosis and admitted for DKA and Status. Source: RN/MD, old records Exam Limitations: clinical condition Date seen by provider: Feb 26, 2018 Time Seen by Provider: 08:15 Attending Physician Nery Aldrich MD PCP [place] Consult Date of Admission Feb 26, 2018 at 01:55 Home Medications Home Medications Reviewed patient Home Medication Reconciliation performed by pharmacy medication reconciliations transportation engineering technician and/or nursing. Patients Allergies have been reviewed. Allergies Coded Allergies: NKANo Known Allergies (Verified Allergy, Unknown, 12/18/17) [id number] Hx Patient Social History Living Status: living at home with GF Alcohol Use: Occasionally Uses (HISTORY OF ABUSE) Recreational Drug Use: Yes (METH USE) Drug of Choice: METH Smoking Status: Current Everyday Smoker (1 PPD) Type Used: Cigarettes 2nd Hand Smoke Exposure: Yes Recent Foreign Travel: No Contact w/other who traveled: No Recent Hopitalizations: No Recent Infectious Disease Expo: No Physical Abuse Screen: No Sexual Abuse: No Immunizations Up To Date Tetanus Booster (TDap): More than 5yrs Date of Pneumonia Vaccine: Jun 10, 2013 Date of Influenza Vaccine: Dec 02, 2013 Past Medical History IDDM Generalize Sz D/o Multiple substance abuse Family Medical History Significant Family History: Heart Disease, Psychiatric Problems Family History: Family history: Cardiovascular disease 03 FATHER (MACKENZIE PARKINSONS SYNDROME) Family history: Hypertension 03 FATHER History of - disorder 03 MOTHER (DEPRESSION) 09 SISTER (MENTAL HEALTH ISSUES) Review of Systems (CHC) Constitutional: no symptoms reported, other (Patient intubated and sedated and unable to get ROS) Reviewed Test Results Reviewed Test Results Lab Laboratory Tests Test 02/25/18 23:35 02/25/18 23:45 02/25/18 23:50 02/26/18 00:05 Range/Units White Blood Count 12.9 H 4.3-11.0 10^3/uL Red Blood Count 5.38 4.35-5.85 10^6/uL Hemoglobin 16.2 13.3-17.7 G/DL Hematocrit 46 40-54 % Mean Corpuscular Volume 86 80-99 FL Mean Corpuscular Hemoglobin 30 25-34 PG Mean Corpuscular Hemoglobin Concent 35 32-36 G/DL Red Cell Distribution Width 12.8 10.0-14.5 % Platelet Count 420 H 130-400 10^3/uL Mean Platelet Volume 10.4 7.4-10.4 FL Neutrophils (%) (Auto) 70 42-75 % Lymphocytes (%) (Auto) 23 12-44 % Monocytes (%) (Auto) 5 0-12 % Eosinophils (%) (Auto) 2 0-10 % Basophils (%) (Auto) 1 0-10 % Neutrophils # (Auto) 9.0 H 1.8-7.8 X 10^3 Lymphocytes # (Auto) 2.9 1.0-4.0 X 10^3 Monocytes # (Auto) 0.6 0.0-1.0 X 10^3 Eosinophils # (Auto) 0.3 0.0-0.3 10^3/uL Basophils # (Auto) 0.1 0.0-0.1 10^3/uL Prothrombin Time 13.0 12.2-14.7 SEC INR Comment 1.0 0.8-1.4 Activated Partial Thromboplast Time 22 L 24-35 SEC Sodium Level 137 135-145 MMOL/L Potassium Level 4.0 3.6-5.0 MMOL/L Chloride Level 99 98-107 MMOL/L Carbon Dioxide Level 10 L 21-32 MMOL/L Anion Gap 28 H 5-14 MMOL/L Blood Urea Nitrogen 20 H 7-18 MG/DL Creatinine 1.69 H 0.60-1.30 MG/DL Estimat Glomerular Filtration Rate 42 BUN/Creatinine Ratio 12 Glucose Level 508 *H 70-105 MG/DL Glucometer 445 *H 70-110 MG/DL Lactic Acid Level > 13.35 *H 0.50-2.00 MMOL/L Calcium Level 9.6 8.5-10.1 MG/DL Corrected Calcium 9.7 8.5-10.1 MG/DL Magnesium Level 2.3 1.8-2.4 MG/DL Total Bilirubin 0.2 0.1-1.0 MG/DL Aspartate Amino Transf (AST/SGOT) 18 5-34 U/L Alanine Aminotransferase (ALT/SGPT) 33 0-55 U/L Alkaline Phosphatase 128 40-136 U/L Total Creatine Kinase 160 30-200 U/L Creatine Kinase MB 6.5 <6.6 NG/ML Myoglobin 300.5 H 10.0-92.0 NG/ML Troponin I < 0.30 <0.30 NG/ML B-Type Natriuretic Peptide 21.9 <100.0 PG/ML Total Protein 6.6 6.4-8.2 GM/DL Albumin 3.9 3.2-4.5 GM/DL Amylase Level 160 H 25-125 U/L Lipase 326 H 8-78 U/L TSH [place] Testing 1.75 0.35-4.94 UIU/ML Acetaminophen Level < 10 L 10-30 UG/ML Serum Alcohol < 10 <10 MG/DL Blood Gas Puncture Site LEFT RADIAL Blood Gas Patient Temperature 96.9 Arterial Blood pH 7.01 *L 7.37-7.43 Arterial Blood Partial Pressure CO2 46 H 35-45 MMHG Arterial Blood Partial Pressure O2 105 H 79-93 MMHG Arterial Blood HCO3 11 *L 23-27 MMOL/L Arterial Blood Total CO2 12.6 L 21.0-31.0 MMOL/L Arterial Blood Oxygen Saturation 95 94-100 % Arterial Blood Base Excess -17.9 L -2.5-2.5 MMOL/L [place] Test POSITIVE Blood Gas Ventilator Setting NO Blood Gas Inspired Oxygen 10 Urine Color YELLOW Urine Clarity CLEAR Urine pH 6 5-9 Urine Specific [place] 1.010 L 1.016-1.022 Urine Protein 2+ H NEGATIVE Urine Glucose (UA) 4+ H NEGATIVE Urine Ketones NEGATIVE NEGATIVE Urine Nitrite NEGATIVE NEGATIVE Urine Bilirubin NEGATIVE NEGATIVE Urine Urobilinogen NORMAL NORMAL MG/DL Urine Leukocyte Esterase 1+ H NEGATIVE Urine RBC (Auto) 1+ H NEGATIVE Urine RBC 0-2 /HPF Urine WBC RARE /HPF Urine Squamous Epithelial Cells 0-2 /HPF Urine Crystals NONE /LPF Urine Bacteria FEW H /HPF Urine Casts NONE /LPF Urine Mucus NEGATIVE /LPF Urine Culture Indicated NO Urine Opiates Screen NEGATIVE NEGATIVE Urine Oxycodone Screen NEGATIVE NEGATIVE Urine Methadone Screen NEGATIVE NEGATIVE Urine Propoxyphene Screen NEGATIVE NEGATIVE Urine Barbiturates Screen NEGATIVE NEGATIVE Ur Tricyclic Antidepressants Screen NEGATIVE NEGATIVE Urine Phencyclidine Screen NEGATIVE NEGATIVE Urine Amphetamines Screen POSITIVE H NEGATIVE Urine Methamphetamines Screen POSITIVE H NEGATIVE Urine Benzodiazepines Screen NEGATIVE NEGATIVE Urine Cocaine Screen NEGATIVE NEGATIVE Urine Cannabinoids Screen POSITIVE H NEGATIVE Ammonia 38 H 11-32 UMOL/L Test 02/26/18 01:25 02/26/18 01:57 02/26/18 02:50 02/26/18 03:33 Range/Units Blood Gas Puncture Site L RADIAL Blood Gas Patient Temperature 96.8 Arterial Blood pH 7.35 L 7.37-7.43 Arterial Blood Partial Pressure CO2 45 35-45 MMHG Arterial Blood Partial Pressure O2 249 H 79-93 MMHG Arterial Blood HCO3 25 23-27 MMOL/L Arterial Blood Total CO2 26.1 21.0-31.0 MMOL/L Arterial Blood Oxygen Saturation 100 94-100 % Arterial Blood Base Excess -0.5 -2.5-2.5 MMOL/L Hamlet Test POSITIVE Blood Gas Ventilator Setting YES Blood Gas Inspired Oxygen 80% Glucometer 476 *H 313 H 70-110 MG/DL White Blood Count 18.1 H 4.3-11.0 10^3/uL Red Blood Count 5.15 4.35-5.85 10^6/uL Hemoglobin 15.3 13.3-17.7 G/DL Hematocrit 44 40-54 % Mean Corpuscular Volume 85 80-99 FL Mean Corpuscular Hemoglobin 30 25-34 PG Mean Corpuscular Hemoglobin Concent 35 32-36 G/DL Red Cell Distribution Width 12.8 10.0-14.5 % Platelet Count 294 130-400 10^3/uL Mean Platelet Volume 10.2 7.4-10.4 FL Neutrophils (%) (Auto) 92 H 42-75 % Lymphocytes (%) (Auto) 4 L 12-44 % Monocytes (%) (Auto) 4 0-12 % Eosinophils (%) (Auto) 0 0-10 % Basophils (%) (Auto) 0 0-10 % Neutrophils # (Auto) 16.7 H 1.8-7.8 X 10^3 Lymphocytes # (Auto) 0.7 L 1.0-4.0 X 10^3 Monocytes # (Auto) 0.7 0.0-1.0 X 10^3 Eosinophils # (Auto) 0.0 0.0-0.3 10^3/uL Basophils # (Auto) 0.0 0.0-0.1 10^3/uL Neutrophils % (Manual) 94 % Lymphocytes % (Manual) 4 % Monocytes % (Manual) 2 % Toxic Granulation 2+ Sodium Level 138 135-145 MMOL/L Potassium Level 4.2 3.6-5.0 MMOL/L Chloride Level 102 98-107 MMOL/L Carbon Dioxide Level 21 21-32 MMOL/L Anion Gap 15 H 5-14 MMOL/L Blood Urea Nitrogen 21 H 7-18 MG/DL Creatinine 1.59 H 0.60-1.30 MG/DL Estimat Glomerular Filtration Rate 45 BUN/Creatinine Ratio 13 Glucose Level 412 *H 70-105 MG/DL Lactic Acid Level 4.24 *H 0.50-2.00 MMOL/L Calcium Level 9.2 8.5-10.1 MG/DL Phosphorus Level 2.4 2.3-4.7 MG/DL Magnesium Level 2.2 1.8-2.4 MG/DL Triglycerides Level 91 <150 MG/DL Test 02/26/18 05:14 02/26/18 05:24 02/26/18 05:59 02/26/18 07:01 Range/Units Glucometer 273 H 248 H 70-110 MG/DL Blood Gas Puncture Site LEFT RADIAL Blood Gas Patient Temperature 97.3 Arterial Blood pH 7.43 7.37-7.43 Arterial Blood Partial Pressure CO2 41 35-45 MMHG Arterial Blood Partial Pressure O2 112 H 79-93 MMHG Arterial Blood HCO3 27 23-27 MMOL/L Arterial Blood Total CO2 27.8 21.0-31.0 MMOL/L Arterial Blood Oxygen Saturation 99 94-100 % Arterial Blood Base Excess 2.4 -2.5-2.5 MMOL/L Hamlet Test POSITIVE Blood Gas Ventilator Setting YES Blood Gas Inspired Oxygen 50% Sodium Level 140 135-145 MMOL/L Potassium Level 4.2 3.6-5.0 MMOL/L Chloride Level 106 98-107 MMOL/L Carbon Dioxide Level 24 21-32 MMOL/L Anion Gap 10 5-14 MMOL/L Blood Urea Nitrogen 23 H 7-18 MG/DL Creatinine 1.57 H 0.60-1.30 MG/DL Estimat Glomerular Filtration Rate 45 BUN/Creatinine Ratio 15 Glucose Level 235 H 70-105 MG/DL Lactic Acid Level 2.14 *H 0.50-2.00 MMOL/L Calcium Level 8.1 L 8.5-10.1 MG/DL Test 02/26/18 08:48 02/26/18 09:05 02/26/18 09:35 02/26/18 11:20 Range/Units Glucometer 308 H 70-110 MG/DL Lactic Acid Level 1.07 0.50-2.00 MMOL/L Blood Gas Puncture Site ART Blood Gas Patient Temperature 96.9 Arterial Blood pH 7.45 H 7.37-7.43 Arterial Blood Partial Pressure CO2 37 35-45 MMHG Arterial Blood Partial Pressure O2 105 H 79-93 MMHG Arterial Blood HCO3 26 23-27 MMOL/L Arterial Blood Total CO2 26.8 21.0-31.0 MMOL/L Arterial Blood Oxygen Saturation 99 94-100 % Arterial Blood Base Excess 1.8 -2.5-2.5 MMOL/L Hamlet Test ART LINE Blood Gas Ventilator Setting YES Blood Gas Inspired Oxygen 50% Sodium Level 141 135-145 MMOL/L Potassium Level 3.6 3.6-5.0 MMOL/L Chloride Level 108 H 98-107 MMOL/L Carbon Dioxide Level 24 21-32 MMOL/L Anion Gap 9 5-14 MMOL/L Blood Urea Nitrogen 22 H 7-18 MG/DL Creatinine 1.52 H 0.60-1.30 MG/DL Estimat Glomerular Filtration Rate 47 BUN/Creatinine Ratio 14 Glucose Level 214 H 70-105 MG/DL Calcium Level 7.8 L 8.5-10.1 MG/DL Test 02/26/18 12:55 02/26/18 15:50 02/26/18 16:55 02/26/18 20:00 Range/Units Glucometer 178 H 184 H 70-110 MG/DL Sodium Level 140 140 135-145 MMOL/L Potassium Level 3.8 3.9 3.6-5.0 MMOL/L Chloride Level 110 H 112 H 98-107 MMOL/L Carbon Dioxide Level 23 20 L 21-32 MMOL/L Anion Gap 7 8 5-14 MMOL/L Blood Urea Nitrogen 24 H 23 H 7-18 MG/DL Creatinine 1.86 H 1.82 H 0.60-1.30 MG/DL Estimat Glomerular Filtration Rate 37 38 BUN/Creatinine Ratio 13 13 Glucose Level 155 H 149 H 70-105 MG/DL Calcium Level 8.0 L 7.7 L 8.5-10.1 MG/DL White Blood Count 13.8 H 4.3-11.0 10^3/uL Red Blood Count 4.23 L 4.35-5.85 10^6/uL Hemoglobin 12.5 L 13.3-17.7 G/DL Hematocrit 37 L 40-54 % Mean Corpuscular Volume 88 80-99 FL Mean Corpuscular Hemoglobin 30 25-34 PG Mean Corpuscular Hemoglobin Concent 34 32-36 G/DL Red Cell Distribution Width 12.9 10.0-14.5 % Platelet Count 240 130-400 10^3/uL Mean Platelet Volume 10.4 7.4-10.4 FL Neutrophils (%) (Auto) 88 H 42-75 % Lymphocytes (%) (Auto) 7 L 12-44 % Monocytes (%) (Auto) 6 0-12 % Eosinophils (%) (Auto) 0 0-10 % Basophils (%) (Auto) 0 0-10 % Neutrophils # (Auto) 12.1 H 1.8-7.8 X 10^3 Lymphocytes # (Auto) 0.9 L 1.0-4.0 X 10^3 Monocytes # (Auto) 0.8 0.0-1.0 X 10^3 Eosinophils # (Auto) 0.0 0.0-0.3 10^3/uL Basophils # (Auto) 0.0 0.0-0.1 10^3/uL Neutrophils % (Manual) 89 % Lymphocytes % (Manual) 6 % Monocytes % (Manual) 4 % Eosinophils % (Manual) 0 % Basophils % (Manual) 0 % Band Neutrophils 1 % Blood Morphology Comment NORMAL Lactic Acid Level 1.91 0.50-2.00 MMOL/L Corrected Calcium 8.7 8.5-10.1 MG/DL Phosphorus Level 2.0 L 2.3-4.7 MG/DL Magnesium Level 1.7 L 1.8-2.4 MG/DL Total Bilirubin 0.3 0.1-1.0 MG/DL Aspartate Amino Transf (AST/SGOT) 17 5-34 U/L Alanine Aminotransferase (ALT/SGPT) 22 0-55 U/L Alkaline Phosphatase 80 40-136 U/L Total Protein 4.6 L 6.4-8.2 GM/DL Albumin 2.8 L 3.2-4.5 GM/DL Physical Exam-(CHC) Physical Exam Vital Signs VS - Last 72 Hours, by Label 02/25/18 02/25/18 02/26/18 02/26/18 23:30 23:31 00:15 00:42 Temp 97.3 97.3 Pulse 114 114 103 Resp 20 20 16 B/P (MAP) 112/63 (79) 112/63 Pulse Ox 94 97 97 100 O2 Delivery Nasal Cannula OxyMask OxyMask O2 Flow Rate 2.00 10.00 10.00 FiO2 100 02/26/18 02/26/18 02/26/18 02/26/18 02:02 02:14 02:22 02:30 Temp 98.6 97.5 Pulse 101 113 103 113 Resp 20 16 16 B/P (MAP) 89/60 (70) 146/107 (120) Pulse Ox 100 98 96 O2 Delivery Mechanical Ventilator Mechanical Ventilator O2 Flow Rate 15.00 50.00 FiO2 50 02/26/18 02/26/18 02/26/18 02/26/18 02:30 03:00 04:00 04:00 Temp 97.1 Pulse 95 Resp 15 B/P (MAP) 91/72 (78) Pulse Ox 98 94 98 O2 Delivery Mechanical Ventilator Mechanical Ventilator Mechanical Ventilator O2 Flow Rate 50.00 50.00 FiO2 50 02/26/18 02/26/18 02/26/18 02/26/18 04:00 04:12 05:00 06:00 Pulse 90 92 87 85 Resp 16 16 16 15 B/P (MAP) 78/52 (61) 74/52 (59) 86/58 (67) Pulse Ox 98 98 99 100 O2 Delivery Mechanical Ventilator Mechanical Ventilator Mechanical Ventilator O2 Flow Rate 50.00 50.00 50.00 FiO2 50 02/26/18 02/26/18 02/26/18 02/26/18 06:34 06:56 07:00 07:00 Pulse 89 85 85 Resp 21 20 B/P (MAP) 111/77 97/71 (80) Pulse Ox 100 100 O2 Delivery Mechanical Ventilator O2 Flow Rate 50.00 FiO2 50 02/26/18 02/26/18 02/26/18 02/26/18 07:00 08:00 08:00 08:00 Temp 96.8 Pulse 86 Resp 20 B/P (MAP) 113/77 (89) Pulse Ox 98 100 O2 Delivery Mechanical Ventilator Mechanical Ventilator Mechanical Ventilator O2 Flow Rate 50.00 50.00 02/26/18 02/26/18 02/26/18 02/26/18 09:00 09:51 10:00 10:35 Pulse 87 85 80 81 Resp 28 21 29 21 B/P (MAP) 128/77 (94) Pulse Ox 100 100 100 100 O2 Delivery Mechanical Ventilator Mechanical Ventilator O2 Flow Rate 50.00 50.00 FiO2 50 50 02/26/18 02/26/18 02/26/18 02/26/18 11:00 12:00 12:00 12:16 Temp 96.9 Pulse 76 70 Resp 21 21 B/P (MAP) 134/71 (92) Pulse Ox 100 98 98 O2 Delivery Mechanical Ventilator Mechanical Ventilator O2 Flow Rate 50.00 30.00 FiO2 40 02/26/18 02/26/18 02/26/18 02/26/18 13:00 13:00 13:14 13:30 Pulse 62 62 63 Resp 21 20 B/P (MAP) 105/62 (76) 105/62 (76) Pulse Ox 97 97 O2 Delivery Mechanical Ventilator Mechanical Ventilator Mechanical Ventilator O2 Flow Rate 30.00 30.00 02/26/18 02/26/18 02/26/18 02/26/18 14:00 14:28 14:30 14:46 Pulse 61 60 62 Resp 21 21 20 B/P (MAP) 123/65 (84) 135/70 (91) Pulse Ox 97 97 97 O2 Delivery Mechanical Ventilator Mechanical Ventilator Mechanical Ventilator O2 Flow Rate 30.00 30.00 21.00 FiO2 30 02/26/18 02/26/18 02/26/18 02/26/18 15:00 15:30 16:00 16:00 Temp 96.6 Pulse 60 60 60 Resp 21 20 21 B/P (MAP) /62 114/62 (79) 113/62 (79) 110/60 (77) Pulse Ox 93 94 95 O2 Delivery Mechanical Ventilator Mechanical Ventilator Mechanical Ventilator O2 Flow Rate 21.00 21.00 21.00 02/26/18 02/26/18 02/26/18 02/26/18 16:00 16:23 16:30 17:00 Pulse 59 59 56 Resp 21 21 28 B/P (MAP) 65/50 (55) 82/49 (60) Pulse Ox 2 93 94 98 O2 Delivery Mechanical Ventilator Mechanical Ventilator Mechanical Ventilator O2 Flow Rate 21.00 21.00 21.00 FiO2 21 02/26/18 02/26/18 02/26/18 02/26/18 17:30 17:47 18:00 18:30 Pulse 68 66 66 64 Resp 21 9 B/P (MAP) 143/64 (90) 104/54 (71) 105/61 (76) Pulse Ox 93 93 94 O2 Delivery Mechanical Ventilator Mechanical Ventilator Mechanical Ventilator O2 Flow Rate 21.00 21.00 21.00 02/26/18 02/26/18 02/26/18 02/26/18 18:45 20:00 20:00 20:08 Temp 98.3 Pulse 70 Resp 24 B/P (MAP) 141/71 Pulse Ox 96 97 O2 Delivery Mechanical Ventilator O2 Flow Rate 21.00 FiO2 21 Capillary Refill : Less Than 3 SecondsLess Than 3 Seconds General Appearance: other (Intubated and sedated) HEENT: PERRL/EOMI Respiratory: lungs clear Cardiovascular: regular rate, rhythm, no murmur Gastrointestinal: normal bowel sounds, soft, no organomegaly Extremities: no pedal edema, normal capillary refill Neurologic/Psychiatric: other (Intubated and sedated, moving all extremities ) Skin: normal color, warm/dry Lymphatic: no adenopathy Assessment/Plan Assessment/Plan Admission Status: Inpatient Order (span 2 midnights) Reason for Inpatient Admission: intubated and requiring ICU care (1) Respiratory failure with hypoxia Status: Acute Assessment & Plan: - Currently intubated, Dr Gilliam managing, weaning trial tomorrow Qualifiers: Qualified Codes: J96.01 - Acute respiratory failure with hypoxia (2) Metabolic acidosis Status: Acute Assessment & Plan: - Not DKA, will continue SSI insulin, likely combined metabolic and respiratory acidosis, acidosis corrected this AM, Continue with IVF hydration (3) Status epilepticus Status: Acute Assessment & Plan: - Patient had not been taking meds, keppra loading IV, Sz precautions (4) Acute kidney failure Status: Acute Assessment & Plan: - IVF hydration, continue to monitor Cr daily Qualifiers: Qualified Codes: N17.9 - Acute kidney failure, unspecified (5) SIRS (systemic inflammatory response syndrome) Status: Acute Assessment & Plan: - Start broad spectrum antibiotics (6) Methamphetamine abuse Status: Acute (7) Non-compliance Status: Acute (8) DVT prophylaxis Status: Acute Assessment & Plan: Lovenox Clinical Quality Measures DVT/VTE Risk/Contraindication: Risk Factor Score Per Nursin RFS Level Per Nursing on Admit: 3=High Copy Copies To 1: NERY FIELDS MD Feb 26, 2018 21:39
[2018-02-27] VITALS (18 sets, daily range): BP systolic 120–166; BP diastolic 52–104
[2018-02-27] MEDS: inSUlin ASPART (NovoLOG) 1 UNIT/0.01 ML (CHARGE PER UNIT) SQ SCH ×6 (00:05→21:25)
[2018-02-27] MEDS ORDERED: NS (IVPB) 250 ML ONE (01:34)
[2018-02-27] MEDS ORDERED: NOREPINEPHRINE 4 MG/4 ML (LEVOPHED) AMP IV ONE (01:34)
[2018-02-27] MEDS ORDERED: NOREPINEPHRINE 4 MG in NS (IVPB) 250 ML IV SCH (01:45)
[2018-02-27] MEDS: LACTATED RINGERS 1,000 ML IV SCH ×3 (02:39→16:25)
[2018-02-27 03:42] LABS: BASOPHILS % (AUTO) 0 % (0-10); EOSINOPHILS % (AUTO) 0 % (0-10); HEMATOCRIT 36 % (40-54); HEMOGLOBIN 12.4 G/DL (13.3-17.7); LYMPHOCYTES # (AUTO) 2.2 X 10^3 (1.0-4.0); LYMPHOCYTES % (AUTO) 14 % (12-44); MEAN CORPUSCULAR HEMOGLOBIN 30 PG (25-34); MEAN CORPUSCULAR HGB CONC 35 G/DL (32-36); MEAN CORPUSCULAR VOLUME 87 FL (80-99); MEAN PLATELET VOLUME 9.8 FL (7.4-10.4); MONOCYTES # (AUTO) 1.2 X 10^3 (0.0-1.0); MONOCYTES % (AUTO) 8 % (0-12); NEUTROPHILS # (AUTO) 11.5 X 10^3 (1.8-7.8); NEUTROPHILS % (AUTO) 78 % (42-75); PLATELET COUNT 285 10^3/uL (130-400); RED BLOOD COUNT 4.13 10^6/uL (4.35-5.85); RED CELL DISTRIBUTION WIDTH 13.3 % (10.0-14.5); WHITE BLOOD COUNT 14.9 10^3/uL (4.3-11.0)
[2018-02-27 03:43] LABS: ABG BASE EXCESS -1.6 MMOL/L (-2.5-2.5); ABG OXYGEN SATURATION 95 % (94-100); ABG PCO2 36 MMHG (35-45); ABG PH 7.41 (7.37-7.43); ABG PO2 67 MMHG (79-93); ABG TCO2 23.6 MMOL/L (21.0-31.0); ALLENS TEST ART LINE
[2018-02-27 03:44] LABS: INSPIRED O2 21%; PATIENT TEMP 97.7; VENTILATOR YES
[2018-02-27] MEDS: PROPOFOL DRIP (ICU) 100 ML IV SCH (03:47)
[2018-02-27] MEDS ORDERED: LEVETIRACETAM 1,000 MG/NS 100 ML IVPB IV SCH ×2 (04:00)
[2018-02-27 04:08] LABS: CALCIUM 7.8 MG/DL (8.5-10.1); CREATININE SERUM 2.09 MG/DL (0.60-1.30); MAGNESIUM 1.9 MG/DL (1.8-2.4); PHOSPHORUS 2.5 MG/DL (2.3-4.7); POTASSIUM 3.4 MMOL/L (3.6-5.0)
[2018-02-27] MEDS: MAGNESIUM 1 GM/100 ML IVPB 100 ML IV SCH (04:11)
[2018-02-27] MEDS: KCL 20 MEQ TAB (K-DUR) PO SCH (04:11)
[2018-02-27] MEDS: POTASSIUM CL 10MEQ/50ML IVPB 50 ML IV SCH ×4 (04:11→05:23)
[2018-02-27] MEDS: PIPERACILLIN/TAZO 4.5 GM/NS 100 ML IV SCH ×6 (04:27→21:26)
--- NOTE | 2018-02-27 04:56 | Pulmonary Progress Note ---
SANDRO CORMIER MED STUDENT 02/27/18 0456: Subjective Date Seen by a Provider: Feb 27, 2018 Time Seen by a Provider: 05:02 Subjective/Events-last exam Patient is still intubated, significant other at bedside, nursing staff beginning process of weaning this morning. Sepsis Event Evaluation Height, Weight, BMI Height: 6'2.00" Weight: 240lbs. 0.0oz. [id number]; 27.73 BMI Method:Estimated Focused Exam Lactate Level 02/26/18 07:01: Lactic Acid Level 2.14*H 02/26/18 09:05: Lactic Acid Level 1.07 02/26/18 16:55: Lactic Acid Level 1.91 Respiratory: Normal Breath Sounds, Respiratory Distress (on ventilator) Cardiovascular: Regular Rate, Rhythm Skin: normal color, warm/dry Exam Exam Vital Signs Date Time Temp Pulse Resp B/P (MAP) Pulse Ox O2 Delivery O2 Flow Rate FiO2 02/27/18 04:00 86 20 120/54 (76) 95 Mechanical Ventilator 21.00 02/27/18 04:00 97.7 02/27/18 04:00 95 Mechanical Ventilator 21.00 02/27/18 03:47 127/56 02/27/18 03:00 86 21 121/56 (77) 94 Mechanical Ventilator 21.00 02/27/18 02:10 85 21 95 21 02/27/18 02:00 82 20 123/58 (79) 93 Mechanical Ventilator 21.00 02/27/18 01:00 76 20 121/56 (77) 93 Mechanical Ventilator 21.00 02/27/18 01:00 76 02/27/18 00:10 75 21 94 21 02/27/18 00:00 99.6 02/27/18 00:00 93 Mechanical Ventilator 21.00 02/27/18 00:00 75 15 126/60 (82) 93 Mechanical Ventilator 21.00 02/26/18 23:56 124/58 02/26/18 23:00 77 20 127/59 (81) 93 Mechanical Ventilator 21.00 02/26/18 22:50 79 21 95 21 02/26/18 22:00 85 14 109/59 (76) 94 Mechanical Ventilator 21.00 02/26/18 21:00 79 20 136/69 (91) 98 Mechanical Ventilator 21.00 02/26/18 20:56 80 21 95 21 02/26/18 20:08 141/71 02/26/18 20:00 97 Mechanical Ventilator 21.00 02/26/18 20:00 75 28 143/73 (96) 97 Mechanical Ventilator 21.00 02/26/18 20:00 98.3 02/26/18 19:00 70 24 119/72 (88) 97 Mechanical Ventilator 21.00 02/26/18 19:00 70 02/26/18 18:45 70 24 96 21 02/26/18 18:30 64 105/61 (76) 94 Mechanical Ventilator 21.00 02/26/18 18:00 66 9 104/54 (71) 93 Mechanical Ventilator 21.00 02/26/18 17:47 66 02/26/18 17:30 68 21 143/64 (90) 93 Mechanical Ventilator 21.00 02/26/18 17:00 56 28 98 Mechanical Ventilator 21.00 82/49 (60) 02/26/18 16:30 59 21 94 Mechanical Ventilator 21.00 65/50 (55) 02/26/18 16:23 59 21 93 21 02/26/18 16:00 2 Mechanical Ventilator 21.00 02/26/18 16:00 60 21 95 Mechanical Ventilator 21.00 110/60 (77) 02/26/18 16:00 96.6 02/26/18 15:30 60 20 94 Mechanical Ventilator 21.00 113/62 (79) 02/26/18 15:00 60 21 /62 93 Mechanical Ventilator 21.00 114/62 (79) 02/26/18 14:46 Mechanical Ventilator 21.00 02/26/18 14:30 62 20 97 Mechanical Ventilator 30.00 135/70 (91) 02/26/18 14:28 60 21 97 30 02/26/18 14:00 61 21 97 Mechanical Ventilator 30.00 123/65 (84) 02/26/18 13:30 63 20 105/62 (76) 97 Mechanical Ventilator 30.00 02/26/18 13:14 Mechanical Ventilator 02/26/18 13:00 62 21 105/62 (76) 97 Mechanical Ventilator 30.00 02/26/18 13:00 62 02/26/18 12:16 70 21 98 40 02/26/18 12:00 96.9 02/26/18 12:00 98 Mechanical Ventilator 30.00 02/26/18 11:00 76 21 134/71 (92) 100 Mechanical Ventilator 50.00 02/26/18 10:35 81 21 100 50 02/26/18 10:00 80 29 128/77 (94) 100 Mechanical Ventilator 50.00 02/26/18 09:51 85 21 100 50 02/26/18 09:00 87 28 100 Mechanical Ventilator 50.00 02/26/18 08:00 86 20 113/77 (89) 100 Mechanical Ventilator 50.00 02/26/18 08:00 Mechanical Ventilator 02/26/18 08:00 98 Mechanical Ventilator 50.00 02/26/18 07:00 96.8 02/26/18 07:00 85 02/26/18 07:00 85 20 97/71 (80) 100 Mechanical Ventilator 50.00 02/26/18 06:56 111/77 02/26/18 06:34 89 21 100 50 02/26/18 06:00 85 15 86/58 (67) 100 Mechanical Ventilator 50.00 02/26/18 05:00 87 16 74/52 (59) 99 Mechanical Ventilator 50.00 I & O 02/27/18 07:00 Output Total 1445 ml Balance -1445 ml Height & Weight Height: 6'2.00" Weight: 240lbs. 0.0oz. [id number]; 27.73 BMI Method:Estimated General Appearance: Other (pt is intubated) HEENT: PERRL/EOMI, Other (POOR DENTITION WITH MULTIPLE MISSING TEETH. BOTH FRESH AND DRIED BLOOD AROUND MOUTH, WITH ABRASION NOTED TO LEFT SIDE OF TONGUE. ) Neck: Normal Inspection, Supple Respiratory: Normal Breath Sounds, Other (intubated) Cardiovascular: Regular Rate, Rhythm, No Edema, No JVD, No Murmur Capillary Refill: Less Than 3 Seconds Gastrointestinal: normal bowel sounds, soft, no organomegaly Extremity: Normal Capillary Refill, No Pedal Edema Neurologic/Psychiatric: Other (on ventilator) Skin: Warm/Dry, Tattoos/Piercings (MULTIPLE TATTOOS) Results Lab Laboratory Tests 02/25/18 23:35 02/26/18 02:50 02/26/18 07:01 02/26/18 11:20 02/26/18 15:50 02/26/18 16:55 02/27/18 03:35 Assessment/Plan Assessment/Plan Acute respiratory failure -Improving -Begin ventilator wean today Acute seizures -Continue Keppra -seizure precautions -Ativan PRN SIRS r/o Sepsis -Zosyn and Vanco -Broderick cultures pending Hyperglycemia -sliding scale insulin Pancreatitis -Unable to visualize pancreas with US -Recheck amylase and lipase Anion gap metabolic acidosis secondary to lactic acid, improving -IVF -LA now within normal limits Acute renal failure -Cr today 2.9 (Increased from yesterday) -Continue IVF -US reports unremarkable kidney bilaterally Drug use with methamphetamines and marijuana -Education Hypokalemia, hypocalcemia -Replace electrolytes Hypotension yesterday -Central line placed, levophed prn JOYCE JAMES DO 02/27/18 0525: Subjective Time Seen by a Provider: 05:18 Subjective/Events-last exam HR has improved since Precedex has been d/c'd. Pt is only requiring 21% oxygen on vent. Exam Exam General Appearance: Other (pt is intubated) HEENT: PERRL/EOMI Neck: Normal Inspection, Supple Respiratory: Normal Breath Sounds, Other (intubated) Cardiovascular: Regular Rate, Rhythm, No Edema, No JVD, No Murmur Capillary Refill: Less Than 3 Seconds Gastrointestinal: normal bowel sounds, soft, no organomegaly Extremity: Normal Capillary Refill, No Pedal Edema Neurologic/Psychiatric: Other (sedated on vent) Skin: Normal Color, Warm/Dry Assessment/Plan Assessment/Plan Acute respiratory failure -Improving -Begin ventilator wean today -Pt gets very agitated when sedation is turned down. CXR looks clear. Pt was intubated secondary to seizure/ativan. No seizure since admission. Will d/c sedation and extubate patient. Acute seizures -Continue Keppra -seizure precautions -Ativan PRN SIRS r/o Sepsis -Zosyn and Vanco -Broderick cultures pending Hyperglycemia -sliding scale insulin Pancreatitis -Unable to visualize pancreas with US -Recheck amylase and lipase Anion gap metabolic acidosis secondary to lactic acid, improving -IVF -LA now within normal limits Acute renal failure -Cr today 2.9 (Increased from yesterday) -Continue IVF -US reports unremarkable kidney bilaterally Drug use with methamphetamines and marijuana -Education Hypokalemia, hypocalcemia -Replace electrolytes Hypotension yesterday -Central line placed, levophed prn SANDRO CORMIER MED STUDENT Feb 27, 2018 04:56 JOYCE JAMES DO Feb 27, 2018 05:25
[2018-02-27] MEDS ORDERED: RT-ALBUTEROL/IPRATROPIUM 3 ML (DUONEB) VIAL INH PRN (06:00)
[2018-02-27] MEDS: VANCOMYCIN 1500 MG/NS 500 ML IVPB IV SCH ×2 (06:10)
[2018-02-27] MEDS ORDERED: FLU QUADRIvalent (5+ YOA) 2018-2019 (AFLURIA) 0.5 ML IM ONE (07:45)
--- NOTE | 2018-02-27 08:00 | Diagnostic Imaging Report ---
INDICATION: Dyspnea and diabetic ketoacidosis. Comparison made with prior examination 02/26/2018. FINDINGS: The heart size is normal. The nasogastric tube has been withdrawn and now has its tip in the mid esophagus. Endotracheal tube and central venous catheter is in satisfactory position. There is patchy right base infiltrate. There is no pleural effusion or pneumothorax. Mediastinum is unremarkable. IMPRESSION: The nasogastric tube has been partially withdrawn and now has its tip in the mid esophagus. Patchy right base infiltrate. Dictated by: Dictated on workstation # [id number]
[2018-02-27] MEDS: PANTOPRAZOLE 40 MG (PROTONIX) VIAL IV SCH (08:18)
--- NOTE | 2018-02-27 08:59 | Physical Therapy Evaluation ---
PT Evaluation-General Medical Diagnosis Admission Date Feb 26, 2018 at 01:55 Medical Diagnosis: DKA, status spilepticus Onset Date: Feb 25, 2018 Therapy Diagnosis Therapy Diagnosis: impaired mobility, endurance, balance Height/Weight Height (Feet): 6 Height (Inches): 2.00 Weight (Pounds): 265 Weight (Ounces): 0.0 Precautions Precautions/Isolations: Seizure, Fall Prevention, Standard Precautions Referral Physician: Mirian Aldrich MD Reason for Referral: Evaluation/Treatment Medical History Additional Medical History Past Medical History Surgeries: Yes (LIPOMA REMOVAL/LIVER BX) Respiratory: No Cardiac: Yes Hypertension Neurological: Yes Seizure Disorder, Stroke Genitourinary: No Gastrointestinal: No Hepatitis Musculoskeletal: No Endocrine: Yes Diabetes, Insulin dep HEENT: No Cancer: No Psychosocial: Yes Anxiety, Depression Integumentary: No Blood Disorders: Yes (HEPATITIS C) Reviewed History: Yes Social History Home: Single Level Current Living Status: Significant Other Entry Into Home: Stairs With Railing PT Steps Into Home: 4 Prior/Core FIM Prior Level of Function Therapy Code Descriptions/Definitions Functional Person Measure: 0=Not Assessed/NA 4=Minimal Assistance 1=Total Assistance 5=Supervision or Setup 2=Maximal Assistance 6=Modified Person 3=Moderate Assistance 7=Complete Person Therapy Quality Codes: 6 Independent with activity with or without an assistive device 5 Patient requires set up or clean up by helper. Patient completes activity by themselves 4 Supervision or touching assist (CGA). [place] provide cues , steadying assist 3 The helper provides less than half the effort to complete the activity 2 The helper provides more than half the effort to complete the activity 1 Dependent. The helper does all the effort to complete an activity 7 Patient refused to complete or attempt activity 9 The patient did not perform the activity before the current illness or injury 88 Not attempted due to Medical conditions or safety concerns Functional Abilities and Goals: Independent: Patient completed the activities by him/herself, with or without an assistive device, with no assistance from a helper. Needed Some Help: Patient needed partial assistance from another person to complete activities. Dependent: A helper completed the activities for the patient. Unknown: Not Applicable: Bed Mobility: 6 Transfers (B,C,W/C) (FIM): 6 Gait: 6 Stairs: 6 Indoor Mobility (Ambulation): Independent Stairs: Independent Patient used a single point cane for ambulation sometimes due to past stroke. PT Evaluation-Current Subjective Patient in recliner pre tx, agrees to PT, no complaints of pain. Patient's speech is hard to understand. He is impulsive. Pt/Family Goals to be independent at home Objective Patient Orientation: Person, Confused Attachments: IV ROM/Strength ROM Lower Extremities WNL Strength Lower Extremities right lower extremity gross 5/5, left lower extremity gross 4+/5 Sensory Vision: Functional Hearing: Functional Sensation Right Lower Extremit: Impaired Sensation Left Lower Extremity: Impaired Sensation Lower Extremities Patient has no light touch sensation in his feet Transfers Therapy Code Descriptions/Definitions Functional Person Measure: 0=Not Assessed/NA 4=Minimal Assistance 1=Total Assistance 5=Supervision or Setup 2=Maximal Assistance 6=Modified Person 3=Moderate Assistance 7=Complete Person Transfers (B, C, W/C) (FIM): 4 Sit to/from Stand: 4 bed t/f WC(FIM only if WC use): 4 Min assist for sit to stand and needs min assist for balance during transfers. He needs cues for positioning and safety, tends to "plop" down into chair. Gait Mode of Locomotion: Walk Anticipated Mode of Locomotion: Walk Gait (FIM): 2 Distance: 50' Gait Level of Assist: 4 Gait Persons Needed: 1 Gait Assistive Device: FWW Comments/Gait Description Min assist for balance, uncoordinated steps, impulsive. Assessment/Needs Patient has impaired mobility and balance. He is impulsive and needs assist with balance during transfers and ambulation. He is a high fall risk. Rehab Potential: Fair PT Short Term Goals Short Term Goals Time Frame: Mar 06, 2018 Transfers (B,C,W/C) (FIM): 5 Gait (FIM): 5 Gait Distance Comment: 150' Gait Level of Assist: 5 Gait Assistive Device: FWW PT Plan Problem List Problem List: Activity Tolerance, Functional Strength, Safety, Balance, Gait, Transfer, Bed Mobility Treatment/Plan Treatment Plan: Continue Plan of Care Treatment Plan: Bed Mobility, Education, Functional Activity Paula, Functional Strength, Gait, Safety, Therapeutic Exercise, Transfers Treatment Duration: Mar 06, 2018 Frequency: 6 times per week Estimated Hrs Per Day: .25 hour per day (15-30') Patient and/or Family Agrees t: Yes Safety Risks/Education Patient Education: Gait Training, Transfer Techniques, Correct Positioning, Safety Issues Teaching Recipient: Patient Teaching Methods: Demonstration, Discussion Response to Teaching: Reinforcement Needed Time/GCodes Time In: 829 Time Out: 0846 Total Billed Treatment Time: 16 Total Billed Treatment 1 visit [facility] Sanjay' DIANA ADEN PT Feb 27, 2018 08:59
--- NOTE | 2018-02-27 09:33 | Progress Note-Cardiology ---
Cardiology SOAP Progress Note Subjective: Does not report symptoms Seated in chair Objective: I&O/Vital Signs 02/26/18 02/26/18 02/26/18 02/26/18 22:00 22:50 23:00 23:56 Pulse 85 79 77 Resp 14 21 20 B/P (MAP) 109/59 (76) 127/59 (81) 124/58 Pulse Ox 94 95 93 O2 Delivery Mechanical Ventilator Mechanical Ventilator O2 Flow Rate 21.00 21.00 FiO2 21 02/27/18 02/27/18 02/27/18 02/27/18 00:00 00:00 00:00 00:10 Temp 99.6 Pulse 75 75 Resp 15 21 B/P (MAP) 126/60 (82) Pulse Ox 93 93 94 O2 Delivery Mechanical Ventilator Mechanical Ventilator O2 Flow Rate 21.00 21.00 FiO2 21 02/27/18 02/27/18 02/27/18 02/27/18 01:00 01:00 02:00 02:10 Pulse 76 76 82 85 Resp 20 20 21 B/P (MAP) 121/56 (77) 123/58 (79) Pulse Ox 93 93 95 O2 Delivery Mechanical Ventilator Mechanical Ventilator O2 Flow Rate 21.00 21.00 FiO2 21 02/27/18 02/27/18 02/27/18 02/27/18 03:00 03:47 04:00 04:00 Temp 97.7 Pulse 86 Resp 21 B/P (MAP) 121/56 (77) 127/56 Pulse Ox 94 95 O2 Delivery Mechanical Ventilator Mechanical Ventilator O2 Flow Rate 21.00 21.00 02/27/18 02/27/18 02/27/18 02/27/18 04:00 05:00 05:01 05:35 Pulse 86 95 95 90 Resp 20 26 18 34 B/P (MAP) 120/54 (76) 134/66 (88) 132/59 (83) Pulse Ox 95 89 92 94 O2 Delivery Mechanical Ventilator Mechanical Ventilator Nasal Cannula O2 Flow Rate 21.00 21.00 2.00 02/27/18 02/27/18 02/27/18 02/27/18 06:00 07:00 07:00 07:06 Temp 98.6 Pulse 92 90 85 Resp 27 22 B/P (MAP) 120/52 (74) 155/93 (113) Pulse Ox 97 92 94 O2 Delivery Nasal Cannula Room Air Nasal Cannula O2 Flow Rate 2.00 21.00 2.00 02/27/18 02/27/18 02/27/18 08:00 08:00 09:00 Pulse 83 87 Resp 13 9 B/P (MAP) 150/92 (111) 149/104 (119) Pulse Ox 94 94 94 O2 Delivery Room Air Room Air Room Air O2 Flow Rate 21.00 02/27/18 00:00 Intake Total 2000 ml Output Total 680 ml Balance 1320 ml Weight (Pounds): 265 Weight (Ounces): 0.0 Weight (Calculated Kilograms): 120.559123 Constitutional: other (Extubated, appears alert and oriented albeit somewhat uncomfortable and fidgety) Respiratory: other (on mech vent; good air entry bilat) Cardiovascular: regular rate-rhythm, S1 and S2, systolic murmur (soft MOLLY at card base) Gastrointestional: No tender; soft; No guarding; rebound, audible bowel sounds Extremities: No clubbing, No cyanosis, No significant edema Neurologic/Psychiatric: other (Appears to move all limbs equally) Skin: normal color, warm/dry Results/Procedures: Labs Laboratory Tests 02/26/18 09:35: Blood Gas Puncture Site ART, Blood Gas Patient Temperature 96.9, Arterial Blood pH 7.45H, Arterial Blood Partial Pressure CO2 37, Arterial Blood Partial Pressure O2 105H, Arterial Blood HCO3 26, Arterial Blood Total CO2 26.8, Arterial Blood Oxygen Saturation 99, Arterial Blood Base Excess 1.8, Hamlet Test ART LINE, Blood Gas Ventilator Setting YES, Blood Gas Inspired Oxygen 50% 02/26/18 11:20: Sodium Level 141, Potassium Level 3.6, Chloride Level 108H, Carbon Dioxide Level 24, Anion Gap 9, Blood Urea Nitrogen 22H, Creatinine 1.52H, Estimat Glomerular Filtration Rate 47, BUN/Creatinine Ratio 14, Glucose Level 214H, Calcium Level 7.8L 02/26/18 12:55: Glucometer 178H 02/26/18 15:50: Sodium Level 140, Potassium Level 3.8, Chloride Level 110H, Carbon Dioxide Level 23, Anion Gap 7, Blood Urea Nitrogen 24H, Creatinine 1.86H, Estimat Glomerular Filtration Rate 37, BUN/Creatinine Ratio 13, Glucose Level 155H, Calcium Level 8.0L 02/26/18 16:55: White Blood Count 13.8H, Red Blood Count 4.23L, Hemoglobin 12.5L, Hematocrit 37L , Mean Corpuscular Volume 88, Mean Corpuscular Hemoglobin 30, Mean Corpuscular Hemoglobin Concent 34, Red Cell Distribution Width 12.9, Platelet Count 240, Mean Platelet Volume 10.4, Neutrophils (%) (Auto) 88H, Lymphocytes (%) (Auto) 7L , Monocytes (%) (Auto) 6, Eosinophils (%) (Auto) 0, Basophils (%) (Auto) 0, Neutrophils # (Auto) 12.1H, Lymphocytes # (Auto) 0.9L, Monocytes # (Auto) 0.8, Eosinophils # (Auto) 0.0, Basophils # (Auto) 0.0, Neutrophils % (Manual) 89, Lymphocytes % (Manual) 6, Monocytes % (Manual) 4, Eosinophils % (Manual) 0, Basophils % (Manual) 0, Band Neutrophils 1, Blood Morphology Comment NORMAL, Sodium Level 140, Potassium Level 3.9, Chloride Level 112H, Carbon Dioxide Level 20L, Anion Gap 8, Blood Urea Nitrogen 23H, Creatinine 1.82H, Estimat Glomerular Filtration Rate 38, BUN/Creatinine Ratio 13, Glucose Level 149H, Lactic Acid Level 1.91, Calcium Level 7.7L, Corrected Calcium 8.7, Phosphorus Level 2.0L, Magnesium Level 1.7L, Total Bilirubin 0.3, Aspartate Amino Transf ( AST/SGOT) 17, Alanine Aminotransferase (ALT/SGPT) 22, Alkaline Phosphatase 80, Total Protein 4.6L, Albumin 2.8L 02/26/18 20:00: Glucometer 184H 02/27/18 00:00: Glucometer 196H 02/27/18 03:35: White Blood Count 14.9H, Red Blood Count 4.13L, Hemoglobin 12.4L, Hematocrit 36L , Mean Corpuscular Volume 87, Mean Corpuscular Hemoglobin 30, Mean Corpuscular Hemoglobin Concent 35, Red Cell Distribution Width 13.3, Platelet Count 285, Mean Platelet Volume 9.8, Neutrophils (%) (Auto) 78H, Lymphocytes (%) (Auto) 14 , Monocytes (%) (Auto) 8, Eosinophils (%) (Auto) 0, Basophils (%) (Auto) 0, Neutrophils # (Auto) 11.5H, Lymphocytes # (Auto) 2.2, Monocytes # (Auto) 1.2H, Eosinophils # (Auto) 0.0, Basophils # (Auto) 0.0, Sodium Level 141, Potassium Level 3.4L, Chloride Level 112H, Carbon Dioxide Level 20L, Anion Gap 9, Blood Urea Nitrogen 22H, Creatinine 2.09H, Estimat Glomerular Filtration Rate 33, BUN/ Creatinine Ratio 11, Glucose Level 155H, Calcium Level 7.8L, Phosphorus Level 2.5, Magnesium Level 1.9, Blood Gas Puncture Site R GEMMA, Blood Gas Patient Temperature 97.7, Arterial Blood pH 7.41, Arterial Blood Partial Pressure CO2 36 , Arterial Blood Partial Pressure O2 67L, Arterial Blood HCO3 22L, Arterial Blood Total CO2 23.6, Arterial Blood Oxygen Saturation 95, Arterial Blood Base Excess -1.6, Hamlet Test ART LINE, Blood Gas Ventilator Setting YES, Blood Gas Inspired Oxygen 21% 02/27/18 08:10: Glucometer 154H Microbiology 02/26/18 Blood Culture - Preliminary, Resulted No growth 02/26/18 Gram Stain - Final, Resulted 02/26/18 Sputum Culture, Resulted Pending Laboratory Tests 02/25/18 23:35 02/26/18 02:50 02/26/18 07:01 02/26/18 11:20 02/26/18 15:50 02/26/18 16:55 02/27/18 03:35 A/P: Assessment: Transient bradycardia (sinus guanaco alternating with junctional rhythm with heart rate approx 45 bpm) No evidence of A Flutter or A Fib, so far Seizure with status epilepticus at presentation (according to this hospitalization records) DM II with DKA (according to this hospitalization records) Acute renal failure, managed by the Med Svce H/o CVA in 2013 (speech impairment) followed and treated by his pcp H/o noncompliance with meds (according to this hospitalization records) Hypertension Plan: * Complex management due to multiple comorbidities (see above) * Restart amlodipine therapy because of htn * Monitor labs ELBA BALDERAS MD FACP FAC CCDS Feb 27, 2018 09:33
--- NOTE | 2018-02-27 11:20 | Progress Note (SOAP) ---
Subjective Subjective/Events-last exam Patient extubated this AM. Feeling much better. Sitting up in chair talking and taking sips of water w/o difficultly. Review of Systems Date Seen by Provider: Feb 27, 2018 Time Seen by Provider: 09:35 Pulmonary: No Dyspnea; Cough Cardiovascular: No: Chest Pain, Palpitations Gastrointestinal: No: Nausea, Vomiting, Abdominal Pain, Diarrhea, Constipation Genitourinary: No Dysuria, No Frequency Focused Exam Lactate Level 02/26/18 07:01: Lactic Acid Level 2.14*H 02/26/18 09:05: Lactic Acid Level 1.07 02/26/18 16:55: Lactic Acid Level 1.91 Objective Exam Last Set of Vital Signs Vital Signs Date Time Temp Pulse Resp B/P (MAP) Pulse Ox O2 Delivery O2 Flow Rate FiO2 02/27/18 09:00 87 9 149/104 (119) 94 Room Air 02/27/18 08:00 21.00 02/27/18 07:00 98.6 02/27/18 02:10 21 Capillary Refill : Less Than 3 SecondsLess Than 3 Seconds I&O Intake and Output 02/27/18 00:00 Intake Total 6220 ml Output Total 1280 ml Balance 4940 ml Intake IV Total 6220 ml Output Urine Total 1280 ml Daily Weight Change Unsure General: Alert, Oriented X3, Cooperative, No Acute Distress HEENT: Mucous Memb Moist/[place] Lungs: Clear to Auscultation, Normal Air Movement Heart: Regular Rate, No Murmurs Abdomen: Normal Bowel Sounds, Soft, No Tenderness, No Masses Extremities: No Edema, No Tenderness/Swelling Skin: No Rashes, No Breakdown Neuro: Sensation Intact, Cranial Nerves 3-12 NL, Other (muscle soreness with palpation) Psych/Mental Status: Mental Status NL, Mood NL Results/Procedures Lab Laboratory Tests 02/26/18 11:20: Sodium Level 141, Potassium Level 3.6, Chloride Level 108H, Carbon Dioxide Level 24, Anion Gap 9, Blood Urea Nitrogen 22H, Creatinine 1.52H, Estimat Glomerular Filtration Rate 47, BUN/Creatinine Ratio 14, Glucose Level 214H, Calcium Level 7.8L 02/26/18 12:55: Glucometer 178H 02/26/18 15:50: Sodium Level 140, Potassium Level 3.8, Chloride Level 110H, Carbon Dioxide Level 23, Anion Gap 7, Blood Urea Nitrogen 24H, Creatinine 1.86H, Estimat Glomerular Filtration Rate 37, BUN/Creatinine Ratio 13, Glucose Level 155H, Calcium Level 8.0L 02/26/18 16:55: Sodium Level 140, Potassium Level 3.9, Chloride Level 112H, Carbon Dioxide Level 20L, Anion Gap 8, Blood Urea Nitrogen 23H, Creatinine 1.82H, Estimat Glomerular Filtration Rate 38, BUN/Creatinine Ratio 13, Glucose Level 149H, Calcium Level 7.7L, White Blood Count 13.8H, Red Blood Count 4.23L, Hemoglobin 12.5L, Hematocrit 37L, Mean Corpuscular Volume 88, Mean Corpuscular Hemoglobin 30, Mean Corpuscular Hemoglobin Concent 34, Red Cell Distribution Width 12.9, Platelet Count 240, Mean Platelet Volume 10.4, Neutrophils (%) (Auto) 88H, Lymphocytes (%) (Auto) 7L, Monocytes (%) (Auto) 6, Eosinophils (%) (Auto) 0, Basophils (%) (Auto) 0, Neutrophils # (Auto) 12.1H, Lymphocytes # (Auto) 0.9L, Monocytes # (Auto) 0.8, Eosinophils # (Auto) 0.0, Basophils # (Auto) 0.0, Neutrophils % (Manual) 89, Lymphocytes % (Manual) 6, Monocytes % (Manual) 4, Eosinophils % (Manual) 0, Basophils % (Manual) 0, Band Neutrophils 1, Blood Morphology Comment NORMAL, Lactic Acid Level 1.91, Corrected Calcium 8.7, Phosphorus Level 2.0L, Magnesium Level 1.7L, Total Bilirubin 0.3, Aspartate Amino Transf (AST/SGOT) 17, Alanine Aminotransferase (ALT/SGPT) 22, Alkaline Phosphatase 80, Total Protein 4.6L, Albumin 2.8L 02/26/18 20:00: Glucometer 184H 02/27/18 00:00: Glucometer 196H 02/27/18 03:35: White Blood Count 14.9H, Red Blood Count 4.13L, Hemoglobin 12.4L, Hematocrit 36L , Mean Corpuscular Volume 87, Mean Corpuscular Hemoglobin 30, Mean Corpuscular Hemoglobin Concent 35, Red Cell Distribution Width 13.3, Platelet Count 285, Mean Platelet Volume 9.8, Neutrophils (%) (Auto) 78H, Lymphocytes (%) (Auto) 14 , Monocytes (%) (Auto) 8, Eosinophils (%) (Auto) 0, Basophils (%) (Auto) 0, Neutrophils # (Auto) 11.5H, Lymphocytes # (Auto) 2.2, Monocytes # (Auto) 1.2H, Eosinophils # (Auto) 0.0, Basophils # (Auto) 0.0, Blood Gas Puncture Site R GEMMA, Blood Gas Patient Temperature 97.7, Arterial Blood pH 7.41, Arterial Blood Partial Pressure CO2 36, Arterial Blood Partial Pressure O2 67L, Arterial Blood HCO3 22L, Arterial Blood Total CO2 23.6, Arterial Blood Oxygen Saturation 95, Arterial Blood Base Excess -1.6, Hamlet Test ART LINE, Blood Gas Ventilator Setting YES, Blood Gas Inspired Oxygen 21%, Sodium Level 141, Potassium Level 3.4L, Chloride Level 112H, Carbon Dioxide Level 20L, Anion Gap 9, Blood Urea Nitrogen 22H, Creatinine 2.09H, Estimat Glomerular Filtration Rate 33, BUN/ Creatinine Ratio 11, Glucose Level 155H, Calcium Level 7.8L, Phosphorus Level 2.5, Magnesium Level 1.9 02/27/18 08:10: Glucometer 154H Microbiology 02/26/18 Blood Culture - Preliminary, Resulted No growth 02/26/18 Gram Stain - Final, Resulted 02/26/18 Sputum Culture, Resulted Pending Assessment/Plan Assessment/Plan (1) Respiratory failure with hypoxia Status: Resolved Assessment & Plan: - Currently intubated, Dr Gilliam managing, weaning trial tomorrow 02/27- Extubated this AM, titrate NC as tolerated, transfer to floor Qualifiers: Qualified Codes: J96.01 - Acute respiratory failure with hypoxia (2) Metabolic acidosis Status: Resolved Assessment & Plan: - Not DKA, will continue SSI insulin, likely combined metabolic and respiratory acidosis, acidosis corrected this AM, Continue with IVF hydration (3) Status epilepticus Status: Acute Assessment & Plan: - Patient had not been taking meds, keppra loading IV, Sz precautions 02/27- transition patient to PO keppra, continue to monitor ON, home in AM (4) Acute kidney failure Status: Acute Assessment & Plan: - IVF hydration, continue to monitor Cr daily 02/27- Continues to trend up, will continue IVFs, BMP in AM Qualifiers: Qualified Codes: N17.9 - Acute kidney failure, unspecified (5) SIRS (systemic inflammatory response syndrome) Status: Acute Assessment & Plan: - Start broad spectrum antibiotics (6) Methamphetamine abuse Status: Acute (7) Hypokalemia Status: Acute Assessment & Plan: 02/27- Replace PO, repeat BMP in AM (8) Non-compliance Status: Acute (9) DVT prophylaxis Status: Acute Assessment & Plan: Lovenox Clinical Quality Measures DVT/VTE Risk/Contraindication: Risk Factor Score Per Nursin RFS Level Per Nursing on Admit: 3=High NERY KELLY MD Feb 27, 2018 11:19
--- NOTE | 2018-02-27 11:29 | Occupational Therapy Eval ---
OT Evaluation-General/PLF Medical Diagnosis Admission Date Feb 26, 2018 at 01:55 Medical Diagnosis: DKA, status spilepticus Onset Date: Feb 25, 2018 Therapy Diagnosis Therapy Diagnosis: impaired self care skills Height/Weight Height (Feet): 6 Height (Inches): 2.00 Weight (Pounds): 265 Weight (Ounces): 0.0 Precautions Precautions/Isolations: Seizure, Fall Prevention, Standard Precautions Safety Interventions: Bed Exit Alarm Referral Physician: Mirian Aldrich MD Medical History Pertinent Medical History: CVA, HTN Additional Medical History seizure disorder, Hepatitis C, anxiety, depression Current History Pt admitted with DKA, seizures Reviewed History: Yes Social History Home: Single Level Current Living Status: Significant Other Entry Into Home: Stairs With Railing Steps Into Home: 4 ADL-Prior Level of Function Therapy Code Descriptions/Definitions Functional [place] Measure: 0=Not Assessed/NA 4=Minimal Assistance 1=Total Assistance 5=Supervision or Setup 2=Maximal Assistance 6=Modified [place] 3=Moderate Assistance 7=Complete [place] Therapy Quality Codes: 6 Independent with activity with or without an assistive device 5 Patient requires set up or clean up by helper. Patient completes activity by themselves 4 Supervision or touching assist (CGA). [place] provide cues , steadying assist 3 The helper provides less than half the effort to complete the activity 2 The helper provides more than half the effort to complete the activity 1 Dependent. The helper does all the effort to complete an activity 7 Patient refused to complete or attempt activity 9 The patient did not perform the activity before the current illness or injury 88 Not attempted due to Medical conditions or safety concerns Functional Abilities and Goals: Independent: Patient completed the activities by him/herself, with or without an assistive device, with no assistance from a helper. Needed Some Help: Patient needed partial assistance from another person to complete activities. Dependent: A helper completed the activities for the patient. Unknown: Not Applicable: ADL PLOF Comments Pt states he was independent prior to admission Self Care: Independent OT Current Status Subjective Pt sitting in chair, drowsy, but agrees to evaluation. Mental Status/Objective Patient Orientation: Person Attachments: IV, Oxygen Current Dentures/Partials: No Hand Dominance: Right Upper Extremity ROM Pt moves bilateral UE spontaneously without difficulty. Pt has some difficulty following directions for ROM testing. Significant other states pt "chipped" a bone in the left wrist ~8 weeks ago. Was wearing a splint, but states he no longer has to wear the splint and has no restrictions, can use as tolerated. She also states pt recently cut palm of left hand and had stitches. States he now has decreased sensation in left hand. Upper Extremity Coordination Fair ADL-Treatment ADL-Current Pt participated in UE assessment as tolerated. Pt is sliding down in chair and is able to reposition with verbal cues for technique. Pt is impulsive with movement and requires cues for safety. Declined standing or transferring at this time. Pt reports urgent need to use urinal. Pt requires assist to place urinal, but is then able to hold it in place. Pt declined further activity at this time, states he needs to sleep. Pt sitting in chair with needs met after session, RN notified. Will further assess ADLs in future sessions. Therapy Code Descriptions/Definitions Functional [place] Measure: 0=Not Assessed/NA 4=Minimal Assistance 1=Total Assistance 5=Supervision or Setup 2=Maximal Assistance 6=Modified [place] 3=Moderate Assistance 7=Complete [place] Therapy Quality Codes: 6 Independent with activity with or without an assistive device 5 Patient requires set up or clean up by helper. Patient completes activity by themselves 4 Supervision or touching assist (CGA). [place] provide cues , steadying assist 3 The helper provides less than half the effort to complete the activity 2 The helper provides more than half the effort to complete the activity 1 Dependent. The helper does all the effort to complete an activity 7 Patient refused to complete or attempt activity 9 The patient did not perform the activity before the current illness or injury 88 Not attempted due to Medical conditions or safety concerns OT Short Term Goals Short Term Goals Transfers (B,C,W/C) (FIM): 5 1=Demonstrate adherence to instructed precautions during ADL tasks. 2=Patient will verbalize/demonstrate understanding of assistive devices/ modifications for ADL. 3=Patient will improve strength/tolerance for activity to enable patient to perform ADL's. OT Production Welding Supervisor Goals Senior Living Goals Time Frame: Mar 09, 2018 Eating (FIM): 6 Grooming(FIM): 5 Upper Body Dressing(FIM): 5 Lower Body Dressing(FIM): 5 Toileting(FIM): 5 Toilet/Commode Transfer(FIM): 5 Additional Goals: 1-Demonstrate ADL Tasks, 2-Verbalize Understanding, 3- ImproveStrength/Paula 1=Demonstrate adherence to instructed precautions during ADL tasks. 2=Patient will verbalize/demonstrate understanding of assistive devices/ modifications for ADL. 3=Patient will improve strength/tolerance for activity to enable patient to perform ADL's. OT Education/Plan Problem List/Assessment Assessment: Decreased Activ Tolerance, Decreased UE Strength, Dependent Transfers, Impaired Self-Care Skills Pt to benefit from skilled OT intervention for ADL training, transfers, strengthening, and safety education to increase functional independence and allow safe discharge. Discharge Recommendations Plan/Recommendations: Continue POC Treatment Plan/Plan of Care Treatment,Training & Education: Yes Patient would benefit from OT for education, treatment and training to promote independence in ADL's, mobility, safety and/or upper extremity function for ADL' s. Plan of Care: ADL Retraining, Functional Mobility, UE Funct Exercise/Act Treatment Duration: Mar 09, 2018 Frequency: 5 times per week Estimated Hrs Per Day: .25 hour per day Rehab Potential: Fair Time/GCodes Start Time: 09:58 Stop Time: 10:15 Total Time Billed (hr/min): 17 Billed Treatment Time 1 visit, ANAND(17minutes) YOGI MOJICA OT Feb 27, 2018 11:29
[2018-02-27] MEDS ORDERED: TROUGH ORDER-PHARMACY XX NR (18:00)
[2018-02-27] MEDS ORDERED: KCL 20 MEQ TAB (K-DUR) PO ONE (20:30)
[2018-02-27] MEDS ORDERED: inSUlin ASPART (NovoLOG) 1 UNIT/0.01 ML (CHARGE PER UNIT) SQ SCH (21:00)
[2018-02-27] MEDS: LEVETIRACETAM 1,000 MG (KEPPRA) TABLET PO SCH (21:24)
[2018-02-27] MEDS: ENOXAPARIN 40 MG/0.4 ML (LOVENOX) SYR SQ SCH (21:24)
[2018-02-28 00:35] VITALS: BP 143/70
[2018-02-28] MEDS: LACTATED RINGERS 1,000 ML IV SCH (03:43)
[2018-02-28 04:00] VITALS: BP 150/78
[2018-02-28] MEDS: PIPERACILLIN/TAZO 4.5 GM/NS 100 ML IV SCH ×6 (04:51→21:19)
[2018-02-28 05:11] LABS: BASOPHILS % (AUTO) 1 % (0-10); EOSINOPHILS # (AUTO) 0.2 10^3/uL (0.0-0.3); EOSINOPHILS % (AUTO) 3 % (0-10); HEMATOCRIT 38 % (40-54); LYMPHOCYTES # (AUTO) 1.8 X 10^3 (1.0-4.0); LYMPHOCYTES % (AUTO) 21 % (12-44); MEAN CORPUSCULAR HEMOGLOBIN 30 PG (25-34); MEAN CORPUSCULAR HGB CONC 34 G/DL (32-36); MEAN CORPUSCULAR VOLUME 88 FL (80-99); MEAN PLATELET VOLUME 9.7 FL (7.4-10.4); MONOCYTES # (AUTO) 0.8 X 10^3 (0.0-1.0); MONOCYTES % (AUTO) 9 % (0-12); NEUTROPHILS # (AUTO) 5.9 X 10^3 (1.8-7.8); NEUTROPHILS % (AUTO) 67 % (42-75); PLATELET COUNT 230 10^3/uL (130-400); RED BLOOD COUNT 4.33 10^6/uL (4.35-5.85); RED CELL DISTRIBUTION WIDTH 13.2 % (10.0-14.5); WHITE BLOOD COUNT 8.7 10^3/uL (4.3-11.0)
[2018-02-28 05:25] LABS: CALCIUM 8.5 MG/DL (8.5-10.1); CREATININE SERUM 1.44 MG/DL (0.60-1.30); POTASSIUM 3.7 MMOL/L (3.6-5.0)
[2018-02-28 05:33] LABS: VANCOMYCIN,TROUGH 13.9 UG/ML (10.0-20.0)
[2018-02-28] MEDS: inSUlin ASPART (NovoLOG) 1 UNIT/0.01 ML (CHARGE PER UNIT) SQ SCH ×4 (05:38→21:19)
[2018-02-28] MEDS ORDERED: TROUGH ORDER-PHARMACY XX NR (06:00)
--- NOTE | 2018-02-28 06:54 | Pulmonary Progress Note ---
Subjective Date Seen by a Provider: Feb 28, 2018 Time Seen by a Provider: 06:49 Subjective/Events-last exam Patient reports no overnight events. He is not experiencing cough or SOB. Says his throat is a little sore since extubation. Sepsis Event Evaluation Height, Weight, BMI Height: 6'2.00" Weight: 265lbs. 0.0oz. 120.435028ct; 27.73 BMI Method:Estimated Focused Exam Lactate Level 02/26/18 07:01: Lactic Acid Level 2.14*H 02/26/18 09:05: Lactic Acid Level 1.07 02/26/18 16:55: Lactic Acid Level 1.91 Respiratory: Chest Non Tender, No Accessory Muscle Use, No Respiratory Distress , Other (sats 96 on 2L O2 via nasal canula) Cardiovascular: Regular Rate, Rhythm, No Murmur Skin: normal color, warm/dry Exam Exam Vital Signs Date Time Temp Pulse Resp B/P (MAP) Pulse Ox O2 Delivery O2 Flow Rate FiO2 02/28/18 04:00 Nasal Cannula 2.00 02/28/18 01:00 85 02/28/18 00:35 98.5 80 18 143/70 (94) 96 Nasal Cannula 2.00 02/28/18 00:14 Nasal Cannula 2.00 02/27/18 20:00 97.1 79 18 165/86 (112) 96 Nasal Cannula 2.00 02/27/18 20:00 Nasal Cannula 2.00 02/27/18 19:41 Nasal Cannula 2.00 02/27/18 19:00 91 02/27/18 16:30 Nasal Cannula 2.00 02/27/18 16:10 97.9 76 20 166/92 (116) 93 Nasal Cannula 2.00 02/27/18 13:07 82 02/27/18 12:00 89 36 150/97 (114) Room Air 02/27/18 12:00 94 Room Air 21.00 02/27/18 11:00 82 20 159/95 (116) Room Air 02/27/18 10:00 86 142/92 (109) 95 Room Air 02/27/18 09:00 87 9 149/104 (119) 94 Room Air 02/27/18 08:00 94 Room Air 21.00 02/27/18 08:00 83 13 150/92 (111) 94 Room Air 02/27/18 07:06 94 Nasal Cannula 2.00 02/27/18 07:00 98.6 85 22 155/93 (113) 92 Room Air 21.00 02/27/18 07:00 90 I & O 02/28/18 07:00 Intake Total 1270 ml Output Total 1900 ml Balance -630 ml Height & Weight Height: 6'2.00" Weight: 265lbs. 0.0oz. 120.466013mt; 27.73 BMI Method:Estimated General Appearance: No Apparent Distress, WD/WN, Other (pt is intubated) Neck: Normal Inspection, Supple Respiratory: Chest Non Tender, No Accessory Muscle Use, No Respiratory Distress , Other (on 2L nasal canula) Cardiovascular: Regular Rate, Rhythm, No Edema, No JVD, No Murmur Capillary Refill: Less Than 3 Seconds Gastrointestinal: normal bowel sounds, soft, no organomegaly Extremity: Normal Capillary Refill, No Pedal Edema Skin: Normal Color, Warm/Dry Results Lab Laboratory Tests 02/26/18 07:01 02/26/18 11:20 02/26/18 15:50 02/26/18 16:55 02/27/18 03:35 02/28/18 05:00 Assessment/Plan Assessment/Plan Acute respiratory failure -Resolved -Patient doing well off ventilator therapy -Sat 96 on 2L via nasal canula CXR showed new RLL infiltrate, patchy -continue zosyn -repeat CXR Acute seizures -Continue Keppra -seizure precautions -Ativan PRN Hyperglycemia -sliding scale insulin Pancreatitis -Unable to visualize pancreas with US -Recheck amylase and lipase Acute renal failure -Cr improving today 1.44 -Continue IVF -US reports unremarkable kidney bilaterally Drug use with methamphetamines and marijuana -Education Hypotension -resolved SANDRO CORMIER MED STUDENT Feb 28, 2018 06:54
[2018-02-28] MEDS ORDERED: VANCOMYCIN 1500 MG/NS 500 ML IVPB IV SCH ×2 (07:00)
[2018-02-28 08:00] VITALS: BP 156/79
--- NOTE | 2018-02-28 09:07 | Occupational Ther Daily Note ---
OT Current Status-Daily Note Subjective Pt alert, sitting in recliner. Pt agrees to therapy. No c/o pain at this time. Pt confused, is able to follow simple directions. Mental Status/Objective Patient Orientation: Person Therapy Code Descriptions/Definitions Functional [place] Measure: 0=Not Assessed/NA 4=Minimal Assistance 1=Total Assistance 5=Supervision or Setup 2=Maximal Assistance 6=Modified [place] 3=Moderate Assistance 7=Complete [place] Attachments: IV, Oxygen ADL-Treatment Pt agrees to sponge bath. Pt able to wash all areas except feet. Stood with CGA to cleanse buttocks and [place] area. Pt requires assist to doff/don hospital gown due to IV tubing. Sitting with feet elevated, pt able to don/doff socks. Declines to complete oral care. Is able to wash face, hands and comb hair. After therapy, pt sitting in recliner with call light/phone in reach. Family present in room. All needs met in room. Grooming (FIM): 6 Bathing (FIM): 4 Bathing Location: L Arm, R Arm, L Upper Leg, R Upper Leg, Chest, Abdomen, Buttocks, Perineal Area Lower Body Dressing (FIM): 5 OT Short Term Goals Short Term Goals Transfers (B,C,W/C) (FIM): 5 1=Demonstrate adherence to instructed precautions during ADL tasks. 2=Patient will verbalize/demonstrate understanding of assistive devices/ modifications for ADL. 3=Patient will improve strength/tolerance for activity to enable patient to perform ADL's. OT Electrician Journeyman Wireman Goals Electrician Journeyman Wireman Goals Time Frame: Mar 09, 2018 Eating (FIM): 6 Grooming(FIM): 5 Upper Body Dressing(FIM): 5 Lower Body Dressing(FIM): 5 Toileting(FIM): 5 Toilet/Commode Transfer(FIM): 5 Additional Goals: 1-Demonstrate ADL Tasks, 2-Verbalize Understanding, 3- ImproveStrength/[place] 1=Demonstrate adherence to instructed precautions during ADL tasks. 2=Patient will verbalize/demonstrate understanding of assistive devices/ modifications for ADL. 3=Patient will improve strength/tolerance for activity to enable patient to perform ADL's. OT Education/Plan Problem List/Assessment Pt to benefit from skilled OT intervention for ADL training, transfers, strengthening, and safety education to increase functional independence and allow safe discharge. Discharge Recommendations Plan/Recommendations: Continue POC Treatment Plan/Plan of Care Patient would benefit from OT for education, treatment and training to promote independence in ADL's, mobility, safety and/or upper extremity function for ADL' s. Plan of Care: ADL Retraining, Functional Mobility, UE Funct Exercise/Act Treatment Duration: Mar 09, 2018 Frequency: 5 times per week Estimated Hrs Per Day: .25 hour per day Rehab Potential: Fair Time/GCodes Start Time: 08:39 Stop Time: 09:02 Total Time Billed (hr/min): 23 Billed Treatment Time 1 visit-ADL 2 (23 min) TALIA JONES Feb 28, 2018 09:07
[2018-02-28] MEDS ORDERED: amLODIPine 10 MG (NORVASC) TAB PO NR (09:50)
--- NOTE | 2018-02-28 09:59 | Progress Note-Cardiology ---
Cardiology SOAP Progress Note Subjective: Sitting in a recliner at the bedside. Family x 1 at the bedside. He reports no c/o CP or palpitations. Feels SOB has improved. C/O gen weakness. Objective: I&O/Vital Signs 02/28/18 02/28/18 02/28/18 02/28/18 00:14 00:35 01:00 04:00 Temp 98.5 Pulse 80 85 Resp 18 B/P (MAP) 143/70 (94) Pulse Ox 96 O2 Delivery Nasal Cannula Nasal Cannula Nasal Cannula O2 Flow Rate 2.00 2.00 2.00 02/28/18 02/28/18 02/28/18 04:00 07:47 08:00 Temp 97.9 98.5 Pulse 81 73 87 Resp 18 16 B/P (MAP) 150/78 (102) 156/79 (104) Pulse Ox 96 96 O2 Delivery Nasal Cannula Nasal Cannula O2 Flow Rate 2.00 2.00 02/28/18 00:00 Intake Total 670 ml Output Total 600 ml Balance 70 ml Weight (Pounds): 265 Weight (Ounces): 0.0 Weight (Calculated Kilograms): 120.586534 Constitutional: other (Extubated, appears alert and oriented albeit somewhat uncomfortable and fidgety) Respiratory: other (on mech vent; good air entry bilat) Cardiovascular: regular rate-rhythm, S1 and S2, systolic murmur (soft MOLLY at card base) Gastrointestional: No tender; soft; No guarding; rebound, audible bowel sounds Extremities: No clubbing, No cyanosis, No significant edema Neurologic/Psychiatric: other (Appears to move all limbs equally) Skin: normal color, warm/dry Results/Procedures: Labs Laboratory Tests 02/27/18 12:25: Glucometer 164H 02/27/18 16:16: Glucometer 213H 02/27/18 17:42: Vancomycin Level Trough 22.7H 02/27/18 19:04: Glucometer 233H 02/27/18 20:23: Glucometer 281H 02/27/18 23:23: Glucometer 173H 02/28/18 05:00: White Blood Count 8.7, Red Blood Count 4.33L, Hemoglobin 13.0L, Hematocrit 38L, Mean Corpuscular Volume 88, Mean Corpuscular Hemoglobin 30, Mean Corpuscular Hemoglobin Concent 34, Red Cell Distribution Width 13.2, Platelet Count 230, Mean Platelet Volume 9.7, Neutrophils (%) (Auto) 67, Lymphocytes (%) (Auto) 21, Monocytes (%) (Auto) 9, Eosinophils (%) (Auto) 3, Basophils (%) (Auto) 1, Neutrophils # (Auto) 5.9, Lymphocytes # (Auto) 1.8, Monocytes # (Auto) 0.8, Eosinophils # (Auto) 0.2, Basophils # (Auto) 0.0, Sodium Level 144, Potassium Level 3.7, Chloride Level 111H, Carbon Dioxide Level 23, Anion Gap 10, Blood Urea Nitrogen 18, Creatinine 1.44H, Estimat Glomerular Filtration Rate 50, BUN/ Creatinine Ratio 13, Glucose Level 136H, Calcium Level 8.5, Vancomycin Level Trough 13.9 02/28/18 06:08: Glucometer 158H Microbiology 02/26/18 Blood Culture - Preliminary, Resulted No growth 02/26/18 Gram Stain - Final, Resulted 02/26/18 Sputum Culture - Preliminary, Resulted Usual upper respiratory bj A/P: Assessment: Transient bradycardia (sinus guanaco alternating with junctional rhythm with heart rate approx 45 bpm) No evidence of A Flutter or A Fib, so far Seizure with status epilepticus at presentation (according to this hospitalization records) DM II with DKA (according to this hospitalization records) Acute renal failure, managed by the Med Svce H/o CVA in 2013 (speech impairment) followed and treated by his pcp H/o noncompliance with meds (according to this hospitalization records) Hypertension Plan: * Complex management due to multiple comorbidities (see above) * Resume Norvasc for BP control * Will refrain from re-starting Benicar/HCTZ d/t renal function * Monitor labs MUKUND SOSA Feb 28, 2018 09:59
--- NOTE | 2018-02-28 10:59 | Physical Therapy Daily Note ---
PT Daily Note-Current Subjective Patient agrees to PT. Mental Status Patient Orientation: Normal For Age Attachments: IV Transfers Therapy Code Descriptions/Definitions Functional [place] Measure: 0=Not Assessed/NA 4=Minimal Assistance 1=Total Assistance 5=Supervision or Setup 2=Maximal Assistance 6=Modified [place] 3=Moderate Assistance 7=Complete [place] Therapy Quality Codes: 6 Independent with activity with or without an assistive device 5 Patient requires set up or clean up by helper. Patient completes activity by themselves 4 Supervision or touching assist (CGA). [place] provide cues , steadying assist 3 The helper provides less than half the effort to complete the activity 2 The helper provides more than half the effort to complete the activity 1 Dependent. The helper does all the effort to complete an activity 7 Patient refused to complete or attempt activity 9 The patient did not perform the activity before the current illness or injury 88 Not attempted due to Medical conditions or safety concerns Transfers (B, C, W/C) (FIM): 7 Scootin Rollin Supine to/from Sit: 7 Sit to/from Stand: 7 Gait Training Gait (FIM): 6 Distance (FIM): 3=150 ft Distance: 400' Gait Level of Assist: 6 Gait Assistive Device: FWW safe and functional Assessment Dr. Gilliam in to see patient and requested PT remove O2 with activity and report after. Patient SAO2 on RA after ambulating 400' is 95% with Dr. Gilliam notified. PT Short Term Goals Short Term Goals Time Frame: Mar 06, 2018 Transfers (B,C,W/C) (FIM): 5 Gait (FIM): 5 Gait Distance Comment: 150' Gait Level of Assist: 5 Gait Assistive Device: FWW PT Plan Treatment/Plan Treatment Plan: Continue Plan of Care Treatment Plan: Bed Mobility, Education, Functional Activity [place], Functional Strength, Gait, Safety, Therapeutic Exercise, Transfers Treatment Duration: Mar 06, 2018 Frequency: 6 times per week Estimated Hrs Per Day: .25 hour per day (15-30') Patient and/or Family Agrees t: Yes Time/GCodes Time In: 1041 Time Out: 1051 Total Billed Treatment Time: 10 Total Billed Treatment 1 visit FA 10 min LORIE QUEVEDO PT Feb 28, 2018 10:59
[2018-02-28] MEDS: LEVETIRACETAM 1,000 MG (KEPPRA) TABLET PO SCH ×2 (11:47→21:18)
[2018-02-28 12:00] VITALS: BP 160/88
[2018-02-28 16:00] VITALS: BP 145/79
[2018-02-28] MEDS: ENOXAPARIN 40 MG/0.4 ML (LOVENOX) SYR SQ SCH (18:06)
--- NOTE | 2018-02-28 19:43 | Progress Note (SOAP) ---
Subjective Subjective/Events-last exam Doing better this AM. On 2L NC. No seizure activity since admission. Has been up to chair this AM. Review of Systems Date Seen by Provider: Feb 28, 2018 Time Seen by Provider: 09:15 Pulmonary: Dyspnea; No Cough Cardiovascular: No: Chest Pain, Palpitations Gastrointestinal: No: Nausea, Vomiting, Abdominal Pain Neurological: Weakness Focused Exam Lactate Level 02/26/18 07:01: Lactic Acid Level 2.14*H 02/26/18 09:05: Lactic Acid Level 1.07 02/26/18 16:55: Lactic Acid Level 1.91 Objective Exam Last Set of Vital Signs Vital Signs Date Time Temp Pulse Resp B/P (MAP) Pulse Ox O2 Delivery O2 Flow Rate FiO2 02/28/18 19:00 100 02/28/18 16:00 97.9 19 145/79 (101) 96 Room Air 02/28/18 08:00 2.00 02/27/18 02:10 21 Capillary Refill : Less Than 3 SecondsLess Than 3 Seconds I&O Intake and Output 02/28/18 00:00 Intake Total 670 ml Output Total 2415 ml Balance -1745 ml Intake Oral 670 ml Output Urine Total 2415 ml # Voids 2 # Bowel Movements 1 General: Alert, Oriented X3 Lungs: Normal Air Movement, Other (diminished breath sounds, normal work of breathing) Heart: Regular Rate, No Murmurs Abdomen: Normal Bowel Sounds, Soft, No Tenderness Extremities: No Edema, No Tenderness/Swelling Skin: No Rashes Results/Procedures Lab Laboratory Tests 02/27/18 20:23: Glucometer 281H 02/27/18 23:23: Glucometer 173H 02/28/18 05:00: White Blood Count 8.7, Red Blood Count 4.33L, Hemoglobin 13.0L, Hematocrit 38L, Mean Corpuscular Volume 88, Mean Corpuscular Hemoglobin 30, Mean Corpuscular Hemoglobin Concent 34, Red Cell Distribution Width 13.2, Platelet Count 230, Mean Platelet Volume 9.7, Neutrophils (%) (Auto) 67, Lymphocytes (%) (Auto) 21, Monocytes (%) (Auto) 9, Eosinophils (%) (Auto) 3, Basophils (%) (Auto) 1, Neutrophils # (Auto) 5.9, Lymphocytes # (Auto) 1.8, Monocytes # (Auto) 0.8, Eosinophils # (Auto) 0.2, Basophils # (Auto) 0.0, Sodium Level 144, Potassium Level 3.7, Chloride Level 111H, Carbon Dioxide Level 23, Anion Gap 10, Blood Urea Nitrogen 18, Creatinine 1.44H, Estimat Glomerular Filtration Rate 50, BUN/ Creatinine Ratio 13, Glucose Level 136H, Calcium Level 8.5, Vancomycin Level Trough 13.9 02/28/18 06:08: Glucometer 158H 02/28/18 11:01: Glucometer 206H 02/28/18 15:58: Glucometer 287H Microbiology 02/26/18 Blood Culture - Preliminary, Resulted No growth 02/26/18 Gram Stain - Final, Complete 02/26/18 Sputum Culture - Final, Complete Usual upper respiratory bj Assessment/Plan Assessment/Plan (1) Respiratory failure with hypoxia Status: Resolved Assessment & Plan: - Currently intubated, Dr Gilliam managing, weaning trial tomorrow 02/27- Extubated this AM, titrate NC as tolerated, transfer to floor 02/28- Continue to titrate to get patient off oxygen, no oxygen requirement at home, Encourage OOB and ambulation Qualifiers: Qualified Codes: J96.01 - Acute respiratory failure with hypoxia (2) Acute kidney failure Status: Acute Assessment & Plan: - IVF hydration, continue to monitor Cr daily 02/27- Continues to trend up, will continue IVFs, BMP in AM 02/28- Improving but still elevated this AM, will d/c IVFs, encourage PO hydration Qualifiers: Qualified Codes: N17.9 - Acute kidney failure, unspecified (3) Metabolic acidosis Status: Resolved Assessment & Plan: - Not DKA, will continue SSI insulin, likely combined metabolic and respiratory acidosis, acidosis corrected this AM, Continue with IVF hydration (4) Status epilepticus Status: Acute Assessment & Plan: - Patient had not been taking meds, keppra loading IV, Sz precautions 02/27- transition patient to PO keppra, continue to monitor ON, home in AM (5) SIRS (systemic inflammatory response syndrome) Status: Acute Assessment & Plan: - Start broad spectrum antibiotics (6) Methamphetamine abuse Status: Acute (7) Hypokalemia Status: Acute Assessment & Plan: 02/27- Replace PO, repeat BMP in AM (8) Non-compliance Status: Acute (9) DVT prophylaxis Status: Acute Assessment & Plan: [employer] Clinical Quality Measures DVT/VTE Risk/Contraindication: Risk Factor Score Per Nursin RFS Level Per Nursing on Admit: 3=High NERY KELLY MD Feb 28, 2018 19:43
[2018-02-28 20:43] VITALS: BP 144/86
[2018-03-01] VITALS: BP 153/84
[2018-03-01 04:00] VITALS: BP 140/75
[2018-03-01] MEDS: PIPERACILLIN/TAZO 4.5 GM/NS 100 ML IV SCH ×2 (04:49)
[2018-03-01] MEDS: inSUlin ASPART (NovoLOG) 1 UNIT/0.01 ML (CHARGE PER UNIT) SQ SCH ×2 (06:56→12:33)
[2018-03-01] MEDS ORDERED: AUGMENTIN 875 MG TAB (AMOXICILLIN/CLAVULANATE) PO SCH (07:00)
[2018-03-01 07:11] LABS: BASOPHILS % (AUTO) 1 % (0-10); EOSINOPHILS # (AUTO) 0.2 10^3/uL (0.0-0.3); EOSINOPHILS % (AUTO) 3 % (0-10); HEMATOCRIT 35 % (40-54); HEMOGLOBIN 12.2 G/DL (13.3-17.7); LYMPHOCYTES # (AUTO) 1.4 X 10^3 (1.0-4.0); LYMPHOCYTES % (AUTO) 21 % (12-44); MEAN CORPUSCULAR HEMOGLOBIN 30 PG (25-34); MEAN CORPUSCULAR HGB CONC 35 G/DL (32-36); MEAN CORPUSCULAR VOLUME 87 FL (80-99); MEAN PLATELET VOLUME 9.8 FL (7.4-10.4); MONOCYTES # (AUTO) 0.6 X 10^3 (0.0-1.0); MONOCYTES % (AUTO) 9 % (0-12); NEUTROPHILS # (AUTO) 4.3 X 10^3 (1.8-7.8); NEUTROPHILS % (AUTO) 66 % (42-75); PLATELET COUNT 214 10^3/uL (130-400); RED BLOOD COUNT 4.06 10^6/uL (4.35-5.85); RED CELL DISTRIBUTION WIDTH 12.7 % (10.0-14.5); WHITE BLOOD COUNT 6.6 10^3/uL (4.3-11.0)
--- NOTE | 2018-03-01 07:21 | Pulmonary Progress Note ---
Subjective Time Seen by a Provider: 07:21 Subjective/Events-last exam PT appears to be doing better. Sepsis Event Evaluation Height, Weight, BMI Height: 6'2.00" Weight: 259lbs. 0.0oz. 117.037714dc; 27.73 BMI Method:Estimated Focused Exam Lactate Level 02/26/18 09:05: Lactic Acid Level 1.07 02/26/18 16:55: Lactic Acid Level 1.91 Exam Exam Vital Signs Date Time Temp Pulse Resp B/P (MAP) Pulse Ox O2 Delivery O2 Flow Rate FiO2 03/01/18 07:04 96 Nasal Cannula 2.00 03/01/18 04:00 98.0 69 18 140/75 (96) 95 Nasal Cannula 2.00 03/01/18 01:00 80 03/01/18 00:00 98.0 77 16 153/84 (107) 99 Nasal Cannula 2.00 02/28/18 21:00 Nasal Cannula 2.00 02/28/18 20:43 97.5 73 18 144/86 (105) 97 Nasal Cannula 2.00 02/28/18 19:00 100 02/28/18 16:00 97.9 86 19 145/79 (101) 96 Room Air 02/28/18 13:00 101 02/28/18 12:00 99.2 90 16 160/88 (112) 96 Room Air 02/28/18 08:00 Nasal Cannula 2.00 02/28/18 08:00 98.5 87 16 156/79 (104) 96 Nasal Cannula 2.00 02/28/18 07:47 73 I & O 03/01/18 07:00 Intake Total 3830 ml Output Total 1150 ml Balance 2680 ml Height & Weight Height: 6'2.00" Weight: 259lbs. 0.0oz. 117.650386il; 27.73 BMI Method:Estimated General Appearance: No Apparent Distress, WD/WN, Other (pt is intubated) Neck: Normal Inspection, Supple Respiratory: Chest Non Tender, No Accessory Muscle Use, No Respiratory Distress , Other (on 2L nasal canula) Cardiovascular: Regular Rate, Rhythm, No Edema, No JVD, No Murmur Capillary Refill: Less Than 3 Seconds Gastrointestinal: normal bowel sounds, soft, no organomegaly Extremity: Normal Capillary Refill, No Pedal Edema Skin: Normal Color, Warm/Dry Results Lab Laboratory Tests 02/28/18 05:00 03/01/18 07:00 Assessment/Plan Assessment/Plan Acute respiratory failure -Resolved -change Zosyn to Augmentin Acute seizures -Continue Keppra -seizure precautions -Ativan PRN Acute renal failure -improving Drug use with methamphetamines and marijuana -Education PT is ok from pulmonary standpoint for discharge with Augmentin x 3-5more days.Will have RT do home oxygen qualification testing. I do not believe pt will need it. I am going to sign off after oxygen needs are accessed. Please call with any questions. JOYCE JAMES DO Mar 01, 2018 07:21
[2018-03-01 07:30] LABS: BUN/CREATININE RATIO 11; CALCIUM 8.2 MG/DL (8.5-10.1); CARBON DIOXIDE 26 MMOL/L (21-32); CHLORIDE 106 MMOL/L (98-107); CREATININE SERUM 1.22 MG/DL (0.60-1.30); GFR ESTIMATED > 60; GLUCOSE 201 MG/DL (70-105); POTASSIUM 3.5 MMOL/L (3.6-5.0); SODIUM 141 MMOL/L (135-145)
[2018-03-01 08:26] VITALS: BP 160/79
[2018-03-01] MEDS ORDERED: amLODIPine 10 MG (NORVASC) TAB PO SCH (09:00)
[2018-03-01] MEDS: LEVETIRACETAM 1,000 MG (KEPPRA) TABLET PO SCH (09:54)
--- NOTE | 2018-03-01 10:52 | Physical Therapy Progress Note ---
Therapy Progress Note Patient is up independent in hallway with no deviation. PT to dismiss patient from services at this time. LORIE QUEVEDO PT Mar 01, 2018 10:52
--- NOTE | 2018-03-01 11:46 | Occupational Ther Daily Note ---
OT Current Status-Daily Note Subjective Pt alert, lying in bed. Pt agrees to therapy. No c/o pain. Mental Status/Objective Patient Orientation: Person, Place, Time, Situation Therapy Code Descriptions/Definitions Functional [place] Measure: 0=Not Assessed/NA 4=Minimal Assistance 1=Total Assistance 5=Supervision or Setup 2=Maximal Assistance 6=Modified [place] 3=Moderate Assistance 7=Complete [place] ADL-Treatment Pt ambulated into bathroom and transferred into shower using grabbar. Pt completed shower by self, safety concerns. Pt able to don/doff clothing by self. VELIZ recommended to pt that he sit down to don/doff pants. Pt stood to don underwear, no LOB noted. After therapy, pt sitting on EOB with family present in room. Call light/phone in reach. All needs met in room. Grooming (FIM): 6 Bathing (FIM): 6 Bathing Location: L Arm, R Arm, L Upper Leg, R Upper Leg, L Lower Leg ( including foot), R Lower Leg (including foot), Chest, Abdomen, Buttocks, Perineal Area Upper Body (FIM): 7 Lower Body Dressing (FIM): 6 (Safety concerns) Shower Transfer(FIM): 6 OT Short Term Goals Short Term Goals Transfers (B,C,W/C) (FIM): 5 1=Demonstrate adherence to instructed precautions during ADL tasks. 2=Patient will verbalize/demonstrate understanding of assistive devices/ modifications for ADL. 3=Patient will improve strength/tolerance for activity to enable patient to perform ADL's. OT Shelter Goals Shelter Goals Time Frame: Mar 09, 2018 Eating (FIM): 6 Grooming(FIM): 5 Upper Body Dressing(FIM): 5 Lower Body Dressing(FIM): 5 Toileting(FIM): 5 Toilet/Commode Transfer(FIM): 5 Additional Goals: 1-Demonstrate ADL Tasks, 2-Verbalize Understanding, 3- ImproveStrength/[place] 1=Demonstrate adherence to instructed precautions during ADL tasks. 2=Patient will verbalize/demonstrate understanding of assistive devices/ modifications for ADL. 3=Patient will improve strength/tolerance for activity to enable patient to perform ADL's. OT Education/Plan Problem List/Assessment Pt to benefit from skilled OT intervention for ADL training, transfers, strengthening, and safety education to increase functional independence and allow safe discharge. Discharge Recommendations Plan/Recommendations: Continue POC Treatment Plan/Plan of Care Patient would benefit from OT for education, treatment and training to promote independence in ADL's, mobility, safety and/or upper extremity function for ADL' s. Plan of Care: ADL Retraining, Functional Mobility, UE Funct Exercise/Act Treatment Duration: Mar 09, 2018 Frequency: 5 times per week Estimated Hrs Per Day: .25 hour per day Rehab Potential: Fair Time/GCodes Start Time: 11:15 Stop Time: 11:40 Total Time Billed (hr/min): 25 Billed Treatment Time 1 visit-ADL 2 (25 min) TALIA JONES Mar 01, 2018 11:46
--- NOTE | 2018-03-01 11:55 | Discharge Summary ---
Diagnosis/Chief Complaint Date of Admission Feb 26, 2018 at 01:55 Date of Discharge 03/01/18 Admission Diagnosis Admission Diagnosis Respiratory Failure requiring intubation Status Epilepticus SIRS Meth use Discharge Diagnosis See Below Problems/Diagnosis: (1) Respiratory failure with hypoxia Assessment & Plan: - Currently intubated, Dr Gilliam managing, weaning trial tomorrow 02/27- Extubated this AM, titrate NC as tolerated, transfer to floor 02/28- Continue to titrate to get patient off oxygen, no oxygen requirement at home, Encourage OOB and ambulation 03/01- Patient off oxygen and doing well Qualifiers: Qualified Codes: J96.01 - Acute respiratory failure with hypoxia Status: Resolved Resolution Date/Time: 02/27/18 @ 20:25 (2) Acute kidney failure Assessment & Plan: - IVF hydration, continue to monitor Cr daily 02/27- Continues to trend up, will continue IVFs, BMP in AM 02/28- Improving but still elevated this AM, will d/c IVFs, encourage PO hydration Qualifiers: Qualified Codes: N17.9 - Acute kidney failure, unspecified Status: Resolved Resolution Date/Time: 03/01/18 @ 21:29 (3) Metabolic acidosis Assessment & Plan: - Not DKA, will continue SSI insulin, likely combined metabolic and respiratory acidosis, acidosis corrected this AM, Continue with IVF hydration Status: Resolved Resolution Date/Time: 02/27/18 @ 20:26 (4) Status epilepticus Assessment & Plan: - Patient had not been taking meds, keppra loading IV, Sz precautions 02/27- transition patient to PO keppra, continue to monitor ON, home in AM Status: Acute (5) SIRS (systemic inflammatory response syndrome) Assessment & Plan: - Start broad spectrum antibiotics Status: Resolved Resolution Date/Time: 03/01/18 @ 21:29 (6) Methamphetamine abuse Status: Acute (7) Hypokalemia Assessment & Plan: 02/27- Replace PO, repeat BMP in AM Status: Acute (8) Non-compliance Status: Acute (9) DVT prophylaxis Assessment & Plan: Lovenox Status: Acute Chief Complaint/HPI Chief Complaint/HPI 62 yo Non compliant patient that presented to ER via EMS due to multiple seizures. Patient was intubated in ER due to post ictal status and respiratory failure. Found that have profound acidosis and admitted for DKA and Status. Discharge Summary-Simple/Stand Consultations Dr Gilliam, Pulmonology and Critical Care Discharge Physical Examination Allergies: Coded Allergies: NKANo Known Allergies (Verified Allergy, Unknown, 12/18/17) Vitals & I&Os Vital Sign - Last 12Hours Date Time Temp Pulse Resp B/P (MAP) Pulse Ox O2 Delivery O2 Flow Rate FiO2 03/01/18 09:00 Nasal Cannula 2.00 03/01/18 08:26 98.6 66 20 160/79 (106) 99 02/27/18 02:10 21 Intake and Output 03/01/18 00:00 Intake Total 2400 ml Output Total 1150 ml Balance 1250 ml General Appearance: Alert, Oriented X3, Cooperative, No Acute Distress HEENT: Mucous Memb Moist/[place] Respiratory: Clear to Auscultation, Normal Air Movement Cardiovascular: Regular Rate, No Murmurs Abdominal: Normal Bowel Sounds, Soft, No Tenderness, No Masses Extremities: No Edema, No Tenderness/Swelling Skin: No Rashes, No Breakdown Neuro: Normal Gait, Strength at 5/5 X4 Ext, Sensation Intact, Cranial Nerves 3- 12 NL Psych/Mental Status: Mental Status NL, Mood NL Hospital Course See final discharge diagnosis. Discussion & Recommendations 62 yo M that was brought to ER for Status Epilepticus and was intubated upon arrival. After admission patient did not have any further seizures. Girlfriend stated that he had been off medications because they were unable to afford them. He had a lactic acidosis that resolved with IVFs. Patient was successfully extubated on Day 2 of admission and titrated off oxygen by time of discharge. He was treated for possible PNA during admission. Blood sugars stabilized with insulin. Patient was sent with scripts for insulin and keppra at the time of discharge. Patient will have close follow up with PCP Mandeep at [facility] Discharge Condition at discharge stable Instructions to patient/family Please see electronic discharge instructions given to patient. Discharge Medications Reviewed and agree with Discharge Medication list on patient's Discharge Instruction sheet Clinical Quality Measures DVT/VTE Risk/Contraindication: Risk Factor Score Per Nursin RFS Level Per Nursing on Admit: 3=High Copy Copies To 1: Teo LUO APRN GAULT, HOLLY R MD Mar 01, 2018 11:55
[2018-03-01] MEDS ORDERED: LEVE10006 PO (11:57)
[2018-03-01] MEDS ORDERED: AMOX1TAB12 PO (11:57)
[2018-03-01 12:00] VITALS: BP 167/91
--- NOTE | 2018-03-01 13:12 | Progress Note-Cardiology ---
Cardiology SOAP Progress Note Objective: I&O/Vital Signs 03/01/18 03/01/18 03/01/18 03/01/18 04:00 07:04 07:12 08:26 Temp 98.0 98.6 Pulse 69 84 66 Resp 18 20 B/P (MAP) 140/75 (96) 160/79 (106) Pulse Ox 95 96 99 O2 Delivery Nasal Cannula Nasal Cannula Nasal Cannula O2 Flow Rate 2.00 2.00 2.00 03/01/18 03/01/18 09:00 12:00 Temp 98.1 Pulse 80 Resp 18 B/P (MAP) 167/91 (116) Pulse Ox 93 O2 Delivery Nasal Cannula Nasal Cannula O2 Flow Rate 2.00 2.00 03/01/18 00:00 Intake Total 2400 ml Output Total 1150 ml Balance 1250 ml Weight (Pounds): 259 Weight (Ounces): 0.0 Weight (Calculated Kilograms): 117.195197 Constitutional: AAO x 3, well-developed, well-nourished Respiratory: other (fair to good bilat air entry, prolonged exp) Cardiovascular: regular rate-rhythm, S1 and S2, systolic murmur (soft MOLLY at card base) Gastrointestional: No tender; soft; No guarding, No rebound; audible bowel sounds Extremities: No clubbing, No cyanosis, No significant edema Neurologic/Psychiatric: other (Appears to move all limbs equally) Skin: normal color, warm/dry; No rash on exposed areas, No ulcerations on exposed areas Results/Procedures: Labs Laboratory Tests 02/28/18 15:58: Glucometer 287H 02/28/18 20:08: Glucometer 269H 03/01/18 05:18: Glucometer 189H 03/01/18 07:00: White Blood Count 6.6, Red Blood Count 4.06L, Hemoglobin 12.2L, Hematocrit 35L, Mean Corpuscular Volume 87, Mean Corpuscular Hemoglobin 30, Mean Corpuscular Hemoglobin Concent 35, Red Cell Distribution Width 12.7, Platelet Count 214, Mean Platelet Volume 9.8, Neutrophils (%) (Auto) 66, Lymphocytes (%) (Auto) 21, Monocytes (%) (Auto) 9, Eosinophils (%) (Auto) 3, Basophils (%) (Auto) 1, Neutrophils # (Auto) 4.3, Lymphocytes # (Auto) 1.4, Monocytes # (Auto) 0.6, Eosinophils # (Auto) 0.2, Basophils # (Auto) 0.0, Sodium Level 141, Potassium Level 3.5L, Chloride Level 106, Carbon Dioxide Level 26, Anion Gap 9, Blood Urea Nitrogen 14, Creatinine 1.22, Estimat Glomerular Filtration Rate > 60, BUN/ Creatinine Ratio 11, Glucose Level 201H, Calcium Level 8.2L 03/01/18 11:00: Glucometer 292H Microbiology 02/26/18 Blood Culture - Preliminary, Resulted No growth 02/26/18 Gram Stain - Final, Complete 02/26/18 Sputum Culture - Final, Complete Usual upper respiratory bj Laboratory Tests 02/28/18 05:00 03/01/18 07:00 A/P: Assessment: Transient bradycardia (sinus guanaco alternating with junctional rhythm with heart rate approx 45 bpm) Hypertension Seizure with status epilepticus at presentation (according to this hospitalization records) DM II with DKA (according to this hospitalization records) Acute renal failure, improved H/o CVA in 2013 (speech impairment) followed and treated by his pcp H/o noncompliance with meds (according to this hospitalization records) Plan: * States wishes to be back on amlodipine and Benicar that he was on at home * Already on amlodipine. Will write for Benicar of equivalent * Monitor labs ELBA BALDERAS MD FACP [facility] Mar 01, 2018 13:12
[2018-03-01] MEDS ORDERED: OLMESARTAN 20 MG (BENICAR) TABLET PO NR (13:15)
[2018-03-01 14:10] VITALS: BP 167/91
[2018-03-02] MEDS ORDERED: TROUGH ORDER-PHARMACY XX NR (06:00)
[2018-03-02] MEDS ORDERED: OLMESARTAN 20 MG (BENICAR) TABLET PO SCH (09:00)
== END 2018-03-01 14:10 | disposition home or self-care (01) | DRG 208 ==
LOC: EDUNIT# 23:27 → ER 23:28 → ICU 02-26 01:55 → 4TH 02-27 15:55
PROVIDERS: ADMIT Family Medicine; ATTEND Family Medicine
PROC: 5A1935Z Respiratory Ventilation, Less than 24 Consecutive Hours (ICD-10-PCS; principal; 2018-02-26)
DX: J96.01 Acute respiratory failure with hypoxia (principal); E11.65 Type 2 diabetes mellitus with hyperglycemia; G40.901 Epilepsy, unspecified, not intractable, with status epilepticus; R65.11 Systemic inflammatory response syndrome (SIRS) of non-infectious origin with acute organ dysfunction; E87.2 Acidosis; N17.9 Acute kidney failure, unspecified; K85.90 Acute pancreatitis without necrosis or infection, unspecified; F17.210 Nicotine dependence, cigarettes, uncomplicated; I95.9 Hypotension, unspecified; I10 Essential (primary) hypertension; B19.20 Unspecified viral hepatitis C without hepatic coma; E78.00 Pure hypercholesterolemia, unspecified; D72.829 Elevated white blood cell count, unspecified; F41.9 Anxiety disorder, unspecified; F32.9 Major depressive disorder, single episode, unspecified; F15.10 Other stimulant abuse, uncomplicated; I87.2 Venous insufficiency (chronic) (peripheral); E87.6 Hypokalemia; E83.51 Hypocalcemia; R00.1 Bradycardia, unspecified; F12.90 Cannabis use, unspecified, uncomplicated; Z79.4 Long term (current) use of insulin; Z91.14 Patient's other noncompliance with medication regimen; Z86.73 Personal history of transient ischemic attack (TIA), and cerebral infarction without residual deficits; Z87.820 Personal history of traumatic brain injury
CPT/HCPCS: 31500; 36415; 36600; 51702; 70450; 71045; 76700; 80048; 80053; 80202; 80306; 80320; 80329; 81000; 82140; 82150; 82550; 82553; 82805; 82962; 83605; 83690; 83735; 83874; 83880; 84100; 84443; 84478; 84484; 85007; 85025; 85027; 85610; 85730; 87040; 87070; 87205; 90471; 90686; 93005; 93041; 94002; 94003; 94760; 94761; 94799; 96365; 96375; 99291

== ENCOUNTER 2022-06-08 08:47 | Inpatient (IN) | payer MEDICARE, MEDICAID ==
[~2022-06-08] VITALS: Ht 190.5 cm; Wt 108.9 kg
[~2022-06-08 08:47] MED LIST changes: +AMLO-251 PO; +AMOX1TAB12 PO; +ASPI-808 PO; +ESCI20TA39 PO; +INSU100I10 SC; +LEVE10006 PO; +METF-399 PO; +OLME-11 PO; +POTA10TA10 PO
[2022-06-08] MEDS ORDERED: inSUlin (REGULAR) HUMAN 1 UNIT/0.01 ML (CHARGE PER UNIT) IV STA (09:02)
[2022-06-08] MEDS ORDERED: LORazepam INJ 2 MG/ML (ATIVAN) VIAL IVP STA (09:02)
[2022-06-08] MEDS ORDERED: inSUlin (REGULAR) HUMAN 1 UNIT/0.01 ML (CHARGE PER UNIT) SC STA (09:02)
[2022-06-08] MEDS ORDERED: NS IV 1000 ML 1,000 ML IV SCH ×2 (09:15→12:30)
[2022-06-08] MEDS ORDERED: LIDOCAINE UROJET 2% GEL 10 ML PKG TOP ONE (09:15)
[2022-06-08] MEDS ORDERED: NALOXONE 0.4 MG/ML 1 ML (NARCAN) VIAL IV ONE ×2 (09:15→13:45)
[2022-06-08 09:18] LABS: BASOPHILS # (AUTO) 0.1 10^3/uL (0.0-0.1); BASOPHILS % (AUTO) 0 % (0-10); EOSINOPHILS % (AUTO) 0 % (0-10); HEMATOCRIT 47 % (40-54); HEMOGLOBIN 16.4 g/dL (13.3-17.7); LYMPHOCYTES # (AUTO) 0.5 10^3/uL (1.0-4.0); LYMPHOCYTES % (AUTO) 3 % (12-44); MEAN CORPUSCULAR HEMOGLOBIN 30 pg (25-34); MEAN CORPUSCULAR HGB CONC 35 g/dL (32-36); MEAN CORPUSCULAR VOLUME 88 fL (80-99); MONOCYTES # (AUTO) 0.5 10^3/uL (0.0-1.0); MONOCYTES % (AUTO) 2 % (0-12); NEUTROPHILS # (AUTO) 19.2 10^3/uL (1.8-7.8); NEUTROPHILS % (AUTO) 94 % (42-75); PLATELET COUNT 317 10^3/uL (130-400); WHITE BLOOD COUNT 20.3 10^3/uL (4.3-11.0)
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
[2022-06-08 09:30] LABS: ALBUMIN 3.7 GM/DL (3.2-4.5); CHLORIDE 101 MMOL/L (98-107); POTASSIUM 4.7 MMOL/L (3.6-5.0); SODIUM 137 MMOL/L (135-145)
[2022-06-08] MEDS ORDERED: ACETAMINOPHEN 650 MG SUPP (TYLENOL) PR ONE (09:30)
[2022-06-08 09:31] LABS: CALCIUM 9.3 MG/DL (8.5-10.1)
[2022-06-08 09:32] LABS: TOTAL PROTEIN 6.9 GM/DL (6.4-8.2)
[2022-06-08 09:33] LABS: CARBON DIOXIDE 18 MMOL/L (21-32); INR 1.1 (0.8-1.4); PROTHROMBIN TIME PATIENT 14.2 SEC (12.2-14.7)
[2022-06-08 09:34] LABS: BILIRUBIN,TOTAL 0.8 MG/DL (0.1-1.0)
[2022-06-08 09:36] LABS: BILIRUBIN,URINE NEGATIVE (NEGATIVE); CLARITY,URINE CLEAR; COLOR,URINE YELLOW; GLUCOSE, URINE (UA) 3+ (NEGATIVE); KETONES,URINE 2+ (NEGATIVE); LEUKOCYTE ESTERASE ,URINE NEGATIVE (NEGATIVE); NITRITE,URINE NEGATIVE (NEGATIVE); PH,URINE 5.5 (5-9); PROTEIN,URINE 3+ (NEGATIVE)
[2022-06-08 09:36] LABS: ALKALINE PHOSPHATASE 103 U/L (40-136); CREATININE SERUM 2.16 MG/DL (0.60-1.30); GFR ESTIMATED 33
[2022-06-08 09:37] LABS: BUN/CREATININE RATIO 15
[2022-06-08 09:39] LABS: ALANINE AMINOTRANSFERASE 26 U/L (0-55)
[2022-06-08] MEDS ORDERED: levETIRAcetam 1000 mg/NS 100ml 100 ML IV STA (09:41)
[2022-06-08] MEDS ORDERED: levETIRAcetam 1000 mg/NS 100ml 100 ML IV ONE (09:42)
[2022-06-08] MEDS ORDERED: LORazepam INJ 2 MG/ML (ATIVAN) VIAL IVP ONE (09:45)
[2022-06-08 09:50] LABS: GLUCOSE 640 MG/DL (70-105)
[2022-06-08] MEDS ORDERED: NS IV 1000 ML 1,000 ML IV STA ×2 (09:53→10:52)
[2022-06-08 10:09] LABS: BACTERIA,URINE NEGATIVE /HPF; GRANULAR CASTS,URINE RARE /LPF; HYALINE CASTS, URINE 0-2 /LPF; WBC,URINE RARE /HPF
[2022-06-08 10:10] LABS: AMPHETAMINE SCREEN, URINE NEGATIVE (NEGATIVE); BARBITURATE SCREEN URINE NEGATIVE (NEGATIVE); BENZODIAZEPINES SCREEN URINE NEGATIVE (NEGATIVE); CANNABINOID SCREEN, URINE NEGATIVE (NEGATIVE); COCAINE SCREEN URINE NEGATIVE (NEGATIVE); METHADONE STAT NEGATIVE (NEGATIVE); OPIATE SCREEN URINE NEGATIVE (NEGATIVE); OXYCODONE STAT NEGATIVE (NEGATIVE); PROPOXYPHENE STAT NEGATIVE (NEGATIVE); TRICYCLIC ANTIDEPRESSANTS SCRE NEGATIVE (NEGATIVE)
[2022-06-08] MEDS ORDERED: dilTIAZem DRIP PRE-MIX 125 ML IV SCH (10:15)
[2022-06-08] MEDS ORDERED: PROPOFOL DRIP (ICU) 100 ML IV ONE (10:29)
[2022-06-08] MEDS ORDERED: VANCOMYCIN INJECTION 1,000 MG in NS (IVPB) 250 ML IV ONE (10:30)
[2022-06-08] MEDS ORDERED: PIPERACILLIN SODIUM/TAZOBACTAM 4.5 GM in NS (IVPB) 100 ML IV ONE (10:30)
[2022-06-08 10:32] LABS: BAND NEUTROPHILS 4 %; LYMPHOCYTES % (MANUAL) 1 %; MONOCYTES % (MANUAL) 2 %; NEUTROPHILS % (MANUAL) 93 %
--- NOTE | 2022-06-08 10:40 | Diagnostic Imaging Report ---
EXAMINATION: Chest 1 view HISTORY: AMS/sepsis COMPARISON: 02/27/2018 FINDINGS: Heart size and pulmonary vasculature are normal. The lungs are clear without consolidation, pleural effusion, or pneumothorax. The osseous structures are intact. An endotracheal tube is present above the rylie. Enteric catheter is present coursing below the diaphragm the tip projecting over the left upper quadrant. There is mild interstitial opacities within the lung bases. IMPRESSION: 1. Mild interstitial opacities within the lower lungs which could represent atelectasis, edema, or atypical pneumonia. Dictated by: Dictated on workstation # [id number]
[2022-06-08] MEDS: PROPOFOL DRIP (ICU) 100 ML IV SCH ×5 (10:44→22:25)
[2022-06-08 10:46] VITALS: BP 75/37
[2022-06-08 10:49] LABS: ABG BASE EXCESS -5.8 MMOL/L (-2.5-2.5); ABG OXYGEN SATURATION 100 % (94-100); ABG PCO2 50 MMHG (35-45); ABG PO2 404 MMHG (79-93); ABG TCO2 21.4 MMOL/L (21.0-31.0)
[2022-06-08 10:54] LABS: INSPIRED O2 100%; PATIENT TEMP 39.2; VENTILATOR NO
[2022-06-08 10:55] LABS: ABG PH 7.24 (7.37-7.43)
[2022-06-08] MEDS ORDERED: MIDAZOLAM 5 MG/5 ML (VERSED) VIAL ONE ×2 (10:55→11:39)
--- NOTE | 2022-06-08 10:56 | History & Physical ---
History of Present Illness HPI/Chief Complaint CC: Respiratory failure HPI: This is a 66yoWM clinic patient CHC who presented to the ER with AMS and fever with new onset AF RVR with seizures and MEGAN with DKA. No history obtainable. No source of AMS or fever noted on w/u although abx initiated empirically. LP performed revealing minimal abnormalities but will maintain meningitis coverage until CX returns. Poor prognosis given the multiple critical illness components. Source: RN/MD Exam Limitations: clinical condition Date Seen 06/08/22 Time Seen by a Provider: 11:15 Attending Physician [place], [facility] PCP Admitting Physician: Attending Physician: Referring Physician Date of Admission Home Medications & Allergies Home Medications Reviewed patient Home Medication Reconciliation performed by pharmacy medication reconciliations bench repair technician and/or nursing. Patients Allergies have been reviewed. Allergies Allergies Coded Allergies NKANo Known Allergies (Verified Allergy, Unknown, 12/18/17) Past Elxqrjr-Dvuaea-Vsazyp Hx Past Med/Social Hx: Reviewed Nursing Past Med/Soc Hx, Reviewed and Corrections made Patient Social History Drug of Choice: METH Smoking Status: Unknown if Ever Smoked Type Used: Cigarettes 2nd Hand Smoke Exposure: Yes Recent Hopitalizations: No Immunizations Up To Date Tetanus Booster (TDap): More than 5yrs Date of Pneumonia Vaccine: Sep 16, 2012 Date of Influenza Vaccine: Dec 02, 2013 Seasonal Allergies Seasonal Allergies: No Past Medical History Cardiac: High Cholesterol, Hypertension Neurological: Concussion, Seizure Disorder, Stroke, Traumatic Brain Injury Gastrointestinal: Liver Disease/Jaundice, Hepatitis Endocrine: Diabetes, Insulin dep Psychosocial: Anxiety, Depression History of Blood Disorders: No Adverse Reaction to Blood Teran: No Family History Family history: Cardiovascular disease 03 FATHER (MACKENZIE PARKINSONS SYNDROME) Family history: Hypertension 03 FATHER History of - disorder 03 MOTHER (DEPRESSION) 09 SISTER (MENTAL HEALTH ISSUES) Heart Disease, Psychiatric Problems Review of Systems ROS-Unable to Obtain: intubated Constitutional: see HPI Physical Exam Physical Exam Vital Signs Vital Signs - First Documented 06/08/22 06/08/22 06/08/22 08:47 09:00 10:46 Temp 39.7 Pulse 91 Resp 24 B/P (MAP) 208/114 (145) Pulse Ox 97 O2 Delivery Nasal Cannula O2 Flow Rate 3.00 FiO2 100 Capillary Refill : Less Than 3 Seconds Height, Weight, BMI Height: 6'2.00" Weight: 259lbs. 0.0oz. [id number]; 27.00 BMI Method:Estimated General Appearance: Chronically ill, Severe Distress, Other (altered, voc alizing - not making sense; moaning) Eyes: Bilateral Eye Abnormal Pupil (1-2mm) HEENT: Other (POOR DENTITION, MULTIPLE CARIOUS TEETH; DRY ORAL MUCOSA; ABRAS ION/CONTUSION RIGHT HINDU/FOREHEAD) Neck: Normal Inspection Respiratory: Normal Breath Sounds, No Accessory Muscle Use, No Respiratory Distress Cardiovascular: Irregularly Irregular, Tachycardia (160) Gastrointestinal: Soft; No Distended Back: Normal Inspection, Other (SMALL BRUISE RIGHT SHOULDER BLADE ?OLD) Extremity: Normal Range of Motion; No Pedal Edema, No Swelling Neurologic/Psychiatric: Disoriented, Other (MOANING; NOT FOLLOWING COMMANDS; EYES CLOSED. RESPONDS TO NOXIOUS STIMULI (LOCALIZES)) Skin: Warm/Dry; No Rash; Other (DIRTY, DISSHEVELLED, UNKEMPT; SMELLS TERRIBLE) Results Results/Procedures Labs Laboratory Tests 06/08/22 08:50 06/08/22 16:00 06/08/22 19:15 06/08/22 22:30 06/09/22 03:35 Patient resulted labs reviewed. Assessment/Plan Admission Diagnosis Assessment: AMS Acute respiratory failure AF RVR Seizure upon admit DKA MEGAN Plan: Vent Insulin drip IV abx EICU appreciated along with Cardiology Admission Status: Inpatient Order (span 2 midnights) Reason for Inpatient Admission: resp failure LUANN MCFARLANE DO Jun 08, 2022 10:56
[2022-06-08] MEDS ORDERED: NOREPINEPHRINE 8 MG/250 ML 250 ML IV SCH (11:00)
[2022-06-08] MEDS ORDERED: MIDAZOLAM 5 MG/5 ML (VERSED) VIAL IVP ONE (11:00)
--- NOTE | 2022-06-08 12:00 | Diagnostic Imaging Report ---
INDICATION: Line placement. COMPARISON is made with prior exam of 06/08/2022. FINDINGS: There is a right internal jugular central venous catheter which has its tip in the superior vena cava. ET and NG tubes are in satisfactory positions. Heart size is stable. Lungs are clear. No pleural effusion or pneumothorax. IMPRESSION: Interval placement of a right internal jugular central venous catheter which has its tip in the superior vena cava. Dictated by: Dictated on workstation # [id number]
--- NOTE | 2022-06-08 12:18 | Consultation-Cardiology ---
HPI-Cardiology Cardiology Consultation: Date of Consultation 06/08/22 Time Seen by a Provider: 11:50 Date of Admission Attending Physician [place] Admitting Physician Admitting Physician: Attending Physician: Consulting Physician ELBA BALDERAS MD, MA, FACP, FACC, [facility] [place] Physician requesting consult: Dr Montero HPI: Chief Complaint: Reason for Card consult: A Fib with RVR 66 yo man who was brought to the ER after his friend found him at home not acting right. When he was brought to the ER, he was in resp distress and was quickly intubated and put on mechanical ventilation. At the time of my exam, he is on mech vent and sedated and not able to provide any history. History is ga thered from the Dr Ferro's note and from having spoken with Dr Peterson. Pt had not been reporting any chest pain prior to intubation. He was found to be septic and with markedly elevated blood sugar and in DKA Review of Systems-Cardiology Review of Systems Constitutional: other (pt on mech vent and sedated; not able to provide history or review of systems) IKA-Zmjeey-Ujiqux Hx Patient Social History 2nd Hand Smoke Exposure: Yes Alcohol Use?: Unable to obtain Immunizations Up To Date Tetanus Booster (TDap): More than 5yrs Date of Pneumonia Vaccine: Sep 16, 2012 Date of Influenza Vaccine: Dec 02, 2013 Past Medical History PMH As described under Assessment. Family Medical History Family History: Family history: Cardiovascular disease 03 FATHER (MACKENZIE PARKINSONS SYNDROME) Family history: Hypertension 03 FATHER History of - disorder 03 MOTHER (DEPRESSION) 09 SISTER (MENTAL HEALTH ISSUES) Allergies and Home Medications Allergies Coded Allergies: NKANo Known Allergies (Verified Allergy, Unknown, 12/18/17) Patient Home Medication List Home Medication List Reviewed: Yes Amlodipine Besylate (Amlodipine Besylate) 10 Mg Tablet, 10 MG PO DAILY, (Reported) Entered as Reported by: HKOA VELEZ on 02/26/18 1034 Amoxicillin/Potassium Clav (Amox Tr-K Clv 875-125 mg Tab) 1 Each Tablet, 875 MG PO BID WITH MEALS Prescribed by: NERY KELLY on 03/01/18 1157 Aspirin (Aspirin) 325 Mg Tablet, 325 MG PO DAILY, (Reported) Entered as Reported by: KHOA VELEZ on 02/26/18 1034 Atorvastatin Calcium (Atorvastatin Calcium) 10 Mg Tablet, 10 MG PO DAILY, (Reported) Entered as Reported by: KHOA VELEZ on 02/26/18 1034 Escitalopram Oxalate (Escitalopram Oxalate) 20 Mg Tablet, 20 MG PO DAILY, (Reported) Entered as Reported by: KHOA VELEZ on 02/26/18 1034 Insulin Glargine,Hum.rec.anlog (Lantus Solostar) 100 Unit/1 Ml Insuln.pen, 42 UNITS SC BID, (Reported) Entered as Reported by: KHOA VELEZ on 02/26/18 1034 Levetiracetam (Levetiracetam) 1,000 Mg Tablet, 1,000 MG PO BID Prescribed by: NERY KELLY on 03/01/18 1157 Metformin HCl (Metformin HCl) 1,000 Mg Tablet, 1,000 MG PO BID, (Reported) Entered as Reported by: KHOA VELEZ on 02/26/18 1034 Olmesartan/Hydrochlorothiazide (Olmesartan-Hctz 40-25 mg Tab) 1 Each Tablet, 1 TAB PO DAILY, (Reported) Entered as Reported by: KHOA VELEZ on 02/26/18 1034 Potassium Chloride (Potassium Chloride) 10 Meq Tablet.er, 10 MEQ PO DAILY, (Reported) Entered as Reported by: KHOA VELEZ on 02/26/18 1034 Physical Exam-Cardiology Physical Exam Vital Signs/I&O 06/08/22 06/08/22 06/08/22 06/08/22 08:47 09:00 09:23 10:44 Temp 39.7 Pulse 91 167 154 B/P (MAP) 208/114 (145) 148/104 195/137 Pulse Ox 97 97 O2 Delivery Nasal Cannula Nasal Cannula O2 Flow Rate 3.00 06/08/22 06/08/22 06/08/22 10:46 10:50 12:07 Pulse 123 154 108 Resp 24 B/P (MAP) 105/60 97/64 Pulse Ox 97 FiO2 100 Capillary Refill : Less Than 3 Seconds Constitutional: other (on [facility] vent, sedated) HEENT: PERRL, EOMI; No xanthelasmas are seen Neck: carotid pulses are 2 + bilaterally, with good upstrokes Respiratory: No accessory muscle use; chest expansion is symmetric, chest is bilaterally symmetric, other (fair to good, bilateral air entry) Cardiovascular: regular rate-rhythm, S1 and S2, systolic murmur (soft MOLLY at card base) Gastrointestinal: soft; No guarding, No rebound; audible bowel sounds Extremities: No clubbing, No cyanosis, No significant edema Neurologic/Psychiatric: other (on mech vent, cannot cooperate with a neuro exam) Skin: normal color, warm/dry Data Review Labs Laboratory Tests 06/08/22 08:50: White Blood Count 20.3H, Red Blood Count 5.39, Hemoglobin 16.4, Hematocrit 47, Mean Corpuscular Volume 88, Mean Corpuscular Hemoglobin 30, Mean Corpuscular Hemoglobin Concent 35, Red Cell Distribution Width 12.9, Platelet Count 317, Mean Platelet Volume 11.0, Immature Granulocyte % (Auto) 1, Neutrophils (%) (Auto) 94H, Lymphocytes (%) (Auto) 3L, Monocytes (%) (Auto) 2, Eosinophils (%) (Auto) 0, Basophils (%) (Auto) 0, Neutrophils # (Auto) 19.2H, Lymphocytes # (Auto) 0.5L, Monocytes # (Auto) 0.5, Eosinophils # (Auto) 0.0, Basophils # (Auto) 0.1, Immature Granulocyte # (Auto) 0.1, Neutrophils % (Manual) 93, Lymphocytes % (Manual) 1, Monocytes % (Manual) 2, Band Neutrophils 4, Prothrombin Time 14.2, INR Comment 1.1, Activated Partial Thromboplast Time 27, Sodium Level 137, Potassium Level 4.7, Chloride Level 101, Carbon Dioxide Level 18L, Anion Gap 18H, Blood Urea Nitrogen 33H, Creatinine 2.16H, Estimat Glomerular Filtration Rate 33, BUN/Creatinine Ratio 15, Glucose Level 640*H, Calcium Level 9.3, Corrected Calcium 9.5, Total Bilirubin 0.8, Aspartate Amino Transf (AST/SGOT) 20, Alanine Aminotransferase (ALT/SGPT) 26, Alkaline Phosphatase 103, Troponin I 0.206H, Total Protein 6.9, Albumin 3.7, Triglycerid es Level 110, Beta-Hydroxybutyrate (Chem panel) 4.38H, Serum Alcohol < 10 06/08/22 09:11: Urine Color YELLOW, Urine Clarity CLEAR, Urine pH 5.5, Urine Specific [place] 1.020, Urine Protein 3+H, Urine Glucose (UA) 3+H, Urine Ketones 2+H, Urine Nitrite NEGATIVE, Urine Bilirubin NEGATIVE, Urine Urobilinogen 0.2, Urine Leukocyte Esterase NEGATIVE, Urine RBC (Auto) 3+H, Urine RBC 2-5H, Urine WBC RARE, Urine Crystals NONE, Urine Bacteria NEGATIVE, Urine Casts PRESENT, Urine Hyaline Casts 0-2H, Urine Granular Casts RARE, Urine Mucus NEGATIVE, Urine Culture Indicated NO, Urine Opiates Screen NEGATIVE, Urine Oxycodone Screen NEGATIVE, Urine Methadone Screen NEGATIVE, Urine Propoxyphene Screen NEGATIVE, Urine Barbiturates Screen NEGATIVE, Ur Tricyclic Antidepressants Screen NEGATIVE, Urine Phencyclidine Screen NEGATIVE, Urine Amphetamines Screen NEGATIVE, Urine Methamphetamines Screen NEGATIVE, Urine Benzodiazepines Screen NEGATIVE, Urine Cocaine Screen NEGATIVE, Urine Cannabinoids Screen NEGATIVE 06/08/22 09:14: Lactic Acid Level 4.13*H 06/08/22 10:04: Influenza Type A Antigen NEGATIVE, Influenza Type B Antigen NEGATIVE, SARS-CoV-2 RNA (RT-PCR) Not Detected 06/08/22 10:40: Blood Gas Puncture Site R radial, Blood Gas Patient Temperature 39.2, Arterial Blood pH 7.24*L, Arterial Blood Partial Pressure CO2 50H, Arterial Blood Partial Pressure O2 404H, Arterial Blood HCO3 20L, Arterial Blood Total CO2 21.4, Arterial Blood Oxygen Saturation 100, Arterial Blood Base Excess -5.8L, [place]let Test , Blood Gas Ventilator Setting NO, Blood Gas Inspired Oxygen 100% 06/08/22 11:08: Glucometer 407*H Laboratory Tests 06/08/22 08:50 A/P-Cardiology Assessment/Admission Diagnosis Critical illness, multifactorial (see below) - being managed by his hospitalist attending Dr Montero Sepsis with septic shock Uncontrolled DM II and DKA Acute renal failure (MEGAN) PAF vs MAT Minimal troponin elevation due to type 2 NV due to PAF/MAT with RVR and sepsis H/o seizure disorder H/o methamphetamine use H/o CVA in 2013 consisting of speech impairment (according to prior hospitalization records) H/o noncompliance with meds (according to prior hospitalization records) Discussion and Recomendations RECOMMENDATIONS * Treatment dose enoxaparin, if no contraindication * Aspirin by NGT if no contraindication * Beta-moses if tolerated by bp * Echo * Dr Montero to manage sepsis, septic shock, ac resp failure, ac renal failure and abnormal labs ELBA BALDERAS MD [facility] CCDS Jun 08, 2022 12:18
[2022-06-08] MEDS ORDERED: BISACODYL 10 MG SUPP (DULCOLAX) PR PRN (12:30)
[2022-06-08] MEDS ORDERED: diphenhydrAMINE 50 MG/ML INJ (BENADRYL) IVP PRN (12:30)
[2022-06-08] MEDS ORDERED: diphenhydrAMINE 25 MG TAB (BENADRYL) PO PRN (12:30)
[2022-06-08] MEDS ORDERED: ONDANSETRON 4 MG (ZOFRAN) ORAL DISSOLVE TAB PO PRN (12:30)
[2022-06-08] MEDS ORDERED: NS IV 500 ML 500 ML IV PRN (12:30)
[2022-06-08] MEDS ORDERED: POTASSIUM CL 10MEQ/50ML IVPB 50 ML IV SCH (12:30)
[2022-06-08] MEDS ORDERED: MELATONIN 3 MG TABLET PO PRN (12:30)
[2022-06-08] MEDS ORDERED: ANTACID SUSP 30 ML UDC (MYLANTA) PO PRN (12:30)
[2022-06-08] MEDS ORDERED: VANCOMYCIN INJECTION 0.1 MG in NS (IVPB) 250 ML IV SCH (12:30)
[2022-06-08] MEDS ORDERED: polyethylene glycoL POWDER 17 GM (MIRALAX) PACK PO PRN (12:30)
[2022-06-08] MEDS ORDERED: ONDANSETRON 4 MG/2 ML (SDV) Z0FRAN IV PRN (12:30)
[2022-06-08] MEDS ORDERED: LACTULOSE SYRUP 10GM/15ML (ENULOSE) 30ML UDC PO PRN (12:30)
[2022-06-08] MEDS ORDERED: MILK OF MAGNESIA 400 MG/5 ML 30 ML UDC PO PRN (12:30)
[2022-06-08] MEDS ORDERED: CALCIUM CARBONATE 500 MG (TUMS) TAB.CHEW PO PRN (12:30)
[2022-06-08] MEDS ORDERED: ACETAMINOPHEN 325 MG TABLET PO PRN (12:30)
--- NOTE | 2022-06-08 12:58 | Diagnostic Imaging Report ---
PROCEDURE: CT head without contrast. TECHNIQUE: Multiple contiguous axial images were obtained through the brain without the use of intravenous contrast. Auto Exposure Controls were utilized during the CT exam to meet ALARA standards for radiation dose reduction. INDICATION: Altered mental status COMPARISON: CT of the head on 02/26/2018, brain MRI 10/01/2013. FINDINGS: Redemonstration of encephalomalacia within the right frontal lobe. No acute intracranial hemorrhage. The hurtado-white matter differentiation is preserved. The ventricles and cortical sulci are normal. No midline shift or mass effect. No intracranial mass or fluid collection. The basilar cisterns are patent. Mucosal thickening and frothy secretions in the left maxillary sinus. No acute osseous findings. Partially imaged dental disease of the visualized maxillary teeth. IMPRESSION: No acute intracranial hemorrhage. No large vascular territory bunch-white loss. No intracranial mass, midline shift, or hydrocephalus. Redemonstration of encephalomalacia within the right frontal lobe. Dictated by: Dictated on workstation # [id number]
[2022-06-08 13:03] VITALS: BP_SYST 128; BP_SYST 93; BP_DIAS 56; BP_DIAS 72
[2022-06-08] MEDS: 1/2 NS IV SOLUTION 1,000 ML IV SCH ×3 (13:20→20:30)
[2022-06-08] MEDS: POTASSIUM CL 10MEQ/50ML IVPB 50 ML IV SCH ×5 (13:23→22:23)
[2022-06-08] MEDS: ASPIRIN 81 MG CHEW (CHILDREN'S ASA) PO NR ×2 (13:25→19:22)
[2022-06-08] MEDS ORDERED: VANCOMYCIN 1 GM/NS 250 ML IVPB IV NR ×2 (13:30)
[2022-06-08] MEDS ORDERED: ENOXAPARIN 100 MG/1 ML (LOVENOX) SYR SC SCH (13:30)
[2022-06-08] MEDS: dilTIAZem DRIP PRE-MIX 125 ML IV SCH (13:44)
[2022-06-08] MEDS ORDERED: RT-ALBUTEROL HFA 8.5 GM INHALER IH PRN (14:00)
[2022-06-08] MEDS: NOREPINEPHRINE 8 MG/250 ML 250 ML IV SCH (14:30)
[2022-06-08 14:40] VITALS: BP 86/55
[2022-06-08] MEDS: RT-ALBUTEROL HFA 8.5 GM INHALER IH SCH ×2 (14:40→21:30)
--- NOTE | 2022-06-08 14:44 | Occ Therapy Progress Note ---
Therapy Progress Note OT order received 06/08/22. Patient is intubated at this time, OT will monitor for appropriateness for evaluation MAURICIO CLEMENS OT Jun 08, 2022 14:44
[2022-06-08 14:45] LABS: ABG BASE EXCESS 3.7 MMOL/L (-2.5-2.5); ABG OXYGEN SATURATION 79 % (94-100); ABG PCO2 37 MMHG (35-45); ABG PH 7.48 (7.37-7.43); ABG PO2 90 MMHG (79-93); ABG TCO2 28.3 MMOL/L (21.0-31.0)
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
--- NOTE | 2022-06-08 14:46 | Physical Therapy Progress Note ---
Therapy Progress Note Patient on intubated and sedated. PT will continue to monitor patient status and initiate treatment when patient is medically stable and able to actively participate with skilled therapy. LORIE QUEVEDO PT Jun 08, 2022 14:46
[2022-06-08 14:48] LABS: PATIENT TEMP 38.4; VENTILATOR YES
[2022-06-08] MEDS: fentaNYL DRIP PRE-MIX 250 ML IV SCH (15:08)
[2022-06-08 16:24] LABS: POTASSIUM 3.7 MMOL/L (3.6-5.0)
[2022-06-08 16:30] LABS: CREATININE SERUM 1.8 MG/DL (0.60-1.30)
[2022-06-08] MEDS ORDERED: PIPERACILLIN SODIUM/TAZOBACTAM 4.5 GM in NS (IVPB) 100 ML IV SCH (17:00)
[2022-06-08] MEDS: D5 1/2 NS 1000 ML IV SOLUTION 1,000 ML IV SCH ×2 (17:34→21:53)
[2022-06-08] MEDS ORDERED: NS IV 1000 ML 1,000 ML ONE (18:00)
[2022-06-08] MEDS: meTOprolol 5 MG/5 ML (LOPRESSOR) VIAL IV SCH ×2 (19:05→20:00)
[2022-06-08 19:11] LABS: RED BLOOD CELL,CSF 0.001 10^6/uL (0-0); WHITE BLOOD CELL,CSF 0.032 10^3/uL (0-0.005)
[2022-06-08 19:15] LABS: APPEARANCE,CSF CLEAR; COLOR,CSF COLORLESS
[2022-06-08] MEDS ORDERED: ASPIRIN 81 MG CHEW (CHILDREN'S ASA) PO NR (19:15)
[2022-06-08 19:21] LABS: CSF GLUCOSE 248 MG/DL (50-80)
[2022-06-08] MEDS ORDERED: ROCURONIUM 50 MG/5 ML (ZEMURON) VIAL IV ONE (19:22)
[2022-06-08] MEDS ORDERED: ETOMIDATE IV SOLN 20 MG/10 ML VIAL IV ONE (19:22)
[2022-06-08] MEDS ORDERED: MIDAZOLAM 5 MG/5 ML (VERSED) VIAL INJ ONE (19:22)
--- NOTE | 2022-06-08 19:23 | Anesthesia-Procedure Note ---
Procedures/Interventions Procedure Start/Stop/Diagnosis Date of Procedure: Jun 08, 2022 Start Time: 17:45 Stop Time: 19:18 Lumbar Puncture Discussed Risk,Benefits: Yes (family) Patient Consents: Yes (family) Position: Lying, Left Sterile Technique: Yes Opening Pressure: 19 Fluid Color: clear Spinal Needle Used: 20g Quinke 3 1/2inch Arterial Line Arterial Line Catheter: 20G Type: Radial Location: Right (attempted unsuccessful) SHERIN STROUD CRNA Jun 08, 2022 19:23
[2022-06-08 19:27] LABS: CSF TOTAL PROTEIN 61 MG/DL (15-40)
[2022-06-08 19:43] LABS: CALCIUM 8.1 MG/DL (8.5-10.1); CREATININE SERUM 1.78 MG/DL (0.60-1.30); POTASSIUM 3.6 MMOL/L (3.6-5.0)
[2022-06-08 19:58] LABS: CSF TUBE NUMBER 4
[2022-06-08] MEDS: ENOXAPARIN 100 MG/1 ML (LOVENOX) SYR SC SCH (20:10)
[2022-06-08] MEDS ORDERED: AMPICILLIN FOR IV USE 2,000 MG in WATER (STERILE) FOR INJECTION 14.8 ML IV SCH (20:45)
[2022-06-08] MEDS ORDERED: levETIRAcetam 1000 mg/NS 100ml 100 ML IV SCH (21:00)
[2022-06-08] MEDS: SENNOSIDES 8.6 MG (SENOKOT) TAB PO SCH (21:50)
[2022-06-08] MEDS: DOCUSATE SODIUM 100 MG (COLACE) CAP PO SCH (21:50)
[2022-06-08] MEDS: AMPICILLIN 2,000 MG/NS 100 ML IVPB IV SCH ×2 (21:51)
[2022-06-08] MEDS: CEFEPIME INJECTION 2,000 MG in NS (IVPB) 50 ML IV SCH (21:51)
[2022-06-08 22:14] VITALS: BP 90/63
[2022-06-09 00:05] LABS: POTASSIUM 3.8 MMOL/L (3.6-5.0)
[2022-06-09 00:06] LABS: CALCIUM 7.8 MG/DL (8.5-10.1)
[2022-06-09 00:11] LABS: CREATININE SERUM 1.77 MG/DL (0.60-1.30)
[2022-06-09] MEDS: 1/2 NS IV SOLUTION 1,000 ML IV SCH ×3 (00:30→06:46)
[2022-06-09] MEDS: POTASSIUM CL 10MEQ/50ML IVPB 50 ML IV SCH ×5 (00:39→07:52)
[2022-06-09] MEDS: NOREPINEPHRINE 8 MG/250 ML 250 ML IV SCH ×2 (01:36→10:18)
[2022-06-09] MEDS: PROPOFOL DRIP (ICU) 100 ML IV SCH ×6 (01:36→21:49)
[2022-06-09] MEDS: D5 1/2 NS 1000 ML IV SOLUTION 1,000 ML IV SCH ×4 (01:57→17:35)
[2022-06-09] MEDS: RT-ALBUTEROL HFA 8.5 GM INHALER IH SCH ×4 (02:35→21:56)
[2022-06-09 02:36] VITALS: BP 129/76
[2022-06-09 03:41] LABS: BASOPHILS # (AUTO) 0.1 10^3/uL (0.0-0.1); BASOPHILS % (AUTO) 1 % (0-10); EOSINOPHILS % (AUTO) 0 % (0-10); HEMATOCRIT 41 % (40-54); HEMOGLOBIN 13.9 g/dL (13.3-17.7); LYMPHOCYTES # (AUTO) 1.1 10^3/uL (1.0-4.0); LYMPHOCYTES % (AUTO) 5 % (12-44); MEAN CORPUSCULAR HEMOGLOBIN 31 pg (25-34); MEAN CORPUSCULAR HGB CONC 34 g/dL (32-36); MEAN CORPUSCULAR VOLUME 89 fL (80-99); MEAN PLATELET VOLUME 10.4 fL (9.0-12.2); MONOCYTES # (AUTO) 0.7 10^3/uL (0.0-1.0); MONOCYTES % (AUTO) 3 % (0-12); NEUTROPHILS # (AUTO) 17.7 10^3/uL (1.8-7.8); NEUTROPHILS % (AUTO) 90 % (42-75); PLATELET COUNT 248 10^3/uL (130-400); WHITE BLOOD COUNT 19.7 10^3/uL (4.3-11.0)
[2022-06-09 03:50] LABS: CALCIUM 7.9 MG/DL (8.5-10.1)
[2022-06-09 03:51] LABS: TOTAL PROTEIN 5.3 GM/DL (6.4-8.2)
[2022-06-09 03:53] LABS: BILIRUBIN,TOTAL 0.4 MG/DL (0.1-1.0)
[2022-06-09 03:54] LABS: CREATININE SERUM 1.84 MG/DL (0.60-1.30); PHOSPHORUS 1.8 MG/DL (2.3-4.7)
[2022-06-09 03:57] LABS: MAGNESIUM 1.9 MG/DL (1.6-2.4)
[2022-06-09] MEDS: AMPICILLIN 2,000 MG/NS 100 ML IVPB IV SCH ×8 (04:22→21:48)
[2022-06-09] MEDS: meTOprolol 5 MG/5 ML (LOPRESSOR) VIAL IV SCH ×6 (04:22→20:10)
[2022-06-09] MEDS: KCL 20 MEQ TAB (K-DUR) PO SCH (05:01)
[2022-06-09] MEDS: MAGNESIUM 1 GM/100 ML IVPB 100 ML IV SCH (05:07)
[2022-06-09] MEDS: CEFEPIME INJECTION 2,000 MG in NS (IVPB) 50 ML IV SCH ×3 (05:51→21:48)
--- NOTE | 2022-06-09 06:27 | Progress Note ---
Subjective Date Seen by a Provider: Jun 09, 2022 Time Seen by a Provider: 11:00 Subjective/Events-last exam Still on vent Reviewed labs Kidneys and sugar improved CXR reviewed Complex case Focused Exam Lactate Level 06/08/22 09:14: Lactic Acid Level 4.13*H 06/08/22 11:35: Lactic Acid Level 2.28*H 06/08/22 14:10: Lactic Acid Level 1.54 Time of Focused Exam: 10:15 Objective Exam Last Set of Vital Signs Vital Signs Date Time Temp Pulse Resp B/P (MAP) Pulse Ox O2 Delivery O2 Flow Rate FiO2 06/09/22 06:00 68 14 93/72 (79) 98 Mechanical Ventilator 30.00 06/09/22 02:36 30 06/08/22 23:00 36.9 Capillary Refill : Greater Than 3 Seconds I&O Intake and Output 06/09/22 00:00 Intake Total 7835 ml Output Total 575 ml Balance 7260 ml Intake Oral 0 ml IV Total 7755 ml Other 80 ml Output Urine Total 575 ml Daily Weight Change Unsure General: Other (sedated and intubated) Lungs: Clear to Auscultation Heart: Regular Rate Results Lab Laboratory Tests 06/08/22 08:50: White Blood Count 20.3H, Red Blood Count 5.39, Hemoglobin 16.4, Hematocrit 47, Mean Corpuscular Volume 88, Mean Corpuscular Hemoglobin 30, Mean Corpuscular Hemoglobin Concent 35, Red Cell Distribution Width 12.9, Platelet Count 317, Mean Platelet Volume 11.0, Immature Granulocyte % (Auto) 1, Neutrophils (%) (Auto) 94H, Lymphocytes (%) (Auto) 3L, Monocytes (%) (Auto) 2, Eosinophils (%) (Auto) 0, Basophils (%) (Auto) 0, Neutrophils # (Auto) 19.2H, Lymphocytes # (Auto) 0.5L, Monocytes # (Auto) 0.5, Eosinophils # (Auto) 0.0, Basophils # (Auto) 0.1, Immature Granulocyte # (Auto) 0.1, Neutrophils % (Manual) 93, Lym phocytes % (Manual) 1, Monocytes % (Manual) 2, Band Neutrophils 4, Prothrombin Time 14.2, INR Comment 1.1, Activated Partial Thromboplast Time 27, Sodium Level 137, Potassium Level 4.7, Chloride Level 101, Carbon Dioxide Level 18L, Anion Gap 18H, Blood Urea Nitrogen 33H, Creatinine 2.16H, Estimat Glomerular Filtration Rate 33, BUN/Creatinine Ratio 15, Glucose Level 640*H, Mean Blood Glucose 303H, Hemoglobin A1c 12.2H, Calcium Level 9.3, Corrected Calcium 9.5, Total Bilirubin 0.8, Aspartate Amino Transf (AST/SGOT) 20, Alanine Aminotransferase (ALT/SGPT) 26, Alkaline Phosphatase 103, Troponin I 0.206H, Total Protein 6.9, Albumin 3.7, Triglycerides Level 110, Beta-Hydroxybutyrate (Chem panel) 4.38H, Serum Alcohol < 10 06/08/22 09:11: Urine Color YELLOW, Urine Clarity CLEAR, Urine pH 5.5, Urine Specific [place] 1.020, Urine Protein 3+H, Urine Glucose (UA) 3+H, Urine Ketones 2+H, Urine Nitrite NEGATIVE, Urine Bilirubin NEGATIVE, Urine Urobilinogen 0.2, Urine Leukocyte Esterase NEGATIVE, Urine RBC (Auto) 3+H, Urine RBC 2-5H, Urine WBC RARE, Urine Crystals NONE, Urine Bacteria NEGATIVE, Urine Casts PRESENT, Urine Hyaline Casts 0-2H, Urine Granular Casts RARE, Urine Mucus NEGATIVE, Urine C ulture Indicated NO, Urine Opiates Screen NEGATIVE, Urine Oxycodone Screen NEGATIVE, Urine Methadone Screen NEGATIVE, Urine Propoxyphene Screen NEGATIVE, Urine Barbiturates Screen NEGATIVE, Ur Tricyclic Antidepressants Screen NEGATIVE, Urine Phencyclidine Screen NEGATIVE, Urine Amphetamines Screen NEGATIVE, Urine Methamphetamines Screen NEGATIVE, Urine Benzodiazepines Screen NEGATIVE, Urine Cocaine Screen NEGATIVE, Urine Cannabinoids Screen NEGATIVE 06/08/22 09:14: Lactic Acid Level 4.13*H 06/08/22 10:04: Influenza Type A Antigen NEGATIVE, Influenza Type B Antigen NEGATIVE, SARS-CoV-2 RNA (RT-PCR) Not Detected 06/08/22 10:40: Blood Gas Puncture Site R radial, Blood Gas Patient Temperature 39.2, Arterial Blood pH 7.24*L, Arterial Blood Partial Pressure CO2 50H, Arterial Blood Partial Pressure O2 404H, Arterial Blood HCO3 20L, Arterial Blood Total CO2 21.4, Arterial Blood Oxygen Saturation 100, Arterial Blood Base Excess -5.8L, Hamlet Test , Blood Gas Ventilator Setting NO, Blood Gas Inspired Oxygen 100% 06/08/22 11:08: Glucometer 407*H 06/08/22 11:35: Lactic Acid Level 2.28*H 06/08/22 13:15: Glucometer 473*H 06/08/22 14:10: Lactic Acid Level 1.54 06/08/22 14:20: Glucometer 394H 06/08/22 14:33: Blood Gas Puncture Site , Blood Gas Patient Temperature 38.4, Arterial Blood pH 7.48H, Arterial Blood Partial Pressure CO2 37, Arterial Blood Partial Pressure O2 90, Arterial Blood HCO3 27, Arterial Blood Total CO2 28.3, Arterial Blood Ox ygen Saturation 79L, Arterial Blood Base Excess 3.7H, Hamlet Test , Blood Gas Ventilator Setting YES, Blood Gas Inspired Oxygen 06/08/22 16:00: Sodium Level 142, Potassium Level 3.7, Chloride Level 113#H, Carbon Dioxide Level 21, Anion Gap 8, Blood Urea Nitrogen 33H, Creatinine 1.80H, Estimat Glomerular Filtration Rate 42, BUN/Creatinine Ratio 18, Glucose Level 312H, Calcium Level 8.0L, Total Creatine Kinase 341H, Triglycerides Level 134, Beta-Hydroxybutyrate (Chem panel) 0.22 06/08/22 16:22: Glucometer 297H 06/08/22 17:31: Glucometer 230H 06/08/22 18:36: Glucometer 223H 06/08/22 18:45: Body Fluid Slide Review Yes, CSF Tube Number 4, CSF Appearance CLEAR, CSF Color COLORLESS, CSF WBC 0.032H, CSF RBC 0.001H, CSF Mononuclear Cells % (Auto) 34.4, CSF Polynuclear WBCs (%) 65.6, CSF Glucose 248H, CSF Total Protein 61H 06/08/22 19:15: Sodium Level 141, Potassium Level 3.6, Chloride Level 115H, Carbon Dioxide Level 19L, Anion Gap 7, Blood Urea Nitrogen 34H, Creatinine 1.78H, Estimat Glomerular Filtration Rate 42, BUN/Creatinine Ratio 19, Glucose Level 209H, Calcium Level 8.1L 06/08/22 19:44: Glucometer 196H 06/08/22 20:28: Glucometer 195H 06/08/22 21:28: Glucometer 162H 06/08/22 22:30: Sodium Level 141, Potassium Level 3.8, Chloride Level 114H, Carbon Dioxide Level 18L, Anion Gap 9, Blood Urea Nitrogen 31H, Creatinine 1.77H, Estimat Glomerular Filtration Rate 42, BUN/Creatinine Ratio 18, Glucose Level 205H, Glucometer 161H , Calcium Level 7.8L 06/08/22 23:37: Glucometer 166H 06/09/22 00:29: Glucometer 164H 06/09/22 01:40: Glucometer 168H 06/09/22 02:28: Glucometer 171H 06/09/22 03:29: Glucometer 173H 06/09/22 03:35: White Blood Count 19.7H, Red Blood Count 4.56, Hemoglobin 13.9, Hematocrit 41, Mean Corpuscular Volume 89, Mean Corpuscular Hemoglobin 31, Mean Corpuscular Hemoglobin Concent 34, Red Cell Distribution Width 13.4, Platelet Count 248, Mean Platelet Volume 10.4, Immature Granulocyte % (Auto) 1, Neutrophils (%) (Auto) 90H, Lymphocytes (%) (Auto) 5L, Monocytes (%) (Auto) 3, Eosinophils (%) (Auto) 0, Basophils (%) (Auto) 1, Neutrophils # (Auto) 17.7H, Lymphocytes # (Auto) 1.1, Monocytes # (Auto) 0.7, Eosinophils # (Auto) 0.0, Basophils # (Auto) 0.1, Immature Granulocyte # (Auto) 0.1, Sodium Level 139, Potassium Level 4.0, Chloride Level 114H, Carbon Dioxide Level 18L, Anion Gap 7, Blood Urea Nitrogen 30H, Creatinine 1.84H, Estimat Glomerular Filtration Rate 40, BUN/Creatinine Ratio 16, Glucose Level 218H, Calcium Level 7.9L, Corrected Calcium 8.7, Phosphorus Level 1.8L, Magnesium Level 1.9, Total Bilirubin 0.4, Aspartate Amino Transf (AST/SGOT) 17, Alanine Aminotransferase (ALT/SGPT) 20, Alkaline Phosphatase 73, Total Protein 5.3L, Albumin 3.0L 06/09/22 04:33: Glucometer 210H 06/09/22 06:01: Glucometer 238H Assessment/Plan Assessment/Plan Assess & Plan/Chief Complaint Assessment: AMS Acute respiratory failure AF RVR Seizure upon admit DKA MEGAN Plan: Vent Insulin drip non DKA now IV abx EICU appreciated along with Cardiology LUANN MCFARLANE DO Jun 09, 2022 06:27
[2022-06-09] MEDS: ENOXAPARIN 100 MG/1 ML (LOVENOX) SYR SC SCH ×2 (06:46→17:59)
[2022-06-09 06:50] VITALS: BP 126/87
--- NOTE | 2022-06-09 07:09 | Physical Therapy Progress Note ---
Therapy Progress Note Patient on intubated and sedated. PT will continue to monitor patient status and initiate treatment when patient is medically stable and able to actively participate with skilled therapy. LORIE QUEVEDO PT Jun 09, 2022 07:09
--- NOTE | 2022-06-09 07:16 | Diagnostic Imaging Report ---
INDICATION: Respiratory failure Portable chest 5:17 AM There is an ET tube projecting over the trachea. Right jugular central line tip projects over the SVC. NG tube in place. The location of the tip of the tube is indeterminate because of the film density. It can be traced at least as far as the lower esophagus. Lungs are clear. There are no effusions or pneumothoraces. IMPRESSION: No acute abnormalities in the chest. NG tube is at least as far as the distal esophagus. Dictated by: Dictated on workstation # [id number]
[2022-06-09] MEDS: SENNOSIDES 8.6 MG (SENOKOT) TAB PO SCH ×2 (07:55→21:49)
[2022-06-09] MEDS: DOCUSATE SODIUM 100 MG (COLACE) CAP PO SCH ×2 (07:55→21:49)
[2022-06-09] MEDS: ASPIRIN 81 MG CHEW (CHILDREN'S ASA) PO SCH (07:56)
[2022-06-09] MEDS: PANTOPRAZOLE 40 MG (PROTONIX) VIAL IV SCH (07:56)
--- NOTE | 2022-06-09 08:28 | Cardiology Progress Note ---
Subjective Date Seen by Provider: Jun 09, 2022 Time Seen by Provider: 08:24 Subjective/Events-last exam Patient is sedated and intubated. Review of Systems General: No Chills, No Night Sweats, No Fatigue, No Malaise, No Appetite, No Other HEENT: No Head Aches, No Visual Changes, No Eye Pain, No Ear Pain, No Dysphasia, No Sinus Congestion, No Post Nasal Drip, No Sore Throat, No Other Pulmonary: No Dyspnea, No Cough, No Pleuritic Chest Pain, No Other Cardiovascular: No: Chest Pain, Palpitations, Orthopnea, Paroxysmal Noc. Dyspnea, Edema, Lt Headedness, Other Focused Exam Lactate Level 06/08/22 09:14: Lactic Acid Level 4.13*H 06/08/22 11:35: Lactic Acid Level 2.28*H 06/08/22 14:10: Lactic Acid Level 1.54 Time of Focused Exam: 10:15 Objective-Cardiology Exam Last Set of Vital Signs Vital Signs 06/09/22 06/09/22 06/09/22 07:05 07:45 08:00 Temp 36.0 Pulse 59 Resp 18 B/P (MAP) 119/85 (93) Pulse Ox 95 O2 Delivery Mechanical Ventilator O2 Flow Rate 21.00 FiO2 21 I&O Intake and Output 06/09/22 00:00 Intake Total 7835 ml Output Total 575 ml Balance 7260 ml Intake Oral 0 ml IV Total 7755 ml Other 80 ml Output Urine Total 575 ml Daily Weight Change Unsure General: Other (Ventilator dependent) HEENT: Atraumatic Neck: Supple Lungs: Normal Air Movement Heart: Regular Rate, Normal S1, Normal S2, Other (Frequent PVCs) Abdomen: Normal Bowel Sounds Extremities: No Clubbing, No Cyanosis Skin: No Rashes Neuro: Other (Sedated and intubated) Psych/Mental Status: Other (Sedated and intubated) Results Lab Laboratory Tests 06/08/22 08:50 06/08/22 16:00 06/08/22 19:15 06/08/22 22:30 06/09/22 03:35 A/P-Cardiology Admission Diagnosis Acute respiratory failure Paroxysmal atrial fibrillation Change in mental status Type II myocardial infarction Assessment/Plan Acute respiratory failure, ventilator dependent. Review of his record showed that he was agitated on arrival to the emergency room, combative Had change in mental status and he was intubated Sepsis with septic shock, maintained on pressors Managed by medical team Diabetic ketoacidosis, uncontrolled diabetes due to noncompliance. Improving slowly Acute renal failure, monitor renal function Paroxysmal atrial fibrillation versus multifocal atrial tachycardia Currently in sinus rhythm with frequent PVCs and ventricular bigeminy, will use low-dose beta-blockers once his blood pressure is more stable Mild elevation in troponin, type II myocardial infarction secondary to respiratory failure and hypoxemia and sepsis. History of seizure disorder, questionable seizure activity History of methamphetamine use History of CVA in 2013 with speech impairment History of noncompliance with medications REKHA BUSTOS MD Jun 09, 2022 08:28
[2022-06-09 08:42] LABS: ABG BASE EXCESS -6.7 MMOL/L (-2.5-2.5); ABG OXYGEN SATURATION 94 % (94-100); ABG PCO2 38 MMHG (35-45); ABG PO2 63 MMHG (79-93)
[2022-06-09 08:46] LABS: ABG PH 7.31 (7.37-7.43); ALLENS TEST YES-POS; INSPIRED O2 ROOM AIR; PATIENT TEMP 35.6; VENTILATOR NO
[2022-06-09] MEDS ORDERED: SODIUM PHOSPHATE INJ 15 MM in D5W 100 ML IVPB 100 ML IV ONE (09:30)
[2022-06-09 10:20] VITALS: BP 118/61
[2022-06-09] MEDS: fentaNYL DRIP PRE-MIX 250 ML IV SCH (10:20)
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
[2022-06-09] MEDS: VANCOMYCIN 1500MG/300ML PREMIX IV SCH (10:32)
[2022-06-09] MEDS: dilTIAZem DRIP PRE-MIX 125 ML IV SCH (11:03)
--- NOTE | 2022-06-09 11:19 | Occ Therapy Progress Note ---
Therapy Progress Note Pt continues on ventilator and is sedated. Will continue to monitor for ability to participate in evaluation and treatment. ASHLI STEELE OT Jun 09, 2022 11:19
[2022-06-09] MEDS ORDERED: POTA-177 PO (14:32)
[2022-06-09] MEDS ORDERED: LEVE250T5 PO (14:32)
[2022-06-09] MEDS ORDERED: DAPA10TA PO (14:32)
[2022-06-09] MEDS ORDERED: LEVE10006 PO (14:32)
[2022-06-09 15:00] VITALS: BP 125/78
[2022-06-09 18:25] VITALS: BP 112/65
[2022-06-09 21:56] VITALS: BP 106/82
[2022-06-10] MEDS: meTOprolol 5 MG/5 ML (LOPRESSOR) VIAL IV SCH ×6 (00:29→19:50)
[2022-06-10] MEDS: D5 1/2 NS 1000 ML IV SOLUTION 1,000 ML IV SCH ×4 (00:29→23:40)
[2022-06-10 02:13] VITALS: BP 99/70
[2022-06-10] MEDS: RT-ALBUTEROL HFA 8.5 GM INHALER IH SCH ×4 (02:13→21:29)
[2022-06-10] MEDS: fentaNYL DRIP PRE-MIX 250 ML IV SCH ×2 (03:10→19:17)
[2022-06-10] MEDS: AMPICILLIN 2,000 MG/NS 100 ML IVPB IV SCH ×8 (04:10→21:33)
[2022-06-10] MEDS: PROPOFOL DRIP (ICU) 100 ML IV SCH ×3 (04:10→16:21)
[2022-06-10 04:46] LABS: BASOPHILS % (AUTO) 0 % (0-10); EOSINOPHILS # (AUTO) 4.1 10^3/uL (0.0-0.3); EOSINOPHILS % (AUTO) 18 % (0-10); HEMATOCRIT 39 % (40-54); HEMOGLOBIN 13.5 g/dL (13.3-17.7); LYMPHOCYTES # (AUTO) 0.7 10^3/uL (1.0-4.0); LYMPHOCYTES % (AUTO) 3 % (12-44); MEAN CORPUSCULAR HEMOGLOBIN 31 pg (25-34); MEAN CORPUSCULAR HGB CONC 34 g/dL (32-36); MEAN CORPUSCULAR VOLUME 89 fL (80-99); MEAN PLATELET VOLUME 10.8 fL (9.0-12.2); MONOCYTES # (AUTO) 1.1 10^3/uL (0.0-1.0); MONOCYTES % (AUTO) 5 % (0-12); NEUTROPHILS # (AUTO) 17.2 10^3/uL (1.8-7.8); NEUTROPHILS % (AUTO) 74 % (42-75); PLATELET COUNT 238 10^3/uL (130-400); WHITE BLOOD COUNT 23.3 10^3/uL (4.3-11.0)
[2022-06-10] MEDS: CEFEPIME INJECTION 2,000 MG in NS (IVPB) 50 ML IV SCH ×3 (04:49→20:45)
[2022-06-10 04:56] LABS: ALBUMIN 2.5 GM/DL (3.2-4.5); POTASSIUM 3.8 MMOL/L (3.6-5.0)
[2022-06-10 04:58] LABS: CALCIUM 7.6 MG/DL (8.5-10.1)
[2022-06-10 04:59] LABS: TOTAL PROTEIN 4.7 GM/DL (6.4-8.2)
[2022-06-10 05:01] LABS: BILIRUBIN,TOTAL 0.3 MG/DL (0.1-1.0)
[2022-06-10 05:02] LABS: CREATININE SERUM 1.27 MG/DL (0.60-1.30); PHOSPHORUS 3.6 MG/DL (2.3-4.7)
[2022-06-10 05:05] LABS: MAGNESIUM 1.8 MG/DL (1.6-2.4)
[2022-06-10 05:21] LABS: ABG BASE EXCESS -7.1 MMOL/L (-2.5-2.5); ABG OXYGEN SATURATION 95 % (94-100); ABG PCO2 37 MMHG (35-45); ABG PO2 68 MMHG (79-93); ABG TCO2 19.4 MMOL/L (21.0-31.0)
[2022-06-10 05:22] LABS: ALLENS TEST YES-POS; INSPIRED O2 21%; PATIENT TEMP 36.4; VENTILATOR NO
[2022-06-10 05:23] LABS: ABG PH 7.31 (7.37-7.43)
--- NOTE | 2022-06-10 05:36 | Progress Note ---
Subjective Date Seen by a Provider: Jun 10, 2022 Time Seen by a Provider: 11:00 Subjective/Events-last exam Still on vent No seizures Updated brother at bedside Wean did not go well since sedation wean resulted in agitation Focused Exam Lactate Level 06/08/22 09:14: Lactic Acid Level 4.13*H 06/08/22 11:35: Lactic Acid Level 2.28*H 06/08/22 14:10: Lactic Acid Level 1.54 Time of Focused Exam: 10:15 Objective Exam Last Set of Vital Signs Vital Signs Date Time Temp Pulse Resp B/P (MAP) Pulse Ox O2 Delivery O2 Flow Rate FiO2 06/10/22 05:00 59 21 102/68 (79) 96 Mechanical Ventilator 21.00 06/10/22 02:13 21 06/09/22 20:00 36.1 Capillary Refill : Greater Than 3 Seconds I&O Intake and Output 06/10/22 00:00 Intake Total 3485 ml Output Total 1425 ml Balance 2060 ml Intake Oral 0 ml IV Total 3205 ml Other 280 ml Output Urine Total 1425 ml General: No Acute Distress, Other (on vent and sedated) Lungs: Clear to Auscultation Heart: Regular Rate Results Lab Laboratory Tests 06/09/22 06:01: Glucometer 238H 06/09/22 06:40: Glucometer 253H 06/09/22 07:30: Glucometer 238H 06/09/22 08:35: Blood Gas Puncture Site RT RADIAL, Blood Gas Patient Temperature 35.6, Arterial Blood pH 7.31*L, Arterial Blood Partial Pressure CO2 38, Arterial Blood Partial Pressure O2 63L, Arterial Blood HCO3 19L, Arterial Blood Total CO2 20.0L, Arteri al Blood Oxygen Saturation 94, Arterial Blood Base Excess -6.7L, Hamlet Test YES- POS, Blood Gas Ventilator Setting NO, Blood Gas Inspired Oxygen ROOM AIR 06/09/22 08:42: Glucometer 232H 06/09/22 09:28: Glucometer 254H 06/09/22 10:28: Glucometer 226H 06/09/22 11:42: Glucometer 219H 06/09/22 12:38: Glucometer 220H 06/09/22 14:08: Glucometer 179H 06/09/22 15:44: Glucometer 153H 06/09/22 16:23: Glucometer 143H 06/09/22 17:26: Glucometer 133H 06/09/22 19:35: Glucometer 106 06/09/22 20:30: Glucometer 101 06/09/22 21:33: Glucometer 75 06/09/22 22:16: Glucometer 73 06/09/22 22:29: Glucometer 82 06/09/22 23:17: Glucometer 89 06/09/22 23:53: Glucometer 91 06/10/22 01:06: Glucometer 112H 06/10/22 02:05: Glucometer 118H 06/10/22 03:12: Glucometer 117H 06/10/22 04:15: White Blood Count 23.3H, Red Blood Count 4.41, Hemoglobin 13.5, Hematocrit 39L, Mean Corpuscular Volume 89, Mean Corpuscular Hemoglobin 31, Mean Corpuscular Hemoglobin Concent 34, Red Cell Distribution Width 13.2, Platelet Count 238, Mean Platelet Volume 10.8, Immature Granulocyte % (Auto) 1, Neutrophils (%) (Auto) 74, Lymphocytes (%) (Auto) 3L, Monocytes (%) (Auto) 5, Eosinophils (%) (Auto) 18H, Basophils (%) (Auto) 0, Neutrophils # (Auto) 17.2H, Lymphocytes # (Auto) 0.7L, Monocytes # (Auto) 1.1H, Eosinophils # (Auto) 4.1H, Basophils # (Auto) 0.0, Immature Granulocyte # (Auto) 0.2H, Sodium Level 137, Potassium Level 3.8, Chloride Level 114H, Carbon Dioxide Level 17L, Anion Gap 6, Blood Urea Nitrogen 27H, Creatinine 1.27, Estimat Glomerular Filtration Rate 63, BUN/Creatinine Ratio 21, Glucose Level 133H, Calcium Level 7.6L, Corrected Calcium 8.8, Phosphorus Level 3.6, Magnesium Level 1.8, Total Bilirubin 0.3, Aspartate Amino Transf (AST/SGOT) 16, Alanine Aminotransferase (ALT/SGPT) 16, Alkaline Phosphatase 64, Total Protein 4.7L, Albumin 2.5L, Triglycerides Level 90 06/10/22 04:20: Glucometer 138H 06/10/22 05:12: Glucometer 104 06/10/22 05:15: Blood Gas Puncture Site R RAD, Blood Gas Patient Temperature 36.4, Arterial Blood pH 7.31*L, Arterial Blood Partial Pressure CO2 37, Arterial Blood Partial Pressure O2 68L, Arterial Blood HCO3 18L, Arterial Blood Total CO2 19.4L, Arterial Blood Oxygen Saturation 95, Arterial Blood Base Excess -7.1L, Hamlet Test YES-POS, Blood Gas Ventilator Setting NO, Blood Gas Inspired Oxygen 21% Microbiology 06/08/22 Gram Stain - Final, Resulted 06/08/22 CSF Culture - Preliminary, Resulted No growth 06/08/22 MRSA Screen - Final, Complete MRSA not isolated 06/08/22 Blood Culture - Preliminary, Resulted Gram Positive Cocci in Cluster See Comments 06/08/22 Urine Culture - Final, Complete NO GROWTH Assessment/Plan Assessment/Plan Assess & Plan/Chief Complaint Assessment: AMS Acute respiratory failure AF RVR Seizure upon admit DKA MEGAN Plan: Vent Insulin drip non DKA now IV abx EICU appreciated along with Cardiology s/p LP results reviewed LUANN MCFARLANE DO Jun 10, 2022 05:36
[2022-06-10] MEDS: KCL 20 MEQ TAB (K-DUR) PO SCH (06:38)
[2022-06-10] MEDS: POTASSIUM CL 10MEQ/50ML IVPB 50 ML IV SCH (06:38)
[2022-06-10] MEDS: MAGNESIUM 1 GM/100 ML IVPB 100 ML IV SCH (06:38)
[2022-06-10] MEDS: ENOXAPARIN 100 MG/1 ML (LOVENOX) SYR SC SCH ×2 (06:54→18:24)
[2022-06-10 07:13] VITALS: BP 106/64
--- NOTE | 2022-06-10 08:06 | Diagnostic Imaging Report ---
INDICATION: Ventilator support. Time of Exam: 4:45 AM Correlation is made with prior chest one day earlier. ET tube is above the rylie. Right IJ line has tip overlying the SVC. Heart size stable. Lungs appear clear. No infiltrates are seen. There is no effusion or pneumothorax. IMPRESSION: No acute cardiopulmonary process is detected. Dictated by: Dictated on workstation # [id number]
--- NOTE | 2022-06-10 08:32 | Physical Therapy Progress Note ---
Therapy Progress Note Patient is intubated and sedated. PT will continue to monitor patient status and initiate treatment when patient is medically stable and able to actively participate with skilled therapy. SUN QUINTERO PT Jun 10, 2022 08:32
[2022-06-10] MEDS: NOREPINEPHRINE 8 MG/250 ML 250 ML IV SCH ×2 (09:23→23:46)
[2022-06-10] MEDS: ASPIRIN 81 MG CHEW (CHILDREN'S ASA) PO SCH (09:24)
[2022-06-10] MEDS: SENNOSIDES 8.6 MG (SENOKOT) TAB PO SCH ×2 (09:24→20:45)
[2022-06-10] MEDS: PANTOPRAZOLE 40 MG (PROTONIX) VIAL IV SCH (09:24)
[2022-06-10] MEDS: DOCUSATE SODIUM 100 MG (COLACE) CAP PO SCH ×2 (09:24→20:45)
[2022-06-10] MEDS ORDERED: TROUGH ORDER-PHARMACY XX NR (10:00)
--- NOTE | 2022-06-10 10:24 | Cardiology Progress Note ---
Subjective Date Seen by Provider: Jun 10, 2022 Time Seen by Provider: 10:23 Subjective/Events-last exam Patient is sedated and intubated. Review of Systems General: Other (Unable to provide review of system) Focused Exam Lactate Level 06/08/22 09:14: Lactic Acid Level 4.13*H 06/08/22 11:35: Lactic Acid Level 2.28*H 06/08/22 14:10: Lactic Acid Level 1.54 Time of Focused Exam: 10:15 Objective-Cardiology Exam Last Set of Vital Signs Vital Signs 06/10/22 06/10/22 06/10/22 06/10/22 07:13 07:48 09:00 10:11 Temp 36.2 Pulse 60 Resp 19 B/P (MAP) 123/69 Pulse Ox 94 O2 Delivery Mechanical Ventilator O2 Flow Rate 21.00 FiO2 21 I&O Intake and Output 06/10/22 00:00 Intake Total 3485 ml Output Total 1425 ml Balance 2060 ml Intake Oral 0 ml IV Total 3205 ml Other 280 ml Output Urine Total 1425 ml General: Other (sedated and intubated) HEENT: Atraumatic Neck: Supple Lungs: Clear to Auscultation Heart: Regular Rate Abdomen: Normal Bowel Sounds Extremities: No Clubbing, No Cyanosis Skin: No Rashes Neuro: Other (Sedated and intubated) Psych/Mental Status: Other (Sedated and intubated) Results Lab Laboratory Tests 06/10/22 04:15 A/P-Cardiology Admission Diagnosis Acute respiratory failure Paroxysmal atrial fibrillation Change in mental status Type II myocardial infarction Assessment/Plan Acute respiratory failure, ventilator dependent. Review of his record showed that he was agitated on arrival to the emergency room, combative Had change in mental status and he was intubated Probably anoxic brain injury. Managed by medical team Sepsis with septic shock, maintained on pressors Managed by medical team Diabetic ketoacidosis, uncontrolled diabetes due to noncompliance. Improving slowly Acute renal failure, monitor renal function Paroxysmal atrial fibrillation versus multifocal atrial tachycardia Currently in sinus rhythm with frequent PVCs and ventricular bigeminy, will use low-dose beta-blockers once his blood pressure is more stable Mild elevation in troponin, type II myocardial infarction secondary to respiratory failure and hypoxemia and sepsis. History of seizure disorder, questionable seizure activity History of methamphetamine use History of CVA in 2013 with speech impairment History of noncompliance with medications REKHA BUSTOS MD Jun 10, 2022 10:24
[2022-06-10 10:31] VITALS: BP 113/69
[2022-06-10] MEDS: VANCOMYCIN 1500MG/300ML PREMIX IV SCH (11:28)
--- NOTE | 2022-06-10 12:05 | Tele-ICU Progress Note ---
Subjective Date Seen by a Provider: Jun 10, 2022 Time Seen by a Provider: 12:03 Subjective/Events-last exam (Tele-ICU Physician , Progress Note ) Service provided via interactive audio and video telecommunications E-CARE system to a patient admitted to ICU bed in [facility]. Patient is seen today due to persistent need of ICU care Available chart/ vitals / labs / Images reviewed Video assessment done using teleICU camera, rest of exam as per RN Is a 66-year-old male with past medical history of hypertension, polysubstance abuse, seizure disorder, stroke, traumatic brain injury and hepatitis C presented to the emergency room with altered mental status. Apparently upon presentation to the emergency room he was incoherent and agitated he is intubated and put on mechanical ventilation for airway protection. Subsequently he is found to be in diabetic ketoacidosis and atrial fibrillation with RVR. He is a sedated. He was moving all 4 limbs but demonstrating signs of distress. He was put on CIWA protocol and given IV insulin now metabolic abnormalities resolved. He is currently on a vent tidal volume of 450/respiratory rate of 22 PEEP of 5 and FiO2 of 21%. Today the sedation was reduced today and tried to do a SBT but he is severely agitated and fighting the vent hence he is put back on sedation as well as put on assist control. At this time I have started on Precedex drip in preparation for weaning fentanyl and propofol to try him on SBT tomorrow. Also he is suspected to have a sepsis and he is being treated with Zosyn and vancomycin. His blood cultures grew gram-positive cocci in clusters presumably Staph aureus. Lumbar puncture was done and so far CSF grew no organisms and the analysis is suggestive of his uncontrolled diabetes mellitus rather than an infectious etiology. Impression 1. Severe sepsis due to gram-positive organisms 2. Acute hypoxic respiratory failure 3. Diabetic ketoacidosis 4. Polysubstance abuse but at this time his urine drug screen is negative. Recommendations 1. We will continue IV antibiotics and await for identification and sensitivity of the organism 2. Continue to monitor his glucose levels 3. We will start on a Precedex drip and wean fentanyl and propofol as tolerated 4. Continue current vent settings and as he tolerates after starting Precedex will wean propofol and fentanyl and try SBT tomorrow. 5. DVT prophylaxis and ulcer prophylaxis. I am remotely monitoring this patient from Tele icu station in [place]. I am unable to do the bedside exam, and history/physical and pertinent information is taken from other notes in the computer and bedside staff. Certain portions of this document may have been dictated utilizing voice recognition technology such as [employer]. Inherent to this technology, typogr aphical and grammatical errors may exist. As much as I am diligent to identify and correct to these mistakes, some errors may remain in the document. Critical care time due to gated to this patient today is 38 Sepsis Event Evaluation Height, Weight, BMI Height: 6'2.00" Weight: 259lbs. 0.0oz. 117.161313zk; 32.21 BMI Method:Estimated Focused Exam Lactate Level 06/08/22 09:14: Lactic Acid Level 4.13*H 06/08/22 11:35: Lactic Acid Level 2.28*H 06/08/22 14:10: Lactic Acid Level 1.54 Time of Focused Exam: 10:15 Exam Exam Patient acknowledged, consented, and participated in this virtual visit which was conducted using real time audio/video Vital Signs Date Time Temp Pulse Resp B/P (MAP) Pulse Ox O2 Delivery O2 Flow Rate FiO2 06/10/22 11:55 36.6 06/10/22 11:00 61 21 100/64 (76) 95 Mechanical Ventilator 21.00 06/10/22 10:31 60 22 94 21 06/10/22 10:11 60 123/69 06/10/22 10:00 60 22 106/73 (87) 94 Mechanical Ventilator 21.00 06/10/22 09:23 60 123/69 06/10/22 09:00 58 19 121/73 (91) 94 Mechanical Ventilator 21.00 06/10/22 08:10 60 123/69 06/10/22 08:00 60 21 123/69 (88) 95 Mechanical Ventilator 21.00 06/10/22 08:00 95 Mechanical Ventilator 21.00 06/10/22 07:48 36.2 06/10/22 07:13 59 22 95 21 06/10/22 07:10 60 123/69 06/10/22 07:00 59 06/10/22 07:00 58 21 106/64 (80) 94 Mechanical Ventilator 21.00 06/10/22 06:00 58 22 101/65 (77) 94 Mechanical Ventilator 21.00 06/10/22 05:00 59 21 102/68 (79) 96 Mechanical Ventilator 21.00 06/10/22 04:00 94 Mechanical Ventilator 21.00 06/10/22 04:00 61 22 109/73 (85) 95 Mechanical Ventilator 21.00 06/10/22 04:00 36.4 06/10/22 03:00 60 21 104/72 (83) 94 Mechanical Ventilator 21.00 06/10/22 02:13 59 22 94 21 06/10/22 02:00 62 22 106/72 (83) 94 Mechanical Ventilator 21.00 06/10/22 01:00 72 06/10/22 01:00 64 22 116/72 (87) 99 Mechanical Ventilator 21.00 06/10/22 00:00 36.6 06/10/22 00:00 97 Mechanical Ventilator 21.00 06/10/22 00:00 57 21 135/84 (101) 96 Mechanical Ventilator 21.00 06/09/22 23:00 64 21 112/72 (85) 96 Mechanical Ventilator 21.00 06/09/22 22:00 64 21 122/98 (106) 94 Mechanical Ventilator 21.00 06/09/22 21:56 60 22 98 21 06/09/22 21:00 61 21 119/70 (86) 96 Mechanical Ventilator 21.00 06/09/22 20:04 96 Mechanical Ventilator 21.00 06/09/22 20:00 59 21 115/69 (84) 96 Mechanical Ventilator 21.00 06/09/22 20:00 36.1 06/09/22 19:00 60 06/09/22 19:00 57 21 122/55 (77) 97 Mechanical Ventilator 21.00 06/09/22 18:25 54 22 96 21 06/09/22 18:00 56 21 108/83 (87) 96 Mechanical Ventilator 21.00 06/09/22 17:00 55 21 107/88 (93) 96 Mechanical Ventilator 21.00 06/09/22 16:00 54 21 114/71 (94) 96 Mechanical Ventilator 21.00 06/09/22 15:16 95 Mechanical Ventilator 21.00 06/09/22 15:00 56 28 125/78 (89) 94 Mechanical Ventilator 21.00 06/09/22 15:00 56 22 94 21 06/09/22 14:00 62 12 107/77 (85) 97 Mechanical Ventilator 21.00 06/09/22 13:00 64 06/09/22 13:00 57 13 125/77 (85) 96 Mechanical Ventilator 21.00 I & O 06/10/22 07:00 Intake Total 2735 ml Output Total 1400 ml Balance 1335 ml Height & Weight Height: 6'2.00" Weight: 259lbs. 0.0oz. 117.210297ks; 32.21 BMI Method:Estimated General Appearance: Chronically ill, Other (intubated and sedated) HEENT: Other (POOR DENTITION, MULTIPLE CARIOUS TEETH; DRY ORAL MUCOSA; ABRASION/CONTUSION RIGHT HINDU/FOREHEAD) Neck: Normal Inspection, Supple Respiratory: Normal Breath Sounds, No Accessory Muscle Use, No Respiratory Distress Cardiovascular: Regular Rate, Rhythm Capillary Refill: Greater Than 3 Seconds (bilateral hands and feet) Peripheral Pulses: 2+ Dorsalis Pedis (R), 2+ Left Dors-Pedis (L), 2+ Radial Pulses (R), 2+ Radial Pulses (L) Gastrointestinal: normal bowel sounds, soft Extremity: Normal Range of Motion; No Pedal Edema, No Swelling Skin: Warm/Dry; No Rash; Other (R knee abrasion, L 4th toe closed blood blister, L 3rd toe closed blister, scabs on bilateral hands, L tomas scab, R back bruise, R head bruise, R eye blister) Results Lab Laboratory Tests 06/08/22 16:00 06/08/22 19:15 06/08/22 22:30 06/09/22 03:35 06/10/22 04:15 Assessment/Plan Assessment/Plan ABOVE Critical Care: Critically Ill Patient Time spent with patient (mins): 38 MIGUEL HONEYCUTT MD Jun 10, 2022 12:05
[2022-06-10] MEDS: dilTIAZem DRIP PRE-MIX 125 ML IV SCH (13:27)
[2022-06-10] MEDS: DexMEDEtomidine 250 ML DRIP 250 ML IV SCH (13:57)
[2022-06-10 14:04] VITALS: BP 103/67
[2022-06-10 18:12] VITALS: BP 91/58
[2022-06-10 21:29] VITALS: BP 85/64
[2022-06-10] MEDS ORDERED: DEXTROSE 50% 50 ML (IMS) SYR ONE (21:44)
[2022-06-10] MEDS ORDERED: DEXTROSE 50% 50 ML (IMS) SYR IV ONE (21:45)
[2022-06-11] MEDS: PROPOFOL DRIP (ICU) 100 ML IV SCH (00:01)
[2022-06-11 03:17] VITALS: BP 85/64
[2022-06-11] MEDS: AMPICILLIN 2,000 MG/NS 100 ML IVPB IV SCH ×4 (03:46→09:09)
[2022-06-11] MEDS: D5 1/2 NS 1000 ML IV SOLUTION 1,000 ML IV SCH ×3 (03:46→18:24)
[2022-06-11] MEDS: meTOprolol 5 MG/5 ML (LOPRESSOR) VIAL IV SCH ×7 (04:00→23:31)
[2022-06-11] MEDS: CEFEPIME INJECTION 2,000 MG in NS (IVPB) 50 ML IV SCH ×2 (04:47→12:08)
[2022-06-11 05:09] LABS: BASOPHILS % (AUTO) 0 % (0-10); EOSINOPHILS % (AUTO) 0 % (0-10); HEMATOCRIT 42 % (40-54); HEMOGLOBIN 14.3 g/dL (13.3-17.7); LYMPHOCYTES # (AUTO) 1.8 10^3/uL (1.0-4.0); LYMPHOCYTES % (AUTO) 12 % (12-44); MEAN CORPUSCULAR HEMOGLOBIN 31 pg (25-34); MEAN CORPUSCULAR HGB CONC 34 g/dL (32-36); MEAN CORPUSCULAR VOLUME 90 fL (80-99); MEAN PLATELET VOLUME 10.9 fL (9.0-12.2); MONOCYTES # (AUTO) 0.8 10^3/uL (0.0-1.0); MONOCYTES % (AUTO) 6 % (0-12); NEUTROPHILS # (AUTO) 12.5 10^3/uL (1.8-7.8); NEUTROPHILS % (AUTO) 82 % (42-75); PLATELET COUNT 249 10^3/uL (130-400); WHITE BLOOD COUNT 15.2 10^3/uL (4.3-11.0)
[2022-06-11 05:15] LABS: ALBUMIN 2.4 GM/DL (3.2-4.5); POTASSIUM 3.3 MMOL/L (3.6-5.0)
[2022-06-11 05:17] LABS: CALCIUM 7.6 MG/DL (8.5-10.1)
[2022-06-11 05:18] LABS: TOTAL PROTEIN 4.6 GM/DL (6.4-8.2)
[2022-06-11 05:20] LABS: BILIRUBIN,TOTAL 0.3 MG/DL (0.1-1.0)
[2022-06-11 05:21] LABS: PHOSPHORUS 3.3 MG/DL (2.3-4.7)
[2022-06-11 05:22] LABS: CREATININE SERUM 1.23 MG/DL (0.60-1.30)
[2022-06-11 05:24] LABS: MAGNESIUM 1.8 MG/DL (1.6-2.4)
--- NOTE | 2022-06-11 05:40 | Progress Note - Hospitalist ---
Subjective HPI/CC On Admission Date Seen by Provider: Jun 11, 2022 Time Seen by Provider: 08:30 CC: Respiratory failure HPI: This is a 66yoWM clinic patient CHC who presented to the ER with AMS and fever with new onset AF RVR with seizures and MEGAN with DKA. No history obtainable. No source of AMS or fever noted on w/u although abx initiated empirically. LP performed revealing minimal abnormalities but will maintain men ingitis coverage until CX returns. Poor prognosis given the multiple critical illness components. Subjective/Events-last exam Still on vent UOP good DC insulin drip No seizures NO major concerns Focused Exam Lactate Level Time of Focused Exam: 10:15 Objective Exam Vital Signs Vital Signs Date Time Temp Pulse Resp B/P (MAP) Pulse Ox O2 Delivery O2 Flow Rate FiO2 06/11/22 14:38 95 Room Air 06/11/22 14:00 53 17 118/76 (91) 06/11/22 12:24 36.0 06/11/22 11:00 21.00 06/11/22 10:10 21 Capillary Refill : Greater Than 3 Seconds General Appearance: No Apparent Distress, WD/WN, Chronically ill, Other (i ntubated and sedated) Respiratory: No Accessory Muscle Use, No Respiratory Distress, Decreased Breath Sounds Cardiovascular: Regular Rate, Rhythm Results/Procedures Lab Laboratory Tests 06/11/22 04:44 Patient resulted labs reviewed. Assessment/Plan Assessment and Plan Assess & Plan/Chief Complaint Assessment: AMS Acute respiratory failure AF RVR Seizure upon admit DKA MEGAN Plan: Vent Insulin drip dc IV abx EICU appreciated along with Cardiology s/p LP results reviewed [facility] Critical Care Critically Ill Patient MCFARLANERAZA LOWRYMinda PACE Jun 11, 2022 05:40
[2022-06-11] MEDS ORDERED: DEXTROSE 50% 50 ML (IMS) SYR IV ONE (06:15)
[2022-06-11] MEDS ORDERED: MAGNESIUM 1 GM/100 ML IVPB 200 ML IV ONE (06:26)
[2022-06-11] MEDS ORDERED: POTASSIUM CL 10MEQ/50ML IVPB 200 ML IV ONE (06:26)
[2022-06-11] MEDS: POTASSIUM CL 10MEQ/50ML IVPB 50 ML IV SCH ×8 (06:28→15:27)
[2022-06-11] MEDS: MAGNESIUM 1 GM/100 ML IVPB 100 ML IV SCH ×3 (06:28→06:43)
[2022-06-11] MEDS: ENOXAPARIN 100 MG/1 ML (LOVENOX) SYR SC SCH ×2 (06:28→18:23)
[2022-06-11] MEDS: KCL 20 MEQ TAB (K-DUR) PO SCH (06:43)
[2022-06-11 06:45] VITALS: BP 92/61
[2022-06-11 07:32] LABS: ABG BASE EXCESS -7.6 MMOL/L (-2.5-2.5); ABG OXYGEN SATURATION 97 % (94-100); ABG PCO2 32 MMHG (35-45); ABG PO2 73 MMHG (79-93); ABG TCO2 18.3 MMOL/L (21.0-31.0)
[2022-06-11 07:37] LABS: ABG PH 7.34 (7.37-7.43)
[2022-06-11 07:38] LABS: INSPIRED O2 21%; VENTILATOR NO
[2022-06-11] MEDS ORDERED: inSUlin ASPART (NovoLOG) 1 UNIT/0.01 ML (CHARGE PER UNIT) SC SCH (08:00)
--- NOTE | 2022-06-11 08:01 | Diagnostic Imaging Report ---
Indication: Respiratory failure. COMPARISON: 06/10/2022 FINDINGS: Single frontal radiograph view the chest was obtained and demonstrates indwelling endotracheal tube with tip at the clavicular heads. Gastric tube is also noted, but is heavily obscured and likely extends inferiorly beyond the [id number]. Right internal jugular central venous catheter is also seen with tip in the mid to upper SVC. Lungs continue to show small left effusion and low inspiratory volumes. Right lung is relatively clear. There is no large effusion on the right. No pneumothorax is seen on either side. Cardiac silhouette and pulmonary vasculature are within normal limits. IMPRESSION: 1. Lines and tubes as above. 2. Stable exam of the chest showing small left effusion and low inspiratory volumes. Dictated by: Dictated on workstation # [id number]
[2022-06-11] MEDS: PANTOPRAZOLE 40 MG (PROTONIX) VIAL IV SCH (08:54)
[2022-06-11] MEDS: DOCUSATE SODIUM 100 MG (COLACE) CAP PO SCH ×2 (08:54→20:40)
[2022-06-11] MEDS: SENNOSIDES 8.6 MG (SENOKOT) TAB PO SCH ×2 (08:54→20:40)
[2022-06-11] MEDS: ASPIRIN 81 MG CHEW (CHILDREN'S ASA) PO SCH (08:54)
--- NOTE | 2022-06-11 09:04 | Tele-ICU Progress Note ---
Subjective Date Seen by a Provider: Jun 11, 2022 Time Seen by a Provider: 08:58 Subjective/Events-last exam (Tele-ICU Physician , Progress Note ) Service provided via interactive audio and video telecommunications E-CARE system to a patient admitted to ICU bed in [facility]. Patient is seen today due to persistent need of ICU care Available chart/ vitals / labs / Images reviewed Video assessment done using teleICU camera, rest of exam as per RN Is a 66-year-old male with past medical history of hypertension, polysubstance abuse, seizure disorder, stroke, traumatic brain injury and hepatitis C presented to the emergency room with altered mental status. Apparently upon presentation to the emergency room he was incoherent and agitated he is intubated and put on mechanical ventilation for airway protection. Subsequently he is found to be in diabetic ketoacidosis and atrial fibrillation with RVR. He is a sedated. He was moving all 4 limbs but demonstrating signs of distress. He was put on CIWA protocol and given IV insulin now metabolic abnormalities resolved. He is currently on a vent tidal volume of 450/respiratory rate of 22 PEEP of 5 and FiO2 of 21%. Today the sedation was reduced today and tried to do a SBT but he is severely agitated and fighting the vent hence he is put back on sedation as well as put on assist control. At this time I have started on Precedex drip in preparation for weaning fentanyl and propofol to try him on SBT tomorrow. Also he is suspected to have a sepsis and he is being treated with Zosyn and vancomycin. His blood cultures grew gram-positive cocci in clusters presumably Staph aureus. Lumbar puncture was done and so far CSF grew no organisms and the analysis is suggestive of his uncontrolled diabetes mellitus rather than an infectious etiology. 06/11/22 Today he was on precedex and low dose propofol. apprently earlier sbt done and agitated. later his precedex adjusted and and propofol discontinued and the trieed on sbt. he was awake and alert. having TV's 700 range but occassionally as high as 1800. abter atrial of sbt for one 1hr repeat ABG done and showed metabolic acidosis but oxygenation if good. heis given 100 meq of nahco3 iv and 15 minutes later hi is extubated. now he is tolerating well on room air with no distress. I watched him with video for more than hour to make sure he does ok. Impression 1. Severe sepsis due to gram-positive organisms clnically improving 2. Acute hypoxic respiratory failure extubated to day ie 06/11/22 3. Diabetic ketoacidosis improved, off insulin drip 4. Polysubstance abuse but at this time his urine drug screen is negative. Recommendations 1. We will continue IV antibiotics and await for identification and sensitivity of the organism 2. Continue to monitor his glucose levels 3. He is extubate today ie 06/11/22 and tolerating well 4. monitor for any with drwel symptoms 5. DVT prophylaxis and ulcer prophylaxis. 6. swallow study in am, if fails start on ngt feeds. Coordination of care with Primary care and Bedside consultants. I am remotely monitoring this patient from Tele icu station in [place]. I am unable to do the bedside exam, and history/physical and pertinent information is taken from other notes in the computer and bedside staff. Certain portions of this document may have been dictated utilizing voice recognition technology such as [employer]. Inherent to this technology, typographical and grammatical errors may exist. As much as I am diligent to identify and correct to these mistakes, some errors may remain in the document. Critical care time due to gated to this patient today is 45 minutes approximately Review of Systems PE PER RN Sepsis Event Evaluation Height, Weight, BMI Height: 6'2.00" Weight: 259lbs. 0.0oz. 117.285220bc; 33.59 BMI Method:Estimated Focused Exam Lactate Level 06/08/22 09:14: Lactic Acid Level 4.13*H 06/08/22 11:35: Lactic Acid Level 2.28*H 06/08/22 14:10: Lactic Acid Level 1.54 Time of Focused Exam: 10:15 Exam Exam Patient acknowledged, consented, and participated in this virtual visit which was conducted using real time audio/video Vital Signs Date Time Temp Pulse Resp B/P (MAP) Pulse Ox O2 Delivery O2 Flow Rate FiO2 06/11/22 08:00 58 17 89/63 (72) 96 Mechanical Ventilator 21.00 06/11/22 07:37 35.8 06/11/22 07:00 52 21 89/57 (67) 96 Mechanical Ventilator 21.00 06/11/22 07:00 52 3/26/23 06:45 51 22 93 21 06/11/22 06:00 51 21 95/64 (74) 96 Mechanical Ventilator 21.00 06/11/22 05:00 50 21 92/67 (75) 96 Mechanical Ventilator 21.00 06/11/22 04:00 48 22 123/80 (94) 96 Mechanical Ventilator 21.00 06/11/22 04:00 95 Mechanical Ventilator 21.00 06/11/22 03:17 55 22 94 21 06/11/22 03:00 54 19 123/83 (96) 96 Mechanical Ventilator 21.00 06/11/22 02:00 50 21 118/87 (97) 96 Mechanical Ventilator 21.00 06/11/22 01:00 52 17 133/85 (101) 95 Mechanical Ventilator 21.00 06/11/22 01:00 60 06/11/22 00:00 96 Mechanical Ventilator 21.00 06/11/22 00:00 47 22 140/100 (113) 94 Mechanical Ventilator 21.00 06/10/22 23:00 52 22 132/80 (97) 95 Mechanical Ventilator 21.00 06/10/22 22:00 51 21 101/71 (81) 94 Mechanical Ventilator 21.00 06/10/22 21:29 55 22 94 21 06/10/22 21:00 71 19 97/66 (76) 94 Mechanical Ventilator 21.00 06/10/22 20:00 51 22 97/67 (77) 95 Mechanical Ventilator 21.00 06/10/22 19:46 95 Mechanical Ventilator 21.00 06/10/22 19:17 54 91/58 06/10/22 19:00 54 06/10/22 19:00 53 21 93/62 (72) 96 Mechanical Ventilator 21.00 06/10/22 18:12 54 22 96 21 06/10/22 17:57 52 106/66 06/10/22 17:00 52 21 106/66 (80) 95 Mechanical Ventilator 21.00 06/10/22 16:21 56 94/57 06/10/22 16:00 94 Mechanical Ventilator 21.00 06/10/22 16:00 56 22 94/57 (68) 96 Mechanical Ventilator 21.00 06/10/22 15:58 36.5 06/10/22 15:00 61 22 88/71 (77) 94 Mechanical Ventilator 21.00 06/10/22 14:11 61 103/67 06/10/22 14:04 61 22 95 21 06/10/22 14:00 61 20 103/67 (81) 95 Mechanical Ventilator 21.00 06/10/22 13:57 59 99/62 06/10/22 13:27 59 99/62 06/10/22 13:00 58 19 99/66 (77) 95 Mechanical Ventilator 21.00 06/10/22 12:31 59 06/10/22 12:00 94 Mechanical Ventilator 21.00 06/10/22 12:00 58 22 99/62 (73) 95 Mechanical Ventilator 21.00 06/10/22 11:55 36.6 06/10/22 11:00 61 21 100/64 (76) 95 Mechanical Ventilator 21.00 06/10/22 10:31 60 22 94 21 06/10/22 10:11 60 123/69 06/10/22 10:00 60 22 106/73 (87) 94 Mechanical Ventilator 21.00 06/10/22 09:23 60 123/69 06/10/22 09:00 58 19 121/73 (91) 94 Mechanical Ventilator 21.00 I & O 06/11/22 07:00 Intake Total 1840 ml Output Total 1635 ml Balance 205 ml Height & Weight Height: 6'2.00" Weight: 259lbs. 0.0oz. 117.348884fs; 33.59 BMI Method:Estimated General Appearance: Chronically ill, Other (intubated and sedated) HEENT: Other (POOR DENTITION, MULTIPLE CARIOUS TEETH; DRY ORAL MUCOSA; ABRASION/CONTUSION RIGHT YAZIDISM/FOREHEAD) Neck: Normal Inspection, Supple Respiratory: Normal Breath Sounds, No Accessory Muscle Use, No Respiratory Distress Cardiovascular: Regular Rate, Rhythm Capillary Refill: Greater Than 3 Seconds (bilateral hands and feet) Peripheral Pulses: 2+ Dorsalis Pedis (R), 2+ Left Dors-Pedis (L), 2+ Radial Pulses (R), 2+ Radial Pulses (L) Gastrointestinal: normal bowel sounds, soft Extremity: Normal Range of Motion; No Pedal Edema, No Swelling Skin: Warm/Dry; No Rash; Other (R knee abrasion, L 4th toe closed blood blister, L 3rd toe closed blister, scabs on bilateral hands, L tomas scab, R back bruise, R head bruise, R eye blister) Results Lab Laboratory Tests 06/10/22 04:15 06/11/22 04:44 Assessment/Plan Assessment/Plan ABOVE Critical Care: Critically Ill Patient Time spent with patient (mins): 45 MIGUEL HONEYCUTT MD Jun 11, 2022 09:04
[2022-06-11 10:10] VITALS: BP 114/74
[2022-06-11] MEDS: RT-ALBUTEROL HFA 8.5 GM INHALER IH SCH ×2 (10:10→14:38)
[2022-06-11] MEDS: VANCOMYCIN 1500MG/300ML PREMIX IV SCH (10:50)
--- NOTE | 2022-06-11 10:51 | Cardiology Progress Note ---
Subjective Date Seen by Provider: Jun 11, 2022 Time Seen by Provider: 10:48 Subjective/Events-last exam Patient is intubated, awake, doing better today Review of Systems General: Other (Unable to provide review of system) Focused Exam Lactate Level 06/08/22 11:35: Lactic Acid Level 2.28*H 06/08/22 14:10: Lactic Acid Level 1.54 Time of Focused Exam: 10:15 Objective-Cardiology Exam Last Set of Vital Signs Vital Signs 06/11/22 06/11/22 06/11/22 07:37 10:00 10:10 Temp 35.8 Pulse 55 Resp 10 B/P (MAP) 114/74 (88) Pulse Ox 96 O2 Delivery Mechanical Ventilator O2 Flow Rate 21.00 FiO2 21 I&O Intake and Output 06/10/22 23:59 Intake Total 2730 ml Output Total 1135 ml Balance 1595 ml Intake Oral 0 ml IV Total 1750 ml Other 980 ml Output Urine Total 1135 ml General: No Acute Distress, Other (Ventilator dependent) HEENT: Atraumatic Neck: Supple Lungs: Clear to Auscultation Heart: Regular Rate Abdomen: Normal Bowel Sounds Extremities: No Clubbing, No Cyanosis Skin: No Rashes Neuro: Other (Ventilator dependent) Psych/Mental Status: Other (Ventilator dependent) Results Lab Laboratory Tests 06/11/22 04:44 A/P-Cardiology Admission Diagnosis Acute respiratory failure Paroxysmal atrial fibrillation Change in mental status Type II myocardial infarction Assessment/Plan Acute respiratory failure, ventilator dependent. Review of his record showed that he was agitated on arrival to the emergency room, combative Had change in mental status and he was intubated Probably anoxic brain injury. Being weaned off the ventilator today. We will continue with weaning trial Sepsis with septic shock, Blood pressure is better. Continue to monitor closely Managed by medical team 2D echo was done on June 08, 2022 with normal EF 60 to 65%, PA pressure 35 to 40 mmHg Diabetic ketoacidosis, uncontrolled diabetes due to noncompliance. Improving slowly Acute renal failure, better Continue to monitor renal function closely Paroxysmal atrial fibrillation versus multifocal atrial tachycardia Currently in sinus rhythm with frequent PVCs and ventricular bigeminy, Heart rate is more stable at this time. Continue to monitor Mild elevation in troponin, type II myocardial infarction secondary to respiratory failure and hypoxemia and sepsis. History of seizure disorder, questionable seizure activity History of methamphetamine use History of CVA in 2013 with speech impairment History of noncompliance with medications REKHA BUSTOS MD Jun 11, 2022 10:50
[2022-06-11 11:13] LABS: ABG BASE EXCESS -10.8 MMOL/L (-2.5-2.5); ABG OXYGEN SATURATION 97 % (94-100); ABG PCO2 27 MMHG (35-45); ABG PO2 83 MMHG (79-93); ABG TCO2 14.9 MMOL/L (21.0-31.0)
[2022-06-11 11:17] LABS: ABG PH 7.33 (7.37-7.43); INSPIRED O2 21%; PATIENT TEMP 36.3; VENTILATOR YES
[2022-06-11] MEDS ORDERED: SODIUM BICARB 8.4% 50 MEQ/50 ML (ABBOTT) SYR ONE (11:22)
[2022-06-11] MEDS ORDERED: SODIUM BICARB 8.4% 50 MEQ/50 ML (ABBOTT) SYR IV NR (11:30)
[2022-06-11] MEDS: inSUlin ASPART (NovoLOG) 1 UNIT/0.01 ML (CHARGE PER UNIT) SC SCH ×2 (12:09→18:27)
[2022-06-11] MEDS: dilTIAZem DRIP PRE-MIX 125 ML IV SCH (12:32)
[2022-06-11] MEDS: DexMEDEtomidine 250 ML DRIP 250 ML IV SCH ×2 (12:46→23:24)
[2022-06-11] MEDS: NOREPINEPHRINE 8 MG/250 ML 250 ML IV SCH (15:28)
[2022-06-11] MEDS: ceFAZolin INJECTION 1,000 MG in NS (IVPB) 50 ML IV SCH (21:02)
[2022-06-11 21:10] VITALS: BP 118/76
[2022-06-11] MEDS ORDERED: RT-ALBUTEROL HFA 8.5 GM INHALER IH PRN (21:30)
[2022-06-12] MEDS: inSUlin ASPART (NovoLOG) 1 UNIT/0.01 ML (CHARGE PER UNIT) SC SCH ×5 (00:41→23:49)
[2022-06-12] MEDS: D5 1/2 NS 1000 ML IV SOLUTION 1,000 ML IV SCH ×3 (00:45→18:34)
[2022-06-12] MEDS: meTOprolol 5 MG/5 ML (LOPRESSOR) VIAL IV SCH ×6 (04:30→23:51)
[2022-06-12 04:33] LABS: BASOPHILS % (AUTO) 0 % (0-10); EOSINOPHILS # (AUTO) 0.1 10^3/uL (0.0-0.3); EOSINOPHILS % (AUTO) 1 % (0-10); HEMATOCRIT 39 % (40-54); HEMOGLOBIN 13.5 g/dL (13.3-17.7); LYMPHOCYTES # (AUTO) 1.3 10^3/uL (1.0-4.0); LYMPHOCYTES % (AUTO) 13 % (12-44); MEAN CORPUSCULAR HEMOGLOBIN 31 pg (25-34); MEAN CORPUSCULAR HGB CONC 35 g/dL (32-36); MEAN CORPUSCULAR VOLUME 88 fL (80-99); MONOCYTES # (AUTO) 0.8 10^3/uL (0.0-1.0); MONOCYTES % (AUTO) 8 % (0-12); NEUTROPHILS # (AUTO) 7.2 10^3/uL (1.8-7.8); NEUTROPHILS % (AUTO) 77 % (42-75); PLATELET COUNT 189 10^3/uL (130-400); WHITE BLOOD COUNT 9.4 10^3/uL (4.3-11.0)
[2022-06-12 04:47] LABS: ALBUMIN 2.4 GM/DL (3.2-4.5); POTASSIUM 3.8 MMOL/L (3.6-5.0)
[2022-06-12 04:49] LABS: CALCIUM 7.8 MG/DL (8.5-10.1)
[2022-06-12 04:50] LABS: TOTAL PROTEIN 4.4 GM/DL (6.4-8.2)
[2022-06-12 04:52] LABS: BILIRUBIN,TOTAL 0.4 MG/DL (0.1-1.0)
[2022-06-12 04:53] LABS: PHOSPHORUS 2.2 MG/DL (2.3-4.7)
[2022-06-12 04:54] LABS: CREATININE SERUM 1.22 MG/DL (0.60-1.30)
[2022-06-12 04:57] LABS: MAGNESIUM 1.9 MG/DL (1.6-2.4)
[2022-06-12] MEDS: POTASSIUM CL 10MEQ/50ML IVPB 50 ML IV SCH ×3 (05:01→08:25)
[2022-06-12] MEDS: MAGNESIUM 1 GM/100 ML IVPB 100 ML IV SCH ×3 (05:01→08:25)
[2022-06-12] MEDS: KCL 20 MEQ TAB (K-DUR) PO SCH (05:02)
--- NOTE | 2022-06-12 05:23 | Progress Note - Hospitalist ---
Subjective HPI/CC On Admission Date Seen by Provider: Jun 12, 2022 Time Seen by Provider: 09:30 CC: Respiratory failure HPI: This is a 66yoWM clinic patient CHC who presented to the ER with AMS and fever with new onset AF RVR with seizures and MEGAN with DKA. No history obtainable. No source of AMS or fever noted on w/u although abx initiated empirically. LP performed revealing minimal abnormalities but will maintain men ingitis coverage until CX returns. Poor prognosis given the multiple critical illness components. Focused Exam Time of Focused Exam: 10:15 Objective Exam Vital Signs Vital Signs Date Time Temp Pulse Resp B/P (MAP) Pulse Ox O2 Delivery O2 Flow Rate FiO2 06/12/22 09:00 66 24 134/94 (107) 96 Room Air 06/11/22 21:10 36.0 21 06/11/22 11:00 21.00 Capillary Refill : Greater Than 3 Seconds Results/Procedures Lab Laboratory Tests 06/12/22 04:25 Patient resulted labs reviewed. Assessment/Plan Assessment and Plan Assess & Plan/Chief Complaint Assessment: AMS Acute respiratory failure AF RVR Seizure upon admit DKA MEGAN Plan: Vent Insulin drip dc IV abx EICU appreciated along with Cardiology s/p LP results reviewed Lovenox Critical Care Critically Ill Patient MCFARLANELUANN LOWRY DO Jun 12, 2022 05:23
[2022-06-12 05:40] LABS: ABG BASE EXCESS -4.8 MMOL/L (-2.5-2.5); ABG OXYGEN SATURATION 63 % (94-100); ABG PCO2 43 MMHG (35-45)
[2022-06-12 05:48] LABS: ABG PO2 36 MMHG (79-93); ALLENS TEST YES-POS; INSPIRED O2 ROOM AIR; PATIENT TEMP 36.4; VENTILATOR NO
[2022-06-12] MEDS: NOREPINEPHRINE 8 MG/250 ML 250 ML IV SCH ×2 (06:24→20:25)
[2022-06-12] MEDS: ceFAZolin INJECTION 1,000 MG in NS (IVPB) 50 ML IV SCH ×3 (06:24→21:35)
[2022-06-12] MEDS: ENOXAPARIN 100 MG/1 ML (LOVENOX) SYR SC SCH (06:25)
[2022-06-12 07:10] LABS: ABG BASE EXCESS -6.1 MMOL/L (-2.5-2.5); ABG OXYGEN SATURATION 98 % (94-100); ABG PCO2 30 MMHG (35-45); ABG PH 7.39 (7.37-7.43); ABG PO2 74 MMHG (79-93); ALLENS TEST YES-POS; INSPIRED O2 RA; VENTILATOR NO
[2022-06-12 07:11] LABS: PATIENT TEMP 36.6
--- NOTE | 2022-06-12 07:53 | Diagnostic Imaging Report ---
INDICATION: Intubation. Comparison is made with prior exam of 06/11/2022. FINDINGS: The heart size is normal. The lungs are clear. There is no pleural effusion or pneumothorax. The mediastinum is unremarkable. There is a right intrajugular central venous catheter which has its tip in superior vena cava. The endotracheal tube and nasogastric tube have been removed. IMPRESSION: Stable appearance of the chest following extubation. Dictated by: Dictated on workstation # [id number]
[2022-06-12] MEDS: PANTOPRAZOLE 40 MG (PROTONIX) VIAL IV SCH (08:25)
[2022-06-12] MEDS: SENNOSIDES 8.6 MG (SENOKOT) TAB PO SCH ×2 (08:29→20:58)
[2022-06-12] MEDS: DOCUSATE SODIUM 100 MG (COLACE) CAP PO SCH ×2 (08:29→20:58)
--- NOTE | 2022-06-12 08:40 | Tele-ICU Progress Note ---
Subjective Date Seen by a Provider: Jun 12, 2022 Time Seen by a Provider: 08:33 Subjective/Events-last exam (Tele-ICU Physician , Progress Note ) Service provided via interactive audio and video telecommunications E-CARE system to a patient admitted to ICU bed in [facility]. Patient is seen today due to persistent need of ICU care Available chart/ vitals / labs / Images reviewed Video assessment done using teleICU camera, rest of exam as per RN 66 yo M admitted with AMS found to have DKA, off insulin drip, on sliding scale, also a fib with RVR, started on IV Cardizem, now off, now sinus bradycardia 50- 70 new onset seizures, no further Sz was intubated, now extubated, on RA, not in distress Recent LP, cultures are negative, on IV Vanco, Cefazolin, Moer agitated needs IV Precedex @ 1.0 Sepsis Event Evaluation Height, Weight, BMI Height: 6'2.00" Weight: 259lbs. 0.0oz. [id number]; 33.50 BMI Method:Estimated Focused Exam Time of Focused Exam: 10:15 Exam Exam Patient acknowledged, consented, and participated in this virtual visit which was conducted using real time audio/video Vital Signs Date Time Temp Pulse Resp B/P (MAP) Pulse Ox O2 Delivery O2 Flow Rate FiO2 06/12/22 06:00 57 18 145/79 (101) 90 Room Air 06/12/22 05:00 55 24 141/86 (104) 99 Room Air 06/12/22 04:00 65 13 118/77 (91) 95 Room Air 06/12/22 04:00 98 Room Air 06/12/22 03:15 53 16 129/78 (95) 89 Room Air 06/12/22 03:00 56 13 114/104 (107) 100 Room Air 06/12/22 02:00 54 22 141/85 (113) Room Air 06/12/22 01:45 52 15 135/72 (95) Room Air 06/12/22 01:30 55 20 129/93 (103) Room Air 06/12/22 01:15 56 24 147/80 (91) Room Air 06/12/22 01:00 55 06/12/22 01:00 55 24 112/70 (77) Room Air 3/27/23 00:00 56 20 94/71 (79) Room Air 06/11/22 23:59 96 Room Air 06/11/22 23:24 53 118/73 06/11/22 23:00 53 27 113/74 (87) Room Air 06/11/22 22:00 50 17 121/75 (90) 94 Room Air 06/11/22 21:10 36.0 53 95 21 06/11/22 21:00 57 19 123/87 (102) 94 Room Air 06/11/22 20:00 97 Room Air 06/11/22 20:00 54 23 123/78 (93) 95 Room Air 06/11/22 20:00 36.1 06/11/22 19:54 53 06/11/22 19:00 50 20 108/68 (89) 94 Room Air 06/11/22 19:00 50 06/11/22 18:00 51 16 120/80 (93) 94 Room Air 06/11/22 17:17 53 102/74 06/11/22 17:00 53 18 124/77 (94) 95 Room Air 06/11/22 16:50 53 124/77 06/11/22 16:00 96 Room Air 06/11/22 16:00 53 18 112/80 (91) 96 Room Air 06/11/22 15:34 36.5 06/11/22 15:28 53 118/76 06/11/22 15:00 54 17 114/75 (87) 97 Room Air 06/11/22 14:38 95 Room Air 06/11/22 14:00 53 17 118/76 (91) 95 Room Air 06/11/22 13:00 53 16 131/82 (100) 93 Room Air 06/11/22 12:46 54 117/72 06/11/22 12:43 54 06/11/22 12:32 53 117/72 06/11/22 12:24 36.0 06/11/22 12:00 53 18 117/72 (89) 92 Room Air 06/11/22 12:00 95 Room Air 06/11/22 11:30 Room Air 06/11/22 11:00 54 13 136/78 (97) 96 Mechanical Ventilator 21.00 06/11/22 10:10 55 10 96 21 06/11/22 10:00 51 22 114/74 (88) 95 Mechanical Ventilator 21.00 06/11/22 09:00 51 19 97/62 (73) 95 Mechanical Ventilator 21.00 I & O 06/12/22 07:00 Intake Total 445 ml Output Total 3000 ml Balance -2555 ml Height & Weight Height: 6'2.00" Weight: 259lbs. 0.0oz. [id number]; 33.50 BMI Method:Estimated General Appearance: No Apparent Distress, WD/WN, Chronically ill, Other (intubated and sedated) HEENT: Other (POOR DENTITION, MULTIPLE CARIOUS TEETH; DRY ORAL MUCOSA; ABRASION/CONTUSION RIGHT JUDAISM/FOREHEAD) Neck: Normal Inspection, Supple Respiratory: No Accessory Muscle Use, No Respiratory Distress, Decreased Breath Sounds Cardiovascular: Regular Rate, Rhythm Capillary Refill: Greater Than 3 Seconds (bilateral hands and feet) Peripheral Pulses: 2+ Dorsalis Pedis (R), 2+ Left Dors-Pedis (L), 2+ Radial Pulses (R), 2+ Radial Pulses (L) Gastrointestinal: normal bowel sounds, soft Extremity: Normal Range of Motion; No Pedal Edema, No Swelling Skin: Warm/Dry; No Rash; Other (R knee abrasion, L 4th toe closed blood blister, L 3rd toe closed blister, scabs on bilateral hands, L tomas scab, R back bruise, R head bruise, R eye blister) Results Lab Laboratory Tests 06/11/22 04:44 06/12/22 04:25 Assessment/Plan Assessment/Plan resolving DKA, A fib resolved, , On Kepra for Sz, no further Sz, on IV Precedex being tapered but still requires it for anxiety Critical Care: Critically Ill Patient Time spent with patient (mins): 25 CHRISTOPHER SANCHEZ MD Jun 12, 2022 08:40
[2022-06-12] MEDS: ASPIRIN 81 MG CHEW (CHILDREN'S ASA) PO SCH (09:18)
[2022-06-12] MEDS ORDERED: DexMEDEtomidine 250 ML DRIP 250 ML IV SCH (09:30)
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
--- NOTE | 2022-06-12 09:41 | Physical Therapy Evaluation ---
PT Evaluation-General Medical Diagnosis Admission Date Jun 08, 2022 at 12:36 Medical Diagnosis: A-fib with RVR/DKA/seizure Onset Date: Jun 08, 2022 Therapy Diagnosis Therapy Diagnosis: generalized weakness/debility Height/Weight Height (Feet): 6 Height (Inches): 2.00 Weight (Pounds): 259 Weight (Ounces): 0.0 Precautions Precautions/Isolations: Seizure, Fall Prevention, Standard Precautions Referral Physician: Kylah Reason for Referral: Evaluation/Treatment Medical History Pertinent Medical History: CVA, DM, HTN Additional Medical History seizure disorder Current History EMS secondary to found AMS Reviewed History: Yes Social History Home: Single Level Current Living Status: Other Family Prior Prior Level of Function SCALE: Activities may be completed with or without assistive devices. 2-Jcesoecult-exuxvgv completes the activity by him/herself with no assistance from a helper. 5-Set-up or Clean-up Assistance-helper sets up or cleans up; patient completes activity. [place] assists only prior to or following the activity. 4-Supervision or Touching Assistance-helper provides verbal cues and/or touching/steadying and/or contact guard assistance as patient completes activity. Assistance may be provided throughout the activity or intermittently. 3-Partial/Moderate Assistance-helper does LESS THAN HALF the effort. [place] lifts, holds or supports trunk or limbs, but provides less than half the effort. 2-Substantial/Maximal Assistance-helper does MORE THAN HALF the effort. [place] lifts or holds trunk or limbs and provides more than half the effort. 7-Pplokwkwt-kbenyv does ALL the effort. Patient does none of the effort to complete the activity. Or, the assistance of 2 or more helpers is required for the patient to complete the activity. If activity was not attempted, code reason: 7-Patient Refused. 9-Not Applicable-not attempted and the patient did not perform the activity before the current illness, exacerbation or injury. 10-Not Attempted due to Environmental Limitations-(lack of equipment, weather restraints, etc.). 88-Not Attempted due to Medical Conditions or Safety Concerns. Bed Mobility: 6 Transfers (B,C,W/C): 6 Gait: 6 Stairs: 6 Indoor Mobility (Ambulation): Independent Stairs: Independent Prior Devices Use: None PT Evaluation-Current Subjective Patient agrees to PT. Objective Patient Orientation: Person Attachments: Lee Catheter, IV ROM/Strength ROM Lower Extremities bilateral LE WFL Strength Lower Extremities 3/5 grossly bilateral LE all planes Integumentary/Posture Bladder Incontinence: Lee Cath Posture slightly kyphotic Neuromuscular (Tone, Coordination, Reflexes) diminished due to weakness Sensory Vision: Functional Hearing: Functional Transfers Roll Left to Right (QC): 6 Sit to Lying (QC): 6 Lying to Sitting/Side of Bed(Q: 6 Sit to Stand (QC): 3 Gait Mode of Locomotion: Walk Anticipated Mode of Locomotion: Walk Walk 10 feet (QC): 3 Walk 50 ft with 2 Turns(QC): 88 Walk 150 ft (QC): 88 Distance: 10 sidesteps Gait Assistive Device: FWW Comments/Gait Description slightly unsteady with PT mod assist Balance Sitting Static: Fair Sitting Dynamic: Fair Standing Static: Fair Standing Dynamic: Fair Assessment/Needs Patient will benefit from skilled PT to address functional strength and mobility to improve current LOF to safely return to home at maximum LOF. Rehab Potential: Fair PT Retort Condenser Attendant Goals Nursing Home Goals PT Nursing Home Goals Time Frame: Jul 01, 2022 Roll Left & Right (QC): 6 Sit to Lying (QC): 6 Lying-Sitting on Side/Bed(QC): 6 Sit to Stand (QC): 6 Chair/Vmt-vr-Reevs Xfer(QC): 6 Toilet Transfer (QC): 6 Walk 10 feet (QC): 6 Walk 50ft with 2 Turns (QC): 6 Walk 150 ft (QC): 6 PT Plan Problem List Problem List: Activity Tolerance, Functional Strength, Safety, Balance, Gait, Transfer Treatment/Plan Treatment Plan: Continue Plan of Care Treatment Plan: Education, Functional Activity Paula, Functional Strength, Gait, Safety, Therapeutic Exercise, Transfers Treatment Duration: Jul 01, 2022 Frequency: 6 times per week Estimated Hrs Per Day: .25 hour per day Patient and/or Family Agrees t: Yes Time Time In: 825 Time Out: 842 DATE: Jun 12, 2022 Total Billed Treatment Time: 17 Total Billed Treatment 1 visit EVModC 17 min LORIE QUEVEDO PT Jun 12, 2022 09:41
[2022-06-12] MEDS: VANCOMYCIN 1500MG/300ML PREMIX IV SCH (09:49)
[2022-06-12] MEDS: fentaNYL INJ 100 MCG/2 ML AMP IVP PRN (09:50)
--- NOTE | 2022-06-12 11:31 | Progress Note - Hospitalist ---
"RITU LINK 06/12/22 1131: Subjective HPI/CC On Admission Date Seen by Provider: Jun 12, 2022 Time Seen by Provider: 08:50 CC: Respiratory failure HPI: This is a 66yoWM clinic patient CHC who presented to the ER with AMS and fever with new onset AF RVR with seizures and MEGAN with DKA. No history obtainable. No source of AMS or fever noted on w/u although abx initiated empirically. LP performed revealing minimal abnormalities but will maintain meningitis coverage until CX returns. Poor prognosis given the multiple critical illness components. Subjective/Events-last exam Patient was awake lying in bed when seen this morning. He was fidgeting in bed frequently and was oriented to place but not time or why he is here. Patient was extubated on 06/11 and has tolerated RA since. PT had been in with the patient prior to me seeing him and it was reported they were able to get him up and standing. His leukocytosis has improved from 15.2 yesterday to 9.4 today. CSF fluid from 06/08 LP had no bacterial growth, but viral HSV panel results are still pending at this time. His ABG today was 7.39 | 30 | 74 | 18 on RA. Pt has a cee in place with clear yellow urine in his cee bag. There was report that overnight pt. may have been aspirating on small amts. of fluid and pt. has been NPO since pending swallow study. Pt. denies headache, CP, palpitations, SB, cough, abd pain N/V/D, numbness/weakness of extremities. Review of Systems General: No Chills HEENT: No Head Aches Pulmonary: No Dyspnea, No Cough Cardiovascular: No: Chest Pain, Palpitations Gastrointestinal: No: Nausea, Vomiting, Abdominal Pain Neurological: No: Weakness, Numbness Focused Exam Time of Focused Exam: 10:15 Objective Exam Vital Signs Vital Signs Date Time Temp Pulse Resp B/P (MAP) Pulse Ox O2 Delivery O2 Flow Rate FiO2 06/12/22 11:16 98 Room Air 0.00 06/12/22 10:00 73 12 135/70 (91) 06/11/22 21:10 36.0 21 Capillary Refill : Greater Than 3 Seconds Results/Procedures Lab Laboratory Tests 06/12/22 04:25 Patient resulted labs reviewed. Imaging: Reviewed Imaging Films, Reviewed Imaging Report Radiology NAME: EDDIE CARRANZA [facility] REC#: [id number] PT STATUS: ADM IN : 1955 PHYSICIAN: THU MCFARLANE DO ADMIT DATE: 06/08/22/ICU Signed Date of Exam:06/12/22 CHEST 1 VIEW, AP/PA ONLY INDICATION: Intubation. Comparison is made with prior exam of 06/11/2022. FINDINGS: The heart size is normal. The lungs are clear. There is no pleural effusion or pneumothorax. The mediastinum is unremarkable. There is a right intrajugular central venous catheter which has its tip in superior vena cava. The endotracheal tube and nasogastric tube have been removed. IMPRESSION: Stable appearance of the chest following extubation. Dictated by: Dictated on workstation # [id number] Dict: 06/12/22 0741 Trans: 06/12/22 0845 HAROON [id number] Interpreted by: NURIS THORNTON MD Electronically signed by: NURIS THORNTON MD 06/12/22 0845 Assessment/Plan Assessment and Plan Assess & Plan/Chief Complaint AMS secondary to Sepsis -06/08 BC positive for Staph hominis. Currently receiving course of vanc and cefazolin. S/P cefepime and ampicillin course. -06/12 CXR unconcerning for PNA. Bacterial meningitis unlikely at this point in time. HSV panel still pending. -Overall condition improving. Continue abx and IVF. Acute RF -Extubated 06/11. Tolerating RA -Continue nebulizer therapy amd monitor. AF w/ RVR -Pt has converted to sinus rhythm with what seems to be frequent PVC's. Car diology is following and recommendations appreciated. -Asa 81mg PO QD Seizure -Pt. had new onset seizure upon initial arrival. Levetiracetam 500mg IV BID. DKA -Resolved. Contiue Insulin Sliding scale MEGAN -Improved from high of 2.16 to 1.22. Appears to be at baseline from previous hospital visits. Hx Polysubstance abuse including methamphetamine -Monitor for withdrawal symptoms. DVT proph: lovenox Diet: Pending swallow study (06/12) THU MCFARLANE DO 06/13/22 0540: Objective Exam General Appearance: WD/WN, Chronically ill, Mild Distress Respiratory: Lungs Clear, Normal Breath Sounds Neurologic/Psychiatric: Alert, Disoriented Supervisory-Addendum Brief Verification & Attestation Participated in pt care: history, MDM, physical Personally performed: exam, history, MDM, supervision of care Care discussed with: Medical Student Procedures: n/a Results interpretation: Verified all documentation Verification and Attestation of Medical Student E/M Service A medical student performed and documented this service in my presence. I reviewed and verified all information documented by the medical student and made modifications to such information, when appropriate. I personally performed the physical exam and medical decision making. Thu Mcfarlane, Jun 13, 2022,05:40 RITU LINK Jun 12, 2022 11:31 THU MCFARLANE DO Jun 13, 2022 05:40"
[2022-06-12] MEDS: dilTIAZem DRIP PRE-MIX 125 ML IV SCH (11:42)
[2022-06-12] MEDS: fentaNYL DRIP PRE-MIX 250 ML IV SCH (11:42)
--- NOTE | 2022-06-12 11:47 | ST Dysphagia Evaluation ---
Speech Evaluation-General Medical Diagnosis AMS, Acute Resp Failure, DKA Onset Date: Jun 08, 2022 Therapy Diagnosis Therapy Diagnosis: Mild Oropharyngeal Dysphagia Precautions Precautions: Fall, Pressure Ulcer, Aspiration Precautions/Isolations: Aspiration, Fall Prevention, Standard Precautions, Pressure Ulcer Referral Referring Physician: Dr. Montero Reason for Referral: Evaluation/Treatment Medical History Pertinent Medical History: Atrial Fib, CVA, DM, HTN, Smoking Reviewed History: Yes Social History Current Living Status: Other Family Speech PLF/Current-Dysphagia Prior Level of Function The patient (or family member present) were unable to provide the clinician with prior level of P.O. intake. Subjective The patient was lying in bed, awake and alert, with one leg out of the side. With verbal prompting, the patient was able to re-position himself upright in bed for safe swallowing. The patient has a family member present at bedside. The patient was agreeable to participation in the evaluation stating, "Water, please." The patient is currently on room air and displays appropriateness alertness. The patient's confusion results in the necessity for verbal redirection to task throughout the evaluation. Extensive oral care was provided by the patient prior to oral trials. Cognitive Status Patient Orientation: Confused, Mumbles Oral Motor Skills Dentition: Natural (Sparse, Poor Condition.) Ability to Follow Directions: Fair Oral Expression Ability: Moderate Impairment Voice Voice Phonatory-Based Quality: Glottal Wei Voice Pitch: Normal Voice Loudness: Normal Face Facial Symmetry: Symmetrical Dysphagia Evaluation Consistencies Presented: Thin Liquid (Via ice chip, teaspoon, and straw.), Pureed The patient politely deferred solid consistencies on this date. Initially, the patient display prolonged or slowed manipulation of the ice chip in the oral cavity. Suspected difficulty with mastication due to poor condition of dentition. Laryngeal elevation was present to palpation. A suspected delay in the pharyngeal swallow onset was noted. The patient was provided ice chips (x3), teaspoons of water (x5), straw drinks of water (single and consecutive), and two ounces of applesauce. The patient did not display overt s/s of suspected aspiration with any trial provided. When allowed independent drinking, the patient would consume four consecutive drinks without s/s of suspected aspiration. The patient does appear fatigued throughout the evaluation and rest breaks were provided. The patient politely deferred solid consistencies at this time. Dietary Recommendations: Pureed Liquid Recommendations: Thin Recommendations: - PU4 with thin liquids, as tolerated. - Fully upright and alert for P.O. intake. - Small, single bites and sips. - Remain upright for 30 minutes following P.O. intake. - Crush medication and place in puree for administration. - Monitor for s/s of suspected aspiration with P.O. intake. If demonstrated, contact speech pathology. The results and recommendations were provided to the patient, the patient's family member, and the RN immediate following completion of the evaluation. Dysphagia Evaluation Summary The patient displayed mild oropharyngeal dysphagia characterized by decreased oral coordination and a suspected delay in the pharyngeal swallow onset. The patient's current level of confusion does increase aspiration risk, therefore, the patient should be alert and appropriate prior to P.O. intake. Speech Short Term Goals Short Term Goals Short Term Goals 1. The patient will display safe swallowing precautions with 80% accuracy with moderate clinician, staff, and family member verbal prompting. Time Frame-STG: Three Days. Speech Gynecologist Goals Senior Care Goals 1. The patient will tolerate the least restrictive diet consistency without s/s of suspected aspiration. Time Frame: Five Days. Speech-Plan Treatment Plan Speech Therapy Treatment Plan: Continue Plan of Care Treatment Duration: Jun 16, 2022 Frequency: 4 times per week Estimated Hrs Per Day: .25 hour per day Rehab Potential: Fair Pt/Family Agrees to Plan: Yes Safety Risks/Education Teaching Recipient: Patient, Family Teaching Methods: Discussion Response to Teaching: Reinforcement Needed Education Topics Provided: Results, Recommendations, Plan of Care, Safe Swallowing Strategies Time Speech Therapy Time In: 11:15 Speech Therapy Time Out: 11:42 DATE: Jun 12, 2022 Total Billed Time: 27 Billed Treatment Time 1, JULIA BANDA [facility] ST Jun 12, 2022 11:47
[2022-06-12] MEDS: DexMEDEtomidine 250 ML DRIP 250 ML IV SCH (13:42)
[2022-06-12] MEDS: ENOXAPARIN 120 MG/0.8 ML (LOVENOX) SQ SCH (18:33)
[2022-06-12] MEDS: LORazepam INJ 2 MG/ML (ATIVAN) VIAL IVP PRN (21:53)
[2022-06-13] MEDS: DexMEDEtomidine 250 ML DRIP 250 ML IV SCH (00:39)
[2022-06-13] MEDS: D5 1/2 NS 1000 ML IV SOLUTION 1,000 ML IV SCH (01:15)
[2022-06-13] MEDS: fentaNYL INJ 100 MCG/2 ML AMP IVP PRN ×5 (03:45→21:55)
[2022-06-13] MEDS: meTOprolol 5 MG/5 ML (LOPRESSOR) VIAL IV SCH (03:49)
[2022-06-13 05:25] LABS: BASOPHILS % (AUTO) 0 % (0-10); EOSINOPHILS # (AUTO) 0.2 10^3/uL (0.0-0.3); EOSINOPHILS % (AUTO) 3 % (0-10); HEMATOCRIT 36 % (40-54); HEMOGLOBIN 12.7 g/dL (13.3-17.7); LYMPHOCYTES # (AUTO) 1.3 10^3/uL (1.0-4.0); LYMPHOCYTES % (AUTO) 15 % (12-44); MEAN CORPUSCULAR HEMOGLOBIN 30 pg (25-34); MEAN CORPUSCULAR HGB CONC 35 g/dL (32-36); MEAN CORPUSCULAR VOLUME 86 fL (80-99); MEAN PLATELET VOLUME 10.9 fL (9.0-12.2); MONOCYTES # (AUTO) 0.7 10^3/uL (0.0-1.0); MONOCYTES % (AUTO) 8 % (0-12); NEUTROPHILS # (AUTO) 6.4 10^3/uL (1.8-7.8); NEUTROPHILS % (AUTO) 74 % (42-75); PLATELET COUNT 193 10^3/uL (130-400); WHITE BLOOD COUNT 8.7 10^3/uL (4.3-11.0)
[2022-06-13] MEDS: ceFAZolin INJECTION 1,000 MG in NS (IVPB) 50 ML IV SCH ×3 (05:41→21:54)
[2022-06-13] MEDS: inSUlin ASPART (NovoLOG) 1 UNIT/0.01 ML (CHARGE PER UNIT) SC SCH ×4 (05:53→21:54)
[2022-06-13 05:57] LABS: ALBUMIN 2.5 GM/DL (3.2-4.5); BILIRUBIN,TOTAL 0.6 MG/DL (0.1-1.0); CALCIUM 7.9 MG/DL (8.5-10.1); CREATININE SERUM 0.83 MG/DL (0.60-1.30); MAGNESIUM 1.7 MG/DL (1.6-2.4); PHOSPHORUS 2.4 MG/DL (2.3-4.7); POTASSIUM 3.3 MMOL/L (3.6-5.0); TOTAL PROTEIN 4.6 GM/DL (6.4-8.2)
[2022-06-13] MEDS: POTASSIUM CL 10MEQ/50ML IVPB 50 ML IV SCH ×8 (06:13→14:12)
[2022-06-13] MEDS: KCL 20 MEQ TAB (K-DUR) PO SCH (06:14)
[2022-06-13] MEDS: MAGNESIUM 1 GM/100 ML IVPB 100 ML IV SCH ×4 (06:14→08:45)
[2022-06-13] MEDS: ENOXAPARIN 120 MG/0.8 ML (LOVENOX) SQ SCH ×2 (06:15→18:14)
[2022-06-13 06:28] LABS: ABG BASE EXCESS -1.5 MMOL/L (-2.5-2.5); ABG OXYGEN SATURATION 97 % (94-100); ABG PCO2 31 MMHG (35-45); ABG PH 7.46 (7.37-7.43); ABG PO2 70 MMHG (79-93)
[2022-06-13 06:31] LABS: ALLENS TEST YES-POS; INSPIRED O2 ROOM AIR; PATIENT TEMP 36.2; VENTILATOR NO
--- NOTE | 2022-06-13 07:52 | Cardiology Progress Note ---
Subjective Date Seen by Provider: Jun 13, 2022 Time Seen by Provider: 07:50 Subjective/Events-last exam Patient was seen at bedside laying down comfortably, no new complain Review of Systems General: No Chills, No Night Sweats; Fatigue, Malaise; No Appetite, No Other HEENT: No Head Aches, No Visual Changes, No Eye Pain, No Ear Pain, No Dysphasia, No Sinus Congestion, No Post Nasal Drip, No Sore Throat, No Other Pulmonary: No Dyspnea, No Cough, No Pleuritic Chest Pain, No Other Cardiovascular: No: Chest Pain, Palpitations, Orthopnea, Paroxysmal Noc. Dyspnea, Edema, Lt Headedness, Other Focused Exam Time of Focused Exam: 10:15 Objective-Cardiology Exam Last Set of Vital Signs Vital Signs 06/11/22 06/12/22 06/13/22 21:10 11:16 07:00 Pulse 71 Resp 9 B/P (MAP) 129/75 (93) Pulse Ox 94 O2 Delivery Room Air O2 Flow Rate 0.00 FiO2 21 I&O Intake and Output 06/12/22 23:59 Intake Total 2915 ml Output Total 5865 ml Balance -2950 ml Intake Oral 700 ml IV Total 2215 ml Output Urine Total 5865 ml General: Alert, Cooperative, No Acute Distress HEENT: Atraumatic Neck: Supple Lungs: Clear to Auscultation Heart: Regular Rate, Normal S1, Normal S2 Abdomen: Normal Bowel Sounds Extremities: No Clubbing, No Cyanosis Skin: No Rashes Neuro: Normal Speech Psych/Mental Status: Mood NL Results Lab Laboratory Tests 06/13/22 05:15 A/P-Cardiology Admission Diagnosis Acute respiratory failure Paroxysmal atrial fibrillation Change in mental status Type II myocardial infarction Assessment/Plan Status post acute respiratory failure, extubated and doing better Laying comfortably in bed, probably had anoxic brain injury but overall improving slowly Managed by medical team Sepsis with septic shock, Blood pressure is better. Continue to monitor closely Managed by medical team 2D echo was done on June 08, 2022 with normal EF 60 to 65%, PA pressure 35 to 40 mmHg Diabetic ketoacidosis, uncontrolled diabetes due to noncompliance. Improving slowly Acute renal failure, better Continue to monitor renal function closely Paroxysmal atrial fibrillation versus multifocal atrial tachycardia Currently in sinus rhythm with frequent PVCs and ventricular bigeminy, Heart rate is more stable at this time. I will restart beta-blockers and evaluate tolerance and response Mild elevation in troponin, type II myocardial infarction secondary to respiratory failure and hypoxemia and sepsis. 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
--- NOTE | 2022-06-13 08:42 | Progress Note ---
Subjective Subjective/Events-last exam Pt denies concerns, when asked how he feels, says "I don't know". He moaned when rollling, and his brother notes he has complained of shoulder pain. Focused Exam Time of Focused Exam: 10:15 Objective Exam Last Set of Vital Signs Vital Signs Date Time Temp Pulse Resp B/P (MAP) Pulse Ox O2 Delivery O2 Flow Rate FiO2 06/13/22 08:00 72 11 174/107 (129) 96 Nasal Cannula 3.00 06/13/22 03:45 36.2 06/11/22 21:10 21 Capillary Refill : Greater Than 3 Seconds I&O Intake and Output 06/13/22 00:00 Intake Total 2915 ml Output Total 5865 ml Balance -2950 ml Intake Oral 700 ml IV Total 2215 ml Output Urine Total 5865 ml General: Alert, No Acute Distress Lungs: Clear to Auscultation, Normal Air Movement Heart: Regular Rate Abdomen: Normal Bowel Sounds, Soft Extremities: No Edema Neuro: Other (oriented to self and location, but not date or reason for admission) Results/Procedures Lab Laboratory Tests 06/12/22 12:29: Glucometer 249H 06/12/22 19:19: Glucometer 247H 06/12/22 20:50: Glucometer 267H 06/12/22 23:47: Glucometer 213H 06/13/22 05:15: White Blood Count 8.7, Red Blood Count 4.20L, Hemoglobin 12.7L, Hematocrit 36L, Mean Corpuscular Volume 86, Mean Corpuscular Hemoglobin 30, Mean Corpuscular Hemoglobin Concent 35, Red Cell Distribution Width 12.6, Platelet Count 193, Mean Platelet Volume 10.9, Immature Granulocyte % (Auto) 1, Neutrophils (%) (Auto) 74, Lymphocytes (%) (Auto) 15, Monocytes (%) (Auto) 8, Eosinophils (%) (Auto) 3, Basophils (%) (Auto) 0, Neutrophils # (Auto) 6.4, Lymphocytes # (Auto) 1.3, Monocytes # (Auto) 0.7, Eosinophils # (Auto) 0.2, Basophils # (Auto) 0.0, Immature Granulocyte # (Auto) 0.0, Sodium Level 141, Potassium Level 3.3L, Chloride Level 112H, Carbon Dioxide Level 20L, Anion Gap 9, Blood Urea Nitrogen 16, Creatinine 0.83, Estimat Glomerular Filtration Rate 98, BUN/Creatinine Ratio 19, Glucose Level 143H, Calcium Level 7.9L, Corrected Calcium 9.1, Phosphorus Level 2.4, Magnesium Level 1.7, Total Bilirubin 0.6, Aspartate Amino Transf (AST/SGOT) 45H, Alanine Aminotransferase (ALT/SGPT) 37, Alkaline Phosphatase 75, Total Protein 4.6L, Albumin 2.5L 06/13/22 05:26: Glucometer 134H 06/13/22 06:25: Blood Gas Puncture Site R RAD, Blood Gas Patient Temperature 36.2, Arterial Blood pH 7.46H, Arterial Blood Partial Pressure CO2 31L, Arterial Blood Partial Pressure O2 70L, Arterial Blood HCO3 22L, Arterial Blood Total CO2 23.0, Arterial Blood Oxygen Saturation 97, Arterial Blood Base Excess -1.5, [place] Test YES-POS, Blood Gas Ventilator Setting NO, Blood Gas Inspired Oxygen ROOM AIR Microbiology 06/09/22 Blood Culture - Preliminary, Resulted No growth 06/08/22 Gram Stain - Final, Complete 06/08/22 CSF Culture - Final, Complete No growth 06/08/22 MRSA Screen - Final, Complete MRSA not isolated 06/08/22 Urine Culture - Final, Complete NO GROWTH Assessment/Plan Assessment/Plan Reason for Inpatient Admission: Status post acute respiratory failure, extubated and doing better Sepsis with septic shock, 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 Blood culture with staph hominis. Sputum culture with normal bj. CSF cx negative. Repeat bl ood cultures 06/09 no growth to date. (2) Altered mental status Status: Acute Assessment & Plan: Altered mental status on admission after unknown period of altered state, CT head on admit with no acute intracranial hemorrhage or large vascular territory bunch-white loss. No intracranial mass, midline shift, or hydrocephalus. Previously demonstrated encephalomalacia in right frontal lobe stable. Intubated in ER. 06/13- alert and oriented to self and location, but unable to answer other questions with much consistency. Brother at bedside and notes he was having some altered mental status before admit, but is worse than he was. Uncertain at this time ultimate prognosis, given septic shock, DKA and unknown ill time prior to admit, ventilator course inpatient, but brother states he thinks this may be his new baseline as he is similar to yesterday. Would not rule out possibility of continued improvement. Continue to treat underlying conditions and monitor closely. Qualifiers: Qualified Codes: R41.82 - Altered mental status, unspecified (3) DKA (diabetic ketoacidosis) Status: Resolved Assessment & Plan: Glucose over 600 on admit and positive beta hydroxybutyrate, had not been taking home medications. Now resolved. Diabetic diet, sliding scale insulin. Qualifiers: Qualified Codes: E13.10 - Other specified diabetes mellitus with ketoacidosis without coma (4) Acute kidney failure Status: Resolved Assessment & Plan: Suspect secondary to combination of septic shock and DKA. Resolved with treatment of underlying conditions. (5) Atrial fibrillation with rapid ventricular response Status: Acute Assessment & Plan: Cardiology consulted, appreciate recommendations. Paroxysmal a fib vs multifocal atrial tachycardia, rate normal today. 2D echo was done on June 08, 2022 with normal EF 60 to 65%, PA pressure 35 to 40 (6) Type 2 NJ (myocardial infarction) Status: Acute Assessment & Plan: Cardiology consulted, appreciate recommendations, suspect type II NJ related to respiratory failure and septic shock. (7) Respiratory failure with hypoxia Status: Resolved Assessment & Plan: s/p mechanical ventilation. Maintaining oxygenation on room air today. CXR without clear infiltrate or lung pathology. Qualifiers: Qualified Codes: J96.01 - Acute respiratory failure with hypoxia (8) Seizure disorder Status: Chronic Assessment & Plan: [place]. No recent seizure activity inpatient. (9) Methamphetamine abuse Status: Chronic Assessment & Plan: History of, urine negative on admit. (10) History of CVA (cerebrovascular accident) Status: Chronic (11) High risk social situation Status: Acute Assessment & Plan: Was living with girlfriend, and was with friends last few days prior to admission, states he has nowhere to live at this time. Given mental status, does not appear safe for discharge to home at this time either way. human services case manager consulted, SNF placement being pursued. (12) DVT prophylaxis Status: Acute Assessment & Plan: Enoxaparin treatment dose due to a fib SHANNAN DHILLON MD Jun 13, 2022 08:42
[2022-06-13] MEDS: ASPIRIN 81 MG CHEW (CHILDREN'S ASA) PO SCH (08:45)
[2022-06-13] MEDS: PANTOPRAZOLE 40 MG (PROTONIX) VIAL IV SCH (08:45)
[2022-06-13] MEDS: SENNOSIDES 8.6 MG (SENOKOT) TAB PO SCH ×2 (08:45→20:14)
[2022-06-13] MEDS: DOCUSATE SODIUM 100 MG (COLACE) CAP PO SCH ×2 (08:45→20:14)
[2022-06-13] MEDS ORDERED: meTOprolol TARTRATE 25 MG (LOPRESSOR) TABLET PO SCH ×2 (09:00→21:00)
--- NOTE | 2022-06-13 09:28 | Physical Therapy Daily Note ---
PT Daily Note-Current Subjective Patient more alert on this date. Brother present. Patient agrees to PT. Pain Section J - Health Conditions 1. Rarely or not at all 2. Occasionally 3. Frequently 4. Almost constantly 8. Unable to answer Pain Effect on Sleep: 1 Pain Interference with Therapy: 1 Pain Interference w/Day-to-Day: 1 Mental Status Patient Orientation: Person, Time, Situation Attachments: Lee Catheter, IV Transfers SCALE: Activities may be completed with or without assistive devices. 0-Qxjujjppkk-zakdsjq completes the activity by him/herself with no assistance from a helper. 5-Set-up or Clean-up Assistance-helper sets up or cleans up; patient completes activity. [place] assists only prior to or following the activity. 4-Supervision or Touching Assistance-helper provides verbal cues and/or touching/steadying and/or contact guard assistance as patient completes activity. Assistance may be provided throughout the activity or intermittently. 3-Partial/Moderate Assistance-helper does LESS THAN HALF the effort. [place] lifts, holds or supports trunk or limbs, but provides less than half the effort. 2-Substantial/Maximal Assistance-helper does MORE THAN HALF the effort. [place] lifts or holds trunk or limbs and provides more than half the effort. 9-Bzelfacrn-ulbvrq does ALL the effort. Patient does none of the effort to complete the activity. Or, the assistance of 2 or more helpers is required for the patient to complete the activity. If activity was not attempted, code reason: 7-Patient Refused. 9-Not Applicable-not attempted and the patient did not perform the activity before the current illness, exacerbation or injury. 10-Not Attempted due to Environmental Limitations-(lack of equipment, weather restraints, etc.). 88-Not Attempted due to Medical Conditions or Safety Concerns. Lying to Sitting/Side of Bed(Q: 6 Sit to Stand (QC): 3 Chair/Hyh-dj-Irddl Xfer(QC): 3 Gait Training Distance: 80' Walk 10 feet (QC): 3 Walk 50 ft with 2 Turns(QC): 3 Gait Assistive Device: FWW slightly unsteady with PT correct/VC's for body placement in FWW and to stand erect Assessment Patient fatigues with minimal activity and is up in recliner with chair alarm activated and family remains in room. PT to continue to increase activity as tolerated by patient. PT Mash Filter Operator Goals Mash Filter Operator Goals PT Snf Goals Time Frame: Jul 01, 2022 Roll Left & Right (QC): 6 Sit to Lying (QC): 6 Lying-Sitting on Side/Bed(QC): 6 Sit to Stand (QC): 6 Chair/Pjw-nf-Arkwd Xfer(QC): 6 Toilet Transfer (QC): 6 Walk 10 feet (QC): 6 Walk 50ft with 2 Turns (QC): 6 Walk 150 ft (QC): 6 PT Plan Treatment/Plan Treatment Plan: Continue Plan of Care Treatment Plan: Education, Functional Activity Paula, Functional Strength, Gait, Safety, Therapeutic Exercise, Transfers Treatment Duration: Jul 01, 2022 Frequency: 6 times per week Estimated Hrs Per Day: .25 hour per day Patient and/or Family Agrees t: Yes Time Time In: 900 Time Out: 917 DATE: Jun 13, 2022 Total Billed Treatment Time: 17 Total Billed Treatment 1 visit GT 17 min LORIE QUEVEDO PT Jun 13, 2022 09:28
[2022-06-13] MEDS: NOREPINEPHRINE 8 MG/250 ML 250 ML IV SCH (11:05)
--- NOTE | 2022-06-13 11:14 | Tele-ICU Progress Note ---
Subjective Date Seen by a Provider: Jun 13, 2022 Time Seen by a Provider: 11:14 Subjective/Events-last exam (Tele-ICU Physician , Progress Note ) Service provided via interactive audio and video telecommunications E-CARE system to a patient admitted to ICU bed in [facility]. Patient is seen today due to persistent need of ICU care Available chart/ vitals / labs / Images reviewed Video assessment done using teleICU camera, rest of exam as per RN Discussed with RN Events overnight : Afebrile hemodynamically stable Respiratory - I/O = Drips: Pressors- no Hospital course: (06/11) 84/F- C.P., Hypoxia, pna on imaging, nstemi, chf, //incr.- trop, gluc. gordon. (06/12) to CCL for successful PTCA to stenosis mid LAD A/P Acute resp failure. hypoxic - suspected pulm edema -cont diuresis with lasix - on VT 40 L 90 % to eat , now on BIPAP 15/8 70 % , rr 22 tv 500 TV 12 L CAD, NSTEMI on admission Status postcardiac catheterization and balloon angioplasty to the LAD - card follow - right coronary artery has a patent stent, at the ostium there is 95% lesion which need to be addressed at a later point. - on aspirin and Plavix Congestive heart failure, chronic compensated left ventricular systolic dysfunction ejection fraction. - as per cards - ECHO June 12, 2022 with moderate LVH, hypokinesia at the anterior wall, ejection fraction 45 to 50%, grade 2 diastolic dysfunction, mild to moderate mitral regurgitation, aortic valve sclerosis with no aortic stenosis, PA pr essure 35 to 40 mmHg UTI -Rocephin. DM II - levemir , ISS - po diet Parkinson's - mental status baseline Lines : , (Central Line Necessity Reviewed) Lee: + OG: Nutrition: PO Analgesia: Anxiety/ delirium VTE Prophylaxis: sarah 60 Stress Ulcer Prophylaxis: Plans in collaboration with bedside consultants and IM MDs. Discussed with RN to reach out if any questions or concerns Case and care daily discussed on multidisciplinary rounds ( RN, PharmD, Tennis Director , Respiratory Therapy, farm forestry and garden workers ) A total of 31 minutes of critical care time was devoted to this patient today, required to treat and/or prevent further deterioration of critical care condition ( as above ) . I am remotely monitoring this patient from another state. I am unable to do the bedside exam, and history/physical and pertinent information is taken from other notes in the computer and bedside staff. Sepsis Event Evaluation Height, Weight, BMI Height: 6'2.00" Weight: 259lbs. 0.0oz. [id number]; 33.50 BMI Method:Estimated Focused Exam Time of Focused Exam: 10:15 Exam Exam Patient acknowledged, consented, and participated in this virtual visit which was conducted using real time audio/video Vital Signs Date Time Temp Pulse Resp B/P (MAP) Pulse Ox O2 Delivery O2 Flow Rate FiO2 06/13/22 10:00 105 29 99 Nasal Cannula 3.00 06/13/22 09:00 116 15 161/82 (108) 95 Nasal Cannula 3.00 06/13/22 08:00 72 11 174/107 (129) 96 Nasal Cannula 3.00 06/13/22 07:40 Nasal Cannula 3.00 06/13/22 07:01 72 06/13/22 07:00 71 9 129/75 (93) 94 Room Air 06/13/22 06:00 62 24 122/97 (105) 98 Room Air 06/13/22 05:01 60 18 151/85 (107) 91 Room Air 06/13/22 04:03 63 33 144/85 (104) 94 Room Air 06/13/22 03:45 36.2 24 94 Room Air 06/13/22 03:45 Room Air 06/13/22 03:03 59 22 152/98 (139) 97 Room Air 06/13/22 02:00 64 28 162/101 (124) 99 Room Air 06/13/22 01:00 53 06/13/22 01:00 63 24 158/92 (114) 97 Room Air 06/13/22 00:04 60 17 162/109 (126) 96 Room Air 06/13/22 00:00 36.2 66 28 162/109 (126) 97 Room Air 06/12/22 23:45 Room Air 06/12/22 23:00 56 26 161/98 (109) 98 Room Air 06/12/22 23:00 56 26 161/98 (119) 94 Room Air 06/12/22 22:00 78 31 175/103 (127) 97 Room Air 06/12/22 22:00 78 28 175/103 (127) 94 Room Air 06/12/22 21:00 64 41 162/105 (124) 92 Room Air 06/12/22 21:00 71 28 162/105 (124) 99 Room Air 06/12/22 20:05 Room Air 06/12/22 20:00 76 30 161/101 (121) 96 Room Air 06/12/22 20:00 35.8 65 28 172/97 (122) 99 Room Air 06/12/22 19:00 72 38 154/105 (121) 98 Room Air 06/12/22 19:00 68 06/12/22 18:00 73 27 165/120 (135) 97 Room Air 06/12/22 17:00 76 35 154/84 (107) 97 Room Air 06/12/22 16:00 97 Room Air 06/12/22 16:00 76 30 169/131 (144) 98 Room Air 06/12/22 16:00 36.4 06/12/22 15:00 74 19 151/116 (128) 99 Room Air 06/12/22 14:00 66 23 113/91 (98) 98 Room Air 06/12/22 13:42 61 140/79 06/12/22 13:00 68 06/12/22 13:00 65 15 140/79 (99) 100 Room Air 06/12/22 12:00 65 11 151/79 (103) 98 Room Air 06/12/22 12:00 97 Room Air 06/12/22 11:16 98 Room Air 0.00 I & O 06/13/22 06:59 Intake Total 4515 ml Output Total 8190 ml Balance -3675 ml Height & Weight Height: 6'2.00" Weight: 259lbs. 0.0oz. 117.602138ir; 33.50 BMI Method:Estimated General Appearance: WD/WN, Chronically ill, Mild Distress HEENT: Other (POOR DENTITION, MULTIPLE CARIOUS TEETH; DRY ORAL MUCOSA; ABRASION/CONTUSION RIGHT EPISCOPAL/FOREHEAD) Neck: Normal Inspection, Supple Respiratory: Lungs Clear, Normal Breath Sounds Cardiovascular: Regular Rate, Rhythm Capillary Refill: Greater Than 3 Seconds (bilateral hands and feet) Peripheral Pulses: 2+ Dorsalis Pedis (R), 2+ Left Dors-Pedis (L), 2+ Radial Pulses (R), 2+ Radial Pulses (L) Gastrointestinal: normal bowel sounds, soft Extremity: Normal Range of Motion; No Pedal Edema, No Swelling Neurologic/Psychiatric: Alert, Disoriented Skin: Warm/Dry; No Rash; Other (R knee abrasion, L 4th toe closed blood blister, L 3rd toe closed blister, scabs on bilateral hands, L tomas scab, R back bruise, R head bruise, R eye blister) Results Lab Laboratory Tests 06/12/22 04:25 06/13/22 05:15 Assessment/Plan Assessment/Plan 1 FRANKO CHAIDEZ MD Jun 13, 2022 11:14
[2022-06-13] MEDS: LORazepam INJ 2 MG/ML (ATIVAN) VIAL IVP PRN ×2 (12:23→22:11)
[2022-06-13] MEDS: dilTIAZem DRIP PRE-MIX 125 ML IV SCH (12:40)
[2022-06-13] MEDS: fentaNYL DRIP PRE-MIX 250 ML IV SCH (12:40)
--- NOTE | 2022-06-13 13:41 | Speech Therapy Daily Note ---
Speech Daily Progress Note Subjective Date Seen by Provider: Jun 13, 2022 Time Seen by Provider: 12:50 The patient was lying in bed, awake and alert, upon entrance to his room by the clinician. The RN was present and stated the patient consumed medication orally without difficulty on this date. The patient repositioned self upright in his bed for appropriate and safe swallowing. The patient was agreeable to the dysphagia treatment session. To note, consistent verbal prompting was required by the clinician for the patient to remain on task. Objective The patient was agreeable to water via straw, puree, and ligia cracker P.O. trials. The patient was provided each trial by the clinician. The patient did not display s/s of suspected aspiration with any P.O. trial provided and his vocal quality remained clear following each bolus. Thin liquid was provided intermittently with solid consistencies to aid in bolus formation and posterior transfer. Recommendations: - Upgrade the patient's diet consistency to MM5 with thin liquids, as tolerated. - Fully upright and alert for P.O. intake. - Intermittent supervision throughout P.O. intake for patient safety and with meal set-up assistance, as needed. - Small bites and sips, only. - Remain upright for approximately 30 minutes following P.O. intake. - Monitor for s/s of suspected aspiration with P.O. intake. If demonstrated, please contact speech pathology. The results and recommendations were provided to the patient and the patient's RN immediately following completion. Assessment Assessment Current Status: Fair Progress Treatment Plan Continue Plan of Care Speech Short Term Goals Short Term Goals Short Term Goals 1. The patient will display safe swallowing precautions with 80% accuracy with moderate clinician, staff, and family member verbal prompting. Time Frame-STG: Three Days. Speech Alpine Guide Goals Alpine Guide Goals 1. The patient will tolerate the least restrictive diet consistency without s/s of suspected aspiration. Time Frame: Five Days. Speech-Plan Treatment Plan Speech Therapy Treatment Plan: Continue Plan of Care Treatment Duration: Jun 16, 2022 Frequency: 4 times per week Estimated Hrs Per Day: .25 hour per day Rehab Potential: Fair Pt/Family Agrees to Plan: Yes Safety Risks/Education Teaching Recipient: Patient Teaching Methods: Discussion Response to Teaching: Reinforcement Needed Education Topics Provided: Safe Swallowing Strategies Time Speech Therapy Time In: 12:50 Speech Therapy Time Out: 13:08 DATE: Jun 13, 2022 Total Billed Time: 18 Billed Treatment Time 1, LILIAM CARBALLO Jun 13, 2022 13:41
--- NOTE | 2022-06-13 14:36 | Physician Query Clarification ---
Physician Query-General Query to Physician: The medical record reflects the following clinical scenario: The patient, in the setting of History/Risk factors, Hx TBI and CVA with AMS on admission, DM, "PNA" per Consult Clinical Findings Admission VS/Labs: HR 91, RR 20, BP 208/114, SpO2 97% sat on 3 L T 39.7, WBC 20.3, glucose 640, troponin I 0.206, lactic acid 4.13, blood culture from day of admission positive for Staphylococcus hominis in 2 different blood cultures Treatment ER: Normal saline 5.5 L, D5 NS 1 L, 1/2 NS 1 L, Zosyn IV, vancomycin IV, Intubation Question: Do you agree with the impression of Sepsis with Septic Shock Present On Admission per Rohini Almazan and Dr. Yessy Mora? Sepsis has was not documented by attending on H and P and first three progress notes. Yes; will document Sepsis with septic shock, Present on admission in the progress Notes and discharge summary No; will continue current documentation in the Progress Notes Other; will document explanation of clinical findings Clinically undetermined; no explanation for clinical findings Please clarify and document your clinical opinion in the Progress Notes and Discharge Summary including the definitive and/or presumptive diagnosis, (suspected or probable), related to the above clinical findings. Please include clinical findings supporting your diagnosis. In responding to this query, please exercise your independent professional judgment. The purpose of this communication is to more accurately reflect the complexity of your patients condition. The fact that a question is asked does not imply that any particular answer is desired or expected. Thank you for timely response to this clarification. Mame Haynes, MSN, RN Clinical Furniture Mover Driver [phone] [email or web address] PHYSICIAN RESPONSE: Based on the clinical findings in the record, please respond to the query above on this document as an addendum. Physician Response: Physician Response yes If you have questions please contact: Director Epidemiology: Ext: Thank you for your time and cooperation. Clinical Furniture Mover Driver/Director Epidemiology This is a permanent part of the medical record MAME HAYNES Jun 13, 2022 14:36 LUANN MCFARLANE DO Jun 13, 2022 20:38 SHANNAN DHILLON MD Jun 14, 2022 11:55
--- NOTE | 2022-06-13 15:36 | Occupational Ther Daily Note ---
OT Current Status-Daily Note Subjective Agitated and restless Mental Status/Objective Patient Orientation: Person ADL-Treatment Therapy Code Descriptions/Definitions Functional Camp Measure: 0=Not Assessed/NA 4=Minimal Assistance 1=Total Assistance 5=Supervision or Setup 2=Maximal Assistance 6=Modified Camp 3=Moderate Assistance 7=Complete IndependenceSCALE: Activities may be completed with or without assistive devices. 1-Gwcjroulmr-ebybuae completes the activity by him/herself with no assistance from a helper. 5-Set-up or Clean-up Assistance-helper sets up or cleans up; patient completes activity. [place] assists only prior to or following the activity. 4-Supervision or Touching Assistance-helper provides verbal cues and/or touching/steadying and/or contact guard assistance as patient completes activity. Assistance may be provided throughout the activity or intermittently. 3-Partial/Moderate Assistance-helper does LESS THAN HALF the effort. [place] lifts, holds or supports trunk or limbs, but provides less than half the effort. 2-Substantial/Maximal Assistance-helper does MORE THAN HALF the effort. [place] lifts or holds trunk or limbs and provides more than half the effort. 0-Icyvxqvng-eygews does ALL the effort. Patient does none of the effort to complete the activity. Or, the assistance of 2 or more helpers is required for the patient to complete the activity. If activity was not attempted, code reason: 7-Patient Refused. 9-Not Applicable-not attempted and the patient did not perform the activity before the current illness, exacerbation or injury. 10-Not Attempted due to Environmental Limitations-(lack of equipment, weather restraints, etc.). 88-Not Attempted due to Medical Conditions or Safety Concerns. Unable to participate in ADLs, OT provided hand hygiene d/t evidence of oiled nails and web spaces Other Treatment Patient rolling excessively in bed and tangled cords and lines, followed instruc tion 50% to roll R/L and long sit in bed to detangle. Pt c/o pain to right shoulder but does not rate or describe Education OT Patient Education: Purpose of tx/functional activities, Reviewed precautions, Safety issues Teaching Recipient: Patient Response to Teaching: Unable to Comprehend OT Short Term Goals Short Term Goals Time Frame: Jun 16, 2022 Eatin Oral hygiene: 4 Toileting hygiene: 3 Shower/bathe self: 3 Upper body dressin Lower body dressin Putting on/taking off footwear: 3 OT Mcc Goals Research Director Goals Time Frame: Jun 23, 2022 Eating (QC): 6 Oral Hygiene (QC): 5 Toileting Hygiene (QC): 5 Shower/Bathe Self (QC): 5 Upper Body Dressing (QC): 5 Lower Body Dressing (QC): 5 On/Off Footwear (QC): 5 Additional Goals: 1-Demonstrate ADL Tasks, 2-Verbalize Understanding, 3- ImproveStrength/Paula 1=Demonstrate adherence to instructed precautions during ADL tasks. 2=Patient will verbalize/demonstrate understanding of assistive devices/modifications for ADL. 3=Patient will improve strength/tolerance for activity to enable patient to perform ADL's. OT Education/Plan Problem List/Assessment Assessment: Decreased Activ Tolerance, Decreased Safety Aware, Impaired Cognition, Impaired Coordination, Impaired Self-Care Skills Discharge Recommendations Plan/Recommendations: Continue POC Treatment Plan/Plan of Care Patient would benefit from OT for education, treatment and training to promote independence in ADL's, mobility, safety and/or upper extremity function for ADL's. Plan of Care: ADL Retraining, Functional Mobility, UE Funct Exercise/Act Treatment Duration: Jun 23, 2022 Frequency: 3 times per week (3-5 times a week) Estimated Hrs Per Day: .25 hour per day Agreement: Yes Rehab Potential: Fair Bed alarm activated RN notified of patient pulling lines Time Start Time: 15:25 Stop Time: 15:35 DATE: Jun 13, 2022 Total Time Billed (hr/min): 10 Billed Treatment Time FA 10 minutes MAURICIO CLEMENS OT Jun 13, 2022 15:36
[2022-06-13] MEDS: meTOprolol 5 MG/5 ML (LOPRESSOR) VIAL IV PRN ×2 (16:01→22:11)
[2022-06-13] MEDS: VALSARTAN 80 MG (DIOVAN) TAB PO SCH (16:01)
[2022-06-13] MEDS: meTOprolol TARTRATE 50 MG (LOPRESSOR) TAB PO SCH (20:11)
[2022-06-14] MEDS: fentaNYL INJ 100 MCG/2 ML AMP IVP PRN ×5 (00:01→19:39)
[2022-06-14] MEDS: NOREPINEPHRINE 8 MG/250 ML 250 ML IV SCH (01:51)
[2022-06-14] MEDS: meTOprolol 5 MG/5 ML (LOPRESSOR) VIAL IV PRN (02:23)
[2022-06-14] MEDS ORDERED: cloNIDine 0.1 MG (CATAPRES) TAB PO ONE (04:30)
[2022-06-14 04:42] LABS: BASOPHILS # (AUTO) 0.1 10^3/uL (0.0-0.1); BASOPHILS % (AUTO) 0 % (0-10); EOSINOPHILS # (AUTO) 0.2 10^3/uL (0.0-0.3); EOSINOPHILS % (AUTO) 2 % (0-10); HEMATOCRIT 33 % (40-54); HEMOGLOBIN 11.8 g/dL (13.3-17.7); LYMPHOCYTES # (AUTO) 1.6 10^3/uL (1.0-4.0); LYMPHOCYTES % (AUTO) 12 % (12-44); MEAN CORPUSCULAR HEMOGLOBIN 31 pg (25-34); MEAN CORPUSCULAR HGB CONC 36 g/dL (32-36); MEAN CORPUSCULAR VOLUME 87 fL (80-99); MEAN PLATELET VOLUME 11.2 fL (9.0-12.2); MONOCYTES # (AUTO) 1.2 10^3/uL (0.0-1.0); MONOCYTES % (AUTO) 9 % (0-12); NEUTROPHILS # (AUTO) 9.7 10^3/uL (1.8-7.8); NEUTROPHILS % (AUTO) 75 % (42-75); PLATELET COUNT 198 10^3/uL (130-400); WHITE BLOOD COUNT 12.9 10^3/uL (4.3-11.0)
[2022-06-14 04:49] LABS: ALBUMIN 2.6 GM/DL (3.2-4.5); POTASSIUM 3.5 MMOL/L (3.6-5.0)
[2022-06-14 04:52] LABS: TOTAL PROTEIN 4.8 GM/DL (6.4-8.2)
[2022-06-14 04:54] LABS: BILIRUBIN,TOTAL 0.6 MG/DL (0.1-1.0)
[2022-06-14 04:56] LABS: CREATININE SERUM 0.85 MG/DL (0.60-1.30)
[2022-06-14 04:59] LABS: MAGNESIUM 1.8 MG/DL (1.6-2.4)
[2022-06-14] MEDS: LORazepam INJ 2 MG/ML (ATIVAN) VIAL IVP PRN ×3 (04:59→19:38)
[2022-06-14] MEDS: inSUlin ASPART (NovoLOG) 1 UNIT/0.01 ML (CHARGE PER UNIT) SC SCH ×5 (06:31→20:52)
[2022-06-14] MEDS: ceFAZolin INJECTION 1,000 MG in NS (IVPB) 50 ML IV SCH ×3 (06:31→21:04)
[2022-06-14] MEDS: ENOXAPARIN 120 MG/0.8 ML (LOVENOX) SQ SCH ×2 (06:31→18:10)
--- NOTE | 2022-06-14 07:39 | Tele-ICU Progress Note ---
Subjective Date Seen by a Provider: Jun 14, 2022 Subjective/Events-last exam (Tele-ICU Physician , Progress Note ) Service provided via interactive audio and video telecommunications E-CARE system to a patient admitted to ICU bed in [facility]. Patient is seen today due to persistent need of ICU care Available chart/ vitals / labs / Images reviewed Video assessment done using teleICU camera, rest of exam as per RN Is a 66-year-old male with past medical history of hypertension, polysubstance abuse, seizure disorder, stroke, traumatic brain injury and hepatitis C presented to the emergency room with altered mental status. Apparently upon presentation to the emergency room he was incoherent and agitated he is intubated and put on mechanical ventilation for airway protection. Subsequently he is found to be in diabetic ketoacidosis and atrial fibrillation with RVR. He is a sedated. He was moving all 4 limbs but demonstrating signs of distress. He was put on CIWA protocol and given IV insulin now metabolic abnormalities resolved. He is currently on a vent tidal volume of 450/respiratory rate of 22 PEEP of 5 and FiO2 of 21%. Today the sedation was reduced today and tried to do a SBT but he is severely agitated and fighting the vent hence he is put back on sedation as well as put on assist control. At this time I have started on Precedex drip in preparation for weaning fentanyl and propofol to try him on SBT tomorrow. Also he is suspected to have a sepsis and he is being treated with Zosyn and vancomycin. His blood cultures grew gram-positive cocci in clusters presumably Staph aureus. Lumbar puncture was done and so far CSF grew no organisms and the analysis is suggestive of his uncontrolled diabetes mellitus rather than an infectious etiology. 06/14/22 Impression 1. Severe sepsis due to gram-positive organisms 2. Acute hypoxic respiratory failure 3. Diabetic ketoacidosis 4. Polysubstance abuse but at this time his urine drug screen is negative. Recommendations 1. We will continue IV antibiotics and await for identification and sensitivity of the organism 2. Continue to monitor his glucose levels 3. We will start on a Precedex drip and wean fentanyl and propofol as tolerated 4. Continue current vent settings and as he tolerates after starting Precedex will wean propofol and fentanyl and try SBT tomorrow. 5. DVT prophylaxis and ulcer prophylaxis. I am remotely monitoring this patient from Tele icu station in [place]. I am unable to do the bedside exam, and history/physical and pertinent information is taken from other notes in the computer and bedside staff. Certain portions of this document may have been dictated utilizing voice recognition technology such as [employer]. Inherent to this technology, typographical and grammatical errors may exist. As much as I am diligent to identify and correct to these mistakes, some errors may remain in the document. Critical care time due to gated to this patient today is Review of Systems PE PER RN Sepsis Event Evaluation Height, Weight, BMI Height: 6'2.00" Weight: 259lbs. 0.0oz. 117.345984ca; 30.14 BMI Method:Estimated Focused Exam Time of Focused Exam: 10:15 Exam Exam Patient acknowledged, consented, and participated in this virtual visit which was conducted using real time audio/video Vital Signs Date Time Temp Pulse Resp B/P (MAP) Pulse Ox O2 Delivery O2 Flow Rate FiO2 06/14/22 06:00 101 15 137/97 (110) 94 Room Air 06/14/22 05:00 99 24 158/106 (127) 97 Room Air 06/14/22 04:07 104 40 189/95 (142) 96 Room Air 06/14/22 04:00 37.2 06/14/22 04:00 118 20 195/96 (133) 96 Room Air 06/14/22 03:00 118 22 158/81 (123) 89 Room Air 06/14/22 02:16 124 21 178/87 (125) 93 Room Air 06/14/22 01:00 102 136/110 (112) 95 Room Air 06/14/22 00:40 105 34 150/95 (113) 92 Room Air 06/14/22 00:00 106 14 176/76 (109) 93 Room Air 06/14/22 00:00 37.0 06/13/22 23:00 82 21 93/80 (84) 94 Room Air 06/13/22 22:04 81 28 186/105 (157) 90 Room Air 06/13/22 22:00 82 19 190/111 (168) 88 Room Air 06/13/22 21:00 87 18 134/91 (106) Room Air 06/13/22 20:03 103 28 191/138 (155) 90 Room Air 06/13/22 20:00 96 Room Air 06/13/22 19:10 91 Room Air 06/13/22 19:00 113 21 167/90 (111) Room Air 06/13/22 18:00 125 25 170/93 (118) 90 Nasal Cannula 3.00 06/13/22 17:00 96 23 147/133 (138) 90 Nasal Cannula 3.00 06/13/22 16:00 36.8 06/13/22 16:00 94 47 175/133 (147) 90 Nasal Cannula 3.00 06/13/22 16:00 95 Room Air 06/13/22 15:00 149 20 192/127 (148) 96 Nasal Cannula 3.00 06/13/22 14:00 104 44 178/107 (130) 99 Nasal Cannula 3.00 06/13/22 13:00 125 13 97 Nasal Cannula 3.00 06/13/22 12:45 100 06/13/22 12:00 88 9 171/100 (123) 95 Nasal Cannula 3.00 06/13/22 12:00 96 Room Air 06/13/22 12:00 37.1 06/13/22 11:00 93 31 148/106 (120) 96 Nasal Cannula 3.00 06/13/22 10:00 105 29 99 Nasal Cannula 3.00 06/13/22 09:00 116 15 161/82 (108) 95 Nasal Cannula 3.00 06/13/22 08:00 72 11 174/107 (129) 96 Nasal Cannula 3.00 06/13/22 08:00 93 Room Air 06/13/22 08:00 37.0 06/13/22 07:40 Nasal Cannula 3.00 I & O 06/14/22 07:00 Intake Total 6325 ml Output Total 61627 ml Balance -5000 ml Height & Weight Height: 6'2.00" Weight: 259lbs. 0.0oz. 117.922704um; 30.14 BMI Method:Estimated General Appearance: WD/WN, Chronically ill, Mild Distress HEENT: Other (POOR DENTITION, MULTIPLE CARIOUS TEETH; DRY ORAL MUCOSA; ABRASION/CONTUSION RIGHT CAODAISM/FOREHEAD) Neck: Normal Inspection, Supple Respiratory: Lungs Clear, Normal Breath Sounds Cardiovascular: Regular Rate, Rhythm Capillary Refill: Greater Than 3 Seconds (bilateral hands and feet) Peripheral Pulses: 2+ Dorsalis Pedis (R), 2+ Left Dors-Pedis (L), 2+ Radial Pulses (R), 2+ Radial Pulses (L) Gastrointestinal: normal bowel sounds, soft Extremity: Normal Range of Motion; No Pedal Edema, No Swelling Neurologic/Psychiatric: Alert, Disoriented Skin: Warm/Dry; No Rash; Other (R knee abrasion, L 4th toe closed blood blister, L 3rd toe closed blister, scabs on bilateral hands, L tomas scab, R back bruise, R head bruise, R eye blister) Results Lab Laboratory Tests 06/13/22 05:15 06/14/22 04:36 MIGUEL HONEYCUTT MD Jun 14, 2022 07:39
--- NOTE | 2022-06-14 08:12 | Progress Note ---
Subjective Subjective/Events-last exam Sleeping, arouses to voice. Mumbles but understandable. Complaining of bilateral shoulder soreness. Returned to speak to brother about 20 minutes after initial exam and he notes Eric was a smoker and wonders if nicotine patch could help with agitation. Focused Exam Time of Focused Exam: 10:15 Objective Exam Last Set of Vital Signs Vital Signs Date Time Temp Pulse Resp B/P (MAP) Pulse Ox O2 Delivery O2 Flow Rate FiO2 06/14/22 07:00 152 28 145/103 (117) 96 Room Air 06/14/22 04:00 37.2 06/13/22 18:00 3.00 06/11/22 21:10 21 Capillary Refill : Greater Than 3 Seconds I&O Intake and Output 06/14/22 00:00 Intake Total 6625 ml Output Total 83939 ml Balance -5525 ml Intake Oral 3420 ml IV Total 3205 ml Output Urine Total 69974 ml # Bowel Movements 2 General: Alert, Mild Distress (appears uncomfortable, moving side to side in bed frequently) Lungs: Clear to Auscultation Heart: Regular Rate Abdomen: Normal Bowel Sounds, Soft, Other (mild diffuse ttp) Extremities: No Edema Skin: Other (mottled appearing areas of purple on legs and arms) Neuro: Other (oriented to self and location only) Results/Procedures Lab Laboratory Tests 06/13/22 11:28: Glucometer 200H 06/13/22 16:08: Glucometer 151H 06/13/22 21:46: Glucometer 343H 06/14/22 04:36: White Blood Count 12.9H, Red Blood Count 3.84L, Hemoglobin 11.8L, Hematocrit 33L , Mean Corpuscular Volume 87, Mean Corpuscular Hemoglobin 31, Mean Corpuscular Hemoglobin Concent 36, Red Cell Distribution Width 12.9, Platelet Count 198, Mean Platelet Volume 11.2, Immature Granulocyte % (Auto) 1, Neutrophils (%) (Auto) 75, Lymphocytes (%) (Auto) 12, Monocytes (%) (Auto) 9, Eosinophils (%) (Auto) 2, Basophils (%) (Auto) 0, Neutrophils # (Auto) 9.7H, Lymphocytes # (Auto) 1.6, Monocytes # (Auto) 1.2H, Eosinophils # (Auto) 0.2, Basophils # (Auto) 0.1, Immature Granulocyte # (Auto) 0.1, Sodium Level 139, Potassium Level 3.5L, Chloride Level 105, Carbon Dioxide Level 26, Anion Gap 8, Blood Urea Nitrogen 14, Creatinine 0.85, Estimat Glomerular Filtration Rate 97, BUN/Creatinine Ratio 16, Glucose Level 202H, Calcium Level 8.0L, Corrected Calcium 9.1, Phosphorus Level 2.0L, Magnesium Level 1.8, Total Bilirubin 0.6, Aspartate Amino Transf (AST/SGOT) 35H, Alanine Aminotransferase (ALT/SGPT) 41, Alkaline Phosphatase 83, Total Protein 4.8L, Albumin 2.6L, Triglycerides Level 104 Microbiology 06/09/22 Blood Culture - Preliminary, Resulted No growth 06/08/22 Gram Stain - Final, Complete 06/08/22 CSF Culture - Final, Complete No growth 06/08/22 MRSA Screen - Final, Complete MRSA not isolated 06/08/22 Urine Culture - Final, Complete NO GROWTH Assessment/Plan Assessment/Plan (1) Septic shock Status: Resolved Assessment & Plan: No longer requiring pressors, is on cefazolin. Blood culture with staph hominis. Sputum culture with normal bj. CSF cx negative. Repeat blood cultures 06/09 no growth to date. (2) Altered mental status Status: Acute Assessment & Plan: Altered mental status on admission after unknown period of altered state, CT head on admit with no acute intracranial hemorrhage or large vascular territory bunch-white loss. No intracranial mass, midline shift, or hydrocephalus. Previously demonstrated encephalomalacia in right frontal lobe stable. Intubated in ER. 06/13- alert and oriented to self and location, but unable to answer other questions with much consistency. Brother at bedside and notes he was having some altered mental status before admit, but is worse than he was. Uncertain at this time ultimate prognosis, given septic shock, DKA and unknown ill time prior to admit, ventilator course inpatient, but brother states he thinks this may be his new baseline as he is similar to yesterday. Would not rule out possibility of continued improvement. Continue to treat underlying conditions and monitor closely. 06/14- status similar to yesterday, follows some instructions, unable to feed self adequately this morning Qualifiers: Qualified Codes: R41.82 - Altered mental status, unspecified (3) DKA (diabetic ketoacidosis) Status: Resolved Assessment & Plan: Glucose over 600 on admit and positive beta hydroxybutyrate, had not been taking home medications. Now resolved. Diabetic diet, sliding scale insulin. Qualifiers: Qualified Codes: E13.10 - Other specified diabetes mellitus with ketoacidosis without coma (4) Acute kidney failure Status: Resolved Assessment & Plan: Suspect secondary to combination of septic shock and DKA. Resolved with treatment of underlying conditions. (5) Atrial fibrillation with rapid ventricular response Status: Acute Assessment & Plan: Cardiology consulted, appreciate recommendations. Paroxysmal a fib vs multifocal atrial tachycardia, has had more tachycardia overnight and this morning, metoprolol dose was increased evening of 06/13. 2D echo was done on June 08, 2022 with normal EF 60 to 65%, PA pressure 35 to 40 (6) Type 2 MS (myocardial infarction) Status: Acute Assessment & Plan: Cardiology consulted, appreciate recommendations, suspect type II MS related to respiratory failure and septic shock. (7) Respiratory failure with hypoxia Status: Resolved Assessment & Plan: s/p mechanical ventilation. Maintaining oxygenation on room air today. CXR without clear infiltrate or lung pathology. Qualifiers: Qualified Codes: J96.01 - Acute respiratory failure with hypoxia (8) Seizure disorder Status: Chronic Assessment & Plan: Keppra. No recent seizure activity inpatient. (9) Methamphetamine abuse Status: Chronic Assessment & Plan: History of, urine negative on admit. (10) History of CVA (cerebrovascular accident) Status: Chronic (11) Bilateral shoulder pain Status: Acute Assessment & Plan: Given persistent discomfort and unknown possibility of injury prior to admit, will check x-ray. IV fentanyl not working well, will try oral hydrocodone. Qualifiers: Qualified Codes: M25.511 - Pain in right shoulder; M25.512 - Pain in left shoulder (12) Hypertension Status: Chronic Assessment & Plan: Markedly elevated last 24 hours, resumed home ARB and thiazide and increased metoprolol dose. Still required IV metoprolol. Resume home amlodipine. Qualifiers: Qualified Codes: I10 - Essential (primary) hypertension (13) Tobacco use Status: Chronic Assessment & Plan: Will try nicotine patch to see if it helps with irritability/agitation (14) DVT prophylaxis Status: Acute Assessment & Plan: Enoxaparin treatment dose due to a fib (15) High risk social situation Status: Acute Assessment & Plan: Was living with girlfriend, and was with friends last few days prior to admission, states he has nowhere to live at this time. Given mental status, does not appear safe for discharge to home at this time either w ay. donor services manager consulted, SNF placement being pursued. SHANNAN DHILLON MD Jun 14, 2022 08:12
[2022-06-14] MEDS: VALSARTAN 80 MG (DIOVAN) TAB PO SCH (08:23)
[2022-06-14] MEDS: ASPIRIN 81 MG CHEW (CHILDREN'S ASA) PO SCH (08:24)
[2022-06-14] MEDS: DOCUSATE SODIUM 100 MG (COLACE) CAP PO SCH ×2 (08:24→19:39)
[2022-06-14] MEDS: meTOprolol TARTRATE 50 MG (LOPRESSOR) TAB PO SCH (08:24)
[2022-06-14] MEDS: SENNOSIDES 8.6 MG (SENOKOT) TAB PO SCH ×2 (08:24→19:39)
[2022-06-14] MEDS: PANTOPRAZOLE 40 MG (PROTONIX) VIAL IV SCH (08:25)
[2022-06-14] MEDS ORDERED: meTOprolol 5 MG/5 ML (LOPRESSOR) VIAL IV NR (08:30)
[2022-06-14] MEDS: HYDROcodone/APAP 5 MG/325 MG (LORTAB) TAB PO PRN ×2 (08:43→20:52)
[2022-06-14] MEDS ORDERED: VALSARTAN 80 MG (DIOVAN) TAB PO SCH (09:00)
[2022-06-14] MEDS ORDERED: amLODIPine 10 MG (NORVASC) TAB PO SCH (09:00)
[2022-06-14] MEDS ORDERED: NON-FORMULARY MEDICATION 1 EA EA (Olmesartan/Hydrochlorothiazide (Olmesartan-Hctz 40-25 mg PO SCH ×2 (09:00)
[2022-06-14] MEDS: NICOTINE 21 MG (NICODERM) PATCH TD SCH (09:23)
--- NOTE | 2022-06-14 09:23 | Cardiology Progress Note ---
Subjective Date Seen by Provider: Jun 14, 2022 Time Seen by Provider: 09:22 Subjective/Events-last exam Patient was seen at bedside, laying down comfortably Eating breakfast Having multiple episodes of paroxysmal atrial tachycardia Review of Systems General: No Chills, No Night Sweats, No Fatigue, No Malaise, No Appetite, No Other HEENT: No Head Aches, No Visual Changes, No Eye Pain, No Ear Pain, No Dysphasia, No Sinus Congestion, No Post Nasal Drip, No Sore Throat, No Other Pulmonary: No Dyspnea, No Cough, No Pleuritic Chest Pain, No Other Cardiovascular: No: Chest Pain, Palpitations, Orthopnea, Paroxysmal Noc. Dysp yasmin, Edema, Lt Headedness, Other Focused Exam Time of Focused Exam: 10:15 Objective-Cardiology Exam Last Set of Vital Signs Vital Signs 06/11/22 06/13/22 21:10 18:00 O2 Flow Rate 3.00 FiO2 21 I&O Intake and Output 06/14/22 00:00 Intake Total 6625 ml Output Total 61992 ml Balance -5525 ml Intake Oral 3420 ml IV Total 3205 ml Output Urine Total 39115 ml # Bowel Movements 2 General: Alert, Oriented X3, Cooperative, No Acute Distress HEENT: Atraumatic Neck: Supple Lungs: Clear to Auscultation Heart: Regular Rate Abdomen: Normal Bowel Sounds, Soft, Other (mild diffuse ttp) Extremities: No Clubbing, No Edema Skin: No Rashes Neuro: Normal Speech, Other (oriented to self and location only) Psych/Mental Status: Mental Status NL, Mood NL Results Lab Laboratory Tests 06/14/22 04:36 A/P-Cardiology Admission Diagnosis Acute respiratory failure Paroxysmal atrial fibrillation Change in mental status Type II myocardial infarction Assessment/Plan Status post acute respiratory failure, extubated and doing better Laying comfortably in bed, probably had anoxic brain injury but overall improving slowly Managed by medical team Sepsis with septic shock, Blood pressure is better. Continue to monitor closely Managed by medical team 2D echo was done on June 08, 2022 with normal EF 60 to 65%, PA pressure 35 to 40 mmHg Diabetic ketoacidosis, uncontrolled diabetes due to noncompliance. Improving slowly Acute renal failure, better Continue to monitor renal function closely Paroxysmal atrial fibrillation versus multifocal atrial tachycardia Currently in sinus rhythm with f multiple episodes of paroxysmal atrial tachycardia I will give him additional dose of Lopressor IV and increase the oral metoprolol dose Mild elevation in troponin, type II myocardial infarction secondary to respiratory failure and hypoxemia and sepsis. 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
--- NOTE | 2022-06-14 11:31 | Diagnostic Imaging Report ---
INDICATION: Bilateral shoulder pain COMPARISON: None available. TECHNIQUE: 4 radiographs of the bilateral shoulders dated 06/14/2022. FINDINGS: Right: Right IJ central venous catheter is partially visualized. Minimal degenerative changes of the acromioclavicular joint. No acute fracture or dislocation. No destructive osseous process. Subacromial space is well maintained. Glenohumeral joint relationship is well maintained. Left: Mild degenerative changes of the acromioclavicular joint and glenohumeral joint. No acute fracture or dislocation. No destructive osseous process. Subacromial space is well maintained. No suspicious radiopaque foreign body IMPRESSION: No acute osseous abnormality with mild degenerative changes present. Dictated by: Dictated on workstation # [id number]
--- NOTE | 2022-06-14 13:21 | Speech Therapy Daily Note ---
Speech Daily Progress Note Subjective Date Seen by Provider: Jun 14, 2022 Time Seen by Provider: 11:26 The patient was lying in bed, eyes closed while moving around the bed, upon entrance to the room by the clinician. The patient's brother is present at bedside and remains for the treatment session. With maximum, calm verbal encouragement, the patient was able to position himself upright in bed for safe swallowing. The patient was agreeable to participation in the skilled treatment session on this date. Objective Initially, the patient refused all P.O. trials, shaking his head "no" and keeping his eyes closed. With gentle verbal encouragement, the patient was agreeable to minimal P.O. trials. Per patient's brother, the patient has been "eating and drinking really well." The patient consumed consecutive large straw drinks of water, two teaspoons of applesauce, and three teaspoons of mixed fruit. The patient politely deferred oral trials of the ligia cracker. The patient did not display s/s of suspected aspiration with the P.O. trials provided. Prolonged mastication was present with the mixed fruit consistencies, however, complete bolus formation and posterior oral transfer were achieved. Following the limited trials, the patient shook his head "no." The clinician confirmed the patient did not wish to participate for additional solid trials and the patient agreed. At this time, the current plan of care is appropriate. If the patient's current confusion clears, speech pathology may be appropriate for cognitive therapy throughout his stay. Assessment Assessment Current Status: Fair Progress Treatment Plan Continue Plan of Care Speech Short Term Goals Short Term Goals Short Term Goals 1. The patient will display safe swallowing precautions with 80% accuracy with moderate clinician, staff, and family member verbal prompting. Time Frame-STG: Three Days. Speech Platform Software Engineer Goals Jail Goals 1. The patient will tolerate the least restrictive diet consistency without s/s of suspected aspiration. Time Frame: Five Days. Speech-Plan Treatment Plan Speech Therapy Treatment Plan: Continue Plan of Care Treatment Duration: Jun 16, 2022 Frequency: 4 times per week Estimated Hrs Per Day: .25 hour per day Rehab Potential: Fair Safety Risks/Education Teaching Recipient: Patient, Family Teaching Methods: Discussion Response to Teaching: Reinforcement Needed Education Topics Provided: Safe Swallowing Strategies Time Speech Therapy Time In: : Speech Therapy Time Out: 11:36 DATE: Jun 14, 2022 Total Billed Time: 10 Billed Treatment Time 1, DYST LILIAM GROVES Jun 14, 2022 13:21
--- NOTE | 2022-06-14 14:37 | Occupational Ther Daily Note ---
OT Current Status-Daily Note Subjective Transfer from ICU to 4th medical floor, brother is present and reports x rat transport just left because patient could not stand and transfer d/t weakness Appearance Patient present w/ less flailing of extremities and more rolling R/L, intermittent intelligible one-two word answers Mental Status/Objective Patient Orientation: Person, Eyes Open Attachments: Lee Catheter (pulling on tube) ADL-Treatment Therapy Code Descriptions/Definitions Functional [place] Measure: 0=Not Assessed/NA 4=Minimal Assistance 1=Total Assistance 5=Supervision or Setup 2=Maximal Assistance 6=Modified [place] 3=Moderate Assistance 7=Complete IndependenceSCALE: Activities may be completed with or without assistive devices. 4-Hrqdftmobn-bvtpymr completes the activity by him/herself with no assistance from a helper. 5-Set-up or Clean-up Assistance-helper sets up or cleans up; patient completes activity. [place] assists only prior to or following the activity. 4-Supervision or Touching Assistance-helper provides verbal cues and/or touching/steadying and/or contact guard assistance as patient completes activity. Assistance may be provided throughout the activity or intermittently. 3-Partial/Moderate Assistance-helper does LESS THAN HALF the effort. [place] lift s, holds or supports trunk or limbs, but provides less than half the effort. 2-Substantial/Maximal Assistance-helper does MORE THAN HALF the effort. [place] lifts or holds trunk or limbs and provides more than half the effort. 0-Mhprhikcg-luurbl does ALL the effort. Patient does none of the effort to complete the activity. Or, the assistance of 2 or more helpers is required for the patient to complete the activity. If activity was not attempted, code reason: 7-Patient Refused. 9-Not Applicable-not attempted and the patient did not perform the activity before the current illness, exacerbation or injury. 10-Not Attempted due to Environmental Limitations-(lack of equipment, weather restraints, etc.). 88-Not Attempted due to Medical Conditions or Safety Concerns. Eating (QC): 2 (does not feed self) Oral Hygiene (QC): 2 Shower/Bathe Self (QC): 88 Upper Body Dressing (QC): 2 Lower Body Dressing (QC): 1 On/Off Footwear: 1 Toileting Hygiene (QC): 1 Toilet Transfer (QC): 1 Patient stood x3 for 15-30 seconds each interval, side step to HOB to reposition for comfort, HOB elevation lowered to reduce gravity to pull patient downward in bed. Other Treatment ROM, mm massage upper trap mm, delts, lats and rhomboids d/t reports muscle pain and - x ray for acute findings Education OT Patient Education: Correct positioning, Instructions to caregiver, Progress toward Goal/Update tx plan, Purpose of tx/functional activities, Reviewed precautions, Rehab process, Safety issues, Transfer techniques Teaching Recipient: Patient, Family Teaching Methods: Demonstration Response to Teaching: Reinforcement Needed OT Short Term Goals Short Term Goals Time Frame: Jun 16, 2022 Eatin Oral hygiene: 4 Toileting hygiene: 3 Shower/bathe self: 3 Upper body dressin Lower body dressin Putting on/taking off footwear: 3 OT Care Home Goals Care Home Goals Time Frame: Jun 23, 2022 Eating (QC): 6 Oral Hygiene (QC): 5 Toileting Hygiene (QC): 5 Shower/Bathe Self (QC): 5 Upper Body Dressing (QC): 5 Lower Body Dressing (QC): 5 On/Off Footwear (QC): 5 Additional Goals: 1-Demonstrate ADL Tasks, 2-Verbalize Understanding, 3- ImproveStrength/Paula 1=Demonstrate adherence to instructed precautions during ADL tasks. 2=Patient will verbalize/demonstrate understanding of assistive devices/modifications for ADL. 3=Patient will improve strength/tolerance for activity to enable patient to perform ADL's. OT Education/Plan Problem List/Assessment Assessment: Decreased Activ Tolerance, Decreased Safety Aware, Decreased UE Strength, Impaired Cognition, Impaired Coordination, Impaired Funct Balance, Impaired Self-Care Skills Discharge Recommendations Plan/Recommendations: Continue POC Treatment Plan/Plan of Care Patient would benefit from OT for education, treatment and training to promote independence in ADL's, mobility, safety and/or upper extremity function for ADL's. Plan of Care: ADL Retraining, Functional Mobility, UE Funct Exercise/Act Treatment Duration: Jun 23, 2022 Frequency: 3 times per week (3-5 times a week) Estimated Hrs Per Day: .25 hour per day Agreement: Yes Rehab Potential: Fair Returned to bed following therapy w/ bed alarm set Time Start Time: 14:00 Stop Time: 14:23 DATE: Jun 14, 2022 Total Time Billed (hr/min): 23 Billed Treatment Time EX 23 min MAURICIO CLEMENS OT Jun 14, 2022 14:37
--- NOTE | 2022-06-14 15:11 | Physical Therapy Daily Note ---
PT Daily Note-Current Subjective Patient lying supine in bed upon PT arrival, not agreeable to treatment. Patient reports 5/10 pain in "liver", abdomen, shoulder and seems confused at this time. Pain Section J - Health Conditions 1. Rarely or not at all 2. Occasionally 3. Frequently 4. Almost constantly 8. Unable to answer Pain Effect on Sleep: 1 Pain Interference with Therapy: 1 Pain Interference w/Day-to-Day: 1 Transfers SCALE: Activities may be completed with or without assistive devices. 8-Yuygxmohld-svejrag completes the activity by him/herself with no assistance from a helper. 5-Set-up or Clean-up Assistance-helper sets up or cleans up; patient completes activity. [place] assists only prior to or following the activity. 4-Supervision or Touching Assistance-helper provides verbal cues and/or touching/steadying and/or contact guard assistance as patient completes activity. Assistance may be provided throughout the activity or intermittently. 3-Partial/Moderate Assistance-helper does LESS THAN HALF the effort. [place] lifts, holds or supports trunk or limbs, but provides less than half the effort. 2-Substantial/Maximal Assistance-helper does MORE THAN HALF the effort. [place] lifts or holds trunk or limbs and provides more than half the effort. 7-Vrjunbabl-zssdwh does ALL the effort. Patient does none of the effort to complete the activity. Or, the assistance of 2 or more helpers is required for the patient to complete the activity. If activity was not attempted, code reason: 7-Patient Refused. 9-Not Applicable-not attempted and the patient did not perform the activity before the current illness, exacerbation or injury. 10-Not Attempted due to Environmental Limitations-(lack of equipment, weather restraints, etc.). 88-Not Attempted due to Medical Conditions or Safety Concerns. Roll Left & Right (QC): 4 Sit to Lying (QC): 4 Assessment Current Status: Poor Progress Patient refused treatment however upon PT arrival, patient had slid down to the foot of the bed and his legs were both hanging off. He was able to work on bed mobility including positioning, scooting and turning to achieve proper placement in the bed. Nurse in room administering medicine post treatment. Patient in bed post treatment with all needs met, nurse in room and call light in hand. PT Oyster Buyer Goals Custodial Goals PT [place] Buyer Goals Time Frame: Jul 01, 2022 Roll Left & Right (QC): 6 Sit to Lying (QC): 6 Lying-Sitting on Side/Bed(QC): 6 Sit to Stand (QC): 6 Chair/Sct-rw-Jxuyh Xfer(QC): 6 Toilet Transfer (QC): 6 Walk 10 feet (QC): 6 Walk 50ft with 2 Turns (QC): 6 Walk 150 ft (QC): 6 PT Plan Treatment/Plan Treatment Plan: Continue Plan of Care Treatment Plan: Education, Functional Activity [place], Functional Strength, Gait, Safety, Therapeutic Exercise, Transfers Treatment Duration: Jul 01, 2022 Frequency: 6 times per week Estimated Hrs Per Day: .25 hour per day Patient and/or Family Agrees t: Yes Safety Risks/Education Patient Education: Transfer Techniques, Correct Positioning Teaching Recipient: Patient Teaching Methods: Demonstration, Discussion Response to Teaching: Reinforcement Needed Time Time In: 1422 Time Out: 1432 DATE: Jun 14, 2022 Total Billed Treatment Time: 10 Total Billed Treatment Visit, SUN MONTALVO PT Jun 14, 2022 15:11
--- NOTE | 2022-06-14 17:39 | Diagnostic Imaging Report ---
EXAMINATION: Abdomen 1 view HISTORY: Abdominal pain COMPARISON: None available. FINDINGS: There is a moderate amount of gas and stool throughout the colon. Nonobstructive bowel gas pattern. No radiopaque foreign body. The lung bases are clear. Degenerative changes of the hips and spine. Osseous structures are otherwise intact. IMPRESSION: Moderate stool burden without other acute abnormality in the abdomen. Dictated by: Dictated on workstation # [id number]
[2022-06-14 19:24] VITALS: BP 123/62
[2022-06-14] MEDS ORDERED: meTOprolol TARTRATE 50 MG (LOPRESSOR) TAB PO SCH (21:00)
[2022-06-14 23:50] VITALS: BP 98/55
[2022-06-15 03:23] VITALS: BP 98/65
[2022-06-15] MEDS: LORazepam INJ 2 MG/ML (ATIVAN) VIAL IVP PRN (04:56)
[2022-06-15 05:45] LABS: ABG BASE EXCESS -9.6 MMOL/L (-2.5-2.5); ABG OXYGEN SATURATION 98 % (94-100); ABG PCO2 21 MMHG (35-45); ABG PH 7.44 (7.37-7.43); ABG PO2 100 MMHG (79-93); ABG TCO2 14.6 MMOL/L (21.0-31.0)
[2022-06-15 05:46] LABS: ALLENS TEST YES-POS
[2022-06-15 05:47] LABS: INSPIRED O2 RA; PATIENT TEMP 36.2; VENTILATOR NO
[2022-06-15] MEDS: inSUlin ASPART (NovoLOG) 1 UNIT/0.01 ML (CHARGE PER UNIT) SC SCH (05:51)
--- NOTE | 2022-06-15 05:59 | Diagnostic Imaging Report ---
INDICATION: Tachypnea. Difficulty breathing. COMPARISON: 05/23/2022 FINDINGS: Single frontal radiograph view of the chest was obtained and demonstrates markedly shallow inspiratory volumes with probable patchy bibasilar atelectasis. There is no large effusion or pneumothorax. Cardiac silhouette and pulmonary vasculature within normal limits. Right internal jugular central venous catheter is seen with tip in the SVC. Osseous structures show no gross acute abnormalities. IMPRESSION: 1. Low lung volumes with probable bibasilar atelectasis. Dictated by: Dictated on workstation # [id number]
[2022-06-15 06:00] VITALS: BP 55/40
[2022-06-15] MEDS ORDERED: NS IV 1000 ML 1,000 ML ONE (06:28)
[2022-06-15] MEDS ORDERED: NOREPINEPHRINE 8 MG/250 ML 250 ML IV ONE (06:48)
[2022-06-15 06:57] VITALS: BP 68/39
[2022-06-15] MEDS ORDERED: inSUlin (REGULAR) HUMAN 1 UNIT/0.01 ML (CHARGE PER UNIT) ONE (07:10)
[2022-06-15] MEDS ORDERED: morphine INJ 4 MG/ML 1 ML (VIAL/SYRINGE) ONE (07:19)
--- NOTE | 2022-06-15 07:36 | Physical Therapy Progress Note ---
Therapy Progress Note PT to dismiss patient from services at this time per physician due to decline in medical status and transfer to ICU. Per physician, patient will go comfort care measures. LORIE QUEVEDO PT Jun 15, 2022 07:36
[2022-06-15] MEDS ORDERED: GLYCOPYRROLATE 0.2 MG/ML (ROBINUL) 2 ML VIAL IV PRN (07:45)
[2022-06-15] MEDS ORDERED: PROMETHAZINE INJ 25 MG/ML (PHENERGAN) AMP IVP PRN (07:45)
[2022-06-15] MEDS ORDERED: RT-ALBUTEROL/IPRATROPIUM 3 ML (DUONEB) VIAL INH PRN (07:45)
[2022-06-15] MEDS ORDERED: BISACODYL 10 MG SUPP (DULCOLAX) PR PRN (07:45)
[2022-06-15] MEDS ORDERED: LORazepam INJ 2 MG/ML (ATIVAN) VIAL IVP PRN (07:45)
[2022-06-15] MEDS ORDERED: ONDANSETRON 4 MG/2 ML (SDV) Z0FRAN IVP PRN (07:45)
[2022-06-15] MEDS ORDERED: ARTIFICAL TEARS 0.4 ML UNIT DOSE (REFRESH PLUS) OU PRN (07:45)
[2022-06-15] MEDS ORDERED: ACETAMINOPHEN 650 MG SUPP (TYLENOL) PR PRN (07:45)
[2022-06-15] MEDS ORDERED: morphine INJ 4 MG/ML 1 ML (VIAL/SYRINGE) IV PRN (07:45)
[2022-06-15] MEDS ORDERED: SALIVA SUBSTITUTE 60 ML SPRAY(MOUTHKOTE) MM PRN (07:45)
--- NOTE | 2022-06-15 07:49 | Progress Note ---
Subjective Subjective/Events-last exam Received call around 5 am that patient had increased respiratory rate and work of breathing, maintaining oxygenation. Chest x-ray ordered. At about 6:30, received call that he had decreased alertness, increasing heart rate and decreasing blood pressure and hypoxia. Labs reportedly showed hemoglobin down to 5, but [employer] was down and unable to clarify remainder of labs including ABG at that time. IV fluid bolus was started, additional labs and EKG ordered and transferred to ICU. I arrived around 6:50. Pt in ICU and with labored breathing, pale, diaphoretic, unresponsive to voice or touch, with eyes partly open. His nurse had just talked to his brother who was on the way and stated he felt patient would want to be DNR and not intubated again. Focused Exam Time of Focused Exam: 10:15 Objective Exam Last Set of Vital Signs Vital Signs Date Time Temp Pulse Resp B/P (MAP) Pulse Ox O2 Delivery O2 Flow Rate FiO2 06/15/22 03:23 36.8 70 18 98/65 (76) Room Air 0.00 0.00 06/14/22 23:50 98 06/11/22 21:10 21 Capillary Refill : Less Than 3 Seconds I&O Intake and Output 06/14/22 23:59 Intake Total 2520 ml Output Total 3300 ml Balance -780 ml Intake Oral 2520 ml Output Urine Total 3300 ml # Bowel Movements 3 General: Severe Distress Lungs: Other (ronchi throughout) Heart: Regular Rate Abdomen: Normal Bowel Sounds, Soft, No Tenderness (no apparent tenderness, but minimal overall responsiveness limit reliability of exam) Skin: Other (ecchymosis on lower left abdomen, mottling of legs) Psych/Mental Status: Other (eyes half open, unresponsive to voice or touch) Results/Procedures Lab Laboratory Tests 06/14/22 08:32: Glucometer 164H 06/14/22 10:18: Glucometer 198H 06/14/22 11:37: Glucometer 153H 06/14/22 15:22: Glucometer 282H 06/14/22 20:21: Glucometer 399H 06/15/22 04:53: Glucometer 375H 06/15/22 05:35: Blood Gas Puncture Site L BRACH, Blood Gas Patient Temperature 36.2, Arterial Blood pH 7.44H, Arterial Blood Partial Pressure CO2 21L, Arterial Blood Partial Pressure O2 100H, Arterial Blood HCO3 14*L, Arterial Blood Total CO2 14.6L, Arterial Blood Oxygen Saturation 98, Arterial Blood Base Excess -9.6L, [place] Test YES-POS, Blood Gas Ventilator Setting NO, Blood Gas Inspired Oxygen RA 06/15/22 05:37: 06/15/22 06:53: Glucometer 328H Microbiology 06/09/22 Blood Culture - Final, Complete No growth 06/08/22 Gram Stain - Final, Complete 06/08/22 CSF Culture - Final, Complete No growth 06/08/22 MRSA Screen - Final, Complete MRSA not isolated 06/08/22 Urine Culture - Final, Complete NO GROWTH Assessment/Plan Assessment/Plan (1) Altered mental status Status: Acute Assessment & Plan: Altered mental status on admission after unknown period of altered state, CT head on admit with no acute intracranial hemorrhage or large vascular territory bunch-white loss. No intracranial mass, midline shift, or hydrocephalus. Previously demonstrated encephalomalacia in right frontal lobe stable. Intubated in ER. 06/13- alert and oriented to self and location, but unable to answer other questions with much consistency. Brother at bedside and notes he was having some altered mental status before admit, but is worse than he was. Uncertain at this time ultimate prognosis, given septic shock, DKA and unknown ill time prior to a dmit, ventilator course inpatient, but brother states he thinks this may be his new baseline as he is similar to yesterday. Would not rule out possibility of continued improvement. Continue to treat underlying conditions and monitor closely. 06/14- status similar to yesterday, follows some instructions, unable to feed self adequately this morning 06/15- acute decompensated unresponsiveness, suspect secondary to hypoxia and hypotension. Discussed with family (brother and daughter) and they are confident he would want to be comfortable rather than aggressive care, comfort care orders initiated. Qualifiers: Qualified Codes: R41.82 - Altered mental status, unspecified (2) Septic shock Status: Resolved Assessment & Plan: No longer requiring pressors, is on cefazolin. Blood culture with staph hominis. Sputum culture with normal bj. CSF cx negative. Repeat blood cultures 06/09 no growth to date. 06/15- Hypotensive this am, lactic acid pending, WBC increased, CXR pending. Discussed with family (brother and daughter) and they are confident he would want to be comfortable rather than aggressive care, comfort care orders initiated. (3) Acute blood loss anemia Status: Acute Assessment & Plan: 06/15- Hemoglobin with massive drop this am, supsect GI bleed, however no bloody stools, no vomiting blood and abdomen soft. Enoxaparin stopped. Given change to comfort care will not pursue transfusion and scopes. (4) DKA (diabetic ketoacidosis) Status: Resolved Assessment & Plan: Glucose over 600 on admit and positive beta hydroxybutyrate, had not been taking home medications. Now resolved. Diabetic diet, sliding scale insulin. 06/15- pH above 7.4 on ABG this am, but bicarb low. Glucose in the 300s, received 5 units sliding scale around 5 am, 5 units IV insulin ordered with repeat glucose still 300s. Discussed with family (brother and daughter) and they are confident he would want to be comfortable rather than aggressive care, comfort care orders initiated. Qualifiers: Qualified Codes: E13.10 - Other specified diabetes mellitus with ketoacidosis without coma (5) Acute kidney failure Status: Resolved Assessment & Plan: Suspect secondary to combination of septic shock and DKA. Resolved with treatment of underlying conditions. 06/15- labs pending (6) Atrial fibrillation with rapid ventricular response Status: Acute Assessment & Plan: Cardiology consulted, appreciate recommendations. Paroxysmal a fib vs multifocal atrial tachycardia, has had more tachycardia overnight and this morning, metoprolol dose was increased evening of 06/13. 2D echo was done on June 08, 2022 with normal EF 60 to 65%, PA pressure 35 to 40 06/15- intermittent elevated heart rate, now with hypotension. Discussed with family (brother and daughter) and they are confident he would want to be comfortable rather than aggressive care, comfort care orders initiated. (7) Type 2 AK (myocardial infarction) Status: Acute Assessment & Plan: Cardiology consulted, appreciate recommendations, suspect type II AK related to respiratory failure and septic shock. 06/15- Acute worsened status, EKG without ST elevation, troponin pending, however family pursuing comfort goals at this point. (8) Respiratory failure with hypoxia Status: Resolved Assessment & Plan: s/p mechanical ventilation. Maintaining oxygenation on room air today. CXR without clear infiltrate or lung pathology. 06/15- acute worsening respiratory status this am, CXR ordered, per nursing appeared clear, but system down and I was unable to view. Running in 80s on non- rebreather. Per family status changed to DNR, they do not believe he would want intubated again. Qualifiers: Qualified Codes: J96.01 - Acute respiratory failure with hypoxia (9) Seizure disorder Status: Chronic Assessment & Plan: Keppra. No recent seizure activity inpatient. (10) Methamphetamine abuse Status: Chronic Assessment & Plan: History of, urine negative on admit. (11) History of CVA (cerebrovascular accident) Status: Chronic (12) Bilateral shoulder pain Status: Acute Assessment & Plan: Given persistent discomfort and unknown possibility of injury prior to admit, will check x-ray. IV fentanyl not working well, will try oral hydrocodone. Xray with no acute fractures. Qualifiers: Qualified Codes: M25.511 - Pain in right shoulder; M25.512 - Pain in left shoulder (13) Hypertension Status: Chronic Assessment & Plan: Markedly elevated last 24 hours, resumed home ARB and thiazide and increased metoprolol dose. Still required IV metoprolol. Resume home amlodipine. Qualifiers: Qualified Codes: I10 - Essential (primary) hypertension (14) Tobacco use Status: Chronic Assessment & Plan: Will try nicotine patch to see if it helps with irritability/agitation (15) High risk social situation Status: Acute Assessment & Plan: Was living with girlfriend, and was with friends last few days prior to admission, states he has nowhere to live at this time. Given m ental status, does not appear safe for discharge to home at this time either way. supervisor volunteer services consulted, SNF placement being pursued. 06/15 changed to comfort goals (16) DVT prophylaxis Status: Acute Assessment & Plan: Enoxaparin treatment dose due to a fib 06/15 d/c, concern for bleeding and changed to comfort care SHANNAN DHILLON MD Jun 15, 2022 07:49
[2022-06-15 07:57] LABS: ALBUMIN 2.4 GM/DL (3.2-4.5); CALCIUM 7.4 MG/DL (8.5-10.1); CREATININE SERUM 2.33 MG/DL (0.60-1.30); MAGNESIUM 2.2 MG/DL (1.6-2.4); POTASSIUM 5.5 MMOL/L (3.6-5.0); TOTAL PROTEIN 4.2 GM/DL (6.4-8.2)
--- NOTE | 2022-06-15 08:49 | Discharge Summary ---
Discharge Summary Date of Admission Jun 08, 2022 at 12:36 Date of Discharge Jun 15, 2022 Admission Diagnosis Altered mental status Septic shock Acute respiratory failure Atrial fibrillation with RVR Seizure Diabetic ketoacidosis Acute kidney insufficiency Type II NV Obesity Comfort Measures/ End of Life Care: Comfort Measures Date of : Jun 15, 2022 Time of : 07:50 66 yo male with history of TBI, stroke, DMII and substance use among other medical history, initially admitted after being found down at friend's home and found in ER to have DKA and septic shock- with acute renal insufficiency and persistent altered mental stauts. He required intubation in ER and was treated aggressively for sepsis. CXR, urine culture and LP did not clearly reveal source of infection, but he did have positive blood cultures for staph hominis. He was able to be extubated on 06/11, and MEGAN resolved. He remained confused and agitated and on the day prior to his he was unable to feed himself, although he could answer some questions. After resolution of septic shock and MEGAN, he began to be hypertensive and anti-hypertensives were restarted. Nursing facility placement was being pursued. Pt had rapid response called early am 06/15 after he had increased respiratory rate followed by decreasing blood pressure and consciousness. Morning labs showed marked drop in hemoglobin, but no source of bleeding noted, no hematemesis, hematochezia and abdomen was soft. He was still on antibiotics (cefazolin) for septic shock with positive blood cultures on admit, but repeat blood cultures were negative and he had been successfully extubated earlier in the hospitalization after his acute respiratory failure. Repeat labs were ordered to eval for recurrence of sepsis, fluid bolus started and hw as transferred to the ICU and started on norepinephrine, EKG obtained. He continued to have worsening hypoxia even on non-rebreather, although x-ray was unremarkable. Additionally ABG showed low bicarb, although pH was not low. He had low PCO2 as well. However, family (daughter and brother) stated he would not want aggressive care and would not want to go back on ventilator and goals were changed to comfort, after which he quickly. Discharge Diagnosis (1) Septic shock Status: Resolved (2) History of CVA (cerebrovascular accident) Status: Chronic (3) High risk social situation Status: Acute (4) Altered mental status Status: Acute Qualifiers: Qualified Codes: R41.82 - Altered mental status, unspecified (5) Acute kidney failure Status: Resolved (6) Seizure disorder Status: Chronic (7) DKA (diabetic ketoacidosis) Status: Resolved Qualifiers: Qualified Codes: E13.10 - Other specified diabetes mellitus with ketoacidosis without coma (8) Methamphetamine abuse Status: Chronic (9) Atrial fibrillation with rapid ventricular response Status: Acute (10) Respiratory failure with hypoxia Status: Resolved Qualifiers: Qualified Codes: J96.01 - Acute respiratory failure with hypoxia (11) Type 2 NV (myocardial infarction) Status: Acute (12) Hypertension Status: Chronic Qualifiers: Qualified Codes: I10 - Essential (primary) hypertension (13) Acute blood loss anemia Status: Acute SHANNAN DHILLON MD Jun 15, 2022 08:49
[2022-06-15] MEDS ORDERED: NICOTINE PATCH REMOVAL TP SCH (08:59)
[2022-06-15] MEDS: PANTOPRAZOLE 40 MG (PROTONIX) VIAL IV SCH (09:09)
[2022-06-15] MEDS: NICOTINE 21 MG (NICODERM) PATCH TD SCH (09:09)
== END 2022-06-15 07:50 | disposition expired | DRG 871 ==
LOC: EDUNIT# 09:00 → ER 09:02 → ICU 12:36 → 4TH 06-14 12:26 → ICU 06-15 06:35
PROVIDERS: ADMIT Internal Medicine; ATTEND Family Medicine
PROC: 02HV33Z Insertion of Infusion Device into Superior Vena Cava, Percutaneous Approach (ICD-10-PCS; principal; 2022-06-08)
PROC: 009U3ZX Drainage of Spinal Canal, Percutaneous Approach, Diagnostic (ICD-10-PCS; 2022-06-08)
PROC: 03HY32Z Insertion of Monitoring Device into Upper Artery, Percutaneous Approach (ICD-10-PCS; 2022-06-08)
PROC: 5A1945Z Respiratory Ventilation, 24-96 Consecutive Hours (ICD-10-PCS; 2022-06-08)
PROC: 0BH17EZ Insertion of Endotracheal Airway into Trachea, Via Natural or Artificial Opening (ICD-10-PCS; 2022-06-08)
DX: A41.9 Sepsis, unspecified organism (principal); E11.10 Type 2 diabetes mellitus with ketoacidosis without coma; I21.A1 Myocardial infarction type 2; J96.01 Acute respiratory failure with hypoxia; R65.21 Severe sepsis with septic shock; N17.9 Acute kidney failure, unspecified; D62 Acute posthemorrhagic anemia; I50.22 Chronic systolic (congestive) heart failure; N39.0 Urinary tract infection, site not specified; Z79.82 Long term (current) use of aspirin; Z79.84 Long term (current) use of oral hypoglycemic drugs; Z79.899 Other long term (current) drug therapy; Z79.4 Long term (current) use of insulin; E78.00 Pure hypercholesterolemia, unspecified; G40.909 Epilepsy, unspecified, not intractable, without status epilepticus; Z86.73 Personal history of transient ischemic attack (TIA), and cerebral infarction without residual deficits; E11.9 Type 2 diabetes mellitus without complications; Z66 Do not resuscitate; F41.9 Anxiety disorder, unspecified; F32.A Depression, unspecified; Z20.822 Contact with and (suspected) exposure to COVID-19; E78.5 Hyperlipidemia, unspecified; R65.20 Severe sepsis without septic shock; F19.10 Other psychoactive substance abuse, uncomplicated; M25.512 Pain in left shoulder; M25.511 Pain in right shoulder; I25.10 Atherosclerotic heart disease of native coronary artery without angina pectoris; G20 Parkinson's disease; I48.0 Paroxysmal atrial fibrillation; I11.0 Hypertensive heart disease with heart failure; E66.9 Obesity, unspecified; Z51.5 Encounter for palliative care; Z68.30 Body mass index [BMI] 30.0-30.9, adult
CPT/HCPCS: 31500; 36415; 36556; 36600; 51702; 70450; 71045; 74018; 80048; 80053; 80202; 80306; 80320; 81000; 82010; 82550; 82805; 82945; 82947; 83036; 83605; 83735; 84100; 84157; 84478; 84484; 85007; 85025; 85027; 85610; 85730; 87040; 87070; 87077; 87081; 87088; 87106; 87186; 87205; 87389; 87529; 87636; 87804; 89051; 93005; 93306; 94002; 94003; 94640; 94799; 99291